=== PATIENT | female | born 1975 | race Caucasian/White ===

== ENCOUNTER 2020-08-24 10:10 | Day surgery (SDC) | payer OTHER, SELFPAY ==
[2020-08-17 19:44] VITALS: BMI 56.7
--- NOTE | 2020-08-23 10:45 | P.CONAN_ITS ---
HPI - Anesthesia Eval Consult details Narrative: 44yo F for Colonoscopy s/p gastric bypass 1999 [facility] Past Medical History Medical History Bipolar depression Contusion of right knee Encounter for insertion of mirena IUD Gastritis Heart murmur Hiatal hernia with GERD Moderate asthma DARRIUS on CPAP Rectovaginal fistula Urinary bladder disorder Vomiting Surgical History Surgical History Gastric bypass status for obesity (~1999) H/O dilation and curettage History of colonoscopy History of open reduction and internal fixation (ORIF) procedure Hx laparoscopic cholecystectomy (2009) Social History Social History Smoking Status: Never smoker Second Hand Smoke Exposure: No Meds Allergies Allergy/AdvReac Type Severity Reaction Status Date / Time nitrofurantoin Allergy Unknown unknown Verified 08/24/20 10:25 [From MACROBID] Adhesive Tape Allergy Unknown Hives Uncoded 08/24/20 10:25 macrobid Allergy Unknown Rash Uncoded 08/24/20 10:25 SEASONAL ALLERGIES Allergy Unknown respiratory Uncoded 08/24/20 10:25 symptoms Home Medications Medication Instructions Recorded Confirmed Type aripiprazole 10 mg PO DAILY 08/17/20 08/17/20 History clonazepam 1 tab PO BID 08/17/20 08/17/20 History fluticasone propion-salmeterol 2 inh INHALATION BID 08/17/20 08/17/20 History [Wixela Inhub] furosemide 20 mg PO DAILY PRN 08/17/20 08/17/20 History oxycodone-acetaminophen 1 tab PO QID 08/17/20 08/17/20 History Exam Exam Date and Time: August 23, 2020 1045 Height,Weight and Vital Signs: Height 5 ft 3 in Weight 145.15 kg Narrative Narrative: ECHO 09/2019: Essential nml study, cannot r/o PFO Assessment and Plan Assessment Anesthesia Assessment: Chart Reviewed
--- NOTE | 2020-08-24 10:21 | PC.NURSE ---
patient staters she has a mirena iud.
[2020-08-24 10:22] VITALS: BP 155/90; PULSE 77; RESP 106; TEMP 36.3; O2SAT 99
[2020-08-24] MEDS: Lactated Ringers 1,000 ML 100 ML IVCONT (10:34)
--- NOTE | 2020-08-24 11:06 | HO.ANESPROP2 ---
FORMERLY [facility], 1928–1983 Past Medical History Medical History Bipolar depression Contusion of right knee Encounter for insertion of mirena IUD Gastritis Heart murmur Hiatal hernia with GERD Moderate asthma DARRIUS on CPAP Rectovaginal fistula Urinary bladder disorder Vomiting Surgical History Surgical History Gastric bypass status for obesity (~1999) H/O dilation and curettage History of colonoscopy History of open reduction and internal fixation (ORIF) procedure Hx laparoscopic cholecystectomy (2009) Social History Social History Smoking Status: Never smoker Second Hand Smoke Exposure: No Use of substances other than those prescribed or required for medical reasons: No Advance Directives: No Advance Directives Information Provided: No Advance Directives on File: No Recently lost weight without trying: No Meds Allergies Allergy/AdvReac Type Severity Reaction Status Date / Time nitrofurantoin Allergy Unknown unknown Verified 08/24/20 10:25 [From MACROBID] Adhesive Tape Allergy Unknown Hives Uncoded 08/24/20 10:25 macrobid Allergy Unknown Rash Uncoded 08/24/20 10:25 SEASONAL ALLERGIES Allergy Unknown respiratory Uncoded 08/24/20 10:25 symptoms Home Medications Medication Instructions Recorded Confirmed Type aripiprazole 10 mg PO DAILY 08/17/20 08/17/20 History clonazepam 1 tab PO BID 08/17/20 08/17/20 History fluticasone propion-salmeterol 2 inh INHALATION BID 08/17/20 08/17/20 History [Wixela Inhub] furosemide 20 mg PO DAILY PRN 08/17/20 08/17/20 History oxycodone-acetaminophen 1 tab PO QID 08/17/20 08/17/20 History Exam Exam Date and Time: August 24, 2020 1106 Height,Weight and Vital Signs: Height 5 ft 3 in Weight 145.15 kg Last Vital Signs Temp 97.3 F 08/24/20 10:22 Pulse 77 08/24/20 10:22 Resp 106 H 08/24/20 10:22 BP 155/90 H 08/24/20 10:22 Pulse Ox 99 08/24/20 10:22 Airway Mallampati Class: II TM Dist: >3cm Neck ROM: Full Loose/Missing/Broken Teeth: No Heart: RRR Lungs: CTA Assessment and Plan Assessment Anesthesia Assessment: Anesthesia Plan Discussed and Chart Reviewed Final Anesthetic Review NPO: Yes ASA Class: III Final Preanesthetic Review: Meds/Allgs Chart Reviewed, Consent Obtained/Reviewed and Anes Risks/Benef Reviewed Patient Risk: Intermediate Procedure Risk: Intermediate Anesthetic Plan Anesthetic Plan: MAC: Disposition: Standard PACU
--- NOTE | 2020-08-24 11:20 | MHC.SHP ---
Pre-Procedural Eval Section B Chief Complaint: change in bowel habit Details of Present Illness: hx of rectovaginal fistula, uncertain etiology, assess for crohns Relevant Family History (Specify if Yes): No Relevant Social History: None Present Medications: see Short Stay Collaborative assessment Medical History: Significant History (Bipolar depression Contusion of right knee Gastritis Heart murmur Hiatal hernia with GERD Moderate asthma DARRIUS on CPAP Rectovaginal fistula Urinary bladder disorder Vomiting) History of Previous Operations: Relevant previous surgery/procedure and date(s) (Gastric bypass status for obesity (~1999) H/O dilation and curettage History of colonoscopy History of open reduction and internal fixation (ORIF) procedure Hx laparoscopic cholecystectomy (2009)) Allergies: Allergies Allergy/AdvReac Type Severity Reaction Status Date / Time nitrofurantoin Allergy Unknown unknown Verified 08/24/20 10:25 [From MACROBID] Adhesive Tape Allergy Unknown Hives Uncoded 08/24/20 10:25 macrobid Allergy Unknown Rash Uncoded 08/24/20 10:25 SEASONAL ALLERGIES Allergy Unknown respiratory Uncoded 08/24/20 10:25 symptoms Review of Systems Sugical H&P ROS: Negative: Constitution, Cardiovascular, Respiratory, Neurological, Psychiatric, Hem-Onc, Allergic/Immunologic, Gastrointestinal, Genitourinary, Musculoskeletal, Integumentary, Endocrine and Eyes/Ears/Nose/Throat Exam Surgical H&P Exam: Normal: HEENT, Normal: Heart, Normal: Lungs, Normal: Extremities, Normal: Abdomen, Normal: Skin and Normal: Neurological Plan Diagnosis/Plan: Unchanged I have reviewed the history and physical and performed a pertinent physical examination on my patient. No changes have occurred unless specified.
[2020-08-24 12:25] VITALS: BP 113/72; PULSE 100; RESP 14; TEMP 36.5; O2SAT 99
[2020-08-24 12:40] VITALS: BP 115/83; PULSE 79; RESP 18; TEMP 36.5; O2SAT 97
--- NOTE | 2020-08-24 14:02 | HO.POSTANES ---
Post Anesthesia Evaluation Post Anesthesia Evaluation Vital Signs: Vital Signs Temp Pulse Resp BP Pulse Ox 08/24/20 12:40 97.7 F 79 18 115/83 97 08/24/20 12:25 97.7 F 100 14 113/72 99 08/24/20 10:22 97.3 F 77 106 H 155/90 H 99 Anesthesia: Monitored Mental Status: Awake Pain Control: Satisfactory Nausea/Vomiting: None Hydration: Adequate Anesthesia-Related Issues: No Anes. Related Issues
--- NOTE | 2020-09-14 21:21 | P.OP_ITS ---
Operative Note Operative Note Date of Service: 08/24/20 Narrative: Date of Service: 08/24/20 Pre-op diagnosis: nausea, diarrhea, hx of rectovaginal fistula Post-op diagnosis: same Procedure: Operative Information Procedure Description: EGD, Colonoscopy FLEXIBLE TRANSORAL UPPER GASTROINTESTINAL ENDOSCOPY AND COLONOSCOPY PROCEDURE NOTE UPPER ENDOSCOPY Consent: Indications for the procedure and potential complications of bleeding, perforation, reaction to medications and missed diagnosis were discussed with the patient and informed consent was obtained. Instrument: Olympus GIF H 190 J mid size upper endoscope Monitoring: Vital signs and clinical assessment, continuous EKG monitoring, Pulse oximetry, Carbon Dioxide monitoring and blood pressure monitoring were done throughout the procedure. Procedure: The patient was placed in the left lateral decubitis position and pre-procedure medications were administered and a bite block was placed. The endoscope was inserted into the mouth and advanced under direct vision to the jejunum. A careful inspection was made as the upper endoscope was withdrawn including a retroflexed examination of the proximal stomach; Findings and interventions are described below. Hx of vianney en Y gastric bypass Findings: Larynx:normal Esophagus: GE junction at 37 cm, diaphragm hiatus at 37 cm, normal mucosa Stomach pouch: Normal mucosa. Biopsies were obtained. Grade 2 flap valve on retroflexed examination of the cardia. jejunum: some erythema and induration at the gastric anastomosis, bx taken Intervention: Biopsies as noted above COLONOSCOPY Instrument: Olympus variable stiffness pediatric scope 190L Colonoscopy Monitoring: Vital signs and clinical assessment, continuous EKG monitoring, Pulse oximetry, Carbon Dioxide monitoring and blood pressure monitoring were done throughout the procedure. Colon withdrawal time was 28 minutes. Procedure: The patient was placed in the left lateral decubitis position and pre-procedure medications were administered. After a digital rectal examination of the ano-rectum, the video colonoscope was inserted into the rectum and advanced through the colon to the cecum/TI. The colonoscope was slowly withdrawn in a retrograde panoramic fashion and the colon mucosa was carefully examined including a retroflexed view of the rectum. Findings and interventions are described below. Procedure Difficulty:moderate, LLQ pressure applied Seton noted on entry to the rectum Findings: Terminal Ileum-normal, bx taken random colon bx taken Cecum:normal Ascending Colon: normal Transverse Colon -normal Descending Colon:normal Sigmoid Colon: scattered small diverticula noted Rectum: Retroflexion with small internal hemorrhoids, grade I Anorectum - normal, seton noted Colon preparation: Colcord Bowel Preparation Scale Right colon; 2 Transverse colon: 3 Left colon; 3 (0 = Unprepared colon segment with mucosa not seen due to solid stool that cannot be cleared. 1 = Portion of mucosa of the colon segment seen, but other areas of the colon segment not well seen due to staining, residual stool and/or opaque liquid. 2 = Minor amount of residual staining, small fragments of stool and/or opaque liquid, but mucosa of colon segment seen well. 3 = Entire mucosa of colon segment seen well with no residual staining, small fragments of stool or opaque liquid) Impression and Post Procedure Diagnosis: Endoscopy Findings: mild anastomotic erythema Colonoscopy Findings: diverticulosis internal hemorrhoids Plan: Await Pathology results Repeat Colonoscopy in 10 years or earlier if clinically indicated High fiber diet leaflet avoid straining at stool, epsom salts and sitz bath, anusol supps or cream review if she has ever had Pelvic MRI given the fistula hx might consider trial of carafate given erythema in anastomosis site Above findings were reviewed with the patient and relevant handouts were provided if indicated. Surgeon: Yvon Gomez MD Anesthesia: MAC Estimated blood loss (mL): 0 Condition: stable Disposition: PACU
== END 2020-08-24 13:21 | disposition home or self-care (01) ==
PROVIDERS: PCP Internal Medicine; Visit Provider Internal Medicine Gastroenterology
PROC: (CPT 45380; principal; 2020-08-24 12:00)
DX: R19.4 Change in bowel habit (principal); K57.30 Diverticulosis of large intestine without perforation or abscess without bleeding; K64.0 First degree hemorrhoids; K29.80 Duodenitis without bleeding; K21.9 Gastro-esophageal reflux disease without esophagitis; K44.9 Diaphragmatic hernia without obstruction or gangrene; Z98.0 Intestinal bypass and anastomosis status; Z98.84 Bariatric surgery status; J45.909 Unspecified asthma, uncomplicated; G47.33 Obstructive sleep apnea (adult) (pediatric); Z79.899 Other long term (current) drug therapy; Z99.89 Dependence on other enabling machines and devices; Z90.49 Acquired absence of other specified parts of digestive tract
CPT/HCPCS: 45380; 43239; 88305; 88342; J2250; J2765

== ENCOUNTER → 2020-09-20 15:08 | Outpatient (BNVA) | payer OTHER, SELFPAY | PROVIDERS: PCP Internal Medicine; Visit Provider Internal Medicine Gastroenterology ==

== ENCOUNTER → 2020-12-13 15:41 | Outpatient (BNVA) | payer OTHER, SELFPAY | PROVIDERS: PCP Internal Medicine; Visit Provider Internal Medicine Gastroenterology ==

== ENCOUNTER → 2021-01-04 09:22 | Outpatient (REF) | payer OTHER, SELFPAY ==
--- NOTE | ~2021-01-04 | NM_ITS ---
EXAMINATION: NM HIDA SCAN CLINICAL INFORMATION: Left upper quadrant pain . COMPARISON: None TECHNIQUE: 5 mCi technetium mebrofenin. Imaging over the upper abdomen. FINDINGS: Uptake by the liver is within normal limits. There is ductal activity by 6 minutes. Bowel activity by 9 minutes. No evidence of gallbladder activity. Reportedly status post-cholecystectomy. NM/NM hepatobiliary wo pharm IMPRESSION: No suspicious finding in this patient which is reportedly status post-cholecystectomy.
== END ==
LOC: HO.NUCMED 09:22
PROVIDERS: PCP Internal Medicine; Visit Provider Internal Medicine Gastroenterology
DX: R10.12 Left upper quadrant pain (principal); R10.11 Right upper quadrant pain
CPT/HCPCS: 78226; A9537

== ENCOUNTER → 2021-03-13 08:04 | Outpatient (BNVA) | payer OTHER, SELFPAY | PROVIDERS: PCP Internal Medicine; Visit Provider Internal Medicine Gastroenterology ==

== ENCOUNTER → 2022-01-01 12:28 | Outpatient (BNVA) | payer OTHER, SELFPAY | PROVIDERS: PCP Internal Medicine; Visit Provider Internal Medicine Gastroenterology | DX: Z13.89 Encounter for screening for other disorder (principal) ==

== ENCOUNTER 2022-04-26 06:25 | Day surgery (SDC) | payer OTHER, SELFPAY ==
[2022-04-19 13:40] VITALS: BMI 45.7
--- NOTE | 2022-04-26 06:45 | P.HPSUR_ITS ---
Pre-Procedural Eval Section A Date of Service: 04/26/22 Section B Chief Complaint: Vomiting, Relevant Family History (Specify if Yes): No Relevant Social History: None Present Medications: see Short Stay Collaborative assessment Medical History: Significant History (Asthma Bipolar depression Contusion of right knee Encounter for insertion of mirena IUD Gastritis Heart murmur Hiatal hernia with GERD Moderate asthma DARRIUS on CPAP Rectovaginal fistula Urinary bladder disorder Vomiting) History of Previous Operations: Relevant previous surgery/procedure and date(s) (Gastric bypass status for obesity (~1999) H/O dilation and curettage History of colonoscopy History of esophagogastroduodenoscopy (EGD) History of open reduction and internal fixation (ORIF) procedure Hx laparoscopic cholecystectomy (2009)) Allergies: Allergies Allergy/AdvReac Type Severity Reaction Status Date / Time nitrofurantoin Allergy Unknown unknown Verified 03/13/21 08:05 [From MACROBID] NSAIDS (Non-Steroidal AdvReac Mild Stomach Verified 03/13/21 08:05 Anti-Inflamma issues Adhesive Tape Allergy Intermediate Hives Uncoded 04/19/22 13:24 SEASONAL ALLERGIES Allergy Intermediate respiratory Uncoded 04/19/22 13:24 symptoms Review of Systems Sugical H&P ROS: Negative: Constitution, Cardiovascular, Respiratory, Neurological, Psychiatric, Hem-Onc, Allergic/Immunologic, Gastrointestinal, Genitourinary, Musculoskeletal, Integumentary, Endocrine and Eyes/Ears/N ose/Throat Exam Surgical H&P Exam: Normal: HEENT, Normal: Heart, Normal: Lungs, Normal: Extremities, Normal: Abdomen, Normal: Skin and Normal: Neurological Plan Diagnosis/Plan: Unchanged I have reviewed the history and physical and performed a pertinent physical examination on my patient. No changes have occurred unless specified.
[2022-04-26 06:53] LABS: UPreg QC Valid YES; Urine Pregnancy NEGATIVE (NEGATIVE)
[2022-04-26] MEDS: Lactated Ringers 1,000 ML 50 ML IVCONT (06:55)
[2022-04-26 06:56] VITALS: BP 103/70; PULSE 80; RESP 16; TEMP 36.4; O2SAT 98
--- NOTE | 2022-04-26 07:33 | HO.ANESPROP2 ---
HPI - Anesthesia Eval Consult details Narrative: 46 yo female patient for EGD PMFSH Active Problems Active Problems: All Active Problems (Updated 04/19/22 @ 13:40 by Alicia Damon RN) LUQ pain (Acute) Diarrhea (Acute) RUQ pain (Acute) Colovaginal fistula (Acute) Colovesical fistula (Acute) DARRIUS. On CPAP Morbid obesity Past Medical History Medical History Asthma Bipolar depression Contusion of right knee Encounter for insertion of mirena IUD Gastritis Heart murmur Hiatal hernia with GERD Moderate asthma DARRIUS on CPAP Rectovaginal fistula Urinary bladder disorder Vomiting Family History Family History Father Hx of type 1 diabetes mellitus Mother Hx of colon cancer, stage IV Family history of problems with anesthesia: No Surgical History Surgical History Gastric bypass status for obesity (~1999) H/O dilation and curettage History of colonoscopy History of esophagogastroduodenoscopy (EGD) History of open reduction and internal fixation (ORIF) procedure Hx laparoscopic cholecystectomy (2009) History of Problems with Anesthesia: No Social History Social History Household Members: Spouse Alcohol intake: current Alcohol intake frequency: does not drink Patient Tobacco Use Status: Never used Tobacco Second Hand Smoke Exposure: No Use of substances other than those prescribed or required for medical reasons: No Are you DNR?: No Advance Directives: No (states is HCP) Advance Directives Information Provided: Yes (as above noted) Advance Directives on File: No Recently lost weight without trying: No Eating poorly because of decreased appetite: No Nutrition Risks: No Nutritional Risk Meds Allergies Allergy/AdvReac Type Severity Reaction Status Date / Time nitrofurantoin Allergy Unknown unknown Verified 03/13/21 08:05 [From MACROBID] NSAIDS (Non-Steroidal AdvReac Mild Stomach Verified 03/13/21 08:05 Anti-Inflamma issues Adhesive Tape Allergy Intermediate Hives Uncoded 04/19/22 13:24 SEASONAL ALLERGIES Allergy Intermediate respiratory Uncoded 04/19/22 13:24 symptoms Active Medications: Current Medications Albuterol Sulfate (Albuterol Sulfate (0.083%) 2.5 Mg/3 Ml Vial.Neb) 2.5 mg INHALE ONCE PRN PRN Reason: Shortness of Breath/Wheezing Lactated Ringer's (Lr) 1,000 mls @ 50 mls/hr IVCONT .Q20H SCOTTY Last Admin: 04/26/22 06:55 Dose: 50 mls/hr Home Medications Medication Instructions Recorded Confirmed Last Taken Type aripiprazole 10 mg tablet 5 mg PO DAILY 08/17/20 04/19/22 Unknown History clonazepam 1 mg tablet 1 tab PO BID 08/17/20 04/19/22 Unknown History fluticasone 250 mcg-salmeterol 50 2 inh inhalation BID 08/17/20 08/17/20 Unknown History mcg/dose blistr powdr for inhalation (Marivel Inhub) oxycodone-acetaminophen 5 mg-325 1 tab PO QID 08/17/20 04/19/22 Unknown History mg tablet nystatin 100,000 unit/gram topical topical 12/13/20 Unknown History powder albuterol sulfate 90 mcg/actuation 2 puff inhalation Q4-6H PRN 04/19/22 04/26/22 04/26/22 05:00 History aerosol inhaler (ProAir HFA) Wheezing gabapentin 300 mg capsule 1 cap PO TID 04/19/22 04/19/22 Unknown History ipratropium 0.5 mg-albuterol 3 mg 3 ml inhalation Q4-6H PRN Wheezing 04/19/22 04/19/22 Unknown History (2.5 mg base)/3 mL nebulization soln loperamide 2 mg capsule 1 cap PO DAILY PRN Loose Stool 04/19/22 04/19/22 Unknown History Exam Exam Date and Time: April 26, 2022 0733 Height,Weight and Vital Signs: Height 5 ft 2 in Weight 113.398 kg Last Vital Signs Temp 97.5 F 04/26/22 06:56 Pulse 80 04/26/22 06:56 Resp 16 04/26/22 06:56 BP 103/70 04/26/22 06:56 Pulse Ox 98 04/26/22 06:56 O2 Del Method 04/26/22 06:56 Pertinent Lab Results Pertinent Lab Results: Laboratory Tests 04/26/22 06:37 Urine Test NEGATIVE Airway Mallampati Class: II TM Dist: >3cm Neck ROM: Full Loose/Missing/Broken Teeth: No (Crowns intact. No broken, missing or loose teeth per patient) Heart: RRR Lungs: Diminished. Clear bilaterally Assessment and Plan Assessment Anesthesia Assessment: Anesthesia Plan Discussed and Chart Reviewed Final Anesthetic Review Family History of Problems with Anesthesia: No History of Problems with Anesthesia: No NPO: Yes ASA Class: III Final Preanesthetic Review: No Changes in Pt Med Stat, Meds/Allgs Chart Reviewed, Consent Obtained/Reviewed and Anes Risks/Benef Reviewed Patient Risk: Intermediate Procedure Risk: Low Assessment/Block/Sedation in SS: Assess/Block/Sedation-SS Anesthetic Plan Anesthetic Plan: MAC: Disposition: Standard PACU
--- NOTE | 2022-04-26 08:44 | W.PM.OPN ---
Operative Note Operative Note Date of Service: 04/26/22 Narrative: Procedure Description: EGD Indication: vomiting Anesthesia: MAC FLEXIBLE TRANSORAL UPPER GASTROINTESTINAL ENDOSCOPY UPPER ENDOSCOPY Consent: Indications for the procedure and potential complications of bleeding, perforation, reaction to medications and missed diagnosis were discussed with the patient and informed consent was obtained. Instrument: Olympus GIF H 190 J mid size upper endoscope Monitoring: Vital signs and clinical assessment, continuous EKG monitoring, Pulse oximetry, Carbon Dioxide monitoring and blood pressure monitoring were done throughout the procedure. Procedure: The patient was placed in the left lateral decubitis position and pre-procedure medications were administered and a bite block was placed. The endoscope was inserted into the mouth and advanced under direct vision to the jejunum. A careful inspection was made as the upper endoscope was withdrawn including a retroflexed examination of the proximal stomach; Findings and interventions are described below. Findings: Larynx:normal Esophagus: GE junction at 30 cm, diaphragm hiatus at 34 cm, consistent with 4 cm sliding hiatal hernia. Stomach pouch: normal mucosa. Grade 2 flap valve on retroflexed examination of the cardia. At gastric outlet edema and erythema noted with distortion. jejunum: on jejunal side ulcer noted, austin grade III about 10-14 mm in diamter, bx taken Intervention: Biopsies as noted above Impression/Findings: anastomotic ulcer hiatal hernia PLAN: check h pylori breath test if not taking PPI, see if can do today, otherwise bring her back high dose PPI for 3 months with sucralfate avoid nsaids, avoid smoking
[2022-04-26 08:50] VITALS: BP 103/71; PULSE 76; RESP 16; TEMP 36.4; O2SAT 96
[2022-04-26 09:05] VITALS: BP 109/71; PULSE 61; RESP 15; O2SAT 96
[2022-04-26 09:20] VITALS: BP 116/75; PULSE 69; RESP 16; TEMP 37; O2SAT 96
== END 2022-04-26 09:53 | disposition home or self-care (01) ==
PROVIDERS: Anesthesiology; PCP Internal Medicine; Visit Provider Internal Medicine Gastroenterology
PROC: 0DJ08ZZ Inspection of Upper Intestinal Tract, Via Natural or Artificial Opening Endoscopic (ICD-10-PCS; CPT 43235; principal; 2022-04-26 08:00)
DX: R11.10 Vomiting, unspecified (principal); K28.9 Gastrojejunal ulcer, unspecified as acute or chronic, without hemorrhage or perforation; K44.9 Diaphragmatic hernia without obstruction or gangrene; K21.9 Gastro-esophageal reflux disease without esophagitis; K29.70 Gastritis, unspecified, without bleeding; Z98.84 Bariatric surgery status; E03.9 Hypothyroidism, unspecified; J45.909 Unspecified asthma, uncomplicated; G47.33 Obstructive sleep apnea (adult) (pediatric); F31.9 Bipolar disorder, unspecified; Z79.51 Long term (current) use of inhaled steroids; Z79.899 Other long term (current) drug therapy; Z99.89 Dependence on other enabling machines and devices; Z88.1 Allergy status to other antibiotic agents; Z88.8 Allergy status to other drugs, medicaments and biological substances; Z90.49 Acquired absence of other specified parts of digestive tract
CPT/HCPCS: 43239; 81025; 88305; 88342; J2250

== ENCOUNTER 2022-10-02 11:22 | Day surgery (SDC) | payer OTHER, SELFPAY ==
[2022-10-02 11:29] LABS: UPreg QC Valid YES; Urine Pregnancy NEGATIVE (NEGATIVE)
[2022-10-02 11:32] VITALS: BP 114/69; PULSE 87; RESP 18; TEMP 36.3; O2SAT 98; BMI 59.1
--- NOTE | 2022-10-02 11:36 | HO.ANESPROP2 ---
HPI - Anesthesia Eval Consult details Narrative: 46 yo female patient for EGD PMFSH Active Problems Active Problems: All Active Problems (Updated 04/19/22 @ 13:40 by Alicia Damon RN) LUQ pain (Acute) Diarrhea (Acute) RUQ pain (Acute) Colovaginal fistula (Acute) Colovesical fistula (Acute) Past Medical History Medical History Asthma Bipolar depression Contusion of right knee Encounter for insertion of mirena IUD Gastritis Heart murmur Hiatal hernia with GERD Moderate asthma DARRIUS on CPAP Rectovaginal fistula Urinary bladder disorder Vomiting Family History Family History Father Hx of type 1 diabetes mellitus Mother Hx of colon cancer, stage IV Family history of problems with anesthesia: No Surgical History Surgical History Gastric bypass status for obesity (~1999) H/O dilation and curettage History of colonoscopy History of esophagogastroduodenoscopy (EGD) History of open reduction and internal fixation (ORIF) procedure Hx laparoscopic cholecystectomy History of Problems with Anesthesia: No Social History Social History Household Members: Spouse Alcohol intake: current Alcohol intake frequency: does not drink Patient Tobacco Use Status: Never used Tobacco Second Hand Smoke Exposure: No Advance Directives: No Advance Directives Information Provided: Yes Meds Allergies Allergy/AdvReac Type Severity Reaction Status Date / Time nitrofurantoin Allergy Unknown unknown Verified 07/02/22 13:46 [From MACROBID] NSAIDS (Non-Steroidal AdvReac Mild Stomach Verified 07/02/22 13:46 Anti-Inflamma issues Adhesive Tape Allergy Intermediate Hives Uncoded 07/02/22 13:46 SEASONAL ALLERGIES Allergy Intermediate respiratory Uncoded 07/02/22 13:46 symptoms Active Medications: Current Medications Lactated Ringer's (Lr) 1,000 mls @ 50 mls/hr IVCONT .Q20H [facility] Home Medications Medication Instructions Recorded Confirmed Last Taken Type aripiprazole 10 mg tablet 5 mg PO DAILY 08/17/20 09/25/22 Unknown History clonazepam 1 mg tablet 1 tab PO BID 08/17/20 09/25/22 Unknown History fluticasone 250 mcg-salmeterol 50 2 inh inhalation BID 08/17/20 09/25/22 Unknown History mcg/dose blistr powdr for inhalation (Guanakitogurpreetelizabeth Inhub) nystatin 100,000 unit/gram topical topical 12/13/20 Unknown History powder albuterol sulfate 90 mcg/actuation 2 puff inhalation Q4-6H PRN 04/19/22 09/25/22 04/26/22 05:00 History aerosol inhaler (ProAir HFA) Wheezing gabapentin 300 mg capsule 1 cap PO TID 04/19/22 04/19/22 Unknown History ipratropium 0.5 mg-albuterol 3 mg 3 ml inhalation Q4-6H PRN Wheezing 04/19/22 09/25/22 Unknown History (2.5 mg base)/3 mL nebulization soln loperamide 2 mg capsule 1 cap PO DAILY PRN Loose Stool 04/19/22 09/25/22 Unknown History [id number] 2 cap PO BID 05/28/22 09/25/22 Unknown History 50 mg-300 mg-40 mg capsule lamotrigine 25 mg tablet 25 mg PO 05/28/22 Unknown History Exam Exam Date and Time: October 02, 2022 1136 Height,Weight and Vital Signs: Height 5 ft 2 in Weight 146.51 kg Vital Signs Temp Pulse Resp BP Pulse Ox O2 Del Method 10/02/22 11:32 97.4 F 87 18 114/69 98 Room Air Pertinent Lab Results Pertinent Lab Results: Laboratory Tests 10/02/22 Unknown Urine Test NEGATIVE Airway Mallampati Class: III TM Dist: >3cm Neck ROM: Full Loose/Missing/Broken Teeth: No (Denies broken, loose, missing teeth) Heart: RRR Lungs: CTAB Assessment and Plan Assessment Anesthesia Assessment: Anesthesia Plan Discussed and Chart Reviewed Final Anesthetic Review Family History of Problems with Anesthesia: No History of Problems with Anesthesia: No NPO: Yes ASA Class: III Final Preanesthetic Review: No Changes in Pt Med Stat, Meds/Allgs Chart Reviewed, Consent Obtained/Reviewed and Anes Risks/Benef Reviewed Patient Risk: Intermediate Procedure Risk: Low Assessment/Block/Sedation in SS: Assess/Block/Sedation-SS Anesthetic Plan Anesthetic Plan: MAC: Disposition: Standard PACU
--- NOTE | 2022-10-02 11:59 | MHC.SHP ---
Pre-Procedural Eval Section A Date of Service: 10/02/22 Section B Chief Complaint: Gastric ulcer, unspecified as acute or chronic, Relevant Family History (Specify if Yes): No Relevant Social History: None Present Medications: see Short Stay Collaborative assessment Medical History: Significant History (Asthma Bipolar depression Contusion of right knee Encounter for insertion of mirena IUD Gastritis Heart murmur Hiatal hernia with GERD Moderate asthma DARRIUS on CPAP Rectovaginal fistula Urinary bladder disorder Vomiting) History of Previous Operations: Relevant previous surgery/procedure and date(s) (Gastric bypass status for obesity (~1999) H/O dilation and curettage History of colonoscopy History of esophagogastroduodenoscopy (EGD) History of open reduction and internal fixation (ORIF) procedure Hx laparoscopic cholecystectomy) Allergies: Allergies Allergy/AdvReac Type Severity Reaction Status Date / Time nitrofurantoin Allergy Unknown unknown Verified 07/02/22 13:46 [From MACROBID] NSAIDS (Non-Steroidal AdvReac Mild Stomach Verified 07/02/22 13:46 Anti-Inflamma issues Adhesive Tape Allergy Intermediate Hives Uncoded 07/02/22 13:46 SEASONAL ALLERGIES Allergy Intermediate respiratory Uncoded 07/02/22 13:46 symptoms Review of Systems Sugical H&P ROS: Negative: Constitution, Cardiovascular, Respiratory, Neurological, Psychiatric, Hem-Onc, Allergic/Immunologic, Gastrointestinal, Genitourinary, Musculoskeletal, Integumentary, Endocrine and Eyes/Ears/Nose/Throat Exam Surgical H&P Exam: Normal: HEENT, Normal: Heart, Normal: Lungs, Normal: Extremities, Normal: Abdomen, Normal: Skin and Normal: Neurological Plan Diagnosis/Plan: Unchanged I have reviewed the history and physical and performed a pertinent physical examination on my patient. No changes have occurred unless specified. Possible push enteroscopy if standard eGD is normal Time Spent With Patient Time: Total time managing care of this patient today ____ minutes.
--- NOTE | 2022-10-02 12:00 | W.PM.OPN ---
Operative Note Operative Note Date of Service: 10/02/22 Narrative: Procedure Description: EGD Indication: hx of anastomotic ulcer Anesthesia: MAC FLEXIBLE TRANSORAL UPPER GASTROINTESTINAL ENDOSCOPY UPPER ENDOSCOPY Consent: Indications for the procedure and potential complications of bleeding, perforation, reaction to medications and missed diagnosis were discussed with the patient and informed consent was obtained. Instrument: Olympus GIF H 190 J mid size upper endoscope Monitoring: Vital signs and clinical assessment, continuous EKG monitoring, Pulse oximetry, Carbon Dioxide monitoring and blood pressure monitoring were done throughout the procedure. Procedure: The patient was placed in the left lateral decubitis position and pre-procedure medications were administered and a bite block was placed. The endoscope was inserted into the mouth and advanced under direct vision to the third part of duodenum. A careful inspection was made as the upper endoscope was withdrawn including a retroflexed examination of the proximal stomach; Findings and interventions are described below. Findings: Larynx:normal Esophagus: GE junction at 30? cm, diaphragm hiatus at 34 cm, consistent with 4 cm sliding hiatal hernia. Stomach pouch: normal mucosa.? Grade 2 flap valve on retroflexed examination of the cardia. jejunum: on jejunal side ulcer noted, austin grade III about 10 mm in diamter, with a small adjacent erosion and some erythema and edema Intervention: none Impression/Findings: anastomotic ulcer and erosion hiatal hernia PLAN: ensure taking PPI and carafate, might increase carafate to 1 g QID, check if taking H2 juarez as well overall appearances are slightly improved from before
[2022-10-02 12:30] VITALS: BP 109/70; PULSE 73; RESP 19; TEMP 36.3; O2SAT 99
[2022-10-02 12:45] VITALS: BP 132/79; PULSE 71; RESP 20; TEMP 36.3; O2SAT 97
== END 2022-10-02 13:28 | disposition home or self-care (01) ==
PROVIDERS: Anesthesiology; PCP Internal Medicine; Visit Provider Internal Medicine Gastroenterology
PROC: 0DJ08ZZ Inspection of Upper Intestinal Tract, Via Natural or Artificial Opening Endoscopic (ICD-10-PCS; CPT 43235; principal; 2022-10-02 13:00)
DX: K28.9 Gastrojejunal ulcer, unspecified as acute or chronic, without hemorrhage or perforation (principal); K21.9 Gastro-esophageal reflux disease without esophagitis; K44.9 Diaphragmatic hernia without obstruction or gangrene; G47.33 Obstructive sleep apnea (adult) (pediatric); J45.909 Unspecified asthma, uncomplicated; Z79.51 Long term (current) use of inhaled steroids; Z79.899 Other long term (current) drug therapy; Z99.89 Dependence on other enabling machines and devices; Z88.8 Allergy status to other drugs, medicaments and biological substances; Z91.040 Latex allergy status; Z98.84 Bariatric surgery status
CPT/HCPCS: 43235; 81025

== ENCOUNTER → 2022-10-15 08:44 | Outpatient (BNVA) | payer OTHER, SELFPAY | PROVIDERS: PCP Internal Medicine; Visit Provider Internal Medicine Gastroenterology | DX: Z13.89 Encounter for screening for other disorder (principal) ==

== ENCOUNTER 2023-02-20 12:30 | Day surgery (SDC) | payer OTHER, SELFPAY ==
--- NOTE | 2023-02-19 11:52 | HO.ANESPROP2 ---
Documented by User: Candi Fontana NP 02/19/23 11:52 HPI - Anesthesia Eval Consult details Narrative: 47yo F for Upper Endoscopy PMFSH Active Problems Active Problems: All Active Problems (Updated 12/06/22 @ 15:15 by Yvon Gomez MD) LUQ pain (Acute) Diarrhea (Acute) RUQ pain (Acute) Colovaginal fistula (Acute) Colovesical fistula (Acute) (Acute) Past Medical History Medical History (Updated 12/06/22 @ 15:15 by Yvon Gomez MD) Asthma Bipolar depression Contusion of right knee Encounter for insertion of mirena IUD Gastritis Heart murmur Hiatal hernia with GERD Moderate asthma DARRIUS on CPAP Rectovaginal fistula Urinary bladder disorder Vomiting Family History Family History Father Hx of type 1 diabetes mellitus Mother Hx of colon cancer, stage IV Family history of problems with anesthesia: No Surgical History Surgical History (Updated 02/20/23 @ 12:52 by Susie Campbell) Gastric bypass status for obesity (~1999) H/O dilation and curettage H/O hernia repair History of colonoscopy History of esophagogastroduodenoscopy (EGD) History of open reduction and internal fixation (ORIF) procedure Hx laparoscopic cholecystectomy History of Problems with Anesthesia: No Social History Social History Household Members: Spouse Alcohol intake: current Alcohol intake frequency: does not drink Patient Tobacco Use Status: Former Tobacco user Tobacco use type: Cigarette Second Hand Smoke Exposure: No Meds Allergies Allergy/AdvReac Type Severity Reaction Status Date / Time nitrofurantoin Allergy Unknown respiratory Verified 02/20/23 12:51 [From MACROBID] symptoms NSAIDS (Non-Steroidal AdvReac Mild Stomach Verified 02/20/23 12:51 Anti-Inflamma issues Adhesive Tape Allergy Intermediate Hives Uncoded 02/20/23 12:51 SEASONAL ALLERGIES Allergy Intermediate respiratory Uncoded 02/20/23 12:51 symptoms Home Medications Medication Instructions Recorded Confirmed Last Taken Type aripiprazole 10 mg tablet 5 mg PO DAILY 08/17/20 02/15/23 Unknown History clonazepam 1 mg tablet 1 tab PO BID 08/17/20 02/15/23 Unknown History fluticasone 250 mcg-salmeterol 50 2 inh inhalation BID 08/17/20 02/15/23 Unknown History mcg/dose blistr powdr for inhalation (Marivel Inhub) nystatin 100,000 unit/gram topical topical 12/13/20 Unknown History powder albuterol sulfate 90 mcg/actuation 2 puff inhalation Q4-6H PRN 04/19/22 02/15/23 04/26/22 05:00 History aerosol inhaler (ProAir HFA) Wheezing gabapentin 300 mg capsule 1 cap PO TID 04/19/22 02/15/23 Unknown History ipratropium 0.5 mg-albuterol 3 mg 3 ml inhalation Q4-6H PRN Wheezing 04/19/22 02/15/23 Unknown History (2.5 mg base)/3 mL nebulization soln loperamide 2 mg capsule 1 cap PO DAILY PRN Loose Stool 04/19/22 02/15/23 Unknown History wcuuqiouru-qxorwvuestbiw-ujpgkmax 2 cap PO BID 05/28/22 02/15/23 Unknown History 50 mg-300 mg-40 mg capsule lamotrigine 25 mg tablet 25 mg PO 05/28/22 Unknown History ondansetron 8 mg disintegrating 8 mg PO Q8H PRN Nausea And Vomiting 02/15/23 02/15/23 Unknown History tablet Exam Exam Date and Time: February 19, 2023 115 Assessment and Plan Assessment Anesthesia Assessment: Chart Reviewed Final Anesthetic Review Family History of Problems with Anesthesia: No History of Problems with Anesthesia: No Documented by User: Andie Conley MD 02/22/23 12:55 [facility] Past Medical History Medical History (Updated 12/06/22 @ 15:15 by Yvon Gomez MD) Asthma Bipolar depression Contusion of right knee Encounter for insertion of mirena IUD Gastritis Heart murmur Hiatal hernia with GERD Moderate asthma DARRIUS on CPAP Rectovaginal fistula Urinary bladder disorder Vomiting Family History Family History Father Hx of type 1 diabetes mellitus Mother Hx of colon cancer, stage IV Surgical History Surgical History (Updated 02/20/23 @ 12:52 by Susie Campbell) Gastric bypass status for obesity (~1999) H/O dilation and curettage H/O hernia repair History of colonoscopy History of esophagogastroduodenoscopy (EGD) History of open reduction and internal fixation (ORIF) procedure Hx laparoscopic cholecystectomy Social History Social History Household Members: Spouse Alcohol intake: current Alcohol intake frequency: does not drink Patient Tobacco Use Status: Former Tobacco user Tobacco use type: Cigarette Second Hand Smoke Exposure: No Meds Allergies Allergy/AdvReac Type Severity Reaction Status Date / Time nitrofurantoin Allergy Unknown respiratory Verified 02/20/23 12:51 [From MACROBID] symptoms NSAIDS (Non-Steroidal AdvReac Mild Stomach Verified 02/20/23 12:51 Anti-Inflamma issues Adhesive Tape Allergy Intermediate Hives Uncoded 02/20/23 12:51 SEASONAL ALLERGIES Allergy Intermediate respiratory Uncoded 02/20/23 12:51 symptoms Home Medications Medication Instructions Recorded Confirmed Last Taken Type aripiprazole 10 mg tablet 5 mg PO DAILY 08/17/20 02/15/23 Unknown History clonazepam 1 mg tablet 1 tab PO BID 08/17/20 02/15/23 Unknown History fluticasone 250 mcg-salmeterol 50 2 inh inhalation BID 08/17/20 02/15/23 Unknown History mcg/dose blistr powdr for inhalation (Wixela Inhub) nystatin 100,000 unit/gram topical topical 12/13/20 Unknown History powder albuterol sulfate 90 mcg/actuation 2 puff inhalation Q4-6H PRN 04/19/22 02/15/23 04/26/22 05:00 History aerosol inhaler (ProAir HFA) Wheezing gabapentin 300 mg capsule 1 cap PO TID 04/19/22 02/15/23 Unknown History ipratropium 0.5 mg-albuterol 3 mg 3 ml inhalation Q4-6H PRN Wheezing 04/19/22 02/15/23 Unknown History (2.5 mg base)/3 mL nebulization soln loperamide 2 mg capsule 1 cap PO DAILY PRN Loose Stool 04/19/22 02/15/23 Unknown History nvqyuzaxgx-yduwvvevabdph-vmkocqmf 2 cap PO BID 05/28/22 02/15/23 Unknown History 50 mg-300 mg-40 mg capsule lamotrigine 25 mg tablet 25 mg PO 05/28/22 Unknown History ondansetron 8 mg disintegrating 8 mg PO Q8H PRN Nausea And Vomiting 02/15/23 02/15/23 Unknown History tablet Exam Airway Mallampati Class: III TM Dist: >3cm Neck ROM: Full Heart: rrr Lungs: cta Assessment and Plan Assessment Anesthesia Assessment: Anesthesia Plan Discussed Final Anesthetic Review NPO: Yes ASA Class: III Final Preanesthetic Review: No Changes in Pt Med Stat, Meds/Allgs Chart Reviewed and Consent Obtained/Reviewed Patient Risk: Intermediate Procedure Risk: Intermediate Anesthetic Plan Anesthetic Plan: MAC: Disposition: Standard PACU
[2023-02-20 12:55] VITALS: BMI 56.3
[2023-02-20 13:05] VITALS: BP 127/63; PULSE 56; RESP 16; TEMP 36.9; O2SAT 98
[2023-02-20] MEDS: Lactated Ringers 1,000 ML 100 ML IVCONT (13:27)
--- NOTE | 2023-02-20 13:35 | MHC.SHP ---
Pre-Procedural Eval Section A Date of Service: 02/20/23 Section B Chief Complaint: Nausea Relevant Family History (Specify if Yes): No Relevant Social History: None Present Medications: see Short Stay Collaborative assessment Medical History: Significant History (Asthma Bipolar depression Contusion of right knee Encounter for insertion of mirena IUD Gastritis Heart murmur Hiatal hernia with GERD Moderate asthma DARRIUS on CPAP Rectovaginal fistula Urinary bladder disorder Vomiting) History of Previous Operations: Relevant previous surgery/procedure and date(s) (Gastric bypass status for obesity (~1999) H/O dilation and curettage H/O hernia repair History of colonoscopy History of esophagogastroduodenoscopy (EGD) History of open reduction and internal fixation (ORIF) procedure Hx laparoscopic cholecystectomy) Allergies: Allergies Allergy/AdvReac Type Severity Reaction Status Date / Time nitrofurantoin Allergy Unknown respiratory Verified 02/20/23 12:51 [From MACROBID] symptoms NSAIDS (Non-Steroidal AdvReac Mild Stomach Verified 02/20/23 12:51 Anti-Inflamma issues Adhesive Tape Allergy Intermediate Hives Uncoded 02/20/23 12:51 SEASONAL ALLERGIES Allergy Intermediate respiratory Uncoded 02/20/23 12:51 symptoms Review of Systems Sugical H&P ROS: Negative: Constitution, Cardiovascular, Respiratory, Neurological, Psychiatric, Hem-Onc, Allergic/Immunologic, Gastrointestinal, Genitourinary, Musculoskeletal, Integumentary, Endocrine and Eyes/Ears/Nose/Throat Exam Surgical H&P Exam: Normal: HEENT, Normal: Heart, Normal: Lungs, Normal: Extremities, Normal: Abdomen, Normal: Skin and Normal: Neurological Plan Diagnosis/Plan: Unchanged I have reviewed the history and physical and performed a pertinent physical examination on my patient. No changes have occurred unless specified. Time Spent With Patient Time: Total time managing care of this patient today ____ minutes.
[2023-02-20 14:01] LABS: HCG Quantitative < 2 mIU/mL
--- NOTE | 2023-02-20 14:06 | W.PM.OPN ---
Operative Note Operative Note Date of Service: 02/20/23 Narrative: Procedure Description: EGD Indication: hx of marginal ulceration Anesthesia: MAC FLEXIBLE TRANSORAL UPPER GASTROINTESTINAL ENDOSCOPY UPPER ENDOSCOPY Consent: Indications for the procedure and potential complications of bleeding, perforation, reaction to medications and missed diagnosis were discussed with the patient and informed consent was obtained. Instrument: Olympus GIF H 190 J mid size upper endoscope Monitoring: Vital signs and clinical assessment, continuous EKG monitoring, Pulse oximetry, Carbon Dioxide monitoring and blood pressure monitoring were done throughout the procedure. Procedure: The patient was placed in the left lateral decubitis position and pre-procedure medications were administered and a bite block was placed. The endoscope was inserted into the mouth and advanced under direct vision to the third part of duodenum. A careful inspection was made as the upper endoscope was withdrawn including a retroflexed examination of the proximal stomach; Findings and interventions are described below. Findings: Larynx:normal Esophagus: GE junction at 30? cm, diaphragm hiatus at 34 cm, consistent with 4 cm sliding hiatal hernia. Stomach pouch: normal mucosa.? Grade 2 flap valve on retroflexed examination of the cardia. jejunum: on jejunal side of anstomosis there is mild erythema with slight erosions, but improved as compared to before Intervention: none Impression/Findings: anastomotic erythema and erosion--improved from before hiatal hernia PLAN: cont taking PPI and carafate, f/u with bariatrics at [facility]
[2023-02-20 14:24] VITALS: BP 114/61; BP 115/63; PULSE 56; PULSE 59; RESP 16; TEMP 36.4; TEMP 36.8; O2SAT 96
== END 2023-02-20 15:06 | disposition home or self-care (01) ==
PROVIDERS: Nurse Practitioner; PCP Internal Medicine; Visit Provider Internal Medicine Gastroenterology
PROC: 0DJ08ZZ Inspection of Upper Intestinal Tract, Via Natural or Artificial Opening Endoscopic (ICD-10-PCS; CPT 43235; principal; 2023-02-20 14:10)
DX: R11.0 Nausea (principal); Z98.84 Bariatric surgery status; K28.9 Gastrojejunal ulcer, unspecified as acute or chronic, without hemorrhage or perforation; K21.9 Gastro-esophageal reflux disease without esophagitis; K44.9 Diaphragmatic hernia without obstruction or gangrene; K29.70 Gastritis, unspecified, without bleeding; G47.33 Obstructive sleep apnea (adult) (pediatric); J45.909 Unspecified asthma, uncomplicated; F31.9 Bipolar disorder, unspecified; R01.1 Cardiac murmur, unspecified; E03.9 Hypothyroidism, unspecified; Z99.89 Dependence on other enabling machines and devices; Z79.51 Long term (current) use of inhaled steroids; Z79.899 Other long term (current) drug therapy; Z88.1 Allergy status to other antibiotic agents; Z88.8 Allergy status to other drugs, medicaments and biological substances; L23.1 Allergic contact dermatitis due to adhesives; Z90.49 Acquired absence of other specified parts of digestive tract; Z87.891 Personal history of nicotine dependence
CPT/HCPCS: 43235; 36415; 84702

== ENCOUNTER → 2023-10-23 09:21 | Outpatient (BNVA) | payer OTHER, SELFPAY | PROVIDERS: PCP Internal Medicine; Visit Provider Internal Medicine | DX: Z13.89 Encounter for screening for other disorder (principal) | CPT/HCPCS: 99202 ==

== ENCOUNTER → 2023-10-28 11:26 | Outpatient (BNVA) | payer OTHER, SELFPAY | PROVIDERS: PCP Internal Medicine; Visit Provider Internal Medicine | DX: Z13.89 Encounter for screening for other disorder (principal) | CPT/HCPCS: 99213 ==

== ENCOUNTER → 2023-10-30 10:34 | Outpatient (BNVA) | payer OTHER, SELFPAY | PROVIDERS: PCP Internal Medicine; Visit Provider Internal Medicine | DX: Z13.89 Encounter for screening for other disorder (principal) | CPT/HCPCS: 99213 ==

== ENCOUNTER → 2023-11-04 09:46 | Outpatient (BNVA) | payer OTHER, SELFPAY | PROVIDERS: PCP Internal Medicine; Visit Provider Internal Medicine | DX: Z13.89 Encounter for screening for other disorder (principal) | CPT/HCPCS: 99213 ==

== ENCOUNTER 2023-11-13 10:42 | Day surgery (SDC) | payer OTHER, SELFPAY ==
[2023-11-13 11:51] VITALS: BMI 56.3
[2023-11-13 12:01] LABS: UPreg QC Valid YES; Urine Pregnancy NEGATIVE (NEGATIVE)
[2023-11-13 12:02] VITALS: BP 135/90; PULSE 75; RESP 16; TEMP 36.7; O2SAT 98
--- NOTE | 2023-11-13 12:15 | HO.ANESPROP2 ---
HPI - Anesthesia Eval Consult details Narrative: for EGD PMFSH Active Problems Active Problems: All Active Problems (Updated 12/06/22 @ 15:15 by Yvon Gomez MD) (Acute) Colovesical fistula (Acute) Colovaginal fistula (Acute) RUQ pain (Acute) Diarrhea (Acute) LUQ pain (Acute) Past Medical History Medical History (Updated 12/06/22 @ 15:15 by Yvon Gomez MD) Asthma Encounter for insertion of mirena IUD DARRIUS on CPAP Urinary bladder disorder Hiatal hernia with GERD Rectovaginal fistula Contusion of right knee Gastritis Vomiting Heart murmur Bipolar depression Moderate asthma Patient : No Family History Family History Father Hx of type 1 diabetes mellitus Mother Hx of colon cancer, stage IV Family history of problems with anesthesia: No Surgical History Surgical History (Updated 02/20/23 @ 12:52 by Susie Campbell) H/O hernia repair History of esophagogastroduodenoscopy (EGD) History of open reduction and internal fixation (ORIF) procedure History of colonoscopy H/O dilation and curettage Hx laparoscopic cholecystectomy Gastric bypass status for obesity (~1999) History of Problems with Anesthesia: No Social History Social History Household Members: Spouse Alcohol intake: current Alcohol intake frequency: does not drink Comment: RIGHT KNEE CONTUSION Patient Tobacco Use Status: Former Tobacco user Tobacco use type: Cigarette Second Hand Smoke Exposure: No Use of substances other than those prescribed or required for medical reasons: No Are you DNR?: No Advance Directives: No Advance Directives Information Provided: Yes Meds Allergies Allergy/AdvReac Type Severity Reaction Status Date / Time nitrofurantoin Allergy Unknown respiratory Verified 02/20/23 12:51 [From MACROBID] symptoms NSAIDS (Non-Steroidal AdvReac Mild Stomach Verified 02/20/23 12:51 Anti-Inflamma issues Adhesive Tape Allergy Intermediate Hives Uncoded 02/20/23 12:51 SEASONAL ALLERGIES Allergy Intermediate respiratory Uncoded 02/20/23 12:51 symptoms Home Medications Medication Instructions Recorded Confirmed Last Taken Type aripiprazole 10 mg tablet 5 mg PO DAILY 08/17/20 02/15/23 Unknown History clonazepam 1 mg tablet 1 tab PO BID 08/17/20 02/15/23 Unknown History fluticasone 250 mcg-salmeterol 50 2 inh inhalation BID 08/17/20 02/15/23 Unknown History mcg/dose blistr powdr for inhalation (Marivel Dorantes) nystatin 100,000 unit/gram topical topical 12/13/20 Unknown History powder albuterol sulfate 90 mcg/actuation 2 puff inhalation Q4-6H PRN 04/19/22 02/15/23 04/26/22 05:00 History aerosol inhaler (ProAir HFA) Wheezing gabapentin 300 mg capsule 1 cap PO TID 04/19/22 02/15/23 Unknown History ipratropium 0.5 mg-albuterol 3 mg 3 ml inhalation Q4-6H PRN Wheezing 04/19/22 02/15/23 Unknown History (2.5 mg base)/3 mL nebulization soln loperamide 2 mg capsule 1 cap PO DAILY PRN Loose Stool 04/19/22 02/15/23 Unknown History nkkdoqtoix-doqrkadcxoijf-qqxddlqi 2 cap PO BID 05/28/22 02/15/23 Unknown History 50 mg-300 mg-40 mg capsule lamotrigine 25 mg tablet 25 mg PO 05/28/22 Unknown History ondansetron 8 mg disintegrating 8 mg PO Q8H PRN Nausea And Vomiting 02/15/23 02/15/23 Unknown History tablet Exam Height,Weight and Vital Signs: Height 5 ft 2 in Weight 139.706 kg Last Vital Signs Temp 98.1 F 11/13/23 12:02 Pulse 75 11/13/23 12:02 Resp 16 11/13/23 12:02 BP 135/90 H 11/13/23 12:02 Pulse Ox 98 11/13/23 12:02 O2 Del Method Room Air 11/13/23 12:02 Pertinent Lab Results Pertinent Lab Results: Laboratory Tests 11/13/23 11:45 Urine Test NEGATIVE Airway Mallampati Class: II TM Dist: <=3cm Neck ROM: Full Loose/Missing/Broken Teeth: No Heart: ok Lungs: ok Assessment and Plan Assessment Anesthesia Assessment: Anesthesia Plan Discussed and Chart Reviewed Final Anesthetic Review Family History of Problems with Anesthesia: No History of Problems with Anesthesia: No NPO: Yes ASA Class: III Final Preanesthetic Review: No Changes in Pt Med Stat, Meds/Allgs Chart Reviewed, Consent Obtained/Reviewed and Anes Risks/Benef Reviewed Patient Risk: Intermediate Procedure Risk: Intermediate Anesthetic Plan Anesthetic Plan: Agree w/ Assess. and Plan and TIVA Disposition: Standard PACU
[2023-11-13] MEDS: Lactated Ringers 1,000 ML 80 ML IVCONT (12:16)
--- NOTE | 2023-11-13 12:31 | MHC.SHP ---
Pre-Procedural Eval Section A - 24 Hr Update-Section A only Date of Service: 11/13/23 Section B - Complete if H&P > 30 days Chief Complaint: Nausea with vomiting, unspecified Relevant Family History (Specify if Yes): No Relevant Social History: None Present Medications: see Short Stay Collaborative assessment Medical History: Significant History (Asthma Encounter for insertion of mirena IUD DARRIUS on CPAP Urinary bladder disorder Hiatal hernia with GERD Rectovaginal fistula Contusion of right knee Gastritis Vomiting Heart murmur Bipolar depression Moderate asthma) History of Previous Operations: Relevant previous surgery/procedure and date(s) (H/O hernia repair History of esophagogastroduodenoscopy (EGD) History of open reduction and internal fixation (ORIF) procedure History of colonoscopy H/O dilation and curettage Hx laparoscopic cholecystectomy Gastric bypass status for obesity (~1999)) Allergies: Allergies Allergy/AdvReac Type Severity Reaction Status Date / Time nitrofurantoin Allergy Unknown respiratory Verified 02/20/23 12:51 [From MACROBID] symptoms NSAIDS (Non-Steroidal AdvReac Mild Stomach Verified 02/20/23 12:51 Anti-Inflamma issues Adhesive Tape Allergy Intermediate Hives Uncoded 02/20/23 12:51 SEASONAL ALLERGIES Allergy Intermediate respiratory Uncoded 02/20/23 12:51 symptoms Review of Systems Sugical H&P ROS: Negative: Constitution, Cardiovascular, Respiratory, Neurological, Psychiatric, Hem-Onc, Allergic/Immunologic, Gastrointestinal, Genitourinary, Musculoskeletal, Integumentary, Endocrine and Eyes/Ears/Nose/Throat Exam Surgical H&P Exam: Normal: HEENT, Normal: Heart, Normal: Lungs, Normal: Extremities, Normal: Abdomen, Normal: Skin and Normal: Neurological Plan Diagnosis/Plan: Unchanged I have reviewed the history and physical and performed a pertinent physical examination on my patient. No changes have occurred unless specified. EGD for evaluation of nausea, hx of bariatric surgeries. Time Spent With Patient Time: Total time managing care of this patient today ____ minutes.
--- NOTE | 2023-11-13 12:37 | W.PM.OPN ---
Operative Note Operative Note Date of Service: 11/13/23 Narrative: Procedure Description: EGD Indication: nausea, hx of bariatric surgeries and gastric bypass. Anesthesia: MAC FLEXIBLE TRANSORAL UPPER GASTROINTESTINAL ENDOSCOPY UPPER ENDOSCOPY Consent: Indications for the procedure and potential complications of bleeding, perforation, reaction to medications and missed diagnosis were discussed with the patient and informed consent was obtained. Instrument: Olympus GIF H 190 J mid size upper endoscope Monitoring: Vital signs and clinical assessment, continuous EKG monitoring, Pulse oximetry, Carbon Dioxide monitoring and blood pressure monitoring were done throughout the procedure. Procedure: The patient was placed in the left lateral decubitis position and pre-procedure medications were administered and a bite block was placed. The endoscope was inserted into the mouth and advanced under direct vision to the jejunum. A careful inspection was made as the upper endoscope was withdrawn including a retroflexed examination of the proximal stomach; Findings and interventions are described below. Findings: Larynx:normal Esophagus: GE junction at 36 cm, diaphragm hiatus at 36 cm, erosive esophagitis LA grade A noted with patulous GEJ, bx taken from GEJ, and distal, proximal esophagus Stomach pouch: granular appearance, pouch seemed pretty long . Biopsies were obtained. Grade 3 flap valve on retroflexed examination of the cardia. Lumpy Granulation tissue around the gastro jejunal junction, bx taken -mild erythema noted --also there was an angulation at the anastomosis from the pouch to the jejunum. Jejunum: Normal -bx taken Intervention: Biopsies as noted above, Impression/Findings: erosive esophagitis patulous GEJ PLAN: check compliance with PPI GERD precautions
[2023-11-13 12:54] VITALS: BP 119/62; PULSE 87; RESP 18; TEMP 36.2; O2SAT 100
[2023-11-13 13:09] VITALS: BP 127/81; PULSE 70; RESP 15; TEMP 36.1; O2SAT 98
== END 2023-11-13 13:50 | disposition home or self-care (01) ==
PROVIDERS: Anesthesiology; PCP Internal Medicine; Visit Provider Internal Medicine Gastroenterology
PROC: 0DJ08ZZ Inspection of Upper Intestinal Tract, Via Natural or Artificial Opening Endoscopic (ICD-10-PCS; CPT 43235; principal; 2023-11-13 15:10)
DX: R11.2 Nausea with vomiting, unspecified (principal); K20.80 Other esophagitis without bleeding; K28.9 Gastrojejunal ulcer, unspecified as acute or chronic, without hemorrhage or perforation; K22.89 Other specified disease of esophagus; K44.9 Diaphragmatic hernia without obstruction or gangrene; G47.33 Obstructive sleep apnea (adult) (pediatric); J45.909 Unspecified asthma, uncomplicated; E03.9 Hypothyroidism, unspecified; F31.9 Bipolar disorder, unspecified; Z79.899 Other long term (current) drug therapy; Z98.84 Bariatric surgery status; Z99.89 Dependence on other enabling machines and devices; L23.1 Allergic contact dermatitis due to adhesives; Z88.8 Allergy status to other drugs, medicaments and biological substances; Z98.890 Other specified postprocedural states
CPT/HCPCS: 43239; 81025; 88305; 88313; 88342; J2704

== ENCOUNTER → 2023-11-13 10:42 | Outpatient (BNV) | payer OTHER, SELFPAY | PROVIDERS: PCP Internal Medicine; Visit Provider Internal Medicine Gastroenterology | DX: R11.0 Nausea (principal); Z98.84 Bariatric surgery status; K20.90 Esophagitis, unspecified without bleeding; K22.89 Other specified disease of esophagus | CPT/HCPCS: 43239 ==

== ENCOUNTER → 2023-11-18 08:40 | Outpatient (BNVA) | payer OTHER, SELFPAY | PROVIDERS: PCP Internal Medicine; Visit Provider Internal Medicine | DX: Z13.89 Encounter for screening for other disorder (principal) | CPT/HCPCS: 99213 ==

== ENCOUNTER → 2023-12-02 10:30 | Outpatient (BNVA) | payer OTHER, SELFPAY | PROVIDERS: PCP Internal Medicine; Visit Provider Internal Medicine | DX: Z13.89 Encounter for screening for other disorder (principal) | CPT/HCPCS: 99213 ==

== ENCOUNTER → 2023-12-23 10:30 | Outpatient (BNV) | payer OTHER, SELFPAY | PROVIDERS: Visit Provider Psychiatry & Neurology Psychiatry | DX: F31.30 Bipolar disorder, current episode depressed, mild or moderate severity, unspecified (principal); F41.3 Other mixed anxiety disorders | CPT/HCPCS: 90792; 99211; 99213; 99499 ==

== ENCOUNTER 2024-01-02 10:00 | Outpatient (RCR) | payer OTHER, SELFPAY ==
[2023-12-13 13:05] VITALS: BP 140/94; PULSE 78; TEMP 36.6
[2023-12-13 13:07] VITALS: BMI 60.9
--- NOTE | 2023-12-13 15:27 | PC.ADMIT ---
Patient is a 48 year old female who was advised by her therapist to attend PHP d/t increase in anxiety and depression sxs secondary to medical issues. Patient struggling with nausea and vomiting from unknown cause that comes on all of a sudden. This causes much distress and increase in anxiety which in turn causes depression. She has an appointment with [facility] on December 25, 2023 for medical testing. 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 She reports struggling with anxiety symptoms including chest discomfort, shaking, involuntary body movements. Depressive symptoms include crying and rumination over medical issues and worrying if she is going to get better. She is currently on medical leave from work. Patient reports having a dx of Bipolar d/o. She denied any use of substances. Medications reconciled with patient and patient's pharmacies. She reports she recently changed pharmacies. She reports taking medications as prescribed. Lisa is alert and oriented x4. She is calm and cooperative. She presented with depressed mood and anxious affect. Denied SI. Reports chronic pain in bilateral feet of unknown ideology and takes Percocet intermittently PRN for pain.
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
--- NOTE | 2023-12-19 15:26 | HO.PHP ---
Client's case has been opened and reviewed in treatment team.
--- NOTE | 2023-12-20 13:50 | HO.PHP ---
PHP staff member met with Lisa after group three due to her becoming emotional and not answering the risk assessment questions. Lisa disclosed that today is a challenging day and that she would like to go home. [facility] sa[facility] member encouraged her to stay and noted that she is in the right place to work through these challenging moment. PHP staff member provided space to allow Lisa to further process her thoughts and feelings. Lisa talked about her mothers estate and the feelings it is creating for her due to having to confront her siblings. PHP staff member suggested that she sets clear boundaries with her siblings and to utilize her coping skills if she is struggling with the interaction. Lisa was in agreement. Lisa was able to regulate. PHP staff member explored safety, in which Lisa disclosed no safety concerns or SI, plan or intent. Lisa expressed that she is going to try to stay for the remainder of the last group. PHP staff member was receptive.
--- NOTE | 2023-12-20 23:32 | P.PNPSP_ITS ---
Subjective Subjective Date of Service: 12/20/23 Reason For Visit: anxiety,bipolar Interim History: I've been up and down, up and down . Been a rough week , high anxiety persisted although did notice started feeling better today. Anxiety often depends on the mood. Denies any hopelessness or SI, moreso feelings of helplessness and just feeling poor stress tolerance. Easily labile, tearful. Is open to increasing Lamcital from 225 mg/d to 300 mg/d (as split dose 150 mg BID). Has continued at only 25 mg of pregabalin, is eager to titrate and denies any adverse effects. Takes clonazepam on daily basis. Is willing to hold off an hour or 2, as we try increasing dose of pregabalin, and only taking clonazepam if still needed after starting AM and afternoon dosing of pregabalin at 25-50 mg as tolerated. Medication Compliance: Yes Side effects from medications: No Attending Groups: Yes Review of Systems Acute medical concerns: No Mental Status Exam Mental Status Exam Narrative: Alert, oriented, in no acute distress. Calm, cooperative, engaged. No psychomotor agitation or neurovegetative retardation. Eye contact maintained. Mood anxious, affect variable, mood congruent. Speech normal. Thought process linear, coherent. Thought content related to stressors, denies any helplessness, hopelessness or SI.? No aggressive ideation or HI. No paranoia or delusional content elicited. No evidence of psychosis. Insight and judgment fair but adequate. Diagnostics Vital Signs (24Hr): BMI result Body Mass Index 60.9 Assessment & Plan Assessment & Plan (1) Bipolar affective, depress, unspec: Status: Acute Code(s): F31.30 - Bipolar disorder, current episode depressed, mild or moderate severity, unspecified (2) Other mixed anxiety disorders: Status: Acute Code(s): F41.3 - Other mixed anxiety disorders Plan continue to titrate Lyrica toward 25-50 mg BID-TID increase Lamictal to 300 mg/d (split 150 BID) continue regular medications Patient educated on: diagnosis and medication risk/benefits Informed Consent: understands Reason for contiued partial hosp. stay Substantial Risk for: inability to function and med/psych decompensation Certification I certify that partial hospital treatment is medically necessary due to the symptoms and problems resulting from the patient's mental illness and the failure to treat the patient at the partial hospital level of care would likely result in the patient requiring inpatient psychiatric care which could not be prevented at a less intensive level of care. Total time managing care of this patient today __30__ minutes. Discharge Plan Discharge Attending provider: Ioana Contreras Medications: New pregabalin 25 mg capsule 25 mg PO BID Qty: 30 0RF pregabalin 50 mg capsule 50 mg PO TID Qty: 30 0RF lamotrigine 100 mg tablet 150 mg PO BID Qty: 45 0RF No Action trimethobenzamide 300 mg capsule 300 mg PO Q6H PRN (Reason: nausea and vomiting) Qty: 30 1RF scopolamine base 1 mg over 3 days patch 3 day 1 patch transdermal Q3D PRN (Reason: nausea and vomiting) Qty: 24 0RF ondansetron 8 mg tablet,disintegrating 8 mg PO Q8H PRN (Reason: nausea and vomiting) Qty: 60 0RF clonazepam 1 mg tablet 1 tab PO BID PRN (Reason: Anxiety) sucralfate [Carafate] 1 gram tablet 1 g PO QID 30 Days Qty: 120 3RF esomeprazole magnesium 40 mg capsule,delayed release(DR/EC) 40 mg PO DAILY Qty: 90 1RF Rx Instructions: open capsule and mix contents with apple sauce trazodone 50 mg tablet 50 mg PO BEDTIME Patient Comments: Patient reports she takes PRN. oxycodone-acetaminophen 5-325 mg tablet 1 - 2 tab PO BID PRN (Reason: pain) sertraline 50 mg Tablet 50 mg PO DAILY lamotrigine 100 mg tablet 100 mg PO BID aripiprazole 20 mg tablet 20 mg PO DAILY lamotrigine 25 mg tablet 125 mg PO BEDTIME Rx Instructions: Take with 100 mg tab of Lamotrigine at bedtime. Stand Alone Forms: Patient Portal Discharge page Print Language: Kinyarw[place] [facility] Telehealth Telehealth method: voice only
--- NOTE | 2023-12-24 09:58 | HO.PHP ---
Lisa is not scheduled today due to have a doctor's appointment. Lisa informed staff of this when she received the appointment and again yesterday to remind the team. Lisa followed PHP protocols and will be in program tomorrow.
--- NOTE | 2023-12-24 21:54 | PM.EVENT ---
Event Note Date of Service: 12/24/23 Event Note: Patient was scheduled to meet with provider today but did not end up attending program today. Time Spent With Patient Time: Total time managing care of this patient today ____ minutes.
--- NOTE | 2023-12-27 21:57 | P.PNPSP_ITS ---
Subjective Subjective Date of Service: 12/27/23 Reason For Visit: anxiety,bipolar Interim History: Good I think Patient seen for follow-up today. Patient has been actively follow-uping on GI issues, nausea, related to working diagnosis of gastroparesis. Yesterday she was scheduled for scintigraphy test, but was unable to keep down food/radioactive compoound needed to conduct the test. She will need to return at a later date and try again. Reports her mood as still a little manic saying she notices some fast ta'louann and moments of heightened energy.. which isn't a bad thing adding that it is better than having too little energy and adds that overall her mood is no longer bouncing around. Sleep has been variable but okay. Endorses some passive SI as in if God didnt want me to wake up I guess there's nothing I can do about that, but there's nothing I personally would do to cause harm to myself . Denies any active SI or thoughts of giving up saying on life. She states I want to feel better and says she is following up on all the testing and recommendations so she can get her medical problems fixed. She has tolerated the increase of Lamictal to 300 mg, denies any adverse effects. Doing well with increase in pregabalin. She thinks it has been helping with anxiety, and is hoping it will be helpful with pain management. Has not found it to be sedating and is open to continuing titration. Medication Compliance: Yes Side effects from medications: No Attending Groups: Yes Review of Systems Acute medical concerns: No Mental Status Exam Mental Status Exam Narrative: Alert, oriented, in no acute distress. Calm, cooperative, engaged. No psycho motor agitation or neurovegetative retardation. Eye contact maintained. Mood anxious, improving, affect variable, brighter, less anxious. Speech normal. Thought process linear, coherent. Thought content related to stressors, denies any helplessness, hopelessness or SI.? No aggressive ideation or HI. No paranoia or delusional content elicited. No evidence of psychosis. Insight and judgment fair but adequate. Diagnostics Vital Signs (24Hr): BMI result Body Mass Index 60.9 Assessment & Plan Assessment & Plan (1) Bipolar affective, depress, unspec: Status: Acute Code(s): F31.30 - Bipolar disorder, current episode depressed, mild or moderate severity, unspecified (2) Other mixed anxiety disorders: Status: Acute Code(s): F41.3 - Other mixed anxiety disorders Plan increase Lyrica from 50 mg TID, to 50/75/75 (and by Saturday to either 50/75/100 or preferably 75 TID if tolerated continue Lamictal 300 mg/d (150 mg BID) for another week, then increase to 400 mg/d (200 mg BID) next Th continue regular medications Patient educated on: diagnosis and medication risk/benefits Reason for contiued partial hosp. stay Substantial Risk for: inability to function and med/psych decompensation Certification I certify that partial hospital treatment is medically necessary due to the symptoms and problems resulting from the patient's mental illness and the failure to treat the patient at the partial hospital level of care would likely result in the patient requiring inpatient psychiatric care which could not be prevented at a less intensive level of care. Total time managing care of this patient today __30__ minutes. Discharge Plan Discharge Attending provider: Ioana Contreras Medications: New pregabalin 25 mg capsule 25 mg PO BID Qty: 30 0RF pregabalin 50 mg capsule 50 mg PO TID Qty: 30 0RF lamotrigine 100 mg tablet 150 mg PO BID Qty: 45 0RF Continued trimethobenzamide 300 mg capsule 300 mg PO Q6H PRN (Reason: nausea and vomiting) Qty: 30 1RF scopolamine base 1 mg over 3 days patch 3 day 1 patch transdermal Q3D PRN (Reason: nausea and vomiting) Qty: 24 0RF ondansetron 8 mg tablet,disintegrating 8 mg PO Q8H PRN (Reason: nausea and vomiting) Qty: 60 0RF clonazepam 1 mg tablet 1 tab PO BID PRN (Reason: Anxiety) sucralfate [Carafate] 1 gram tablet 1 g PO QID 30 Days Qty: 120 3RF esomeprazole magnesium 40 mg capsule,delayed release(DR/EC) 40 mg PO DAILY Qty: 90 1RF Rx Instructions: open capsule and mix contents with apple sauce trazodone 50 mg tablet 50 mg PO BEDTIME Patient Comments: Patient reports she takes PRN. sertraline 50 mg Tablet 50 mg PO DAILY aripiprazole 20 mg tablet 20 mg PO DAILY Discontinued lamotrigine 100 mg tablet 100 mg PO BID lamotrigine 25 mg tablet 125 mg PO BEDTIME Rx Instructions: Take with 100 mg tab of Lamotrigine at bedtime. No Action oxycodone-acetaminophen 5-325 mg tablet 1 - 2 tab PO BID PRN (Reason: pain) Stand Alone Forms: Patient Portal Discharge page Print Language: Frisian
--- NOTE | 2023-12-30 13:59 | PC.NURSE ---
Lisa participated in group discussion about social supports and connecting with the community. Discussion and information provided on local resources for mental health in the area such as [employer]. She participated in reading literature provided to group but did not share any thoughts on the subject.
--- NOTE | 2024-01-02 21:56 | P.PNPSP_ITS ---
Subjective Subjective Date of Service: 01/02/24 Reason For Visit: anxiety,bipolar Interim History: Patient seen for follow-up, anticipating discharge at the end of program today.? It was awesome... been learning some coping skills Patient reports feeling ready for discharge. They report Lyrica has been working and is surprised that it has been so quickly helpful with anxiety. She is currently at 75 mg TID. She does not find it sedating in the least and is agreeable to titrating the dose to 100 mg TID and says there is some signs it may be also helping with mitigating pain, I'm noticing my pain is better . Currently anxiety severity is at a 4-5 out of 10, which is much better than on admission, when cognitive anxiety was at a 10+ and body anxiety and panic symptoms were at a 20 out of 10. Reports no acute issues or concerns. Medication compliant, medications well-to lerated. Denies any adverse effects.? Mood is stable. She reports mood has improved from a 1/10 to a 7/10.? She denies any hopelessness or SI. Denies thoughts of harming self or others at this time. Denies any aggressive ideation or HI. Denies any paranoia or AH or VH. Sleep, appetite, energy stable. Her next provider appointment is on 01/07. Mental Status Exam Mental Status Exam Narrative: Alert, oriented, in no acute distress. Calm, cooperative. Mood stable, affect appropriate. Speech normal. Thought process linear, coherent, more goal- directed. Thought content related to stressors, future-oriented, denies any helplessness, hopelessness or SI.? No aggressive ideation or HI. No paranoia or delusional content elicited. No evidence of psychosis. Insight and judgment fair-good. Patient Appearance: Disheveled Diagnostics Vital Signs (24Hr): BMI result Body Mass Index 60.9 Assessment & Plan Assessment & Plan (1) Bipolar affective, depress, unspec: Status: Acute Code(s): F31.30 - Bipolar disorder, current episode depressed, mild or moderate severity, unspecified (2) Other mixed anxiety disorders: Status: Acute Code(s): F41.3 - Other mixed anxiety disorders Plan Discharge from [facility] Return to work letter was left with Adeline to send to fax to number provided by patient, and scan to chart continue Lamictal 200 mg BID continue to titrate Lyrica to 100 mg TID as tolerated continue other regular medications will defer further medication management to outpatient provider Refills sent to pharmacy Patient educated on: diagnosis and medication risk/benefits Informed Consent: understands Reason for contiued partial hosp. stay Substantial Risk for: stable for discharge Certification I certify that partial hospital treatment is medically necessary due to the symptoms and problems resulting from the patient's mental illness and the failure to treat the patient at the partial hospital level of care would likely result in the patient requiring inpatient psychiatric care which could not be prevented at a less intensive level of care. Total time managing care of this patient today _30___ minutes. Discharge Plan Discharge Attending provider: Ioana Contreras Medications: New lamotrigine 200 mg tablet 200 mg PO BID 30 Days Qty: 60 0RF pregabalin 100 mg capsule 100 mg PO TID 15 Days Qty: 45 0RF Continued trimethobenzamide 300 mg capsule 300 mg PO Q6H PRN (Reason: nausea and vomiting) Qty: 30 1RF scopolamine base 1 mg over 3 days patch 3 day 1 patch transdermal Q3D PRN (Reason: nausea and vomiting) Qty: 24 0RF ondansetron 8 mg tablet,disintegrating 8 mg PO Q8H PRN (Reason: nausea and vomiting) Qty: 60 0RF clonazepam 1 mg tablet 1 tab PO BID PRN (Reason: Anxiety) sucralfate [Carafate] 1 gram tablet 1 g PO QID 30 Days Qty: 120 3RF esomeprazole magnesium 40 mg capsule,delayed release(DR/EC) 40 mg PO DAILY Qty: 90 1RF Rx Instructions: open capsule and mix contents with apple sauce trazodone 50 mg tablet 50 mg PO BEDTIME Patient Comments: Patient reports she takes PRN. sertraline 50 mg Tablet 50 mg PO DAILY aripiprazole 20 mg tablet 20 mg PO DAILY Discontinued lamotrigine 100 mg tablet 100 mg PO BID lamotrigine 25 mg tablet 125 mg PO BEDTIME Rx Instructions: Take with 100 mg tab of Lamotrigine at bedtime. No Action oxycodone-acetaminophen 5-325 mg tablet 1 - 2 tab PO BID PRN (Reason: pain) Stand Alone Forms: Patient Portal Discharge page Patient Education: Pregabalin (By mouth), Bipolar Disorder (DC) Print Language: Icelandic
== END 2024-01-02 23:59 | disposition home or self-care (01) ==
LOC: HO.PHPA 10:00
PROVIDERS: Visit Provider Psychiatry & Neurology Psychiatry
DX: F31.30 Bipolar disorder, current episode depressed, mild or moderate severity, unspecified (principal); F41.3 Other mixed anxiety disorders; Z79.899 Other long term (current) drug therapy
CPT/HCPCS: 90791; 90853

== ENCOUNTER → 2024-03-02 09:26 | Outpatient (BNVA) | payer OTHER, SELFPAY | PROVIDERS: Visit Provider Internal Medicine ==

== ENCOUNTER 2024-04-14 10:36 | Day surgery (SDC) | payer OTHER, SELFPAY ==
--- NOTE | 2024-04-13 13:14 | HO.ANESPROP2 ---
Documented by User: Candi Fontana NP 04/13/24 13:14 HPI - Anesthesia Eval Consult details Narrative: 48yo F for Colonoscopy s/p EGD 11/2023 with [facility] PMFSH Active Problems Active Problems: All Active Problems Other mixed anxiety disorders (Acute) Bipolar affective, depress, unspec (Acute) Nausea (Acute) (Acute) Colovesical fistula (Acute) Colovaginal fistula (Acute) RUQ pain (Acute) Diarrhea (Acute) LUQ pain (Acute) Past Medical History Medical History Urinary retention Obesity Recurrent UTI DARRIUS (obstructive sleep apnea) Neuropathy Hyperplastic adenomatous polyp of stomach Erosive esophagitis Chronic foot pain Chondromalacia patellae Cervical radiculopathy GERD (gastroesophageal reflux disease) Nausea & vomiting Skin ulcer of abdomen Asthma Encounter for insertion of mirena IUD DARRIUS on CPAP Urinary bladder disorder Hiatal hernia with GERD Rectovaginal fistula Contusion of right knee Gastritis Vomiting Heart murmur Bipolar depression Moderate asthma Family History Family History Father Hx of type 1 diabetes mellitus Mother Hx of colon cancer, stage IV Family history of problems with anesthesia: No Surgical History Surgical History H/O eye surgery S/P implantation of urinary electronic stimulator device H/O hernia repair History of esophagogastroduodenoscopy (EGD) History of open reduction and internal fixation (ORIF) procedure History of colonoscopy H/O dilation and curettage Hx laparoscopic cholecystectomy Gastric bypass status for obesity (~1999) History of Problems with Anesthesia: No Social History Social History Household Members: Spouse Alcohol intake: current Alcohol intake frequency: does not drink Comment: RIGHT KNEE CONTUSION Patient Tobacco Use Status: Former Tobacco user Tobacco use type: Cigarette Second Hand Smoke Exposure: No Use of substances other than those prescribed or required for medical reasons: No Are you DNR?: No Advance Directives: No Advance Directives Information Provided: Yes Meds Allergies Allergy/AdvReac Type Severity Reaction Status Date / Time nitrofurantoin Allergy Unknown respiratory Verified 04/14/24 11:24 [From MACROBID] symptoms NSAIDS (Non-Steroidal AdvReac Mild Stomach Verified 04/14/24 11:24 Anti-Inflamma issues Adhesive Tape Allergy Intermediate Hives Uncoded 02/20/23 12:51 SEASONAL ALLERGIES Allergy Intermediate respiratory Uncoded 02/20/23 12:51 symptoms Home Medications ?Medication ?Instructions ?Recorded ?Confirmed ?Last Taken ?Type clonazepam 1 mg tablet 1 tab PO BID PRN Anxiety 08/17/20 04/14/24 12/13/23 06:30 History aripiprazole 20 mg tablet 20 mg PO DAILY 12/13/23 04/14/24 12/13/23 06:30 History oxycodone-acetaminophen 5 mg-325 1 - 2 tab PO BID PRN pain 12/13/23 04/14/24 12/12/23 23:00 History mg tablet sertraline 50 mg tablet 50 mg PO DAILY 12/13/23 04/14/24 12/13/23 06:30 History trazodone 50 mg tablet 50 mg PO BEDTIME insomnia 12/13/23 04/14/24 Unknown History Assessment and Plan Assessment Anesthesia Assessment: Chart Reviewed Final Anesthetic Review Family History of Problems with Anesthesia: No History of Problems with Anesthesia: No Documented by User: Jazmyn Carlton MD 04/14/24 13:36 PMFSH Past Medical History Medical History Urinary retention Obesity Recurrent UTI DARRIUS (obstructive sleep apnea) Neuropathy Hyperplastic adenomatous polyp of stomach Erosive esophagitis Chronic foot pain Chondromalacia patellae Cervical radiculopathy GERD (gastroesophageal reflux disease) Nausea & vomiting Skin ulcer of abdomen Asthma Encounter for insertion of mirena IUD DARRIUS on CPAP Urinary bladder disorder Hiatal hernia with GERD Rectovaginal fistula Contusion of right knee Gastritis Vomiting Heart murmur Bipolar depression Moderate asthma Family History Family History Father Hx of type 1 diabetes mellitus Mother Hx of colon cancer, stage IV Surgical History Surgical History H/O eye surgery S/P implantation of urinary electronic stimulator device H/O hernia repair History of esophagogastroduodenoscopy (EGD) History of open reduction and internal fixation (ORIF) procedure History of colonoscopy H/O dilation and curettage Hx laparoscopic cholecystectomy Gastric bypass status for obesity (~1999) Social History Social History Household Members: Spouse Alcohol intake: current Alcohol intake frequency: does not drink Comment: RIGHT KNEE CONTUSION Patient Tobacco Use Status: Former Tobacco user Tobacco use type: Cigarette Second Hand Smoke Exposure: No Use of substances other than those prescribed or required for medical reasons: No Are you DNR?: No Advance Directives: No Advance Directives Information Provided: Yes Meds Allergies Allergy/AdvReac Type Severity Reaction Status Date / Time nitrofurantoin Allergy Unknown respiratory Verified 04/14/24 11:24 [From MACROBID] symptoms NSAIDS (Non-Steroidal AdvReac Mild Stomach Verified 04/14/24 11:24 Anti-Inflamma issues Adhesive Tape Allergy Intermediate Hives Uncoded 02/20/23 12:51 SEASONAL ALLERGIES Allergy Intermediate respiratory Uncoded 02/20/23 12:51 symptoms Home Medications ?Medication ?Instructions ?Recorded ?Confirmed ?Last Taken ?Type clonazepam 1 mg tablet 1 tab PO BID PRN Anxiety 08/17/20 04/14/24 12/13/23 06:30 History aripiprazole 20 mg tablet 20 mg PO DAILY 12/13/23 04/14/24 12/13/23 06:30 History oxycodone-acetaminophen 5 mg-325 1 - 2 tab PO BID PRN pain 12/13/23 04/14/24 12/12/23 23:00 History mg tablet sertraline 50 mg tablet 50 mg PO DAILY 12/13/23 04/14/24 12/13/23 06:30 History trazodone 50 mg tablet 50 mg PO BEDTIME insomnia 12/13/23 04/14/24 Unknown History Exam Airway Mallampati Class: III TM Dist: >3cm Neck ROM: Full Heart: rrr Lungs: cta Assessment and Plan Assessment Anesthesia Assessment: Anesthesia Plan Discussed Final Anesthetic Review NPO: Yes ASA Class: III (super morbid obesity) Final Preanesthetic Review: No Changes in Pt Med Stat, Meds/Allgs Chart Reviewed, Consent Obtained/Reviewed and Anes Risks/Benef Reviewed Patient Risk: Intermediate Procedure Risk: Low Anesthetic Plan Anesthetic Plan: MAC: Disposition: Standard PACU
[2024-04-14 11:26] VITALS: BMI 64.9
[2024-04-14 11:50] VITALS: BP 113/69; PULSE 72; RESP 16; TEMP 36.5; O2SAT 95
[2024-04-14 11:52] LABS: HCG Quantitative < 2 mIU/mL
[2024-04-14] MEDS: Lactated Ringers 1,000 ML 100 ML IVCONT (12:05)
--- NOTE | 2024-04-14 12:19 | MHC.SHP ---
Pre-Procedural Eval Section A - 24 Hr Update-Section A only Date of Service: 04/14/24 Section B - Complete if H&P > 30 days Chief Complaint: Change in bowel habit Details of Present Illness: FH of CRC Relevant Family History (Specify if Yes): Yes Relevant Social History: None Present Medications: see Short Stay Collaborative assessment Medical History: Significant History (Urinary retention Obesity Recurrent UTI DARRIUS (obstructive sleep apnea) Neuropathy Hyperplastic adenomatous polyp of stomach Erosive esophagitis Chronic foot pain Chondromalacia patellae Cervical radiculopathy GERD (gastroesophageal reflux disease) Nausea & vomiting Skin ulcer of abdomen Asthma Encoun) History of Previous Operations: Relevant previous surgery/procedure and date(s) (H/O eye surgery S/P implantation of urinary electronic stimulator device H/O hernia repair History of esophagogastroduodenoscopy (EGD) History of open reduction and internal fixation (ORIF) procedure History of colonoscopy H/O dilation and curettage Hx laparoscopic cholecystectomy Gastric bypass sta) Allergies: Allergies Allergy/AdvReac Type Severity Reaction Status Date / Time nitrofurantoin Allergy Unknown respiratory Verified 04/14/24 11:24 [From MACROBID] symptoms NSAIDS (Non-Steroidal AdvReac Mild Stomach Verified 04/14/24 11:24 Anti-Inflamma issues Adhesive Tape Allergy Intermediate Hives Uncoded 02/20/23 12:51 SEASONAL ALLERGIES Allergy Intermediate respiratory Uncoded 02/20/23 12:51 symptoms Review of Systems Sugical H&P ROS: Negative: Constitution, Cardiovascular, Respiratory, Neurological, Psychiatric, Hem-Onc, Allergic/Immunologic, Gastrointestinal, Genitourinary, Musculoskeletal, Integumentary, Endocrine and Eyes/Ears/Nose/Throat Exam Surgical H&P Exam: Normal: HEENT, Normal: Heart, Normal: Lungs, Normal: Extremities, Normal: Abdomen, Normal: Skin and Normal: Neurological Plan Diagnosis/Plan: Unchanged I have reviewed the history and physical and performed a pertinent physical examination on my patient. No changes have occurred unless specified. Time Spent With Patient Time: Total time managing care of this patient today ____ minutes.
--- NOTE | 2024-04-14 12:22 | HO.OPN-COLON ---
Colonoscopy Operative Note Operative Note Date of Service: 04/14/24 Narrative: Operative Information Procedure Description: Colonoscopy Indication: altered bowel habit and FH of CRC Anesthesia: MAC COLONOSCOPY Instrument: Olympus variable stiffness ADULT scope 190L Colonoscopy Monitoring: Vital signs and clinical assessment, continuous EKG monitoring, Pulse oximetry, Carbon Dioxide monitoring and blood pressure monitoring were done throughout the procedure. Colon withdrawal time was 10 minutes. Procedure: The patient was placed in the left lateral decubitis position and pre-procedure medications were administered. After a digital rectal examination of the ano-rectum, the video colonoscope was inserted into the rectum and advanced through the colon to the cecum/TI. The colonoscope was slowly withdrawn in a retrograde panoramic fashion and the colon mucosa was carefully examined including a retroflexed view of the rectum. Findings and interventions are described below. Procedure Difficulty: easy Findings: Terminal Ileum-normal, Cecum:normal Ascending Colon: normal Transverse Colon -normal Descending Colon:normal Sigmoid Colon: scattered small diverticula noted Rectum: Retroflexion with small internal hemorrhoids, grade I- 4-5 mm sessile polyp removed with cold forcepsw Anorectum - normal, seton noted Intervention: cold forceps Colon preparation: Callaway Bowel Preparation Scale Right colon; 2 Transverse colon: 2 Left colon; 2 (0 = Unprepared colon segment with mucosa not seen due to solid stool that cannot be cleared. 1 = Portion of mucosa of the colon segment seen, but other areas of the colon segment not well seen due to staining, residual stool and/or opaque liquid. 2 = Minor amount of residual staining, small fragments of stool and/or opaque liquid, but mucosa of colon segment seen well. 3 = Entire mucosa of colon segment seen well with no residual staining, small fragments of stool or opaque liquid) Impression and Post Procedure Diagnosis: diverticulosis colon polyps internal hemorrhoids Plan: High fiber diet leaflet Avoid straining at stool, epsom salts and sitz bath, anusol supps or cream Repeat Colonoscopy in 5 years due to FH of CRC or earlier if clinically indicated Above findings were reviewed with the patient and relevant handouts were provided if indicated.
[2024-04-14 12:53] VITALS: BP 107/67; PULSE 69; RESP 16; TEMP 36.3; O2SAT 98
[2024-04-14 13:08] VITALS: BP 114/70; PULSE 69; RESP 16; TEMP 36.3; O2SAT 97
== END 2024-04-14 14:02 | disposition home or self-care (01) ==
PROVIDERS: Anesthesiology; PCP Internal Medicine; Visit Provider Internal Medicine Gastroenterology
PROC: 0DJD8ZZ Inspection of Lower Intestinal Tract, Via Natural or Artificial Opening Endoscopic (ICD-10-PCS; CPT 45378; principal; 2024-04-14 15:00)
DX: R19.4 Change in bowel habit (principal); Z80.0 Family history of malignant neoplasm of digestive organs; K62.1 Rectal polyp; K57.30 Diverticulosis of large intestine without perforation or abscess without bleeding; K64.8 Other hemorrhoids; K64.0 First degree hemorrhoids; K28.9 Gastrojejunal ulcer, unspecified as acute or chronic, without hemorrhage or perforation; K21.9 Gastro-esophageal reflux disease without esophagitis; K20.80 Other esophagitis without bleeding; K31.7 Polyp of stomach and duodenum; G47.33 Obstructive sleep apnea (adult) (pediatric); J45.909 Unspecified asthma, uncomplicated; E03.9 Hypothyroidism, unspecified; N39.0 Urinary tract infection, site not specified; N32.1 Vesicointestinal fistula; G89.4 Chronic pain syndrome; M54.12 Radiculopathy, cervical region; Z97.8 Presence of other specified devices; G62.9 Polyneuropathy, unspecified; Z96.82 Presence of neurostimulator; E66.9 Obesity, unspecified; Z79.811 Long term (current) use of aromatase inhibitors; Z79.899 Other long term (current) drug therapy; Z99.89 Dependence on other enabling machines and devices; Z88.6 Allergy status to analgesic agent; L23.1 Allergic contact dermatitis due to adhesives; Z98.84 Bariatric surgery status; Z98.890 Other specified postprocedural states; Z87.891 Personal history of nicotine dependence
CPT/HCPCS: 45380; 36415; 84702; 88305; J2250; J2704

== ENCOUNTER → 2024-04-14 10:36 | Outpatient (BNV) | payer OTHER, SELFPAY | PROVIDERS: PCP Internal Medicine; Visit Provider Internal Medicine Gastroenterology | DX: R19.4 Change in bowel habit (principal); Z80.0 Family history of malignant neoplasm of digestive organs; K63.5 Polyp of colon; K57.30 Diverticulosis of large intestine without perforation or abscess without bleeding | CPT/HCPCS: 45380 ==

== ENCOUNTER 2024-07-28 07:59 | Outpatient (REF) | payer OTHER, SELFPAY ==
--- NOTE | ~2024-07-28 | XR_ITS ---
EXAMINATION: XR KNEE, LEFT CLINICAL INFORMATION: M25.562 - Pain in left knee COMPARISON: None available. TECHNIQUE: 3 views of left knee FINDINGS: Medial compartment severe joint space narrowing marginal osteophytes indicative of severe osteoarthritis. Lateral compartment: Marginal osteophytes indicative of at least mild osteoarthritis. Patellofemoral compartment prominent marginal osteophytes indicative of at least mild to moderate osteoarthritis. No effusion. XR/XR knee LT 3V IMPRESSION: Tricompartmental osteoarthritis with degenerative changes most prominent and severe involving the medial compartment Electronically signed by: Ascencion Lui MD 08/02/2024 01:10 PM JOSEFA
--- NOTE | ~2024-07-28 | XR_ITS ---
EXAMINATION: XR KNEE, RIGHT CLINICAL INFORMATION: M25.561 - Pain in right knee COMPARISON: CT scan of the right knee 09/21/2020 TECHNIQUE: 3 views of the right knee FINDINGS: Medial compartment there is joint space narrowing marginal osteophytes indicative of to moderate osteoarthritis. Lateral compartment prominent marginal osteophytes without joint space narrowing indicative of at least mild to moderate osteoarthritis. Patellofemoral compartment marginal osteophytes without joint space narrowing indicative of at least mild to moderate osteoarthritis. Small joint effusion Surrounding bone and soft tissues unremarkable. XR/XR knee RT 3V IMPRESSION: Mild to moderate osteoarthritis of the right knee. No definite change compared with CT 2020 along for differences in imaging modalities Electronically signed by: Ascencion Lui MD 08/02/2024 01:09 PM JOSE[facility] BUS[facility]
== END 2024-07-28 08:00 | disposition home or self-care (01) ==
LOC: HO.HOSX 07:59
PROVIDERS: Visit Provider Orthopaedic Surgery
DX: M25.561 Pain in right knee (principal); M25.562 Pain in left knee
CPT/HCPCS: 73562

== ENCOUNTER 2024-07-28 12:35 | Outpatient (AMB) | payer OTHER, SELFPAY ==
--- NOTE | 2024-07-28 12:53 | MHC.OFFVIS ---
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 Patient reports that she has had ongoing pain in both of her knees for years now, she explains that the knee pain alternates between the left and right. Currently the right knee is worse than the left. Hx of cortisone injections with mild relief, but only for about 1 week. She has tried and failed bracing as well physical therapy. She takes Tylenol PRN pain, which offers mild temporary relief. She is unable to take Ibuprofen/NSAIDs due to hx of stomach ulcers. The patient has failed the last 3 months of conservative treatment which has consisted of topical creams, a home physical therapy program, and Tylenol. At this point her bilateral knee pains are interfering with her activities of daily living and her ability to sleep well through the night. Allergies nitrofurantoin [From MACROBID] Allergy (Unknown, Verified 04/14/24 11:24) respiratory symptoms NSAIDS (Non-Steroidal Anti-Inflamma Adverse Reaction (Mild, Verified 04/14/24 11:24) Stomach issues Adhesive Tape Allergy (Intermediate, Uncoded 02/20/23 12:51) Hives SEASONAL ALLERGIES Allergy (Intermediate, Uncoded 02/20/23 12:51) respiratory symptoms Medication List - Last Reconciled 07/28/24 by Bill Saunders MD aripiprazole 20 mg PO DAILY clonazepam 1 tab PO BID PRN diphenoxylate-atropine 2.5-0.025 mg (Lomotil) 1 tab PO BID PRN esomeprazole magnesium 40 mg PO DAILY lamotrigine 200 mg PO BID 30 days ondansetron 8 mg PO Q8H PRN oxycodone-acetaminophen 5-325 mg 1 - 2 tabs PO BID PRN pregabalin 100 mg PO TID 15 days scopolamine base 1 patch transdermal Q3D PRN sertraline 50 mg PO DAILY sucralfate (Carafate) 1 g PO QID 30 days trazodone 50 mg PO BEDTIME trimethobenzamide 300 mg PO Q6H PRN PFSH Medical History Urinary retention Obesity Recurrent UTI DARRIUS (obstructive sleep apnea) Neuropathy Hyperplastic adenomatous polyp of stomach Erosive esophagitis Chronic foot pain Chondromalacia patellae Cervical radiculopathy GERD (gastroesophageal reflux disease) Nausea & vomiting Skin ulcer of abdomen Asthma Encounter for insertion of mirena IUD DARRIUS on CPAP Urinary bladder disorder Hiatal hernia with GERD Rectovaginal fistula Contusion of right knee Gastritis Vomiting Heart murmur Bipolar depression Moderate asthma Surgical History H/O eye surgery S/P implantation of urinary electronic stimulator device H/O hernia repair History of esophagogastroduodenoscopy (EGD) History of open reduction and internal fixation (ORIF) procedure History of colonoscopy H/O dilation and curettage Hx laparoscopic cholecystectomy Gastric bypass status for obesity (~1999) Family History Father Hx of type 1 diabetes mellitus Mother Hx of colon cancer, stage IV Social History Household Members: Spouse Alcohol intake: current Alcohol intake frequency: does not drink Comment: RIGHT KNEE CONTUSION Patient Tobacco Use Status: Former Tobacco user Tobacco use type: Cigarette Second Hand Smoke Exposure: No Physical Exam Const Other: Well-nourished well-developed very friendly female awake alert and oriented x3 in no acute distress Extrem Other: Bilateral lower extremity examination shows good capillary refill, no skin lesions noted, normal sensation light touch Bilateral knee examination shows minimal effusions, palpable crepitus with range of motion, pain with range of motion, range of motion from -3 degrees to 115 degrees, no instability Results Reviewed Results Reviewed: X-rays of the patient's bilateral knee show moderate to severe joint space narrowing, subchondral sclerosis, no acute bony abnormalities Assessment & Plan Assessment & Plan (1) Osteoarthritis of left knee: Code(s): M17.12 - Unilateral primary osteoarthritis, left knee Category: Medical (2) Osteoarthritis of right knee: Code(s): M17.11 - Unilateral primary osteoarthritis, right knee Category: Medical Plan Ms. Foss presents with bilateral knee pains due to osteoarthritis. I had a lengthy discussion with the patient regarding the treatment options. The patient has failed the last 3 months of conservative treatments. She has had cortisone injections in the past which gave her minimal relief. Thus, I will see whether or not the patient's insurance company will cover a viscosupplementation injection for both of her knees. I will see her back once the injections are available. Feel free to call me at any time should questions regarding her orthopedic management arise. Thank you very much for asking me to see this very friendly patient. I spent 21 minutes in reviewing the patient's records and imaging studies, seeing the patient and documenting in the medical record. Orders: Orders XR knee RT 3V Today M25.561 - Pain in right knee XR knee LT 3V Today M25.562 - Pain in left knee Coding Level of Care Code New Pt Level 3 (43075) Complex EM visit Add On G2211 Diagnoses Osteoarthritis of left knee M17.12 Osteoarthritis of right knee M17.11
== END 2024-07-28 13:12 | disposition home or self-care (01) ==
PROVIDERS: PCP Internal Medicine; Visit Provider Orthopaedic Surgery
DX: M17.0 Bilateral primary osteoarthritis of knee (principal)
CPT/HCPCS: 99203

== ENCOUNTER 2025-01-07 07:11 | Emergency (ER) | payer OTHER, SELFPAY ==
--- NOTE | ~2025-01-07 | XR_ITS ---
EXAMINATION: XR LUMBOSACRAL SPINE CLINICAL INFORMATION: fall COMPARISON: None available. TECHNIQUE: AP and bilateral oblique views of the lumbar spine. The patient refused lateral projection or further imaging. FINDINGS: No scoliosis. Grossly normal lordosis on the oblique projections although without a lateral projection, comment cannot be made on sagittal alignment. No pars defects seen. Facets appear normally aligned. The disc spaces appear grossly maintained. No definite compression deformity or acute fractures seen given limitations. A right-sided spinal stimulator device is noted with lead extending into the left sacral region. There is an IUD present within the left para midline pelvis. The sacrum appears intact without definite sacral fracture. The SI joints appear grossly normal. Abundant soft tissues appear normal. XR/XR lumbar spine 4V min IMPRESSION: 1. Incomplete examination. Patient refused lateral projection and any further imaging. No acute bony abnormality identified. 2. Sacral stimulator device in place. Electronically signed by: David Cardenas MD 01/07/2025 09:04 AM EDT
--- NOTE | ~2025-01-07 | XR_ITS ---
EXAMINATION: XR SHOULDER, RIGHT CLINICAL INFORMATION: fall COMPARISON: None available. TECHNIQUE: AP external rotation, Grashey, scapular Y, and axillary views of the right shoulder. FINDINGS: Study mildly limited by habitus and positioning. Normal bone mineralization. No fracture, dislocation, or suspicious bone lesion. Normal alignment. The glenohumeral joint demonstrate mild degenerative arthritis. Normal alignment. The AC joint demonstrates moderate degenerative arthritis with both moderate superior surface and mild undersurface spurring. There is a neutral lateral acromion. No undersurface spurring. The subacromial space is preserved. Remainder of the soft tissue and bony structures appear normal. XR/XR shoulder RT min 2V IMPRESSION: No acute bony abnormalities of the right shoulder. Electronically signed by: David Cardenas MD 01/07/2025 09:00 AM EDT
--- NOTE | ~2025-01-07 | XR_ITS ---
EXAMINATION: XR KNEE 4 OR MORE VIEWS RIGHT HISTORY: fall COMPARISON: Comparison is made with the prior examination dated 07/28/2024. FINDINGS: Four views of the right knee are submitted. Osseous mineralization is normal. There is no fracture or dislocation. There is moderate tricompartmental osteoarthritis with joint space narrowing and osteophyte formation. The soft tissues are unremarkable. There is no joint effusion. XR/XR knee RT 4V IMPRESSION: Moderate tricompartmental osteoarthritis. Electronically signed by: Graham Welsh MD 01/07/2025 08:58 AM EDT
[2025-01-07 07:13] VITALS: BP 138/81; PULSE 72; RESP 20; TEMP 36.7; O2SAT 99; BMI 60.4
--- OUTSIDE RECORDS SUMMARY | 2025-01-07 07:40 | XMS_ITS | Continuity of Care Document ---
Author Organization [facility] Address [address] [place] [address]- Care Team Providers Care Edge Blacker Name Role Phone Caridad Louis MD Primary Care Physician Encounter [facility] [place] Date(s): 12/07/24 - 01/06/25 [facility] [address] [place], [place] [address] Encounter Type: Triage Allergies, Adverse Reactions, Alerts Substance Criticality Severity Reaction Reaction Severity Status Macrobid breathing difficulty,itching Active Adhesive Bandage rash Act nafisa Pollen Active NSAIDs SEVERE GASTRITIS Act nafisa Immunizations Given and Recorded Vaccine Date Status Refusal Reason influenza virus vaccine, inactivated 1 06/21/23 Gi teodora influenza virus vaccine, inactivated 2 06/04/20 Re corded influenza virus vaccine, inactivated 3 06/23/19 Gi teodora influenza virus vaccine, inactivated 4 05/21/18 Gi teodora influenza virus vaccine, inactivated 5 06/08/16 Re corded influenza virus vaccine, inactivated 06/05/16 Tanvir rded influenza virus vaccine, inactivated 05/28/14 Give n influenza virus vaccine, inactivated 6 05/17/12 Gi teodora influenza virus vaccine, inactivated 07/09/06 Give n pneumococcal 20-valent conjugate vaccine 12/20/22 Given tetanus/diphtheria/pertussis, acel(Tdap) 12/20/22 Given tetanus/diphtheria/pertussis, acel(Tdap) 11/26/11 Given SARS-CoV-2 (COVID-19) mRNA BNT-162b2 vac 06/24/21 Recorded SARS-CoV-2 (COVID-19) mRNA BNT-162b2 vac 09/20/20 Recorded SARS-CoV-2 (COVID-19) mRNA BNT-162b2 vac 08/30/20 Recorded Influenza Virus Vaccine (oldterm) 06/12/21 Recorde d Influenza Virus Vaccine (oldterm) 7 07/06/08 Given Influenza Virus Vaccine (oldterm) 8 06/20/07 Given pneumococcal 23-valent vaccine 9 07/16/17 Given Measles/Mumps/Rubella Virus Vaccine 06/30/14 Given Measles/Mumps/Rubella Virus Vaccine 04/26/14 Given hepatitis B adult vaccine 10 11/04/12 Given hepatitis B adult vaccine 11 05/08/12 Given hepatitis B adult vaccine 12 04/10/12 Given diphtheria-tetanus toxoids (DT) 05/16/00 Given 1Result Comment: [facility] [id number] 2Result Comment: GIVEN @ [facility] 3Result Comment: [facility]# [id number] pt. tolerated inj. without complications....[place] 4Result Comment: [05/21/2018] [facility]# [id number] pt. tolerated inj. 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# [id number] 10Admin Note: 3rd Injection 11Admin Note: 2 INJECTION 12Admin Note: Injection: 1 Medications acetaminophen-oxyCODONE 325 mg-5 mg oral tablet See Instructions, PRN, 1-2 tablet By Mouth TWICE DAILY NEEDED ok to pay out of pocket until PA is approved fill when due, # 28 tablet, Refills 0, Tot. Refills 0, Maintenance, as needed for pain, 01/06/25 9:27:00 AM EDT, Instructions Replace Required Details, Route to Pharmacy Electronically, [facility] #[id number] Tablet, Partial fill upon patient request if the prescription is for a schedule II opioid drug. fill when due; ok to pay out of pocket until PA is approved, fill when due, 157, cm, 12/04/24 15:00:00 EDT, Height, 162.5, kg, 12/04/24 15:00:00 EDT, Dry Weight Start Date: 01/06/25 Status: Ordered Quantity: 28.0 Unit: tablet Repeat number: 1 Albuterol (Eqv-ProAir HFA) 90 mcg/inh inhalation aerosol See Instructions, PLEASE SEE ATTACHED FOR DETAILED DIRECTIONS, # 8.5 each, 5 Refills, Maintenance, 09/04/22 6:53:00 AM EST, [id number], 25, PLEASE SEE ATTACHED FOR DETAILED DIRECTIONS, 157, cm, 08/16/22 13:37:00 EST, Height, 138.8, kg, 06/27/22 14:01:00 EDT, Dry Weight Start Date: 09/04/22 Status: Ordered Quantity: 8.5 Unit: each Repeat number: 1 albuterol-ipratropium 3 mg-0.5 mg/3 ml inhalation solution 3 mL, Inhalation, 4 times a day, PRN Wheezing/Shortness of Breath, # 180 mL, 11 Refills, Maintenance, 04/29/23 9:48:00 AM EDT, Solution, [id number], Asthma J 45.90, 3 mL Inhalation 4 times a day,x30 days,PRN:Wheezing/Shortness of Breath, 157, cm, 04/29/23 9:27:00 EDT, Height, 138.8, kg, 06/27/22 14:01:00 EDT, Dry Weight Start Date: 04/29/23 Stop Date: 04/23/24 Status: Ordered Quantity: 180.0 Unit: mL Repeat number: 12 ARIPiprazole 20 mg oral tablet TAKE 1 TABLET BY MOUTH EVERY DAY Start Date: 04/09/22 Status: Ordered Repeat number: 1 autoCPAP ([employer]) autoCPAP ([employer]), See Instructions, # 1 each, Refills 0, Tot. Refills 0, Maintenance, autoCPAP autoCPAP 11-15cm H2O with heated humidification, mask, tubing, filters, headgear, chin strap, and water chamber. Gregorio provider access to wireless compliance dataLength of need: Lifetime 99 months Dx G47.33, 08/01/22 2:15:00 PM EST, Supply Start Date: 08/01/22 Status: Ordered Quantity: 1.0 Unit: each Repeat number: 1 Indication: Obstructive sleep apnea (adult) (pediatric) clonazePAM 1 mg oral tablet 1 tablet = 1 mg, By Mouth, 2 times a day, PRN Anxiety, fill when due, # 28 tablet, 1 Refills, Maintenance, 12/01/24 4:30:00 PM EDT, Tablet, [facility] #[id number], 157, cm, 10/23/24 18:34:00 EST, Height, 161.2, kg, 10/23/24 11:54:00 EST, Dry Weight Start Date: 12/01/24 Stop Date: 12/29/24 Status: Ordered Quantity: 28.0 Unit: tablet Repeat number: 2 CPAP Equipment Maintenance, 10/14/19 3:16:00 PM EST, Compound Start Date: 10/14/19 Status: Ordered Repeat number: 1 [facility] ANTACID-ANTIGAS LIQUID GIVE 10 ML 4 TIMES A DAY NEEDED FOR INDIGESTION ADMINISTER BETWEEN MEALS AND AT BEDTIME Start Date: 12/20/22 Status: Ordered Repeat number: 1 esomeprazole 40 mg oral enteric coated capsule TAKE 1 CAPSULE BY MOUTH 2 TIMES A DAY OPEN CAPSULE AND MIX WITH APPLE SAUCE Start Date: 12/20/22 Status: Ordered Repeat number: 1 Juxta Fit Compression Wraps 20-30 mm/Hg Juxta Fit Compression Wraps 20-30 mm/Hg, See Instructions, # 2 each, Refills 0, Tot. Refills 0, Maintenance, Dx: Lymphedema, Venous insufficiency, 10/25/20 11:15:00 AM EST, Supply Start Date: 10/25/20 Status: Ordered Quantity: 2.0 Unit: each Repeat number: 1 LaMICtal 150 mg oral tablet 1 tablet = 150 mg, By Mouth, 2 times a day, # 60 tablet, 0 Refills, Maintenance, 12/24/23 1:05:00 PMEDT, Tablet, Partial fill upon patient request if the prescription is for a schedule II opioid drug. Start Date: 12/24/23 Status: Ordered Quantity: 60.0 Unit: tablet Repeat number: 1 loperamide 2 mg oral capsule 4 mg, 2, capsule, By Mouth, 2 times a day, for 30 days, take 1/2 hour before breakfast and at bed time, # 120 capsule, Refills 5, Tot. Refills 5, Acute 03/07/25 4:59:00 PM EDT, 09/08/24 4:59:00 PM EST, Route to Pharmacy Electronically, [facility] #[id number], Partial fill upon patient request if the prescription is for a schedule II opioid drug., 157, cm, 07/02/24 10:01:00 EDT, Height, 144, kg, 07/02/24 10:01:00 EDT, Dry Weight Start Date: 09/08/24 Stop Date: 03/07/25 Status: Ordered Quantity: 120.0 Unit: capsule Repeat number: 6 Mirena 52 mg intrauteral device 1 each = 52 mg, Once, 0 Refills, Maintenance, 02/21/17 3:23:25 PM EDT Start Date: 02/21/17 Status: Ordered Repeat number: 1 mirtazapine 15 mg oral tablet 0.5 tablet = 7.5 mg, By Mouth, Daily, # 15 tablet, 0 Refills, Maintenance, 10/23/24 11:56:00 AM EST,Tablet, Partial fill upon patient request if the prescription is for a schedule II opioid drug. Start Date: 10/23/24 Status: Ordered Quantity: 15.0 Unit: tablet Repeat number: 1 Naftin 2% topical gel 1 application, Topically, 2 times a day, # 45 Gm, 5 Refills, Maintenance, 09/23/24 2:53:00 PM EST, Gel, [facility] #[id number], Partial fill upon patient request if the prescription is for a schedule II opioid drug., 1 application Topically 2 times a day, 157, cm, 07/02/24 10:01:00 EDT, Height,144, kg, 07/02/24 10:01:00 EDT, Dry Weight Start Date: 09/23/24 Status: Ordered Quantity: 45.0 Unit: g Repeat number: 6 Nasonex 50 mcg/inh nasal spray 1 sprays, Nares, Both, Daily, # 17 Gm, 0 Refills, Maintenance, 10/02/21 12:53:00 PM EST, [place], [facility] #[id number], Partial fill upon patient request if the prescription is for a schedule II opioid drug., 1 sprays Nares, Both Daily, 157, cm, 06/27/21 13:05:00 EDT, Height, 146.6, kg, 05/29/21 10:56:00 EDT, Dry Weight Start Date: 10/02/21 Status: Ordered Quantity: 17.0 Unit: g Repeat number: 1 Nebulizer/Compressor See Instructions, # 1 each, Refills 11, Tot. Refills 11, Maintenance, E0570 Nebulizer A7003 Neb Disp Set A7014 Neb non-Disp Filter A7005 Neb Non-Disp set A7015 Aerosol Mask A7013 Neb Disp Filter length of need lifetime 99 months for home use, 10/10/22 5:08:00 PM EST, Supply Start Date: 10/10/22 Status: Ordered Quantity: 1.0 Unit: each Repeat number: 12 nystatin topical 749878 u/gm powder 1 application, Topically, 2 times a day, # 60 Gm, 5 Refills, Maintenance, 01/18/23 3:57:00 PM EDT, Powder, [facility] #[id number], Partial fill upon patient request if the prescription is for a schedule II opioid drug., 1 application Topically 2 times a day, 157, cm, 12/20/22 8:47:00 EDT, Height, 138.8, kg, 06/27/22 14:01:00 EDT, Dry Weight Start Date: 01/18/23 Status: Ordered Quantity: 60.0 Unit: g Repeat number: 6 ondansetron 8 mg oral tablet, disintegrating DISSOLVE 1 TABLET IN MOUTH EVERY 8 HOURS NEEDED FOR NAUSEA AND VOMITING Start Date: 12/24/23 Status: Ordered Repeat number: 1 pregabalin 100 mg oral capsule 1 capsule = 100 mg, By Mouth, 2 times a day, temporary rx until psychiatrist is back, # 180 capsule, 0 Refills, Maintenance, 10/23/24 11:55:00 AM EST, Capsule, Partial fill upon patient request if theprescription is for a schedule II opioid drug. Start Date: 10/23/24 Status: Ordered Quantity: 180.0 Unit: capsule Repeat number: 1 propranolol 10 mg oral tablet See Instructions, take 1 tablet By Mouth daily at supper, # 90 tablet, Refills 1, Tot. Refills 1, Maintenance, 10/23/24 12:01:00 PM EST, Instructions Replace Required Details, Route to Pharmacy Electronically, [facility] #[id number], Partial fill upon patient request if the prescription is for a schedule II opioid drug., 157, cm, 10/23/24 11:54:00 EST, Height, 161.2, kg, 10/23/24 11:54:00 EST, Dry Weight Start Date: 10/23/24 Status: Ordered Quantity: 90.0 Unit: tablet Repeat number: 2 scopolamine 1 mg/72 hr transdermal film, extended release 1 film, Topically, Every 72 hours, 0 Refills, Maintenance, 06/01/22 2:28:00 PM EDT, Partial fill upon patient request if the prescription is for a schedule II opioid drug. Start Date: 06/01/22 Status: Ordered Repeat number: 1 Senna 8.6 mg oral tablet 17.2 mg, 2, tablet, By Mouth, Daily at bedtime, PRN, # 100 tablet, Refills 0, Tot. Refills 0, Acute, for constipation, 01/30/25 12:32:00 PM EDT, 12/09/24 12:32:00 PM EDT, Route to Pharmacy Electronically, [facility] #[id number] Tablet, Partial fill upon patient request if the prescription is for a schedule II opioid drug., 157, cm, 12/04/24 15:00:00 EDT, Height, 162.5, kg, 12/04/24 15:00:00 EDT, Dry Weight Start Date: 12/09/24 Stop Date: 01/30/25 Status: Ordered Quantity: 100.0 Unit: tablet Repeat number: 1 sertraline 50 mg oral tablet TAKE 1 TABLET BY MOUTH EVERY DAY Start Date: 12/20/22 Status: Ordered Repeat number: 1 Spiriva Respimat 1.25 mcg/inh inhalation aerosol 2 puffs, Inhalation, Daily, # 1 each, 11 Refills, Maintenance, 02/04/23 10:33:00 AM EDT, Aerosol, [facility]acy #1130, asthma j45.9, 157, cm, 02/04/23 10:16:00 EDT, Height, 138.8, kg, 06/27/22 14:01:00 EDT, Dry Weight Start Date: 02/04/23 Stop Date: 01/30/24 Status: Ordered Quantity: 1.0 Unit: each Repeat number: 12 Symbicort 160mcg/4.5mcg Inhaler 2, puffs, Inhalation, 2 times a day, in the morning and the evening use with spacer chamber rinse mouth and throat after use, # 1 each, Refills 11, Tot. Refills 11, Maintenance, 02/04/23 10:33:00 AM EDT, Aerosol, Route to Pharmacy Electronically, [id number], [facility]/pharmacy #1130, 157, cm, 02/04/23 10:16:00 EDT, Height, 138.8, kg, 06/27/22 14:01:00 EDT, Dry Weight Start Date: 02/04/23 Stop Date: 01/30/24 Status: Ordered Quantity: 1.0 Unit: each Repeat number: 12 thiamine 100 mg oral tablet 100 mg, 1, tablet, By Mouth, Daily in AM, Refills 0, Maintenance, 10/10/19 4:21:00 AM EST Start Date: 10/10/19 Status: Ordered Repeat number: 1 Voltaren 1% topical gel 1 application, Topically, 4 times a day, # 100 Gm, 0 Refills, Maintenance, 12/20/22 8:43:00 AM EDT, Gel, Partial fill upon patient request if the prescription is for a schedule II opioid drug. Start Date: 12/20/22 Status: Ordered Quantity: 100.0 Unit: g Repeat number: 1 Zepbound 2.5 mg/0.5 mL subcutaneous solution = 2.5 mg, Subcutaneous Injection, Every week, rotate injection sites, # 2 mL, 1 Refills, Maintenance, 07/27/24 12:41:00 PM EST, Solution, [facility] #[id number], Partial fill upon patient request if the prescription is for a schedule II opioid drug. LET ME KNOW IF PA IS NEEDED, 157, cm, 07/02/24 10:01:00 EDT, Height, 144, kg, 07/02/24 10:01:00 EDT, Dry Weight Start Date: 07/27/24 Status: Ordered Quantity: 2.0 Unit: mL Repeat number: 2 zinc oxide 40% topical ointment 1 application, Topically, 4 times a day, PRN Rash, Apply to affected skin, # 454 Gm, 0 Refills, Maintenance, 08/06/24 1:30:00 PM EST, Ointment, [facility] #[id number], Partial fill upon patient request if the prescription is for a schedule II opioid drug., 1 application Topically 4 times a day,P RN:Rash,Instr:Apply to affected skin, 157, cm, 07/02/24 10:01:00 EDT, Height, 144, kg, 07/02/24 10:01:00 EDT, Dry Weight Start Date: 08/06/24 Status: Ordered Quantity: 454.0 Unit: g Repeat number: 1 Problem List Condition Confirmation Course Effective Dates Status H ealth Status Informant Acid reflux Confirmed Active Anxiety Confirmed Active Cervical radiculopathy Confirmed Active Chondromalacia patellae Confirmed Active COVID-19 Confirmed Active Shortness of breath Confirmed Active Erosive esophagitis Confirmed Active Rash Confirmed Active Family history of cancer of colon, MOTHER AT AGE 53 Confirmed Active Fatigue Confirmed Active Chronic foot pain Confirmed Active History of gastric bypass Confirmed Active Headache Confirmed Active Heart murmur Confirmed Active S/P implantation of urinary electronic stimulator device Confirmed Active Hyperplastic adenomatous polyp of stomach Confirmed 12/01/16 Active Moderate asthma Confirmed Active Asthma, moderate persistent, poorly-controlled Confirmed Active Mood disorder Confirmed Active Neuropathy Confirmed Active Obstructive sleep apnea Confirmed 11/25/12 Active Routine medical exam Confirmed Active Pharyngitis Confirmed Active Rectovaginal fistula Confirmed Active Recurrent UTI Confirmed Active Urinary retention Confirmed Active Seasonal allergic rhinitis Confirmed Active Severe obesity Confirmed Active Depression Confirmed Active Leg swelling Confirmed Active Vaginal discharge Confirmed Active Weight gain following gastric bypass surgery Confirmed Active Social History Social History Type Response Smoking Status Former smoker entered on: 05/30/15 Sex Female Sex Representation Female (finding) Patient Care team information Care Team Personnel Name: Caitie Sinha RN Position: [facility] AMB Nurse Member Role: Primary Care Nurse Name: Shannan Winston RN Position: [facility] RN Member Role: Primary Care Nurse Name: Caridad Louis MD Position: [facility] Physician - Primary Care Member Role: PCP Address: [address] [place] [address] Telecom: Name: Heather Zavala RN Position: [facility] SN RN Member Role: Primary Care Nurse Name: Jennifer Martinez RN Position: [facility] OB RN Member Role: Primary Care Nurse Name: Kristin Shaw RN Position: [facility] SN RN Member Role: Primary Care Nurse Name: Jo-Ann Glass RN Position: [facility] AMB Nurse Member Role: Primary Care Nurse Name: Desi Garcia RN Position: [facility] RN Member Role: Primary Care Nurse Name: Lolly Chapman RN Position: [facility] RN Member Role: Primary Care Nurse Name: Zhanna De Souza RN Position: [facility] SN RN Member Role: Primary Care Nurse Name: Allison Lundy RN Position: [facility] RN Member Role: Primary Care Nurse Care Team Related Persons Name: DUSTY QUAN Name: KIZZY QUAN Insurance Providers Guarantor name: [facility] Plan Information #: 1 Payer: [employer] PPO Member Number: NA Policy Number: NA Group Number: NA
--- OUTSIDE RECORDS SUMMARY | 2025-01-07 07:40 | XMS_ITS | Continuity of Care Document ---
Author Organization [facility] Address [address], [place] [address]- Care Team Providers Care Watch Supervisor Name Role Phone Caridad Louis MD Primary Care Physician Encounter [facility] [place] Date(s): 12/03/24 - 01/03/25 [facility] [address] [place], [place] [address] Attending Physician: Paola Chau MD, V Encounter Type: Pre Office Visit Allergies, Adverse Reactions, Alerts Substance Criticality Severity [...] diphtheria-tetanus toxoids (DT) 05/16/00 Given 1Result Comment: [facility] [id number] 2Result Comment: GIVEN @ [facility] 3Result Comment: [facility]# [id number] pt. tolerated inj. without complications....[place] 4Result Comment: [05/21/2018] [facility]# [id number] pt. tolerated inj. without complications....[place] 5Result Comment: [07/09/2016] [facility] employee 6Admin Note: done at e commerce specialist doctor 7Admin Note: SANOFI PASTEUR 8Admin Note: SANOFI PASTEUR 9Result Comment: [07/16/2017] given without incident......vb [facility]# [id number] 10Admin Note: 3rd Injection 11Admin Note: 2 INJECTION 12Admin Note: Injection: 1 Medications acetaminophen-oxyCODONE 325 mg-5 mg oral tablet See Instructions, PRN, 1-2 tablet By Mouth TWICE DAILY NEEDED ok to pay out of pocket until PA is approved fill when due, # 28 tablet, Refills 0, Tot. Refills 0, Maintenance, as needed for pain, 11/19/24 12:50:00 PM EDT, Instructions Replace Required Details, Route to Pharmacy Electronically, [facility] #[id number] Tablet, Partial fill upon patient request if the prescription is for a schedule II opioid drug. fill when due; ok to pay out of pocket until PA is approved, fill when due, 157, cm, 10/23/24 18:34:00 EST, Height, 161.2, kg, 10/23/24 11:54:00 EST, Dry Weight Start Date: 11/19/24 Status: Ordered Quantity: 28.0 Unit: tablet Repeat number: 1 Albuterol (Eqv-ProAir HFA) 90 mcg/inh inhalation aerosol See Instructions, PLEASE SEE ATTACHED FOR DETAILED DIRECTIONS, # 8.5 each, 5 Refills, Maintenance, 09/04/22 6:53:00 AM EST, [id number], 25, PLEASE SEE ATTACHED FOR DETAILED DIRECTIONS, [...] Refills, Maintenance, 12/01/24 4:30:00 PM EDT, Tablet, [facility] #[id number], 157, cm, 10/23/24 18:34:00 EST, Height, 161.2, [...] 4:59:00 PM EST, Route to Pharmacy Electronically, [facility] #[id number], Partial fill upon patient request if the [...] Refills, Maintenance, 09/23/24 2:53:00 PM EST, Gel, [facility] #[id number], Partial fill upon patient request if the [...] 0 Refills, Maintenance, 10/02/21 12:53:00 PM EST, [place], [facility] #[id number], Partial fill upon patient request if the [...] Unit: each Repeat number: 12 nystatin topical 872463 u/gm powder 1 application, Topically, 2 times a day, # 60 Gm, 5 Refills, Maintenance, 01/18/23 3:57:00 PM EDT, Powder, [facility] #[id number], Partial fill upon patient request if the [...] Replace Required Details, Route to Pharmacy Electronically, [facility] #[id number], Partial fill upon patient request if the [...] 12:32:00 PM EDT, Route to Pharmacy Electronically, [facility] #[id number] Tablet, Partial fill upon patient request if [...] Refills, Maintenance, 02/04/23 10:33:00 AM EDT, Aerosol, [facility]/pharmacy #1130, asthma j45.9, 157, cm, 02/04/23 10:16:00 [...] AM EDT, Aerosol, Route to Pharmacy Electronically, [id number], [facility]/pharmacy #[id number], 157, cm, 02/04/23 10:16:00 EDT, Height, [...] Refills, Maintenance, 07/27/24 12:41:00 PM EST, Solution, [facility] #[id number], Partial fill upon patient request if the [...] Refills, Maintenance, 08/06/24 1:30:00 PM EST, Ointment, [facility] #[id number], Partial fill upon patient request if the [...] Team Personnel Name: Caitie Sinha RN Position: [facility] AMB Nurse Member Role: Primary Care Nurse Name: Shannan Winston RN Position: [facility] RN Member Role: Primary Care Nurse Name: Caridad Louis MD Position: [facility] Physician - Primary Care Member Role: PCP Address: [address] [place] [address] Telecom: Name: Heather Zavala RN Position: [facility] RN Member Role: Primary Care Nurse Name: Jennifer Martinez RN Position: [facility] OB RN Member Role: Primary Care Nurse Name: Kristin Shaw RN Position: [facility] SN RN Member Role: Primary Care Nurse Name: Jo-Ann Glass RN Position: [facility] AMB Nurse Member Role: Primary Care Nurse Name: Desi Garcia RN Position: [facility] RN Member Role: Primary Care Nurse Name: Lolly Chapman RN Position: [facility] RN Member Role: Primary Care Nurse Name: Zhanna De Souza RN Position: [facility] SN RN Member Role: Primary Care Nurse Name: Allison Lundy RN Position: [facility] RN Member Role: Primary Care Nurse Care Team Related Persons Name: MERRICKCARTERSIGIFREDODUSTY Name: KIZZY QUAN Insurance Providers Guarantor name[facility] Information #: 1 Payer: [employer] P[employer] Member Number: [id number] Policy Number: NA Group Number: [id number] Health Plan Information #: 2 Payer: [employer] PPO Member Number: [id number] Policy Number: NA Group Number: [id number]
--- OUTSIDE RECORDS SUMMARY | 2025-01-07 07:40 | XMS_ITS | Clinical Summary ---
Author Organization [facility] Address [address] [place] [address] Care Team Providers Care Athletic Agent Name Role Phone Caridad Louis MD Primary Care Provider [phone] Allergies Active Allergy Reactions Criticality Noted Date Comments Nitrofurantoin Anaphylaxis,Itching, Othe r (See Comments) High 01/06/2019 Difficulty breathing Nsaids 11/12/2021 Severe gastritis Tape Other (See Comments) 11/12/2021 Adhesive Bandage Medications Medication Sig Dispensed Refills Start Date End Date Status ARIPiprazole (ABILIFY) 15 MG tablet Take 15 mg by mouth daily. 0 12/08/2021 Active gabapentin (NEURONTIN) 300 MG capsule Take 300 mg by mouth 3 (three) times a day. 0 2021 Active lamoTRIgine (LaMICtal) 100 MG tablet Take 100 mg by mouth. 0 Active oxyCODONE-acetaminoph en (PERCOCET) 5-325 MG per tablet TAKE 1 TO 2 TABLETS BY MOUTH TWICE A DAY NEEDED FOR PAIN 0 01/08/2022 Active tiZANidine (ZANAFLEX) 2 MG tablet TAKE 1-2 TABLETS BY MOUTH 3 TIMES A DAY NEEDED FOR MODERATE PAIN 0 01/08/2022 Active sertraline (ZOLOFT) 25 MG tablet Take 25 mg by mouth daily. 0 Active clonazePAM (KlonoPIN) 1 MG tablet TAKE 1 TABLET BY MOUTH 2 TIMES A DAY X 14 DAYS NEEDED FOR ANXIETY 0 01/26/2022 Active cyanocobalamin 1000 MCG tablet Take 1,000 mcg by mouth. 0 10/10/2019 Active fluconazole (DIFLUCAN) 150 MG tablet TAKE 1 TABLET BY MOUTH EVERY 48 HOURS 0 04/09/2022 Active furosemide (Lasix) 40 MG tablet Take 40 mg by mouth. 0 10/26/2020 Active loperamide (IMODIUM A-D) 2 MG tablet Take 1 tablet by mouth 4 (four) times a day. 0 06/28/2021 Active metFORMIN (GLUCOPHAGE) tablet 500 mg Take 1 tablet by mouth daily. 0 Active Family History Medical History Relation Name Comments Diabetes Father Cancer Mother Hypertension Mother Relation Name Status Comments Father Mother Social History Tobacco Use Types Packs/Day Years Used Date Smoking Tobacco: Never Assessed Sex and Gender Information Value Date Recorded Sex Assigned at Not on file Gender Identity Not on file Sexual Orientation Not on file Job Start Date Occupation Industry Not on file Not on file Not on file Last Filed Vital Signs Vital Sign Reading Time Taken Comments Blood Pressure - - Pulse - - Temperature - - Respiratory Rate - - Oxygen Saturation - - Inhaled Oxygen Concentration - - Weight 133.8 kg (295 lb) 01/12/2022 10:34 AM EDT Height 157.5 cm (5' 2 ) 01/12/2022 10:34 AM EDT Body Mass Index 53.96 01/12/2022 10:34 AM EDT Plan of Treatment Health Maintenance Due Date Last Done Comments Hepatitis B Vaccines (1 of 3 - 3-dose series) 1974 Hepatitis C Screening 1974 Depression Screening 1986 BMI Counseling 1992 Preventative Health Evaluation 1992 Cervical Cancer Screening (Pap Smear) 12/02/1995 DTap / Tdap / Td (2 - Tdap) 05/16/2010 05/16/2000 Colon Cancer Screening (Colonoscopy) 12/02/2019 COVID-19 Vaccine ( season) 2024 06/24/2021, 09/20/2020, 08/30/2020 Influenza Vaccine (#1) 2024 , 06/23/2019, 05/21/2018, Additional history exists Breast Cancer Screening (Mammogram) 2024 Shingrix-Zoster Vaccine (1 of 2) 2024 Pneumococcal Vaccine Aged Out 07/16/2017 No long er eligible based on patient's age to complete this topic RSV Ped < 20 months Aged Out No longe r eligible based on patient's age to complete this topic Care Teams Athletic Agent Relationship Specialty Start Date End Date Caridad Louis MD [address] [place] [address] [phone] PCP - General Internal Medicine 12/21/21
--- OUTSIDE RECORDS SUMMARY | 2025-01-07 07:40 | XMS_ITS | Clinical Summary ---
Author Organization [facility] Address [address] [place] [address] Care Team Providers Care Relationship Associate Name Role Phone Caridad Louis MD Primary Care Provider Allergies Active Allergy Reactions Criticality Noted Date Comments Adhesive Rash 06/18/2024 Nitrofurantoin Monohyd/M-Cryst Anaphylaxis High 01/06/2019 Nsaids (Non-Steroidal Anti-Inflammatory Drug) Peptic Ulcer Disease,Gastritis 06/18/2024 Pollen Extracts Unknown 06/18/2024 Medications fluticasone propion-salmeteroL (ADVAIR DISKUS) 500-50 mcg inhaler Inhale 1 puff by mouth 2 times daily. Active esomeprazole (NexIUM) 40 mg capsule Take 40 mg by mouth once a day. Active lamoTRIgine (LaMICtal) 200 mg tablet Take 200 mg by mouth 2 times a day. 12/24/19 24 Active levonorgestreL (Mirena) 21 mcg/24hr (up to 8 yrs) 52 mg 5 year intrauterine device as directed Intrauterine Active loperamide (IMODIUM) 2 mg capsule Take 4 mg by mouth 2 times a day. 02/21/20 24 Active ondansetron ODT (ZOFRAN ODT) 8 mg disintegrating tablet Dissolve 8 mg in the mouth every 8 hours as needed for nausea or vomiting. 12/24/19 24 Active oxyCODONE-acetamin ophen (PERCOCET) 5-325 mg tablet Take 1-2 tablets by mouth 2 times a day as needed for pain. 06/08/20 Active pregabalin (LYRICA) 100 mg capsule Take 100 mg by mouth 3 times a day. 06/11/20 Active sertraline (ZOLOFT) 50 mg tablet Take 50 mg by mouth once a day. 06/06/20 Active ARIPiprazole (ABILIFY) 20 mg tablet Take 20 mg by mouth once a day. Active albuterol (PROAIR HFA,VENTOLIN HFA) 90 mcg inhaler Inhale 2 puffs by mouth every 6 hours as needed for wheezing or shortness of breath. Use with spacer. Active naftifine (Naftin) 2 % gel by Topical (top) route 2 times a day. Active mirtazapine (REMERON) 15 mg tablet Take 7.5 mg by mouth nightly. Active multivitamin (THERAGRAN) tablet Take 1 tablet by mouth once a day. Active butalbital-acetami nophen-caffeine (FIORICET) 50-325-40 mg tablet Take 2 tablets by mouth 2 times a day as needed for headache. Active clonazePAM (KlonoPIN) 2 mg tablet Take 1 mg by mouth 2 times a day. Active ipratropium-albute roL (DUO-NEB) 0.5-2.5 mg/3 mL nebulizer solution Inhale 3 mL via nebulizer 4 times a day as needed for wheezing. Active nystatin (MYCOSTATIN) 100,000 unit/gram powder Apply topically to the affected area 2 times a day. Active tirzepatide, weight loss, (Zepbound) 2.5 mg/0.5 mL pen injector pen injector Inject 2.5 mg under the skin every 7 days. Active acetaminophen (TYLENOL) 500 mg tablet Take 1 tablet (500 mg total) by mouth every 6 hours as needed for pain. 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 Cervical radiculopathy 07/29/2024 Asthma 07/29/2024 Overview (07/29/2024): Started in childhood Acid reflux 07/29/2024 Weight gain following gastric bypass surgery Vaginal discharge 07/29/2024 Urinary retention 07/29/2024 Shortness of breath 07/29/2024 Seasonal allergic rhinitis 07/29/2024 S/P implantation of urinary electronic stimulato r device 07/29/2024 Recurrent UTI 07/29/2024 Rash 07/29/2024 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 07/29/2024 Severe obesity 07/29/2024 Obesities, morbid 07/29/2024 Overview (07/29/2024): All my life Morbid (severe) obesity due to excess calories 1 09/28/2023 Neuropathy 07/29/2024 Mood disorder 07/29/2024 Manic affective disorder, re current episode, moderate degree 07/29/2024 Overview (07/29/2024): Start date unknown Leg swelling 07/29/2024 Chronic foot pain 07/02/2024 Asthma, moderate persistent, poorly-controlled 1 Anxiety 07/02/2024 Severe episode of recurrent major depressive disorder, without psychotic features 07/02/2024 Pharyngitis 07/02/2024 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 Obstructive sleep apnea 11/25/2012 Encounters Date Type Department Care Team Description 12/02/2024 [employer] Message [facility] [address] [place] [phone] Tub Chucker: Jerman Gaitan MD Urine 11/25/2024 Telephone [facility] [address] [place] [phone] Tub Chucker: Jerman Gaitan MD 11/25/2024 [employer] Message [facility] [address] [phone] Tub Chucker: Jerman Gaitan MD December 02 11/17/2024 myChart Message [facility] [address] [place] [phone] Tub Chucker: Jerman Gaitan MD Return to work 11/05/2024 Telephone [facility] [address] [place] [address] Tub Chucker: Susie Finley RN 11/05/2024 myChart Message [facility] [address] [place] [address] Tub Chucker: Jerman Gaitan MD Post surgical pain 10/30/2024 myChart Message [facility] [address] [place] [phone] Tub Chucker: Jerman Gaitan MD Bowel movements 10/29/2024 Telephone [facility] [address] [place] [address] Tub Chucker: Susie Finley, RN 10/29/2024 myChart Message [facility] [address] [place] [phone] Tub Chucker: Jerman Gaitan MD Voiding trial 10/28/2024 myChart Message [facility] [address] [place] [phone] Tub Chucker: Eli Roach, Generic Provider FMLA 10/28/2024 Telephone [facility] [address] [place] [address] Tub Chucker: Janette Reyes LPN 10/27/2024 12:49 PM EST Anesthesia Event [facility] Operating Room [address] [place] [phone] David Irvin MD [place], Dannah Rae M., MD 10/27/2024 11:35 AM EST - 10/27/2024 1:45 PM EST Surgery [facility] Operating Room [address] [place] [id number] Jerman Shepherd MD CLOSURE OF RECTOVESICAL FISTULA [[id number] (CPT??)] 10/27/2024 9:22 AM EST - 10/27/2024 6:27 PM EST Hospital Encounter [facility] Operating Room [address] [place] [phone] Jerman Shepherd MD Rectovaginal fistula Discharge Disposition: Home or Self Care (01) 10/12/2024 11:00 AM EST Office Visit [facility] [address] [place] [phone] Tub Chucker: Jerman Gaitan MD Rectovaginal fistula (Primary Dx) from Last 3 Months Immunizations Immunization Administration Dates Next Due Diphtheria and Tetanus Toxoi ds, Adsorbed for Pediatric Use 05/16/2000 Hepatitis B adult (ENGERIX-B ADULT) vaccine 1 mL IM 11/04/2012,05/08/2012,04/10/2012 INFLUENZA, SPLIT VIRUS, TRIVALENT, PF 06/23/2019 Influenza Whole 06/12/2021,07/06/2008,06/20/2007 Influenza, Injectable, Quadr ivalent, Preservative Free 06/04/2020,06/05/2016 Influenza, Trivalent, MDV, Injectable ,05/21/2018,06/08/2016,05/28,05/17/2012,07/09/2006 Measles, Mumps, and Rubella Vaccine 06/30/2014,0 04/26/2014 Pneumococcal Polysaccharide Vaccine, 23 Valent 07/16/2017 Pneumococcal conjugate PCV20,polysaccharide [id number] conjugate, adjuvant, PF (Prevnar 20) 12/20/2022 Tetanus Toxoid, Reduced Diph theria Toxoid, and Acellular Pertussis Vaccine, Adsorbed 12/20/2022,11/26/2011 Family History Medical History Relation Name Comments Diabetes Father Cancer Mother Relation Name Status Comments Father Mother Social History Tobacco Use Types Packs/Day Years Used Date Smoking Tobacco: Former Cigarettes 1 5 Q uit: 2004 Passive Smoke Exposure: Past Smokeless Tobacco: Never Tobacco Cessation:Counseling Given: Not Answered Alcohol Use Standard Drinks/Week Comments Not Currently 0 (1 standard drink = 0.6 oz pur e alcohol) Comments No Sex and Gender Information Value Date Recorded Sex Assigned at Female 05/05/2024 8:17 AM EDT Legal Sex Female 8:14 AM EDT Gender Identity Female 05/05/2024 8:17 AM EDT Sexual Orientation Straight 06/11/2024 10 :00 AM EDT Last Filed Vital Signs Vital Sign Reading Time Taken Comments Blood Pressure 119/77 10/27/2024 4:07 PM EST Pulse 64 10/27/2024 4:07 PM EST Temperature 36.6 ??C (97.9 ??F) 10/27/2024 4:07 PM ES T Respiratory Rate 16 10/27/2024 4:07 PM EST Oxygen Saturation 95% 10/27/2024 4:07 PM EST Inhaled Oxygen Concentration - - Weight 163.3 kg (360 lb) 10/27/2024 10:04 AM EST Height 157.5 cm (5' 2 ) 10/27/2024 10:04 AM EST Body Mass Index 65.84 10/27/2024 10:04 AM EST Plan of Treatment Health Maintenance Due Date Last Done Comments Cervical Cancer Screening 1974 Cologuard 1974 Colon Cancer Screening 1974 Colonoscopy 1974 FOBT / Fit Test 1974 HIV Screening 1974 HPV and Pap Smear 1974 Hepatitis C Screening 1974 Pap Smear 1974 Sigmoidoscopy 1974 Mammogram 2014 COVID-19 Vaccine (4 - 2023-2 5 season) 2024 06/24/2021, 09/20/2020, 08/30/2020 Alcohol/Substance Use Screening 09/02/2024 Depression Screening and Follow-Up 09/02/2024 Social Drivers of Health Jaycee ual Screening 09/02/2024 Zoster Vaccines (1 of 2) 2024 Influenza Vaccine (Season Ended) 2025 06/21/2023, 06/12/2021, 06/04/2020, Additional history exists DTaP,Tdap,and Td Vaccines (4 - Td or Tdap) 12/20/2032 12/20/2022, 11/26/2011, 05/16/2000 RSV Vaccine (60+ years old a nd patients) (1 - 1-dose 75+ series) 2049 Hepatitis B Vaccines Completed 11/04/2012, 05/08/2012, 04/10/2012 Pneumococcal Vaccine: 50+ Years Completed , 07/16/2017 Procedures * Due to [place] [employer] [place] law, this organization might not be sharing negative HIV tests. Procedure Name Priority Date/Time Associated Diagnosis Comments TISSUE EXAM Routine 10/27/2024 1:51 PM EST Rectovaginal fistula FL CLOSE RECTUM-BLADDER FISTULA 10/27/2024 12:38 PM EST Rectovaginal fistula Special Needs DARRIUS on CPAP TYPE AND SCREEN Routine 10/27/2024 12:09 PM EST POCT HCG, URINE Routine 10/27/2024 10:03 AM EST POCT GLUCOSE Routine 10/27/2024 10:01 AM EST BASIC METABOLIC PANEL Routine 10/12/2024 11:59 AM EST Rectovaginal fistula Pre-op testing CBC AUTO DIFFERENTIAL Routine 10/12/2024 11:59 AM EST Rectovaginal fistula Pre-op testing from Last 3 Months Results * Due to [place] [employer] [place] law, this organization might not be sharing negative HIV tests. * Tissue Exam (10/27/2024 1:51 PM EST) Final Diagnosis Recto-Vaginal Fistula: - Irregular squamous mucosa with underlying fibrosis. [facility] MANUAL 10/28/2024 2:11 PM EST [facility] at 1411 EST Clinical History Pre-op diagnosis: Rectovaginal fistula [N82.3] [facility] MANUAL 10/28/2024 2:11 PM EST [facility] Gross Description 1. Vagina Received in formalin, labeled the patient's name, MRN, date of , and vaginal fistula , is an unoriented, irregular, curiel-pink to pink-red soft tissue (1.0 x 0.6 x 0.5 cm). The specimen is trisected, revealing a ucriel-pink to pink-red, focally disrupted cut surface. The specimen is entirely submitted in cassette 1A. [facility] MANUAL 10/28/2024 2:11 PM EST [facility] Gross Description User Grossing complete by Heide Mcconnell on 10/27/2024 4:10 PM [facility] MANUAL 10/28/2024 2:11 PM EST [facility] Embedded Images [facility] MANUAL 10/28/2024 2:11 PM EST [facility]ITAL[facility]ay[facility] SystemsCL[facility] Runteq [facility] Resulting Agency Case was signed out at [facility], Department of Pathology, Biotech 3 KEMALIA [id number] [facility] MANUAL 10/28/2024 2:11 PM EST [facility]ITALCay[facility]AS[facility] Desktop [employer]etics [facility] Report Header Surgical Pathology Report ? Case: [id number] ? Authorizing Provider: ??Jerman Shepherd MD ? Collected: ? 10/27/2024 1351 ? Ordering Location: ? [facility] ? Received: ?10/27/2024 1543 ? [facility] ? Operating Room ? Pathologist: ? Freida Zavala MD ? Specimen: ?Vagina, RECTO-VAGINAL FISTULA ? 10/28/2024 2:11 PM EST [facility] Tissue Vaginal structure / Unknown 10/27/2024 1:51 PM EST 10/27/2024 3:43 PM EST Comment:Pre-op diagnosis: Rectovaginal fistula [N82.3] us Jerman Shepherd MD LAB PATHOLOGY/CYTOLOGY ORDER DARRYL Final Result [facility] [address] [place] [address], [place] [facility] [address] [place] [address], [place] * Type and Screen (10/27/2024 12:09 PM EST) ABO Blood Type O 10/27/2024 1:28 PM EST [facility] RH Type Positive 10/27/2024 1:28 PM EST [facility] Expiration Date/Time 2024-10-30 23:59 10/27/2024 1:28 PM EST [facility] Antibody Screen Negative 10/27/2024 1:28 PM EST [facility] Blood Structure of peripheral vein / Unknown Venipuncture / Unknown 10/27/2024 12:09 PM EST 10/27/2024 12:42 PM EST Gisell Aguilar BULLET SWAGING MACHINE ADJUSTER LAB BLOOD BANK TEST ORDERABLES E dited Result - Final [facility] [address] [place] [address], [place] [phone] * POCT HCG, Urine, non-interfaced (10/27/2024 10:03 AM EST) Control band present? Yes Background Clear? Yes Preg Test, Ur Negative Negative Urine 10/27/2024 10:0 3 AM EST Jerman Shepherd MD POINT OF CARE TEST ORDERABLE S Final Result * (ABNORMAL) POCT Glucose, interfaced (10/27/2024 10:01 AM EST) Glucose, POCT 105(H) 70 - 99 mg/dL 10/27/2024 10:02 AM EST [facility] Comment: The dry finisher has not determined the efficacy of this test in Critically ill patients. ??[facility] defines Critically ill patients for the purpose of blood glucose monitoring (BGM) by glucometer, as patients meeting one or more of the following criteria: Hypotension- non-ICU patients (systolic blood pressure Less than 90 mmHg) due to shock Hypotension -ICU patients ??(Mean Arterial Pressure (MAP) <60 mmHg or systolic blood pressure < 90 mmHg due to shock Patients receiving Vasopressors (phenylephrine, vasopressin or norepinephrine) Anasarca In all locations, BGM test results should not be relied upon in the above situations, unless these results confirmed with lab-based glucose values. Blood 10/27/2024 10:0 1 AM EST 10/27/2024 10:02 AM EST us Jerman Shepherd MD LAB POCT ORDERABLES - DEVICE Final Result [facility] [address] [place] [address], * (ABNORMAL) CBC Auto Differential (10/12/2024 11:59 AM EST) WBC 9.7 3.8 - 10.8 10*3/uL 10/12/2024 12:58 PM EST [facility] RBC 4.98 3.80 - 5.10 10*6/uL 10/12/2024 12:58 PM EST [facility] Hemoglobin 13.7 11.7 - 15.5 g/dL 10/12/2024 12:58 PM EST [facility] Hematocrit 43.1 35.0 - 45.0 % 10/12/2024 12:58 PM EST [facility] MCV 86.5 80.0 - 100.0 fL 10/12/2024 12:58 PM EST [facility] MCH 27.5 27.0 - 33.0 pg 10/12/2024 12:58 PM EST [facility] MCHC 31.8(L) 32.0 - 36.0 g/dL 10/12/2024 12:58 PM EST [facility] RDW 14.0 11.0 - 15.0 % 10/12/2024 12:58 PM [facility] Platelets 217 140 - 400 10*3/uL 10/12/2024 12:58 PM [facility] MPV 10.3 7.5 - 12.5 fL 10/12/2024 12:58 PM [facility] Neutrophil % 76.3 % 10/12/2024 12:58 PM [facility] Immature Grans % 0.4 0.0 - 0.9 % 10/12/2024 12:58 PM [facility] Lymphocyte % 17.7 % 10/12/2024 12:58 PM [facility] Monocyte % 4.7 % 10/12/2024 12:58 PM [facility] Eosinophil % 0.4 % 10/12/2024 12:58 PM [facility] Basophil % 0.5 % 10/12/2024 12:58 PM [facility] Neutrophil # 7.37 1.50 - 7.80 10*3/uL 10/12/2024 12:58 PM [facility] Immature Grans # 0.04(H) <=0.03 10*3/uL 10/12/2024 12:58 PM [facility] Lymphocyte # 1.70 0.85 - 3.90 10*3/uL 10/12/2024 12:58 PM [facility] Monocyte # 0.50 0.20 - 0.95 10*3/uL 10/12/2024 12:58 PM [facility] Eosinophil # <0.03 0.02 - 0.50 10*3/uL 10/12/2024 12:58 PM [facility] Basophil # 0.10 0.00 - 0.20 10*3/uL 10/12/2024 12:58 PM [facility] nRBC % 0.0 /100 WBCs 10/12/2024 12:58 PM EST [facility] nRBC # <0.01 <0.01 10*3/uL 10/12/2024 12:58 PM EST [facility] Blood Structure of peripheral vein / Unknown Venipuncture / Unknown 10/12/2024 11:59 AM EST 10/12/2024 12:38 PM EST us Gisell Aguilar BULLET SWAGING MACHINE ADJUSTER LAB BLOOD ORDERABLES Final Resul t [facility] [address] [place] [address], * (ABNORMAL) Basic Metabolic Panel (10/12/2024 11:59 AM EST) NA 143 135 - 145 mmol/L 10/12/2024 1:26 PM EST [facility] K 4.9 3.5 - 5.3 mmol/L 10/12/2024 1:26 PM EST [facility] Cl 106 98 - 107 mmol/L 10/12/2024 1:26 PM EST [facility] CO2 24 22 - 32 mmol/L 10/12/2024 1:26 PM EST [facility] BUN 14 7 - 23 mg/dL 10/12/2024 1:26 PM EST [facility] Creatinine 0.88 0.50 - 1.20 mg/dL 10/12/2024 1:26 PM EST [facility] Glucose 122(H) 65 - 99 mg/dL 10/12/2024 1:26 PM EST [facility] Calcium 9.4 8.6 - 10.5 mg/dL 10/12/2024 1:26 PM EST [facility] Anion Gap 13 5 - 15 10/12/2024 1:26 PM EST [facility] eGFR 81 >=60 mL/min/1. 73m2 10/12/2024 1:26 PM EST [facility] Comment:The estimated glomer ular filtration rate (eGFR) is calculated using a new formula developed by the NKF-ASN task force to eliminate race-based correction factors. The new formula uses serum/plasma creatinine, age, and gender to determine eGFR. A value below 60mls/min might indicate kidney disease and will be flagged. For additional information, see Gracie et al, Am J Kidney Dis. 2021;79(2):268- 288, A Unifying Approach for GFR estimation: Recommendations of the NKF-ASN Task Force on Reassessing the Inclusion of Race in Diagnosing Kidney Disease . Blood Structure of peripheral vein / Unknown Venipuncture / Unknown 10/12/2024 11:59 AM EST 10/12/2024 12:38 PM EST us Gisell Aguilar BULLET SWAGING MACHINE ADJUSTER LAB BLOOD ORDERABLES Final Resul t [facility] [address] [place], [place] [id number], from Last 3 Months Insurance [employer] Advance Directives * Presumed Full Code (Latest Code Status on File) Date Activated Date Inactivated Comments 10/27/2024 10:29 AM 10/27/2024 9:21 PM * Presumed Full Code Date Activated Date Inactivated Comments 08/04/2024 8:56 AM 08/04/2024 3:36 PM Care Teams Relationship Associate Relationship Specialty Start Date End Date Caridad Louis MD [address] [place] [address] PCP - General Internal Medicine 05/05/24
--- OUTSIDE RECORDS SUMMARY | 2025-01-07 07:40 | XMS_ITS | Referral Summary ---
Author Organization [facility] Address [address] [place] [address] Care Team Providers Care Solar Sales Name Role Phone Caridad Louis MD Primary Care Provider [phone] Encounters Date Type Department Care Team Description 12/02/2024 BizBrag Message [facility] [address] [place] [address] Analog Ic Design Engineer: Jerman Gaitan MD [facility] 11/25/2024 Telephone [facility] [address] [place] [address] Analog Ic Design Engineer: Jerman Gaitan MD 11/25/2024 [employer]izBrag Message [facility] [address] [place] [address] Analog Ic Design Engineer: Jerman Gaitan MD December 02 11/17/2024 [employer]izBrag Message [facility] [address] [place] [address] Analog Ic Design Engineer: Jerman Gaitan MD Return to work 11/05/2024 Telephone [facility] [address] [place] [address], [place] [address] Analog Ic Design Engineer: Susie Finley, RN 11/05/2024 myChart Message [facility] [address] [place] [address] Analog Ic Design Engineer: Jerman Gaitan MD Post surgical pain 10/30/2024 myChart Message [facility] [address] [place] [address] Analog Ic Design Engineer: Jerman Gaitan MD Bowel movements 10/29/2024 Telephone [facility] [address] [address] Analog Ic Design Engineer: Susie Finley, GILLIAN 10/29/2024 myChart Message [facility] [address] [place] [address] Analog Ic Design Engineer: Jerman Gaitan MD Voiding trial 10/28/2024 myChart Message [facility] [address] [address] Analog Ic Design Engineer: Eli Roach, Generic Provider FMLA 10/28/2024 Telephone [facility] [address] [place] [address] Analog Ic Design Engineer: Janette Reyes LPN 10/27/2024 11:35 AM EST - 10/27/2024 1:45 PM EST Surgery [facility] Operating Room [address] [place] [address] Jerman Shepherd MD CLOSURE OF RECTOVESICAL FISTULA [86200 (CPT??)] 10/27/2024 12:49 PM EST Anesthesia Event [facility] Operating Room [address] [place] [address] David Irvin MD [place], Dannah Rae M., MD 10/27/2024 9:22 AM EST - 10/27/2024 6:27 PM EST Hospital Encounter [facility] Operating Room [address] [place] [address] Jerman Shepherd MD Rectovaginal fistula Discharge Disposition: Home or Self Care () 10/12/2024 11:00 AM EST Office Visit [facility] [address] [place] [address] Analog Ic Design Engineer: Jerman Gaitan MD Rectovaginal fistula (Primary Dx) from Last 3 Months Allergies Active Allergy Reactions Criticality Noted Date [...] a day as needed for pain. 06/08/20 24 Active pregabalin (LYRICA) 100 mg capsule Take 100 mg by mouth 3 times a day. 06/11/20 24 Active sertraline (ZOLOFT) 50 mg tablet Take 50 mg by mouth once a day. 06/06/20 22 Active ARIPiprazole (ABILIFY) 20 mg tablet Take [...] of stomach 2016 Obstructive sleep apnea 11/25/2012 Immunizations Immunization Administration Dates Next Due Diphtheria and Tetanus Toxoi ds, Adsorbed for Pediatric Use 05/16/2000 Hepatitis B adult (ENGERIX-B ADULT) vaccine 1 mL IM 11/04/2012,05/08/2012,04/10/2012 INFLUENZA, SPLIT VIRUS, TRIVALENT, PF 06/23/2019 Influenza Whole 06/12/2021,07/06/2008,06/20/2007 Influenza, Injectable, Quadr ivalent, Preservative Free 06/04/2020,06/05/2016 Influenza, Trivalent, MDV, Injectable ,05/21/2018,06/08/2016,05/28,05/17/2012,07/09/2006 Measles, Mumps, and Rubella Vaccine 06/30/2014,0 04/26/2014 Pneumococcal Polysaccharide Vaccine, 23 Valent 07/16/2017 Pneumococcal conjugate PCV20,polysaccharide FIY150 conjugate, adjuvant, PF (Prevnar 20) 12/20/2022 Tetanus Toxoid, Reduced Diph theria Toxoid, and Acellular Pertussis Vaccine, Adsorbed 12/20/2022,11/26/2011 Social History Tobacco Use Types Packs/Day Years [...] 10/27/2024 10:04 AM EST Plan of Treatment Not on file Procedures * Due to [place] state law, this organization might not be sharing negative HIV tests. Procedure Name Priority Date/Time Associated Diagnosis Comments TISSUE EXAM Routine 10/27/2024 1:51 PM EST Rectovaginal fistula HI CLOSE RECTUM-BLADDER FISTULA 10/27/2024 12:38 PM EST [...] Last 3 Months Results * Due to [place] state law, this organization might not be sharing negative HIV tests. * Tissue Exam (10/27/2024 1:51 PM EST) Final Diagnosis Recto-Vaginal Fistula: - Irregular squamous mucosa with underlying fibrosis. [facility] MANUAL 10/28/2024 2:11 PM EST [facility] at 1411 EST Clinical History Pre-op diagnosis: Rectovaginal fistula [N82.3] [facility] 10/28/2024 2:11 PM EST [facility] PATHOLOGY LABORATORY Gross Description 1. Vagina Received in formalin, labeled the patient's name, MRN, date of , and vaginal fistula , is an unoriented, irregular, curiel-pink to pink-red soft tissue (1.0 x 0.6 x 0.5 cm). The specimen is trisected, revealing a curiel-pink to pink-red, focally disrupted cut surface. The specimen is entirely submitted in cassette 1A. [facility] 10/28/2024 2:11 PM EST [facility] AN[facility] PATHOLOG[facility] LABOR[facility] Gross Description User Grossing complete by Heide Mcconnell on 10/27/2024 4:10 PM [facility]UAL 10/28/2024 2:11 PM EST [facility] ANATOMIC PATHOLOGY LAB[facility]ORY Embedded Images [facility] 10/28/2024 2:11 PM EST [facility] Resulting Agency Case was signed out at [facility], Department of Pathology, [employer] 3 CLIA [id number] [facility] 10/28/2024 2:11 PM EST [facility] Report Header Surgical Pathology Report ? Case: [id number] ? Authorizing Provider: ??Jerman Shepherd MD ? Collected: ? 10/27/2024 1351 ? Ordering Location: ? [facility] ? Received: ?10/27/2024 1543 ? [facility] ? Operating Room ? Pathologist: ? Freida Zavala MD ? Specimen: ?Vagina, RECTO-VAGINAL FISTULA ? 10/28/2024 2:[address] 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.3] Jerman Shepherd MD LAB PATHOLOGY/CYTOLOGY ORDER DARRYL Final Result Performing Organization Address [facility] Co de Phone Number [facility] [employer] [facility] ANAT[facility] LABORAT[facility] [address] [place] [id number], [facility] ANATOM[facility] PATHOLOGY LAB[facility] [address] [place] [address], * Type and Screen (10/27/2024 12:09 PM EST) ABO Blood Type O 10/27/2024 1:28 PM EST [facility] RH Type Positive 10/27/2024 1:28 PM EST [facility] Expiration Date/Time 2024-10-30 23:59 10/27/2024 1:28 PM EST [facility] Antibody Screen Negative 10/27/2024 1:28 PM EST [facility] Blood Structure of peripheral vein / Unknown Venipuncture / Unknown 10/27/2024 12:09 PM EST 10/27/2024 12:42 PM EST Gisell Aguilar NP LAB BLOOD BANK TEST ORDERABLES E dited Result - Final Performing Organization Address [facility] Co de Phone Number [facility] [address] [place] [address], * POCT HCG, Urine, non-interfaced (10/27/2024 10:03 AM EST) Control band present? Yes Background Clear? Yes Preg Test, Ur Negative Negative Urine 10/27/2024 10:0 3 AM EST Jerman Shepherd MD POINT OF CARE TEST ORDERABLE S Final Result * (ABNORMAL) POCT Glucose, interfaced (10/27/2024 10:01 AM EST) [facility] Glucose, POCT 105(H) 70 - 99 mg/dL 10/27/2024 10:02 AM EST [facility], POC Comment: The insurance verification specialist has not determined the efficacy of this test in Critically ill patients. ??[facility] defines Critically ill patients for the purpose [...] LAB POCT ORDERABLES - DEVICE Final Result Performing Organization Address City/State/[facility] Co de Phone Number [facility] [address] [place] [address], [place] * (ABNORMAL) CBC Auto Differential (10/12/2024 11:59 AM EST) [facility] WBC 9.7 3.8 - 10.8 10*3/uL 10/12/2024 12:58 PM EST [facility] CLINICAL PATHOLOGY LABORAT[facility] RBC 4.98 3.80 - 5.10 10*6/uL 10/12/2024 12:58 PM EST [facility] Hemoglobin 13.7 11.7 - 15.5 g/dL 10/12/2024 12:58 PM EST [facility] Hematocrit 43.1 35.0 - 45.0 % 10/12/2024 12:58 PM EST [facility] MCV 86.5 80.0 - 100.0 fL 10/12/2024 12:58 PM [facility] PATHOLOG[facility] MCH 27.5 27.0 - 33.0 pg 10/12/2024 12:58 PM [facility] PATH[facility] MCHC 31.8(L) 32.0 - 36.0 g/dL 10/12/2024 12:58 PM [facility] RDW 14.0 11.0 - 15.0 % 10/12/2024 12:58 PM [facility] Platelets 217 140 - 400 10*3/uL 10/12/2024 12:58 PM [facility] MPV 10.3 7.5 - 12.5 fL 10/12/2024 12:58 PM [facility] Neutrophil % 76.3 % 10/12/2024 12:58 PM [facility] Immature Grans % 0.4 0.0 - 0.9 % 10/12/2024 12:58 PM [facility] Lymphocyte % 17.7 % 10/12/2024 12:58 PM [facility] Monocyte % 4.7 % 10/12/2024 12:58 PM [facility] Eosinophil % 0.4 % 10/12/2024 12:58 PM [facility] Basophil % 0.5 % 10/12/2024 12:58 PM [facility] Neutrophil # 7.37 1.50 - 7.80 10*3/uL 10/12/2024 12:58 PM [facility] Immature Grans # 0.04(H) <=0.03 10*3/uL 10/12/2024 12:58 PM [facility] Lymphocyte # 1.70 0.85 - 3.90 10*3/uL 10/12/2024 12:58 PM EST [facility] CLINICAL PATHOLOGY LAB[facility] Monocyte # 0.50 0.20 - 0.95 10*3/uL 10/12/2024 12:58 PM EST [facility] Eosinophil # <0.03 0.02 - 0.50 10*3/uL 10/12/2024 12:58 PM EST [facility] PATH[facility] Basophil # 0.10 0.00 - 0.20 10*3/uL 10/12/2024 12:58 PM EST [facility] nRBC % 0.0 /100 WBCs 10/12/2024 12:58 PM EST [facility] nRBC # <0.01 <0.01 10*3/uL 10/12/2024 12:58 PM EST [facility] Blood Structure of peripheral vein / Unknown Venipuncture / Unknown 10/12/2024 11:59 AM EST 10/12/2024 12:38 PM EST us Gisell Aguilar INFORMATION SECURITY OFFICER LAB BLOOD ORDERABLES Final Resul t [facility] [address] [place] [address], * (ABNORMAL) Basic Metabolic Panel (10/12/2024 11:59 AM EST) NA 143 135 - 145 mmol/L 10/12/2024 1:26 PM EST [facility] K 4.9 3.5 - 5.3 mmol/L 10/12/2024 1:26 PM EST [facility] Cl 106 98 - 107 mmol/L 10/12/2024 1:26 PM EST [facility] CO2 24 22 - 32 mmol/L 10/12/2024 1:26 PM EST [facility] BUN 14 7 - 23 mg/dL 10/12/2024 1:26 PM EST [facility] Creatinine 0.88 0.50 - 1.20 mg/dL 10/12/2024 1:26 PM EST [facility] Glucose 122(H) 65 - 99 mg/dL 10/12/2024 1:26 PM EST [facility] Calcium 9.4 8.6 - 10.5 mg/dL 10/12/2024 1:26 PM EST [facility] Anion Gap 13 5 - 15 10/12/2024 1:26 PM EST [facility] eGFR 81 >=60 mL/min/1. 73m2 10/12/2024 1:26 PM EST [facility] Comment:The estimated glomer [...] 10/12/2024 12:38 PM EST us Gisell Aguilar INFORMATION SECURITY OFFICER LAB BLOOD ORDERABLES Final Resul t [facility] PATHOLOG[facility] [address] [place] [address], [place] from Last 3 Months Insurance [employer] Advance Directives * Presumed Full Code (Latest Code Status on File) Date Activated Date Inactivated Comments 10/27/2024 10:29 AM 10/27/2024 9:21 PM * Presumed Full Code Date Activated Date Inactivated Comments 08/04/2024 8:56 AM 08/04/2024 3:36 PM Care Teams Solar Sales Relationship Specialty Start Date End Date Caridad Louis MD [address] [place] [phone] PCP - General Internal Medicine 05/05/24
--- OUTSIDE RECORDS SUMMARY | 2025-01-07 07:40 | XMS_ITS | Encounter Summary ---
Author Organization [facility] Address [address] [place] [address] Care Team Providers Care Inside Barrel Lathe Operator Name Role Phone Caridad Louis MD Primary Care Provider [phone] Encounter Details Date Type Department Care Team (Late st Contact Info) Description 09/03/2024 [employer]soft Message [facility] Financial Counseling Department [address] [place] [phone] Mychart, Generic Provider [address] [place], [place] [id number] Financial Assistance Social History Tobacco Use Types Packs/Day Years Used Date Smoking Tobacco: Former Cigarettes 1 5 Q uit: 2005 Passive Smoke Exposure: Past Smokeless Tobacco: Never Alcohol Use Standard Drinks/Week Comments Not Currently 0 (1 standard drink = 0.6 oz pur e alcohol) Comments No Sex and Gender Information Value Date Recorded Sex Assigned at Female 05/05/2024 8:17 AM EDT Legal Sex Female 8:14 AM EDT Gender Identity Female 05/05/2024 8:17 AM EDT Sexual Orientation Straight 06/11/2024 10 :00 AM EDT documented as of this encounter Plan of Treatment Not on file documented as of this encounter Visit Diagnoses Not on filedocumented in this encounter Care Teams Inside Barrel Lathe Operator Relationship Specialty Start Date End Date Caridad Louis MD [address] [place] [address] PCP - General Internal Medicine 05/05/24 documented as of this encounter
--- OUTSIDE RECORDS SUMMARY | 2025-01-07 07:40 | XMS_ITS | Continuity of Care Document ---
Author Organization [facility] Address [address] [place] [address]- Care Team Providers Care Diamond Merchant Name Role Phone Caridad Louis MD Primary Care Physician [phone] Encounter [facility] [place] Date(s): 12/04/24 - 01/03/25 [facility] [address] [place], [place] [address] Encounter Diagnosis COVID-19 virus infection(Discharge Diagnosis) - 01/22/20 Leg cramp(Discharge Diagnosis) - 01/22/20 Asthma(Discharge Diagnosis) - 01/22/20 Attending Physician: Douglas Olvera Admitting Physician: Douglas Olvera Referring Physician: Admtr [id number] Encounter Type: Triage Allergies, Adverse Reactions, Alerts [...] diphtheria-tetanus toxoids (DT) 05/16/00 Given 1Result Comment: [facility] [id number] 2Result Comment: GIVEN @ [facility] 3Result Comment: [facility]# [id number] pt. tolerated inj. without complications....[place] 4Result Comment: [05/21/2018] [facility]# [id number] pt. tolerated inj. 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 Refills 0, Maintenance, as needed for pain, 3/20/25 12:50:00 PM EDT, Instructions Replace Required Details, Route to Pharmacy Electronically, [facility] #[id number] Tablet, Partial fill upon patient request if [...] Maintenance, 09/04/22 6:53:00 AM EST, [id number], 25, PLEASE SEE ATTACHED FOR DETAILED DIRECTIONS, [...] Refills, Maintenance, 12/01/24 4:30:00 PM EDT, Tablet, [facility] #[id number], 157, cm, 10/23/24 18:34:00 EST, Height, 161.2, [...] 4:59:00 PM EST, Route to Pharmacy Electronically, [facility] #[id number], Partial fill upon patient request if the [...] Refills, Maintenance, 09/23/24 2:53:00 PM EST, Gel, [facility] #[id number], Partial fill upon patient request if the [...] 0 Refills, Maintenance, 10/02/21 12:53:00 PM EST, [facility] #[id number], Partial fill upon patient request if the [...] Unit: each Repeat number: 12 nystatin topical 877508 u/gm powder 1 application, Topically, 2 times a day, # 60 Gm, 5 Refills, Maintenance, 01/18/23 3:57:00 PM EDT, Powder, [facility] #[id number], Partial fill upon patient request if the [...] Replace Required Details, Route to Pharmacy Electronically, [facility] #[id number], Partial fill upon patient request if the [...] 12:32:00 PM EDT, Route to Pharmacy Electronically, [facility] #[id number] Tablet, Partial fill upon patient request if [...] Refills, Maintenance, 02/04/23 10:33:00 AM EDT, Aerosol, [facility]/pharmacy #[id number], asthma j45.9, 157, cm, 02/04/23 10:16:00 [...] AM EDT, Aerosol, Route to Pharmacy Electronically, [id number], [facility]/pharmacy #[id number], 157, cm, 02/04/23 10:16:00 EDT, Height, [...] Refills, Maintenance, 07/27/24 12:41:00 PM EST, Solution, [facility] #[id number], Partial fill upon patient request if the [...] Refills, Maintenance, 08/06/24 1:30:00 PM EST, Ointment, [facility] #[id number], Partial fill upon patient request if the [...] gain following gastric bypass surgery Confirmed Active Diagnosis Diagnosis Type Effective Dates Health Status Cl inical Service Informant COVID-19 virus infection Discharge Diagnosis 01/22/20 Asthma Discharge Diagnosis 01/22/20 Leg cramp Discharge Diagnosis 01/22/20 Social History Social History Type Response Smoking Status Former smoker entered on: 05/30/15 Sex Female Sex Representation Female (finding) Note * Event Display: History and Physical, Non- Authored Date: * Event Display: History and Physical, Non-BH Authored Date: * Event Display: History and Physical, Non-BH Authored Date: * Event Display: History and Physical, Non-BH Authored Date: * Event Display: History and Physical, Non-BH Authored Date: Cardiology * Event Display: Cardiology Office Note, Non-BH Authored Date: * Event Display: [employer] Report Authored Date: * Event Display: Cardiovascular Result Scanned Authored Date: EKG study * Event Display: EKG Authored Date: Laboratory * Event Display: Non-BH Pathology Lab Results Authored Date: * Event Display: Non BH Lab Results Authored Date: * Event Display: Laboratory Result Scanned Authored Date: * Event Display: Laboratory Result Scanned Authored Date: Hospital Progress note * Cristian Ponce Graham DAVID: PERFORM, SIGN, VERIFY Event Display: Progress Note Hospital Authored Date: Patient: DIGNA QUAN Age: 39 years Sex: Female : 1975 Associated Diagnoses: None Author: [facility] DAVID [facility] Pt. seen. Dictation to follow. Pt. will contact [employer] employee assistance program for immediate help with adjusting to multiple losses and help finding and OP therapist. rec: 1. D/C Zoloft. 2., Start Celexa. 3. Can D/C home. Radiology * Event Display: X-Ray Abdomen, Non- BH Authored Date: * Event Display: X-Ray Chest, Non- BH Authored Date: * Event Display: Ultrasound Lower Extremity, Non-BH Authored Date: * Event Display: X-Ray Abdomen, Non- BH Authored Date: [id number] * Event Display: Non BH Radiology Results Authored Date: * Volodymyr Duron: PERFORM Event Display: Radiology Results Scanned Authored Date: [id number] * Sirena Albrecht: PERFORM Event Display: Radiology Results Scanned Authored Date: [id number] [place] Pelvis * Event Display: Ultrasound Pelvis Authored Date: Patient Care team information Care Team Personnel Name: Caitie Sinha RN Position: [facility] AMB Nurse Member Role: Primary Care Nurse Name: Shannan Winston RN Position: S RN Member Role: Primary Care Nurse Name: Caridad Louis MD Position: [facility] Physician - Primary Care Member Role: PCP Address: [address] [place] [address] Telecom: Name: Heather Zavala RN Position: [facility] SN RN Member Role: Primary Care Nurse Name: Jennifer Martinez RN Position: [facility] OB RN Member Role: Primary Care Nurse Name: Kristin Shaw RN Position: [facility] SN RN Member Role: Primary Care Nurse Name: Jo-Ann Glass RN Position: [facility] AMB Nurse Member Role: Primary Care Nurse Name: Desi Garcia RN Position: [facility] RN Member Role: Primary Care Nurse Name: Lolly Chapman RN Position: [facility] RN Member Role: Primary Care Nurse Name: Zhanna De Souza RN Position: [facility] SN RN Member Role: Primary Care Nurse Name: Allison Lundy RN Position: [facility] RN Member Role: Primary Care Nurse Care Team Related Persons Name: MERRICKCARTERDMTIRY MEIO Name: KIZZY QUAN Insurance Providers Guarantor name: [facility] Information #: 1 Payer: [employer] PPO Member Number: NA Policy Number: NA Group Number: NA
--- OUTSIDE RECORDS SUMMARY | 2025-01-07 07:41 | XMS_ITS | Data Portability ---
Author Organization [place] [facility] Address [address] [place] [id number] Care Team Providers Care Food Inspector Name Role Phone JOÃO PLUNKETT Primary Care Provider Assessment Encounter Date Assessment Date Assessment LastModified by Organization Details LastModified Time 06/11/2019 06/11/2019 Time On Scene with Patient: 00:30:47 43 year-old female with history of obesity, hypotension, asthma, who calls to her home for evaluation of possible low blood pressure. She has been having intermittent dizziness, weakness, fatigue, and not feeling herself. She usually feels like this and has to get IV fluids. She denies any fevers, chills. She has had intermittent nausea. She has gone to the daystay for IV fluids before. SHe is tolerating PO fluids and food. No shortness of breath, chest pain, palpitations, abdominal pain. She has the merena and has only occasional irregular spotting with it. No real menses for the past 4 years. hypotension, dehydration, anemia, electrolyte derangement Pt is alert and VSS are stable. No clinical evidence of dehydration or hypotension at this time. Labs done and unremarkable. Pt is reassured by this and will Follow up with her pCP as needed Not available 06/11/2019 16:13:44 Plan of Treatment Reminders Order Date Submit Date Provider Last Modified By Organization Details Last Modified Time Details Appointments None recorded. Lab BMP + ionized calcium, serum or plasma 019 [email or web address] [facility] - [facility], [address] [place] [address], [id number], 9 14:46:59 Referral None recorded. Procedures None recorded. Surgeries None recorded. Imaging None recorded. Medication Orders None recorded. Patient TargetsNo targets recorded. Patient Instructions Encounter Date Encounter Id Patient Instructions Last Modified By Organization Details Last Modified Time 06/11/2019 [id number] [facility] came to your home for evaluation of intermittent dizziness and feeling fatigued. You were concerned that your blood pressure was low. Your blood pressure is 132/82. Your heart rate is 68. We checked your blood here and it was unremarkable. You have been taking in fluids and eating. We did not give you IV fluids. You had intermittent nausea. We gave you zofran for your nausea. You should follow up with your PCP. You are seeing the mems integration engineer tomorrow for further evaluation of your blood pressure concerns. We did not give you any prescriptions. Thank you for your visit with [facility] today. We cannot always find the exact cause of your symptoms during your initial visit. Please follow up with your primary care provider or specialist within 12-24 hours within 24-48 hours to be rechecked or seek medical attention if your symptoms do not go away or get worse. If you develop any new or worsening symptoms and need after hours care, please go to nearest ER and/or call 911. If you have additional concerns or develop a change in your condition between 8am-10pm, please call [facility] at [phone] to help navigate your care. Not available 06/11/2019 14:46:59 Reason for Referral None Reported. Results Created Date Observation Date Name Description Value Unit Range Abnormal Flag Note LastModifiedBy Organization Detail LastModifiedTime 06/11/20 19 06/11/2019 BMP + ioniz ed calci um, serum or plasm a Na 142 mmol/ L 138-14 6 Not Available [facility] - [address] [place], [address], 06/11/2019 14:41:52 06/11/2006/11/2019 BMP + ioniz ed calci um, serum or plasm a K 3.9 mmol/ L 3.5-4. 9 Not Available [facility] - [address] [place], [address], 06/11/2019 14:41:52 06/11/2006/11/2019 BMP + ioniz ed calci um, serum or plasm a cL 108 mmol/ L 98-109 Not Available [facility] - Home [address] [place], [address], 06/11/2019 14:41:52 06/11/2006/11/2019 BMP + ioniz ed calci um, serum or plasm a ica 1.18 mmol/ L 1.12-1 .32 Not Available [facility] - Home [address] [place], [address], 06/11/2019 14:41:52 06/11/2006/11/2019 BMP + ioniz ed calci um, serum or plasm a TCO2 22 mmol/ L 24-29 Not Available [facility] - Home [address] [place], [address], 06/11/2019 14:41:52 06/11/2006/11/2019 BMP + ioniz ed calci um, serum or plasm a glu 160 mg/dL 70-105 Not Available [facility] - Home [address] [place], [address], 06/11/2019 14:41:52 06/11/2006/11/2019 BMP + ioniz ed calci um, serum or plasm a BUN 20 mg/dL 8-26 Not Available [facility] - Home [address] [place], [address], 06/11/2019 14:41:52 06/11/2006/11/2019 BMP + ioniz ed calci um, serum or plasm a crea 0.5 mg/dL .6-1.3 Not Available [facility] - Home [address] [place], [address], 06/11/2019 14:41:52 06/11/2006/11/2019 BMP + ioniz ed calci um, serum or plasm a HCT 37 %_pcv 38-51 Not Available Spr - Home [address] [place], [address], 06/11/2019 14:41:52 06/11/2006/11/2019 BMP + ioniz ed calci um, serum or plasm a Hb 12.6 g/dL 12-17 Not Available [facility] - Home [address], [place], [address], 06/11/2019 14:41:52 06/11/20 19 06/11/2019 BMP + ioniz ed calci um, serum or plasm a angap 17 mmol/ L 10- Not Available Spr - Home [address], [place], [address], 06/11/2019 14:41:52 Result Notes None recorded. Procedures Surgical History Date Name Laterality Status Provider Name and Address Organization Details Recorded Time 06/11/20 Venipuncture - completed MOISES HINTON NP [address] [place], [address], [place] [facility] 06/11/2019 14:41:40 Imaging Results None recorded. Procedure Notes None recorded. Medical Equipment None Reported. Allergies Allergen ID Allergen Name Allergen Category Reaction Reaction Severity Criticality Documentation Date Start Date Code Code System Note Provider Name and Address Organization Details Recorded Time 02596 Macrobid medicatio n other Not available Not available 06/11/2019 55643 1 RxNorm MOISES HINTON NP [address] [place], [address], [place] [facility] 9 14:28:29 Medications Name Sig Start Date Stop Date Status Note LastModified by Organization Details LastModified Time DuoNeb 0.5 mg-3 mg(2.5 mg base)/3 mL solution for nebulization Inhale 3 mL 4 times a day by nebulizatio n route. active Not Available Not Available No t Available fludrocortis one active Not Available Not Available Not Available Lamictal active Not Available Not Avai lable Not Available Abilify active Not Available Not Avail able Not Available ProAir HFA active Not Available Not Av ailable Not Available Vitals Date Recorded Oxygen saturation Oxygen saturation in Arterial blood by Pulse oximetry Heart rate Body temperature Respiratory rate Systolic blood pressure Diastolic blood pressure Provider Name and Address Organization Details Last Updated DateTime 9 98 % 98 % 68 /min 97.8 [degF] 16 /min 132 mm[Hg] 82 mm[Hg] Not Available [facility] 9 14:33:29 Social History Question Answer Notes LastModified by Organizat ion Details LastModified Time Tobacco Smoking Status Never Smoker MOISES HINTON NP [address] [place], [address], [place] [facility] 06/11/2019 14:31:22 What Was The Date Of Your Most Recent Tobacco Screening? 06/11/2019 Information not available 06/12/2019 Sex: Unknown Functional Status None recorded. Mental Status None recorded. Family History Nothing Reported. Medical History Condition Response Hypertension N Asthma Y High Cholesterol N Gynecological HistoryNo gynecological history recorded. Obstetrics History GPAL:G 0 P 0 0 0 0 Past Encounters Encounter ID Performer Location Encounter Start Date Encounter Closed Date Diagnosis/Indication Diagnosis SNOMED-CT Code Diagnosis ICD10 Code Diagnosis Note [id number] MOISES HINTON NP [facility] - HOME [address] [place] [address] 06/11/2019 14:25:37 06/11/2019 18:00:59 Dizziness 567717202 R42 Health Concerns Section Related Observation LastModified by Organization Detai ls LastModified Time None Recorded Concern Status LastModified by Organization Details LastModified Time None Recorded Advance Directives Directive None Recorded Payers Insurance Date Sequence Insurance Name Policy Number Policy Canales Covered Member ID Canales Member ID Guarantor Name 06/11/2019 1 [facility] Lisa Stellato [id number] Lisa Stellato 06/11/2019 1 *SELF PAY* Lisa Stellato [id number] Lisa Stellato 06/11/2019 1 [facility] Lisa Stellato [id number] Lisa Stellato Notes Date Note Type Note Provider Name and Address Organization Details Recorded Time 06/11/2019 text/html 43 year-old fema nicole with history of obesity, hypotension, asthma, who calls to her home for evaluation of possible low blood pressure. She has been having intermittent dizziness, weakness, fatigue, and not feeling herself. She usually feels like this and has to get IV fluids. She denies any fevers, chills. She has had intermittent nausea. She has gone to the daystay for IV fluids before. SHe is tolerating PO fluids and food. No shortness of breath, chest pain, palpitations, abdominal pain.She has the merena and has only occasional irregular spotting with it.No real menses for the past 4 years. MOISES HINTON NP [address], [place], [address], [place] [facility] 06/11/2019 16:13:47 OBGyn Episode No OBEpisode recorded.
--- OUTSIDE RECORDS SUMMARY | 2025-01-07 07:41 | XMS_ITS | Patient Health Record ---
Author Organization [facility] Address [address] [address] Care Team Providers Care Market Analyst Name Role Phone Caridad Louis Primary Care Provider Unavaila ble Allergies Allergen (clinical drug ingredient) Drug/Non Drug Allergy documented on EMR Reaction Allergy Type Onset Date Status adhesive bandage (uncoded) rash Allergy Active nitrofurantoin, macrocrystals / nitrofurantoin, monohydrate Macrobid breathing difficulty, itching Drug Allergy Active Pollen Pollen Unknown Allergy Active Non-steroidal anti-inflammatory agent (FN) NSAIDs severe gastritis Drug Allergy Active Reason For Referral No Information Medications Medication SIG (Take, Route, Frequency, Duration) Notes Start Date End Date Status clonazePAM 1 MG 1 tablet Orally Once a day Active Carafate 1 GM 1 tablet on an empty stomach Orally Twice a day Active Diflucan 150 MG 1 tablet Orally Active Clotrimazole 1 % 1 application Externally Twice a day Not-Taking lamoTRIgine 25 MG 1 tablet Orally Active Gabapentin 800 MG 1 capsule Orally Once a day 900MG Active Loperamide HCl 2 MG 1 tablet as needed Orally Four times a day Active Lasix 40 MG 1 tablet Orally Once a day Not-Taking Nasonex 50mcg Not-Taking Albuterol-Ipratropium Active Mirena (52 MG) 20 MCG/DAY as directed Intrauterine Active oxyCODONE-Acetaminoph en 5-325 MG 1 tablet as needed Orally every 6 hrs Active ProAir HFA 108 (90 Base) MCG/ACT 1 puff as needed Inhalation every 4 hrs Active NexIUM 40 MG 1 capsule Orally Once a day Active ARIPiprazole 20 MG 1 tablet Orally Once a day Active Vitamin B12 1000 MCG 1 tablet Orally Onc e a day Active Thiamine 100mg daily in AM Active Vitamin D3 125 MCG (5000 UT) as directed Orally Active Problems Problem Type SNOMED Code ICD Code Onset Dates Problem Status W/U Status Risk Notes Problem 126588807 Morbid (severe) obesity due to excess calories (E66.01) Active confirmed Problem 89453910790193538 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) Active confirmed Problem 86537243442003466 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) Active confirmed Problem 707341170 Body mass index [BMI] 50.0-59.9, adult (Z68.43) Active confirmed Plan Of Treatment No Information Insurance Providers Payer Name Payer Address Payer Phone Subscriber Number Group Number Insured Name Patient Relationship to Insured Coverage Start Date Coverage End Date [employer] [address] [address] [place] [address] [phone] [id number] Lisa Foss Self - patient is the insured Medical (General) History Medical History History ICD Code acid reflux acute back pain anxiety asthma bloating bradycardia cervical radiculopathy chest pain chondromalacia patellae + COVID-19 ( 3 times) depression fatigue flank pain foot pain heart murmur hematuria hiatal hernia gastric bypass hyperglycemia hyperplastic adenomatous polyp of stomac h hypothyroidism impaired fasting glucose iron deficiency anemia knee pain leg pain leg swelling LUQ pain mood disorder nausea neuropathy obstructive sleep apnea otitis media of left ear pneumonia rectovaginal fistula recurrent UTI seasonal allergic rhinitis severe obesity thrombocytopenia vaginal discharge weight gain following gastric bypass COVID vaccinated X 2 (Cuedd) and [address] (Cuedd) Surgical History Surgery Date(Month/Year) colonoscopy 08/24/2020, 11/27/2016, 04/03 013, 2007 esophagogastroduodenoscopy 10/24/2018, 0 02/20/2016 laparoscopic hiatal hernia repair 2017 upper GI endoscopy 05/23/2017 implantation of electric stimulator into bladder 2016 dilation and curettage and Mirena IUD pl acement 12/16/2015 exostectomy of the dorsal as pect of the left talus by Dr. Jorge Alberto Hilliard 03/01/2014 upper gastrointestinal endoscopy 012 laparoscopic cholecystectomy 06/02/2010 Susy-en-y gastric bypass 2000 right eye strabismus surgery for ? ambly opia 1980 bladder stimulator 10/2021 Hospitalization History Reason Date(Month/Year) asthma left foot surgery anal fistula hiatal hernia repair cholecystectomy gastric bypass
--- OUTSIDE RECORDS SUMMARY | 2025-01-07 07:41 | XMS_ITS | Encounter Summary ---
Author Organization [facility] Address [address] [place] [address] Care Team Providers Care Vending Machine Filler Name Role Phone Caridad Louis MD Primary Care Provider [phone] Encounter Details Date Type Department Care Team (Late st Contact Info) Description 12/02/2024 Semantifyhart Message [facility] [address] [place] [address] Concrete Building Assembler: Jerman Gaitan MD [address] [place] [address] Urine Social History Tobacco Use Types Packs/Day Years [...] on filedocumented in this encounter Care Teams Vending Machine Filler Relationship Specialty Start Date End Date Caridad Louis MD [address] [place] [address] PCP - General Internal Medicine 05/05/24 documented as of this encounter
--- OUTSIDE RECORDS SUMMARY | 2025-01-07 07:41 | XMS_ITS | Clinical Summary ---
Author Organization [facility] Address [address] [place] [address] Care Team Providers Care Product Design Specialist Name Role Phone Caridad Louis MD Primary Care Provider [phone] Surgical History Surgery Date Site/Laterality Comments COLONOSCOPY PROCEDURE: HISTORICAL COLONOSCOPY; COMMENT: 08/24/20, 11/27/16, 04/2013, 2007 ESOPHAGOGASTRODUODENOSCOPY 10/24/2018 PROCEDURE: NE ESOPHAGOGASTRODUODENOSCOPY TRANSORAL DIAGNOSTIC OTHER SURGICAL HISTORY 03/10/2018 PROCEDURE: NE RPR PARAESOPH HIATAL HERNIA W/LAPT W/O MESH OTHER SURGICAL HISTORY 05/23/2017 PROCEDURE: NE ENDOSCOPY UPPER SMALL INTESTINE BLADDER SURGERY 2016 PROCEDURE: HISTORICAL BLADDER SURGERY; COMMENT: Implantation of electronic stimulator ESOPHAGOGASTRODUODENOSCOPY 02/20/2016 PROCEDURE: NE ESOPHAGOGASTRODUODENOSCOPY TRANSORAL DIAGNOSTIC OTHER SURGICAL HISTORY 11/27/2016 PROCEDURE: NE ENDOSCOPY UPPER SMALL INTESTINE OTHER SURGICAL HISTORY 05/01/2012 PROCEDURE: NE EGD FLEXIBLE TRANSNASAL W/BIOPSY SINGLE/MULTIPLE CHOLECYSTECTOMY 06/02/2010 PROCEDURE: NE LAPAROSCOPY SURG CHOLECYSTECTOMY OTHER SURGICAL HISTORY 2000 PROCEDURE: NE LAPS GSTR RSTCV PX W/BYP ANDREW-EN-Y LIMB <150 CM EYE SURGERY 1979 Right PROCEDURE: HISTORICAL EYE SURGERY; COMMENT: Right eye strabismus surgery for amblyopia GASTRIC BYPASS PROCEDURE: NE GASTRIC RSTCV W/BYP W/SM INT RCNSTJ LIMIT ABSRPJ Medical History Medical History Date Comments Acid reflux DX:Acid reflux Acute back pain DX:Acute back pa in Anxiety DX:Anxiety Asthma exacerbation DX:Asthma ex acerbation Asthma, moderate persistent, poorly-controlled DX:Asthma, moderate persiste nt, poorly-controlled Bloating DX:Bloating Cervical radiculopathy DX:Cervic al radiculopathy Chondromalacia patellae DX:Chond romalacia patellae Covid-19 DX:COVID-19 Depression DX:Depression Fatigue DX:Fatigue Flank pain DX:Flank pain Foot pain DX:Foot pain Hematuria DX:Hematuria Hiatal hernia DX:Hiatal hernia History of gastric bypass DX:His tory of gastric bypass Hyperglycemia DX:Hyperglycemia Hyperplastic adenomatous polyp of stomach DX:Hyperplastic adenomatous polyp of stomach Hypothyroidism DX:Hypothyroidis m IFG (impaired fasting glucose) D X:IFG (impaired fasting glucose) Iron deficiency anemia DX:Iron d eficiency anemia Knee pain DX:Knee pain Leg pain DX:Leg pain Leg swelling DX:Leg swelling LUQ pain DX:LUQ pain Mood disorder ([facility] V24) DX:M ood disorder ([facility]) Nausea DX:Nausea Neuropathy DX:Neuropathy Obstructive sleep apnea DX:Obstr uctive sleep apnea Otitis media of left ear DX:Otit is media of left ear Pneumonia DX:Pneumonia Recurrent UTI DX:Recurrent UTI Seasonal allergic rhinitis DX:Se asonal allergic rhinitis Severe obesity ([facility] V24, [facility] V28) DX:Severe obesity ([facility]) Thrombocytopenia ([facility] V24) D X:Thrombocytopenia ([facility]) Vaginal discharge DX:Vaginal dis charge Weight gain following gastri c bypass surgery DX:Weight gain following gas tric bypass surgery Chest pain DX:Chest pain Non-cardiac chest pain DX:Non-ca rdiac chest pain Rectovaginal fistula DX:Rectovag inal fistula Low back pain DX:Low back pain Morbid obesity with BMI of 5 0.0-59.9, adult ([facility] V24, [facility] V28) DX:Morbid obesity wit h BMI of 50.0-59.9, adult ([facility]) Family History Medical History Relation Name Comments Seizures Brother Diabetes Father type 2 Coronary artery disease Maternal Grandfather Colon cancer Maternal Grandmother Hyperthyroidism Maternal Grandmother Lung cancer Maternal Grandmother COPD Mother Colon cancer Mother Hypertension Mother Lung cancer Mother Other: Kidney Disease Mother Bipolar disorder Sister Other: Congenital Heart Disease Sister Other: Hepatitis Sister Relation Name Status Comments Brother Father Maternal Grandfather Maternal Grandmother Mother Sister Social History Tobacco Use Types Packs/Day Years Used Date Smoking Tobacco: Former Cigarettes Alcohol Use Standard Drinks/Week Comments Yes 0 (1 standard drink = 0.6 oz pur e alcohol) Comments Unknown Sex and Gender Information Value Date Recorded Sex Assigned at Not on file Legal Sex Female 6:44 PM EST Gender Identity Not on file Sexual Orientation Not on file Obstetrics History Last Filed Vital Signs Vital Sign Reading Time Taken Comments Blood Pressure 140/90 09/25/2023 3:16 PM EST Pulse 61 09/25/2023 3:16 PM EST Temperature - - Respiratory Rate - - Oxygen Saturation - - Inhaled Oxygen Concentration - - Weight 145 kg (320 lb) 09/25/2023 3:16 PM EST Height 160 cm (5' 3 ) 09/25/2023 3:16 PM EST Body Mass Index 56.69 09/25/2023 3:16 PM EST Plan of Treatment Health Maintenance Due Date Last Done Comments Breast Cancer Screening 1974 Cervical Cancer Screening: Pap Smear 12/02/1995 Cholesterol Screening (Lipid Panel) 10/02/2019 Colorectal Cancer Screening: Colonoscopy 10/02/2019 Depression Screening 10/02/2019 HIV Screening 10/02/2019 Hepatitis C Screening 10/02/2019 Social Influencers of Health Screening 10/02/2019 COVID-19 Vaccine (4 - season) 2024 06/24/2021, 09/20/2020, 08/30/2020 Zoster Vaccines (1 of 2) 2024 Influenza Vaccine (Season Ended) 2025 06/21/2023, 06/12/2021, 06/04/2020, Additional history exists DTaP,Tdap,and Td Vaccines (4 - Td or Tdap) 12/20/2032 12/20/2022, 11/26/2011, 05/16/2000 Hepatitis B Vaccines Completed 11/04/2012, 05/08/2012, 04/10/2012 MMR Vaccines Aged Out 06/30/2014, 04/26/2014 No lo nger eligible based on patient's age to complete this topic Pneumococcal Vaccine: 50+ Years Completed 12/20/2022, 07/16/2017 Pneumococcal Vaccine: Pediatrics (0 to 5 Years) and At-Risk Patients (6 to 64 Years) Completed 12/20/2022, 07/16/2017 HIB Vaccines Aged Out No longer eligi ble based on patient's age to complete this topic HPV Vaccines Aged Out No longer eligi ble based on patient's age to complete this topic Hepatitis A Vaccines Aged Out No long er eligible based on patient's age to complete this topic IPV Vaccines Aged Out No longer eligi ble based on patient's age to complete this topic Meningococcal ACWY Vaccine Aged Out N o longer eligible based on patient's age to complete this topic Meningococcal B Vaccine Aged Out No l onger eligible based on patient's age to complete this topic RSV Immunization Patients Under 20 months Aged Out No longer eligible based on patient's age to complete this topic Varicella Vaccines Aged Out No longer eligible based on patient's age to complete this topic Care Teams Product Design Specialist Relationship Specialty Start Date End Date Caridad Louis MD [address] [place] [address] PCP - General Internal Medicine 08/28/21
--- OUTSIDE RECORDS SUMMARY | 2025-01-07 07:41 | XMS_ITS ---
Author Name [facility] Organization Unknown Encounters Encounter Type Encounter Reason Primary Diagnosis Location Date Ambulatory [facility] [place] 05/31/2023 Ambulatory [facility] [place] 03/28/2023 Ambulatory [facility] [place] 02/21/2023 Ambulatory [facility] [place] 01/17/2023 Ambulatory [facility] [place] 01/02/2023 Ambulatory [facility] [place] 12/19/2022 Ambulatory [facility] [place] 11/07/2022
--- OUTSIDE RECORDS SUMMARY | 2025-01-07 07:41 | XMS_ITS | Continuity of Care Document ---
Author Organization [facility] Address [address] [place] [address]- Care Team Providers Care Supervisor Pipelines Name Role Phone Caridad Louis MD Primary Care Physician Encounter [facility] Date(s): 12/02/24 - 01/01/25 [facility] [address] [place], [place] [address] Encounter Type: Triage Allergies, Adverse Reactions, Alerts [...] diphtheria-tetanus toxoids (DT) 05/16/00 Given 1Result Comment: [facility] [id number] 2Result Comment: GIVEN @ [facility] 3Result Comment: [facility]# [id number] pt. tolerated inj. without complications....[place] 4Result Comment: [05/21/2018] [facility]# [id number] pt. tolerated inj. 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 7Admin Note: SANOFI PASTEUR 8Admin Note: SANOFI PASTEUR 9Result Comment: [07/16/2017] given without incident......[facility]# [id number] 10Admin Note: 3rd Injection 11Admin Note: 2 [...] Replace Required Details, Route to Pharmacy Electronically, [facility] #[id number] Tablet, Partial fill upon patient request if [...] Maintenance, 09/04/22 6:53:00 AM EST, [id number], 25, PLEASE SEE ATTACHED FOR DETAILED DIRECTIONS, 157, cm, 08/16/22 13:37:00 EST, Height, 138.8, kg, 06/27/22 14:01:00 EDT, Dry Weight Start Date: 09/04/22 Status: Ordered Quantity: 8.5 Unit: each Repeat number: 1 albuterol-ipratropium 3 mg-0.5 mg/3 ml inhalation solution 3 mL, Inhalation, 4 times a day, PRN Wheezing/Shortness of Breath, # 180 mL, 11 Refills, Maintenance, 04/29/23 9:48:00 AM EDT, Solution, [facility]/pharmacy #[id number], Asthma J 45.90, 3 mL Inhalation [...] Refills, Maintenance, 12/01/24 4:30:00 PM EDT, Tablet, [facility] #[id number], 157, cm, 10/23/24 18:34:00 EST, Height, 161.2, [...] 4:59:00 PM EST, Route to Pharmacy Electronically, [facility] #[id number], Partial fill upon patient request if the [...] Refills, Maintenance, 09/23/24 2:53:00 PM EST, Gel, [facility] #[id number], Partial fill upon patient request if the [...] 0 Refills, Maintenance, 10/02/21 12:53:00 PM EST, [place], [facility] #[id number], Partial fill upon patient request if the [...] Unit: each Repeat number: 12 nystatin topical [id number] u/gm powder 1 application, Topically, 2 times a day, # 60 Gm, 5 Refills, Maintenance, 01/18/23 3:57:00 PM EDT, Powder, [facility] #[id number], Partial fill upon patient request if the [...] Replace Required Details, Route to Pharmacy Electronically, [facility] #[id number], Partial fill upon patient request if the [...] 12:32:00 PM EDT, Route to Pharmacy Electronically, [facility] #[id number] Tablet, Partial fill upon patient request if [...] Refills, Maintenance, 02/04/23 10:33:00 AM EDT, Aerosol, [facility]/pharmacy #[id number], asthma j45.9, 157, cm, 02/04/23 [...] AM EDT, Aerosol, Route to Pharmacy Electronically, [id number], [facility]/pharmacy #[id number], 157, cm, 02/04/23 10:16:00 EDT, [...] Refills, Maintenance, 07/27/24 12:41:00 PM EST, Solution, [facility] #[id number], Partial fill upon patient request if the [...] Refills, Maintenance, 08/06/24 1:30:00 PM EST, Ointment, [facility] #[id number], Partial fill upon patient request if the [...] Care Nurse Name: Shannan Winston RN Position: [facility] RN Member Role: Primary Care Nurse Name: Caridad Louis MD Position: [facility] Physician - Primary Care Member Role: PCP Address: [address] [place] [id number] Telecom: Name: Heather Zavala RN Position: [facility] [...] Care Nurse Care Team Related Persons Name: MERRICKDUSTY GALLO Name: KIZZY QUAN Insurance Providers Guarantor name: [facility] Plan Information #: 1 Payer: BLUE BENEFIT [employer] PPO Member Number: NA Policy Number: NA Group Number: NA
--- NOTE | 2025-01-07 07:57 | ECG_ITS ---
Test Reason : SYNCOPE Blood Pressure : */* mmHG Vent. Rate : 62 BPM Atrial Rate : 62 BPM P-R Int : 200 ms QRS Dur : 94 ms QT Int : 388 ms P-R-T Axes : 55 -18 -9 degrees QTcB Int : 393 ms Normal sinus rhythm Minimal voltage criteria for LVH, may be normal variant ( R in aVL ) Borderline ECG No previous ECGs available Referred By: Generic ED Physician Electronically Signed By: JAYLAN SIFUENTES
--- NOTE | 2025-01-07 08:07 | ED_ITS ---
HPI - General Adult General Chief complaint: Fall Stated complaint: [facility] Employee, fall Time Seen by Provider: 01/07/25 08:01 Source: patient Mode of arrival: wheelchair Limitations: no limitations History of Present Illness ED Provider: Esme Olivia PA-C HPI narrative: Patient is a 49 year old assigned female at with a history of bipolar disorder, asthma, GERD, and chronic back pain for which she has a spinal stimulator presenting to the emergency department today with right knee pain, right shoulder pain, and acute on chronic low back pain after a fall. Patient states that she was walking out of the elevator at work when she tripped and fell, landing on her right side. Patient denies any head strike or loss of consciousness. Patient denies any dizziness, lightheadedness, abdominal pain, nausea, vomiting, fever, chills, blurry vision, double vision, loss of vision, chest pain, difficulty breathing, shortness of breath, night sweats, pain with urination, increased urinary frequency, increased urinary urgency, blood in her urine or stool, syncope or a near syncopal episode, bowel incontinence, bladder incontinence, or any other complaints at this time. Associated symptoms: denies other symptoms Treatments prior to arrival: none Related Data Home Medications ?Medication ?Instructions ?Recorded ?Confirmed clonazepam 1 mg tablet 1 tab PO BID PRN Anxiety 08/17/20 07/28/24 aripiprazole 20 mg tablet 20 mg PO DAILY 12/13/23 07/28/24 oxycodone-acetaminophen 5 mg-325 1 - 2 tab PO BID PRN pain 12/13/23 07/28/24 mg tablet sertraline 50 mg tablet 50 mg PO DAILY 12/13/23 07/28/24 trazodone 50 mg tablet 50 mg PO BEDTIME insomnia 12/13/23 07/28/24 Previous Rx's ?Medication ?Instructions ?Recorded sucralfate 1 gram tablet (Carafate) 1 g PO QID 30 days #120 tabs 10/02/22 esomeprazole magnesium 40 mg 40 mg PO DAILY #90 caps 11/13/23 capsule,delayed release trimethobenzamide 300 mg capsule 300 mg PO Q6H PRN nausea and 11/19/23 vomiting #30 caps scopolamine base 1 mg over 3 days 1 patch transdermal Q3D PRN nausea 11/21/23 transdermal patch and vomiting #24 ea ondansetron 8 mg disintegrating 8 mg PO Q8H PRN nausea and 12/04/23 tablet vomiting #60 tabs lamotrigine 200 mg tablet 200 mg PO BID 30 days #60 tabs 01/02/24 pregabalin 100 mg capsule 100 mg PO TID 15 days #45 caps 01/02/24 diphenoxylate-atropine 2.5 1 tab PO BID PRN diarrhea #14 tabs 02/04/24 mg-0.025 mg tablet (Lomotil) Allergies Allergy/AdvReac Type Severity Reaction Status Date / Time nitrofurantoin Allergy Unknown respiratory Verified 01/07/25 07:16 [From MACROBID] symptoms NSAIDS (Non-Steroidal AdvReac Mild Stomach Verified 01/07/25 07:16 Anti-Inflamma issues Adhesive Tape Allergy Intermediate Hives Uncoded 02/20/23 12:51 SEASONAL ALLERGIES Allergy Intermediate respiratory Uncoded 02/20/23 12:51 symptoms Review of Systems Constitutional: Constitutional: Reports no additional constitutional complaints, Denies chills, Denies fever(s) and Denies night sweats Eyes: Eyes: Reports no additional eye complaints, Denies blurry vision, Denies change in vision, Denies diplopia, Denies eye discharge, Denies loss of vision and Denies eye pain ENT: Denies dizziness Cardiovascular: Cardiovascular: Reports no additional cardiovascular complaints, Denies chest pain, Denies lightheadedness, Denies Loss of Consciousness and Denies dyspnea Respiratory: Respiratory: Reports no additional respiratory complaints and Denies dyspnea Gastrointestinal: Gastrointestinal: Reports no additional gastrointestinal complaints, Denies abdominal pain, Denies melena, Denies hematochezia, Denies change in bowel habits and Denies change in stool character Genitourinary: Genitourinary: Denies hematuria, Denies urinary frequency, Denies dysuria, Denies urinary incontinence, Denies urinary hesitancy and Denies urinary urgency Musculoskeletal: Musculoskeletal: Reports no additional musculoskeletal complaints, Denies numbness and Denies tingling Comments: right knee pain right shoulder pain acute on chronic low back pain Neurologic: Denies dizziness, Denies loss of vision, Denies numbness and Denies tingling Psychiatric: Psychiatric: Reports no additional psychiatric complaints Endocrine: Endocrine: Reports no additional endocrine complaints Hematologic/Lymphatic: Hematologic/Lymphatic: Reports no additional hematologic/lymphatic complaints Allergic/Immunologic: Allergic/Immunologic: Reports no additional aller gic/immunologic complaints PMFSH Past Medical History Attestation statement: The following information was validated with the patient. Source: old records reviewed and nursing notes reviewed Medical History Urinary retention Obesity Recurrent UTI DARRIUS (obstructive sleep apnea) Neuropathy Hyperplastic adenomatous polyp of stomach Erosive esophagitis Chronic foot pain Chondromalacia patellae Cervical radiculopathy GERD (gastroesophageal reflux disease) Nausea & vomiting Skin ulcer of abdomen Asthma Encounter for insertion of mirena IUD DARRIUS on CPAP Urinary bladder disorder Hiatal hernia with GERD Rectovaginal fistula Contusion of right knee Gastritis Vomiting Heart murmur Bipolar depression Moderate asthma Surgical History H/O eye surgery S/P implantation of urinary electronic stimulator device H/O hernia repair History of esophagogastroduodenoscopy (EGD) History of open reduction and internal fixation (ORIF) procedure History of colonoscopy H/O dilation and curettage Hx laparoscopic cholecystectomy Gastric bypass status for obesity (~1999) Family History Family History Father Hx of type 1 diabetes mellitus Mother Hx of colon cancer, stage IV Social History Social History Household Members: Spouse Alcohol intake: current Alcohol intake frequency: does not drink Comment: RIGHT KNEE CONTUSION Patient Tobacco Use Status: Former Tobacco user Tobacco use type: Cigarette Smoked in Last 30 Days: No Second Hand Smoke Exposure: No Use of substances other than those prescribed or required for medical reasons: No Advance Directives: No Advance Directives Information Provided: Yes Do you have a plan to hurt others: No Plan Physical Exam ED Vital Signs: Vital Signs - 24 hr 01/07/25 07:13 01/07/25 09:12 Temperature 98.0 F 98.2 F Pulse Rate 72 84 Respiratory Rate 20 20 Blood Pressure 138/81 148/96 H Pulse Oximetry 99 96 Oxygen Delivery Method Room Air Room Air BMI result Body Mass Index 60.4 Const General: cooperative, no acute distress, alert and awake Nutritional Appearance: well nourished Orientation/consciousness: patient oriented x3 HENMT Head: Yes normal to inspection and Yes atraumatic Ears: hearing grossly normal bilaterally and external ears normal General nose exam: Normal external nose present, no nasal discharge noted and no epistaxis Face and sinus: Yes normal facial exam, No abrasion and No laceration Mouth: Normal oral and palatal mucosa present, no drooling and no muffled voice Eyes General: appearance normal, both eyes and all related structures Periorbital: periorbital findings normal Eyelids: Yes eyelids normal Conjunctivae: conjunctivae normal Pupils: Equal, round and reactive pupils present EOM: EOMs intact bilaterally Neck Neck: Yes normal visual inspection, Yes full ROM and Yes no lymphadenopathy Resp Effort & Inspection: normal respiratory effort and able to speak in complete sen tences Neuro General: patient oriented x3, moves all extremities and CN's II-XI intact bilaterally Cranial nerves: Yes Equal, round and reactive pupils present Cognition (Neuro): normal cognition Extrem General: Yes normal to inspection, Yes full ROM and Yes capillary refill normal Psych Appearance: grossly normal Mental Status: mental status grossly normal Affect: normal affect Attitude: cooperative Thought process: Normal thought process present Thought content: Normal thought content present Insight: Good insight present (Psych) Medical Decision Making Medical Decision Making MDM Narrative: Patient is a 49 year old assigned female at with a history of bipolar disorder, asthma, GERD, and chronic back pain for which she has a spinal stimulator presenting to the emergency department today with right knee pain, right shoulder pain, and acute on chronic low back pain after a fall. Patient's physical exam was unremarkable. Patient's EKG, ordered by RN, was unremarkable. Patient's right knee, right shoulder, and lumbar x-rays showed no acute process. I explained my physical exam findings as well as all test results to the patient. I answered all questions asked by the patient. I stressed the importance of the patient taking her medication as directed (either prescribed or as the over the counter packaging recommends). I stressed the importance of the patient following up with her primary care provider and [facility]. I stressed the importance of the patient returning to the emergency department immediately if her symptoms were to worsen or if she were to develop any dizziness, shortness of breath, difficulty breathing, chest pain, blurry vision, loss of vision, nausea, vomiting, abdominal pain, fever, chills, back pain, or any other complaints. Patient verbalized agreement and understanding with this treatment plan and discharge. Differential Diagnosis Differential Diagnoses: The differential diagnosis associated with the presentation includes Right shoulder pain Right knee pain Lumbar back pain Fall Admission/Observation Consideration of admission/observation: Escalation of care including admission/observation considered Patient would have been admitted to the hospital had her work up had any findings where hospital admission was appropriate and her clinical presentation warranted hospital admission. Independent Interpretation I performed an independent interpretation of an: EKG and Plain X-Ray Interpretation: My interpretation is in agreement with the radiologist's impression of these imaging studies. EXAMINATION: XR SHOULDER, RIGHT CLINICAL INFORMATION: fall COMPARISON: None available. TECHNIQUE: AP external rotation, Grashey, scapular Y, and axillary views of the right shoulder. FINDINGS: Study mildly limited by habitus and positioning. Normal bone mineralization. No fracture, dislocation, or suspicious bone lesion. Normal alignment. The glenohumeral joint demonstrate mild degenerative arthritis. Normal alignment. The AC joint demonstrates moderate degenerative arthritis with both moderate superior surface and mild undersurface spurring. There is a neutral lateral acromion. No undersurface spurring. The subacromial space is preserved. Remainder of the soft tissue and bony structures appear normal. XR/XR shoulder RT min 2V IMPRESSION: No acute bony abnormalities of the right shoulder. Electronically signed by: David Cardenas MD 01/07/2025 09:00 AM EDT Dictated By: David Cardenas MD Signed By: Electronically signed by David Cardenas MD 01/07/25 0900 EXAMINATION: XR LUMBOSACRAL SPINE CLINICAL INFORMATION: fall COMPARISON: None available. TECHNIQUE: AP and bilateral oblique views of the lumbar spine. The patient refused lateral projection or further imaging. FINDINGS: No scoliosis. Grossly normal lordosis on the oblique projections although without a lateral projection, comment cannot be made on sagittal alignment. No pars defects seen. Facets appear normally aligned. The disc spaces appear grossly maintained. No definite compression deformity or acute fractures seen given limitations. A right-sided spinal stimulator device is noted with lead extending into the left sacral region. There is an IUD present within the left para midline pelvis. The sacrum appears intact without definite sacral fracture. The SI joints appear grossly normal. Abundant soft tissues appear normal. XR/XR lumbar spine 4V min IMPRESSION: 1. Incomplete examination. Patient refused lateral projection and any further imaging. No acute bony abnormality identified. 2. Sacral stimulator device in place. Electronically signed by: David Cardenas MD 01/07/2025 09:04 AM [employer] Dictated By: David Cardenas MD Signed By: Electronically signed by David Cardenas MD 01/07/25 0904 EXAMINATION: XR KNEE 4 OR MORE VIEWS RIGHT HISTORY: fall COMPARISON: Comparison is made with the prior examination dated 07/28/2024. FINDINGS: Four views of the right knee are submitted. Osseous mineralization is normal. There is no fracture or dislocation. There is moderate tricompartmental osteoarthritis with joint space narrowing and osteophyte formation. The soft tissues are unremarkable. There is no joint effusion. XR/XR knee RT 4V IMPRESSION: Moderate tricompartmental osteoarthritis. Electronically signed by: Graham Welsh MD 01/07/2025 08:58 AM EDT Dictated By: Graham Welsh MD Signed By: Electronically signed by Graham Welsh MD 01/07/25 0858 I independently interpreted this EKG and am in agreement with the below findings: Vent. Rate: 62 BPM Atrial Rate: 62 BPM P-R Int: 200 ms QRS Dur: 94 ms QT Int: 388 ms P-R-T Axes: 55 -18 -9 degrees QTcB Int: 393 ms Normal sinus rhythm Minimal voltage criteria for LVH, may be normal variant ( R in aVL ) No previous ECGs available DD/ 0736 Radiology Impression Discussion of test interpretation with radiology: I have reviewed the radiologist's reading. Discharge Plan Discharge Clinical Impression: Acute knee pain, Lumbar back pain, Acute shoulder pain Patient Disposition: Home, Self-Care Instructions: Acute Low Back Pain (ED), Knee Pain (ED), Shoulder Pain (ED) Additional Instructions: Follow up with your primary care provider. Given this was a work place injury - you should also follow up with work connection. Return to the emergency department immediately if your symptoms worsen or if you develop any numbness, tingling, dizziness, shortness of breath, difficulty breathing, chest pain, blurry vision, loss of vision, nausea, vomiting, abdominal pain, fever, chills, back pain, or any other complaints. Please see the information below about our Patient Portal. If you are not yet enrolled in the [facility] Patient Portal, you will receive an enrollment email invitation following your visit to any [facility] setting. You may also self-enroll in the Patient Portal by visiting our website: [email or web address] The following information is required to access the Patient Portal: - Your [facility] Medical Record Number - Your personal home email address (must match what is in your electronic medical record, Registration staff can assist with this) - Name - Date of Capabilities of the Patient Portal: - Message some providers - View upcoming appointments - Access your health summary, medical history, and visit history - View current conditions and allergies - View procedure and lab results - View your medications, including guidelines, side effects, and precautions - Complete pre-appointment questionnaires requested by your provider - Ready summary reports of your office visits and procedures To access the Patient Portal Mobile Susan, follow these directions: - Search [employer] in the Susan Store or Google Dick or Bro Store - Download the Susan - Search for [facility] - Enter your login/password Prescriptions: No Action trimethobenzamide 300 mg capsule 300 mg PO Q6H PRN (Reason: nausea and vomiting) Qty: 30 1RF scopolamine base 1 mg over 3 days patch 3 day 1 patch transdermal Q3D PRN (Reason: nausea and vomiting) Qty: 24 0RF ondansetron 8 mg tablet,disintegrating 8 mg PO Q8H PRN (Reason: nausea and vomiting) Qty: 60 0RF diphenoxylate-atropine [Lomotil] 2.5-0.025 mg tablet 1 tab PO BID PRN (Reason: diarrhea) Qty: 14 0RF clonazepam 1 mg tablet 1 tab PO BID PRN (Reason: Anxiety) sucralfate [Carafate] 1 gram tablet 1 g PO QID 30 Days Qty: 120 3RF esomeprazole magnesium 40 mg capsule,delayed release(DR/EC) 40 mg PO DAILY Qty: 90 1RF Rx Instructions: open capsule and mix contents with apple sauce trazodone 50 mg tablet 50 mg PO BEDTIME Patient Comments: Patient reports she takes PRN. oxycodone-acetaminophen 5-325 mg tablet 1 - 2 tab PO BID PRN (Reason: pain) sertraline 50 mg Tablet 50 mg PO DAILY aripiprazole 20 mg tablet 20 mg PO DAILY lamotrigine 200 mg tablet 200 mg PO BID 30 Days Qty: 60 0RF pregabalin 100 mg capsule 100 mg PO TID 15 Days Qty: 45 0RF Referrals: [facility] [Provider Group] (Call to establish and follow up with [facility] given this was a workplace injury. ) Caridad Louis MD [Primary Care Provider] - Stand Alone Forms: Work/School Release Print Language: Samoan
[2025-01-07 09:12] VITALS: BP 148/96; PULSE 84; RESP 20; TEMP 36.8; O2SAT 96
[2025-01-07 09:18] VITALS: BP 148/96; PULSE 84; RESP 20; TEMP 36.8; O2SAT 96
== END 2025-01-07 09:18 | disposition home or self-care (01) ==
PROVIDERS: Emergency Provider Emergency Medicine Emergency Medical Services; PCP Internal Medicine
DX: Z04.2 Encounter for examination and observation following work accident (principal); M25.561 Pain in right knee; M25.511 Pain in right shoulder; M54.50 Low back pain, unspecified; R55 Syncope and collapse
CPT/HCPCS: 72110; 73030; 73564; 93005; 99283; 99284

== ENCOUNTER → 2025-01-07 07:57 | Outpatient (BNV) | payer OTHER, SELFPAY | PROVIDERS: Emergency Provider Emergency Medicine Emergency Medical Services; PCP Internal Medicine; Visit Provider Internal Medicine | DX: R55 Syncope and collapse (principal) | CPT/HCPCS: 93010 ==

== ENCOUNTER → 2025-01-07 07:58 | Outpatient (BNV) | payer OTHER, SELFPAY | PROVIDERS: Emergency Provider Emergency Medicine Emergency Medical Services; PCP Internal Medicine; Visit Provider Radiology Diagnostic Radiology | DX: Z96.82 Presence of neurostimulator (principal); M17.11 Unilateral primary osteoarthritis, right knee; M25.511 Pain in right shoulder; W19.XXXA Unspecified fall, initial encounter | CPT/HCPCS: 72110; 73030; 73564 ==

== ENCOUNTER → 2025-01-12 09:27 | Outpatient (BNVA) | payer OTHER, SELFPAY | PROVIDERS: PCP Internal Medicine; Visit Provider Registered Nurse | DX: Z13.89 Encounter for screening for other disorder (principal) | CPT/HCPCS: 99202 ==

== ENCOUNTER → 2025-01-15 11:09 | Outpatient (BNVA) | payer OTHER, SELFPAY | PROVIDERS: PCP Internal Medicine; Visit Provider Physician Assistant | DX: Z13.89 Encounter for screening for other disorder (principal) | CPT/HCPCS: 99213 ==

== ENCOUNTER → 2025-01-18 13:01 | Outpatient (BNVA) | payer OTHER, SELFPAY | PROVIDERS: PCP Internal Medicine; Visit Provider Physician Assistant Medical | DX: Z13.89 Encounter for screening for other disorder (principal) | CPT/HCPCS: 99213 ==

== ENCOUNTER 2025-02-03 06:23 | Outpatient (REF) | payer OTHER, SELFPAY ==
--- OUTSIDE RECORDS SUMMARY | 2025-02-03 06:26 | XMS_ITS | Encounter Summary ---
Author Organization [facility] Address [address] [place] [address] Care Team Providers Care Filter Tender Jelly Name Role Phone Caridad Louis MD Primary Care Provider [phone] Encounter Details Date Type Department Care Team (Late st Contact Info) Description 09/03/2024 Petta Message [facility] Financial Counseling Department [address] [place] [phone] Mychart, Generic Provider [address] [place], [place] [id number] Financial Assistance Social History Tobacco Use Types [...] on filedocumented in this encounter Care Teams Filter Tender Jelly Relationship Specialty Start Date End Date Caridad Louis MD [address] [place] [address] PCP - General Internal Medicine 05/05/24 documented as of this encounter
[2025-02-03 06:39] LABS: MANUAL DIFF FLAG NO
[2025-02-03 07:16] LABS: Basophils Percent Auto 0.3 % (0-2); Eosinophils Absolute Auto 0.1 X10*3/uL (0.0-0.4); Eosinophils Percent Auto 1.9 % (0-4); Hematocrit 40.6 % (37.0-47.0); Hemoglobin 12.9 g/dl (12.0-16.0); Imm Gran Abs Auto 0.03 X10*3/uL (0.00-0.03); Imm Gran Pct Auto 0.5 % (0.0-0.4); Lymphocytes Absolute Auto 1.9 X10*3/uL (1.2-4.9); Lymphocytes Percent Auto 30.6 % (20-40); Mean Corpuscular HGB Conc 31.8 g/dl (31.0-35.0); Mean Corpuscular Hemoglobin 27.2 pg (27.0-33.0); Mean Corpuscular Volume 85.7 fL (80.0-98.0); Mean Platelet Volume 10.5 fL (9.4-12.3); Monocytes Absolute Auto 0.4 X10*3/uL (0.1-1.2); Monocytes Percent Auto 6.8 % (2-11); Neutrophils Absolute Auto 3.7 x10*3/uL (2.0-8.3); Neutrophils Percent Auto 59.9 % (45-73); Platelet Count 178 X10*3/uL (160-400); Red Blood Count 4.74 X10*6/uL (4.20-5.50); Red Cell Distribution Width 13.7 % (11.0-16.0); White Blood Count 6.2 X10*3/uL (4.8-10.8)
[2025-02-03 07:56] LABS: Alanine Aminotransferase 28 U/L (0-31); Albumin Level 4.3 g/dL (3.5-5.0); Anion Gap 15 (12-20); Aspartate Amino Transferase 27 U/L (5-31); Bilirubin Total 0.5 mg/dL (0.0-1.0); Blood Urea Nitrogen 13 mg/dL (9-16); C Reactive Protein 0.94 mg/dL (< or = 0.50); Calcium 8.9 mg/dL (8.4-10.2); Carbon Dioxide 25 mmol/L (22-29); Chloride 110 mmol/L (96-108); Estimated Glomerular Filt Rate > 60; Glucose Random 109 mg/dL (60-115); Potassium 3.9 mmol/L (3.3-5.1); Sodium 146 mmol/L (135-145); Total Protein 7.3 g/dL (6.5-8.0)
[2025-02-03 13:06] LABS: Alkaline Phosphatase 99 U/L (39-117)
== END 2025-02-03 06:24 | disposition home or self-care (01) ==
LOC: HO.LAB 06:23
PROVIDERS: PCP Internal Medicine; Visit Provider Internal Medicine Gastroenterology
DX: R11.0 Nausea (principal); R10.11 Right upper quadrant pain; K75.81 Nonalcoholic steatohepatitis (NASH)
CPT/HCPCS: 36415; 80053; 85025; 86140

== ENCOUNTER → 2025-02-03 13:09 | Outpatient (BNVA) | payer OTHER, SELFPAY | PROVIDERS: PCP Internal Medicine; Visit Provider Physician Assistant | DX: Z13.89 Encounter for screening for other disorder (principal) | CPT/HCPCS: 99213 ==

== ENCOUNTER 2025-02-11 11:08 | Day surgery (SDC) | payer OTHER, SELFPAY ==
--- OUTSIDE RECORDS SUMMARY | 2025-02-09 14:08 | XMS_ITS | Encounter Summary ---
Author Organization [facility] Address [address] [place] [address] Care Team Providers Care Area Captain Name Role Phone Caridad Louis MD Primary Care Provider [phone] Encounter Details Date Type Department Care Team (Late st Contact Info) Description 09/03/2024 Knee Creations Message [facility] Financial Counseling Department [address] [place] [phone] Mychart, Generic Provider [address] [place], [place] [id number] Financial Assistance Social History Tobacco Use Types [...] on filedocumented in this encounter Care Teams Area Captain Relationship Specialty Start Date End Date Caridad Louis MD [address] [place] [address] PCP - General Internal Medicine 05/05/24 documented as of this encounter
--- NOTE | 2025-02-10 09:01 | HO.ANESPROP2 ---
Documented by User: Candi Fontana NP 02/10/25 09:05 HPI - Anesthesia Eval Consult details Narrative: 49yo F for Upper Endoscopy No recent BMI documented - last 60.4 Bladder stim in situ PMFSH Active Problems Active Problems: All Active Problems Osteoarthritis of right knee (Acute) Osteoarthritis of left knee (Acute) Right knee pain (Acute) Left knee pain (Acute) Other mixed anxiety disorders (Acute) Bipolar affective, depress, unspec (Acute) Nausea (Acute) (Acute) Colovesical fistula (Acute) Colovaginal fistula (Acute) RUQ pain (Acute) Diarrhea (Acute) LUQ pain (Acute) Past Medical History Medical History Urinary retention Obesity Recurrent UTI DARRIUS (obstructive sleep apnea) Neuropathy Hyperplastic adenomatous polyp of stomach Erosive esophagitis Chronic foot pain Chondromalacia patellae Cervical radiculopathy GERD (gastroesophageal reflux disease) Nausea & vomiting Skin ulcer of abdomen Asthma Encounter for insertion of mirena IUD DARRIUS on CPAP Urinary bladder disorder Hiatal hernia with GERD Rectovaginal fistula Contusion of right knee Gastritis Vomiting Heart murmur Bipolar depression Moderate asthma Family History Family History Father Hx of type 1 diabetes mellitus Mother Hx of colon cancer, stage IV Family history of problems with anesthesia: No Surgical History Surgical History H/O eye surgery S/P implantation of urinary electronic stimulator device H/O hernia repair History of esophagogastroduodenoscopy (EGD) History of open reduction and internal fixation (ORIF) procedure History of colonoscopy H/O dilation and curettage Hx laparoscopic cholecystectomy Gastric bypass status for obesity (~1999) History of Problems with Anesthesia: No Social History Social History Household Members: Spouse Are you a primary respiratory care specialist to a significant other at home: No Do you presently have visiting nurse or other home services: No Alcohol intake: current Alcohol intake frequency: does not drink Comment: RIGHT KNEE CONTUSION Patient Tobacco Use Status: Former Tobacco user Tobacco use type: Cigarette Second Hand Smoke Exposure: No Have you been hit, kicked, punched, or otherwise hurt by someone within the past year? If so, by whom?: No Are you DNR?: No Advance Directives: No Advance Directives Information Provided: Yes Poor oral hygiene: No Meds Allergies Allergy/AdvReac Type Severity Reaction Status Date / Time nitrofurantoin Allergy Unknown respiratory Verified 02/11/25 11:58 [From MACROBID] symptoms NSAIDS (Non-Steroidal AdvReac Mild Stomach Verified 02/11/25 11:58 Anti-Inflamma issues Adhesive Tape Allergy Intermediate Hives Uncoded 02/11/25 11:58 SEASONAL ALLERGIES Allergy Intermediate respiratory Uncoded 02/11/25 11:58 symptoms Home Medications ?Medication ?Instructions ?Recorded ?Confirmed ?Last Taken ?Type clonazepam 1 mg tablet 1 tab PO BID PRN Anxiety 08/17/20 02/11/25 12/13/23 06:30 History aripiprazole 20 mg tablet 20 mg PO DAILY 12/13/23 02/11/25 12/13/23 06:30 History sertraline 50 mg tablet 50 mg PO DAILY 12/13/23 02/11/25 12/13/23 06:30 History trazodone 50 mg tablet 50 mg PO BEDTIME insomnia 12/13/23 02/11/25 Unknown History albuterol sulfate 90 mcg/actuation inhalation 02/11/25 02/11/25 02/11/25 History aerosol inhaler Exam Pertinent Lab Results Pertinent Lab Results: Laboratory Tests 02/03/25 06:36 WBC 6.2 Hgb 12.9 Hct 40.6 Plt Count 178 Sodium 146 H Potassium 3.9 Chloride 110 H Carbon Dioxide 25 BUN 13 Creatinine 0.74 Narrative Narrative: EKG 12/2024 Vent. Rate : 62 BPM Atrial Rate : 62 BPM P-R Int : 200 ms QRS Dur : 94 ms QT Int : 388 ms P-R-T Axes : 55 -18 -9 degrees QTcB Int : 393 ms Normal sinus rhythm Minimal voltage criteria for LVH, may be normal variant ( R in aVL ) Borderline ECG No previous ECGs available Assessment and Plan Assessment Anesthesia Assessment: Chart Reviewed Final Anesthetic Review Family History of Problems with Anesthesia: No History of Problems with Anesthesia: No Documented by User: Clifford Toussaint MD 02/11/25 12:14 [facility] Past Medical History Medical History Urinary retention Obesity Recurrent UTI DARRIUS (obstructive sleep apnea) Neuropathy Hyperplastic adenomatous polyp of stomach Erosive esophagitis Chronic foot pain Chondromalacia patellae Cervical radiculopathy GERD (gastroesophageal reflux disease) Nausea & vomiting Skin ulcer of abdomen Asthma Encounter for insertion of mirena IUD DARRIUS on CPAP Urinary bladder disorder Hiatal hernia with GERD Rectovaginal fistula Contusion of right knee Gastritis Vomiting Heart murmur Bipolar depression Moderate asthma Functional capacity: independent ambulation Patient : No Family History Family History Father Hx of type 1 diabetes mellitus Mother Hx of colon cancer, stage IV Surgical History Surgical History H/O eye surgery S/P implantation of urinary electronic stimulator device H/O hernia repair History of esophagogastroduodenoscopy (EGD) History of open reduction and internal fixation (ORIF) procedure History of colonoscopy H/O dilation and curettage Hx laparoscopic cholecystectomy Gastric bypass status for obesity (~1999) Social History Social History Household Members: Spouse Are you a primary respiratory care specialist to a significant other at home: No Do you presently have visiting nurse or other home services: No Alcohol intake: current Alcohol intake frequency: does not drink Comment: RIGHT KNEE CONTUSION Patient Tobacco Use Status: Former Tobacco user Tobacco use type: Cigarette Second Hand Smoke Exposure: No Have you been hit, kicked, punched, or otherwise hurt by someone within the past year? If so, by whom?: No Are you DNR?: No Advance Directives: No Advance Directives Information Provided: Yes Poor oral hygiene: No Meds Allergies Allergy/AdvReac Type Severity Reaction Status Date / Time nitrofurantoin Allergy Unknown respiratory Verified 02/11/25 11:58 [From MACROBID] symptoms NSAIDS (Non-Steroidal AdvReac Mild Stomach Verified 02/11/25 11:58 Anti-Inflamma issues Adhesive Tape Allergy Intermediate Hives Uncoded 02/11/25 11:58 SEASONAL ALLERGIES Allergy Intermediate respiratory Uncoded 02/11/25 11:58 symptoms Home Medications ?Medication ?Instructions ?Recorded ?Confirmed ?Last Taken ?Type clonazepam 1 mg tablet 1 tab PO BID PRN Anxiety 08/17/20 02/11/25 12/13/23 06:30 History aripiprazole 20 mg tablet 20 mg PO DAILY 12/13/23 02/11/25 12/13/23 06:30 History sertraline 50 mg tablet 50 mg PO DAILY 12/13/23 02/11/25 12/13/23 06:30 History trazodone 50 mg tablet 50 mg PO BEDTIME insomnia 12/13/23 02/11/25 Unknown History albuterol sulfate 90 mcg/actuation inhalation 02/11/25 02/11/25 02/11/25 History aerosol inhaler Exam Airway TM Dist: >3cm Neck ROM: Full Loose/Missing/Broken Teeth: No Heart: RRR Lungs: CTA Assessment and Plan Final Anesthetic Review ASA Class: III Procedure Risk: Low Anesthetic Plan Anesthetic Plan: GA Disposition: Standard PACU
[2025-02-11 11:27] VITALS: BMI 59.1
[2025-02-11] MEDS: Lactated Ringers 1,000 ML 100 ML IVCONT (11:30)
--- NOTE | 2025-02-11 11:37 | MHC.SHP ---
Pre-Procedural Eval Section A - 24 Hr Update-Section A only Date of Service: 02/11/25 Section B - Complete if H&P > 30 days Chief Complaint: Generalized abdominal pain,nausea Relevant Family History (Specify if Yes): No Relevant Social History: None Present Medications: see Short Stay Collaborative assessment Medical History: Significant History (Asthma Bipolar depression Contusion of right knee Encounter for insertion of mirena IUD Gastritis Heart murmur Hiatal hernia with GERD Moderate asthma DARRIUS on CPAP Rectovaginal fistula Urinary bladder disorder Vomiting) History of Previous Operations: Relevant previous surgery/procedure and date(s) (Gastric bypass status for obesity (~1999) H/O dilation and curettage History of colonoscopy History of esophagogastroduodenoscopy (EGD) History of open reduction and internal fixation (ORIF) procedure Hx laparoscopic cholecystectomy) Allergies: Allergies Allergy/AdvReac Type Severity Reaction Status Date / Time nitrofurantoin Allergy Unknown respiratory Verified 01/07/25 07:16 [From MACROBID] symptoms NSAIDS (Non-Steroidal AdvReac Mild Stomach Verified 01/07/25 07:16 Anti-Inflamma issues Adhesive Tape Allergy Intermediate Hives Uncoded 02/20/23 12:51 SEASONAL ALLERGIES Allergy Intermediate respiratory Uncoded 02/20/23 12:51 symptoms Review of Systems Sugical H&P ROS: Negative: Constitution, Cardiovascular, Respiratory, Neurological, Psychiatric, Hem-Onc, Allergic/Immunologic, Gastrointestinal, Genitourinary, Musculoskeletal, Integumentary, Endocrine and Eyes/Ears/Nose/Throat Exam Surgical H&P Exam: Normal: HEENT, Normal: Heart, Normal: Lungs, Normal: Extremities, Normal: Abdomen, Normal: Skin and Normal: Neurological Plan Diagnosis/Plan: Unchanged I have reviewed the history and physical and performed a pertinent physical examination on my patient. No changes have occurred unless specified. EGD fro abdo pain and nausea Time Spent With Patient Time: Total time managing care of this patient today ____ minutes.
[2025-02-11 11:54] VITALS: BP 144/90; PULSE 90; RESP 18; TEMP 36.7; O2SAT 96
[2025-02-11 12:19] LABS: HCG Quantitative < 2 mIU/mL
--- NOTE | 2025-02-11 13:07 | W.PM.OPN ---
Operative Note Operative Note Date of Service: 02/11/25 Narrative: Procedure Description: EGD Indication: nausea and abdominal pain Anesthesia: MAC FLEXIBLE TRANSORAL UPPER GASTROINTESTINAL ENDOSCOPY UPPER ENDOSCOPY Consent: Indications for the procedure and potential complications of bleeding, perforation, reaction to medications and missed diagnosis were discussed with the patient and informed consent was obtained. Instrument: Olympus GIF H 190 J mid size upper endoscope Monitoring: Vital signs and clinical assessment, continuous EKG monitoring, Pulse oximetry, Carbon Dioxide monitoring and blood pressure monitoring were done throughout the procedure. Procedure: The patient was placed in the left lateral decubitis position and pre-procedure medications were administered and a bite block was placed. The endoscope was inserted into the mouth and advanced under direct vision to the Jejunum. A careful inspection was made as the upper endoscope was withdrawn including a retroflexed examination of the proximal stomach; Findings and interventions are described below. Findings: Larynx:normal Esophagus: GE junction at 36 cm, diaphragm hiatus at 36 cm, mild esophagitis at GEJ, bx taken from GEJ, and distal, proximal esophagus Stomach pouch: granular appearance, pouch seemed pretty long . Biopsies were obtained. Grade 3 flap valve on retroflexed examination of the cardia. Lumpy Granulation tissue around the gastro jejunal junction, bx taken -mild erythema noted --also there was an angulation at the anastomosis from the pouch to the jejunum as noted before. there was reduced motility of the pouch as well. Jejunum: Normal -bx taken --there appeared to be reduced motility Intervention: Biopsies as noted above, Impression/Findings: esophagitis patulous GEJ mild gastritis possible dysmotility PLAN: cont with PPI, carafate, 5 d of azithromycin for pro motility effect CT scan with PO contrast if neg bx GERD precautions
[2025-02-11 13:20] VITALS: BP 145/92; PULSE 92; RESP 20; TEMP 36.5; O2SAT 94
[2025-02-11 13:25] VITALS: BP 131/74; PULSE 89; RESP 20; O2SAT 94
[2025-02-11 13:30] VITALS: BP 122/79; PULSE 91; RESP 20; O2SAT 94
[2025-02-11 13:35] VITALS: BP 132/78; PULSE 87; RESP 20; O2SAT 94
[2025-02-11 13:50] VITALS: BP 123/87; PULSE 86; RESP 18; O2SAT 94
== END 2025-02-11 14:32 | disposition home or self-care (01) ==
PROVIDERS: PCP Internal Medicine; Visit Provider Internal Medicine Gastroenterology
PROC: 0DJ08ZZ Inspection of Upper Intestinal Tract, Via Natural or Artificial Opening Endoscopic (ICD-10-PCS; CPT 43235; principal; 2025-02-11 15:10)
DX: R10.84 Generalized abdominal pain (principal); R11.0 Nausea; K29.30 Chronic superficial gastritis without bleeding; K20.80 Other esophagitis without bleeding; K22.89 Other specified disease of esophagus; K44.9 Diaphragmatic hernia without obstruction or gangrene; K21.9 Gastro-esophageal reflux disease without esophagitis; K31.7 Polyp of stomach and duodenum; Z87.19 Personal history of other diseases of the digestive system; Z98.0 Intestinal bypass and anastomosis status; J45.909 Unspecified asthma, uncomplicated; R01.1 Cardiac murmur, unspecified; G47.33 Obstructive sleep apnea (adult) (pediatric); E03.9 Hypothyroidism, unspecified; F31.9 Bipolar disorder, unspecified; R33.9 Retention of urine, unspecified; Z96.82 Presence of neurostimulator; Z79.899 Other long term (current) drug therapy; Z99.89 Dependence on other enabling machines and devices; L23.1 Allergic contact dermatitis due to adhesives; Z88.6 Allergy status to analgesic agent; Z88.8 Allergy status to other drugs, medicaments and biological substances; Z90.49 Acquired absence of other specified parts of digestive tract; Z98.84 Bariatric surgery status; Z98.890 Other specified postprocedural states; Z87.891 Personal history of nicotine dependence
CPT/HCPCS: 43239; 36415; 84702; 88305; 88313; 88342; J0330; J2003; J2704; J3010

== ENCOUNTER → 2025-02-11 11:08 | Outpatient (BNV) | payer OTHER, SELFPAY | PROVIDERS: PCP Internal Medicine; Visit Provider Internal Medicine Gastroenterology | DX: R10.84 Generalized abdominal pain (principal); K20.90 Esophagitis, unspecified without bleeding; K22.89 Other specified disease of esophagus; K29.70 Gastritis, unspecified, without bleeding | CPT/HCPCS: 43239 ==

== ENCOUNTER 2025-02-16 10:46 | Outpatient (RCR) | payer OTHER, SELFPAY ==
--- NOTE | 2025-02-16 11:50 | MHC.PT.EP ---
[facility] [place] Office [place] Office [place] Office [address] Bubba Celaya [address] [phone] F: [phone] F: [phone] F: [phone] F: [phone] Physical Therapy Plan of Care Date of Evaluation: 02/16/25 Date of Surgery: Diagnosis: R shoulder strain (?frozen) Assessment: 49 y/o female referred to PT with R shoulder strain on 01/07/25 from work connection with ?frozen shoulder. 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 Currently reporting difficulty with reaching, driving, turning head, lifting, carrying and reaching behind back. Examination shows decreased cervical and R shoulder ROM, decreased R shoulder strength, pain, and impaired postural awareness. Recommend PT 2x/week for 4 weeks to address impairments, implement HEP, and optimize functional mobility. Frequency and Duration: The patient will be seen 2x/week for 4 weeks Short Term Goals: 2 weeks I with HEP Improve R shoulder flexion to 120 Retirement Goals: 4 weeks I with HEP and self management of sx pt will be able to reach overhead into cabinet with pain < 3/10 Pt will be able to carry 10# in R hand with pain <3/10 Treatment Plan: Modalities to reduce pain, spasms and effusion. Manual therapy to restore motion and function. Therapeutic exercise to improve strength and flexibility. Neuromuscular re-education for posture and balance. Therapeutic activities to return to functional activities of daily living. Electronically signed by: Veena King PT Please sign and return to therapist. Thank you for your referral.
--- NOTE | 2025-03-22 09:34 | MHC.PT.DC ---
[facility] [place] [facility] [place] [facility] [place] [facility] [address] Bubba Celaya [address] [phone] F: [phone] F: [phone] F: [phone] F: [phone] Physical Therapy Discharge Report Diagnosis: R shoulder strain (?frozen) Date of Surgery: Date of Evaluation: 02/16/25 Date of Discharge: 03/22/25 Treatments to Date: 1 Cancellations to Date: 6 No Shows to Date: 0 Discharge Status: Visit Non-compliance Discharge Summary: Pt cancelled 6 appointments consecutively. Attendance policy was reviewed following 4 cancellations on phone however pt cancelled last visit and therefore d/c at this time as it has been greater than 30 days since initial evaluation. Electronically signed by: Veena King PT Please sign and return to therapist. Thank you for your referral.
== END 2025-03-22 09:35 | disposition home or self-care (01) ==
LOC: HO.PT 10:46
PROVIDERS: PCP Internal Medicine; Visit Provider Physician Assistant
DX: S46.911D Strain of unspecified muscle, fascia and tendon at shoulder and upper arm level, right arm, subsequent encounter (principal)
CPT/HCPCS: 97110; 97161

== ENCOUNTER → 2025-02-24 11:57 | Outpatient (BNVA) | payer OTHER, SELFPAY | PROVIDERS: PCP Internal Medicine; Visit Provider Physician Assistant | DX: Z13.89 Encounter for screening for other disorder (principal) | CPT/HCPCS: 99213 ==

== ENCOUNTER 2025-03-08 15:15 | Emergency (ER) | payer OTHER, SELFPAY ==
--- OUTSIDE RECORDS SUMMARY | 2025-03-04 23:59 | XMS_ITS | Continuity of Care Document ---
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 [id number] 2Result Comment: GIVEN @ [facility] 3Result Comment: [facility]# [id number] pt. tolerated inj. without complications....[place] 4Result Comment: [05/21/2018] [facility]# [id number] pt. tolerated inj. without complications....[place] 5Result Comment: [07/09/2016] [employer] [facility] employee 6Admin Note: done at [employer] doctor 7Admin Note: SANOFI PASTEUR 8Admin Note: SANOFI PASTEUR 9Result Comment: [07/16/2017] given without incident......vb [facility]# [id number] 10Admin Note: 3rd Injection 11Admin Note: 2 INJECTION 12Admin Note: Injection: 1 Medications acetaminophen-oxyCODONE 325 mg-5 mg oral tablet See Instructions, PRN, 1-2 tablet By Mouth TWICE DAILY NEEDED ok to pay out of pocket until PA is approved fill when due, # 28 tablet, Refills 0, Tot. Refills 0, Maintenance, as needed for pain, 03/02/25 12:03:00 PM EDT, Instructions Replace Required Details, Route to Pharmacy Electronically, [facility] #[id number] Tablet, Partial fill upon patient request if the prescription is for a schedule II opioid drug. fill when due; ok to pay out of pocket until PA is approved, fill when due, 158.5, cm, 01/20/25 11:18:00 EDT, Height, 160.1, kg, 01/13/25 10:58:00 EDT, Dry Weight Start Date: 03/02/25 Status: Ordered Quantity: 28.0 Unit: tablet Repeat number: 1 Albuterol (Eqv-ProAir HFA) 90 mcg/inh inhalation aerosol 2 inhalation = 180 mcg, Inhalation, Every 6 hours, # 18 Gm, 11 Refills, Maintenance, 01/07/25 2:01:00PM EDT, [facility] #[id number], 2 inhalation Inhalation Every 6 hours, 157, cm, 12/04/24 15:00:00 EDT, Height, 162.5, kg, 12/04/24 15:00:00 EDT, Dry Weight Start Date: 01/07/25 Status: Ordered Quantity: 18.0 Unit: g Repeat number: 12 albuterol-ipratropium 3 mg-0.5 mg/3 ml inhalation solution [...] Quantity: 1.0 Unit: each Repeat number: 1 Indications: Obstructive sleep apnea (adult) (pediatric); clonazePAM 1 mg oral tablet 1 tablet = 1 mg, By Mouth, 2 times a day, PRN Anxiety, fill when due, # 28 tablet, 1 Refills, Maintenance, 12/01/24 4:30:00 PM EDT, Tablet, [email or web address] #[id number], 157, cm, 10/23/24 18:34:00 EST, Height, 161.2, kg, 10/23/24 11:54:00 EST, Dry Weight Start Date: 12/01/24 Stop Date: 12/29/24 Status: Ordered Quantity: 28.0 Unit: tablet Repeat number: 2 cloNIDine 0.1 mg oral tablet 0.1 mg, 1, tablet, By Mouth, Daily at supper, # 30 tablet, Refills 2, Tot. Refills 2, Maintenance, 01/20/25 3:38:00 PM EDT, Route to Pharmacy Electronically, [facility] #[id number], Partial fill upon patient request if the prescription is for a schedule II opioid drug., 158.5, cm, 01/20/25 11:18 :00 EDT, Height, 160.1, kg, 01/13/25 10:58:00 EDT, Dry Weight Start Date: 01/20/25 Status: Ordered Quantity: 30.0 Unit: tablet Repeat number: 3 CPAP Equipment Maintenance, 10/14/19 3:16:00 PM EST, [...] Date: 12/20/22 Status: Ordered Repeat number: 1 furosemide 20 mg oral tablet 20 mg, 1, tablet, By Mouth, Daily, PRN, # 30 tablet, Refills 0, Tot. Refills 0, Maintenance, leg swelling, 01/13/25 11:43:00 AM EDT, Route to Pharmacy Electronically, [facility] #[id number], Partial fill upon patient request if the prescription is for a schedule II opioid drug., 158.5, cm, 01/13/25 11:42:00 EDT, Height, 160.1, kg, 01/13/25 10:58:00 EDT, Dry Weight Start Date: 01/13/25 Status: Ordered Quantity: 30.0 Unit: tablet Repeat number: 1 Juxta Fit Compression Wraps [...] 4:59:00 PM EST, [id number], Partial fill upon patient request if the [...] Refills, Maintenance, 09/23/24 2:53:00 PM EST, Gel, [facility] #[id number], Partial fill upon patient request if the [...] 0 Refills, Maintenance, 10/02/21 12:53:00 PM EST, [place], [facility] #[id number], Partial fill upon patient request if the [...] Unit: each Repeat number: 12 nystatin topical [id number] u/gm powder 1 application, Topically, 2 times a day, # 60 Gm, 5 Refills, Maintenance, 01/18/23 3:57:00 PM EDT, Powder, [facility] #[id number], Partial fill upon patient request if the prescription is for a schedule II opioid drug., 1 application Topically 2 times a day, 157, cm, 12/20/22 8:47:00 EDT, Height, 138.8, kg, 06/27/22 14:01:00 EDT, Dry Weight Start Date: 01/18/23 Status: Ordered Quantity: 60.0 Unit: g Repeat number: 6 pregabalin 100 mg oral capsule 1 capsule = 100 mg, By Mouth, 2 times a day, temporary rx until psychiatrist is back, # 180 capsule, 0 Refills, Maintenance, 10/23/24 11:55:00 AM EST, Capsule, Partial fill upon patient request if theprescription is for a schedule II opioid drug. Start Date: 10/23/24 Status: Ordered Quantity: 180.0 Unit: capsule Repeat number: 1 scopolamine 1 mg/72 hr transdermal film, extended release 1 film, Topically, Every 72 hours, 0 Refills, Maintenance, 06/01/22 2:28:00 PM EDT, Partial fill upon patient request if the prescription is for a schedule II opioid drug. Start Date: 06/01/22 Status: Ordered Repeat number: 1 sertraline 50 mg oral tablet TAKE 1 TABLET BY MOUTH EVERY DAY Start Date: 12/20/22 Status: Ordered Repeat number: 1 Spiriva Respimat 1.25 mcg/inh inhalation aerosol 2 puffs, Inhalation, Daily, # 1 each, 11 Refills, Maintenance, 02/04/23 10:33:00 AM EDT, Aerosol, [facility] #[id number], asthma j45.9, 157, cm, 02/04/23 10:16:00 [...] AM EDT, Aerosol, Route to Pharmacy Electronically, [id number], [facility]/pharmacy #[id number], 157, cm, 02/04/23 10:16:00 EDT, Height, 138.8, kg, 06/27/22 14:01:00 EDT, Dry Weight Start Date: 02/04/23 Stop Date: 01/30/24 Status: Ordered Quantity: 1.0 Unit: each Repeat number: 12 thiamine 100 mg oral tablet 100 mg, 1, tablet, By Mouth, Daily in AM, Refills 0, Maintenance, 10/10/19 4:21:00 AM EST Start Date: 10/10/19 Status: Ordered Repeat number: 1 turmeric 500 mg oral capsule 1 capsule = 500 mg, By Mouth, Daily, # 60 capsule, 0 Refills, Maintenance, 01/13/25 11:24:00 AM EDT,Capsule, Partial fill upon patient request if the prescription is for a schedule II opioid drug. Start Date: 01/13/25 Status: Ordered Quantity: 60.0 Unit: capsule Repeat number: 1 Voltaren 1% topical gel [...] Refills, Maintenance, 07/27/24 12:41:00 PM EST, Solution, [facility] #[id number], Partial fill upon patient request if the [...] Refills, Maintenance, 08/06/24 1:30:00 PM EST, [facility]intment, [id number], Partial fill upon patient request if the [...] Team Personnel Name: Caitie Sinha RN Position: [facility] AMB Nurse Member Role: Primary Care Nurse Name: Shannan Winston RN Position: [facility] RN Member Role: Primary Care Nurse Name: Alicia Mcclellan RN Position: [facility] Outreach Member Role: Primary Care Nurse Name: Caridad Louis MD Position: [facility] Physician - Primary Care Member Role: PCP Address: [address] [place] [address] Telecom: Name: Heather Zavala RN Position: [facility] SN RN Member Role: Primary Care Nurse Name: Jennifer Martinez RN Position: [facility] OB RN Member Role: Primary Care Nurse Name: Kristin Shaw RN Position: [facility] SN RN Member Role: Primary Care Nurse Name: Jo-Ann Glass RN Position: [facility] AMB Nurse Member Role: Primary Care Nurse Name: Desi Garcia RN Position: [facility] RN Member Role: Primary Care Nurse Name: Lolly Chapman RN Position: [facility] RN Member Role: Primary Care Nurse Name: Zhanna De Souza RN Position: [facility] SN RN Member Role: Primary Care Nurse Name: Allison Lundy RN Position: [facility] RN Member Role: Primary Care Nurse Care Team Related Persons Name: DUSTY QUAN Name: KIZZY QUAN Insurance Providers Guarantor name: DIGNA [facility] Plan Information #: 1 Payer: BLUE [employer]IT [employer] PPO Payer Identifier: NA Member Number: [id number] Group Number: [id number] Subscriber Identifier: [id number] Relationship to Subscriber: self Coverage Type: BLUE CROSS/BLUE SHIELD Coverage Verification Date: NA Telecom: NA Address:
--- OUTSIDE RECORDS SUMMARY | 2025-03-05 23:59 | XMS_ITS | Continuity of Care Document ---
Author Organization [facility] Address [address] [facility] [place] [address]- Care Team Providers Care Pattern Generator Operator Name Role Phone Caridad Louis MD Primary Care Physician Encounter 02/26/25 - 03/05/25 [facility] [address], [address] [place], [place] [address] Attending Physician: Caridad Navarrete DO Admitting Physician: Caridad Navarrete DO Referring Physician: Caridad Navarrete DO Encounter Type: OutPatient One Time Allergies, Adverse Reactions, Alerts Substance Criticality Severity [...] diphtheria-tetanus toxoids (DT) 05/16/00 Given 1Result Comment: [facility] [id number] 2Result Comment: GIVEN @ [facility] 3Result Comment: [facility]# [id number] pt. tolerated inj. without complications....[place] 4Result Comment: [05/21/2018] [facility]# [id number] pt. tolerated inj. without complications....[place] 5Result Comment: [07/09/2016] [facility] employee 6Admin Note: done at cyber security manager doctor 7Admin Note: SANOFI PASTEUR 8Admin Note: SANOFI PASTEUR 9Result Comment: [07/16/2017] given without incident......vb [facility]# [id number] 10Admin Note: 3rd Injection 11Admin Note: 2 [...] Replace Required Details, Route to Pharmacy Electronically, [facility] #[id number] Tablet, Partial fill upon patient request if [...] Gm, 11 Refills, Maintenance, 01/07/25 2:01:00PM EDT, [facility] #[id number], 2 inhalation Inhalation Every 6 hours, 157, cm, 12/04/24 15:00:00 EDT, Height, 162.5, kg, 12/04/24 15:00:00 EDT, Dry Weight Start Date: 01/07/25 Status: Ordered Quantity: 18.0 Unit: g Repeat number: 12 albuterol-ipratropium 3 mg-0.5 mg/3 ml inhalation solution 3 mL, Inhalation, 4 times a day, PRN Wheezing/Shortness of Breath, # 180 mL, 11 Refills, Maintenance, 04/29/23 9:48:00 AM EDT, Solution, [facility]/pharmacy #[id number], Asthma J 45.90, 3 mL Inhalation [...] Refills, Maintenance, 12/01/24 4:30:00 PM EDT, Tablet, [facility] #[id number], 157, cm, 10/23/24 18:34:00 EST, Height, 161.2, kg, 10/23/24 11:54:00 EST, Dry Weight Start Date: 12/01/24 Stop Date: 12/29/24 Status: Ordered Quantity: 28.0 Unit: tablet Repeat number: 2 cloNIDine 0.1 mg oral tablet 0.1 mg, 1, tablet, By Mouth, Daily at supper, # 30 tablet, Refills 2, Tot. Refills 2, Maintenance, 01/20/25 3:38:00 PM EDT, Route to Pharmacy Electronically, [facility] #[id number], Partial fill upon patient request if the [...] 11:43:00 AM EDT, Route to Pharmacy Electronically, [facility] #[id number], Partial fill upon patient request if the [...] 4:59:00 PM EST, Route to Pharmacy Electronically, [facility] #[id number], Partial fill upon patient request if the [...] Refills, Maintenance, 09/23/24 2:53:00 PM EST, Gel, [facility] #[id number], Partial fill upon patient request if the [...] 0 Refills, Maintenance, 10/02/21 12:53:00 PM EST, Cook, [facility] #[id number], Partial fill upon patient request if the [...] Unit: each Repeat number: 12 nystatin topical [id number] u/gm powder 1 application, Topically, 2 times a day, # 60 Gm, 5 Refills, Maintenance, 01/18/23 3:57:00 PM EDT, Powder, [facility] #[id number], Partial fill upon patient request if the [...] Refills, Maintenance, 02/04/23 10:33:00 AM EDT, Aerosol, [facility]/pharmacy #[id number], asthma j45.9, 157, cm, 02/04/23 10:16:00 [...] AM EDT, Aerosol, Route to Pharmacy Electronically, [id number], [facility]/pharmacy #[id number], 157, cm, 02/04/23 10:16:00 EDT, Height, [...] Refills, Maintenance, 07/27/24 12:41:00 PM EST, Solution, [facility] #[id number], Partial fill upon patient request if the [...] Refills, Maintenance, 08/06/24 1:30:00 PM EST, Ointment, [facility] #[id number], Partial fill upon patient request if the [...] gain following gastric bypass surgery Confirmed Active Results Radiology Reports * Exam Date Time Procedure Performing Provider Status 02/26/25 2:02 PM MM Digital Mammo Screening Auth (Verified) Notes: (MM Digital Mammo Screening) Reason For Exam: Screening RESULT: MM Digital Mammo Screening PROCEDURE: MM Digital Mammo Screening INDICATION: Screening for breast cancer. COMPARISON: Multiple priors, most recent 06/01/2022 TECHNIQUE: Full-field digital CC and MLO 3D tomosynthesis images of both breasts were acquired. Computer-aided detection (CAD) was utilized in the interpretation of this study. DENSITY: There are scattered areas of fibroglandular density. FINDINGS: No suspicious masses, suspicious microcalcifications, or areas of architectural distortion are seen in either breast to suggest malignancy. IMPRESSION: No mammographic evidence of malignancy. RECOMMENDATION: Annual mammographic screening BI-RADS: 1 (Negative) Lay letter mailed to patient WSN: [id number] Ordering Physician: Caridad Navarrete Dictated By: Jerman Fragoso MD Dictated Date/Time: 03/01/25 3:08 pm Reviewed By: Jerman Fragoso MD Signed By: Jerman Fragoso MD Signed Date/Time: 03/01/25 3:08 pm Transcribed By: SHARON Math Instructor Date/Time: 03/01/25 3:04 pm Birads: Social History Social History Type Response Smoking Status Former smoker entered on: 05/30/15 Sex Female Sex Representation Female (finding) Patient Care team information Care Team Personnel Name: Caitie Sinha RN Position: [facility] AMB Nurse Member Role: Primary Care Nurse Name: Shannan Winston RN Position: [facility] RN Member Role: Primary Care Nurse Name: Alicia Mcclellan RN Position: [facility] Outreach Member Role: Primary Care Nurse Name: Caridad Louis MD Position: [facility] Physician - Primary Care Member Role: PCP Address: [address] [place] [address] Telecom: Name: Heather Zavala RN Position: [facility] SN RN Member Role: Primary Care Nurse Name: Jennifer Martinez RN Position: [facility] OB RN Member Role: Primary Care Nurse Name: Kristin Shaw RN Position: [facility] SN RN Member Role: Primary Care Nurse Name: Jo-Ann Glass RN Position: [facility] AMB Nurse Member Role: Primary Care Nurse Name: Desi Garcia RN Position: [facility] RN Member Role: Primary Care Nurse Name: Lolly Chapman RN Position: [facility] RN Member Role: Primary Care Nurse Name: Zhanna De Souza RN Position: [facility] SN RN Member Role: Primary Care Nurse Name: Allison Lundy RN Position: [facility] RN Member Role: Primary Care Nurse Care Team Related Persons Name: DUSTY QUAN Name: KIZZY QUAN Insurance Providers Guarantor name: [facility] Plan Information #: 1 Payer: BLUE BENEFIT [employer]BA PPO Payer Identifier: NA Member Number: [id number] Group Number: [id number] Subscriber Identifier: [id number] Relationship to Subscriber: self Coverage Type: BLUE CROSS/BLUE SHIELD Coverage Verification Date: Telecom: ALANNA Address:
[2025-03-08 15:28] VITALS: BP 153/99; PULSE 108; RESP 16; TEMP 36.2; O2SAT 96; BMI 63.8
--- NOTE | 2025-03-08 15:30 | ED.GENADULT ---
HPI - General Adult General Chief complaint: Nausea/Vomiting/Diarrhea Stated complaint: Vomiting/Nausea Related Data Home Medications ?Medication ?Instructions ?Recorded ?Confirmed clonazepam 1 mg tablet 1 tab PO BID PRN Anxiety 08/17/20 02/11/25 aripiprazole 20 mg tablet 20 mg PO DAILY 12/13/23 02/11/25 sertraline 50 mg tablet 50 mg PO DAILY 12/13/23 02/11/25 trazodone 50 mg tablet 50 mg PO BEDTIME insomnia 12/13/23 02/11/25 albuterol sulfate 90 mcg/actuation inhalation 02/11/25 02/11/25 aerosol inhaler Previous Rx's ?Medication ?Instructions ?Recorded sucralfate 1 gram tablet (Carafate) 1 g PO QID 30 days #120 tabs 10/02/22 trimethobenzamide 300 mg capsule 300 mg PO Q6H PRN nausea and 11/19/23 vomiting #30 caps scopolamine base 1 mg over 3 days 1 patch transdermal Q3D PRN nausea 11/21/23 transdermal patch and vomiting #24 ea lamotrigine 200 mg tablet 200 mg PO BID 30 days #60 tabs 01/02/24 pregabalin 100 mg capsule 100 mg PO TID 15 days #45 caps 01/02/24 diphenoxylate-atropine 2.5 1 tab PO BID PRN diarrhea #14 tabs 02/04/24 mg-0.025 mg tablet (Lomotil) cyclobenzaprine 5 mg tablet See Rx Instructions PO BEDTIME PRN 01/12/25 muscle spasm #10 tabs tizanidine 2 mg tablet 2 mg PO BID PRN muscle spasticity 01/15/25 #20 tabs diclofenac sodium 3 % topical gel 1 appl topical BID #100 grams 01/18/25 esomeprazole magnesium 40 mg 40 mg PO DAILY #90 caps 02/01/25 capsule,delayed release famotidine 40 mg tablet 40 mg PO BEDTIME #30 tabs 02/02/25 azithromycin 500 mg tablet 500 mg PO DAILY 5 days #5 tabs 02/11/25 prucalopride 2 mg tablet 2 mg PO DAILY #30 tabs 02/16/25 (Motegrity) ondansetron 8 mg disintegrating 8 mg PO Q8H PRN nausea and 02/23/25 tablet vomiting #60 tabs Allergies Allergy/AdvReac Type Severity Reaction Status Date / Time nitrofurantoin (From Allergy Unknown respiratory Verified 03/08/25 15:32 MACROBID) symptoms NSAIDS (Non-Steroidal AdvReac Mild Stomach Verified 03/08/25 15:32 Anti-Inflamma issues Adhesive Tape Allergy Intermediate Hives Uncoded 02/11/25 11:58 SEASONAL ALLERGIES Allergy Intermediate respiratory Uncoded 02/11/25 11:58 symptoms PMFSH Past Medical History Medical History Urinary retention Obesity Recurrent UTI DARRIUS (obstructive sleep apnea) Neuropathy Hyperplastic adenomatous polyp of stomach Erosive esophagitis Chronic foot pain Chondromalacia patellae Cervical radiculopathy GERD (gastroesophageal reflux disease) Nausea & vomiting Skin ulcer of abdomen Asthma Encounter for insertion of mirena IUD DARRIUS on CPAP Urinary bladder disorder Hiatal hernia with GERD Rectovaginal fistula Contusion of right knee Gastritis Vomiting Heart murmur Bipolar depression Moderate asthma Surgical History H/O eye surgery S/P implantation of urinary electronic stimulator device H/O hernia repair History of esophagogastroduodenoscopy (EGD) History of open reduction and internal fixation (ORIF) procedure History of colonoscopy H/O dilation and curettage Hx laparoscopic cholecystectomy Gastric bypass status for obesity (~1999) Family History Family History Father Hx of type 1 diabetes mellitus Mother Hx of colon cancer, stage IV Social History Social History Household Members: Spouse Are you a primary critical care unit nurse to a significant other at home: No Do you presently have visiting nurse or other home services: No Alcohol intake: current Alcohol intake frequency: does not drink Comment: RIGHT KNEE CONTUSION Patient Tobacco Use Status: Former Tobacco user Tobacco use type: Cigarette Second Hand Smoke Exposure: No Advance Directives: No Advance Directives Information Provided: No Do you have a plan to hurt others: No Plan Physical Exam ED Vital Signs: Vital Signs - 24 hr 03/08/25 15:28 Temperature 97.2 F Pulse Rate 108 H Respiratory Rate 16 Blood Pressure 153/99 H Pulse Oximetry 96 Oxygen Delivery Method Room Air BMI result Body Mass Index 63.8 Course Course Course Narrative: This is an RME performed by Lynette Nicole CNP: Additional HPI, ROS, PE not included below will be deferred to primary provider. Patient is a 49 year old female presents emergency department for evaluation she has been experiencing nausea, vomiting inability oral intake over the past month. Has been in contact from Gastroenterology, despite taking Zofran her symptoms persists. Exam: Mild diffuse tenderness throughout the abdomen. No CVAT. Plan: Serum labs, urinalysis Reevaluation(s) Reevaluation #1: LWCT Time: 20:57 Medical Decision Making Lab Data 03/08/25 15:50 03/08/25 15:50 Labs: Lab Results 03/08/25 Range/Units 15:50 WBC 8.5 (4.8-10.8) X10*3/uL RBC 4.68 (4.20-5.50) X10*6/uL Hgb 12.6 (12.0-16.0) g/dl Hct 39.5 (37.0-47.0) % MCV 84.4 (80.0-98.0) fL MCH 26.9 L (27.0-33.0) pg MCHC 31.9 (31.0-35.0) g/dl RDW 14.3 (11.0-16.0) % Plt Count 185 (160-400) X10*3/uL MPV 10.5 (9.4-12.3) fL Immature Gran % (Auto) 0.4 (0.0-0.4) % Neut % (Auto) 59.7 (45-73) % Lymph % (Auto) 30.9 (20-40) % Gulf % (Auto) 7.1 (2-11) % Eos % (Auto) 1.5 (0-4) % Baso % (Auto) 0.4 (0-2) % Lymph # (Auto) 2.6 (1.2-4.9) X10*3/uL Gulf # (Auto) 0.6 (0.1-1.2) X10*3/uL Eos # (Auto) 0.1 (0.0-0.4) X10*3/uL Baso # (Auto) 0.0 (0.0-0.2) X10*3/uL Abs Immat Gran (auto) 0.03 (0.00-0.03) X10*3/uL Absolute Neuts (auto) 5.1 (2.0-8.3) x10*3/uL Absolute Nucleated RBC 0.000 (0.0-0.012) X10*3/uL Nucleated RBC % (auto) 0.0 (0.0-0.2) /100WBC Sodium 140 (135-145) mmol/L Potassium 3.9 (3.3-5.1) mmol/L Chloride 109 H (96-108) mmol/L Carbon Dioxide 21 L (22-29) mmol/L Anion Gap 14 (12-20) BUN 19 H (9-16) mg/dL Creatinine 0.65 (0.5-1.4) mg/dL Estim Creat Clear Calc 152.6 Estimated GFR > 60 Random Glucose 120 H (60-115) mg/dL Calcium 8.8 (8.4-10.2) mg/dL Total Bilirubin 0.3 (0.0-1.0) mg/dL AST 32 H (5-31) U/L ALT 36 H (0-31) U/L Alkaline Phosphatase 100 (39-117) U/L Total Protein 7.2 (6.5-8.0) g/dL Albumin 4.3 (3.5-5.0) g/dL Lipase 9 (8-78) U/L Discharge Plan Discharge Clinical Impression: Nausea Patient Disposition: Left W/O Completing Treatment Prescriptions: No Action trimethobenzamide 300 mg capsule 300 mg PO Q6H PRN (Reason: nausea and vomiting) Qty: 30 1RF scopolamine base 1 mg over 3 days patch 3 day 1 patch transdermal Q3D PRN (Reason: nausea and vomiting) Qty: 24 0RF diphenoxylate-atropine [Lomotil] 2.5-0.025 mg tablet 1 tab PO BID PRN (Reason: diarrhea) Qty: 14 0RF esomeprazole magnesium 40 mg capsule,delayed release(DR/EC) 40 mg PO DAILY Qty: 90 1RF Rx Instructions: open capsule and mix contents with apple sauce famotidine 40 mg tablet 40 mg PO BEDTIME Qty: 30 0RF prucalopride [Motegrity] 2 mg tablet 2 mg PO DAILY Qty: 30 2RF ondansetron 8 mg tablet,disintegrating 8 mg PO Q8H PRN (Reason: nausea and vomiting) Qty: 60 0RF clonazepam 1 mg tablet 1 tab PO BID PRN (Reason: Anxiety) sucralfate [Carafate] 1 gram tablet 1 g PO QID 30 Days Qty: 120 3RF albuterol sulfate 90 mcg/actuation HFA aerosol inhaler inhalation azithromycin 500 mg tablet 500 mg PO DAILY 5 Days Qty: 5 0RF trazodone 50 mg tablet 50 mg PO BEDTIME Patient Comments: Patient reports she takes PRN. sertraline 50 mg Tablet 50 mg PO DAILY aripiprazole 20 mg tablet 20 mg PO DAILY lamotrigine 200 mg tablet 200 mg PO BID 30 Days Qty: 60 0RF pregabalin 100 mg capsule 100 mg PO TID 15 Days Qty: 45 0RF cyclobenzaprine 5 mg tablet See Rx Instructions PO BEDTIME PRN (Reason: muscle spasm) Qty: 10 0RF Rx Instructions: 1 to 2 orally bedtime PRN; tizanidine 2 mg tablet 2 mg PO BID PRN (Reason: muscle spasticity) Qty: 20 0RF diclofenac sodium 3 % gel 1 appl topical BID Qty: 100 0RF Discharge Date/Time: 03/08/25 20:28
[2025-03-08 16:11] LABS: MANUAL DIFF FLAG NO
[2025-03-08 16:14] LABS: Hematocrit 39.5 % (37.0-47.0); Hemoglobin 12.6 g/dl (12.0-16.0); Imm Gran Abs Auto 0.03 X10*3/uL (0.00-0.03); Imm Gran Pct Auto 0.4 % (0.0-0.4); Lymphocytes Absolute Auto 2.6 X10*3/uL (1.2-4.9); Mean Corpuscular HGB Conc 31.9 g/dl (31.0-35.0); Mean Corpuscular Hemoglobin 26.9 pg (27.0-33.0); Mean Corpuscular Volume 84.4 fL (80.0-98.0); NRBC Abs Auto 0.000 X10*3/uL (0.0-0.012); NRBC Pct Auto 0.0 /100WBC (0.0-0.2); Platelet Count 185 X10*3/uL (160-400); Red Blood Count 4.68 X10*6/uL (4.20-5.50); White Blood Count 8.5 X10*3/uL (4.8-10.8)
[2025-03-08 16:31] LABS: Alanine Aminotransferase 36 U/L (0-31); Albumin Level 4.3 g/dL (3.5-5.0); Alkaline Phosphatase 100 U/L (39-117); Anion Gap 14 (12-20); Aspartate Amino Transferase 32 U/L (5-31); Blood Urea Nitrogen 19 mg/dL (9-16); Calcium 8.8 mg/dL (8.4-10.2); Carbon Dioxide 21 mmol/L (22-29); Chloride 109 mmol/L (96-108); Creatinine Clr Calc Pharmacy 152.6; Estimated Glomerular Filt Rate > 60; Lipase 9 U/L (8-78); Potassium 3.9 mmol/L (3.3-5.1); Sodium 140 mmol/L (135-145); Total Protein 7.2 g/dL (6.5-8.0)
--- OUTSIDE RECORDS SUMMARY | 2025-03-08 18:12 | XMS_ITS | Encounter Summary ---
Author Organization [facility] Address [address] [place] [address] Care Team Providers Care Straight Cutter Name Role Phone Caridad Luois MD Primary Care Provider [phone]- [phone] Encounter Details Date Type Department Care Team (Late st Contact Info) Description 09/03/2024 [employer] Message [facility] Financial Counseling Department [address] [place] [phone] Mychart, Generic Provider [address] [place], [place] [id number] Financial Assistance Social History Tobacco Use Types [...] on filedocumented in this encounter Care Teams Straight Cutter Relationship Specialty Start Date End Date Caridad Louis MD [address] [place] [address] PCP - General Internal Medicine 05/05/24 documented as of this encounter
--- OUTSIDE RECORDS SUMMARY | 2025-03-08 18:12 | XMS_ITS ---
Author Name [facility] Organization Unknown Encounters Encounter Type Encounter Reason Primary Diagnosis Location Date Ambulatory [facility] [place] 05/31/2023 Ambulatory [facility] [place] 03/28/2023 Ambulatory [facility] [place] 02/21/2023 Ambulatory [facility] [place] 01/17/2023 Ambulatory [facility] [place] 01/02/2023 Ambulatory [facility] [place] 12/19/2022 Ambulatory [facility] [place] 11/07/2022
--- OUTSIDE RECORDS SUMMARY | 2025-03-08 18:12 | XMS_ITS | Clinical Summary ---
Author Organization [facility] Address [address] [place] [address] Care Team Providers Care Help Desk Intern Name Role Phone Caridad Louis MD Primary Care Provider +1- [phone] Allergies Active Allergy Reactions Criticality Noted Date [...] Vaccine ( season) 2024 06/24/2021, 09/20/2020, 08/30/2020 Breast Cancer Screening (Mammogram) 2024 Shingrix-Zoster Vaccine (1 of 2) 2024 Influenza Vaccine (#1) 2025 0, 06/23/2019, 05/21/2018, Additional history exists Pneumococcal Vaccine Aged Out 07/16/2017 No long er eligible based on patient's age to complete this topic RSV Ped < 20 months Aged Out No longe r eligible based on patient's age to complete this topic Care Teams Help Desk Intern Relationship Specialty Start Date End Date Caridad Louis MD [address] [place] [id number] PCP - General Internal Medicine 12/21/21
--- OUTSIDE RECORDS SUMMARY | 2025-03-08 18:13 | XMS_ITS | Clinical Summary ---
Author Organization [facility] Address [address] [place] [address] Care Team Providers Care Superintendent Overhead Distribution Name Role Phone Caridad Louis MD Primary Care Provider +1- [phone] Surgical History Surgery Date Site/Laterality Comments COLONOSCOPY PROCEDURE: HISTORICAL COLONOSCOPY; COMMENT: 08/24/20, 11/27/16, 04/2013, 2007 ESOPHAGOGASTRODUODENOSCOPY 10/24/2018 PROCEDURE: AL ESOPHAGOGASTRODUODENOSCOPY TRANSORAL DIAGNOSTIC OTHER SURGICAL HISTORY 03/10/2018 PROCEDURE: AL RPR PARAESOPH HIATAL HERNIA W/LAPT W/O MESH OTHER SURGICAL HISTORY 05/23/2017 PROCEDURE: AL ENDOSCOPY UPPER SMALL INTESTINE BLADDER SURGERY 2016 PROCEDURE: HISTORICAL BLADDER SURGERY; COMMENT: Implantation of electronic stimulator ESOPHAGOGASTRODUODENOSCOPY 02/20/2016 PROCEDURE: AL ESOPHAGOGASTRODUODENOSCOPY TRANSORAL DIAGNOSTIC OTHER SURGICAL HISTORY 11/27/2016 PROCEDURE: AL ENDOSCOPY UPPER SMALL INTESTINE OTHER SURGICAL HISTORY 05/01/2012 PROCEDURE: AL EGD FLEXIBLE TRANSNASAL W/BIOPSY SINGLE/MULTIPLE CHOLECYSTECTOMY 06/02/2010 PROCEDURE: AL LAPAROSCOPY SURG CHOLECYSTECTOMY OTHER SURGICAL HISTORY 2000 PROCEDURE: AL LAPS GSTR RSTCV PX W/BYP ANDREW-EN-Y LIMB <150 CM EYE SURGERY 1979 Right PROCEDURE: HISTORICAL EYE SURGERY; COMMENT: Right eye strabismus surgery for amblyopia GASTRIC BYPASS PROCEDURE: AL GASTRIC RSTCV W/BYP W/SM INT RCNSTJ LIMIT [...] swelling LUQ pain DX:LUQ pain Mood disorder ([facility] V24) DX:M ood disorder ([facility]) Nausea DX:Nausea Neuropathy DX:Neuropathy Obstructive sleep apnea DX:Obstr uctive sleep apnea Otitis media of left ear DX:Otit is media of left ear Pneumonia DX:Pneumonia Recurrent UTI DX:Recurrent UTI Seasonal allergic rhinitis DX:Se asonal allergic rhinitis Severe obesity ([facility] V24, [facility] V28) DX:Severe obesity ([facility]) Thrombocytopenia ([facility] V24) D X:Thrombocytopenia ([facility]) Vaginal discharge DX:Vaginal dis charge Weight gain following gastri c bypass surgery DX:Weight gain following gas tric bypass surgery Chest pain DX:Chest pain Non-cardiac chest pain DX:Non-ca rdiac chest pain Rectovaginal fistula DX:Rectovag inal fistula Low back pain DX:Low back pain Morbid obesity with BMI of 5 0.0-59.9, adult ([facility]/HCC V24, [facility]/HCC V28) DX:Morbid obesity wit h BMI of 50.0-59.9, adult ([facility]) Family History Medical History Relation Name [...] Vaccines (1 of 2) 2024 Influenza Vaccine (#1) 2025 3, 06/12/2021, 06/04/2020, Additional history exists DTaP,Tdap,and Td Vaccines (4 - Td or Tdap) 12/20/2032 12/20/2022, 11/26/2011, 05/16/2000 Hepatitis B Vaccines Completed 11/04/2012, 05/08/2012, 04/10/2012 MMR Vaccines Aged Out 06/30/2014, 04/26/2014 No lo nger eligible based on patient's age to complete this topic Pneumococcal Vaccine: 50+ Years Completed 12/20/2022, 07/16/2017 Pneumococcal Vaccine: Pediatrics (0 to 5 Years) and At-Risk Patients (6 to 49 Years) Completed 12/20/2022, 07/16/2017 HIB Vaccines Aged [...] age to complete this topic Care Teams Superintendent Overhead Distribution Relationship Specialty Start Date End Date Caridad Louis MD [address] [place] [address] PCP - General Internal Medicine 08/28/21
--- OUTSIDE RECORDS SUMMARY | 2025-03-08 18:13 | XMS_ITS | Patient Health Record ---
Author Organization [facility] Address [address] [facility] [address] [place] [address] Care Team Providers Care Campaign Advisor Name Role Phone Caridad Louis Primary Care Provider Unavaila ble Allergies Allergen (clinical drug ingredient) Drug/Non Drug Allergy documented on EMR Reaction Allergy Type Onset Date Status adhesive bandage (uncoded) rash Allergy Active Macrobid breathing difficulty, itching Drug Allergy Active [...] Problem Status W/U Status Risk Notes Problem 245410829 Morbid (severe) obesity due to excess calories (E66.01) Active confirmed Problem 89990508270029834 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) Active confirmed Problem [id number] 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) Active confirmed Problem 869010801 Body mass index [BMI] 50.0-59.9, adult (Z68.43) Active confirmed Plan Of Treatment No Information Insurance Providers Payer Name Payer Address Payer Phone Subscriber Number Group Number Insured Name Patient Relationship to Insured Coverage Start Date Coverage End Date [employer] [address] [address] [place] [address] [phone] [id number] Lisa Foss Self - patient is the [...] following gastric bypass COVID vaccinated X 2 ([employer]) and [address] ([employer]) Surgical History Surgery Date(Month/Year) colonoscopy 08/24/2020, 11/27/2016, 04/03 013, 2008 esophagogastroduodenoscopy 10/24/2018, 0 02/20/2016 laparoscopic hiatal hernia repair 2017 upper GI endoscopy 05/23/2017 implantation of electric stimulator into bladder 2017 dilation and curettage and Mirena IUD pl [...]
== END 2025-03-08 20:28 | disposition left against medical advice (07) ==
PROVIDERS: Nurse Practitioner Family; Emergency Provider Emergency Medicine; PCP Internal Medicine
DX: R11.2 Nausea with vomiting, unspecified (principal); Z79.899 Other long term (current) drug therapy; Z87.891 Personal history of nicotine dependence
CPT/HCPCS: 36415; 80053; 83690; 85025; 99281; 99283

== ENCOUNTER 2025-03-10 12:06 | Outpatient (REF) | payer OTHER, SELFPAY ==
--- NOTE | ~2025-03-10 | CT_ITS ---
EXAMINATION: CT ABDOMEN PELVIS WITH IV CONTRAST HISTORY: R11.0 - Nausea COMPARISON: There are no prior studies for available comparison. TECHNIQUE: CT scan of the abdomen and pelvis was performed following administration of 85 mL Omnipaque 350 using standard departmental protocol. Coronal and sagittal reformatted images were generated and reviewed. The patient received oral contrast material. This CT exam was performed with one or more of the following dose reduction techniques: automated exposure control, adjustment of the mA and/or kV according to patient size, use of iterative reconstruction technique. DLP: 1129 mGy-cm FINDINGS: LOWER CHEST: The visualized lung bases are clear. There is no pleural effusion. CARDIOVASCULATURE: The heart is normal in size. There is no pericardial effusion. LIVER: The liver is normal in size and contour. The liver demonstrates diffuse decreased attenuation, consistent with steatosis. There is a 1.5 cm hypodensity in the right lobe which is difficult to characterize. The hepatic and portal veins are patent. GALLBLADDER / BILE DUCTS: The gallbladder is surgically absent. There is no intra or extrahepatic biliary ductal dilatation. SPLEEN: The spleen is normal in size. No focal splenic lesion is identified. PANCREAS: The pancreas is unremarkable in appearance. ADRENAL GLANDS: Within normal limits. KIDNEYS/RETROPERITONEUM: No renal calculi are identified. There is no hydronephrosis. No renal masses are identified. LYMPH NODES: No abdominal or pelvic lymphadenopathy. VASCULATURE: The abdominal aorta is normal in caliber. MESENTERY/PERITONEUM: No free fluid. No masses. There is no free intraperitoneal gas. STOMACH: The patient is status post gastric surgery. SMALL BOWEL: The small bowel is normal in caliber. COLON: There is a large amount of stool throughout the colon. APPENDIX: Normal. URINARY BLADDER/PELVIC ORGANS: The urinary bladder is collapsed, limiting evaluation. An IUD is noted in the endometrial cavity of the uterus. BONES / SOFT TISSUES: A sacral stimulator is seen in place. CT/CT abdomen pelvis w IV con IMPRESSION: 1. Postsurgical changes involving the stomach. No evidence of bowel obstruction. 2. Large amount of stool throughout the colon. 3. Hepatic steatosis. 1.5 cm hypodensity in the right lobe which may represent a cyst or hemangioma. Ultrasound evaluation may be helpful. Electronically signed by: Graham Welsh MD 03/11/2025 07:29 AM EDT RP
--- OUTSIDE RECORDS SUMMARY | 2025-03-10 13:13 | XMS_ITS | Encounter Summary ---
Author Organization [facility] Address [address] [place] [address] Care Team Providers Care Flavor Maker Name Role Phone Caridad Louis MD Primary Care Provider [phone]- [phone] Encounter Details Date Type Department Care Team (Late st Contact Info) Description 09/03/2024 [employer] Message [facility] Financial Counseling Department [address] [place] [id number] Mychart, Generic Provider [address] [place], [place] [id number] Financial Assistance Social History Tobacco Use Types [...] on filedocumented in this encounter Care Teams Flavor Maker Relationship Specialty Start Date End Date Caridad Louis MD [address] [place] [address] PCP - General Internal Medicine 05/05/24 documented as of this encounter
--- OUTSIDE RECORDS SUMMARY | 2025-03-10 13:13 | XMS_ITS | Patient Health Record ---
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
--- OUTSIDE RECORDS SUMMARY | 2025-03-10 13:13 | XMS_ITS | Clinical Summary ---
Author Organization [facility] Address [address] [place] [address] Care Team Providers Care Oven Tender Name Role Phone Caridad Louis MD Primary Care Provider +1- [phone] Allergies Active Allergy Reactions Criticality Noted Date [...] age to complete this topic Care Teams Oven Tender Relationship Specialty Start Date End Date Caridad Louis MD [address] [place] [phone] PCP - General Internal Medicine 12/21/21
--- OUTSIDE RECORDS SUMMARY | 2025-03-10 13:13 | XMS_ITS | Clinical Summary ---
Author Organization [facility] it[facility] Address [address] [place] [address] Care Team Providers Care Sports Marketing Specialist Name Role Phone Caridad Louis MD Primary Care Provider +1- [phone] Surgical History Surgery Date Site/Laterality Comments COLONOSCOPY PROCEDURE: HISTORICAL COLONOSCOPY; COMMENT: 08/24/20, 11/27/16, 04/2013, 2007 ESOPHAGOGASTRODUODENOSCOPY 10/24/2018 PROCEDURE: WI ESOPHAGOGASTRODUODENOSCOPY TRANSORAL DIAGNOSTIC OTHER SURGICAL HISTORY 03/10/2018 PROCEDURE: WI RPR PARAESOPH HIATAL HERNIA W/LAPT W/O MESH OTHER SURGICAL HISTORY 05/23/2017 PROCEDURE: WI ENDOSCOPY UPPER SMALL INTESTINE BLADDER SURGERY 2016 PROCEDURE: HISTORICAL BLADDER SURGERY; COMMENT: Implantation of electronic stimulator ESOPHAGOGASTRODUODENOSCOPY 02/20/2016 PROCEDURE: WI ESOPHAGOGASTRODUODENOSCOPY TRANSORAL DIAGNOSTIC OTHER SURGICAL HISTORY 11/27/2016 PROCEDURE: WI ENDOSCOPY UPPER SMALL INTESTINE OTHER SURGICAL HISTORY 05/01/2012 PROCEDURE: WI EGD FLEXIBLE TRANSNASAL W/BIOPSY SINGLE/MULTIPLE CHOLECYSTECTOMY 06/02/2010 PROCEDURE: WI LAPAROSCOPY SURG CHOLECYSTECTOMY OTHER SURGICAL HISTORY 2000 PROCEDURE: WI LAPS GSTR RSTCV PX W/BYP ANDREW-EN-Y LIMB <150 CM EYE SURGERY 1979 Right PROCEDURE: HISTORICAL EYE SURGERY; COMMENT: Right eye strabismus surgery for amblyopia GASTRIC BYPASS PROCEDURE: WI GASTRIC RSTCV W/BYP W/SM INT RCNSTJ LIMIT [...] swelling LUQ pain DX:LUQ pain Mood disorder ([facility] V24) DX:M ood disorder ([facility]) Nausea DX:Nausea Neuropathy DX:Neuropathy Obstructive sleep apnea DX:Obstr uctive sleep apnea Otitis media of left ear DX:Otit is media of left ear Pneumonia DX:Pneumonia Recurrent UTI DX:Recurrent UTI Seasonal allergic rhinitis DX:Se asonal allergic rhinitis Severe obesity ([facility] V24, [facility] V28) DX:Severe obesity ([facility]) Thrombocytopenia ([facility] V24) D X:Thrombocytopenia ([facility]) Vaginal discharge DX:Vaginal dis charge Weight gain following gastri c bypass surgery DX:Weight gain following gas tric bypass surgery Chest pain DX:Chest pain Non-cardiac chest pain DX:Non-ca rdiac chest pain Rectovaginal fistula DX:Rectovag inal fistula Low back pain DX:Low back pain Morbid obesity with BMI of 5 0.0-59.9, adult ([facility] V24, [facility] V28) DX:Morbid obesity wit h BMI of 50.0-59.9, adult ([facility]) Family History Medical History Relation Name Comments [...] age to complete this topic Care Teams Sports Marketing Specialist Relationship Specialty Start Date End Date Caridad Louis MD [address] [place] [address] PCP - General Internal Medicine 08/28/21
[2025-03-10] MEDS: Barium Sulfate Oral (Vanilla) 450 ML ORAL.SUSP 900 ML PO (16:11)
[2025-03-10] MEDS: iohexoL 350 MG/ML 100 ML INFUS..BTL 85 ML IV (16:30)
== END 2025-03-10 12:07 | disposition home or self-care (01) ==
LOC: HO.CT 12:06
PROVIDERS: PCP Internal Medicine; Visit Provider Internal Medicine Gastroenterology
DX: R10.11 Right upper quadrant pain (principal); R11.0 Nausea
CPT/HCPCS: 74177; Q9967

== ENCOUNTER → 2025-03-10 12:10 | Outpatient (BNV) | payer OTHER, SELFPAY | PROVIDERS: PCP Internal Medicine; Visit Provider Radiology Diagnostic Radiology | DX: K76.0 Fatty (change of) liver, not elsewhere classified (principal); K56.41 Fecal impaction; K76.89 Other specified diseases of liver | CPT/HCPCS: 74177 ==

== ENCOUNTER → 2025-03-17 15:02 | Outpatient (BNVA) | payer OTHER, SELFPAY | PROVIDERS: PCP Internal Medicine; Visit Provider Physician Assistant Medical | DX: Z13.89 Encounter for screening for other disorder (principal) | CPT/HCPCS: 99213 ==

== ENCOUNTER 2025-04-14 09:12 | Outpatient (REF) | payer OTHER, SELFPAY ==
--- NOTE | ~2025-04-14 | CT_ITS ---
EXAMINATION: CT HEAD WITH/WITHOUT CONTRAST CLINICAL INFORMATION: Nausea. Headache. COMPARISON: None available. TECHNIQUE: Contiguous axial imaging was performed from the skull base to vertex before and after the administration of 85 mL of Omnipaque [address] examination was performed using dose optimization techniques as appropriate, variously including the following: *Automated exposure control *Adjustment of mA and/or kV according to patient size (this includes techniques or standardized protocols for targeted exams where dose is matched to indication/reason for exam; i.e. extremities or head) *Use of iterative reconstruction technique. DLP: 2597 mGy centimeter. FINDINGS: No acute intracranial hemorrhage, mass effect, midline shift, hydrocephalus or herniation. Goldberg-white matter differentiation is normal. No abnormal enhancement within the intra-axial or the extra-axial compartments of the cranium. Calcified plaques in the V4 segments of the vertebral arteries and the cavernous supraclinoid segments both ICAs. Sellar/suprasellar region demonstrated no gross masses. Craniocervical junction demonstrates normal position of the cerebellar tonsils. The main cerebral venous sinuses and cerebral veins are patent without intraluminal filling defects. No air-fluid levels in the paranasal sinuses. Tympanic cavities and mastoid air cells are aerated. No gross masses in the intraconal or extraconal compartments of the orbits. CT/CT head/brain wo/w IV con IMPRESSION: No acute or structural brain abnormality. No abnormal enhancement. Electronically signed by: Price Mcmullen MD 04/14/2025 10:30 AM EDT
--- OUTSIDE RECORDS SUMMARY | 2025-04-14 09:36 | XMS_ITS | Clinical Summary ---
Author Organization [facility] Address [address] [facility] [address] [place] [address] Phone Care Team Providers Care Manager Of Organizational Development Name Role Phone Caridad Louis MD Primary Care Provider + Allergies Active Allergy Reactions Criticality Noted Date Comments Nitrofurantoin Monohyd/M-Cryst Anaphylaxis High 05/0 03/2019 Medications fluticasone propion-salmete rol (ADVAIR DISKUS) 500-50 mcg/dose DISKUS Inhale 1 puff into the lungs 2 (two) times a day. Active esomeprazole (NEXIUM) 40 MG capsule Take 40 mg by mouth daily before breakfast. Active albuterol 90 mcg/actuation inhaler Inhale 2 puffs into the lungs every 6 (six) hours as needed for wheezing. Active ipratropium-alb uterol (DUONEB) 0.5-2.5 mg/3 mL nebulizer solution as needed for wheezing. Active ondansetron (ZOFRAN) 4 MG tablet Take 4 mg by mouth every 8 (eight) hours as needed for nausea. Active lamoTRIgine (LAMICTAL) 100 MG tablet Take 100 mg by mouth daily. Active OLANZapine (ZYPREXA) 10 MG tablet Take 10 mg by mouth nightly at bedtime. Active Social History Tobacco Use Types Packs/Day Years Used Date Smoking Tobacco: Never Smokeless Tobacco: Never Education Answer Date Recorded Are you interested in more education? Not on maria de jesus e 12/28/2022 Are you concerned about learning? Not on file 12/28/2022 No 12/28/2022 No 12/28/2022 Digital Access Answer Date Recorded No 01/26/2023 No 01/26/2023 No 01/26/2023 Reliable internet access at home? Not on file 01/26/2023 Device with a working camera? Not on file Comments Unknown Sex and Gender Information Value Date Recorded Sex Assigned at Not on file Legal Sex Female 2:34 PM EDT Gender Identity Not on file Sexual Orientation Not on file Last Filed Vital Signs Vital Sign Reading Time Taken Comments Blood Pressure 129/88 01/06/2019 12:05 PM EDT Pulse 76 01/06/2019 12:05 PM EDT Temperature - - Respiratory Rate - - Oxygen Saturation 96% 01/06/2019 12:05 PM EDT Inhaled Oxygen Concentration - - Weight 152.4 kg (336 lb) 01/06/2019 12:05 PM EDT Height 157.5 cm (5' 2 ) 01/06/2019 12:05 PM EDT Body Mass Index 61.46 01/06/2019 12:05 PM EDT Plan of Treatment Health Maintenance Due Date Last Done Comments Adult Td,Tdap Booster 1974 LIPID PANEL 1974 DEPRESSION SCREENING 1986 HEPATITIS C SCREENING 1992 HIV ONE-TIME SCREENING (18-6 5 YEARS) 1992 PAP SMEAR 12/02/1995 MAMMOGRAM 2014 COLOGUARD 12/02/2019 COLONOSCOPY 12/02/2019 COLORECTAL CANCER SCREENING 12/02/2019 FIT TEST 12/02/2019 FOBT 12/02/2019 SIGMOIDOSCOPY 12/02/2019 VIRTUAL COLONOSCOPY 12/02/2019 COVID-19 VACCINE (3 - 2023-2 5 season) 2024 09/20/2020, 08/30/2020 PNEUMOCOCCAL VACCINES (50+ years) (1 of 1 - PCV) 2024 ZOSTER VACCINES (1 of 2) 2024 SMOKING STATUS SCREENING (On ce After 26 Yrs) Completed 01/06/2019 HEPATITIS A VACCINES Aged Out No long er eligible based on patient's age to complete this topic HIB VACCINES Aged Out No longer eligi ble based on patient's age to complete this topic MENINGOCOCCAL VACCINES (ACWY) Aged Out No longer eligible based on patient's age to complete this topic MENINGOCOCCAL VACCINES (B) Aged Out N o longer eligible based on patient's age to complete this topic Medical Devices Not [place] [address] [place] [id number] [place] [id number] [place] [address] [place] [address] [employer] GENERIC COMMERCIAL GENERIC COMMERCIAL GENERIC COMMERCIAL Care Teams Manager Of Organizational Development Relationship Specialty Start Date End Date Caridad Louis MD [facility] [place] [address] PCP - General Internal Medicine 05/01/18 Additional Source Comments The information contained in this document represents components of the legal health record. It is not the complete legal health record.[facility]
--- OUTSIDE RECORDS SUMMARY | 2025-04-14 09:36 | XMS_ITS | Clinical Summary ---
Author Organization [facility] Address [address] [place] [address] Care Team Providers Care Hide Spreader Name Role Phone Caridad Louis MD Primary Care Provider +1- [phone] Allergies Active Allergy Reactions Criticality Noted Date [...] age to complete this topic Care Teams Hide Spreader Relationship Specialty Start Date End Date Caridad Louis MD [address] [place] [phone] PCP - General Internal Medicine 12/21/21
--- OUTSIDE RECORDS SUMMARY | 2025-04-14 09:36 | XMS_ITS | Encounter Summary ---
Author Organization [facility] Address [address] [place] [address] Care Team Providers Care Phlebotomy Lab Assistant Name Role Phone Caridad Louis MD Primary Care Provider +1- [phone] Encounter Details Date Type Department Care Team (Late st Contact Info) Description 09/03/2024 [facility] Message [facility] [address] [place] [id number] Mychart, Generic Provider [address] [place], [place] [id number] Financial Assistance Social History Tobacco Use Types [...] on filedocumented in this encounter Care Teams Phlebotomy Lab Assistant Relationship Specialty Start Date End Date Caridad Louis MD [address] [place] [address] PCP - General Internal Medicine 05/05/24 documented as of this encounter
--- OUTSIDE RECORDS SUMMARY | 2025-04-14 09:36 | XMS_ITS | Patient Health Record ---
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) Active confirmed Problem Osteoarthritis of left subtalar joint (6918788826979126 6) 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) Active confirmed Problem Body mass index 40+ - morbidly obese (257150861) Body mass index [BMI] 50.0-59.9, adult (Z68.43) Active confirmed Plan Of Treatment No Information Insurance Providers Payer Name Payer Address Payer Phone Subscriber Number Group Number Insured Name Patient Relationship to Insured Coverage Start Date Coverage End Date [employer] [address] [address] [place] [address] [id number] Lisa Foss Self - patient is the [...] following gastric bypass COVID vaccinated X 2 ([employer]) and [address] ([employer]) Surgical History Surgery Date(Month/Year) colonoscopy 08/24/2020, 11/27/2016, [...] eye strabismus surgery for ? ambly opia 1979 bladder stimulator 10/2021 Hospitalization History Reason Date(Month/Year) asthma left foot surgery anal fistula hiatal hernia repair cholecystectomy gastric bypass
--- OUTSIDE RECORDS SUMMARY | 2025-04-14 09:36 | XMS_ITS | Clinical Summary ---
Author Organization [facility] it Address [address] [place] [address] Care Team Providers Care Quantitative Research Analyst Name Role Phone Caridad Louis MD Primary Care Provider +1- [phone] Encounters Date Type Department Care Team Description 03/18/2025 Telephone Bariatric Surgery - [place] [address] [facility] [address] [place] [address] Cielo Gabriel RN from Last 3 Months Surgical History Surgery Date Site/Laterality Comments COLONOSCOPY PROCEDURE: HISTORICAL COLONOSCOPY; COMMENT: 08/24/20, 11/27/16, 04/2013, 2007 ESOPHAGOGASTRODUODENOSCOPY 10/24/2018 PROCEDURE: SD ESOPHAGOGASTRODUODENOSCOPY TRANSORAL DIAGNOSTIC OTHER SURGICAL HISTORY 03/10/2018 PROCEDURE: SD RPR PARAESOPH HIATAL HERNIA W/LAPT W/O MESH OTHER SURGICAL HISTORY 05/23/2017 PROCEDURE: SD ENDOSCOPY UPPER SMALL INTESTINE BLADDER SURGERY 2016 PROCEDURE: HISTORICAL BLADDER SURGERY; COMMENT: Implantation of electronic stimulator ESOPHAGOGASTRODUODENOSCOPY 02/20/2016 PROCEDURE: SD ESOPHAGOGASTRODUODENOSCOPY TRANSORAL DIAGNOSTIC OTHER SURGICAL HISTORY 11/27/2016 PROCEDURE: SD ENDOSCOPY UPPER SMALL INTESTINE OTHER SURGICAL HISTORY 05/01/2012 PROCEDURE: SD EGD FLEXIBLE TRANSNASAL W/BIOPSY SINGLE/MULTIPLE CHOLECYSTECTOMY 06/02/2010 PROCEDURE: SD LAPAROSCOPY SURG CHOLECYSTECTOMY OTHER SURGICAL HISTORY 2000 PROCEDURE: SD LAPS GSTR RSTCV PX W/BYP ANDREW-EN-Y LIMB <150 CM EYE SURGERY 1979 Right PROCEDURE: HISTORICAL EYE SURGERY; COMMENT: Right eye strabismus surgery for amblyopia GASTRIC BYPASS PROCEDURE: SD GASTRIC RSTCV W/BYP W/SM INT RCNSTJ LIMIT [...] swelling LUQ pain DX:LUQ pain Mood disorder ([facility] V24) DX:M ood disorder ([facility]) Nausea DX:Nausea Neuropathy DX:Neuropathy Obstructive sleep apnea DX:Obstr uctive sleep apnea Otitis media of left ear DX:Otit is media of left ear Pneumonia DX:Pneumonia Recurrent UTI DX:Recurrent UTI Seasonal allergic rhinitis DX:Se asonal allergic rhinitis Severe obesity (CMS/HCC V24, CMS/HCC V28) DX:Severe obesity ([facility]) Thrombocytopenia (CMS/HCC V24) D X:Thrombocytopenia ([facility]) Vaginal discharge DX:Vaginal dis charge Weight gain following gastri c bypass surgery DX:Weight gain following gas tric bypass surgery Chest pain DX:Chest pain Non-cardiac chest pain DX:Non-ca rdiac chest pain Rectovaginal fistula DX:Rectovag inal fistula Low back pain DX:Low back pain Morbid obesity with BMI of 5 0.0-59.9, adult (CMS/HCC V24, CMS/HCC V28) DX:Morbid obesity wit h BMI of 50.0-59.9, adult ([facility]) Family History Medical History Relation [...] Panel) 10/02/2019 Colorectal Cancer Screening: Colonoscopy 10/02/2019 HIV Screening 10/02/2019 Hepatitis C Screening 10/02/2019 Social Influencers of Health Screening 10/02/2019 COVID-19 Vaccine ( - season) 2024 06/24/2021, 09/20/2020, 08/30/2020 Depression Screening 09/02/2024 Zoster Vaccines (1 of 2) 2024 Influenza Vaccine (#1) 2025 3, 06/12/2021, 06/04/2020, Additional history exists DTaP,Tdap,and Td Vaccines (4 - Td or Tdap) 12/20/2032 12/20/2022, 11/26/2011, 05/16/2000 Hepatitis B Vaccines Completed 11/04/2012, 05/08/2012, 04/10/2012 MMR Vaccines Aged Out 06/30/2014, 04/26/2014 No lo nger eligible based on patient's age to complete this topic Pneumococcal Vaccine: 50+ Years Completed 12/20/2022, 07/16/2017 HIB Vaccines Aged Out [...] age to complete this topic Care Teams Quantitative Research Analyst Relationship Specialty Start Date End Date Caridad Louis MD [address] [place] [id number] PCP - General Internal Medicine 08/28/21
[2025-04-14] MEDS: iohexoL 350 MG/ML 100 ML INFUS..BTL IV (10:06)
[2025-04-14 12:36] LABS: Creatinine POC 0.8 mg/dL (0.5-1.4); GFR POC > 60
== END 2025-04-14 09:13 | disposition home or self-care (01) ==
LOC: HO.CT 09:12
PROVIDERS: PCP Internal Medicine; Visit Provider Internal Medicine Gastroenterology
DX: R11.0 Nausea (principal)
CPT/HCPCS: 70470; 82565; Q9967

== ENCOUNTER → 2025-04-14 09:17 | Outpatient (BNV) | payer OTHER, SELFPAY | PROVIDERS: PCP Internal Medicine; Visit Provider Radiology Diagnostic Radiology | DX: R51.9 Headache, unspecified (principal) | CPT/HCPCS: 70470 ==

== ENCOUNTER → 2025-04-28 14:31 | Outpatient (BNVA) | payer OTHER, SELFPAY | PROVIDERS: PCP Internal Medicine; Visit Provider Physician Assistant Medical | DX: Z13.89 Encounter for screening for other disorder (principal) | CPT/HCPCS: 99213 ==

== ENCOUNTER 2025-05-12 12:24 | Outpatient (AMB) | payer OTHER, SELFPAY ==
[2025-05-12 12:38] VITALS: BMI 63.6
--- NOTE | 2025-05-12 12:38 | MHC.OFFVIS ---
Vital Signs 05/12/25 12:38 Height 5 ft 2 in Weight 348 lb BMI 63.6 Intake Visit Reasons: New prob-Rt shoulder WC DOI: 01/07/25 Intake Note: Lisa is a 49 year old left hand dominant female who presents with complaints of right shoulder pain and weakness as well as numbness and tingling which radiates down to her right hand after falling at work on 01/07/2025. She has been to formal physical therapy which seemed to aggravate her pain. She reports weakness when lifting her right hand above shoulder height. She has tried Tylenol and muscle relaxants which gave her minimal relief. 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 Allergies nitrofurantoin (From [employer]) Allergy (Unknown, Verified 05/12/25 12:39) respiratory symptoms NSAIDS (Non-Steroidal Anti-Inflamma Adverse Reaction (Mild, Verified 05/12/25 12:39) Stomach issues Adhesive Tape Allergy (Intermediate, Uncoded 05/12/25 12:39) Hives SEASONAL ALLERGIES Allergy (Intermediate, Uncoded 05/12/25 12:39) respiratory symptoms Medication List - Last Reconciled 05/12/25 by Bill Saunders MD albuterol sulfate 90 mcg/actuation inhalation aripiprazole 20 mg PO DAILY cephalexin 500 mg PO Q8H clonazepam 1 tab PO BID PRN cyclobenzaprine 1 to 2 orally bedtime PRN; diclofenac sodium 3% 1 appl topical BID diphenoxylate-atropine 2.5-0.025 mg (Lomotil) 1 tab PO BID PRN esomeprazole magnesium 40 mg PO DAILY famotidine 40 mg PO BEDTIME lamotrigine 200 mg PO BID 30 days ondansetron 8 mg PO Q8H PRN pregabalin 100 mg PO TID 15 days promethazine 50 mg PO BID PRN 2 days prucalopride (Motegrity) 2 mg PO DAILY rifaximin 550 mg PO TID 2 weeks scopolamine base 1 patch transdermal Q3D PRN sertraline 50 mg PO DAILY sucralfate (Carafate) 1 g PO QID 30 days tizanidine 2 mg PO BID PRN trazodone 50 mg PO BEDTIME trimethobenzamide 300 mg PO Q6H PRN PFSH Medical History Urinary retention Obesity Recurrent UTI DARRIUS (obstructive sleep apnea) Neuropathy Hyperplastic adenomatous polyp of stomach Erosive esophagitis Chronic foot pain Chondromalacia patellae Cervical radiculopathy GERD (gastroesophageal reflux disease) Nausea & vomiting Skin ulcer of abdomen Asthma Encounter for insertion of mirena IUD DARRIUS on CPAP Urinary bladder disorder Hiatal hernia with GERD Rectovaginal fistula Contusion of right knee Gastritis Vomiting Heart murmur Bipolar depression Moderate asthma Surgical History H/O eye surgery S/P implantation of urinary electronic stimulator device H/O hernia repair History of esophagogastroduodenoscopy (EGD) History of open reduction and internal fixation (ORIF) procedure History of colonoscopy H/O dilation and curettage Hx laparoscopic cholecystectomy Gastric bypass status for obesity (~1999) Family History Father Hx of type 1 diabetes mellitus Mother Hx of colon cancer, stage IV Social History Household Members: Spouse Are you a primary district manager primary care sales to a significant other at home: No Do you presently have visiting nurse or other home services: No Alcohol intake: current Alcohol intake frequency: does not drink Comment: RIGHT KNEE CONTUSION Patient Tobacco Use Status: Former Tobacco user Tobacco use type: Cigarette Second Hand Smoke Exposure: No Physical Exam Vital Signs: BMI result Body Mass Index 63.6 Extrem Other: Right shoulder examination shows slightly decreased range of motion when compared to her left shoulder, 4+ out of 5 strength with supraspinatus testing, positive impingement signs, no instability Results Reviewed Results Reviewed: X-rays of the patient's right shoulder show moderate acromioclavicular joint narrowing, a type 2 acromion, no acute bony abnormalities Assessment & Plan Assessment & Plan (1) Rotator cuff insufficiency of right shoulder: Code(s): M25.311 - Other instability, right shoulder Category: Medical Plan Mrs. Foss presents with right shoulder pain and weakness possibly due to a rotator cuff tear. Thus, I will send the patient for an MRI of her right shoulder for further evaluation. I will keep her on light duty work until further notice. I will see her back once the MRI is completed to discuss the findings and treatment options. Feel free to call me at any time should questions regarding her orthopedic management arise. I spent 21 minutes in reviewing the patient's records and imaging studies, seeing the patient and documenting in the medical record. Orders: Orders MR shoulder RT wo con 05/13/25 M25.311 - Other instability, right shoulder Coding Level of Care Code Est Pt Level 3 (34164) Complex EM visit Add On G2211 Diagnoses Rotator cuff insufficiency of right shoulder M25.311
--- OUTSIDE RECORDS SUMMARY | 2025-05-12 15:26 | XMS_ITS | Clinical Summary ---
Author Organization [facility] Address [address] [facility] [address] [place] [address] Phone Care Team Providers Care Boring Mill Set Up Operator Name Role Phone Caridad Louis MD [...] FOBT 12/02/2019 SIGMOIDOSCOPY 12/02/2019 VIRTUAL COLONOSCOPY 12/02/2019 PNEUMOCOCCAL VACCINES (50+ years) (1 of 1 - PCV) 2024 ZOSTER VACCINES (1 of 2) 2024 INFLUENZA VACCINE (#1) 2025 0, 06/05/2016 COVID-19 VACCINE (2024-2 6 season) 2025 09/20/2020, 08/30/2020 SMOKING STATUS SCREENING (On ce After 26 [...] Devices Not on file Insurance GENER[employer]CIAL [place] [id number] [place] [address] GENERIC COMMERCIAL GENERIC COMMERCIAL GENERIC COMMERCIAL GENERIC COMMERCIAL Care Teams Boring Mill Set Up Operator Relationship Specialty Start Date End Date Caridad Louis MD [address] [place] [address] PCP - General Internal Medicine 05/01/18 Additional Source Comments The information contained in this document represents components of the legal health record. It is not the complete legal health record.[facility]
--- OUTSIDE RECORDS SUMMARY | 2025-05-12 15:26 | XMS_ITS | Encounter Summary ---
Author Organization [facility] Address [address] [place] [address] Phone Care Team Providers Care Wood Block Artist Name Role Phone Caridad Louis MD Primary Care Provider + Encounter Details Date Type Department Care Team (Late st Contact Info) Description 03/10/2019 Procedure Pass [facility] [place] [facility] ENDO DEPT [address] [facility], 4th [place] [address] Social History Tobacco Use Types Packs/Day Years Used Date Smoking Tobacco: Never Smokeless Tobacco: Never Comments Unknown Sex and Gender Information Value Date Recorded Sex Assigned at Not on file Legal Sex Female 2:34 PM EDT Gender Identity Not on file Sexual Orientation Not on file documented as of this encounter Plan of Treatment Not on file documented as of this encounter Visit Diagnoses Not on filedocumented in this encounter Care Teams Wood Block Artist Relationship Specialty Start Date End Date Caridad Louis MD [address] [place] [address] PCP - General Internal Medicine 05/01/18 documented as of this encounter Additional Source Comments The information contained in this document represents components of the legal health record. It is not the complete legal health record.[facility]
--- OUTSIDE RECORDS SUMMARY | 2025-05-12 15:26 | XMS_ITS | Patient Health Record ---
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) Active confirmed Problem Body mass index 40+ - morbidly obese (630169363) Body mass index [BMI] 50.0-59.9, adult (Z68.43) Active confirmed Plan Of Treatment No Information Insurance Providers Payer Name Payer Address Payer Phone Subscriber Number Group Number Insured Name Patient Relationship to Insured Coverage Start Date Coverage End Date [employer] [address] [address] [place] [address] [id number] Lisa Foss Self - patient is the [...] following gastric bypass COVID vaccinated X 2 (CORP80) and [address] (CORP80) Surgical History Surgery Date(Month/Year) colonoscopy 08/24/2020, 11/27/2016, [...]
--- OUTSIDE RECORDS SUMMARY | 2025-05-12 15:26 | XMS_ITS | Clinical Summary ---
Author Organization [facility] Address [address] [place] [address] Care Team Providers Care Mains And Service Supervisor Name Role Phone Caridad Louis MD Primary Care Provider +1- [phone] Allergies Active Allergy Reactions Criticality Noted Date [...] 05/16/2010 05/16/2000 Colon Cancer Screening (Colonoscopy) 12/02/2019 Breast Cancer Screening (Mammogram) 2024 Shingrix-Zoster Vaccine (1 of 2) 2024 COVID-19 Vaccine ( season) 2025 06/24/2021, 09/20/2020, 08/30/2020 Influenza Vaccine (#1) 2025 0, 06/23/2019, 05/21/2018, Additional history exists Pneumococcal Vaccine Aged Out 07/16/2017 No long er eligible based on patient's age to complete this topic RSV Ped < 20 months Aged Out No longe r eligible based on patient's age to complete this topic Care Teams Mains And Service Supervisor Relationship Specialty Start Date End Date Caridad Louis MD [address] [place] [phone] PCP - General Internal Medicine 12/21/21
--- OUTSIDE RECORDS SUMMARY | 2025-05-12 15:26 | XMS_ITS | Encounter Summary ---
Author Organization [facility] Address [address] [address] Phone Care Team Providers Care Materials Clerk Name Role Phone Caridad Louis MD Primary Care Provider + Reason for Referral * Consultation (Within 1 month) - Closed Specialty Diagnoses / Procedures Referred By Megha franco Referred To Contact Gastroenterology Diagnoses Abdominal pain, unspecified abdominal location Persistent vomiting Caridad Louis MD [address] [place] [address] Phone: tel: fax: Soto Noble MD, PhD Phone: tel: fax: [email or web address] Referral ID Status Reason Start Date Expiration Date Visits Re quested Visits Authorized [id number] Closed 12/15/2018 12/16/2019 1 1 Encounter Details Date Type Department Care Team (Latest Contact Info) Description 12/15/2018 Transcribe Orders [facility] [address] [place] [address], 5[address] [place] [address] Caridad Louis MD [address] [place] [address] Abdominal pain, unspecified abdominal location (Primary Dx); Persistent vomiting Social History Tobacco Use Types Packs/Day Years Used Date Smoking Tobacco: Never Assessed Comments Unknown Sex and Gender Information Value Date Recorded Sex Assigned at Not on file Legal Sex Female 2:34 PM EDT Gender Identity Not on file Sexual Orientation Not on file documented as of this encounter Plan of Treatment Scheduled Referrals Name Type Priority Associated Diagnoses Order Schedule [place]ulatory referral to [facility] (Consult Requests Only) Outpatient Referral Routine Abdominal pain, unspecified abdominal location Persistent vomiting Ordered: 12/15/2018 documented as of this encounter Visit Diagnoses Diagnosis Abdominal pain, unspecified abdominal location- Primary Persistent vomiting documented in this encounter Care Teams Materials Clerk Relationship Specialty Start Date End Date Caridad Louis MD [address] [place] [address] PCP - General Internal Medicine 05/01/18 documented as of this encounter Additional Source Comments The information contained in this document represents components of the legal health record. It is not the complete legal health record.[facility]
--- OUTSIDE RECORDS SUMMARY | 2025-05-12 15:26 | XMS_ITS | Encounter Summary ---
Author Organization [facility] Address [address] [place] [address] [place] [phone] Phone Care Team Providers Care Oracle Scm Consultant Name Role Phone Caridad Louis MD Primary Care Provider + Reason for Referral * Consultation (Elective) - Closed Specialty Diagnoses / Procedures Referred By Megha franco Referred To Contact Neurology Diagnoses Encounter for consultation System, Provider Not In, PhD [address] [address] Phone: tel: Referral ID Status Reason Start Date Expiration Date Visits Re quested Visits Authorized [id number] Closed 10/29/2018 10/29/2019 1 1 Encounter Details Date Type Department Care Team (Late st Contact Info) Description 10/29/2018 Transcribe Orders [facility] Department of Neurology [address] [facility], 8th Floor, [address] [place] [address] Caridad Louis MD [address] [place] [address] Encounter for consultation (Primary Dx) Social History Tobacco Use Types Packs/Day Years Used Date Smoking Tobacco: Never Assessed Comments Unknown Sex and Gender Information Value Date Recorded Sex Assigned at Not on file Legal Sex Female 2:34 PM EDT Gender Identity Not on file Sexual Orientation Not on file documented as of this encounter Plan of Treatment Scheduled Referrals Name Type Priority Associated Diagnoses Orde r Schedule Ambulatory referral to [facility] Neurology Outpatient Referral Routine Encounter for consultation Ordered: 10/29/2018 documented as of this encounter Visit Diagnoses Diagnosis Encounter for consultation- Primary documented in this encounter Care Teams Oracle Scm Consultant Relationship Specialty Start Date End Date Caridad Louis MD [address] [place] [address] PCP - General Internal Medicine 05/01/18 documented as of this encounter Additional Source Comments The information contained in this document represents components of the legal health record. It is not the complete legal health record.[facility]
--- OUTSIDE RECORDS SUMMARY | 2025-05-12 15:26 | XMS_ITS | Encounter Summary ---
Author Organization [facility] Address [address] [place] [address] Care Team Providers Care Stonecutter Name Role Phone Caridad Louis MD Primary Care Provider +1- [phone] Encounter Details Date Type Department Care Team (Late st Contact Info) Description 09/03/2024 [employer] Message [facility] Financial Counseling Department [address] [place] [address] Mychart, Generic Provider [address] [place], [place] [id number] Financial Assistance Social History Tobacco Use Types [...] on filedocumented in this encounter Care Teams Stonecutter Relationship Specialty Start Date End Date Caridad Louis MD [address] [place] [address] PCP - General Internal Medicine 05/05/24 documented as of this encounter
--- OUTSIDE RECORDS SUMMARY | 2025-05-12 15:27 | XMS_ITS | Clinical Summary ---
Author Organization [facility] Address [address] [place] [address] Care Team Providers Care Subpoena Server Name Role Phone Caridad Louis MD Primary [...] Vaccine, 23 Valent 07/16/2017 Pneumococcal conjugate PCV20,polysaccharide [id number] conjugate, adjuvant, PF (Prevnar 20) 12/20/2022 Tetanus [...] 64 10/27/2024 4:07 PM EST Temperature 36.6 C (97.9 F) 10/27/2024 4:07 PM EST Respiratory Rate 16 10/27/2024 4:07 PM EST [...] Pap Smear 1974 Sigmoidoscopy 1974 Mammogram 2014 Alcohol/Substance Use Screening 09/02/2024 Depression Screening and Follow-Up 09/02/2024 Social Drivers of Health Jaycee ual Screening 09/02/2024 Zoster Vaccines (1 of 2) 2024 COVID-19 Vaccine (4 - 2024-2 6 season) 2025 06/24/2021, 09/20/2020, 08/30/2020 Influenza Vaccine (#1) 2025 3, 06/12/2021, 06/04/2020, Additional history exists Diabetes Screening 10/27/2027 10/27/2024, 0 10/12/2024, 08/04/2024 DTaP,Tdap,and Td Vaccines (4 - Td or Tdap) 12/20/2032 12/20/2022, 11/26/2011, 05/16/2000 RSV Vaccine (60+ years old a nd patients) (1 - 1-dose 75+ series) 2049 Hepatitis B Vaccines Completed 11/04/2012, 05/08/2012, 04/10/2012 Pneumococcal Vaccine: 50+ Years Completed 3, 07/16/2017 Procedures * Due to [place] state law, this organization might not be sharing negative HIV tests. Procedure Name Priority Date/Time Associated Diagnosis Comments POCT GLUCOSE Routine 10/27/2024 10:01 AM EST from Last 3 Months or Most Recently Relevant to Health Maintenance Results * Due to [place] [employer] law, this organization might not be sharing negative HIV tests. * (ABNORMAL) POCT Glucose, interfaced (10/27/2024 10:01 AM EST) [facility] Signature Glucose, POCT 105(H) 70 - 99 mg/dL 10/27/2024 10:02 AM EST [facility], [facility] Comment: The wool hat forming machine tender has not determined the efficacy of this test in Critically ill patients. [facility] defines Critically ill patients for the purpose of blood glucose monitoring (BGM) by glucometer, as patients meeting one or more of the following criteria: Hypotension- non-ICU patients (systolic blood pressure Less than 90 mmHg) due to shock Hypotension -ICU patients (Mean Arterial Pressure (MAP) <60 mmHg or systolic [...] LAB POCT ORDERABLES - DEVICE Final Result [facility], [facility] [address] [place] [address], [place] from Last 3 Months or Most Recently Relevant to Health Maintenance [place] [address] [place] [address] Advance Directives * Presumed Full Code (Latest Code Status on File) Date Activated Date Inactivated Comments 10/27/2024 10:29 AM 10/27/2024 9:21 PM * Presumed Full Code Date Activated Date Inactivated Comments 08/04/2024 8:56 AM 08/04/2024 3:36 PM Care Teams Subpoena Server Relationship Specialty Start Date End Date Caridad Louis MD [address] [place] [address] PCP - General Internal Medicine 05/05/24
--- OUTSIDE RECORDS SUMMARY | 2025-05-12 15:27 | XMS_ITS | Clinical Summary ---
Author Organization [facility] it Address [address] [place] [address] Care Team Providers Care Licensed Dispensing Optician Name Role Phone Caridad Louis MD Primary Care Provider +1- [phone] Encounters Date Type Department Care Team Description 03/18/2025 Telephone Bariatric Surgery - [place] [address] [facility] [address] [place] [address] Cielo Gabriel RN from Last 3 Months Surgical History Surgery Date Site/Laterality Comments COLONOSCOPY PROCEDURE: HISTORICAL COLONOSCOPY; COMMENT: 08/24/20, 11/27/16, 04/2013, 2007 ESOPHAGOGASTRODUODENOSCOPY 10/24/2018 PROCEDURE: [facility] ESOPHAGOGASTRODUODENOSCOPY TRANSORAL DIAGNOSTIC OTHER SURGICAL HISTORY 03/10/2018 PROCEDURE: [facility] RPR PARAESOPH HIATAL HERNIA W/LAPT W/O MESH OTHER SURGICAL HISTORY 05/23/2017 PROCEDURE: [facility] ENDOSCOPY UPPER SMALL INTESTINE BLADDER SURGERY 2016 PROCEDURE: HISTORICAL BLADDER SURGERY; COMMENT: Implantation of electronic stimulator ESOPHAGOGASTRODUODENOSCOPY 02/20/2016 PROCEDURE: [facility] ESOPHAGOGASTRODUODENOSCOPY TRANSORAL DIAGNOSTIC OTHER SURGICAL HISTORY 11/27/2016 PROCEDURE: [facility] ENDOSCOPY UPPER SMALL INTESTINE OTHER SURGICAL HISTORY 05/01/2012 PROCEDURE: [facility] EGD FLEXIBLE TRANSNASAL W/BIOPSY SINGLE/MULTIPLE CHOLECYSTECTOMY 06/02/2010 PROCEDURE: [facility] LAPAROSCOPY SURG CHOLECYSTECTOMY OTHER SURGICAL HISTORY 2000 PROCEDURE: [facility] LAPS GSTR RSTCV PX W/BYP ANDREW-EN-Y LIMB <150 CM EYE SURGERY 1979 Right PROCEDURE: HISTORICAL EYE SURGERY; COMMENT: Right eye strabismus surgery for amblyopia GASTRIC BYPASS PROCEDURE: [facility] GASTRIC RSTCV W/BYP W/SM INT RCNSTJ LIMIT [...] swelling LUQ pain DX:LUQ pain Mood disorder ([facility] V24) DX:M ood disorder ([facility]) Nausea DX:Nausea Neuropathy DX:Neuropathy Obstructive sleep apnea DX:Obstr uctive sleep apnea Otitis media of left ear DX:Otit is media of left ear Pneumonia DX:Pneumonia Recurrent UTI DX:Recurrent UTI Seasonal allergic rhinitis DX:Se asonal allergic rhinitis Severe obesity (CMS/HCC V24, CMS/HCC V28) DX:Severe obesity ([facility]) Thrombocytopenia (CMS/HCC V24) D X:Thrombocytopenia ([facility]) Vaginal discharge DX:Vaginal dis charge Weight gain following gastri c bypass surgery DX:Weight gain following gas tric bypass surgery Chest pain DX:Chest pain Non-cardiac chest pain DX:Non-ca rdiac chest pain Rectovaginal fistula DX:Rectovag inal fistula Low back pain DX:Low back pain Morbid obesity with BMI of 5 0.0-59.9, adult (CMS/HCC V24, CMS/HCC V28) DX:Morbid obesity wit h BMI of 50.0-59.9, adult ([facility]) Family History Medical History Relation Name Comments [...] 10/02/2019 Social Influencers of Health Screening 10/02/2019 Depression Screening 09/02/2024 Zoster Vaccines (1 of 2) 2024 COVID-19 Vaccine (4 - season) 2025 06/24/2021, 09/20/2020, 08/30/2020 Influenza Vaccine [...] age to complete this topic Care Teams Licensed Dispensing Optician Relationship Specialty Start Date End Date Caridad Louis MD [address] [place] [phone] PCP - General Internal Medicine 08/28/21
== END 2025-05-12 12:50 | disposition home or self-care (01) ==
LOC: HO.HOS 12:25
PROVIDERS: PCP Internal Medicine; Visit Provider Orthopaedic Surgery
DX: M25.311 Other instability, right shoulder (principal)
CPT/HCPCS: 99213

== ENCOUNTER 2025-05-24 08:27 | Outpatient (AMB) | payer OTHER, SELFPAY ==
[2025-05-24 08:31] VITALS: BP 117/66; PULSE 79; BMI 65.3
--- NOTE | 2025-05-24 08:31 | A.OFFVIS_ITS ---
Vital Signs 05/24/25 08:31 Height 5 ft 2 in Weight 357 lb 2.382 oz BMI 65.3 BP 117/66 Blood Pressure Location Lt radial Position Sitting Pulse 79 Intake Visit Reasons: f/u Intake Note: Lisa presents in the office as a follow up for nausea. CC: state that she has nausea and vomiting with pains in the stomach. Constipation every now and again. She states that she will go a couple days with no BM. Human Resources Benefits Administrator Required: No Allergies nitrofurantoin (From MACROBID) Allergy (Unknown, Verified 05/24/25 08:33) respiratory symptoms NSAIDS (Non-Steroidal Anti-Inflamma Adverse Reaction (Mild, Verified 05/24/25 08:33) Stomach issues Adhesive Tape Allergy (Intermediate, Uncoded 05/24/25 08:33) Hives SEASONAL ALLERGIES Allergy (Intermediate, Uncoded 05/24/25 08:33) respiratory symptoms HPI HPI f/u: Details: 49 yr old f w/ hx of gastric bypass, anastomotic ulcer, chronci gerd s/p hiatal hernia repair, DARRIUS< hypothyroidism, asthma seen for f/u RECAP; Main issue is ongoing nausea going on for years, can have vomiting 2-3 times/week, bilious colored no obvious provoking factors she also has luq pain goes to shoulder blade like a sharp pain, like someone grabbing on, sometimes burning no obvious trigger urine is normal after bladder stimulator stool is soft and normal no blood in stool appetite is not so good weight si stable due to ongoing sx tried her on lidocaine,benadryl/malloax mix she did have kenalog.lido injection didnt help she was given gabapentin small bowel series pending she was recovering from fistula surgery done 09/2020 gabapentin was given IX; CT A/P: 06/[address] EGD 10/2018--normal u/s doppler 08/2019-- poor quality due to habitus, but appeared normal capsule study negative push enteroscopy/colonoscopy--09/14/20-- some induration around GJ anastomosis I repeated an EGD 04/2022 due to worsening sx of abdominal pain and nausea/vomiting revealed a large anastomotic ulcer hiatal hernia Repeat EGD: 10/02/22 with ongoing presence of ulcer and erosion, erythema --carafate was increased INTERIM: She has been sick for 6 months now she has nausea and vomiting prior to that she had epigastric pain for 4 weeks seems to be triggered by foods, but it can vary from day to day headaches usu frontal no diplopia no focal weakness sometimes off balance denies tremor no speech problems toilet is variable, but usu goes daily stool looks normal, no blood she had gastric bypass, 1999 she is on oxycodone but only taken 3 days a week unable to go for GES she was tried on motegrity with mild improvement EGD 02/24 Impression/Findings: esophagitis patulous GEJ mild gastritis possible dysmotility colo 04/25 mild diverticulosis, polyps Imaging: CT 03/10/25: constipation, liver steatosis CT: 04/26 no acute changes EXAM: GENERAL: The patient is well developed and nontoxic. VITAL SIGNS:see workflow HEENT: Nonicteric sclerae, PERRLA, EOMI. Oropharynx clear. Moist mucous membranes. Conjunctivae appear well perfused. No thyroid mass. CHEST: Chest wall is nontender. HEART: Regular rate and rhythm without murmurs. LUNGS: Clear to auscultation bilaterally. ABDOMEN: Soft, positive bowel sounds, nontender, no organomegaly.no flank tenderness SKIN: No rash, no excessive bruising, petechiae, or purpura. NEUROLOGIC: Cranial nerves II-XII intact without motor/sensory deficit. unstable gait, mild intention tremor, KENDALL, unsteady with heel to toe, mild dyspraxia Psych: normal affect Assessments 1. Persistent nausea, also has gait instability and poor co ordination, headaches, r/o central causea, also vitamin defc like thiamine PLAN: 1/ cont esomeprazole, open capsule and mix with apple sauce, 2/ cont with motegrity 3/ vitamin levels 4/ MRI brain [facility] Medical History (Updated 05/24/25 @ 09:14 by Yvon Gomez MD) Urinary retention Obesity Recurrent UTI DARRIUS (obstructive sleep apnea) Neuropathy Hyperplastic adenomatous polyp of stomach Erosive esophagitis Chronic foot pain Chondromalacia patellae Cervical radiculopathy GERD (gastroesophageal reflux disease) Nausea & vomiting Skin ulcer of abdomen Asthma Encounter for insertion of mirena IUD DARRIUS on CPAP Urinary bladder disorder Hiatal hernia with GERD Rectovaginal fistula Contusion of right knee Gastritis Vomiting Heart murmur Bipolar depression Moderate asthma Surgical History (Updated 05/24/25 @ 08:34 by APARNA Macias) H/O eye surgery S/P implantation of urinary electronic stimulator device H/O hernia repair History of esophagogastroduodenoscopy (EGD) History of open reduction and internal fixation (ORIF) procedure History of colonoscopy H/O dilation and curettage Hx laparoscopic cholecystectomy Gastric bypass status for obesity (~1999) Family History Father Hx of type 1 diabetes mellitus Mother Hx of colon cancer, stage IV Social History Household Members: Spouse Are you a primary rn complex care to a significant other at home: No Do you presently have visiting nurse or other home services: No Alcohol intake: current Alcohol intake frequency: does not drink Comment: RIGHT KNEE CONTUSION Patient Tobacco Use Status: Former Tobacco user Tobacco use type: Cigarette Second Hand Smoke Exposure: No Physical Exam Vital Signs: Last Vital Signs Pulse 79 05/24/25 08:31 BP 117/66 05/24/25 08:31 BMI result Body Mass Index 65.3 Assessment & Plan Assessment & Plan (1) Gait instability: Code(s): R26.81 - Unsteadiness on feet Category: Medical Plan: as above (2) Nausea: Code(s): R11.0 - Nausea Category: Medical Plan: as above (3) Diarrhea: Code(s): R19.7 - Diarrhea, unspecified Category: Medical Plan: as above Orders: Orders MR head/brain wo/w con Today R11.0 - Nausea, R19.7 - Diarrhea, unspecified, R26.81 - Unsteadiness on feet Vitamin B12 and Folate Today R11.0 - Nausea, R19.7 - Diarrhea, unspecified Vitamin B5 (Pantothenic Acid) Today R11.0 - Nausea, R19.7 - Diarrhea, unspecified Vitamin D 25-OH Total Today R11.0 - Nausea, R19.7 - Diarrhea, unspecified Vitamin K1 Today E46 - Unspecified protein-calorie malnutrition, R11.0 - Nausea, R19.7 - Diarrhea, unspecified Ferritin Today R11.0 - Nausea, R19.7 - Diarrhea, unspecified Creatine Kinase Total Today R11.0 - Nausea, R19.7 - Diarrhea, unspecified Vitamin A Today R11.0 - Nausea, R19.7 - Diarrhea, unspecified Vitamin B1 Today R11.0 - Nausea, R19.7 - Diarrhea, unspecified Vitamin B3 (Niacin) Today R11.0 - Nausea, R19.7 - Diarrhea, unspecified Vitamin B6 Today R11.0 - Nausea, R19.7 - Diarrhea, unspecified Vitamin C Today R11.0 - Nausea, R19.7 - Diarrhea, unspecified Vitamin E Today R11.0 - Nausea, R19.7 - Diarrhea, unspecified Zinc Today R11.0 - Nausea, R19.7 - Diarrhea, unspecified Phosphorus Today E83.52 - Hypercalcemia, R11.0 - Nausea, R19.7 - Diarrhea, unspecified Magnesium Today R11.0 - Nausea, R19.7 - Diarrhea, unspecified Coding Level of Care Code Est Pt Level 4 (94155) Diagnoses Gait instability R26.81 Nausea R11.0 Diarrhea R19.7
--- OUTSIDE RECORDS SUMMARY | 2025-05-24 09:40 | XMS_ITS | Encounter Summary ---
Author Organization [facility] Address [address] [place] [phone] Phone Care Team Providers Care Nip Wrapper Name Role Phone Caridad Louis MD Primary Care Provider + Encounter Details Date Type Department Care Team (Late st Contact Info) Description 03/10/2019 Procedure Pass [facility] ENDO DEPT [address] [facility], 4th [place] [address] Social History Tobacco Use Types Packs/Day Years [...] on filedocumented in this encounter Care Teams Nip Wrapper Relationship Specialty Start Date End Date Caridad Louis MD [address] [place] [address] PCP - General Internal Medicine 05/01/18 documented as of this encounter Additional Source Comments The information contained in this document represents components of the legal health record. It is not the complete legal health record.[facility]
--- OUTSIDE RECORDS SUMMARY | 2025-05-24 09:40 | XMS_ITS | Clinical Summary ---
Author Organization [facility] Address [address] [facility] [address] [place] [address] Phone Care Team Providers Care Motor Vehicle Dispatcher Name Role Phone Caridad Louis MD Primary [...] GENERIC COMMERCIAL [place] [address] [place] [address] GENERIC COMMERCIAL GENERIC COMMERCIAL GENERIC COMMERCIAL GENERIC COMMERCIAL Care Teams Motor Vehicle Dispatcher Relationship Specialty Start Date End Date Caridad Louis MD [address] [place] [phone] PCP - General Internal Medicine 05/01/18 Additional Source Comments The information contained in this document represents components of the legal health record. It is not the complete legal health record.[facility]
--- OUTSIDE RECORDS SUMMARY | 2025-05-24 09:40 | XMS_ITS | Encounter Summary ---
Author Organization [facility] Address [address] [place] [address] Care Team Providers Care Cashier Checker Name Role Phone Caridad Louis MD Primary Care Provider +1- [phone] Encounter Details Date Type Department Care Team (Late st Contact Info) Description 09/03/2024 [place] Message [facility] Financial Counseling Department [address] [place] [id number] Mychart, Generic Provider [address] [place], [place] [id number] Financial Assistance Social History Tobacco Use Types [...] on filedocumented in this encounter Care Teams Cashier Checker Relationship Specialty Start Date End Date Caridad Louis MD [address] [place] [address] PCP - General Internal Medicine 05/05/24 documented as of this encounter
--- OUTSIDE RECORDS SUMMARY | 2025-05-24 09:41 | XMS_ITS | Encounter Summary ---
Author Organization [facility] Address [address] [address] Phone Care Team Providers Care Playground Director Name Role Phone Caridad Louis MD Primary Care Provider + Reason for Referral * Consultation (Within 1 month) - Closed Specialty Diagnoses / Procedures Referred By Megha franco Referred To Contact Gastroenterology Diagnoses Abdominal pain, unspecified abdominal location Persistent vomiting Caridad Louis MD [address] [place] [address] Phone: tel: fax: Soto Noble MD, PhD Phone: tel: fax: mailto:[email or web address] Referral ID Status Reason Start Date Expiration Date Visits Re quested Visits Authorized [id number] Closed 12/15/2018 12/16/2019 1 1 Encounter Details Date Type Department Care Team (Latest Contact Info) Description 12/15/2018 Transcribe Orders [facility] [address] [place] [address], [address] [place] [address] Caridad Louis MD [address] [place] [address] Abdominal pain, unspecified abdominal location (Primary Dx); [...] Associated Diagnoses Order Schedule Ambulatory referral to [facility] (Consult Requests Only) Outpatient Referral Routine Abdominal pain, unspecified abdominal location Persistent vomiting Ordered: 12/15/2018 documented as of this encounter Visit Diagnoses Diagnosis Abdominal pain, unspecified abdominal location- Primary Persistent vomiting documented in this encounter Care Teams Playground Director Relationship Specialty Start Date End Date Caridad Louis MD [address] [place] [address] PCP - General Internal Medicine 05/01/18 documented as of this encounter Additional Source Comments The information contained in this document represents components of the legal health record. It is not the complete legal health record.[facility]
--- OUTSIDE RECORDS SUMMARY | 2025-05-24 09:41 | XMS_ITS | Clinical Summary ---
Author Organization [facility] Address [address] [place] [address] Care Team Providers Care Document Control Specialist Name Role Phone Caridad Louis MD Primary Care Provider +1- [phone] Allergies Active Allergy Reactions Criticality Noted Date [...] age to complete this topic Care Teams Document Control Specialist Relationship Specialty Start Date End Date Caridad Louis MD [address] [place] [phone] PCP - General Internal Medicine 12/21/21
--- OUTSIDE RECORDS SUMMARY | 2025-05-24 09:41 | XMS_ITS | Encounter Summary ---
Author Organization [facility] Address [address] [place] [address] [place] [address] Phone Care Team Providers Care Returns Processor Name Role Phone Caridad Louis MD Primary Care Provider + Reason for Referral * Consultation (Elective) - Closed Specialty Diagnoses / Procedures Referred By Megha franco Referred To Contact Neurology Diagnoses Encounter for consultation System, Provider Not In, PhD [address] [address] Phone: tel: Referral ID Status Reason Start Date Expiration Date Visits Re quested Visits Authorized [id number] Closed 10/29/2018 10/29/2019 1 1 Encounter Details Date Type Department Care Team (Late st Contact Info) Description 10/29/[address] [facility] Department of Neurology [address] [facility], 8th Floor, [address] [place] [address] Caridad Louis MD [address] [place] [address] Encounter for consultation (Primary Dx) Social History [...] Diagnoses Orde r Schedule Ambulatory referral to [facility] Neurology Outpatient Referral Routine Encounter for consultation Ordered: 10/29/2018 documented as of this encounter Visit Diagnoses Diagnosis Encounter for consultation- Primary documented in this encounter Care Teams Returns Processor Relationship Specialty Start Date End Date Caridad Louis MD [address] [place] [address] PCP - General Internal Medicine 05/01/18 documented as of this encounter Additional Source Comments The information contained in this document represents components of the legal health record. It is not the complete legal health record.[facility]
--- OUTSIDE RECORDS SUMMARY | 2025-05-24 09:42 | XMS_ITS | Patient Health Record ---
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) Active confirmed Problem Osteoarthritis of left subtalar joint (0427868713395815 6) 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) Active confirmed Problem Body mass index 40+ - morbidly obese (282735386) Body mass index [BMI] 50.0-59.9, adult (Z68.43) Active confirmed Plan Of Treatment No Information Insurance Providers Payer Name Payer Address Payer Phone Subscriber Number Group Number Insured Name Patient Relationship to Insured Coverage Start Date Coverage End Date [employer] [address] [address] [place] [address] [id number] Lisa Foss Self - patient is the [...] following gastric bypass COVID vaccinated X 2 (Cignis) and [address] (Cignis) Surgical History Surgery Date(Month/Year) colonoscopy 08/24/2020, 11/27/2016, [...]
--- OUTSIDE RECORDS SUMMARY | 2025-05-24 09:42 | XMS_ITS | Clinical Summary ---
Author Organization [facility] Address [address] [place] [address] Care Team Providers Care President Celebrity Acquistion Name Role Phone Caridad Louis MD Primary [...] Vaccine, 23 Valent 07/16/2017 Pneumococcal conjugate PCV20,polysaccharide ADP522 conjugate, adjuvant, PF (Prevnar 20) 12/20/2022 Tetanus [...] Completed 3, 07/16/2017 Procedures * Due to [place] state law, this organization might not be sharing negative HIV tests. Procedure Name Priority Date/Time Associated Diagnosis Comments POCT GLUCOSE Routine 10/27/2024 10:01 AM EST from Last 3 Months or Most Recently Relevant to Health Maintenance Results * Due to [place] [employer] law, this organization might not be sharing negative HIV tests. * (ABNORMAL) POCT Glucose, interfaced (10/27/2024 10:01 AM EST) [facility] Signature Glucose, POCT 105(H) 70 - 99 mg/dL 10/27/2024 10:02 AM EST [facility], P[facility] Comment: The tripe scraper has not determined the efficacy of this test in Critically ill patients. [facility] defines Critically ill patients for the [...] POCT ORDERABLES - DEVICE Final Result [facility] [address] [place] [address], [place] from Last 3 Months or Most Recently Relevant to Health Maintenance Insurance [place] [address] [employer]EFIT [employer]MINISTRAT[employer] Advance Directives * Presumed Full Code (Latest Code Status on File) Date Activated Date Inactivated Comments 10/27/2024 10:29 AM 10/27/2024 9:21 PM * Presumed Full Code Date Activated Date Inactivated Comments 08/04/2024 8:56 AM 08/04/2024 3:36 PM Care Teams President Celebrity Acquistion Relationship Specialty Start Date End Date Caridad Louis MD [address] [place] [address] PCP - General Internal Medicine 05/05/24
--- OUTSIDE RECORDS SUMMARY | 2025-05-24 09:42 | XMS_ITS | Clinical Summary ---
Author Organization [facility] Address [address] [place] [address] Care Team Providers Care Press Loader Name Role Phone Caridad Louis MD Primary Care Provider +1- [phone] Encounters Date Type Department Care Team Description 03/18/2025 Telephone Bariatric Surgery - [place] [address] [facility] [address] [place] [address] Cielo Gabriel RN from Last 3 Months Surgical History Surgery Date Site/Laterality Comments COLONOSCOPY PROCEDURE: HISTORICAL COLONOSCOPY; COMMENT: 08/24/20, 11/27/16, 04/2013, 2007 ESOPHAGOGASTRODUODENOSCOPY 10/24/2018 PROCEDURE: ID ESOPHAGOGASTRODUODENOSCOPY TRANSORAL DIAGNOSTIC OTHER SURGICAL HISTORY 03/10/2018 PROCEDURE: ID RPR PARAESOPH HIATAL HERNIA W/LAPT W/O MESH OTHER SURGICAL HISTORY 05/23/2017 PROCEDURE: ID ENDOSCOPY UPPER SMALL INTESTINE BLADDER SURGERY 2016 PROCEDURE: HISTORICAL BLADDER SURGERY; COMMENT: Implantation of electronic stimulator ESOPHAGOGASTRODUODENOSCOPY 02/20/2016 PROCEDURE: ID ESOPHAGOGASTRODUODENOSCOPY TRANSORAL DIAGNOSTIC OTHER SURGICAL HISTORY 11/27/2016 PROCEDURE: ID ENDOSCOPY UPPER SMALL INTESTINE OTHER SURGICAL HISTORY 05/01/2012 PROCEDURE: ID EGD FLEXIBLE TRANSNASAL W/BIOPSY SINGLE/MULTIPLE CHOLECYSTECTOMY 06/02/2010 PROCEDURE: ID LAPAROSCOPY SURG CHOLECYSTECTOMY OTHER SURGICAL HISTORY 2000 PROCEDURE: ID LAPS GSTR RSTCV PX W/BYP ANDREW-EN-Y LIMB <150 CM EYE SURGERY 1979 Right PROCEDURE: HISTORICAL EYE SURGERY; COMMENT: Right eye strabismus surgery for amblyopia GASTRIC BYPASS PROCEDURE: ID GASTRIC RSTCV W/BYP W/SM INT RCNSTJ LIMIT [...] swelling LUQ pain DX:LUQ pain Mood disorder ([facility] V24) DX:M ood disorder ([facility]) Nausea DX:Nausea Neuropathy DX:Neuropathy Obstructive sleep apnea DX:Obstr uctive sleep apnea Otitis media of left ear DX:Otit is media of left ear Pneumonia DX:Pneumonia Recurrent UTI DX:Recurrent UTI Seasonal allergic rhinitis DX:Se asonal allergic rhinitis Severe obesity (CMS/HCC V24, CMS/HCC V28) DX:Severe obesity ([facility]) Thrombocytopenia (CMS/HCC V24) D X:Thrombocytopenia ([facility]) Vaginal discharge DX:Vaginal dis charge Weight gain following gastri c bypass surgery DX:Weight gain following gas tric bypass surgery Chest pain DX:Chest pain Non-cardiac chest pain DX:Non-ca rdiac chest pain Rectovaginal fistula DX:Rectovag inal fistula Low back pain DX:Low back pain Morbid obesity with BMI of 5 0.0-59.9, adult (CMS/HCC V24, CMS/HCC V28) DX:Morbid obesity wit h BMI of 50.0-59.9, adult ([facility]) Family History Medical History Relation Name [...] age to complete this topic Care Teams Press Loader Relationship Specialty Start Date End Date Caridad Louis MD [address] [place] [address] PCP - General Internal Medicine 08/28/21
== END 2025-05-24 09:12 | disposition home or self-care (01) ==
PROVIDERS: PCP Internal Medicine; Visit Provider Internal Medicine Gastroenterology
DX: R26.81 Unsteadiness on feet (principal); R11.0 Nausea; R19.7 Diarrhea, unspecified
CPT/HCPCS: 99214

== ENCOUNTER 2025-06-02 09:46 | Outpatient (AMB) | payer OTHER, SELFPAY ==
--- NOTE | 2025-06-02 09:54 | A.OFFVIS_ITS ---
Intake Visit Reasons: Inj-Bilateral Knee Durolane Intake Note: Lisa is a 49 year old female who presents with complaints of bilateral knee pains. She describes her pains as sharp in nature. She has failed the last 3 months of conservative treatment which has included Tylenol, anti-inflammatory medicines, a home exercise program and physical therapy exercises. She has had cortisone injections in the past which gave her minimal relief. She has not had a viscosupplementation injection. Allergies nitrofurantoin (From MACROBID) Allergy (Unknown, Verified 06/02/25 09:58) respiratory symptoms NSAIDS (Non-Steroidal Anti-Inflamma Adverse Reaction (Mild, Verified 06/02/25 09:58) Stomach issues Adhesive Tape Allergy (Intermediate, Uncoded 05/24/25 08:33) Hives SEASONAL ALLERGIES Allergy (Intermediate, Uncoded 05/24/25 08:33) respiratory symptoms Medication List - Last Reconciled 06/02/25 by Bill Saunders MD albuterol sulfate 90 mcg/actuation inhalation aripiprazole 20 mg PO DAILY clonazepam 1 tab PO BID PRN cyclobenzaprine 1 to 2 orally bedtime PRN; diclofenac sodium 3% 1 appl topical BID diphenoxylate-atropine 2.5-0.025 mg (Lomotil) 1 tab PO BID PRN esomeprazole magnesium 40 mg PO DAILY famotidine 40 mg PO BEDTIME lamotrigine 200 mg PO BID 30 days lamotrigine 25 mg PO BID ondansetron 8 mg PO Q8H PRN pregabalin 100 mg PO TID 15 days promethazine 50 mg PO BID PRN 2 days prucalopride (Motegrity) 2 mg PO DAILY scopolamine base 1 patch transdermal Q3D PRN sertraline 50 mg PO DAILY sucralfate (Carafate) 1 g PO QID 30 days tizanidine 2 mg PO BID PRN PFSH Medical History (Updated 05/24/25 @ 09:14 by Yvon Gomez MD) Urinary retention Obesity Recurrent UTI DARRIUS (obstructive sleep apnea) Neuropathy Hyperplastic adenomatous polyp of stomach Erosive esophagitis Chronic foot pain Chondromalacia patellae Cervical radiculopathy GERD (gastroesophageal reflux disease) Nausea & vomiting Skin ulcer of abdomen Asthma Encounter for insertion of mirena IUD DARRIUS on CPAP Urinary bladder disorder Hiatal hernia with GERD Rectovaginal fistula Contusion of right knee Gastritis Vomiting Heart murmur Bipolar depression Moderate asthma Surgical History (Updated 05/24/25 @ 08:34 by APARNA Macias) H/O eye surgery S/P implantation of urinary electronic stimulator device H/O hernia repair History of esophagogastroduodenoscopy (EGD) History of open reduction and internal fixation (ORIF) procedure History of colonoscopy H/O dilation and curettage Hx laparoscopic cholecystectomy Gastric bypass status for obesity (~1999) Family History Father Hx of type 1 diabetes mellitus Mother Hx of colon cancer, stage IV Social History Household Members: Spouse Are you a primary career development associate to a significant other at home: No Do you presently have visiting nurse or other home services: No Alcohol intake: current Alcohol intake frequency: does not drink Comment: RIGHT KNEE CONTUSION Patient Tobacco Use Status: Former Tobacco user Tobacco use type: Cigarette Second Hand Smoke Exposure: No Physical Exam Const Other: Well-nourished well-developed very friendly female awake alert and oriented x3 in no acute distress Extrem Other: Bilateral knee examination shows minimal effusions, palpable crepitus with range of motion, pain with range motion, no instability Office Procedures AMB Joint Injection/Aspiration Joint Injection/Aspiration Primary Site: left knee Prep: site was prepped using aseptic technique Injected: 60 mg of (Durolane viscosupplementation) and 1% plain lidocaine Procedure: The patient tolerated the procedure well Coding 77962 - Large joint Procedure code (CPT) selection complete AMB Joint Injection/Aspiration Joint Injection/Aspiration Primary Site: right knee Prep: site was prepped using aseptic technique Injected: 60 mg of (Durolane viscosupplementation) and 1% plain lidocaine Procedure: The patient tolerated the procedure well Coding 44959 - Large joint Procedure code (CPT) selection complete Results Reviewed Results Reviewed: X-rays of the patient's bilateral knees taken previously show joint space narrowing, subchondral sclerosis, no acute bony abnormalities Assessment & Plan Assessment & Plan (1) Osteoarthritis of left knee: Code(s): M17.12 - Unilateral primary osteoarthritis, left knee Category: Medical (2) Osteoarthritis of right knee: Code(s): M17.11 - Unilateral primary osteoarthritis, right knee Category: Medical Plan Mrs. Foss presents with progressively worsening bilateral knee pains due to osteoarthritis. The risks and benefits of bilateral knee Durolane viscosupplementation injections were discussed at length with the patient. The patient wished to proceed. She tolerated the injections well. She will continue with her home exercise program. She will contact me prior to her follow-up appointment in 3 months should any questions or concerns arise. Feel free to call me at any time should questions regarding her orthopedic management arise. I spent 22 minutes in reviewing the patient's records and imaging studies, seeing the patient and documenting in the medical record. Orders: Orders AMB Joint Injection/Aspiration Today M17.12 - Unilateral primary osteoarthriti s, left knee AMB Joint Injection/Aspiration Today M17.11 - Unilateral primary osteoarthritis, right knee Coding Level of Care Code Est Pt Level 3 (87537) Complex EM visit Add On G2211 Diagnoses Osteoarthritis of left knee M17.12 Osteoarthritis of right knee M17.11 CPT Codes Coding - 89194 Large joint: 70504 - Large joint ([id number]) Coding - 97946 Large joint: 07306 - Large joint ([id number])
--- OUTSIDE RECORDS SUMMARY | 2025-06-02 10:41 | XMS_ITS | Encounter Summary ---
Author Organization [facility] Address [address] [place] [address] Care Team Providers Care Key Account Executive Name Role Phone Caridad Louis MD Primary Care Provider +1- [phone] Encounter Details Date Type Department Care Team (Late st Contact Info) Description 09/03/2024 [employer] Message [facility] Financial Counseling Department [address] [place] [id number] Mychart, Generic Provider [address] [place], [place] [id number] Financial Assistance Social History Tobacco Use Types [...] on filedocumented in this encounter Care Teams Key Account Executive Relationship Specialty Start Date End Date Caridad Louis MD [address] [place] [address] PCP - General Internal Medicine 05/05/24 documented as of this encounter
--- OUTSIDE RECORDS SUMMARY | 2025-06-02 10:41 | XMS_ITS | Clinical Summary ---
Author Organization [facility] Address [address] [facility] [address] [place] [phone] Phone Care Team Providers Care Dog Licenser Name Role Phone Caridad Louis MD Primary [...] GENERIC COMMERCIAL [place] [address] [place] [address] GENERIC COMMERCIAL GENERIC COMMERCIAL GENERIC COMMERCIAL GENERIC COMMERCIAL Care Teams Dog Licenser Relationship Specialty Start Date End Date Caridad Louis MD [address] [place] [id number] PCP - General Internal Medicine 05/01/18 Additional Source Comments The information contained in this document represents components of the legal health record. It is not the complete legal health record.[facility]
--- OUTSIDE RECORDS SUMMARY | 2025-06-02 10:42 | XMS_ITS | Clinical Summary ---
Author Organization [facility] Address [address] [place] [address] Care Team Providers Care Brain Wave Technician Name Role Phone Caridad Louis MD Primary Care Provider +1- [phone] Allergies Active Allergy Reactions Criticality Noted Date [...] age to complete this topic Care Teams Brain Wave Technician Relationship Specialty Start Date End Date Caridad Louis MD [address] [place] [phone] PCP - General Internal Medicine 12/21/21
--- OUTSIDE RECORDS SUMMARY | 2025-06-02 10:42 | XMS_ITS | Encounter Summary ---
Author Organization [facility] Address [address] [place] [phone] Phone Care Team Providers Care Loan Underwriter Name Role Phone Caridad Louis MD Primary Care Provider + Encounter Details Date Type Department Care Team (Late st Contact Info) Description 03/10/2019 Procedure Pass [facility] 4 ENDO DEPT [address] [facility], [address] [place] [address] Social History Tobacco Use Types Packs/Day Years [...] on filedocumented in this encounter Care Teams Loan Underwriter Relationship Specialty Start Date End Date Caridad Louis MD [address] [place] [address] PCP - General Internal Medicine 05/01/18 documented as of this encounter Additional Source Comments The information contained in this document represents components of the legal health record. It is not the complete legal health record.[facility]
--- OUTSIDE RECORDS SUMMARY | 2025-06-02 10:42 | XMS_ITS | Clinical Summary ---
Author Organization [facility] Address [address] [place] [address] Care Team Providers Care Check Grader Name Role Phone Caridad Louis MD Primary [...] Vaccine, 23 Valent 07/16/2017 Pneumococcal conjugate PCV20,polysaccharide [id number] conjugate, adjuvant, PF (Prevnar 20) 12/20/2022 Tetanus [...] Completed 3, 07/16/2017 Procedures * Due to [place] state law, this organization might not be sharing negative HIV tests. Procedure Name Priority Date/Time Associated Diagnosis Comments POCT GLUCOSE Routine 10/27/2024 10:01 AM EST from Last 3 Months or Most Recently Relevant to Health Maintenance Results * Due to [place] [employer] law, this organization might not be sharing negative HIV tests. * (ABNORMAL) POCT Glucose, interfaced (10/27/2024 10:01 AM EST) [facility] Signature Glucose, POCT 105(H) 70 - 99 mg/dL 10/27/2024 10:02 AM EST [facility], POC Comment: The dental sales representative has not determined the efficacy of this test in Critically ill patients. [facility] defines Critically ill patients for the [...] POCT ORDERABLES - DEVICE Final Result [facility], [facility] [address] [place] [address], [place] from Last 3 Months or Most Recently Relevant to Health Maintenance [place] [address] [place] [address] [employer] Advance Directives * Presumed Full Code (Latest Code Status on File) Date Activated Date Inactivated Comments 10/27/2024 10:29 AM 10/27/2024 9:21 PM * Presumed Full Code Date Activated Date Inactivated Comments 08/04/2024 8:56 AM 08/04/2024 3:36 PM Care Teams Check Grader Relationship Specialty Start Date End Date Caridad Louis MD [address] [place] [address] PCP - General Internal Medicine 05/05/24
--- OUTSIDE RECORDS SUMMARY | 2025-06-02 10:42 | XMS_ITS | Encounter Summary ---
Author Organization [facility] Address [address] [address] Phone Care Team Providers Care Hospital Education Coordinator Name Role Phone Caridad Louis MD Primary Care Provider + Reason for Referral * Consultation (Within 1 month) - Closed Specialty Diagnoses / Procedures Referred By Megha franco Referred To Contact Gastroenterology Diagnoses Abdominal pain, unspecified abdominal location Persistent vomiting Caridad Louis MD [address] [place] [address] Phone: tel: fax: Soto Noble MD, PhD Phone: tel: fax: [email or web address] Referral ID Status Reason Start Date Expiration Date Visits Re quested Visits Authorized [id number] Closed 12/15/2018 12/16/2019 1 1 Encounter Details Date Type Department Care Team (Latest Contact Info) Description 12/15/2018 Transcribe Orders [facility] [address] [place] [address], [address] [place] [address] Caridad Louis MD [address] [place] [address] Abdominal pain, unspecified abdominal location (Primary Dx); [...] Associated Diagnoses Order Schedule Ambulatory referral to [facility] Gastroenterology (Consult Requests Only) Outpatient Referral Routine Abdominal pain, unspecified abdominal location Persistent vomiting Ordered: 12/15/2018 documented as of this encounter Visit Diagnoses Diagnosis Abdominal pain, unspecified abdominal location- Primary Persistent vomiting documented in this encounter Care Teams Hospital Education Coordinator Relationship Specialty Start Date End Date Cardiad Louis MD [address] [place] [address] PCP - General Internal Medicine 05/01/18 documented as of this encounter Additional Source Comments The information contained in this document represents components of the legal health record. It is not the complete legal health record.[facility]
--- OUTSIDE RECORDS SUMMARY | 2025-06-02 10:42 | XMS_ITS | Data Portability ---
Author Organization [place] [facility] Conrado Osullivan [place] Address [address] [place] [address] Assessment Encounter Date Assessment Date Assessment LastModified by Organization Details LastModified Time 12/19/2022 12/19/2022 This is a pleasant 47-year-old female who suffered a twisting injury on 12/17/2022 with findings consistent of lateral collateral ligament sprain with arthritic flare and joint effusion. I had a lengthy discussion with the patient regarding management. We discussed holding off on cortisone injection due to the acute injury. She was amenable to aspiration for which she gave verbal consent the procedure was carried out. The patient tolerated the procedure well with notable improvement regarding her range of motion as well as her discomfort with ambulation and weightbearing. We did discuss double hinged knee brace for which she was amenable to she was appropriately fitted and noted significant improvement regarding her comfort level. We did discuss physical therapy for which we will hold at this time. We discussed rest, ice, compression and elevation. She will continue with Tylenol 1000 mg every 8 hours as needed for pain OTC. I like to reevaluate her in 2 weeks. I will give her a work note since her activity requires her to bend down in various positions. After reassessment we will change her work status as indicated. We will not exclude advanced imaging however her moderately severe arthritis is likely flared. We will consider cortisone injection if indicated. If her symptoms worsen or do not improve she should contact my office. She agrees with the above-noted plan. We did review the imaging studies and treatment plan in detail for which she agrees upon. Indirect care and treatment in conjunction with Dr. Kincaid Additional treatment plan discussed with the patient in detail included the following; - Provider focused nonsteroidal anti-inflammator y regimen (discussed were the pros, cons, benefits and risks as well as any black box warnings) - Analgesic pain medication for pain suppression (discussed were the pros, cons, benefits and risks as well as any black box warnings) - The use of topical pain relieving medication were discussed - The use of ice to decrease inflammation and pain - The use of assistive ambulatory devices for ambulation and fall prevention - Formal specific guided physical therapy program I reviewed my findings at length with the patient today. We discussed the nature and etiology of this problem along with current treatment options. We discussed the expected course and outcomes and what to expect. We also discussed risks and benefits. All of their questions were answered today, and there was exhibited understanding and comprehension of all that was discussed. 10 minutes were spent reviewing previous imaging and charting. 10 minutes were spent obtaining patient history. 5 minutes were spent on physical exam. 5minutes were spent explaining diagnosis and assessment. Today's documentation was made using voice recognition software. This note may contain grammatical errors secondary to the software. Not available 12/19/2022 19:54:25 01/02/2023 01/02/2023 47-year-old female at her 2-week follow-up after having a twisting injury of her right knee. She has had ongoing lingering symptoms. We discussed other treatment modalities such as the following; 1. Physical therapy 2 times a week x6 weeks she will hold at this time 2. Cortisone injection. She opted for cortisone injection after verbal consent was obtained. The procedure was carried out the right knee. The patient tolerated the procedure well. Aftercare instructions were discussed in detail. 3. Calf pain I will send her for stat duplex ultrasound to rule out DVT. The patient is aware if this is positive she has to go to the ER for further work-up. If it is negative she can go home. Appointment scheduled for 3:00 this afternoon at [facility]. Patient is in not in any acute distress and no shortness of breath. I will write her a work note for today since she will be going for the ultrasound which will take up the remainder of the day. Indirect care and treatment in conjunction with Dr. Kincaid Additional treatment plan discussed with the patient in detail included the following; - Provider focused nonsteroidal anti-inflammator y regimen (discussed were the pros, cons, benefits and risks as well as any black box warnings) in patients over 60 years old they should be very cautious in taking these medications due to potential decreased kidney function and or elevated blood pressure. - Analgesic pain medication for pain suppression (discussed were the pros, cons, benefits and risks as well as any black box warnings) - The use of topical pain relieving medication were discussed - The use of ice to decrease inflammation and pain - The use of assistive ambulatory devices for ambulation and fall prevention - Formal specific guided physical therapy program I reviewed my findings at length with the patient today. We discussed the nature and etiology of this problem along with current treatment options. We discussed the expected course and outcomes and what to expect. We also discussed risks and benefits. All of their questions were answered today, and there was exhibited understanding and comprehension of all that was discussed. 10 minutes were spent reviewing previous imaging and charting. 10 minutes were spent obtaining patient history. 5 minutes were spent on physical exam. 5minutes were spent explaining diagnosis and assessment. Today's documentation was made using voice recognition software. This note may contain grammatical errors secondary to the software. [email or web address] Not available 01/02/2023 13:20:25 Plan of Treatment Reminders Order Date Submit Date Provider Last Modified By Organization Details Last Modified Time Details Appointments None recorded. Lab None recorded. Referral None recorded. Procedures None recorded. Surgeries None recorded. Imaging US, duplex, venous, lower extremity - New onset right calf pain family history of DVT. If positive send patient to emergency department 2022 023 ANTWAN Not available 3 15:14:15 Medication Orders Kenalog 40 mg/mL suspension for injection 2022 023 [email or web address] [id number], [phone] [place], [address], 3 13:18:54 lidocaine (PF) 10 mg/mL (1 %) injection solution 2022 023 [email or web address] [id number], [phone] [place], [address], 3 13:18:54 Patient TargetsNo targets recorded. Patient Instructions Encounter Date Encounter Id Patient Instructions Last Modified By Organization Details Last Modified Time 12/19/2022 [id number] The patient's history and physical exam are consistent with a right LCL sprain. The nature of this injury and treatment options were discussed with the patient. The patient understands that most LCL injuries heal over time with conservative treatment. Initial symptoms may include pain with walking and bending, instability, and swelling. These symptoms are best treated with ice, rest, NSAIDs, and a knee brace. Most LCL injuries take at least 6 weeks to heal. Physical therapy is usually prescribed during the healing process to help strengthen the knee. Patients are often able to return to sports or their activities once there is no pain or instability. Not available 12/19/2022 19:55:23 Reason for Referral None Reported. Results Created Date Observation Date Name Description Value Unit Range Abnormal Flag Note LastModifiedBy Organization Detail LastModifiedTime 01/03/20 23 US, tyesha x, barbara s, lower extre mity No observ ation record ed. [email or web address] Not Available 01/02 15:14:15 Result Notes None recorded. Problems Name Problem SNOMED Code Status Onset Date Resolution Date Notes Provider Name and Address Organization Details Recorded Time Sprain of lateral collateral ligament of right knee joint 4468299020611 9104 Active 2022 EMELINA SANTOS PA-C [address],[place] [facility], [place], [address], [place] [facility] [place] 3 19:51:21 Pain of right calf 3593427100693 103 Active 2022 EMELINA SANTOS PA-C [address],[place] [facility], [place], [address], [place] [facility] [place], [facility] 3 13:11:32 Problem Notes None recorded. Procedures Surgical History Date Name Laterality Status Provider Name and Address Organization Details Recorded Time 01/02/2023 Knee Joint/Burs a Asp & Inj completed EMELINA SANTOS PA-C [address],[place] [facility], [place], [address], [place] [facility] [place], [facility] 01/02/2023 13:19:35 12/19/2022 Knee Joint/Burs a Asp & Inj completed EMELINA SANTOS PA-C [address], [place], [address], [place] [facility] [place], [facility] 12/19/2022 19:56:53 Imaging Results None recorded. Procedure Notes None recorded. Medical Equipment None Reported. Allergies Allergen ID Allergen Name Allergen Category Reaction Reaction Severity Criticality Documentation Date Start Date Code Code System Note Provider Name and Address Organization Details Recorded Time 125714 nitrofura ntoin medicatio n Not available Not available Not available 05/25/20252018 7454 RxNorm React ion: Anaph ylaxi s, sever ity: Unkno wn;Re actio n: Itchi ng, sever ity: Unkno wn;Re actio n: Other (See Comme nts), sever ity: Unkno wn;Di fficu lty breat noe Not Available [facility] 01:32:16 2631 Non-stero idal anti-infl ammatory agent (substanc e) medicatio n Not available Not available Not available 12/19/2022 86350 5008 SNOMED Nancy Anne null, [place] - [facility] [place], [facility] 3 14:47:20 2632 Macrobid medicatio n Not available Not available Not available 12/19/2022 26246 1 RxNorm Nancy Anne null, [place] - [facility] [place], [facility] 3 14:47:26 Medications Name Sig Start Date Stop Date Status Note LastModified by Organization Details LastModified Time amoxicillin 500 mg capsule TAKE 2 CAPSULES BY MOUTH NOW, THEN TAKE 1 CAPSULE BY MOUTH EVERY 8 HRS TILL FINISHED active Not Available Not Available No t Available furosemide 40 mg tablet Take 40 mg by mouth. 2020 active Not Available Not Available Not Avai lable metformin 500 mg tablet Take 1 tablet by mouth daily. active Not Available Not Available No t Available prednisone 10 mg tablet TAKE 4 TABS X 3 DAYS, THEN 3 TABS X 3 DAYS,THEN 2 TABS X 3 DAYS, THEN 1 TAB X 3 DAYS active Not Available Not Available No t Available ipratropium 0.5 mg-albutero l 3 mg (2.5 mg base)/3 mL nebulizatio n soln INHALE THE CONTENTS OF 1 VIAL VIA NEBULIZER 4 TIMES A DAY NEEDED WHEEZING/ SHORTNESS OF BREATH active Not Available Not Available No t Available tizanidine 2 mg tablet TAKE 1-2 TABLETS BY MOUTH 3 TIMES A DAY NEEDED FOR MODERATE PAIN active Not Available Not Available No t Available loperamide 2 mg capsule active Not Available Not Available Not Available trazodone 50 mg tablet TAKE 1 TABLET BY MOUTH AT BEDTIME NEEDED MAY REPEAT IF FIRST TABLET NOT EFFECTIVE active Not Available Not Available No t Available fluconazole 150 mg tablet TAKE 1 TABLET BY MOUTH EVERY 48 HOURS active Not Available Not Available No t Available Nystop 100,000 unit/gram topical powder APPLY TO AFFECTED AREA TWICE A DAY active Not Available Not Available No t Available prochlorper azine maleate 5 mg tablet TAKE 1 TABLET BY MOUTH 4 TIMES A DAY NEEDED FOR NAUSEA AND VOMITING active Not Available Not Available No t Available sucralfate 1 gram tablet TAKE 1 TABLET BY MOUTH TWICE A DAY active Not Available Not Available No t Available ondansetron HCl 4 mg tablet TAKE 1 TABLET BY MOUTH 3 TIMES A DAY X 5 DAYS NEEDED FOR NAUSEA active Not Available Not Available No t Available famotidine 40 mg tablet TAKE 1 TABLET BY MOUTH AT BEDTIME active Not Available Not Available No t Available prednisone 20 mg tablet TAKE 1 TABLET BY MOUTH EVERY DAY FOR 5 DAYS active Not Available Not Available No t Available clonazepam 1 mg tablet TAKE 1 TABLET BY MOUTH TWICE A DAY NEEDED FOR ANXIETY FOR 14 DAYS active Not Available Not Available No t Available loperamide 2 mg tablet Take 1 tablet by mouth 4 (four) times a day. 2020 active Not Available Not Available Not Avai lable cyanocobala min (vit B-12) 1,000 mcg tablet Take 1,000 mcg by mouth. 2019 active Not Available Not Available Not Avai lable metronidazo le 500 mg tablet TAKE 1 TABLET BY MOUTH EVERY 8 HOURS active Not Available Not Available No t Available ciprofloxac in 250 mg tablet TAKE 1 TABLET BY MOUTH TWICE A DAY FOR 7 DAYS WITH FOOD active Not Available Not Available No t Available sulfamethox azole 800 mg-trimetho prim 160 mg tablet TAKE 1 TABLET BY MOUTH TWICE A DAY active Not Available Not Available No t Available omeprazole 40 mg capsule,del ayed release MIX CONTENTS OF 1 CAPSULE INTO APPLESAUC E AND EAT. DO THIS TWICE DAILY active Not Available Not Available No t Available tramadol 50 mg tablet TAKE 1 TO 2 TABLETS BY MOUTH 3 TIMES A DAY NEEDED FOR PAIN active Not Available Not Available No t Available triamcinolo ne acetonide 0.1 % topical cream active Not Available Not Available Not Available ondansetron 8 mg disintegrat ing tablet DISSOLVE 1 TAB BY MOUTH EVERY 8 HOURS active Not Available Not Available No t Available lamotrigine 25 mg tablet TAKE 1 TABLET BY MOUTH EVERY MORNING AND TAKE 2 TABLETS EVERY EVENING active Not Available Not Available No t Available Kenalog 40 mg/mL suspension for injection Take 1 mL by injection route. 2022 active Not Available Not Available Not Avai lable oxycodone-a cetaminophe n 5 mg-325 mg tablet TAKE 1-2 TABLET BY MOUTH TWICE DAILY NEEDED FOR PAIN active Not Available Not Available No t Available hydromorpho ne 2 mg tablet TAKE 1 TABLET BY MOUTH 2 TIMES A DAY X 7 DAYS NEEDED FOR PAIN active Not Available Not Available No t Available sodium bicarbonate 650 mg tablet TAKE 1 TABLET BY MOUTH TWICE A DAY active Not Available Not Available No t Available meclizine 25 mg tablet TAKE 1 TABLET BY MOUTH 3 TIMES A DAY NEEDED FOR DIZZINESS active Not Available Not Available No t Available baclofen 10 mg tablet TAKE 1 TAB ONCE DAILY NEEDED FOR PAIN MAY CAUSE SEDATION DO NOT TAKE AT SAME TIME OXYCODONE active Not Available Not Available No t Available doxycycline monohydrate 100 mg capsule active Not Available Not Available Not Available cephalexin 500 mg capsule TAKE 1 CAPSULE BY MOUTH THREE TIMES A DAY FOR 7 DAYS active Not Available Not Available No t Available methylpredn isolone acetate 40 mg/mL suspension for injection 01/12 completed Not Available Not Available Not Available oseltamivir 75 mg capsule TAKE 1 CAPSULE BY MOUTH TWICE A DAY FOR 5 DAYS active Not Available Not Available No t Available esomeprazol e magnesium 40 mg capsule,del ayed release TAKE 1 CAPSULE BY MOUTH 2 TIMES A DAY OPEN CAPSULE AND MIX WITH APPLE SAUCE active Not Available Not Available No t Available betamethaso ne, augmented 0.05 % topical ointment APPLY TO AFFECTED AREA TWICE A DAY FOR 3 DAYS active Not Available Not Available No t Available gabapentin 300 mg capsule TAKE 2 CAPS BY MOUTH EVERY MORNING AND EVENING WELL 3 CAPS BY MOUTH EVERY DAY AT BEDTIME active Not Available Not Available No t Available sertraline 25 mg tablet Take 25 mg by mouth daily. active Not Available Not Available No t Available ibuprofen 600 mg tablet TAKE 1 TABLET BY MOUTH EVERY 6 HOURS NEEDED FOR PAIN MAX 2400 MG/DAY active Not Available Not Available No t Available scopolamine 1 mg over 3 days transdermal patch APPLY 1 PATCH TRANSDERM ALLY EVERY 3 DAYS NEEDED FOR NAUSEA AND VOMITING active Not Available Not Available No t Available methylpredn isolone 4 mg tablets in a dose pack active Not Available Not Available Not Available albuterol sulfate HFA 90 mcg/actuati on aerosol inhaler INHALE 2 PUFFS BY MOUTH 4 TIMES A DAY NEEDED FOR WHEEZING/ SHORTNESS OF BREATH (USE SPACER CHAMBER active Not Available Not Available No t Available clotrimazol e 1 % topical cream APPLY TO AFFECTED AREA TWICE A DAY FOR 14 DAYS active Not Available Not Available No t Available sertraline 50 mg tablet TAKE 1 TABLET BY MOUTH EVERY DAY active Not Available Not Available No t Available lamotrigine 100 mg tablet Take 100 mg by mouth. active Not Available Not Available No t Available diazepam 5 mg tablet active Not Available Not Available No t Available oxycodone 5 mg tablet TAKE 1 TABLET BY MOUTH EVERY 6 HOURS NEEDED FOR MODERATE POST-OP PAIN FOR 7 DAYS active Not Available Not Available No t Available aripiprazol e 15 mg tablet Take 15 mg by mouth daily. 2021 active Not Available Not Available Not Avai lable aripiprazol e 20 mg tablet TAKE 1 TABLET BY MOUTH EVERY DAY active Not Available Not Available No t Available aripiprazol e 5 mg tablet TAKE 1 TABLET BY MOUTH ONCE A DAY WITH 15 MG TAB FOR 20 MG TOTAL DAILY active Not Available Not Available No t Available lidocaine (PF) 10 mg/mL (1 %) injection solution Take 1 mL by injection route. 2022 active Not Available Not Available Not Avai lable Symbicort 160 mcg-4.5 mcg/actuati on HFA aerosol inhaler PLEASE SEE ATTACHED FOR DETAILED DIRECTION S active Not Available Not Available No t Available cholecalcif priscilla (vitamin D3) 1,250 mcg (50,000 unit) capsule TAKE 1 CAPSULE BY MOUTH ONCE WEEKLY FOR 12 DOSES active Not Available Not Available No t Available butalbital- acetaminoph en-caffeine 50 mg-300 mg-40 mg capsule TAKE 1 CAPSULE BY MOUTH EVERY 6 HOURS NEEDED. active Not Available Not Available No t Available Antacid-Ant igas 200 mg-200 mg-20 mg/5 mL oral suspension GIVE 10 ML 4 TIMES A DAY NEEDED FOR INDIGESTI ON ADMINISTE R BETWEEN MEALS AND AT BEDTIME active Not Available Not Available No t Available Vitals Date Recorded Body height Body mass index (BMI) Body weight Provider Name and Address Organization Details Last Updated DateTime 12/19/2022 157.48 cm 57.8 kg/m2 910538.[address] [place] [facility] 12/19/2022 14:48:12 Social History None recorded. Functional Status Question Answer Note LastModified by Organizat ion Details LastModified Time Do you use any illicit or recreational drugs? No [email or web address] Information not available 12/19/2022 Do you or have you ever used any other forms of tobacco or nicotine? No [email or web address] Information not available 12/19/2022 What is your level of alcohol consumption? None [email or web address] Information not available 12/19/2022 Mental Status None recorded. Family History Relationship Description Onset Age of this Age Resolved Age Notes LastModified by Organization Details LastModified Time Mother Family history of malignant neoplasm Not available 2022 14:48:51 Medical History Condition Response Anemia Y Asthma Y Hypertension Y Gynecological HistoryNo gynecological history recorded. Obstetrics History GPAL:G 0 P 0 0 0 0 Past Encounters Encounter ID Performer Location Encounter Start Date Encounter Closed Date Diagnosis/Indication Diagnosis SNOMED-CT Code Diagnosis ICD10 Code Diagnosis IMO Codes Diagnosis Note [id number] [facility] [address] [place] [address] 12/19/2022 14:32:55 12/19/2022 15:14:51 Sprain of lateral collateral ligament of right knee joint [id number] 5519289 S83.91XA [id number] [facility] [facility] [address] [place] [address] 01/02/2023 12:52:58 01/02/2023 13:20:33 Pain of right calf [id number] 782390 M79.661 Pain of ri ght knee joint [id number] 03160 M25.561 Health Concerns Section Related Observation LastModified by Organization Detai ls LastModified Time None Recorded Concern Status LastModified by Organization Details LastModified Time None Recorded Advance Directives Directive None Recorded Payers Insurance Date Sequence Insurance Name Policy Number Policy Canales Covered Member ID Canales Member ID Guarantor Name 01/27/2023 1 ARA (POS) [id number] Digna Foss [id number] Dign[employer] Foss Notes Date Note Type Note Provider Name and Address Organization Details Recorded Time 3 text/html This is a pleasant 47-year-old female that was last seen on 04/17/2022 with history of right knee pain due to osteoarthritis. She has been doing overall well up until recently for which she states she was leaving her house walking in which she twisted her right knee on 12/17/2021 for which she had severe pain which prompted her to go to [facility]'s ER. Patient states she was told that she had a sprain there is no obvious fracture. She states initially her pain was 10 out of 10 however has gone down to approximately a 7 out of 10. She is weightbearing without the use of crutches however they did give her a cane. She is taking Tylenol which gives her some symptomatic relief. She is unable to take nonsteroidal anti-inflammatories due to gastric bypass and history of gastric ulcers. She is here for evaluation treatment. I personally reviewed these x-rays in the [facility] PACS system and agree with the below noted findings. [facility] [address] [place] [address] Pat ient: DIGNA FOSS/Age/Sex: 1975 - FUnit#: [id number] Location/Status: SPER/PRE ERAccount#: [id number] Mnemonic/[facility]ing [facility] ER,DOC CR Knee RT 4 or More Views - 12/17/22 - 0801HISTORY: The patient is a 47-year-old female with right knee pain,nontraumatic.FINDINGS: AP, lateral, internal rotation, external rotation views of theright knee are obtained. The study demonstrates no fracture or dislocation.There is narrowing of both the medial and lateral compartments of thefemoral-tibial joint space as well as narrowing of the patellar-femoraljoint space. Osteophytes arise from the medial and lateral tibial plateaus,anterior and posterior aspects of the tibial plateau, medial femoralcondyle, upper and lower poles of the patella, and anterior and posteriorsupracondylar regions of the femur. These findings are consistent withmoderately severe osteoarthritis and have mildly progressed since the priorstudy of 04/20/2014. No joint effusion or other soft tissue abnormality isseen.IMPRESSION: No acute findings. Moderately severe osteoarthritis, mildlyprogressive since 04/20/2014.Code [id number] Physician: TAPAN LOVETT MDElectronically Signed by: TAPAN LOVETT [facility] Date/Time: 12/17/22804Sign date/Time: 12/17/22 08 EMELINA SANTOS PA-C [address] [place] [address], [address], [place] [facility] 12/19/2022 19:58:33 3 text/html Assessment & Plan: Date of visit 12/19/2022This is a pleasant 47-year-old female who suffered a twisting injury on 12/17/2022 with findings consistent of lateral collateral ligament sprain with arthritic flare and joint effusion. I had a lengthy discussion with the patient regarding management. We discussed holding off on cortisone injection due to the acute injury. She was amenable to aspiration for which she gave verbal consent the procedure was carried out. The patient tolerated the procedure well with notable improvement regarding her range of motion as well as her discomfort with ambulation and weightbearing. We did discuss double hinged knee brace for which she was amenable to she was appropriately fitted and noted significant improvement regarding her comfort level. We did discuss physical therapy for which we will hold at this time. We discussed rest, ice, compression and elevation. She will continue with Tylenol 1000 mg every 8 hours as needed for pain OTC. I like to reevaluate her in 2 weeks. I will give her a work note since her activity requires her to bend down in various positions. After reassessment we will change her work status as indicated. We will not exclude advanced imaging however her moderately severe arthritis is likely flared. We will consider cortisone injection if indicated. If her symptoms worsen or do not improve she should contact my office. She agrees with the above-noted plan. We did review the imaging studies and treatment plan in detail for which she agrees upon. HPI:Patient seen on the above-noted date of 12/19/2022 with a twisting injury of the right knee.Treatment at that time as follows; 1. Aspiration of the right knee2. Right knee bracing3. OTC Tylenol 1000 mg every 8 hours as needed4. Physical therapy (patient declined at that time) Patient has noted some improvement however she does have going lingering symptoms.She describes her pain is medial in nature with notable discomfort with any type of torsion or bending. She denies any fevers or chills or any warmth overlying the right knee joint here for follow-up evaluation and treatment plan. She denies shortness of breath however she does have intermittent posterior calf pain. She denies any history of DVT however she does have a strong family history of DVT. EMELINA SANTOS PA-C [address] [place] [address],[facility] [address], [place], [address], [place] - [facility], P 01/02/2023 13:20:34 OBGyn Episode No OBEpisode recorded.
--- OUTSIDE RECORDS SUMMARY | 2025-06-02 10:42 | XMS_ITS | Patient Health Record ---
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) Active confirmed Problem Body mass index 40+ - morbidly obese (067587114) Body mass index [BMI] 50.0-59.9, adult (Z68.43) Active confirmed Plan Of Treatment No Information Insurance Providers Payer Name Payer Address Payer Phone Subscriber Number Group Number Insured Name Patient Relationship to Insured Coverage Start Date Coverage End Date [employer] [address] [address] [place] [address] [phone] [id number] Lisa Foss Self - patient is the [...] following gastric bypass COVID vaccinated X 2 ([place]) and [address] ([place]) Surgical History Surgery Date(Month/Year) colonoscopy 08/24/2020, 11/27/2016, [...]
--- OUTSIDE RECORDS SUMMARY | 2025-06-02 10:42 | XMS_ITS | Clinical Summary ---
Author Organization [facility] it Address [address] [place] [address] Care Team Providers Care Grain Broker And Market Operator Name Role Phone Caridad Louis MD Primary Care Provider +1- [phone] Encounters Date Type Department Care Team Description 03/18/2025 Telephone Bariatric Surgery - [place] [address] [facility] [address] [place] [address] Cielo Gabriel RN from Last 3 Months Surgical History Surgery Date Site/Laterality Comments COLONOSCOPY PROCEDURE: HISTORICAL COLONOSCOPY; COMMENT: 08/24/20, 11/27/16, 04/2013, 2007 ESOPHAGOGASTRODUODENOSCOPY 10/24/2018 PROCEDURE: [place] ESOPHAGOGASTRODUODENOSCOPY TRANSORAL DIAGNOSTIC OTHER SURGICAL HISTORY 03/10/2018 PROCEDURE: [place] RPR PARAESOPH HIATAL HERNIA W/LAPT W/O MESH OTHER SURGICAL HISTORY 05/23/2017 PROCEDURE: [place] ENDOSCOPY UPPER SMALL INTESTINE BLADDER SURGERY 2016 PROCEDURE: HISTORICAL BLADDER SURGERY; COMMENT: Implantation of electronic stimulator ESOPHAGOGASTRODUODENOSCOPY 02/20/2016 PROCEDURE: AZ ESOPHAGOGASTRODUODENOSCOPY TRANSORAL DIAGNOSTIC OTHER SURGICAL HISTORY 11/27/2016 PROCEDURE: [place] ENDOSCOPY UPPER SMALL INTESTINE OTHER SURGICAL HISTORY 05/01/2012 PROCEDURE: [place] EGD FLEXIBLE TRANSNASAL W/BIOPSY SINGLE/MULTIPLE CHOLECYSTECTOMY 06/02/2010 PROCEDURE: [place] LAPAROSCOPY SURG CHOLECYSTECTOMY OTHER SURGICAL HISTORY 2000 PROCEDURE: [place] LAPS GSTR RSTCV PX W/BYP ANDREW-EN-Y LIMB <150 CM EYE SURGERY 1979 Right PROCEDURE: HISTORICAL EYE SURGERY; COMMENT: Right eye strabismus surgery for amblyopia GASTRIC BYPASS PROCEDURE: [place] GASTRIC RSTCV W/BYP W/SM INT RCNSTJ LIMIT [...] swelling LUQ pain DX:LUQ pain Mood disorder ([facility] V24) DX:M ood disorder ([facility]) Nausea DX:Nausea Neuropathy DX:Neuropathy Obstructive sleep apnea DX:Obstr uctive sleep apnea Otitis media of left ear DX:Otit is media of left ear Pneumonia DX:Pneumonia Recurrent UTI DX:Recurrent UTI Seasonal allergic rhinitis DX:Se asonal allergic rhinitis Severe obesity (CMS/HCC V24, CMS/HCC V28) DX:Severe obesity ([facility]) Thrombocytopenia (CMS/HCC V24) D X:Thrombocytopenia ([facility]) Vaginal discharge DX:Vaginal dis charge Weight gain following gastri c bypass surgery DX:Weight gain following gas tric bypass surgery Chest pain DX:Chest pain Non-cardiac chest pain DX:Non-ca rdiac chest pain Rectovaginal fistula DX:Rectovag inal fistula Low back pain DX:Low back pain Morbid obesity with BMI of 5 0.0-59.9, adult (CMS/HCC V24, CMS/HCC V28) DX:Morbid obesity wit h BMI of 50.0-59.9, adult ([facility]) Family History Medical History Relation Name Comments [...] of 2) 2024 COVID-19 Vaccine (4 - 2024- season) 2025 06/24/2021, 09/20/2020, 08/30/2020 Influenza Vaccine (#1) 2025 3, 06/12/2021, 06/04/2020, Additional history exists DTaP,Tdap,and Td Vaccines (4 - Td or Tdap) 12/20/2032 12/20/2022, 11/26/2011, 05/16/2000 RSV Immunization Adult Patients (1 - 1-dose 75+ series) 2049 Hepatitis [...] age to complete this topic Care Teams Grain Broker And Market Operator Relationship Specialty Start Date End Date Caridad Louis MD [address] [place] [address] PCP - General Internal Medicine 08/28/21
--- OUTSIDE RECORDS SUMMARY | 2025-06-02 10:42 | XMS_ITS | Encounter Summary ---
Author Organization [facility] Address [address] [place] [address] [place] [address] Phone Care Team Providers Care Home Staging Specialist Name Role Phone Caridad Louis MD Primary Care Provider + Reason for Referral * Consultation (Elective) - Closed Specialty Diagnoses / Procedures Referred By Megha franco Referred To Contact Neurology Diagnoses Encounter for consultation System, Provider Not In, PhD [address] [address] Phone: tel: Referral ID Status Reason Start Date Expiration Date Visits Re quested Visits Authorized [id number] Closed 10/29/2018 10/29/2019 1 1 Encounter Details Date Type Department Care Team (Late st Contact Info) Description 10/29/2018 Transcribe Orders [facility] Department of Neurology [address] [facility], 8th Floor, [address] [place] [address] Caridad Louis MD [address] [place] [address] Encounter for consultation (Primary Dx) Social History [...] Diagnoses Orde r Schedule Ambulatory referral to [facility] Neurology Outpatient Referral Routine Encounter for consultation Ordered: 10/29/2018 documented as of this encounter Visit Diagnoses Diagnosis Encounter for consultation- Primary documented in this encounter Care Teams Home Staging Specialist Relationship Specialty Start Date End Date Caridad Louis MD [address] [place] [address] PCP - General Internal Medicine 05/01/18 documented as of this encounter Additional Source Comments The information contained in this document represents components of the legal health record. It is not the complete legal health record.[facility]
== END 2025-06-02 10:30 | disposition home or self-care (01) ==
LOC: HO.HOS 09:46
PROVIDERS: PCP Internal Medicine; Visit Provider Orthopaedic Surgery
DX: M17.0 Bilateral primary osteoarthritis of knee (principal)
CPT/HCPCS: 20610; 99213

== ENCOUNTER → 2025-06-02 09:46 | Outpatient (BNVA) | payer OTHER, SELFPAY | PROVIDERS: PCP Internal Medicine; Visit Provider Orthopaedic Surgery | DX: M17.0 Bilateral primary osteoarthritis of knee (principal) | CPT/HCPCS: 20610; J2003; J7318 ==

== ENCOUNTER 2025-06-07 10:23 | Outpatient (REF) | payer OTHER, SELFPAY ==
--- OUTSIDE RECORDS SUMMARY | 2025-06-07 12:11 | XMS_ITS | Encounter Summary ---
Author Organization [facility] Address [address] [address] Phone Care Team Providers Care Vamp Seamer Name Role Phone Caridad Louis MD Primary Care Provider + Reason for Referral * Consultation (Within 1 month) - Closed Specialty Diagnoses / Procedures Referred By Megha franco Referred To Contact Gastroenterology Diagnoses Abdominal pain, unspecified abdominal location Persistent vomiting Caridad Louis MD [address] [place] [address] Phone: tel: fax: Soto Noble MD, PhD Phone: tel: fax: mailto:[email or web address] Referral ID Status Reason Start Date Expiration Date Visits Re quested Visits Authorized [id number] Closed 12/15/2018 12/16/2019 1 1 Encounter Details Date Type Department Care Team (Latest Contact Info) Description 12/15/2018 Transcribe Orders [facility] [address] [place] [address], 5th [place] [address] Caridad Louis MD [address] [place] [address] Abdominal pain, unspecified abdominal location (Primary Dx); [...] Associated Diagnoses Order Schedule Ambulatory referral to [facility] Gastroenterology (Consult Requests Only) Outpatient Referral Routine Abdominal pain, unspecified abdominal location Persistent vomiting Ordered: 12/15/2018 documented as of this encounter Visit Diagnoses Diagnosis Abdominal pain, unspecified abdominal location- Primary Persistent vomiting documented in this encounter Care Teams Vamp Seamer Relationship Specialty Start Date End Date Caridad Louis MD [address] [place] [address] PCP - General Internal Medicine 05/01/18 documented as of this encounter Additional Source Comments The information contained in this document represents components of the legal health record. It is not the complete legal health record.[facility]
--- OUTSIDE RECORDS SUMMARY | 2025-06-07 12:11 | XMS_ITS | Encounter Summary ---
Author Organization [facility] Address [address] [place] [address] Phone Care Team Providers Care E Commerce Solution Architect Name Role Phone Caridad Louis MD Primary Care Provider + Encounter Details Date Type Department Care Team (Late st Contact Info) Description 03/10/2019 Procedure Pass [facility] 4 ENDO DEPT [address] [facility], 4th [place] [address] Social History Tobacco Use Types Packs/Day Years [...] on filedocumented in this encounter Care Teams E Commerce Solution Architect Relationship Specialty Start Date End Date Caridad Louis MD [address] [place] [address] PCP - General Internal Medicine 05/01/18 documented as of this encounter Additional Source Comments The information contained in this document represents components of the legal health record. It is not the complete legal health record.[facility]
--- OUTSIDE RECORDS SUMMARY | 2025-06-07 12:11 | XMS_ITS | Clinical Summary ---
Author Organization [facility] Address [address] [place] [address] Care Team Providers Care Experimental Outboard Motors Mechanic Name Role Phone Caridad oLuis MD Primary Care Provider +1- [phone] Allergies Active Allergy Reactions Criticality Noted Date [...] age to complete this topic Care Teams Experimental Outboard Motors Mechanic Relationship Specialty Start Date End Date Caridad Louis MD [address] [place] [phone] PCP - General Internal Medicine 12/21/21
--- OUTSIDE RECORDS SUMMARY | 2025-06-07 12:11 | XMS_ITS | Encounter Summary ---
Author Organization [facility] Address [address] [place] [address] Care Team Providers Care Pipe And Tank Fabricator Name Role Phone Caridad Louis MD Primary Care Provider +1- [phone] Encounter Details Date Type Department Care Team (Late st Contact Info) Description 09/03/2024 [place] Message [facility] Financial Counseling Department [address] [place] [address] Mychart, Generic Provider [address] [place], [place] [id number] Financial Assistance Social History Tobacco Use Types [...] on filedocumented in this encounter Care Teams Pipe And Tank Fabricator Relationship Specialty Start Date End Date Caridad Louis MD [address] [place] [address] PCP - General Internal Medicine 05/05/24 documented as of this encounter
--- OUTSIDE RECORDS SUMMARY | 2025-06-07 12:11 | XMS_ITS | Clinical Summary ---
Author Organization [facility] Address [address] [employer] [facility] [address] [place] [address] Phone Care Team Providers Care Machine Fixer Name Role Phone Caridad Louis MD Primary [...] GENERIC COMMERCIAL [place] [address] [place] [address] GENERIC COMMERCIAL GENERIC COMMERCIAL GENERIC COMMERCIAL GENERIC COMMERCIAL Care Teams Machine Fixer Relationship Specialty Start Date End Date Caridad Louis MD [address] [place] [address] PCP - General Internal Medicine 05/01/18 Additional Source Comments The information contained in this document represents components of the legal health record. It is not the complete legal health record.[facility]
--- OUTSIDE RECORDS SUMMARY | 2025-06-07 12:11 | XMS_ITS | Encounter Summary ---
Author Organization [facility] Address [address] [place] [address] [place] [address] Phone Care Team Providers Care Coin Purse Assembler Name Role Phone Caridad Louis MD Primary Care Provider + Reason for Referral * Consultation (Elective) - Closed Specialty Diagnoses / Procedures Referred By Megha franco Referred To Contact Neurology Diagnoses Encounter for consultation System, Provider Not In, PhD [address] [address] Phone: tel: Referral ID Status Reason Start Date Expiration Date Visits Re quested Visits Authorized [id number] Closed 10/29/2018 10/29/2019 1 1 Encounter Details Date Type Department Care Team (Late st Contact Info) Description 10/29/2018 Transcribe Orders [facility] Department of Neurology [address] [facility], 8th Floor, [address] [place] [address] Caridad Louis MD [address] [place] [address] Encounter for consultation (Primary Dx) Social History [...] Diagnoses Orde r Schedule Ambulatory referral to [facility] Neurology Outpatient Referral Routine Encounter for consultation Ordered: 10/29/2018 documented as of this encounter Visit Diagnoses Diagnosis Encounter for consultation- Primary documented in this encounter Care Teams Coin Purse Assembler Relationship Specialty Start Date End Date Caridad Louis MD [address] [place] [address] PCP - General Internal Medicine 05/01/18 documented as of this encounter Additional Source Comments The information contained in this document represents components of the legal health record. It is not the complete legal health record.[facility]
--- OUTSIDE RECORDS SUMMARY | 2025-06-07 12:11 | XMS_ITS | Clinical Summary ---
Author Organization [facility] it Address [address] [place] [address] Care Team Providers Care Traveling Crane Operator Name Role Phone Caridad Louis MD Primary Care Provider +1- [phone] Encounters Date Type Department Care Team Description 03/18/2025 Telephone Bariatric Surgery - [place] [address] [facility] [address] [place] [address] Cielo Gabriel RN from Last [...] swelling LUQ pain DX:LUQ pain Mood disorder ([facility] V24) DX:M ood disorder ([facility]) Nausea DX:Nausea Neuropathy DX:Neuropathy Obstructive sleep apnea DX:Obstr uctive sleep apnea Otitis media of left ear DX:Otit is media of left ear Pneumonia DX:Pneumonia Recurrent UTI DX:Recurrent UTI Seasonal allergic rhinitis DX:Se asonal allergic rhinitis Severe obesity (CMS/HCC V24, CMS/HCC V28) DX:Severe obesity ([facility]) Thrombocytopenia (CMS/HCC V24) D X:Thrombocytopenia ([facility]) Vaginal discharge DX:Vaginal dis charge Weight gain following gastri c bypass surgery DX:Weight gain following gas tric bypass surgery Chest pain DX:Chest pain Non-cardiac chest pain DX:Non-ca rdiac chest pain Rectovaginal fistula DX:Rectovag inal fistula Low back pain DX:Low back pain Morbid obesity with BMI of 5 0.0-59.9, adult (CMS/HCC V24, CMS/HCC V28) DX:Morbid obesity wit h BMI of 50.0-59.9, adult ([facility]) Family History Medical History Relation Name Comments [...] Last Done Comments Breast Cancer Screening 1974 Colorectal Cancer Screening: Colonoscopy 1974 Cervical Cancer Screening: Pap Smear 12/02/1995 Cholesterol Screening (Lipid Panel) 10/02/2019 HIV Screening 10/02/2019 Hepatitis C Screening [...] age to complete this topic Care Teams Traveling Crane Operator Relationship Specialty Start Date End Date Caridad Louis MD [address] [place] [address] PCP - General Internal Medicine 08/28/21
--- OUTSIDE RECORDS SUMMARY | 2025-06-07 12:11 | XMS_ITS | Patient Health Record ---
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) Active confirmed Problem Body mass index 40+ - morbidly obese (267175422) Body mass index [BMI] 50.0-59.9, adult (Z68.43) Active confirmed Plan Of Treatment No Information Insurance Providers Payer Name Payer Address Payer Phone Subscriber Number Group Number Insured Name Patient Relationship to Insured Coverage Start Date Coverage End Date [employer] [address] [address] [place] [address] [id number] Lisa Foss Self - patient is the [...] following gastric bypass COVID vaccinated X 2 ([employer]) and [address] ([employer]) Surgical History Surgery Date(Month/Year) colonoscopy 08/24/2020, 11/27/2016, [...]
--- OUTSIDE RECORDS SUMMARY | 2025-06-07 12:12 | XMS_ITS | Clinical Summary ---
Author Organization [facility] Address [address] [place] [address] Care Team Providers Care Ship Steward Name Role Phone Caridad Louis MD Primary [...] Vaccine, 23 Valent 07/16/2017 Pneumococcal conjugate PCV20,polysaccharide [id number] conjugate, adjuvant, PF (Prevnar 20) 12/20/2022 Tetanus [...] Completed 3, 07/16/2017 Procedures * Due to [place] state law, this organization might not be sharing negative HIV tests. Procedure Name Priority Date/Time Associated Diagnosis Comments POCT GLUCOSE Routine 10/27/2024 10:01 AM EST from Last 3 Months or Most Recently Relevant to Health Maintenance Results * Due to [place] [employer] law, this organization might not be sharing negative HIV tests. * (ABNORMAL) POCT Glucose, interfaced (10/27/2024 10:01 AM EST) [facility] Signature Glucose, POCT 105(H) 70 - 99 mg/dL 10/27/2024 10:02 AM EST [facility], POC Comment: The science instructor has not determined the efficacy of this test in Critically ill patients. [facility] defines Critically ill patients for the purpose [...] POCT ORDERABLES - DEVICE Final Result [facility] [address] [place] [address], [place] from Last 3 Months or Most Recently Relevant to Health Maintenance [place] [address] [place] [address] [place] [address] Advance Directives * Presumed Full Code (Latest Code Status on File) Date Activated Date Inactivated Comments 10/27/2024 10:29 AM 10/27/2024 9:21 PM * Presumed Full Code Date Activated Date Inactivated Comments 08/04/2024 8:56 AM 08/04/2024 3:36 PM Care Teams Ship Steward Relationship Specialty Start Date End Date Caridad Louis MD [address] [place] [address] PCP - General Internal Medicine 05/05/24
== END 2025-06-07 10:24 | disposition home or self-care (01) ==
LOC: HO.MRI 10:23
PROVIDERS: Visit Provider Orthopaedic Surgery
DX: Z13.89 Encounter for screening for other disorder (principal)

== ENCOUNTER 2025-06-22 12:46 | Outpatient (AMB) | payer OTHER, SELFPAY ==
--- NOTE | 2025-06-22 13:01 | A.OFFPC_ITS ---
Vital Signs 06/22/25 13:03 Height 5 ft 2 in Weight 362 lb 2 oz BMI 66.2 BP 124/86 Blood Pressure Location Lt radial Position Sitting Respiration 16 Pulse 90 Pulse Source Pulse Oximeter Temp 97.9 F Temp Source Oral Pulse Oximetry (%) 96 Oxygen Delivery Method Room Air Intake Visit Reasons: Routine Mailing Machine Operator Required: No Accompanied by: Self / Same As Patient Allergies nitrofurantoin (From MACROBID) Allergy (Unknown, Verified 06/22/25 13:01) respiratory symptoms NSAIDS (Non-Steroidal Anti-Inflamma Adverse Reaction (Mild, Verified 06/22/25 13:01) Stomach issues Adhesive Tape Allergy (Intermediate, Uncoded 05/24/25 08:33) Hives SEASONAL ALLERGIES Allergy (Intermediate, Uncoded 05/24/25 08:33) respiratory symptoms Medication List - Last Reconciled 06/22/25 by Caridad Louis MD albuterol sulfate 90 mcg/actuation inhalation aripiprazole 20 mg PO DAILY clonazepam 1 tab PO BID PRN cyclobenzaprine 1 to 2 orally bedtime PRN; diclofenac sodium 3% 1 appl topical BID diphenoxylate-atropine 2.5-0.025 mg (Lomotil) 1 tab PO BID PRN esomeprazole magnesium 40 mg PO DAILY famotidine 40 mg PO BEDTIME lamotrigine 200 mg PO BID 30 days loperamide 2 mg PO Q6H PRN mirtazapine mg PO ondansetron 8 mg PO Q8H PRN pregabalin 100 mg PO TID 15 days promethazine 50 mg PO BID PRN 2 days scopolamine base 1 patch transdermal Q3D PRN sertraline 50 mg PO DAILY sucralfate (Carafate) 1 g PO QID 30 days Tobacco use date assessed: 06/22/25 Dental Screening Dental Screen Date: 06/22/25 Did you have a dental visit in the last 12 months?: Yes Did you have a dental problem in the last 6 months where you did not have access to dental care?: No Was dental information given to patient?: Patient has dentist HPI HPI Comments History of Present Illness Details History of Present Illness The patient is a 49-year-old female presenting with ongoing pain and fatigue as her primary reason for this follow-up visit. She reports chronic pain, and additionally highlights persistent fatigue despite utilizing her CPAP machine effectively. The patient mentions no significant sleep disturbances, although she is consistently tired. The patient is experiencing significant digestive issues attributed to suspected gastroparesis. She reports an inability to consume and retain food, leading to vomiting. This issue has worsened over time sometimes related to stress. The patient undergoes psychiatric treatment, currently prescribed clonazepam 1 mg twice daily as needed, Abilify 20 mg, lamotrigine 200 mg, mirtazapine 15 mg disintegrating tablets at nighttime. Patient continues with her regular therapy sessions, which are done through telehealth every week. She has been experiencing dizziness and imbalance,. Consequently, a head MRI has been ordered by GI specialist to explore potential neurological causes. Asthma-stable Anemia- ongoing fatigue symptoms noted Chronic bilateral foot pain/presumed small fiber neuropathy- uses percocet prn Care Team Dr. Rowland-[facility] pulmonology Dr. Booker- [facility] colorectal Past Medical History Gastritis, IBS, anxiety, depression, sleep apnea, recurrent nausea, possible small fiber neuropathy REVIEW OF SYSTEMS - General: Reports fatigue - HEENT: Denies headache - Respiratory: Reports no significant is sues - Gastrointestinal: Reports nausea, vomi ting, constipation alternating with diarrhea - Neurological: Reports dizziness, imbal ance - Psychiatric: Reports mood issues, on m ultiple psychiatric medications PHYSICAL EXAMINATION General: NAD Chest: CTABL. Card: normal s1, s2, no m/r/g Abd: SNTND, +BS Extremities: no edema Neuro: AOX3 Assessment and Plan 1. Chronic Pain Evaluated ongoing pain management approaches with current regimen and may consider other options. 2. Fatigue Investigated for possible adrenal/thyroid dysfunction with targeted lab tests. 3. Gastroparesis Continue nutritional support efforts and gastroenterological collaboration. 4. Depression Advised ongoing prescribed psychiatric medications and therapy. 5. Neurological Disorder Proceed with ordered MRI to rule out central issues causing dizziness and imbalance. 6. Nausea and Vomiting Maintain scopolamine patches and zofran 7. Dizziness ensure adequate hydration 8. Imbalance Pending MRI. Discussion Notes During the visit, I explained the significance of conducting a head MRI to determine any central causes for her dizziness and coordination issues, emphasizing the importance of such diagnostics in guided symptom alleviation. We discussed the care strategies for her symptoms of fatigue, suggesting chair installer cortisol testing to explore endocrine dysfunctions. I highlighted dietary solutions like Ensure Clear to support her gastroparesis management. Patient Instructions - Continue prescribed medications for pa in and psychiatric symptoms. - Attend MRI appointment for head evon g as scheduled. - Plan for chair installer lab work includ ing cortisol test - Maintain nutritional intake with appro myranda supplements like Ensure Clear. - Regular telehealth therapy sessions on ce a week. - Observe any changes in symptoms, parti cularly nausea, dizziness, and imbalance, and report promptly. - Schedule follow-up appointments and la b tests as discussed. [facility] Medical History (Updated 06/22/25 @ 14:48 by Caridad Louis MD) Chronic pain of both feet Fatigue Therapeutic drug monitoring Diarrhea LUQ pain RUQ pain Anemia Urinary retention Obesity Recurrent UTI DARRIUS (obstructive sleep apnea) Neuropathy Hyperplastic adenomatous polyp of stomach Erosive esophagitis Chronic foot pain Chondromalacia patellae Cervical radiculopathy GERD (gastroesophageal reflux disease) Nausea & vomiting Skin ulcer of abdomen Asthma Encounter for insertion of mirena IUD DARRIUS on CPAP Urinary bladder disorder Hiatal hernia with GERD Rectovaginal fistula Contusion of right knee Gastritis Vomiting Heart murmur Bipolar depression Moderate asthma Surgical History (Updated 05/24/25 @ 08:34 by APARNA Macias) H/O eye surgery S/P implantation of urinary electronic stimulator device H/O hernia repair History of esophagogastroduodenoscopy (EGD) History of open reduction and internal fixation (ORIF) procedure History of colonoscopy H/O dilation and curettage Hx laparoscopic cholecystectomy Gastric bypass status for obesity (~1999) Family History Father Hx of type 1 diabetes mellitus Mother Hx of colon cancer, stage IV Social History Household Members: Spouse Housing: House Are you a primary rn critical care to a significant other at home: No Do you presently have visiting nurse or other home services: No Alcohol intake: current Alcohol intake frequency: does not drink Comment: RIGHT KNEE CONTUSION Patient Tobacco Use Status: Former Tobacco user Tobacco use type: Cigarette Years Smoked: quit in 2003, only smoked for a couple years e-Cigarette/Vaping Use: Never Used Second Hand Smoke Exposure: No service: No Current occupational status: employed 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 How often do you have a drink containing alcohol?: Never 3. How often do you have six or more drinks on one occasion?: Never Total Score: 0 Physical exam (Primary Care) Vital Signs: Last Vital Signs Temp 97.9 F 06/22/25 13:03 Pulse 90 06/22/25 13:03 Resp 16 06/22/25 13:03 BP 124/86 06/22/25 13:03 Pulse Ox 96 06/22/25 13:03 Oxygen Delivery Method Room Air 06/22/25 13:03 BMI result Body Mass Index 66.2 Tobacco/Smoking Status: Tobacco use Status Tobacco use date assessed 06/22/25 06/22/25 13:11 Patient Tobacco Use Status Former Tobacco user 06/22/25 13:11 Tobacco use type Cigarette 06/22/25 13:11 e-Cigarette/Vaping Use Never Used 06/22/25 13:11 Coding Level of Care Code Est Pt Level 4 (88228) Complex EM visit Add On G2211 Diagnoses Fatigue R53.83 Nausea R11.0 Class 3 severe obesity with serious comorbidity and body mass index (BMI) of 60.0 to 69.9 in adult, unspecified obesity type E66.01; Z68.44; Z68.44 Body mass index: BMI 60.0-69.9 Obesity classification: adult class 3 (BMI >= 40) Obesity type: unspecified obesity type Serious obesity comorbidity presence: with serious comorbidity Therapeutic drug monitoring Z51.81 Anemia, unspecified type D64.9 Anemia type: unspecified type Chronic pain of both feet M79.671; M79.672; G89.29 Assessment & Plan Assessment & Plan (1) Fatigue: Code(s): R53.83 - Other fatigue Category: Medical (2) Nausea: Code(s): R11.0 - Nausea Category: Medical (3) Obesity: Code(s): E66.9 - Obesity, unspecified Category: Medical Qualifiers: Body mass index: BMI 60.0-69.9 Obesity classification: adult class 3 (BMI >= 40) Obesity type: unspecified obesity type Serious obesity comorbidity presence: with serious comorbidity Qualified Code(s): E66.01 - Morbid (severe) obesity due to excess calories; Z68.44 - Body mass index [BMI] 60.0-69.9, adult; Z68.44 - Body mass index [BMI] 60.0-69.9, adult Plan: due to ongoing GI symptoms cannot try newer weight loss agents (4) Therapeutic drug monitoring: Code(s): Z51.81 - Encounter for therapeutic drug level monitoring Category: Medical Plan: check tox screen (5) Anemia: Code(s): D64.9 - Anemia, unspecified Category: Medical Qualifiers: Anemia type: unspecified type Qualified Code(s): D64.9 - Anemia, unspecified (6) Chronic pain of both feet: Code(s): M79.671 - Pain in right foot; M79.672 - Pain in left foot; G89.29 - Other chronic pain Category: Medical Plan: contract renewed, tox screen obtained, percocet prn for severe pain Plan Our focus is a comprehensive, integrated treatment plan accounting for her diverse needs. Continue and optimize symptom control utilizing clonazepam and Abilify. Support potential endocrine and gastroparesis-related issues through nutritional and hormonal strategies, such as trying Ensure Clear and checking thyroid, A1c, cortisol, and other related labs. MRI is pivotal for addressing her neurological symptoms. Maintain psychiatric management plans alongside ongoing telehealth therapy. Regular review will ensure adaptations needed to her treatment based on response and test results. Orders: Orders Comprehensive Met. Panel Today E66.9 - Obesity, unspecified, R11.0 - Nausea Complete Blood Count Auto Diff Today D64.9 - Anemia, unspecified, E66.9 - Obesity, unspecified, R11.0 - Nausea Vitamin B12 Today E66.9 - Obesity, unspecified, R11.0 - Nausea IRON PROFILE Today E66.9 - Obesity, unspecified, R11.0 - Nausea Cocaine Screen Urine Today Z51.81 - Encounter for therapeutic drug level monitoring Alcohol, Ethyl Urine Screen Today Z51.81 - Encounter for therapeutic drug level monitoring Benzodiazepines Screen Urine Today Z51.81 - Encounter for therapeutic drug level monitoring Amphetamine Screen Urine Today Z51.81 - Encounter for therapeutic drug level monitoring Hemoglobin A1c Today E66.9 - Obesity, unspecified, R11.0 - Nausea TSH reflex Free T4 Today E66.9 - Obesity, unspecified, R11.0 - Nausea Opiate Screen Urine Today Z51.81 - Encounter for therapeutic drug level monitoring Cortisol Random Today R53.83 - Other fatigue
[2025-06-22 13:03] VITALS: BP 124/86; PULSE 90; RESP 16; TEMP 36.6; O2SAT 96; BMI 66.2
--- OUTSIDE RECORDS SUMMARY | 2025-06-22 16:20 | XMS_ITS | Encounter Summary ---
Author Organization [facility] Address [address] [place] [address] Care Team Providers Care Digital Performance Analyst Name Role Phone Caridad Louis MD Primary Care Provider [phone] Encounter Details Date Type Department Care Team (Late st Contact Info) Description 09/03/2024 Mojo Mobility Message [facility] Financial Counseling Department [address] [place] [phone] Mychart, Generic Provider [address] [place], [place] [id number] Financial Assistance Social History Tobacco Use Types [...] on filedocumented in this encounter Care Teams Digital Performance Analyst Relationship Specialty Start Date End Date Caridad Louis MD [address] [place] [address] PCP - General Internal Medicine 05/05/24 documented as of this encounter
--- OUTSIDE RECORDS SUMMARY | 2025-06-22 16:21 | XMS_ITS | Encounter Summary ---
Author Organization [facility] Address [address] [place] [address] Phone Care Team Providers Care Dental Assisting Instructor Name Role Phone Caridad Louis MD Primary Care Provider + Encounter Details Date Type Department Care Team (Late st Contact Info) Description 03/10/2019 Procedure Pass [facility] 4 ENDO DEPT [address] [facility], 4th [place] [address] Social History Tobacco Use Types Packs/Day Years [...] on filedocumented in this encounter Care Teams Dental Assisting Instructor Relationship Specialty Start Date End Date Caridad Louis MD [address] [place] [address] PCP - General Internal Medicine 05/01/18 documented as of this encounter Additional Source Comments The information contained in this document represents components of the legal health record. It is not the complete legal health record.[facility]
--- OUTSIDE RECORDS SUMMARY | 2025-06-22 16:21 | XMS_ITS | Encounter Summary ---
Author Organization [facility] Address [address] [place] [address] [place] [phone] Phone Care Team Providers Care Java Programming Professor Name Role Phone Caridad Louis MD Primary Care Provider + Reason for Referral * Consultation (Elective) - Closed Specialty Diagnoses / Procedures Referred By Megha franco Referred To Contact Neurology Diagnoses Encounter for consultation System, Provider Not In, PhD [address] [address] Phone: tel: Referral ID Status Reason Start Date Expiration Date Visits Re quested Visits Authorized [id number] Closed 10/29/2018 10/29/2019 1 1 Encounter Details Date Type Department Care Team (Late st Contact Info) Description 10/29/2018 Transcribe Orders [facility] [place] [address] [facility]th [address], [address] [place] [address] Caridad Louis MD [address] [place] [address] Encounter for consultation (Primary Dx) Social History [...] Diagnoses Orde r Schedule Ambulatory referral to [facility] [place] Outpatient Referral Routine Encounter for consultation Ordered: 10/29/2018 documented as of this encounter Visit Diagnoses Diagnosis Encounter for consultation- Primary documented in this encounter Care Teams Java Programming Professor Relationship Specialty Start Date End Date Caridad Louis MD [address] [place] [address] PCP - General Internal Medicine 05/01/18 documented as of this encounter Additional Source Comments The information contained in this document represents components of the legal health record. It is not the complete legal health record.[facility]
--- OUTSIDE RECORDS SUMMARY | 2025-06-22 16:21 | XMS_ITS | Clinical Summary ---
Author Organization [facility] Address [address] [place] [address] Care Team Providers Care Attendant Sales Name Role Phone Caridad Louis MD Primary Care Provider [phone] Allergies Active Allergy Reactions Criticality Noted Date [...] age to complete this topic Care Teams Attendant Sales Relationship Specialty Start Date End Date Caridad Louis MD [address] [place] [phone] PCP - General Internal Medicine 12/21/21
--- OUTSIDE RECORDS SUMMARY | 2025-06-22 16:21 | XMS_ITS | Data Portability ---
Author Organization [facility] Conrado Osullivan AONE Crandall Address [address] [place] [address] Assessment Encounter Date Assessment Date Assessment LastModified [...] Appointment scheduled for 3:00 this afternoon at [facility]. Patient is in not in any [...] suspension for injection 2022 023 [email or web address] [id number], [phone] [place], [address], 3 13:18:54 lidocaine (PF) 10 mg/mL (1 %) injection solution 2022 023 [email or web address] [id number], [phone] [place], [address], 3 13:18:54 Patient TargetsNo targets recorded. Patient [...] lateral collateral ligament of right knee joint 9222360649142 9104 Active 2022 EMELINA SANTOS PA-C [address],[place] [facility], [place], [address], [place] [facility] [place], P 3 19:51:21 Pain of right calf 4879070081377 103 Active 2022 EMELINA SANTOS PA-C [address],[place] [facility], [place], [address], [place] [facility] [place], P 3 13:11:32 Problem Notes None recorded. Procedures Surgical History Date Name Laterality Status Provider Name and Address Organization Details Recorded Time 01/02/2023 Knee Joint/Burs a Asp & Inj completed EMELINA SANTOS PA-C [address],[place] [facility], [place], [address], [place] [facility] [place], P 01/02/2023 13:19:35 12/19/2022 Knee Joint/Burs a Asp & Inj completed EMELINA SANTOS PA-C [address], [place], [address], [place] [facility] [place], P 12/19/2022 19:56:53 Imaging Results None recorded. Procedure Notes None recorded. Medical Equipment None Reported. Allergies Allergen ID Allergen Name Allergen Category Reaction Reaction Severity Criticality Documentation Date Start Date Code Code System Note Provider Name and Address Organization Details Recorded Time 558710 nitrofura ntoin medicatio n Not available Not available Not available 05/25/20252018 7454 RxNorm React ion: Anaph ylaxi s, sever ity: Unkno wn;Re actio n: Itchi ng, sever ity: Unkno wn;Re actio n: Other (See Comme nts), sever ity: Unkno wn;Di fficu lty breat noe Not Available [facility] 5 01:32:16 2631 Non-stero idal anti-infl ammatory agent (substanc e) medicatio n Not available Not available Not available 12/19/2022 08961 5008 SNOMED Nancy Anne null, [place] [facility] [place], P 3 14:47:20 2632 Macrobid medicatio n Not available Not available Not available 12/19/2022 01157 1 RxNorm Nancy Anne null, [place] [facility] [place], P 3 14:47:26 Medications Name Sig Start [...] Updated DateTime 12/19/2022 157.48 cm 57.8 kg/m2 145311.[address] [place] [facility] [place], P 12/19/2022 14:48:12 Social History None recorded. Functional Status Question Answer Note LastModified by Organizat ion Details LastModified Time Do you use any illicit or recreational drugs? No Information not available 12/19/2022 Do you or have you ever used any other forms of tobacco or nicotine? No [email or web address] Information not available 12/19/2022 What is your level of alcohol consumption? None Information not available 12/19/2022 Mental Status None recorded. Family History Relationship Description Onset Age of this Age Resolved Age Notes LastModified by Organization Details LastModified Time Mother Family history of malignant neoplasm [email or web address] Not available 2022 14:48:51 Medical History Condition Response Anemia Y Hypertension Y Asthma Y Gynecological HistoryNo gynecological history recorded. Obstetrics History GPAL:G 0 P 0 0 0 0 Past Encounters Encounter ID Performer Location Encounter Start Date Encounter Closed Date Diagnosis/Indication Diagnosis SNOMED-CT Code Diagnosis ICD10 Code Diagnosis IMO Codes Diagnosis Note [id number] [address] [facility] [address] [place] [address] 12/19/2022 14:32:55 12/19/2022 15:14:51 Sprain of lateral collateral ligament of right knee joint 0128548559 8838939 S83.91XA [id number] [facility] [address] [facility] [address] [place] [address] 01/02/2023 12:52:58 01/02/2023 13:20:33 Pain of right calf 3048949512 380723 M79.661 Pain of ri ght knee joint 1139279048 43553 M25.561 Health Concerns Section Related Observation LastModified by Organization Detai ls LastModified Time None Recorded Concern Status LastModified by Organization Details LastModified Time None Recorded Advance Directives Directive None Recorded Payers Insurance Date Sequence Insurance Name Policy Number Policy Canales Covered Member ID Canales Member ID Guarantor Name 01/27/2023 1 ARA (POS) [id number] Digna Foss [id number] Digna Foss Notes Date Note Type [...] pain which prompted her to go to [facility]'s ER. Patient states she was told [...] I personally reviewed these x-rays in the [facility] PACS system and agree with the below noted findings. [facility] [address] [place] [address] Pat ient: DIGNA FOSS/Age/Sex: 1975 - FUnit#: [id number] Location/Status: SPER/PRE ERAccount#: [id number] Mnemonic[facility] CR Knee RT 4 or [...] findings. Moderately severe osteoarthritis, mildlyprogressive since 04/20/2014.Code 76398Kbsopmryt Physician: TAPAN LOVETT MDElectronically Signed by: TAPAN LOVETT [facility] Date/Time: 12/17/22804Sign date/Time: 12/17/22 08 EMELINA SANTOS PA-C [address] [place] [address], [phone], [place] [facility] [place], P 12/19/2022 19:58:33 3 text/html Assessment & [...] family history of DVT. EMELINA SANTOS PA-C [address] [place] [address],[facility] [address], [place], [address], [place] [facility] [place], P 01/02/2023 13:20:34 OBGyn Episode No OBEpisode recorded.
--- OUTSIDE RECORDS SUMMARY | 2025-06-22 16:21 | XMS_ITS | Patient Health Record ---
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) Active confirmed Problem Body mass index 40+ - morbidly obese (200105192) Body mass index [BMI] 50.0-59.9, adult (Z68.43) Active confirmed Plan Of Treatment No Information Insurance Providers Payer Name Payer Address Payer Phone Subscriber Number Group Number Insured Name Patient Relationship to Insured Coverage Start Date Coverage End Date [employer] [address] [address] [place] [address] [id number] Lisa Foss Self - patient is the [...] following gastric bypass COVID vaccinated X 2 (Carrot[employer]mx) and [address] ([employer]) Surgical History Surgery Date(Month/Year) colonoscopy 08/24/2020, 11/27/2016, [...]
--- OUTSIDE RECORDS SUMMARY | 2025-06-22 16:21 | XMS_ITS | Encounter Summary ---
Author Organization [facility] Address [address] [address] Phone Care Team Providers Care Route Inspector Name Role Phone Caridad Louis MD Primary Care Provider + Reason for Referral * Consultation (Within 1 month) - Closed Specialty Diagnoses / Procedures Referred By Megha franco Referred To Contact Gastroenterology Diagnoses Abdominal pain, unspecified abdominal location Persistent vomiting Caridad Louis MD [address] [place] [address] Phone: tel: fax: Soto Noble MD, PhD Phone: tel: fax: [email or web address] Referral ID Status Reason Start Date Expiration Date Visits Re quested Visits Authorized [id number] Closed 12/15/2018 12/16/2019 1 1 Encounter Details Date Type Department Care Team (Latest Contact Info) Description 12/15/2018 Transcribe Orders [facility] [address] [place] [address], [address] [place] [address] Caridad Louis MD [address] [place] [address] Abdominal pain, unspecified abdominal location (Primary Dx); [...] Associated Diagnoses Order Schedule Ambulatory referral to [facility] Gastroenterology (Consult Requests Only) Outpatient Referral Routine Abdominal pain, unspecified abdominal location Persistent vomiting Ordered: 12/15/2018 documented as of this encounter Visit Diagnoses Diagnosis Abdominal pain, unspecified abdominal location- Primary Persistent vomiting documented in this encounter Care Teams Route Inspector Relationship Specialty Start Date End Date Caridad Louis MD [address] [place] [address] PCP - General Internal Medicine 05/01/18 documented as of this encounter Additional Source Comments The information contained in this document represents components of the legal health record. It is not the complete legal health record.[facility]
--- OUTSIDE RECORDS SUMMARY | 2025-06-22 16:21 | XMS_ITS | Data Portability ---
Author Organization [place] [facility] Address [address] [place] [phone] Care Team Providers Care Underwriting Clerk Name Role Phone JOÃO PLUNKETT Primary Care Provider [phone] Assessment Encounter Date Assessment Date Assessment LastModified [...] intermittent nausea. She has gone to the [facility] for IV fluids before. SHe is tolerating [...] ionized calcium, serum or plasma 019 [email or web address] [facility], [address] [place] [address], [phone], 9 14:46:59 Referral None recorded. Procedures None recorded. Surgeries None recorded. Imaging None recorded. Medication Orders None recorded. Patient TargetsNo targets recorded. Patient Instructions Encounter Date Encounter Id Patient Instructions Last Modified By Organization Details Last Modified Time 06/11/2019 [id number] Compufirst came to your home for evaluation of [...] with your PCP. You are seeing the automatic shirring machine operator tomorrow for further evaluation of your blood pressure concerns. We did not give you any prescriptions. Thank you for your visit with [facility] today. We cannot always find the exact cause of your symptoms during your initial visit. Please follow up with your primary care provider or specialist within 24-48 hours to be rechecked or seek medical attention if your symptoms do not go away or get worse. If you develop any new or worsening symptoms and need after hours care, please go to nearest ER and/or call 911. If you have additional concerns or develop a change in your condition between 8am-10pm, please call [facility] at [phone] to help navigate your care. Not available 06/11/2019 14:46:59 Reason for Referral None Reported. Results Created Date Observation Date Name Description Value Unit Range Abnormal Flag Note LastModifiedBy Organization Detail LastModifiedTime 06/11/2006/11/2019 BMP + ioniz ed calci um, serum or plasm a Na 142 mmol/ L 138-14 6 Not Available [facility] - [facility] [address] [place], [address], 06/11/2019 14:41:52 06/11/2006/11/2019 BMP + ioniz ed calci um, serum or plasm a K 3.9 mmol/ L 3.5-4. 9 Not Available [facility] [address] [place], [address], 06/11/2019 14:41:52 06/11/2006/11/2019 BMP + ioniz ed calci um, serum or plasm a cL 108 mmol/ L 98-109 Not Available [facility] - Home [address] [place], [address], 06/11/2019 14:41:52 06/11/2006/11/2019 BMP + ioniz ed calci um, serum or plasm a ica 1.18 mmol/ L 1.12-1 .32 Not Available [facility] - Home [address] [place], [address], 06/11/2019 14:41:52 06/11/2006/11/2019 BMP + ioniz ed calci um, serum or plasm a TCO2 22 mmol/ L 24-29 Not Available [facility] - Home [address] [place], [address], 06/11/2019 14:41:52 06/11/2006/11/2019 BMP + ioniz ed calci um, serum or plasm a glu 160 mg/dL 70-105 Not Available [facility] - Home [address] [place], [address], 06/11/2019 14:41:52 06/11/2006/11/2019 BMP + ioniz ed calci um, serum or plasm a BUN 20 mg/dL 8-26 Not Available [facility] - Home [address] [place], [address], 06/11/2019 14:41:52 06/11/2006/11/2019 BMP + ioniz ed calci um, serum or plasm a crea 0.5 mg/dL .6-1.3 Not Available [facility] - Home [address] [place], [address], 06/11/2019 14:41:52 06/11/2006/11/2019 BMP + ioniz ed calci um, serum or plasm a HCT 37 %_pcv 38-51 Not Available [facility] - Home [address] [place], [address], 06/11/2019 14:41:52 06/11/2006/11/2019 BMP + ioniz ed calci um, serum or plasm a Hb 12.6 g/dL 12-17 Not Available [facility] - Home [address], [place], [address], 06/11/2019 14:41:52 06/11/20 19 06/11/2019 BMP + ioniz ed calci um, serum or plasm a angap 17 mmol/ L 10- Not Available [facility] - Home [address], [place], [address], 06/11/2019 14:41:52 Result Notes None recorded. Procedures Surgical History Date Name Laterality Status Provider Name and Address Organization Details Recorded Time 06/11/20 19 Venipuncture - completed MOISES HINTON NP [address] [place], [address], [place] [facility] 06/11/2019 14:41:40 Imaging Results None recorded. Procedure Notes None recorded. Medical Equipment None Reported. Allergies Allergen ID Allergen Name Allergen Category Reaction Reaction Severity Criticality Documentation Date Start Date Code Code System Note Provider Name and Address Organization Details Recorded Time 47915 Macrobid medicatio n other Not available Not available 06/11/2019 61958 1 RxNorm MOISES HINTON NP [address] [place], [address], [place] [facility] 9 14:28:29 Medications Name Sig Start Date [...] Heart rate Body temperature Respiratory rate Systolic And Diastolic Provider Name and Address Organization Details Last Updated DateTime 9 98 % 98 % 68 /min 97.8 [degF] 16 /min 132/82 mm[Hg] Not Available [facility] 9 14:33:29 Social History Question Answer Notes LastModified by Organizat ion Details LastModified Time Tobacco Smoking Status Never Smoker MOISES HINTON NP [address] [place], [address], [place] [facility] 06/11/2019 14:31:22 What Was [...] ICD10 Code Diagnosis IMO Codes Diagnosis Note [id number] MOISES HINTON NP [facility] [address] [place] [address] 06/11/2019 14:25:37 06/11/2019 18:00:59 Dizziness [id number] Health Concerns Section Related Observation LastModified by Organization Detai ls LastModified Time None Recorded Concern Status LastModified by Organization Details LastModified Time None Recorded Advance Directives Directive None Recorded Payers Insurance Date Sequence Insurance Name Policy Number Policy Canales Covered Member ID Canales Member ID Guarantor Name 06/11/2019 1 [facility] Lisa Dewaynellato [id number] Lisa Dewaynellato 06/11/2019 1 *SELF PAY* Lisa Stellato [id number] Lisa Stellato 06/11/2019 1 [facility] Lisa Stellato [id number] Lisa Stellato Notes Date Note Type Note Provider Name and Address Organization Details Recorded Time 06/11/2019 text/html 43 year-old female with history of obesity, hypotension, asthma, who calls to her home for evaluation of possible low blood pressure. She has been having intermittent dizziness, weakness, fatigue, and not feeling herself. She usually feels like this and has to get IV fluids. She denies any fevers, chills. She has had intermittent nausea. She has gone to the [facility] for IV fluids before. SHe is tolerating PO fluids and food. No shortness of breath, chest pain, palpitations, abdominal pain.She has the merena and has only occasional irregular spotting with it.No real menses for the past 4 years. MOISES HINTON NP [address] [place], [address], [place] [facility] 06/11/2019 16:13:47 OBGyn Episode No OBEpisode recorded.
--- OUTSIDE RECORDS SUMMARY | 2025-06-22 16:22 | XMS_ITS | Clinical Summary ---
Author Organization [facility] Address [address] [place] [address] Care Team Providers Care Child Center Assistant Name Role Phone Caridad Louis MD [...] Vaccine, 23 Valent 07/16/2017 Pneumococcal conjugate PCV20,polysaccharide [id number] conjugate, adjuvant, PF (Prevnar 20) 12/20/2022 Tetanus [...] Completed 3, 07/16/2017 Procedures * Due to [place] state law, this organization might not be sharing negative HIV tests. Procedure Name Priority Date/Time Associated Diagnosis Comments POCT GLUCOSE Routine 10/27/2024 10:01 AM EST from Last 3 Months or Most Recently Relevant to Health Maintenance Results * Due to [place] law, this organization might not be sharing negative HIV tests. * (ABNORMAL) POCT Glucose, interfaced (10/27/2024 10:01 AM EST) [facility] Signature Glucose, POCT 105(H) 70 - 99 mg/dL 10/27/2024 10:02 AM EST [facility], [facility] Comment: The leases and land supervisor has not determined the efficacy of this test in Critically ill patients. [facility] defines Critically ill patients for [...] POCT ORDERABLES - DEVICE Final Result [facility] [address] [place] [address], [place] from Last 3 Months or Most Recently Relevant to Health Maintenance [place] [address] [place] [address] [employer] Advance Directives * Presumed Full Code (Latest Code Status on File) Date Activated Date Inactivated Comments 10/27/2024 10:29 AM 10/27/2024 9:21 PM * Presumed Full Code Date Activated Date Inactivated Comments 08/04/2024 8:56 AM 08/04/2024 3:36 PM Care Teams Child Center Assistant Relationship Specialty Start Date End Date Caridad Louis MD [address] [place] [address] PCP - General Internal Medicine 05/05/24
== END 2025-06-22 14:35 | disposition home or self-care (01) ==
LOC: HO.HMCHD 12:47
PROVIDERS: Visit Provider Internal Medicine
DX: R53.83 Other fatigue (principal); E66.01 Morbid (severe) obesity due to excess calories; Z68.44 Body mass index [BMI] 60.0-69.9, adult; R11.0 Nausea; Z51.81 Encounter for therapeutic drug level monitoring; D64.9 Anemia, unspecified; M79.671 Pain in right foot; M79.672 Pain in left foot; G89.29 Other chronic pain

== ENCOUNTER 2025-06-28 13:54 | Outpatient (AMB) | payer OTHER, SELFPAY ==
--- NOTE | 2025-06-28 14:07 | MHC.OFFVIS ---
Vital Signs 06/28/25 14:24 Height 5 ft 2 in Weight 362 lb BMI 66.2 Intake Visit Reasons: MRI review of right shoulder Intake Note: Lisa is a 49 year old female who presents with complaints of intermittent discomfort along the lateral aspect of her right shoulder. The patient continues with her home stretching program. She has been to formal physical therapy in the past which gave her fairly good relief. She wishes to go back to full unrestricted duty at work. Allergies nitrofurantoin (From MACROBID) Allergy (Unknown, Verified 06/28/25 14:23) respiratory symptoms NSAIDS (Non-Steroidal Anti-Inflamma Adverse Reaction (Mild, Verified 06/28/25 14:23) Stomach issues Adhesive Tape Allergy (Intermediate, Uncoded 06/28/25 14:23) Hives SEASONAL ALLERGIES Allergy (Intermediate, Uncoded 06/28/25 14:23) respiratory symptoms Medication List - Last Reconciled 06/28/25 by Bill Saunders MD albuterol sulfate 90 mcg/actuation inhalation aripiprazole 20 mg PO DAILY clonazepam 1 tab PO BID PRN cyclobenzaprine 1 to 2 orally bedtime PRN; diclofenac sodium 3% 1 appl topical BID diphenoxylate-atropine 2.5-0.025 mg (Lomotil) 1 tab PO BID PRN esomeprazole magnesium 40 mg PO DAILY famotidine 40 mg PO BEDTIME lamotrigine 200 mg PO BID 30 days loperamide 2 mg PO Q6H PRN mirtazapine mg PO ondansetron 8 mg PO Q8H PRN pregabalin 100 mg PO TID 15 days promethazine 50 mg PO BID PRN 2 days scopolamine base 1 patch transdermal Q3D PRN sertraline 50 mg PO DAILY sucralfate (Carafate) 1 g PO QID 30 days PFSH Medical History Chronic pain of both feet Fatigue Therapeutic drug monitoring Diarrhea LUQ pain RUQ pain Anemia Urinary retention Obesity Recurrent UTI DARRIUS (obstructive sleep apnea) Neuropathy Hyperplastic adenomatous polyp of stomach Erosive esophagitis Chronic foot pain Chondromalacia patellae Cervical radiculopathy GERD (gastroesophageal reflux disease) Nausea & vomiting Skin ulcer of abdomen Asthma Encounter for insertion of mirena IUD DARRIUS on CPAP Urinary bladder disorder Hiatal hernia with GERD Rectovaginal fistula Contusion of right knee Gastritis Vomiting Heart murmur Bipolar depression Moderate asthma Surgical History H/O eye surgery S/P implantation of urinary electronic stimulator device H/O hernia repair History of esophagogastroduodenoscopy (EGD) History of open reduction and internal fixation (ORIF) procedure History of colonoscopy H/O dilation and curettage Hx laparoscopic cholecystectomy Gastric bypass status for obesity (~1999) Family History Father Hx of type 1 diabetes mellitus Mother Hx of colon cancer, stage IV Social History Household Members: Spouse Housing: House Are you a primary careers adviser to a significant other at home: No Do you presently have visiting nurse or other home services: No Alcohol intake: current Alcohol intake frequency: does not drink Comment: RIGHT KNEE CONTUSION Patient Tobacco Use Status: Former Tobacco user Tobacco use type: Cigarette Years Smoked: quit in 2003, only smoked for a couple years e-Cigarette/Vaping Use: Never Used Second Hand Smoke Exposure: No service: No Current occupational status: employed 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 [employer] Physical Exam Vital Signs: BMI result Body Mass Index 66.2 Extrem Other: Right shoulder examination shows slightly decreased range of motion when compared to her left shoulder, 5/5 strength with supraspinatus testing, positive impingement signs, no instability Office Procedures AMB Joint Injection/Aspiration Joint Injection/Aspiration Primary Site: right shoulder Prep: site was prepped using aseptic technique Injected: 40 mg of, DepoMedrol, with 4 mL of and 1% plain lidocaine Procedure: The patient tolerated the procedure well Coding 98969 - Large joint Procedure code (CPT) selection complete Results Reviewed Results Reviewed: MRI of the patient's right shoulder shows signal change within the supraspinatus tendon most likely due to rotator cuff tendonitis, no full-thickness tear noted Assessment & Plan Assessment & Plan (1) Impingement syndrome of right shoulder: Code(s): M75.41 - Impingement syndrome of right shoulder Category: Medical Plan Mrs. Foss presents with right shoulder pain due to impingement syndrome and rotator cuff tendinitis. The risks and benefits of a right shoulder cortisone injection were discussed at length with the patient. The patient wished to proceed. She tolerated the injection well. She will continue with her home stretching program. I also referred her to the physical therapy department. The patient does not have any evidence of rotator cuff tearing. She can resume full duty at work when she chooses to do so. She will contact me prior to her follow-up appointment in 3 months should any questions or concerns arise. I spent 21 minutes in reviewing the patient's records and imaging studies, seeing the patient and documenting in the medical record. Orders: Orders AMB Joint Injection/Aspiration Today M75.41 - Impingement syndrome of right shoulder PT Evaluation and Treatment 06/29/25 M75.41 - Impingement syndrome of right shoulder Coding Level of Care Code Est Pt Level 3 (10990) Complex EM visit Add On G2211 Diagnoses Impingement syndrome of right shoulder M75.41 CPT Codes Coding - 15552 Large joint: 69850 - Large joint ([id number])
[2025-06-28 14:24] VITALS: BMI 66.2
--- OUTSIDE RECORDS SUMMARY | 2025-06-28 17:34 | XMS_ITS | Clinical Summary ---
Author Organization [facility] Address [address] [place] [address] Care Team Providers Care Online Services Manager Name Role Phone Caridad Louis MD Primary Care Provider [phone] Allergies Active Allergy Reactions Criticality Noted Date [...] age to complete this topic Care Teams Online Services Manager Relationship Specialty Start Date End Date Caridad Louis MD [address] [place] [phone] PCP - General Internal Medicine 12/21/21
--- OUTSIDE RECORDS SUMMARY | 2025-06-28 17:34 | XMS_ITS | Encounter Summary ---
Author Organization [facility] Address [address] [place] [address] [place] [address] Phone Care Team Providers Care Harm Reduction Worker Name Role Phone Caridad Louis MD Primary Care Provider + Reason for Referral * Consultation (Elective) - Closed Specialty Diagnoses / Procedures Referred By Megha franco Referred To Contact Neurology Diagnoses Encounter for consultation System, Provider Not In, PhD [address] [address] Phone: tel: Referral ID Status Reason Start Date Expiration Date Visits Re quested Visits Authorized [id number] Closed 10/29/2018 10/29/2019 1 1 Encounter Details Date Type Department Care Team (Late st Contact Info) Description 10/29/2018 Transcribe Orders [facility] Department of Neurology [address] [facility], [address]th [address], [address] [place] [address] Caridad Louis MD [address] [place] [address] Encounter for consultation (Primary Dx) Social History [...] Diagnoses Orde r Schedule Ambulatory referral to [facility] Neurology Outpatient Referral Routine Encounter for consultation Ordered: 10/29/2018 documented as of this encounter Visit Diagnoses Diagnosis Encounter for consultation- Primary documented in this encounter Care Teams Harm Reduction Worker Relationship Specialty Start Date End Date Caridad Louis MD [address] [place] [address] PCP - General Internal Medicine 05/01/18 documented as of this encounter Additional Source Comments The information contained in this document represents components of the legal health record. It is not the complete legal health record.[facility]
--- OUTSIDE RECORDS SUMMARY | 2025-06-28 17:34 | XMS_ITS | Data Portability ---
Author Organization [place] [facility] Conrado Osullivan [place] Address [address] [place] [address] Assessment Encounter Date Assessment Date Assessment LastModified [...] Appointment scheduled for 3:00 this afternoon at [facility]. Patient is in not in any acute [...] for injection 2022 023 [email or web address] [id number], [phone] [place], [address], 3 13:18:54 lidocaine (PF) 10 mg/mL (1 %) injection solution 2022 023 [email or web address] [id number], [phone] [place], [address], 3 13:18:54 Patient TargetsNo targets recorded. Patient [...] lateral collateral ligament of right knee joint 9154890942599 9104 Active 2022 EMELINA SANTOS PA-C [address],[place] [facility], [place], [address], [place] [facility] [place], P 3 19:51:21 Pain of right calf 5427966509778 103 Active 2022 EMELINA SANTOS PA-C [address],[place] [facility], [place], [address], [place] [facility] [place], P 3 13:11:32 Problem Notes None recorded. Procedures Surgical History Date Name Laterality Status Provider Name and Address Organization Details Recorded Time 01/02/2023 Knee Joint/Burs a Asp & Inj completed EMELINA SANTOS PA-C [address],[place] [facility], [place], [address], [place] [facility] [place], P 01/02/2023 13:19:35 12/19/2022 Knee Joint/Burs a Asp & Inj completed EMELINA SANTOS PA-C [address],[place] [address], [place], [address], [place] [facility] [place], P 12/19/2022 19:56:53 Imaging Results None recorded. Procedure Notes None recorded. Medical Equipment None Reported. Allergies Allergen ID Allergen Name Allergen Category Reaction Reaction Severity Criticality Documentation Date Start Date Code Code System Note Provider Name and Address Organization Details Recorded Time 777530 nitrofura ntoin medicatio n Not available Not available Not available 05/25/20252018 7454 RxNorm React ion: Anaph ylaxi s, sever ity: Unkno wn;Re actio n: Itchi ng, sever ity: Unkno wn;Re actio n: Other (See Comme nts), sever ity: Unkno wn;Di fficu lty breat noe Not Available [facility] 5 01:32:16 2631 Non-stero idal anti-infl ammatory agent (substanc e) medicatio n Not available Not available Not available 12/19/2022 32563 5008 SNOMED Nancy Anne null, [place] [facility] [place], P 3 14:47:20 2632 Macrobid medicatio n Not available Not available Not available 12/19/2022 84311 1 RxNorm Nancy Anne null, [place] [facility] [place], P 3 14:47:26 Medications Name Sig Start [...] Updated DateTime 12/19/2022 157.48 cm 57.8 kg/m2 740600.[address] [place] [facility] [place], P 12/19/2022 14:48:12 Social History None recorded. Functional Status Question Answer Note LastModified by Organizat ion Details LastModified Time Do you use any illicit or recreational drugs? No [email or web address] Information not available 12/19/2022 Do you or have you ever used any other forms of tobacco or nicotine? No [email or web address] Information not available 12/19/2022 What is your level of alcohol consumption? None [email or web address] Information not available 12/19/2022 Mental Status None recorded. Family History Relationship Description Onset Age of this Age Resolved Age Notes LastModified by Organization Details LastModified Time Mother Family history of malignant neoplasm [email or web address] Not available 2022 14:48:51 Medical History Condition Response Anemia Y Asthma Y Hypertension Y Gynecological HistoryNo gynecological history recorded. Obstetrics History GPAL:G 0 P 0 0 0 0 Past Encounters Encounter ID Performer Location Encounter Start Date Encounter Closed Date Diagnosis/Indication Diagnosis SNOMED-CT Code Diagnosis ICD10 Code Diagnosis IMO Codes Diagnosis Note [id number] SHANNAN SANDHU [facility] [address] [facility] [address] [place] [address] 12/19/2022 14:32:55 12/19/2022 15:14:51 Sprain of lateral collateral ligament of right knee joint 8910747126 3815218 S83.91XA [id number] SHANNAN SANDHU [facility] [address] [facility] [address] [place] [address] 01/02/2023 12:52:58 01/02/2023 13:20:33 Pain of right calf 2187366352 714847 M79.661 Pain of ri ght knee joint 5131095697 34191 M25.561 Health Concerns Section Related Observation LastModified by Organization Detai ls LastModified Time None Recorded Concern Status LastModified by Organization Details LastModified Time None Recorded Advance Directives Directive None Recorded Payers Insurance Date Sequence Insurance Name Policy Number Policy Canales Covered Member ID Canales Member ID Guarantor Name 01/27/2023 1 ARA (POS) [id number] Digna Foss [id number] Digna Foss Notes Date Note Type [...] pain which prompted her to go to [facility]'s ER. Patient states she was told that [...] and agree with the below noted findings. [facility] [address] [place] [address] Pat ient: DIGNA FOSS/Age/Sex: 1975 - FUnit#: [id number] Location/Status: SPER/PRE ERAccount#: [id number] Mnemonic/[facility]DOC CR Knee RT 4 or [...] findings. Moderately severe osteoarthritis, mildlyprogressive since 04/20/2014.Code 02844Szuwqguea Physician: TAPAN LOVETT MDElectronically Signed by: TAPAN LOVETT [facility] Date/Time: 12/17/22804Sign date/Time: 12/17/22 08 EMELINA SANTOS PA-C [address] [place] [address], [address], [place] [facility] [place], P 12/19/2022 19:58:33 3 text/html Assessment & [...] family history of DVT. EMELINA SANTOS PA-C [address] [place] [address],[facility] [address], [place], [address], [place] [facility] [place], P 01/02/2023 13:20:34 OBGyn Episode No OBEpisode recorded.
--- OUTSIDE RECORDS SUMMARY | 2025-06-28 17:34 | XMS_ITS | Data Portability ---
Author Organization [place] [facility] Address [address] [place] [address] Care Team Providers Care Rocket Motor Tester Name Role Phone JOÃO PLUNKETT Primary Care [...] ionized calcium, serum or plasma 019 [email or web address] [facility], [address] [place] [address], [address], 9 14:46:59 Referral None recorded. Procedures None recorded. Surgeries None recorded. Imaging None recorded. Medication Orders None recorded. Patient TargetsNo targets recorded. Patient Instructions Encounter Date Encounter Id Patient Instructions Last Modified By Organization Details Last Modified Time 06/11/2019 [id number] [employer] came to your home for evaluation of [...] with your PCP. You are seeing the tower loader operator tomorrow for further evaluation of your blood pressure concerns. We did not give you any prescriptions. Thank you for your visit with [facility] today. We cannot always find the exact [...] in your condition between 8am-10pm, please call [facility] at [phone] to help navigate your care. Not available 06/11/2019 14:46:59 Reason for Referral None Reported. Results Created Date Observation Date Name Description Value Unit Range Abnormal Flag Note LastModifiedBy Organization Detail LastModifiedTime 06/11/2006/11/2019 BMP + ioniz ed calci um, serum or plasm a Na 142 mmol/ L 138-14 6 Not Available [facility] - [address] [place], [address], 06/11/2019 14:41:52 06/11/2006/11/2019 BMP + ioniz ed calci um, serum or plasm a K 3.9 mmol/ L 3.5-4. 9 Not Available [facility] - [facility] [address] [place], [address], 06/11/2019 14:41:52 06/11/2006/11/2019 BMP + ioniz ed calci um, serum or plasm a cL 108 mmol/ L 98-109 Not Available [facility] - Home [address] [place], [address], 06/11/2019 14:41:52 06/11/2006/11/2019 BMP + ioniz ed calci um, serum or plasm a ica 1.18 mmol/ L 1.12-1 .32 Not Available [facility] - Home [address] [place], [address], 06/11/2019 14:41:52 06/11/2006/11/2019 BMP + ioniz ed calci um, serum or plasm a TCO2 22 mmol/ L 24-29 Not Available [facility] - Home [address] [place], [address], 06/11/2019 14:41:52 06/11/2006/11/2019 BMP + ioniz ed calci um, serum or plasm a glu 160 mg/dL 70-105 Not Available [facility] - Home [address] [place], [address], 06/11/2019 14:41:52 06/11/2006/11/2019 BMP + ioniz ed calci um, serum or plasm a BUN 20 mg/dL 8-26 Not Available [facility] - Home [address] [place], [address], 06/11/2019 14:41:52 06/11/2006/11/2019 BMP + ioniz ed calci um, serum or plasm a crea 0.5 mg/dL .6-1.3 Not Available [facility] - Home [address] [place], [address], 06/11/2019 14:41:52 06/11/2006/11/2019 BMP + ioniz ed calci um, serum or plasm a HCT 37 %_pcv 38-51 Not Available [facility] - Home [address] [place], [address], 06/11/2019 14:41:52 06/11/2006/11/2019 BMP + ioniz ed calci um, serum or plasm a Hb 12.6 g/dL 12-17 Not Available [facility] - Home [address], [place], [address], 06/11/2019 14:41:52 06/11/20 19 06/11/2019 BMP + ioniz ed calci um, serum or plasm a angap 17 mmol/ L 10- Not Available [facility] - Home [address], [place], [address], 06/11/2019 14:41:52 Result Notes None recorded. Procedures Surgical History Date Name Laterality Status Provider Name and Address Organization Details Recorded Time 06/11/20 19 Venipuncture - completed MOISES HINTON NP [address] [place], [address], [place] [facility] 06/11/2019 14:41:40 Imaging Results None recorded. Procedure Notes None recorded. Medical Equipment None Reported. Allergies Allergen ID Allergen Name Allergen Category Reaction Reaction Severity Criticality Documentation Date Start Date Code Code System Note Provider Name and Address Organization Details Recorded Time 97192 Macrobid medicatio n other Not available Not available 06/11/2019 61263 1 RxNorm MOISES HINTON NP [address] [place], [address], [place] [facility] 9 14:28:29 Medications Name Sig Start Date [...] Status Never Smoker MOISES HINTON NP [address] [place], [address], [place] [facility] 06/11/2019 14:31:22 What Was The Date Of Your Most Recent Tobacco Screening? 06/11/2019 Information not available 06/12/2019 Sex: Unknown Functional Status None recorded. Mental Status None recorded. Family History Nothing Reported. Medical History Condition Response Asthma Y High Cholesterol N Hypertension N Gynecological HistoryNo gynecological history recorded. Obstetrics History GPAL:G 0 P 0 0 0 0 Past Encounters Encounter ID Performer Location Encounter Start Date Encounter Closed Date Diagnosis/Indication Diagnosis SNOMED-CT Code Diagnosis ICD10 Code Diagnosis IMO Codes Diagnosis Note [id number] MOISES HINTON NP [facility] [address] [place] [address] 06/11/2019 14:25:37 06/11/2019 18:00:59 Dizziness 127065316 R42 Health Concerns Section Related Observation LastModified by Organization Detai ls LastModified Time None Recorded Concern Status LastModified by Organization Details LastModified Time None Recorded Advance Directives Directive None Recorded Payers Insurance Date Sequence Insurance Name Policy Number Policy Canales Covered Member ID Canales Member ID Guarantor Name 06/11/2019 1 [facility] Lisa Dewaynellato [id number] Lisa Dewaynellato 06/11/2019 1 *SELF PAY* Lisa Stellato [id number] Lisa Stellato 06/11/2019 1 [facility] Lisa Stellato [id number] Lisa Stellato Notes Date Note Type [...] intermittent nausea. She has gone to the [facility] for IV fluids before. SHe is tolerating PO fluids and food. No shortness of breath, chest pain, palpitations, abdominal pain.She has the merena and has only occasional irregular spotting with it.No real menses for the past 4 years. MOISES HINTON NP [address] [place], [address], [place] [facility] 06/11/2019 16:13:47 OBGyn Episode No OBEpisode recorded.
--- OUTSIDE RECORDS SUMMARY | 2025-06-28 17:34 | XMS_ITS | Encounter Summary ---
Author Organization [facility] Address [address] [place] [address] Care Team Providers Care Patient Insurance Clerk Name Role Phone Caridad Louis MD Primary Care Provider [phone] Encounter Details Date Type Department Care Team (Late st Contact Info) Description 09/03/2024 Finjan Message [facility] Financial Counseling Department [address] [place] [id number] Mychart, Generic Provider [address] [place], [place] [id number] Financial Assistance Social History Tobacco Use Types [...] on filedocumented in this encounter Care Teams Patient Insurance Clerk Relationship Specialty Start Date End Date Caridad Louis MD [address] [place] [address] PCP - General Internal Medicine 05/05/24 documented as of this encounter
--- OUTSIDE RECORDS SUMMARY | 2025-06-28 17:34 | XMS_ITS | Encounter Summary ---
Author Organization [facility] Address [address] [address] Phone Care Team Providers Care Information Technology Architect Name Role Phone Caridad Louis MD Primary Care Provider + Reason for Referral * Consultation (Within 1 month) - Closed Specialty Diagnoses / Procedures Referred By Megha franco Referred To Contact Gastroenterology Diagnoses Abdominal pain, unspecified abdominal location Persistent vomiting Caridad Louis MD [address] [place] [address] Phone: tel: fax: Soto Noble MD, PhD Phone: tel: fax: mailto:[email or web address] Referral ID Status Reason Start Date Expiration Date Visits Re quested Visits Authorized [id number] Closed 12/15/2018 12/16/2019 1 1 Encounter Details Date Type Department Care Team (Latest Contact Info) Description 12/15/2018 Transcribe Orders [facility] [address] [place] [address], [address] [place] [address] Caridad Louis MD [address] [place] [address] Abdominal pain, unspecified abdominal location (Primary Dx); [...] Associated Diagnoses Order Schedule Ambulatory referral to [facility] G[facility]ology (Consult Requests Only) Outpatient Referral Routine Abdominal pain, unspecified abdominal location Persistent vomiting Ordered: 12/15/2018 documented as of this encounter Visit Diagnoses Diagnosis Abdominal pain, unspecified abdominal location- Primary Persistent vomiting documented in this encounter Care Teams Information Technology Architect Relationship Specialty Start Date End Date Caridad Louis MD [address] [place] [address] PCP - General Internal Medicine 05/01/18 documented as of this encounter Additional Source Comments The information contained in this document represents components of the legal health record. It is not the complete legal health record.[facility]
--- OUTSIDE RECORDS SUMMARY | 2025-06-28 17:34 | XMS_ITS | Clinical Summary ---
Author Organization [facility] Address [address] [facility] [address] [place] [address] Phone Care Team Providers Care Assignment Editor Name Role Phone Caridad Louis MD Primary [...] VACCINE (#1) 2025 0, 06/05/2016 COVID-19 VACCINE (3 - 2024-2 6 season) 2025 09/20/2020, 08/30/2020 RSV VACCINE (1 - 1-dose 75+ series) 2049 SMOKING STATUS SCREENING (On ce After 26 [...] Devices Not on file Insurance GENERIC COMMERCIAL Member Subscriber Plan / Payer ( fective 2018-Present) Name:Lisa Foss Relation to Subscriber:Self Name:DewayneLisa huff Payer ID:Not on file Type:PPO Address: [place] [id number] GENERIC COMMERCIAL GENERIC COMMERCIAL GENERIC COMMERCIAL GENERIC COMMERCIAL GENERIC COMMERCIAL GENERIC COMMERCIAL GENERIC COMMERCIAL GENERIC COMMERCIAL Care Teams Assignment Editor Relationship Specialty Start Date End Date Caridad Louis MD [address] [place] [address] PCP - General Internal Medicine 05/01/18 Additional Source Comments The information contained in this document represents components of the legal health record. It is not the complete legal health record.[facility]
--- OUTSIDE RECORDS SUMMARY | 2025-06-28 17:34 | XMS_ITS | Patient Health Record ---
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) Active confirmed Problem Body mass index 40+ - morbidly obese (162039709) Body mass index [BMI] 50.0-59.9, adult (Z68.43) Active confirmed Plan Of Treatment No Information Insurance Providers Payer Name Payer Address Payer Phone Subscriber Number Group Number Insured Name Patient Relationship to Insured Coverage Start Date Coverage End Date [employer] [address] [address] [place] [address] [id number] Lisa Foss Self - patient is the [...] following gastric bypass COVID vaccinated X 2 ([employer]) and [address] ([employer]) Surgical History Surgery Date(Month/Year) colonoscopy 08/24/2020, 11/27/2016, [...]
--- OUTSIDE RECORDS SUMMARY | 2025-06-28 17:34 | XMS_ITS | Clinical Summary ---
Author Organization [facility] Address [address] [place] [address] Care Team Providers Care Zipper Trimmer Hand Name Role Phone Caridad Louis MD Primary Care Provider [phone] Allergies Active Allergy Reactions Criticality Noted Date [...] Vaccine, 23 Valent 07/16/2017 Pneumococcal conjugate PCV20,polysaccharide GLW181 conjugate, adjuvant, PF (Prevnar 20) 12/20/2022 Tetanus [...] Completed 3, 07/16/2017 Procedures * Due to [place] state law, this organization might not be sharing negative HIV tests. Procedure Name Priority Date/Time Associated Diagnosis Comments POCT GLUCOSE Routine 10/27/2024 10:01 AM EST from Last 3 Months or Most Recently Relevant to Health Maintenance Results * Due to [place] Remember The Member law, this organization might not be sharing negative HIV tests. * (ABNORMAL) POCT Glucose, interfaced (10/27/2024 10:01 AM EST) [facility] Signature Glucose, POCT 105(H) 70 - 99 mg/dL 10/27/2024 10:02 AM EST [facility], POC Comment: The credentialing assistant has not determined the efficacy of this test in Critically ill patients. [facility] defines Critically ill patients for [...] POCT ORDERABLES - DEVICE Final Result [facility], [facility]OC [address] [place] [address], [place] from Last 3 Months or Most Recently Relevant to Health Maintenance [place] [address] [place] [address] B[employer]EFIT ADMINISTRATORS Advance Directives * Presumed Full Code (Latest Code Status on File) Date Activated Date Inactivated Comments 10/27/2024 10:29 AM 10/27/2024 9:21 PM * Presumed Full Code Date Activated Date Inactivated Comments 08/04/2024 8:56 AM 08/04/2024 3:36 PM Care Teams Zipper Trimmer Hand Relationship Specialty Start Date End Date Caridad Louis MD [address] [place] [address] PCP - General Internal Medicine 05/05/24
--- OUTSIDE RECORDS SUMMARY | 2025-06-28 17:34 | XMS_ITS | Encounter Summary ---
Author Organization [facility] Address [address] [place] [address] Phone Care Team Providers Care Edi Programmer Analyst Name Role Phone Caridad Louis MD Primary Care Provider + Encounter Details Date Type Department Care Team (Late st Contact Info) Description 03/10/2019 Procedure Pass [facility] LALY 4 ENDO DEPT [address] [facility], 4th [place] [address] Social History Tobacco Use Types Packs/Day Years [...] on filedocumented in this encounter Care Teams Edi Programmer Analyst Relationship Specialty Start Date End Date Caridad Louis MD [address] [place] [address] PCP - General Internal Medicine 05/01/18 documented as of this encounter Additional Source Comments The information contained in this document represents components of the legal health record. It is not the complete legal health record.[facility]
--- OUTSIDE RECORDS SUMMARY | 2025-06-28 17:34 | XMS_ITS | Clinical Summary ---
Author Organization [facility] Address [address] [place] [address] Care Team Providers Care School Traffic Guard Name Role Phone Caridad Louis MD Primary Care Provider [phone] Surgical History Surgery Date Site/Laterality Comments COLONOSCOPY PROCEDURE: HISTORICAL COLONOSCOPY; COMMENT: 08/24/20, 11/27/16, 04/2013, 2007 ESOPHAGOGASTRODUODENOSCOPY 10/24/2018 PROCEDURE: [place] ESOPHAGOGASTRODUODENOSCOPY TRANSORAL DIAGNOSTIC OTHER SURGICAL HISTORY 03/10/2018 PROCEDURE: [place] RPR PARAESOPH HIATAL HERNIA W/LAPT W/O MESH OTHER SURGICAL HISTORY 05/23/2017 PROCEDURE: [place] ENDOSCOPY UPPER SMALL INTESTINE BLADDER SURGERY 2016 PROCEDURE: HISTORICAL BLADDER SURGERY; COMMENT: Implantation of electronic stimulator ESOPHAGOGASTRODUODENOSCOPY 02/20/2016 PROCEDURE: [place] ESOPHAGOGASTRODUODENOSCOPY TRANSORAL DIAGNOSTIC OTHER SURGICAL HISTORY 11/27/2016 PROCEDURE: [place] ENDOSCOPY UPPER SMALL INTESTINE OTHER SURGICAL HISTORY 05/01/2012 PROCEDURE: [place] EGD FLEXIBLE TRANSNASAL W/BIOPSY SINGLE/MULTIPLE CHOLECYSTECTOMY 06/02/2010 PROCEDURE: [place] LAPAROSCOPY SURG CHOLECYSTECTOMY OTHER SURGICAL HISTORY 2000 PROCEDURE: [place] LAPS GSTR RSTCV PX W/BYP ANDREW-EN-Y LIMB <150 CM EYE SURGERY 1979 Right PROCEDURE: HISTORICAL EYE SURGERY; COMMENT: Right eye strabismus surgery for amblyopia GASTRIC BYPASS PROCEDURE: [place] GASTRIC RSTCV W/BYP W/SM INT RCNSTJ LIMIT [...] swelling LUQ pain DX:LUQ pain Mood disorder ([facility] V24) DX:M ood disorder ([facility]) Nausea DX:Nausea Neuropathy DX:Neuropathy Obstructive sleep apnea DX:Obstr uctive sleep apnea Otitis media of left ear DX:Otit is media of left ear Pneumonia DX:Pneumonia Recurrent UTI DX:Recurrent UTI Seasonal allergic rhinitis DX:Se asonal allergic rhinitis Severe obesity ([facility] V24, [facility] V28) DX:Severe obesity ([facility]) Thrombocytopenia ([facility] V24) D X:Thrombocytopenia ([facility]) Vaginal discharge DX:Vaginal dis charge Weight gain following gastri c bypass surgery DX:Weight gain following gas tric bypass surgery Chest pain DX:Chest pain Non-cardiac chest pain DX:Non-ca rdiac chest pain Rectovaginal fistula DX:Rectovag inal fistula Low back pain DX:Low back pain Morbid obesity with BMI of 5 0.0-59.9, adult ([facility] V24, [facility] V28) DX:Morbid obesity wit h BMI of 50.0-59.9, adult ([facility]) Family History Medical History Relation Name [...] of Health Screening 10/02/2019 Depression Screening 09/02/2024 RSV Immunization Adult Patients (1 - Risk 50-74 years 1-dose series) 2024 Zoster Vaccines (1 of 2) 2024 COVID-19 Vaccine (4 - 2024- season) 2025 06/24/2021, 09/20/2020, 08/30/2020 Influenza Vaccine (#1) 2025 , 06/12/2021, 06/04/2020, Additional history exists DTaP,Tdap,and Td [...] age to complete this topic Care Teams School Traffic Guard Relationship Specialty Start Date End Date Caridad Louis MD [address] [place] [address] PCP - General Internal Medicine 08/28/21
== END 2025-06-28 14:47 | disposition home or self-care (01) ==
LOC: HO.HOS 13:54
PROVIDERS: PCP Internal Medicine; Visit Provider Orthopaedic Surgery
DX: M75.41 Impingement syndrome of right shoulder (principal)
CPT/HCPCS: 20610; 99213

== ENCOUNTER → 2025-06-28 13:54 | Outpatient (BNVA) | payer OTHER, SELFPAY | PROVIDERS: PCP Internal Medicine; Visit Provider Orthopaedic Surgery | DX: M25.511 Pain in right shoulder (principal); M75.41 Impingement syndrome of right shoulder | CPT/HCPCS: 20610; 99212; J1010; J2003 ==

== ENCOUNTER → 2025-07-01 07:45 | Outpatient (REF) | payer OTHER, SELFPAY ==
--- NOTE | ~2025-07-01 | NM_ITS ---
EXAMINATION: MN RADIONUCLIDE SOLID FOOD GASTRIC EMPTYING 4-HOUR STUDY CLINICAL INFORMATION: R68.81 - Early satiety. Status post gastric bypass procedure. COMPARISON: There are no prior studies available for comparison. TECHNIQUE: A meal consisting of 8 oz of Ensure tagged with 1.0 mCi Tc-99m Sulfur Colloid was administered orally to the patient. Images were obtained using a dual head gamma camera in the anterior and posterior projections over of the stomach immediately post ingestion and at hourly intervals up to 4 hours post ingestion. The anterior and posterior counts at each time interval were averaged using the geometric mean and expressed as percentage of the immediate post ingestion counts. FINDINGS: There is visualization of activity in the stomach immediately post ingestion. As the study progresses, there is clearance of activity from the stomach and visualization of progressively increasing small bowel activity. Retention in the stomach at each time interval was: 1 hour 51% (normal 37%-90%) 2 hours 25% (normal 30%-60%) 3 hours 20% 4 hours 15% (normal 0%-10%) MN/MN gastric emptying study IMPRESSION: Rapid emptying from the stomach consistent with a history of prior gastric bypass. No definite evidence of delayed gastric emptying. For solid meal, rapid gastric emptying is less than 30% at 60 minutes. Delayed gastric emptying criteria is more than 60% remaining at 120 minutes or more than 10% at 240 minutes. The 4-hour value is the best discriminator of a normal or abnormal result). Gastric emptying study grading per JNMT Consensus Recommendations in 2008 (https://tech.snmjournals.org/content/36/44) Grade 1 (mild retention): 11-20% at 4h Grade 2 (moderate retention): 21-35% at 4h Grade 3 (severe retention): 36-50% at 4h Grade 4 (very severe retention): >50% retention at 4h Electronically signed by: Graham Welsh MD 07/01/2025 03:24 PM EDT
--- OUTSIDE RECORDS SUMMARY | 2025-07-01 07:49 | XMS_ITS | Clinical Summary ---
Author Organization [facility] ity Address [address] [place] [address] Care Team Providers Care Resume Specialist Name Role Phone Caridad Louis MD Primary Care Provider +1- [phone] Surgical History Surgery Date Site/Laterality Comments COLONOSCOPY PROCEDURE: HISTORICAL COLONOSCOPY; COMMENT: 08/24/20, 11/27/16, 04/2013, 2007 ESOPHAGOGASTRODUODENOSCOPY 10/24/2018 PROCEDURE: LA ESOPHAGOGASTRODUODENOSCOPY TRANSORAL DIAGNOSTIC OTHER SURGICAL HISTORY 03/10/2018 PROCEDURE: LA RPR PARAESOPH HIATAL HERNIA W/LAPT W/O MESH OTHER SURGICAL HISTORY 05/23/2017 PROCEDURE: LA ENDOSCOPY UPPER SMALL INTESTINE BLADDER SURGERY 2016 PROCEDURE: HISTORICAL BLADDER SURGERY; COMMENT: Implantation of electronic stimulator ESOPHAGOGASTRODUODENOSCOPY 02/20/2016 PROCEDURE: LA ESOPHAGOGASTRODUODENOSCOPY TRANSORAL DIAGNOSTIC OTHER SURGICAL HISTORY 11/27/2016 PROCEDURE: LA ENDOSCOPY UPPER SMALL INTESTINE OTHER SURGICAL HISTORY 05/01/2012 PROCEDURE: LA EGD FLEXIBLE TRANSNASAL W/BIOPSY SINGLE/MULTIPLE CHOLECYSTECTOMY 06/02/2010 PROCEDURE: LA LAPAROSCOPY SURG CHOLECYSTECTOMY OTHER SURGICAL HISTORY 2000 PROCEDURE: LA LAPS GSTR RSTCV PX W/BYP ANDREW-EN-Y LIMB <150 CM EYE SURGERY 1979 Right PROCEDURE: HISTORICAL EYE SURGERY; COMMENT: Right eye strabismus surgery for amblyopia GASTRIC BYPASS PROCEDURE: LA GASTRIC RSTCV W/BYP W/SM INT RCNSTJ LIMIT [...] swelling LUQ pain DX:LUQ pain Mood disorder ([facility] V24) DX:M ood disorder ([facility]) Nausea DX:Nausea Neuropathy DX:Neuropathy Obstructive sleep apnea DX:Obstr uctive sleep apnea Otitis media of left ear DX:Otit is media of left ear Pneumonia DX:Pneumonia Recurrent UTI DX:Recurrent UTI Seasonal allergic rhinitis DX:Se asonal allergic rhinitis Severe obesity ([facility] V24, [facility] V28) DX:Severe obesity ([facility]) Thrombocytopenia ([facility] V24) D X:Thrombocytopenia ([facility]) Vaginal discharge DX:Vaginal dis charge Weight gain following gastri c bypass surgery DX:Weight gain following gas tric bypass surgery Chest pain DX:Chest pain Non-cardiac chest pain DX:Non-ca rdiac chest pain Rectovaginal fistula DX:Rectovag inal fistula Low back pain DX:Low back pain Morbid obesity with BMI of 5 0.0-59.9, adult ([facility]/HCC V24, [facility]/HCC V28) DX:Morbid obesity wit h BMI of 50.0-59.9, adult ([facility]) Family History Medical History Relation Name Comments [...] age to complete this topic Care Teams Resume Specialist Relationship Specialty Start Date End Date Caridad Louis MD [address] [place] [address] PCP - General Internal Medicine 08/28/21
--- OUTSIDE RECORDS SUMMARY | 2025-07-01 07:49 | XMS_ITS | Clinical Summary ---
Author Organization [facility] Address [address] [place] [address] Care Team Providers Care Barrel Loader Name Role Phone Caridad Louis MD [...] Vaccine, 23 Valent 07/16/2017 Pneumococcal conjugate PCV20,polysaccharide [id number] conjugate, adjuvant, PF (Prevnar 20) 12/20/2022 Tetanus [...] Completed 3, 07/16/2017 Procedures * Due to [place] state law, this organization might not be sharing negative HIV tests. Procedure Name Priority Date/Time Associated Diagnosis Comments POCT GLUCOSE Routine 10/27/2024 10:01 AM EST from Last 3 Months or Most Recently Relevant to Health Maintenance Results * Due to [place] [employer] law, this organization might not be sharing negative HIV tests. * (ABNORMAL) POCT Glucose, interfaced (10/27/2024 10:01 AM EST) [facility] Signature Glucose, POCT 105(H) 70 - 99 mg/dL 10/27/2024 10:02 AM EST [facility], POC Comment: The lead handler has not determined the efficacy of this test in Critically ill patients. [facility] defines Critically ill patients for [...] POCT ORDERABLES - DEVICE Final Result [facility], POC [address] [place] [address], [place] from Last 3 Months or Most Recently Relevant to Health Maintenance Insurance [place] [address] [employer] Advance Directives * Presumed Full Code (Latest Code Status on File) Date Activated Date Inactivated Comments 10/27/2024 10:29 AM 10/27/2024 9:21 PM * Presumed Full Code Date Activated Date Inactivated Comments 08/04/2024 8:56 AM 08/04/2024 3:36 PM Care Teams Barrel Loader Relationship Specialty Start Date End Date Caridad Louis MD [address] [place] [address] PCP - General Internal Medicine 05/05/24
--- OUTSIDE RECORDS SUMMARY | 2025-07-01 07:49 | XMS_ITS | Encounter Summary ---
Author Organization [facility] Address [address] [place] [address] [place] [address] Phone Care Team Providers Care School Psychology Professor Name Role Phone Caridad Louis MD Primary Care Provider + Reason for Referral * Consultation (Elective) - Closed Specialty Diagnoses / Procedures Referred By Megha franco Referred To Contact Neurology Diagnoses Encounter for consultation System, Provider Not In, PhD [address] [address] Phone: tel: Referral ID Status Reason Start Date Expiration Date Visits Re quested Visits Authorized [id number] Closed 10/29/2018 10/29/2019 1 1 Encounter Details Date Type Department Care Team (Late st Contact Info) Description 10/29/2018 Transcribe Orders [facility] Department of Neurology [address] [facility], 8th [address], [address] [place] [address] Caridad Louis MD [address] [place] [address] Encounter for consultation (Primary Dx) Social History [...] Diagnoses Orde r Schedule Ambulatory referral to [facility] Neurology Outpatient Referral Routine Encounter for consultation Ordered: 10/29/2018 documented as of this encounter Visit Diagnoses Diagnosis Encounter for consultation- Primary documented in this encounter Care Teams School Psychology Professor Relationship Specialty Start Date End Date Caridad Louis MD [address] [place] [address] PCP - General Internal Medicine 05/01/18 documented as of this encounter Additional Source Comments The information contained in this document represents components of the legal health record. It is not the complete legal health record.[facility]
--- OUTSIDE RECORDS SUMMARY | 2025-07-01 07:49 | XMS_ITS | Data Portability ---
Author Organization [place] [facility] Address [address] [place] [address] Care Team Providers Care Handle Sewer Name Role Phone JOÃO PULNKETT Primary Care Provider Assessment Encounter Date Assessment [...] ionized calcium, serum or plasma 019 [email or web address] [facility], [address] [place] [address], [address], 9 14:46:59 Referral None recorded. Procedures None recorded. Surgeries None recorded. Imaging None recorded. Medication Orders None recorded. Patient TargetsNo targets recorded. Patient Instructions Encounter Date Encounter Id Patient Instructions Last Modified By Organization Details Last Modified Time 06/11/2019 [id number] [facility] came to your home for evaluation of [...] with your PCP. You are seeing the dental ceramist helper tomorrow for further evaluation of your blood pressure concerns. We did not give you any prescriptions. Thank you for your visit with [facility] today. We cannot always find the exact [...] in your condition between 8am-10pm, please call [facility] at [phone] to help navigate your care. Not available 06/11/2019 14:46:59 Reason for Referral None Reported. Results Created Date Observation Date Name Description Value Unit Range Abnormal Flag Note LastModifiedBy Organization Detail LastModifiedTime 06/11/2006/11/2019 BMP + ioniz ed calci um, serum or plasm a Na 142 mmol/ L 138-14 6 Not Available [facility] - [address] [place], [address], 06/11/2019 14:41:52 06/11/2006/11/2019 BMP + ioniz ed calci um, serum or plasm a K 3.9 mmol/ L 3.5-4. 9 Not Available [facility] - [facility] [address] [place], [address], 06/11/2019 14:41:52 06/11/2006/11/2019 BMP + ioniz ed calci um, serum or plasm a cL 108 mmol/ L 98-109 Not Available [facility] - Home [address] [place], [address], 06/11/2019 14:41:52 06/11/2006/11/2019 BMP + ioniz ed calci um, serum or plasm a ica 1.18 mmol/ L 1.12-1 .32 Not Available [facility] - Home [address] [place], [address], 06/11/2019 14:41:52 06/11/2006/11/2019 BMP + ioniz ed calci um, serum or plasm a TCO2 22 mmol/ L 24-29 Not Available [facility] - Home [address] [place], [address], 06/11/2019 14:41:52 06/11/2006/11/2019 BMP + ioniz ed calci um, serum or plasm a glu 160 mg/dL 70-105 Not Available Spr - Home [address] [place], [address], 06/11/2019 14:41:52 06/11/2006/11/2019 BMP + ioniz ed calci um, serum or plasm a BUN 20 mg/dL 8-26 Not Available Spr - Home [address] [place], [address], 06/11/2019 14:41:52 06/11/2006/11/2019 BMP + ioniz ed calci um, serum or plasm a crea 0.5 mg/dL .6-1.3 Not Available Spr - Home [address] [place], [address], 06/11/2019 14:41:52 06/11/2006/11/2019 BMP + ioniz ed calci um, serum or plasm a HCT 37 %_pcv 38-51 Not Available Spr - Home [address] [place], [address], 06/11/2019 14:41:52 06/11/2006/11/2019 BMP + ioniz ed calci um, serum or plasm a Hb 12.6 g/dL 12-17 Not Available Spr - Home [address], [place], [address], 06/11/2019 14:41:52 06/11/20 19 06/11/2019 BMP + ioniz ed calci um, serum or plasm a angap 17 mmol/ L 10- Not Available Spr - Home [address], [place], [address], 06/11/2019 14:41:52 Result Notes None recorded. Procedures Surgical History Date Name Laterality Status Provider Name and Address Organization Details Recorded Time 06/11/20 19 Venipuncture - completed MOISES HINTON NP [address] [place], [address], [place] [facility] 06/11/2019 14:41:40 Imaging Results None recorded. Procedure Notes None recorded. Medical Equipment None Reported. Allergies Allergen ID Allergen Name Allergen Category Reaction Reaction Severity Criticality Documentation Date Start Date Code Code System Note Provider Name and Address Organization Details Recorded Time 16799 Macrobid medicatio n other Not available Not available 06/11/2019 83522 1 RxNorm MOISES HINTON NP [address] [place], [address], [place] [facility] 9 14:28:29 Medications Name Sig Start Date [...] Status Never Smoker MOISES HINTON NP [address] [place], [address], [place] [facility] 06/11/2019 14:31:22 What Was [...] ICD10 Code Diagnosis IMO Codes Diagnosis Note [id number] MOISES HINTON NP [facility] [address] [place] [address] 06/11/2019 14:25:37 06/11/2019 18:00:59 Dizziness 585864519 R42 Health Concerns Section Related Observation LastModified by Organization Detai ls LastModified Time None Recorded Concern Status LastModified by Organization Details LastModified Time None Recorded Advance Directives Directive None Recorded Payers Insurance Date Sequence Insurance Name Policy Number Policy Canales Covered Member ID Canales Member ID Guarantor Name 06/11/2019 1 [facility] Lisa Dewaynellato [id number] Lisa Dewaynellato 06/11/2019 1 *SELF PAY* Lisa Stellato [id number] Lisa Stellato 06/11/2019 1 [facility] Lisa Stellato [id number] Lisa Stellato Notes Date Note Type [...] She has gone to the [facility] for IV fluids before. SHe is tolerating PO fluids and food. No shortness of breath, chest pain, palpitations, abdominal pain.She has the merena and has only occasional irregular spotting with it.No real menses for the past 4 years. MOISES HINTON NP [address] [place], [address], [place] [facility] 06/11/2019 16:13:47 OBGyn Episode No OBEpisode recorded.
--- OUTSIDE RECORDS SUMMARY | 2025-07-01 07:49 | XMS_ITS | Clinical Summary ---
Author Organization [facility] Address [address] [facility] [address] [place] [address] Phone Care Team Providers Care Glue Bone Drier Name Role Phone Caridad Louis MD Primary [...] huff Payer ID:Not on file Type:PPO Address: [place] [id number] GENERIC COMMERCIAL GENERIC COMMERCIAL GENERIC COMMERCIAL GENERIC COMMERCIAL GENERIC COMMERCIAL GENERIC COMMERCIAL GENERIC COMMERCIAL GENERIC COMMERCIAL Care Teams Glue Bone Drier Relationship Specialty Start Date End Date Caridad Louis MD [address] [place] [address] PCP - General Internal Medicine 05/01/18 Additional Source Comments The information contained in this document represents components of the legal health record. It is not the complete legal health record.[facility]
--- OUTSIDE RECORDS SUMMARY | 2025-07-01 07:49 | XMS_ITS | Data Portability ---
Author Organization [facility] Conardo Osullivan [facility] [place] Address [address] [place] [address] Assessment Encounter Date Assessment Date Assessment LastModified [...] Appointment scheduled for 3:00 this afternoon at [facility]. Patient is in not in any [...] suspension for injection 2022 023 [email or web address] [id number], [phone] [place], [address], 3 13:18:54 lidocaine (PF) 10 mg/mL (1 %) injection solution 2022 023 [email or web address] [id number], [phone] [place], [address], 3 13:18:54 Patient TargetsNo targets recorded. Patient [...] lateral collateral ligament of right knee joint 1113476663626 9104 Active 2022 EMELINA SANTOS PA-C [address],[facility], [place], [address], [place] [facility] [place], P 3 19:51:21 Pain of right calf 7547045718422 103 Active 2022 EMELINA SANTOS PA-C [address],[facility], [place], [address], [place] [facility] [place], P 3 13:11:32 Problem Notes None recorded. Procedures Surgical History Date Name Laterality Status Provider Name and Address Organization Details Recorded Time 01/02/2023 Knee Joint/Burs a Asp & Inj completed EMELINA SANTOS PA-C [address],[facility], [place], [address], [place] [facility] [place], P 01/02/2023 13:19:35 12/19/2022 Knee Joint/Burs a Asp & Inj completed EMELINA SANTOS PA-C [address], [place], [address], [place] [facility] [place], P 12/19/2022 19:56:53 Imaging Results None recorded. Procedure Notes None recorded. Medical Equipment None Reported. Allergies Allergen ID Allergen Name Allergen Category Reaction Reaction Severity Criticality Documentation Date Start Date Code Code System Note Provider Name and Address Organization Details Recorded Time 656739 nitrofura ntoin medicatio n Not available Not available Not available 05/25/20252018 7454 RxNorm React ion: Anaph ylaxi s, sever ity: Unkno wn;Re actio n: Itchi ng, sever ity: Unkno wn;Re actio n: Other (See Comme nts), sever ity: Unkno wn;Di fficu lty breat noe Not Available [facility] 5 01:32:16 2631 Non-stero idal anti-infl ammatory agent (substanc e) medicatio n Not available Not available Not available 12/19/2022 09027 5008 SNOMED Nancy Anne null, [place] [facility] [place], P 3 14:47:20 2632 Macrobid medicatio n Not available Not available Not available 12/19/2022 59515 1 RxNorm Nancy Anne null, [place] [facility] [place], P 3 14:47:26 Medications Name Sig Start [...] Updated DateTime 12/19/2022 157.48 cm 57.8 kg/m2 675438.[address] [place] [facility] [place], P 12/19/2022 14:48:12 Social History None recorded. Functional Status Question Answer Note LastModified by Organizat ion Details LastModified Time Do you use any illicit or recreational drugs? No [email or web address] Information not available 12/19/2022 Do you or have you ever used any other forms of tobacco or nicotine? No [email or web address] Information not available 12/19/2022 What is your level of alcohol consumption? None [email or web address] Information not available 12/19/2022 Mental Status None recorded. Family History Relationship Description Onset Age of this Age Resolved Age Notes LastModified by Organization Details LastModified Time Mother Family history of malignant neoplasm [email or web address] Not available 2022 14:48:51 Medical History Condition Response Anemia Y Asthma Y Hypertension Y Gynecological HistoryNo gynecological history recorded. Obstetrics History GPAL:G 0 P 0 0 0 0 Past Encounters Encounter ID Performer Location Encounter Start Date Encounter Closed Date Diagnosis/Indication Diagnosis SNOMED-CT Code Diagnosis ICD10 Code Diagnosis IMO Codes Diagnosis Note [id number] SHANNAN SANDHU [facility] [address] [facility] [address] [place] [address] 12/19/2022 14:32:55 12/19/2022 15:14:51 Sprain of lateral collateral ligament of right knee joint 0585252848 8190886 S83.91XA [id number] SHANNAN SANDHU [facility] [address] [facility] [address] [place] [address] 01/02/2023 12:52:58 01/02/2023 13:20:33 Pain of right calf 3226816232 161896 M79.661 Pain of ri ght knee joint 8805983977 87653 M25.561 Health Concerns Section Related Observation LastModified by Organization Detai ls LastModified Time None Recorded Concern Status LastModified by Organization Details LastModified Time None Recorded Advance Directives Directive None Recorded Payers Insurance Date Sequence Insurance Name Policy Number Policy Canales Covered Member ID Canales Member ID Guarantor Name 01/27/2023 1 ARA (POS) [id number] Digna Foss [id number] Digna Foss Notes Date Note Type [...] pain which prompted her to go to [facility]'s ER. Patient states she was told [...] I personally reviewed these x-rays in the [facility] PACS system and agree with the below noted findings. [facility] [address] [place] [address] Pat ient: DIGNA FOSS/Age/Sex: 1975 - FUnit#: [id number] Location/Status: SPER/PRE ERAccount#: [id number] Mnemonic/Ordering [id number],DOC CR Knee RT 4 [...] findings. Moderately severe osteoarthritis, mildlyprogressive since 04/20/2014.Code 47215Eevflxfxx Physician: TAPAN LOVETT MDElectronically Signed by: TAPAN LOVETT [facility] Date/Time: 12/17/22804Sign date/Time: 12/17/22 08 EMELINA SANTOS PA-C [address] [place] [address], [address], [place] [facility] [place], P 12/19/2022 19:58:33 3 text/html Assessment & [...] family history of DVT. EMELINA SANTOS PA-C [address] [place] [address],[facility] [address], [place], [address], [place] [facility] [place], P 01/02/2023 13:20:34 OBGyn Episode No OBEpisode recorded.
--- OUTSIDE RECORDS SUMMARY | 2025-07-01 07:49 | XMS_ITS | Encounter Summary ---
Author Organization [facility] Address [address] [place] [address] Phone Care Team Providers Care Cop Examiner Name Role Phone Caridad Louis MD Primary Care Provider + Encounter Details Date Type Department Care Team (Late st Contact Info) Description 03/10/2019 Procedure Pass [facility] 4 ENDO DEPT [address] [facility], 4th [place] [address] Social History Tobacco Use Types Packs/Day Years [...] on filedocumented in this encounter Care Teams Cop Examiner Relationship Specialty Start Date End Date Caridad Louis MD [address] [place] [address] PCP - General Internal Medicine 05/01/18 documented as of this encounter Additional Source Comments The information contained in this document represents components of the legal health record. It is not the complete legal health record.[facility]
--- OUTSIDE RECORDS SUMMARY | 2025-07-01 07:49 | XMS_ITS | Clinical Summary ---
Author Organization [facility] Address [address] [place] [address] Care Team Providers Care Beef Cattle Grazier Name Role Phone Caridad Louis MD Primary Care Provider +1- [phone] Allergies Active Allergy Reactions Criticality Noted Date [...] age to complete this topic Care Teams Beef Cattle Grazier Relationship Specialty Start Date End Date Caridad Louis MD [address] [place] [address] PCP - General Internal Medicine 12/21/21
--- OUTSIDE RECORDS SUMMARY | 2025-07-01 07:49 | XMS_ITS | Encounter Summary ---
Author Organization [facility] Address [address] [place] [address] Care Team Providers Care Email Marketing Coordinator Name Role Phone Caridad Louis MD Primary Care Provider +1- [phone] Encounter Details Date Type Department Care Team (Late st Contact Info) Description 09/03/2024 [place] Message [facility] Financial Counseling Department [address] [place] [address] Mychart, Generic Provider [address] [place], [place] [id number] Financial Assistance Social History Tobacco Use Types [...] on filedocumented in this encounter Care Teams Email Marketing Coordinator Relationship Specialty Start Date End Date Caridad Louis MD [address] [place] [address] PCP - General Internal Medicine 05/05/24 documented as of this encounter
--- OUTSIDE RECORDS SUMMARY | 2025-07-01 07:49 | XMS_ITS | Encounter Summary ---
Author Organization [facility] Address [address] [address] Phone Care Team Providers Care Delivery Man Name Role Phone Caridad Louis MD Primary Care Provider + Reason for Referral * Consultation (Within 1 month) - Closed Specialty Diagnoses / Procedures Referred By Megha franco Referred To Contact Gastroenterology Diagnoses Abdominal pain, unspecified abdominal location Persistent vomiting Caridad Louis MD [address] [place] [address] Phone: tel: fax: Soto Noble MD, PhD Phone: tel: fax: [email or web address] Referral ID Status Reason Start Date Expiration Date Visits Re quested Visits Authorized [id number] Closed 12/15/2018 12/16/2019 1 1 Encounter Details Date Type Department Care Team (Latest Contact Info) Description 12/15/2018 Transcribe Orders [facility] [address] [place] [address], [address]th [place] [address] Caridad Louis MD [address] [place] [address] Abdominal pain, unspecified abdominal location (Primary Dx); [...] Associated Diagnoses Order Schedule Ambulatory referral to [facility] Gastroenterology (Consult Requests Only) Outpatient Referral Routine Abdominal pain, unspecified abdominal location Persistent vomiting Ordered: 12/15/2018 documented as of this encounter Visit Diagnoses Diagnosis Abdominal pain, unspecified abdominal location- Primary Persistent vomiting documented in this encounter Care Teams Delivery Man Relationship Specialty Start Date End Date Caridad Louis MD [address] [place] [address] PCP - General Internal Medicine 05/01/18 documented as of this encounter Additional Source Comments The information contained in this document represents components of the legal health record. It is not the complete legal health record.[facility]
--- OUTSIDE RECORDS SUMMARY | 2025-07-01 07:50 | XMS_ITS | Patient Health Record ---
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) Active confirmed Problem Body mass index 40+ - morbidly obese (811845420) Body mass index [BMI] 50.0-59.9, adult (Z68.43) Active confirmed Plan Of Treatment No Information Insurance Providers Payer Name Payer Address Payer Phone Subscriber Number Group Number Insured Name Patient Relationship to Insured Coverage Start Date Coverage End Date [employer] [address] [address] [place] [address] [phone] [id number] Lisa Foss Self - patient is the [...] following gastric bypass COVID vaccinated X 2 ([employer]) and [address] ([employer]) Surgical History Surgery Date(Month/Year) colonoscopy 08/24/2020, 11/27/2016, [...]
== END ==
LOC: HO.NUCMED 07:45
PROVIDERS: Visit Provider Internal Medicine Gastroenterology
DX: R68.81 Early satiety (principal)
CPT/HCPCS: 78264; A9541

== ENCOUNTER → 2025-07-01 07:46 | Outpatient (BNV) | payer OTHER, SELFPAY | PROVIDERS: Visit Provider Radiology Diagnostic Radiology | DX: R68.81 Early satiety (principal) | CPT/HCPCS: 78264 ==

== ENCOUNTER → 2025-07-02 09:57 | Outpatient (BNVA) | payer OTHER, SELFPAY | PROVIDERS: Visit Provider Physician Assistant | DX: Z13.89 Encounter for screening for other disorder (principal) | CPT/HCPCS: 99214 ==

== ENCOUNTER 2025-07-06 10:38 | Outpatient (AMB) | payer OTHER, SELFPAY ==
--- OUTSIDE RECORDS SUMMARY | 2025-07-03 08:08 | XMS_ITS | Encounter Summary ---
Author Organization [facility] Address [address] [place] [address] Care Team Providers Care Maintenance Mechanic Engine Name Role Phone Caridad Louis MD Primary Care Provider [phone] Reason for Referral * Imaging (Routine) - Pending Review Specialty Diagnoses / Procedures Referred By Megha franco Referred To Contact Cardiology Diagnoses Shortness of breath Procedures Transthoracic echocardiogram (TTE) complete with PRN contrast, bubble, strain, and 3D order panel SD TTE W 2D IMAGE COMPLETE W DOPPLER ECHO & COLOR FLOW DOPPLER ECHO SD PROSPER 2D COMPLETE W/CONTRAST OR W & WO CONTRAST WITH DOPPLER Caridad Berry PA [address] [place] [id number] Phone: tel: fax: [facility] Referral ID Status Reason Start Date Expiration Date V isits Requested Visits Authorized [id number] Pending Review 07/04/2025 07/04/2026 1 1 Reason for Visit * Reason Comments Shortness of Breath * Auth/Cert (Routine) Specialty Diagnoses / Procedures Referred By Megha franco Referred To Contact Diagnoses Shortness of breath Mild intermittent asthma with exacerbation Asthma exacerbation Bilateral lower extremity edema Procedures SD COMPREHENSIVE AUDIOMETRY THRESHOLD EVALUATION AND SPEECH RECOGNITION Brie Pollard MD [address] [place] [address] Phone: tel: fax: [facility] [address] [place] [address] Phone: tel: Referral ID Status Reason Start Date Expiration Date Visits Re quested Visits Authorized [id number] 1 1 Encounter Details Date Type Department Care Team (Latest Contact Info) Description 07/03/2025 9:08 AM EDT - 07/04/2025 11:29 AM EST Hospital Encounter [facility] [address] [place] [address] Jennifer Mendes MD [address] [place] [id number] Brie Pollard MD [address] [place] [address] [id number] Marimar Moncada MD [address] [place] [address] Mild intermittent asthma with exacerbation (Primary Dx); Shortness of breath; Bilateral lower extremity edema Discharge Disposition: Home or Self Care Social History Tobacco Use Types Packs/Day Years Used Date Smoking Tobacco: Former Cigarettes Alcohol Use Standard Drinks/Week Comments Yes 0 (1 standard drink = 0.6 oz pur e alcohol) Housing Instability Answer Date Recorde d Are you worried that in the next 2 months you may not have stable housing? No 07/03/2025 Food Access & Nutrition Answer Date Rec orded Do you have access to a vari ety of food including fruits and vegetables? Yes 07/03/2025 Financial Risk Answer Date Recorded How hard is it for you to pa y for the very basics like food, housing, medical care, and air conditioning / heating? Somewhat hard 07/03/2025 Transportation Answer Date Recorded Has the lack of transportati on kept you from meetings, work, or from getting things needed for daily living? No Has the lack of transportati on kept you from medical appointments or from getting medications? No 07/03/2025 Food Risk Answer Date Recorded Within the past 12 months we worried whether our food would run out before we got money to buy more. Never true 07/03/2025 Within the past 12 months th e food we bought just didn't last and we didn't have money to get more. Never true 07/03/2025 Living Situation Answer Date Recorded What is your living situation? Unrecognized valu e 07/03/2025 Interpersonal Safety Answer Date Record ed Physical Abuse Unrecognized value 07/03/2025 Verbal Abuse Unrecognized value 07/03/2025 Comments Unknown Sex and Gender Information Value Date Recorded Sex Assigned at Not on file Legal Sex Female 6:44 PM EST Gender Identity Not on file Sexual Orientation Not on file documented as of this encounter Last Filed Vital Signs Vital Sign Reading Time Taken Comments Blood Pressure 110/75 07/04/2025 7:57 AM EST Pulse 82 07/04/2025 7:57 AM EST Temperature 36.4 C (97.5 F) 07/04/2025 7:57 AM EST Respiratory Rate 18 07/04/2025 7:57 AM EST Oxygen Saturation 98% 07/04/2025 7:57 AM EST Inhaled Oxygen Concentration - - Weight 162 kg (357 lb 9.6 oz) 07/04/2025 6:28 AM EST Height 160 cm (5' 3 ) 07/03/2025 9:05 AM EDT Body Mass Index 63.35 07/03/2025 9:05 AM EDT documented in this encounter Functional Status * Calculated C-SSRS Risk Score (Lifetime/Recent) Answer Date of Assessment Author No Risk Indicated 07/03/2025 9:03 AM EDT Bobby Gray RN * Ada Suicide Severity Rating Scale (Screener/Recent Self-Report) Question Answer Date of Assessment Author 1. Wish to be (Past 1 Month) No 025 9:03 AM EDT Bobby Gray, RN 2. Non-Specific Active Suici efren Thoughts (Past 1 Month) No 07/03/2025 9:03 AM EDT Attila Gray, RN 6. Suicidal Behavior (Lifetime) No 9:03 AM EDT Bobby Gray, RN documented as of this encounter Discharge Summaries * COTY Flynn - 07/04/2025 11:13 AM EST Images from the original note were not included. JONATHAN DISCHARGE SUMMARY Patient Information Lisa Foss : 1975 [49 y.o.] Admitting Provider Brie Pollard MD Discharge Provider COTY Flynn, Marimar Moncada MD Primary Care Physician Caridad Louis MD Admission Date 07/03/2025 Discharge Date 07/04/2025 Summary of Hospital Problems Primary Discharge Diagnosis: Asthma exacerbation Secondary Discharge Diagnosis: Morbid obesity status post gastric bypass DARRIUS with CPAP compliance Moderate persistent asthma GERD Anemia Cardiomegaly Discharge Destination: Home Code Status at Discharge: Full Code - Default Hospital Course Summary LOS: 0 days This is a 49-year-old female past medical history of morbid obesity status post gastric bypass, asthma, anemia, GERD, arthritis, bilateral lower extremity edema, DARRIUS on CPAP, 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 She reports associated dry coughwhich feels like she is aspirating but denies any fevers or chills. Shortness of breath is occurring with exertion. She reports 40 pound weight gain since March, does follow with weight management. She also reports increased lower extremity swelling. Denies history of heart failure. She denies anychange in her diet or decrease in activity to account for her weight gain. She reports compliance with CPAP for her DARRIUS. She denies any episodes of chest pain. Reports history of severe psychosis when she has received steroids in the past for treatment of her asthma. She also reports recent diagnosis of gastroparesis. Upon arrival to the ED temperature 36.6 pulse 120 RR 25 BP 119/107 SpO2 97% on room air. Lab workupshowed sodium 142 potassium 4.1 chloride 111 glucose 120 creatinine 0.84 AST 17 ALT 22 ALP 137 lipase 15 BNP less than 2 high-sensitivity troponin 35, repeat 32. hCG negative WBC 7.4, H&H 11.8/38.6 platelet 201. D- dimer 230. Respiratory viral panel negative. Initial EKG in the ED suggested AV dual paced rhythm however she does not have pacemaker- Suspect this is due to her urinary electronic stimulator device. Bilateral venous duplex was negative for DVTs. Chest x-ray showed no definite acute pneumonia or edema with prominent cardiac silhouette. Chest CTA was negative for PE or acute pneumonia. In the ED she received 3 mL DuoNeb and she was subsequently admitted to the medical service for further observation and management. 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 Chest CTA in the ED was negative for PE or pneumonia. BNP WNL along with troponins. She was tachypneic in the ED and has a history of steroid-induced psychosis with steroids and therefore admission requested for further observation and management of her dyspnea on exertion/suspected asthma exacerbation. Dyspnea on exertion Suspected OHS. Dyspnea may be due to some volume overload versus acute asthma exacerbation versus restrictive lungdisease in the setting of suspected obesity hypoventilation syndrome vs chronic aspiration. As above CTA negative for PE/pneumonia. Full viral panel negative Patient treated with DuoNeb 4 times daily and initiated on IV Lasix 20 mg BID This morning she is evaluated after ambulating back from the bathroom and being off the oxygen for several minutes. She continues to saturate 100% on room air. Patient with good air movement and no crackles on exam this morning. She points out that she feels labored breathing. Question an anxiety component. Unclear cause of her dyspnea on exertion at this time. She is followed by Dr. Rowland at [facility] pulmonary. She will require additional outpatient evaluation. --Outpatient f/u with pulmonology Cardiomegaly BNP WNL however can be falsely low in obese patients --Outpatient echocardiogram ordered Mild acute asthma exacerbation With history of steroid-induced psychosis Had some wheezing per ED provider, resolved after nebulizer. She reports that she takes Advair 500/50 1 puff twice daily and Combivent Respimat 4 times daily. She reports better tolerance to a MedrolDosepak over prednisone. I will prescribe a Medrol Dosepak and resume Singulair 10 mg p.o. nightly.Again, short- term follow-up with primary global program director. Bilateral lower extremity edema Venous duplex negative for DVTs. I cannot appreciate significant lower extremity edema due to body habitus and morbid obesity. She received IV Lasix 20 mg twice daily while here with good urine output. Will prescribe 40 mg of Lasix p.o. daily x 7 days with short-term follow-up from PCP at that time. DARRIUS --CPAP bedtime. She reports good compliance however the machine is over 5 years old and has not hadany titration study since that time. Question if her settings may be insufficient at this point based on weight gain. Patient to contact Alex to evaluate her machine and settings. Morbid obesity BMI 58 Status post gastric bypass Reports 40 pound weight gain since March Follows with weight management GERD --Pepcid 20 mg twice daily no evidence of aspiration here. Anemia H&H stable 11.8/38.6 Follow-Up Instructions and Recommendations Alecia Rowland MD [address] [facility] PUL[facility] [id number] Contact your global program director for hospital follow up appointment Discharge Procedure Orders Provider: Order Specific Question Answer Comments Instructions for follow-up: Contact your global program director for hospital follow up appointment Transthoracic echocardiogram (TTE) complete with PRN contrast, bubble, strain, and 3D order panel Standing Status: Future Standing Exp. Date: 07/04/26 Scheduling Instructions: PREFERRED SCHEDULE LOCATION: Order Specific Question Answer Comments Contrast Enhancement (Bubble Study or Definity) may be used if criteria listed in established evidence-based protocol has been identified. Contrast and bubble study per evidence based protocol In what REGION should this be scheduled? [facility] [[id number]] Release to patient Immediate [1] There are no outpatient Patient Instructions on file for this admission. Discharge Medications Your medication list START taking these medications Instructions Last Dose Given Next Dose Due furosemide 40 mg tablet Commonly known as: LASIX Take 1 tablet (40 mg total) by mouth 1 (one) time each day for 7 days. methylPREDNISolone 4 mg tablet Commonly known as: MEDROL DOSPAK Take as directed on package. montelukast 10 mg tablet Commonly known as: SINGULAIR Take 1 tablet (10 mg total) by mouth at bedtime. CONTINUE taking these medications Instructions Last Dose Given Next Dose Due ARIPiprazole 20 mg tablet Commonly known as: ABILIFY Take 1 tablet (20 mg total) by mouth 1 (one) time each day. clonazePAM 1 mg tablet Commonly known as: KlonoPIN Take 1 tablet (1 mg total) by mouth 2 (two) times a day. lamoTRIgine 200 mg tablet Commonly known as: LaMICtal Take 1 tablet (200 mg total) by mouth 2 (two) times a day. mirtazapine 15 mg disintegrating tablet Commonly known as: REMERON ADA-TAB Dissolve 1 tablet (15 mg total) on top of the tongue at bedtime. nortriptyline 10 mg capsule Commonly known as: PAMELOR Take 1 capsule (10 mg total) by mouth at bedtime. pregabalin 100 mg capsule Commonly known as: LYRICA Take 1 capsule (100 mg total) by mouth 3 (three) times a day. sertraline 50 mg tablet Commonly known as: ZOLOFT Take 1 tablet (50 mg total) by mouth 1 (one) time each day. Where to Get Your Medications These medications were sent to [facility][id number] - [address] AT [address] [address] Hours: 24-hours furosemide 40 mg tablet methylPREDNISolone 4 mg tablet montelukast 10 mg tablet Physical Exam at time of Discharge Physical Exam Constitutional: Appearance: Normal appearance. She is obese. HENT: Head: Normocephalic and atraumatic. Mouth/Throat: Mouth: Mucous membranes are moist. Eyes: Extraocular Movements: Extraocular movements intact. Conjunctiva/sclera: Conjunctivae normal. Pupils: Pupils are equal, round, and reactive to light. Cardiovascular: Rate and Rhythm: Normal rate and regular rhythm. Heart sounds: Normal heart sounds. Pulmonary: Effort: Pulmonary effort is normal. Breath sounds: Normal breath sounds. No wheezing, rhonchi or rales. Abdominal: General: Bowel sounds are normal. There is no distension. Palpations: Abdomen is soft. There is no mass. Tenderness: There is no abdominal tenderness. There is no guarding. Musculoskeletal: General: Normal range of motion. Cervical back: Normal range of motion. Skin: General: Skin is warm and dry. Neurological: General: No focal deficit present. Mental Status: She is alert and oriented to person, place, and time. Psychiatric: Mood and Affect: Mood normal. Behavior: Behavior normal. Vitals Visit Vitals BP 110/75 (BP Location: Right arm, Patient Position: Lying) Pulse 82 Temp 36.4 ??C (97.5 ??F) (Temporal) Resp 18 Temp (24hrs), Av.6 ??C (97.8 ??F), Min:36.4 ??C (97.5 ??F), Max:37.1 ??C (98.8 ??F) Body mass index is 63.35 kg/m??. No results found for: PTWT , PTHT Latest Reference Range & Units Most Recent Sodium 133 - 145 mmol/L 140 07/04/25 05:42 Potassium 3.5 - 5.5 mmol/L 4.4 07/04/25 05:42 Chloride 96 - 110 mmol/L 106 07/04/25 05:42 CO2 21 - 32 mmol/L 28 07/04/25 05:42 Anion Gap 3 - 11 6 07/04/25 05:42 Glucose 70 - 100 mg/dL 106 (H) 07/04/25 05:42 BUN 5 - 25 mg/dL 14 07/04/25 05:42 Creatinine 0.50 - 1.10 mg/dL 0.76 07/04/25 05:42 Calculated GFR >=60 mL/min/1.73m2 96 07/04/25 05:42 BUN/Creatinine Ratio - 18.4 07/04/25 05:42 Calcium 8.5 - 10.5 mg/dL 8.9 07/04/25 05:42 AST (SGOT) 10 - 42 unit/L 17 07/03/25 09:41 ALT (SGPT) 10 - 60 unit/L 22 07/03/25 09:41 Alkaline Phosphatase 42 - 121 unit/L 137 (H) 07/03/25 09:41 Total Protein 6.0 - 8.0 g/dL 7.0 07/03/25 09:41 Albumin 3.2 - 5.0 g/dL 3.6 07/03/25 09:41 Total Bilirubin 0.0 - 1.4 mg/dL 0.4 07/03/25 09:41 Magnesium 1.9 - 2.6 mg/dL 2.3 07/03/25 09:41 Lipase 13 - 75 unit/L 15 07/03/25 09:41 B Type Natriuretic Peptide <=100 pcg/mL <2 07/03/25 09:41 TROPONIN I, HIGH SENSITIVITY <=54 ng/L 32 07/03/25 11:12 hCG Qual Negative Negative 07/03/25 09:41 Auto WBC 4.8 - 10.8 K/mcL 7.4 07/03/25 09:41 RBC 3.80 - 4.80 M/mcL 4.50 07/03/25 09:41 Hemoglobin 11.5 - 16.0 g/dL 11.8 07/03/25 09:41 Hematocrit 35.0 - 47.0 % 38.6 07/03/25 09:41 MCV 79.0 - 98.0 FL 85.6 07/03/25 09:41 MCH 27.0 - 32.0 pcg 26.2 (L) 07/03/25 09:41 MCHC 32.0 - 37.0 g/dL 30.6 (L) 07/03/25 09:41 RDW 11.0 - 15.0 % 14.5 07/03/25 09:41 Platelets 130 - 400 K/mcL 201 07/03/25 09:41 MPV 7.0 - 11.0 FL 10.2 07/03/25 09:41 (H): Data is abnormally high (L): Data is abnormally low Latest Reference Range & Units Most Recent Adenovirus Detection by PCR Not Detected Not Detected 07/03/25 10:33 Bordetella pertussis Not Detected Not Detected 07/03/25 10:33 Coronavirus 229E Not Detected Not Detected 07/03/25 10:33 Coronavirus HKU1 Not Detected Not Detected 07/03/25 10:33 Coronavirus NL63 Not Detected Not Detected 07/03/25 10:33 Coronavirus OC43 Not Detected Not Detected 07/03/25 10:33 Human Metapneumovirus A and B Not Detected Not Detected 07/03/25 10:33 Flu A PCR Not Detected Not Detected 07/03/25 10:33 Flu B PCR Not Detected Not Detected 07/03/25 10:33 Mycoplasma pneumo by PCR Not Detected Not Detected 07/03/25 10:33 Parainfluenza Virus 1 Not Detected Not Detected 07/03/25 10:33 Parainfluenza Virus 2 Not Detected Not Detected 07/03/25 10:33 Parainfluenza Virus 3 Not Detected Not Detected 07/03/25 10:33 Parainfluenza Virus 4 Not Detected Not Detected 07/03/25 10:33 Respiratory virus panel molecular study Rpt 07/03/25 10:33 Respiratory Syncytial Virus Not Detected Not Detected 07/03/25 10:33 Human Rhinovirus/ Enterovirus Not Detected Not Detected 07/03/25 10:33 SARS-CoV-2 Qual RT PCR Not Detected Not Detected 07/03/25 10:33 Specific [place], Urine 1.003 - 1.030 1.018 07/03/25 16:40 pH, Urine 5.0 - 8.0 pH 6.0 07/03/25 16:40 Protein, Urine <=Trace mg/dL Negative 07/03/25 16:40 Glucose, Urine Negative mg/dL Negative 07/03/25 16:40 Ketones, Urine Negative mg/dL Negative 07/03/25 16:40 Bilirubin, Urine Negative Negative 07/03/25 16:40 Blood, Urine Negative Negative 07/03/25 16:40 Urobilinogen, Urine 0.2 - 1.0 mg/dL 0.2 07/03/25 16:40 Nitrite, Urine Negative Negative 07/03/25 16:40 Leukocytes, Urine Negative Small ! 07/03/25 16:40 WBC, Urine 0 - 4 /HPF 3.1 07/03/25 16:40 RBC, Urine 0 - 4 /HPF 9.5 (H) 07/03/25 16:40 Squamous Epithelial, Urine 0 - 60 /LPF 53 07/03/25 16:40 Bacteria, Urine Negative /HPF Few ! 07/03/25 16:40 Hyaline Casts, Urine 0 - 3 /LPF 0.8 07/03/25 16:40 !: Data is abnormal (H): Data is abnormally high Rpt: View report in Results Review for more information CTA CHEST WITH CONTRAST CLINICAL INFORMATION: Clinical suspicion of pulmonary embolus. COMPARISON: None TECHNIQUE: CT angiography using pulmonary embolus timing Multidetector CT. Examination of the chest. Examination of the chest following the IV administration of nonionic contrast. Reformatting in the coronal and sagittal planes. DLP: 1580 mGy-cm Dose optimization was performed including the use of low-dose iterative reconstruction technique with automatic exposure control based on patient size. Type of contrast: ISOVUE 370 Volume of IV contrast: 155 mL Volume of contrast discarded: 0 mL FINDINGS: QUALITY: Adequate PULMONARY ARTERIES: No pulmonary embolus demonstrated LUNG: No suspicious abnormality of the trachea or mainstem bronchi. Expiratory result. No large area of pneumonia. Hypoinflation. I doubt alveolar edema. MEDIASTINUM: There are no enlarged mediastinal or hilar lymph nodes. No suspicious abdominal evaluate the esophagus CARDIAC: The heart appears enlarged but there is no pericardial fluid. There is no CT evidence of elevated right heart pressures. CORONARY CALCIFICATION: None VASCULAR: No thoracic aortic aneurysm or dissection. The central pulmonary arteries are prominent. PLEURAL: There is no pleural fluid or pneumothorax AXILLA/CHEST WALL: There are no enlarged axillary lymph nodes. No chest wall mass demonstrated MUSCULOSKELETAL: No focal bony lesion. Suspect anomalies of the upper right ribs VISUALIZED UPPER ABDOMEN: Reveals bariatric surgery. Fatty change in the liver. Fairly circumscribed nonspecific 2 cm low attenuating lesion in the right lobe. There is no reflux of contrast into theIVC or hepatic veins. Impression: No pulmonary embolus demonstrated. No acute pneumonia. -------- FINAL REPORT -------- Dictated By: Lion Lee Dictated Date: 07/03/2025 11:08 ET Assigned Physician: Lion Lee Reviewed and Electronically Signed By: Lion Lee Signed Date: 07/03/2025 11:16 ET Workstation ID: [id number] Transcribed By: Self Edit Transcribed Date: 07/03/2025 11:08 ET XR Chest 2 Views [[id number]] Collected: 07/03/25 1049 Order Status: Completed Updated: 07/03/25 1055 Narrative: EXAMINATION: CHEST CLINICAL INFORMATION: Chest pain COMPARISON: Frontal view 07/11/23 TECHNIQUE: Sitting frontal and lateral views of the chest FINDINGS: Habitus limits the exam. Devices overlie the patient. Prominent cardiac silhouette which is accentuated by positioning. No large hilar mass. No alveolar edema. No lobar segmental consolidation. No significant pleural fluid or pneumothorax. I suspect a developmental abnormality in the upper right ribs which is likely unchanged. Impression: Limited study. No definite acute pneumonia or edema. -------- FINAL REPORT -------- Dictated By: Lion Lee Dictated Date: 07/03/2025 10:49 ET Assigned Physician: Lion Lee Reviewed and Electronically Signed By: Lion Lee Signed Date: 07/03/2025 10:50 ET Workstation ID: [id number] Transcribed By: Self Edit Transcribed Date: 07/03/2025 10:49 ET Vascular US Duplex Lower Extremity Venous Bilateral [[id number]] Collected: 07/03/25 1009 Order Status: Completed Updated: 07/03/25 1021 Narrative: EXAM: DUPLEX ULTRASOUND LOWER, BILATERAL HISTORY: Bilateral lower extremity edema. Clinical concern for deep venous thrombosis The report of duplex of the right lower extremity 01/02/23 was-no DVT TECHNIQUE: Real-time ultrasonography of the venous system from the groin to the proximal calf is performed. Compression and augmentation were used as needed. Color mapping was performed. Doppler spectral analysis was performed. FINDINGS: The venous system from the groin into the proximal calf was visualized and compressible. The caliber appears within normal limits. The visualized venous system is compressible. There is appropriate color saturation of the lumen. Appropriate spectral waveforms were obtained during augmentation and compression. No other significant findings. Impression: No deep venous thrombosis demonstrated. -------- FINAL REPORT -------- Dictated By: Lion Lee Dictated Date: 07/03/2025 10:09 ET 40 minutes spent reviewing medical record, evaluating the patient, coordinating care with ICC, RN and attending physician to facilitate today's discharge. Cosigned by Marimar Moncada MD at 07/04/2025 11:33 AM EST Associated attestation - Marimar Moncada MD - 07/04/2025 11:33 AM EST Patient is seen and examined , imaging, labs and medications were discussed in detail with the midlevel Plan of care was established and agreed upon as outlined by the midlevel note. I agree with thegeneral content of the note above unless stated otherwise. I conducted an independent review of themedical chart and formulated the care plan in its entirety. 49-year-old DARRIUS on CPAP came in with shortness of and was admitted for acute patient. On arrival chest CTA was also done was negative for any PE Or an infiltrate. Patient did not required any oxygen. She does not have and no need for antibiotics she follows with [facility] pulmonology. No evidence of hypoxia currently oxygen saturation is 100% on room air. Patient will continue home inhalers we cannot give prednisone as patient has history ofsteroid-induced psychosis. documented in this encounter Discharge Instructions * Discharge Instructions* COTY Flynn - 07/03/2025 11:31 AM EDT Continue taking Advair 500/50 1 puff twice daily and Combivent 4x daily. Singulair has been re-prescribed for your. Steroids may be beneficial but may increase your rene. Contact your global program director for hospital follow up appointment. Also please contact [facility] to evaluate your CPAP machine. You may need a change of settings. An echocardiogram has been ordered. They will contact you Saturday to schedule this. Recommend Low salt diet to help decrease water retention. Instructions above. * Attachments The following attachments cannot be sent through Care Everywhere. * Asthma: General Info (Cuban) * Dealing With Asthma Triggers: Video (Cuban) * Asthma: Myths About Inhaled Steroids: Video (Cuban) * Low Sodium Diet (Cuban) * Low Sodium Foods: General Info (Cuban) documented in this encounter Medications at Time of Discharge ARIPiprazole (ABILIFY) 20 mg tablet Take 1 tablet (20 mg total) by mouth 1 (one) time each day. clonazePAM (KlonoPIN) 1 mg tablet Take 1 tablet (1 mg total) by mouth 2 (two) times a day. lamoTRIgine (LaMICtal) 200 mg tablet Take 1 tablet (200 mg total) by mouth 2 (two) times a day. mirtazapine (REMERON ADA-TAB) 15 mg disintegrating tablet Dissolve 1 tablet (15 mg total) on top of the tongue at bedtime. nortriptyline (PAMELOR) 10 mg capsule Take 1 capsule (10 mg total) by mouth at bedtime. pregabalin (LYRICA) 100 mg capsule Take 1 capsule (100 mg total) by mouth 3 (three) times a day. sertraline (ZOLOFT) 50 mg tablet Take 1 tablet (50 mg total) by mouth 1 (one) time each day. furosemide (LASIX) 40 mg tablet Take 1 tablet (40 mg total) by mouth 1 (one) time each day for 7 days. 7 each 07/04/2025 5 methylPREDNISolone (MEDROL DOSPAK) 4 mg tablet Take as directed on package. 21 tablet 07/04/2025 5 montelukast (SINGULAIR) 10 mg tablet Take 1 tablet (10 mg total) by mouth at bedtime. 30 each 07/04/2025 5 documented as of this encounter Ordered Prescriptions Prescription Sig Dispense Quantity Refills Last Filled Start Date End Date methylPREDNISolone (MEDROL DOSPAK) 4 mg tablet Take as directed on package. 21 tablet 07/04/2025 5 montelukast (SINGULAIR) 10 mg tablet Take 1 tablet (10 mg total) by mouth at bedtime. 30 each 07/04/2025 5 furosemide (LASIX) 40 mg tablet Take 1 tablet (40 mg total) by mouth 1 (one) time each day for 7 days. 7 each 07/04/2025 5 documented in this encounter Discharge Disposition Disposition Code Departure Means Destination Comment s Home or Self Care Car Home documented in this encounter Progress Notes * Nguyen Saleh RN - 07/04/2025 11:10 AM EST Education provided with regards to scripts/meds and f/u appointments. Patient acknowledged. * Zhanna Bedoya RN - 07/04/2025 10:22 AM EST Problem: Respiratory: Gas Exchange Impairment Goal: Levels of oxygenation will improve Outcome: Adequate for Discharge Problem: Respiratory: Breathing Pattern Impairment Goal: Ability to maintain normal pulse oximetry readings will improve Outcome: Adequate for Discharge Goals: Identify possible barriers to meeting goals/advancing plan of care: none Stability of the patient: Moderately Stable - Low risk of patient condition declining or worsening End of Shift Summary: patient VSS. Plan of care explained to patient. Patient discharged today. Care on going. * Florencia Kim RN - 07/04/2025 10:20 AM EST 07/04/25 1019 Transportation Transportation at discharge Other (comment) What day is the transport expected? 07/04/25 Final Discharge Disposition Home or Self Care * Megan Chen RN - 07/04/2025 3:14 AM EST Goals: Problem: Respiratory: Gas Exchange Impairment Goal: Levels of oxygenation will improve Outcome: Progressing Identify possible barriers to meeting goals/advancing plan of care: await symptoms to improve Stability of the patient: Moderately Stable - Low risk of patient condition declining or worsening End of Shift Summary: vss afebrile. Pt unable to tolerate cpap. O2 2 l ordered for supplemental. Cont to c/o dyspnea. Denies c/p * Corinne Villagomez RN - 07/03/2025 3:10 PM EDT 07/03/25 1506 Initial Transition Plan Initial Transition Plan Home Back up Transition Plan Back up Transition plan Home Discharge Planning Contact (Name, Phone #, Relationship) for DC Planning [place] spouse [phone] Living Arrangements Spouse/significant other Type of Residence Private residence (one story with 3 steps to enter home) Assistive Devices Other (Comment) (CPAP at night) Support Systems Spouse/significant other Medication Coverage Has Med Coverage Under Insurance Plan Yes Medication Affordability No concerns related to payment for meds Informed Choice Informed Choice Given? Yes (choice form completed) Transportation Transportation at discharge Other (comment) (self if able) Met with pt in regards to discharge planning, demographics, PCP, insurance reviewed. [facility]ses [facility]. Pt is not a . No current in home services. Pt declines need for home care referral at this time independent at baseline. * Alisson Dee RN - 07/03/2025 2:30 PM EDT ED RN HANDOFF (All Agrawal Below Must Be Completed) Reason/Diagnosis for Admission: Mild intermittent asthma with exacerbation Type of Admission: [x] Medsurg, [] Telemetry Already in a Hospital Bed: [] Yes / [x] No Room Considerations/Precautions (ex: fever, diarrhea, or any infectious concerns): [] Yes / [x] No Licensed Funeral Director And Embalmer: [] Yes / [x] No If YES, Cardiac Rhythm: [] NSR, [] SB, [] ST, [] A-FIB, [] A-Flutter, [] Pacemaker, [] 1st Degree HB, [] 2nd Degree HB, [] 3rd Degree HB Reason for Licensed Funeral Director And Embalmer: VS: Visit Vitals BP 98/69 (Patient Position: Sitting) Pulse 55 Temp 37.1 ??C (98.8 ??F) (Oral) Resp 16 Ht 1.6 m (63 ) Wt 150 kg (330 lb) SpO2 97% BMI 58.46 kg/m?? Smoking Status Former BSA 2.39 m?? Current Mental Status: A/O x [x]4, []3, []2, []1 Current Ambulation Status: steady gait IV Access: [x] Yes / [] No Field IV present: [] Yes / [x] No Hx of Violence: [] Yes / [x] No / [] Unknown Fall Risk:[] Yes / [x] No Yellow Bracelet Applied [] Yes / [] No Yellow Socks Applied [] Yes / [] No Patient Belongings inventoried and BL completed: [x] Yes / [] No Patient belongings stored in the security closet: [] Yes (If Yes please supply Security bag #): [x] No Patient Medications stored in Pharmacy: [] Yes (If Yes please supply Medication Security bag #): [x] No ED Summary of Care: [Medical History] [Medical History] Past Medical History Diagnosis Date Acid reflux DX:Acid reflux Acute back pain DX:Acute back pain Anxiety DX:Anxiety Asthma exacerbation DX:Asthma exacerbation Asthma, moderate persistent, poorly-controlled DX:Asthma, moderate persistent, poorly-controlled Bloating DX:Bloating Cervical radiculopathy DX:Cervical radiculopathy Chest pain DX:Chest pain Chondromalacia patellae DX:Chondromalacia patellae COVID-19 DX:COVID-19 Depression DX:Depression Fatigue DX:Fatigue Flank pain DX:Flank pain Foot pain DX:Foot pain Hematuria DX:Hematuria Hiatal hernia DX:Hiatal hernia History of gastric bypass DX:History of gastric bypass Hyperglycemia DX:Hyperglycemia Hyperplastic adenomatous polyp of stomach DX:Hyperplastic adenomatous polyp of stomach Hypothyroidism DX:Hypothyroidism IFG (impaired fasting glucose) DX:IFG (impaired fasting glucose) Iron deficiency anemia DX:Iron deficiency anemia Knee pain DX:Knee pain Leg pain DX:Leg pain Leg swelling DX:Leg swelling Low back pain DX:Low back pain LUQ pain DX:LUQ pain Mood disorder (CMS/HCC V24) DX:Mood disorder (HCC) Morbid obesity with BMI of 50.0-59.9, adult (CMS/HCC V24, CMS/HCC V28) DX:Morbid obesity with BMI of 50.0-59.9, adult (HCC) Nausea DX:Nausea Neuropathy DX:Neuropathy Non-cardiac chest pain DX:Non-cardiac chest pain Obstructive sleep apnea DX:Obstructive sleep apnea Otitis media of left ear DX:Otitis media of left ear Pneumonia DX:Pneumonia Rectovaginal fistula DX:Rectovaginal fistula Recurrent UTI DX:Recurrent UTI Seasonal allergic rhinitis DX:Seasonal allergic rhinitis Severe obesity (CMS/HCC V24, CMS/HCC V28) DX:Severe obesity (HCC) Thrombocytopenia (CMS/HCC V24) DX:Thrombocytopenia (HCC) Vaginal discharge DX:Vaginal discharge Weight gain following gastric bypass surgery DX:Weight gain following gastric bypass surgery [Surgical History] [Surgical History] Past Surgical History Procedure Laterality Date BLADDER SURGERY 2016 PROCEDURE: HISTORICAL BLADDER SURGERY; COMMENT: Implantation of electronic stimulator CHOLECYSTECTOMY 06/02/2010 PROCEDURE: SD LAPAROSCOPY SURG CHOLECYSTECTOMY COLONOSCOPY PROCEDURE: HISTORICAL COLONOSCOPY; COMMENT: 08/24/20, 11/27/16, 04/2013, 2007 ESOPHAGOGASTRODUODENOSCOPY 10/24/2018 PROCEDURE: SD ESOPHAGOGASTRODUODENOSCOPY TRANSORAL DIAGNOSTIC ESOPHAGOGASTRODUODENOSCOPY 02/20/2016 PROCEDURE: SD ESOPHAGOGASTRODUODENOSCOPY TRANSORAL DIAGNOSTIC EYE SURGERY Right 1979 PROCEDURE: HISTORICAL EYE SURGERY; COMMENT: Right eye strabismus surgery for amblyopia GASTRIC BYPASS PROCEDURE: SD GASTRIC RSTCV W/BYP W/SM INT RCNSTJ LIMIT ABSRPJ OTHER SURGICAL HISTORY 03/10/2018 PROCEDURE: SD RPR PARAESOPH HIATAL HERNIA W/LAPT W/O MESH OTHER SURGICAL HISTORY 05/23/2017 PROCEDURE: SD ENDOSCOPY UPPER SMALL INTESTINE OTHER SURGICAL HISTORY 11/27/2016 PROCEDURE: SD ENDOSCOPY UPPER SMALL INTESTINE OTHER SURGICAL HISTORY 05/01/2012 PROCEDURE: SD EGD FLEXIBLE TRANSNASAL W/BIOPSY SINGLE/MULTIPLE OTHER SURGICAL HISTORY 2000 PROCEDURE: SD LAPS GSTR RSTCV PX W/BYP ANDREW-EN-Y LIMB <150 CM [Family History] [Family History] Problem Relation Name Age of Onset COPD Mother Colon cancer Mother Lung cancer Mother Hypertension Mother Other (Other: Kidney Disease) Mother Diabetes Father type 2 Other (Other: Congenital Heart Disease) Sister Bipolar disorder Sister Other (Other: Hepatitis) Sister Seizures Brother Colon cancer Maternal Grandmother Lung cancer Maternal Grandmother Hyperthyroidism Maternal Grandmother Coronary artery disease Maternal Grandfather Social History Tobacco Use Smoking status: Former Current packs/day: 0.50 Types: Cigarettes Smokeless tobacco: Not on file Substance Use Topics Alcohol use: Yes Drug use: Never Review of Systems Physical Exam ED Triage Vitals [07/03/25 0906] Temp Heart Rate Resp BP 36.6 ??C (97.9 ??F) (!) 120 25 (!) 119/107 SpO2 Temp Source Heart Rate Source Patient Position 97 % Oral Radial Sitting BP Location FiO2 (%) Left arm -- Physical Exam Vitals and nursing note reviewed. Constitutional: General: She is not in acute distress. Appearance: She is not ill-appearing, toxic-appearing or diaphoretic. Interventions: She is not intubated. HENT: Head: Normocephalic and atraumatic. Eyes: Extraocular Movements: Extraocular movements intact. Cardiovascular: Rate and Rhythm: Normal rate and regular rhythm. No extrasystoles are present. Pulses: Normal pulses. No decreased pulses. Heart sounds: Normal heart sounds. No murmur heard. No friction rub. No gallop. Pulmonary: Effort: Tachypnea present. No bradypnea, accessory muscle usage or respiratory distress. She is notintubated. Breath sounds: No stridor. Examination of the right-upper field reveals wheezing. Examination of the left-upper field reveals wheezing. Wheezing present. No decreased breath sounds, rhonchi or rales. Comments: Mildly increased pulmonary effort, tachypneic, lung sounds are tight however no stridor appreciated Chest: Chest wall: No mass, deformity or tenderness. Abdominal: Palpations: Abdomen is soft. Tenderness: There is no abdominal tenderness. Comments: Large abdominal pannus however no evidence of ascites Musculoskeletal: General: Normal range of motion. Right lower leg: No tenderness. Edema present. Left lower leg: No tenderness. Edema present. Skin: General: Skin is warm and dry. Capillary Refill: Capillary refill takes less than 2 seconds. Neurological: Mental Status: She is alert. ED Course & MDM ED Course as of 07/03/25 1331 Sat Jul 03, 2025 0937 ECG 12 lead Independent interpretation of ECG is normal sinus rhythm with ventricular rate of 85 bpm. Normal intervals. Machine reading is AV dual paced rhythm, however there appears to be no patient products. Suspect this is mechanical error and may be due to her bladder stimulator [SO] 0955 CBC and differential(!) Reviewed, no leukocytosis or anemia. [SO] 1001 D-dimer, quantitative Reviewed, < 500 [SO] 1009 Vascular US Duplex Lower Extremity Venous Bilateral Bilateral US negative for DVT [SO] 1025 Troponin I high sensitivity 34, will obtain repeat troponin. Patient remains without chest pain [SO] 1026 Lipase Nonelevated [SO] 1036 B-type natriuretic peptide BnP <2, do not suspect acute heart failure [SO] 1101 Comprehensive metabolic panel(!) Reviewed, significant for mild elevation that can be likely attributed to normal physiological variance/ nonfasting lab for hyperglycemia [SO] 1102 hCG, serum, qualitative Reviewed, negative for pregancy [SO] 1104 XR Chest 2 Views Limited secondary to body habitus, however no prominent consolidation that be suggestive of pneumonia, no evidence of pneumothorax. [SO] 1108 On reevaluation, patient with diffuse wheezing, saturating at 96%, will order duoneb and reevaluate [SO] 1125 CT Angio Chest wo and/or w Contrast CT chest angiography with no evidence of pulmonary embolus within the pulmonary arteries. Cardiac silhouette is enlarged however there is no pericardial fluid and no CT evidence of elevated right heart pressures. No thoracic aortic aneurysm or dissection. No pleural fluid or pneumothorax. There is a fairly circumscribed mass of 72 cm lower situated lesion in the right lobe. [SO] 1150 Respiratory virus panel molecular study Reviewed and negative [SO] 1235 Troponin I high sensitivity Reviewed, repeat troponin flat, less likely to be ACS in light of flat delta troponin and nonischemic ECG [SO] 1250 Reevaluated patient at this time, continues to saturate 97% on room air with no additional oxygen supplementation. Patient reports concern for inability to ambulate at home and reports exacerbation of her bipolar disorder with psychosis especially steroid induced psychosis whenever she is discharged home after receiving medications [SO] 1328 49-year-old female presenting due to shortness of breath, does have history of asthma/COPD. Has mild swelling of bilateral lower extremities, tight lungs on exam with scant wheezing after initial nebulizer. Satting well but tachypneic at rest. Patient has a history of steroid-induced psychosis. Patient does require steroids at this time based on her presentation and exam postbronchodilator therapy. Will give Solu-Medrol, IV mag, additional albuterol. Plan for admission for further management of asthma exacerbation [AM] ED Course User Index [AM] Jennifer Mendes MD [SO] COTY Smalls Clinical Impressions as of 07/03/25 1331 Shortness of breath Bilateral lower extremity edema Mild intermittent asthma with exacerbation Medical Decision Making This is a 49-year-old female with history of gastric bypass surgery, rectovaginal fistula s/p implantation of urinary electronic stimulator device, , anemia, arthritis, asthma, GERD, chronic leg swelling, obesity, DARRIUS, presenting today for evaluation of worsening shortness of breath over the past 3days. On physical exam she appears well however significant for tachypnea and tachycardia. No signs of overload including JVD or crackles. ProBNP and x-ray to evaluate- no signs of fluid overload. Differential diagnosis includes but is not limited to acute congestive heart failure, PE, DVT, acute viral respiratory illness, ACS, pneumonia, pneumothorax, obesity hypoventilation syndrome, COPD, asthma exacerbation. CXR enlarged cardiac silhouette however no obvious signs of pneumothorax, no pleural effusion, or pneumonia. D-dimer nonelevated at 230 however threshold for exclusion. Proceeded with CT chest and bilateral ultrasound to further evaluate, which was negative for pulmonary embolism or acute pulmonary or cardiac cause. Less likely to be ACS patient is asymptomatic without chest pain-ECG is nonischemic, pending troponin. Do not suspect pericardial tamponade CT chest without evidence of pericardial fluid. Do not suspect acute sepsis as patient is nontoxic appearing and afebrile. On reevaluation, patient has diffuse wheezing and continues to saturate 97% on room air. Ordered DuoNeb at this time. At this time patient's physical exam and reassuring laboratory workup most consistent with an acuteasthma exacerbation. Mild improvement in symptoms after first initial DuoNeb. However she reports continuance of shortness of breath. On reevaluation her lung sounds are tight, she is tachypneic however still saturating at 97% on room air. Will administer hour-long albuterol treatment as well as magnesium and IV methylprednisolone. She reports history of psychosis that is steroid-induced and exacerbated by her bipolar disorder. Patient ultimately not safe for discharge at this time and will be admission to inpatient team for observation for administration of medications in a controlled environment. Submitted by and Phone Extension: * Bobby Gray RN - 07/03/2025 9:04 AM EDT Pt comes in with c/o shortness of breath and swelling x 3 days; pt reports difficulty laying flat while trying to sleep as well. Pt denies chest pain, reports no known cardiac hx. Pt also reports 40lb weight gain in the last 4 months. * COTY Smalls - 07/03/2025 8:59 AM EDT HPI Chief Complaint Patient presents with Shortness of Breath HPI This is a 49-year-old female with history of gastric bypass surgery, rectovaginal fistula s/p implantation of urinary electronic stimulator device, anemia, arthritis, asthma, GERD, chronic leg swelling, obesity, DARRIUS, presenting today for evaluation of worsening shortness of breath over the past 3 days. Per at bedside he reports that the shortness of breath is happening more over the span of the length. Patient reports shortness of breath that is present nearly all the time, most notablywhen laying flat and sleeping. She reports that she uses a CPAP at nighttime and has been experiencing shortness of breath while using this as well. She has had episodes of waking up due to coughingfits. She also notes a weight gain of approximately 40 pounds since March. She denies any changes in her day-to-day life attributed to this weight gain. Notes that she has noticed increased swelling in her bilateral lower extremities. No hemoptysis. No history of malignancy. No recent surgery or malignancy. No recent prolonged travel. Denies any alcohol, smoking. No data recorded Patient History Medical History[1] Surgical History[2] Family History[3] Social History Tobacco Use Smoking status: Former Current packs/day: 0.50 Types: Cigarettes Smokeless tobacco: Not on file Substance Use Topics Alcohol use: Yes Drug use: Never Review of Systems Physical Exam ED Triage Vitals [07/03/25 0906] Temp Heart Rate Resp BP 36.6 ??C (97.9 ??F) (!) 120 25 (!) 119/107 SpO2 Temp Source Heart Rate Source Patient Position 97 % Oral Radial Sitting BP Location FiO2 (%) Left arm -- Physical Exam Vitals and nursing note reviewed. Constitutional: General: She is not in acute distress. Appearance: She is not ill-appearing, toxic-appearing or diaphoretic. Interventions: She is not intubated. HENT: Head: Normocephalic and atraumatic. Eyes: Extraocular Movements: Extraocular movements intact. Cardiovascular: Rate and Rhythm: Normal rate and regular rhythm. No extrasystoles are present. Pulses: Normal pulses. No decreased pulses. Heart sounds: Normal heart sounds. No murmur heard. No friction rub. No gallop. Pulmonary: Effort: Tachypnea present. No bradypnea, accessory muscle usage or respiratory distress. She is notintubated. Breath sounds: No stridor. Examination of the right-upper field reveals wheezing. Examination of the left-upper field reveals wheezing. Wheezing present. No decreased breath sounds, rhonchi or rales. Comments: Mildly increased pulmonary effort, tachypneic, lung sounds are tight however no stridor appreciated Chest: Chest wall: No mass, deformity or tenderness. Abdominal: Palpations: Abdomen is soft. Tenderness: There is no abdominal tenderness. Comments: Large abdominal pannus however no evidence of ascites Musculoskeletal: General: Normal range of motion. Right lower leg: No tenderness. Edema present. Left lower leg: No tenderness. Edema present. Skin: General: Skin is warm and dry. Capillary Refill: Capillary refill takes less than 2 seconds. Neurological: Mental Status: She is alert. ED Course & MDM ED Course as of 07/03/25 1331 Sat Jul 03, 2025 0937 ECG 12 lead Independent interpretation of ECG is normal sinus rhythm with ventricular rate of 85 bpm. Normal intervals. Machine reading is AV dual paced rhythm, however there appears to be no patient products. Suspect this is mechanical error and may be due to her bladder stimulator [SO] 0955 CBC and differential(!) Reviewed, no leukocytosis or anemia. [SO] 1001 D-dimer, quantitative Reviewed, < 500 [SO] 1009 Vascular US Duplex Lower Extremity Venous Bilateral Bilateral US negative for DVT [SO] 1025 Troponin I high sensitivity 34, will obtain repeat troponin. Patient remains without chest pain [SO] 1026 Lipase Nonelevated [SO] 1036 B-type natriuretic peptide BnP <2, do not suspect acute heart failure [SO] 1101 Comprehensive metabolic panel(!) Reviewed, significant for mild elevation that can be likely attributed to normal physiological variance/ nonfasting lab for hyperglycemia [SO] 1102 hCG, serum, qualitative Reviewed, negative for pregancy [SO] 1104 XR Chest 2 Views Limited secondary to body habitus, however no prominent consolidation that be suggestive of pneumonia, no evidence of pneumothorax. [SO] 1108 On reevaluation, patient with diffuse wheezing, saturating at 96%, will order duoneb and reevaluate [SO] 1125 CT Angio Chest wo and/or w Contrast CT chest angiography with no evidence of pulmonary embolus within the pulmonary arteries. Cardiac silhouette is enlarged however there is no pericardial fluid and no CT evidence of elevated right heart pressures. No thoracic aortic aneurysm or dissection. No pleural fluid or pneumothorax. There is a fairly circumscribed mass of 72 cm lower situated lesion in the right lobe. [SO] 1150 Respiratory virus panel molecular study Reviewed and negative [SO] 1235 Troponin I high sensitivity Reviewed, repeat troponin flat, less likely to be ACS in light of flat delta troponin and nonischemic ECG [SO] 1250 Reevaluated patient at this time, continues to saturate 97% on room air with no additional oxygen supplementation. Patient reports concern for inability to ambulate at home and reports exacerbation of her bipolar disorder with psychosis especially steroid induced psychosis whenever she is discharged home after receiving medications [SO] 1328 49-year-old female presenting due to shortness of breath, does have history of asthma/COPD. Has mild swelling of bilateral lower extremities, tight lungs on exam with scant wheezing after initial nebulizer. Satting well but tachypneic at rest. Patient has a history of steroid-induced psychosis. Patient does require steroids at this time based on her presentation and exam postbronchodilator therapy. Will give Solu-Medrol, IV mag, additional albuterol. Plan for admission for further management of asthma exacerbation [AM] ED Course User Index [AM] Jennifer Mendes MD [SO] COTY Smalls Clinical Impressions as of 07/03/25 1331 Shortness of breath Bilateral lower extremity edema Mild intermittent asthma with exacerbation Medical Decision Making This is a 49-year-old female with history of gastric bypass surgery, rectovaginal fistula s/p implantation of urinary electronic stimulator device, , anemia, arthritis, asthma, GERD, chronic leg swelling, obesity, DARRIUS, presenting today for evaluation of worsening shortness of breath over the past 3days. On physical exam she appears well however significant for tachypnea and tachycardia. No signs of overload including JVD or crackles. ProBNP and x-ray to evaluate- no signs of fluid overload. Differential diagnosis includes but is not limited to acute congestive heart failure, PE, DVT, acute viral respiratory illness, ACS, pneumonia, pneumothorax, obesity hypoventilation syndrome, COPD, asthma exacerbation. CXR enlarged cardiac silhouette however no obvious signs of pneumothorax, no pleural effusion, or pneumonia. D-dimer nonelevated at 230 however threshold for exclusion. Proceeded with CT chest and bilateral ultrasound to further evaluate, which was negative for pulmonary embolism or acute pulmonary or cardiac cause. Less likely to be ACS patient is asymptomatic without chest pain-ECG is nonischemic, pending troponin. Do not suspect pericardial tamponade CT chest without evidence of pericardial fluid. Do not suspect acute sepsis as patient is nontoxic appearing and afebrile. On reevaluation, patient has diffuse wheezing and continues to saturate 97% on room air. Ordered DuoNeb at this time. At this time patient's physical exam and reassuring laboratory workup most consistent with an acuteasthma exacerbation. Mild improvement in symptoms after first initial DuoNeb. However she reports continuance of shortness of breath. On reevaluation her lung sounds are tight, she is tachypneic however still saturating at 97% on room air. Will administer hour-long albuterol treatment as well as magnesium and IV methylprednisolone. She reports history of psychosis that is steroid-induced and exacerbated by her bipolar disorder. Patient ultimately not safe for discharge at this time and will be admission to inpatient team for observation for administration of medications in a controlled environment. Procedures COTY Smalls 07/03/25 1305 [1] Past Medical History: Diagnosis Date Acid reflux DX:Acid reflux Acute back pain DX:Acute back pain Anxiety DX:Anxiety Asthma exacerbation DX:Asthma exacerbation Asthma, moderate persistent, poorly-controlled DX:Asthma, moderate persistent, poorly-controlled Bloating DX:Bloating Cervical radiculopathy DX:Cervical radiculopathy Chest pain DX:Chest pain Chondromalacia patellae DX:Chondromalacia patellae COVID-19 DX:COVID-19 Depression DX:Depression Fatigue DX:Fatigue Flank pain DX:Flank pain Foot pain DX:Foot pain Hematuria DX:Hematuria Hiatal hernia DX:Hiatal hernia History of gastric bypass DX:History of gastric bypass Hyperglycemia DX:Hyperglycemia Hyperplastic adenomatous polyp of stomach DX:Hyperplastic adenomatous polyp of stomach Hypothyroidism DX:Hypothyroidism IFG (impaired fasting glucose) DX:IFG (impaired fasting glucose) Iron deficiency anemia DX:Iron deficiency anemia Knee pain DX:Knee pain Leg pain DX:Leg pain Leg swelling DX:Leg swelling Low back pain DX:Low back pain LUQ pain DX:LUQ pain Mood disorder ([facility] V24) DX:Mood disorder ([facility]) Morbid obesity with BMI of 50.0-59.9, adult ([facility] V24, [facility] V28) DX:Morbid obesity with BMI of 50.0-59.9, adult ([facility]) Nausea DX:Nausea Neuropathy DX:Neuropathy Non-cardiac chest pain DX:Non-cardiac chest pain Obstructive sleep apnea DX:Obstructive sleep apnea Otitis media of left ear DX:Otitis media of left ear Pneumonia DX:Pneumonia Rectovaginal fistula DX:Rectovaginal fistula Recurrent UTI DX:Recurrent UTI Seasonal allergic rhinitis DX:Seasonal allergic rhinitis Severe obesity ([facility] V24, [facility]/HCC V28) DX:Severe obesity (HCC) Thrombocytopenia (CMS/HCC V24) DX:Thrombocytopenia (HCC) Vaginal discharge DX:Vaginal discharge Weight gain following gastric bypass surgery DX:Weight gain following gastric bypass surgery [2] Past Surgical History: Procedure Laterality Date BLADDER SURGERY 2016 PROCEDURE: HISTORICAL BLADDER SURGERY; COMMENT: Implantation of electronic stimulator CHOLECYSTECTOMY 06/02/2010 PROCEDURE: SD LAPAROSCOPY SURG CHOLECYSTECTOMY COLONOSCOPY PROCEDURE: HISTORICAL COLONOSCOPY; COMMENT: 08/24/20, 11/27/16, 04/2013, 2007 ESOPHAGOGASTRODUODENOSCOPY 10/24/2018 PROCEDURE: SD ESOPHAGOGASTRODUODENOSCOPY TRANSORAL DIAGNOSTIC ESOPHAGOGASTRODUODENOSCOPY 02/20/2016 PROCEDURE: SD ESOPHAGOGASTRODUODENOSCOPY TRANSORAL DIAGNOSTIC EYE SURGERY Right 1979 PROCEDURE: HISTORICAL EYE SURGERY; COMMENT: Right eye strabismus surgery for amblyopia GASTRIC BYPASS PROCEDURE: SD GASTRIC RSTCV W/BYP W/SM INT RCNSTJ LIMIT ABSRPJ OTHER SURGICAL HISTORY 03/10/2018 PROCEDURE: SD RPR PARAESOPH HIATAL HERNIA W/LAPT W/O MESH OTHER SURGICAL HISTORY 05/23/2017 PROCEDURE: SD ENDOSCOPY UPPER SMALL INTESTINE OTHER SURGICAL HISTORY 11/27/2016 PROCEDURE: SD ENDOSCOPY UPPER SMALL INTESTINE OTHER SURGICAL HISTORY 05/01/2012 PROCEDURE: SD EGD FLEXIBLE TRANSNASAL W/BIOPSY SINGLE/MULTIPLE OTHER SURGICAL HISTORY 2000 PROCEDURE: SD LAPS GSTR RSTCV PX W/BYP ANDREW-EN-Y LIMB <150 CM [3] Family History Problem Relation Name Age of Onset COPD Mother Colon cancer Mother Lung cancer Mother Hypertension Mother Other (Other: Kidney Disease) Mother Diabetes Father type 2 Other (Other: Congenital Heart Disease) Sister Bipolar disorder Sister Other (Other: Hepatitis) Sister Seizures Brother Colon cancer Maternal Grandmother Lung cancer Maternal Grandmother Hyperthyroidism Maternal Grandmother Coronary artery disease Maternal Grandfather COTY Smalls 07/03/25 1332 Cosigned by Jennifer Mendes MD at 07/03/2025 2:45 PM EDT Associated attestation - Jennifer Mendes MD - 07/03/2025 2:45 PM EDT I performed a history and physical examination and discussed the patient management with preceding Advanced Practice Provider. I agree with the history and physical assessment and plan of care, with the following exceptions: None I was present for the following muhammad procedures: None Jennifer Mendes MD documented in this encounter H&P Notes * COTY Armstrong - 07/03/2025 1:42 PM EDT Images from the original note were not included. .. JONATHAN HISTORY AND PHYSICAL Please contact author [COTY Armstrong] via [employer]. Patient: Lisa Foss Admission Date/Time: 07/03/2025 9:08 AM : 1975 [49 y.o.] Patient's PCP: Caridad Louis MD Attending Provider: Jennifer Mendes MD CHIEF COMPLAINT Shortness of breath HISTORY OF PRESENT ILLNESS This is a 49-year-old female past medical history of morbid obesity status post gastric bypass, asthma, anemia, GERD, arthritis, bilateral lower extremity edema, DARRIUS on CPAP, 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 She reports associated dry cough which feels like she is aspirating but denies any fevers or chills. Shortness of breath is occurring with exertion. She reports 40 pound weight gain since March, does follow with weight management. She also reports increased lower extremity swelling. Denies history of heart failure. She denies any change in her diet or decrease in activity to account for her weight gain. She reports compliance with CPAP for her DARRIUS. She denies any episodes of chest pain. 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 She also reports recent diagnosis of gastroparesis. Upon arrival to the ED temperature 36.6 pulse 120 RR 25 BP 119/107 SpO2 97% on room air. Lab workupshowed sodium 142 potassium 4.1 chloride 111 glucose 120 creatinine 0.84 AST 17 ALT 22 ALP 137 lipase 15 BNP less than 2 high-sensitivity troponin 35, repeat 32. hCG negative WBC 7.4, H&H 11.8/38.6 platelet 201. D- dimer 230. Respiratory viral panel negative. Initial EKG in the ED suggested AV dual paced rhythm however she does not have pacemaker- Suspect this is due to her urinary electronic stimulator device. Bilateral venous duplex was negative for DVTs. Chest x-ray showed no definite acute pneumonia or edema with prominent cardiac silhouette. Chest CTA was negative for PE or acute pneumonia. In the ED she received 3 mL DuoNeb and she was subsequently admitted to the medical service for further observation and management. Review of Systems 12 point ROS negative aside from what is stated above. MEDICAL HISTORY Past Medical History Medical History[1] Past Surgical History Surgical History[2] Social History reports that she has quit smoking. Her smoking use included cigarettes. She does not have any smokeless tobacco history on file. She reports current alcohol use. She reports that she does not use drugs. Family History family history includes Bipolar disorder in her sister; COPD in her mother; Colon cancer in her maternal grandmother and mother; Coronary artery disease in her maternal grandfather; Diabetes in her father; Hypertension in her mother; Hyperthyroidism in her maternal grandmother; Lung cancer in her maternal grandmother and mother; Other: Congenital Heart Disease in her sister; Other: Hepatitis in her sister; Other: Kidney Disease in her mother; Seizures in her brother. Allergies is allergic to nitrofurantoin, nitrofurantoin monohyd/m-cryst, adhesive, nsaids (non-steroidal anti-inflammatory drug), and pollen extracts. Home Medications Medications Ordered Prior to Encounter[3] OBJECTIVE Vitals Visit Vitals BP (!) 129/93 (BP Location: Right arm, Patient Position: Sitting) Pulse 80 Temp 37.1 ??C (98.7 ??F) (Oral) Resp 20 Temp (24hrs), Av.8 ??C (98.3 ??F), Min:36.6 ??C (97.9 ??F), Max:37.1 ??C (98.7 ??F) Body mass index is 58.46 kg/m??. No results found for: PTWT , PTHT Physical Examination General Exam: Age-appropriate female, awake, cooperative, sitting in the chair at bedside in the [place] no acute distress. Skin Exam: Warm, dry and intact without diaphoresis. No rash noted. HEENT exam: Head appears atraumatic. No scleral icterus. Respiratory Exam: Diminished throughout all lung agarwal. No wheezing or crackles Cardiovascular Exam: Regular rate and rhythm. Gastrointestinal Exam: Abdomen is soft, nontender, and nondistended. Musculoskeletal Exam: Bilateral nonpitting lower extremity edema is appreciated. Neurological Exam: Alert and oriented x 3. No focal weakness, slurred speech or facial droop noted. Psychiatric: Stable mood and affect. LAB RESULTS (most recent) HEMATOLOGY Lab Results Component Value Date WBC 7.4 07/03/2025 HGB 11.8 07/03/2025 HCT 38.6 07/03/2025 MCV 85.6 07/03/2025 PLT 201 07/03/2025 CHEMISTRY Lab Results Component Value Date GLUCOSE 120 (H) 07/03/2025 NA 142 07/03/2025 K 4.1 07/03/2025 CO2 26 07/03/2025 CL 111 (H) 07/03/2025 BUN 18 07/03/2025 CREATININE 0.84 07/03/2025 EGFR 85 07/03/2025 CALCIUM 8.6 07/03/2025 MG 2.3 07/03/2025 ANIONGAP 5 07/03/[address] Angio Chest wo and/or w Contrast Final Result No pulmonary embolus demonstrated. No acute pneumonia. -------- FINAL REPORT -------- Dictated By: Lion Lee Dictated Date: 07/03/2025 11:08 ET Assigned Physician: Lion Lee Reviewed and Electronically Signed By: Lion Lee Signed Date: 07/03/2025 11:16 ET Workstation ID: [id number] Transcribed By: Self Edit Transcribed Date: 07/03/2025 11:08 ET XR Chest 2 Views Final Result Limited study. No definite acute pneumonia or edema. -------- FINAL REPORT -------- Dictated By: Lion Lee Dictated Date: 07/03/2025 10:49 ET Assigned Physician: Lion Lee Reviewed and Electronically Signed By: Lion Lee Signed Date: 07/03/2025 10:50 ET Workstation ID: [id number] Transcribed By: Self Edit Transcribed Date: 07/03/2025 10:49 ET Vascular US Duplex Lower Extremity Venous Bilateral Final Result No deep venous thrombosis demonstrated. -------- FINAL REPORT -------- Dictated By: Lion Lee Dictated Date: 07/03/2025 10:09 ET Assigned Physician: Lion Lee Reviewed and Electronically Signed By: Lion Lee Signed Date: 07/03/2025 10:11 ET Workstation ID: [id number] Transcribed By: Self Edit Transcribed Date: 07/03/2025 10:09 ET ASSESSMENT & PLAN 49-year-old female past medical history morbid obesity status post gastric bypass, asthma, anemia, GERD, arthritis, bilateral lower extremity edema, DARRIUS on CPAP, rectovaginal fistula status post urinary electronic stimulator device presenting to the ED due to shortness of breath. Chest CTA in the ED was negative for PE or pneumonia. BNP WNL along with troponins. She was tachypneic in the ED and has a history of steroid-induced psychosis with steroids and therefore admission requested for further observation and management of her dyspnea on exertion/suspected asthma exacerbation. Dyspnea on exertion Suspected OHS Dyspnea may be due to some volume overload versus acute asthma exacerbation versus restrictive lungdisease in the setting of suspected obesity hypoventilation syndrome vs chronic aspiration As above CTA negative for PE/pneumonia. RVP negative --DuoNeb 4 times daily --IV Lasix 20 mg BID --Outpatient f/u with pulmonology --INDUSTRIAL TECHNICIAN eval due to pt feeling as though she may be aspirating w/ recent dx of gastroparesis Cardiomegaly BNP WNL however can be falsely low in obese patients --Outpatient echocardiogram recommended Mild acute asthma exacerbation With history of steroid-induced psychosis Had some wheezing per ED provider, resolved after nebulizer --Hold IV steroids for now --DuoNeb 4 times daily Bilateral lower extremity edema Venous duplex negative for DVTs --Lasix 20 mg IV twice daily DARRIUS --CPAP bedtime Morbid obesity BMI 58 Status post gastric bypass Reports 40 pound weight gain since March Follows with weight management GERD --Pepcid 20 mg twice daily Anemia H&H stable 11.8/38.6 Admission checklist [x] Code status: Full Code - Default [x] VTE Prophylaxis: Lovenox [x] Diet order on admission: Dietary Orders (From admission, onward) Start Ordered 07/03/25 1330 Adult diet [facility]; Cardiac; Sodium 2 gm Restriction Diet effective now Question Answer Comment Location [facility] Diet Type (req) Cardiac Diet Type (cardiac) Sodium 2 gm Restriction 07/03/25 1331 [x] Medication reconciliation Health Care proxy with Phone number Neva Hannah [phone] Total time spent performing chart review, assessing the patient, documenting, work order detailer, discussing with attending MD/bedside RN/ICC, arranging care and performing a high level of medical decision making approximately 60 minutes. Case discussed with Dr. Pollard [1] Past Medical History: Diagnosis Date Acid reflux DX:Acid reflux Acute back pain DX:Acute back pain Anxiety DX:Anxiety Asthma exacerbation DX:Asthma exacerbation Asthma, moderate persistent, poorly-controlled DX:Asthma, moderate persistent, poorly-controlled Bloating DX:Bloating Cervical radiculopathy DX:Cervical radiculopathy Chest pain DX:Chest pain Chondromalacia patellae DX:Chondromalacia patellae COVID-19 DX:COVID-19 Depression DX:Depression Fatigue DX:Fatigue Flank pain DX:Flank pain Foot pain DX:Foot pain Hematuria DX:Hematuria Hiatal hernia DX:Hiatal hernia History of gastric bypass DX:History of gastric bypass Hyperglycemia DX:Hyperglycemia Hyperplastic adenomatous polyp of stomach DX:Hyperplastic adenomatous polyp of stomach Hypothyroidism DX:Hypothyroidism IFG (impaired fasting glucose) DX:IFG (impaired fasting glucose) Iron deficiency anemia DX:Iron deficiency anemia Knee pain DX:Knee pain Leg pain DX:Leg pain Leg swelling DX:Leg swelling Low back pain DX:Low back pain LUQ pain DX:LUQ pain Mood disorder ([facility] V24) DX:Mood disorder (HCC) Morbid obesity with BMI of 50.0-59.9, adult (CMS/HCC V24, CMS/HCC V28) DX:Morbid obesity with BMI of 50.0-59.9, adult ([facility]) Nausea DX:Nausea Neuropathy DX:Neuropathy Non-cardiac chest pain DX:Non-cardiac chest pain Obstructive sleep apnea DX:Obstructive sleep apnea Otitis media of left ear DX:Otitis media of left ear Pneumonia DX:Pneumonia Rectovaginal fistula DX:Rectovaginal fistula Recurrent UTI DX:Recurrent UTI Seasonal allergic rhinitis DX:Seasonal allergic rhinitis Severe obesity (CMS/HCC V24, CMS/HCC V28) DX:Severe obesity (HCC) Thrombocytopenia (CMS/HCC V24) DX:Thrombocytopenia (HCC) Vaginal discharge DX:Vaginal discharge Weight gain following gastric bypass surgery DX:Weight gain following gastric bypass surgery [2] Past Surgical History: Procedure Laterality Date BLADDER SURGERY 2016 PROCEDURE: HISTORICAL BLADDER SURGERY; COMMENT: Implantation of electronic stimulator CHOLECYSTECTOMY 06/02/2010 PROCEDURE: SD LAPAROSCOPY SURG CHOLECYSTECTOMY COLONOSCOPY PROCEDURE: HISTORICAL COLONOSCOPY; COMMENT: 08/24/20, 11/27/16, 04/2013, 2007 ESOPHAGOGASTRODUODENOSCOPY 10/24/2018 PROCEDURE: SD ESOPHAGOGASTRODUODENOSCOPY TRANSORAL DIAGNOSTIC ESOPHAGOGASTRODUODENOSCOPY 02/20/2016 PROCEDURE: SD ESOPHAGOGASTRODUODENOSCOPY TRANSORAL DIAGNOSTIC EYE SURGERY Right 1980 PROCEDURE: HISTORICAL EYE SURGERY; COMMENT: Right eye strabismus surgery for amblyopia GASTRIC BYPASS PROCEDURE: SD GASTRIC RSTCV W/BYP W/SM INT RCNSTJ LIMIT ABSRPJ OTHER SURGICAL HISTORY 03/10/2018 PROCEDURE: SD RPR PARAESOPH HIATAL HERNIA W/LAPT W/O MESH OTHER SURGICAL HISTORY 05/23/2017 PROCEDURE: SD ENDOSCOPY UPPER SMALL INTESTINE OTHER SURGICAL HISTORY 11/27/2016 PROCEDURE: SD ENDOSCOPY UPPER SMALL INTESTINE OTHER SURGICAL HISTORY 05/01/2012 PROCEDURE: SD EGD FLEXIBLE TRANSNASAL W/BIOPSY SINGLE/MULTIPLE OTHER SURGICAL HISTORY 2000 PROCEDURE: SD LAPS GSTR RSTCV PX W/BYP ANDREW-EN-Y LIMB <150 CM [3] No current facility-administered medications on file prior to encounter. No current outpatient medications on file prior to encounter. Cosigned by Brie Pollard MD at 07/03/2025 2:46 PM EDT Associated attestation - Brie Pollard MD - 07/03/2025 2:46 PM EDT This is a split/shared visit with COTY Armstrong. I personally performed the medical decision making (MDM) for the care of this patient on 07/03/25 as documented below I have seen and examined this patient and I have personally reviewed and interpreted her medical records, vital signs, labs and radiology data. I discussed case with Cynthia and I agree with physical exam assessment plan as outlined in her note. This is a morbidly obese female with body mass index of 58.46 kg/m?? with history of gastric bypasssurgery obstructive sleep apnea CPAP currently presenting with worsening shortness of breath as well as cough but also 40 pound weight gain. I have reviewed and interpreted her chest x-ray which shows restricted lungs and morbidly obese habitus but no pulmonary vascular congestion or infiltrates. The patient will be placed in observation and given a trial of IV Lasix with strict inputs and outputs and follow-up of creatinine as well as potassium. No indication for antibiotics. DuoNeb updrafts as needed. No indication for steroids. Chronic management as below Brie Pollard MD 07/03/25 2:44 PM EDT documented in this encounter Plan of Treatment Scheduled Orders Name Type Priority Associated Diagnoses Order Schedule Transthoracic echocardiogram (TTE) complete with PRN contrast, bubble, strain, and 3D order panel Echocardiography Routine Shortness of breath 1 Occurrences starting 07/04/2025 until 07/04/2026 documented as of this encounter Procedures Procedure Name Priority Date/Time Associated Diagnosis Comments ECG ANNOTATED 07/05/2025 EXTRA TUBES Routine 07/04/2025 5:42 AM EST LAVENDER - EDTA Routine 07/04/2025 5:42 AM EST BASIC METABOLIC PANEL Routine 07/04/2025 5:42 AM EST OXYGEN THERAPY, ADULT Routine 07/04/2025 1:42 AM EDT OXYGEN THERAPY, ADULT Routine 07/04/2025 1:42 AM EDT URINALYSIS WITH REFLEX MICROSCOPIC AND CULTURE STAT 07/03/2025 4:40 PM EDT GOLDBERG URINE CULTURE TUBE STAT 07/03/2025 4:40 PM EDT URINALYSIS WITH REFLEX MICROSCOPIC AND CULTURE STAT 07/03/2025 4:40 PM EDT CULTURE URINE STAT 07/03/2025 4:40 PM EDT ECG 12-LEAD Routine 07/03/2025 3:48 PM EDT CPAP NIV Routine 07/03/2025 2:21 PM EDT TROPONIN I HIGH SENSITIVITY STAT 07/03/2025 11:[address] ANGIO CHEST WO AND/OR W CONTRAST STAT 07/03/2025 11:01 AM EDT Shortness of breath RESPIRATORY VIRUS PANEL MOLECULAR STUDY STAT 07/03/2025 10:33 AM EDT XR CHEST 2 VIEWS STAT 07/03/2025 10:1 2 AM EDT VAS US DUPLEX LOWER EXT VENOUS BILAT STAT 07/03/2025 10:10 AM EDT Bilateral lower extremity edema TROPONIN I HIGH SENSITIVITY Timed 07/03/2025 9:41 AM EDT TROPONIN I HIGH SENSITIVITY Timed 07/03/2025 9:41 AM EDT CBC WITH AUTO DIFFERENTIAL STAT 07/03/2025 9:41 AM EDT D-DIMER STAT 07/03/2025 9:41 AM EDT CBC AND DIFFERENTIAL STAT 07/03/2025 9:41 AM EDT HCG, SERUM, QUALITATIVE STAT Add-on 07/03/2025 9:41 AM EDT B-TYPE NATRIURETIC PEPTIDE STAT 07/03/2025 9:41 AM EDT MAGNESIUM STAT 07/03/2025 9:41 AM EDT LIPASE STAT 07/03/2025 9:41 AM EDT COMPREHENSIVE METABOLIC PANEL STAT 07/03/2025 9:41 AM EDT ECG 12-LEAD STAT 07/03/2025 9:21 AM EDT documented in this encounter Results * ECG-Annotated (07/05/2025) us Provider Onbase ECG ORDERABLES Final Result * Lavender tube (07/04/2025 5:42 AM EST) [facility] Extra Tube Hold for add-ons. 07/04/2025 8:01 AM EST [facility] Comment:Auto resulted. Blood Venous blood specimen / Unknown Venipuncture / Unknown 07/04/2025 5:42 AM EST 07/04/2025 6:49 AM EST Marimar Moncada MD LAB BLOOD ORDERABLES Final Resul t [facility] [address] [place] [address], [place] [phone] * (ABNORMAL) Basic metabolic panel (07/04/2025 5:42 AM EST) [facility] Sodium 140 133 - 145 mmol/L LAB CHEMISTRY METHOD 07/04/2025 7:33 AM [facility] Potassium 4.4 3.5 - 5.5 mmol/L LAB CHEMISTRY METHOD 07/04/2025 7:33 AM [facility] Chloride 106 96 - 110 mmol/L LAB CHEMISTRY METHOD 07/04/2025 7:33 AM [facility] CO2 28 21 - 32 mmol/L LAB CHEMISTRY METHOD 07/04/2025 7:33 AM [facility] Anion Gap 6 3 - 11 LAB CHEMISTRY METHOD 07/04/2025 7:33 AM [facility] Glucose 106(H) 70 - 100 mg/dL LAB CHEMISTRY METHOD 07/04/2025 7:33 AM EST [facility] BUN 14 5 - 25 mg/dL LAB CHEMISTRY METHOD 07/04/2025 7:33 AM [facility] Creatinine 0.76 0.50 - 1.10 mg/dL LAB CHEMISTRY METHOD 07/04/2025 7:33 AM [facility] eGFR 96 >=60 mL/min/1. 73m2 LAB CHEMISTRY METHOD 07/04/2025 7:33 AM [facility] Comment:Calculation based on the Chronic Kidney Disease Epidemiology Collaboration (CKD-EPI) equation refit without adjustment for race. BUN/Creatinine Ratio 18.4 LAB CHEMISTRY METHOD 07/04/2025 7:33 AM [facility] Calcium 8.9 8.5 - 10.5 mg/dL LAB CHEMISTRY METHOD 07/04/2025 7:33 AM [facility] Blood Venous blood specimen / Unknown Venipuncture / Unknown 07/04/2025 5:42 AM EST 07/04/2025 6:47 AM EST us Cynthia ANSARI LAB BLOOD ORDERABLES Final Result [facility] [address] [place] [address], [place] [phone] * (ABNORMAL) Culture urine (07/03/2025 4:40 PM EDT) Culture, Urine >=100,000 CFU/mL Escherichia coli(A) SOTO 07/05/2025 11:25 AM [facility] Comment: This is an edited result. Previous organism was Gram negative bacilli on 07/04/2025 at 1248 EST. Urine Urine specimen obtained by clean catch procedure / Unknown Non-blood Collection / Unknown 07/03/2025 4:40 PM EDT 07/03/2025 5:15 PM EDT Narrative [facility] - 07/05/2025 11:25 AM EST Additional colony types present in insignificant amounts. Organism Antibiotic Method Susceptibility Escherichia coli Amoxicillin/Clavulanate SOTO 4 ug/ml: Susceptible Escherichia coli Ampicillin/Sulbactam SOTO <=2 ug/ml: Susceptible Escherichia coli Piperacillin/Tazobactam SOTO <=4 ug/ml: Susceptible Escherichia coli Cefazolin (Urine) SOTO <=1 ug/ml: Susceptible Escherichia coli Cefoxitin SOTO <=4 ug/ml: Susceptible Escherichia coli Ceftazidime SOTO <=0.5 ug/ml: Susceptible Escherichia coli Ceftriaxone SOTO <=0.25 ug/ml: Susceptible Escherichia coli Cefepime SOTO <=0.12 ug/ml: Susceptible Escherichia coli Meropenem SOTO <=0.25 ug/ml: Susceptible Escherichia coli Amikacin SOTO 4 ug/ml: Susceptible Escherichia coli Gentamicin SOTO <=1 ug/ml: Susceptible Escherichia coli Ciprofloxacin SOTO >=4 ug/ml: Resistant Escherichia coli Levofloxacin SOTO >=8 ug/ml: Resistant Escherichia coli Nitrofurantoin SOTO <=16 ug/ml: Susceptible Escherichia coli Trimethoprim/Sulfamethoxazole SOTO <=20 ug/ml: Susceptible Anisa ANSARI LAB MICROBIOLOGY - GENERAL O RDERABLES Final Result Performing Organization Address City/[facility]/ZIP Co de Phone Number [facility] [address] [place] [address], * Goldberg urine culture tube (07/03/2025 4:40 PM EDT) Extra Tube Hold for add-ons. 07/03/2025 7:01 PM EDT [facility] Comment:Auto resulted. Urine Urine specimen obtained by clean catch procedure / Unknown Non-blood Collection / Unknown 07/03/2025 4:40 PM EDT 07/03/2025 5:05 PM EDT Anisa ANSARI LAB URINE ORDERABLES Final R esult Performing Organization Address [facility]/ZIP Co de Phone Number [facility] [address] [place] [address], [place] [phone] * (ABNORMAL) Urinalysis with reflex microscopic and culture (07/03/2025 4:40 PM EDT) Specific [place] Urine 1.018 1.003 - 1.030 LAB URINALYSIS - AUTOMATED METHOD 07/03/2025 5:15 PM [facility] pH, Urine 6.0 5.0 - 8.0 pH LAB URINALYSIS - AUTOMATED METHOD 07/03/2025 5:15 PM [facility] Leukocytes, Urine Small(A) Negative LAB URINALYSIS - AUTOMATED METHOD 07/03/2025 5:15 PM [facility] Nitrite, Urine Negative Negative LAB URINALYSIS - AUTOMATED METHOD 07/03/2025 5:15 PM [facility] Protein, Urine Negative <=Trace mg/dL LAB URINALYSIS - AUTOMATED METHOD 07/03/2025 5:15 PM [facility] Glucose, Urine Negative Negative mg/dL LAB URINALYSIS - AUTOMATED METHOD 07/03/2025 5:15 PM [facility] Ketones, Urine Negative Negative mg/dL LAB URINALYSIS - AUTOMATED METHOD 07/03/2025 5:15 PM [facility] Urobilinogen, Urine 0.2 0.2 - 1.0 mg/dL LAB URINALYSIS - AUTOMATED METHOD 07/03/2025 5:15 PM [facility] Bilirubin, Urine Negative Negative LAB URINALYSIS - AUTOMATED METHOD 07/03/2025 5:15 PM [facility] Blood, Urine Negative Negative LAB URINALYSIS - AUTOMATED METHOD 07/03/2025 5:15 PM [facility] RBC, Urine 9.5(H) 0 - 4 /HPF LAB URINALYSIS - AUTOMATED METHOD 07/03/2025 5:15 PM [facility] WBC, Urine 3.1 0 - 4 /HPF LAB URINALYSIS - AUTOMATED METHOD 07/03/2025 5:15 PM EDT [facility] Squamous Epithelial, Urine 53 0 - 60 /LPF LAB URINALYSIS - AUTOMATED METHOD 07/03/2025 5:15 PM EDT [facility] Bacteria, Urine Few(A) Negative /HPF LAB URINALYSIS - AUTOMATED METHOD 07/03/2025 5:15 PM EDT [facility] Hyaline Casts, Urine 0.8 0 - 3 /LPF LAB URINALYSIS - AUTOMATED METHOD 07/03/2025 5:15 PM EDT [facility] Urine Urine specimen obtained by clean catch procedure / Unknown Non-blood Collection / Unknown 07/03/2025 4:40 PM EDT 07/03/2025 5:05 PM EDT Anisa ANSARI LAB URINE ORDERABLES Final R esult [facility] [address] [place] [address], [place] [phone] * ECG 12 lead (07/03/2025 3:48 PM EDT) Ventricular Rate ECG 91 BPM GEMUSE Atrial Rate 91 BPM GEMUSE P-R Interval 178 ms GEMUSE QRS Duration 92 ms GEMUSE Q-T Interval 362 ms GEMUSE QTc 445 ms GEMUSE P Wave [place] 42 degrees GEMUSE R [place] -20 degrees GEMUSE T [place] 9 degrees GEMUSE ECG Interpretation Normal sinus rhythm Voltage criteria for left ventricular hypertrophy Abnormal ECG When compared with ECG of 03-JUL-2025 09:21, (unconfirmed) Poor data quality in current ECG precludes serial comparison Confirmed by Tigre SANDERS JOHN ([id number]) on 07/04/2025 4:35:00 PM GEMUSE 07/03/2025 3:48 PM EDT 07/04/2025 4:35 PM EST Cynthia ANSARI ECG ORDERABLES Final Resul t Performing Organization Address [facility] de Phone Number GEMUSE * Troponin I high sensitivity (07/03/2025 11:12 AM EDT) High Sensitivity Troponin I 32 <=54 ng/L LAB CHEMISTRY METHOD 07/03/2025 12:31 PM EDT [facility] Blood Venous blood specimen / Unknown Venipuncture / Unknown 07/03/2025 11:12 AM EDT 07/03/2025 11:56 AM EDT Narrative [facility] - 07/03/2025 12:31 PM EDT High levels of biotin in samples may falsely decrease hsTroponin values. Use caution when interpreting hsTroponin results in patients taking biotin who exhibit renal impairment (eGFR <60) or in patients taking more than 20 mg/day of biotin. Anisa ANSARI LAB BLOOD ORDERABLES Final R esult Performing Organization Address [facility] Co de Phone Number [facility] [address] [place] [address], [place] [phone] * CT Angio Chest wo and/or w Contrast (07/03/2025 11:01 AM EDT) Anatomical Region Laterality Modality Body Computed Tomogra phy 07/03/2025 11:0 8 AM EDT Impressions 07/03/2025 11:16 AM EDT No pulmonary embolus demonstrated. No acute pneumonia. -------- FINAL REPORT -------- Dictated By: Lion Lee Dictated Date: 07/03/2025 11:08 ET Assigned Physician: Lion Lee Reviewed and Electronically Signed By: Lion Lee Signed Date: 07/03/2025 11:16 ET Workstation ID: [id number] Transcribed By: Self Edit Transcribed Date: 07/03/2025 11:08 ET Narrative 07/03/2025 11:16 AM EDT EXAMINATION: CTA CHEST WITH CONTRAST CLINICAL INFORMATION: Clinical suspicion of pulmonary embolus. COMPARISON: None TECHNIQUE: CT angiography using pulmonary embolus timing Multidetector CT. Examination of the chest. Examination of the chest following the IV administration of nonionic contrast. Reformatting in the coronal and sagittal planes. DLP: 1580 mGy-cm Dose optimization was performed including the use of low-dose iterative reconstruction technique with automatic exposure control based on patient size. Type of contrast: ISOVUE 370 Volume of IV contrast: 155 mL Volume of contrast discarded: 0 mL FINDINGS: QUALITY: Adequate PULMONARY ARTERIES: No pulmonary embolus demonstrated LUNG: No suspicious abnormality of the trachea or mainstem bronchi. Expiratory result. No large area of pneumonia. Hypoinflation. I doubt alveolar edema. MEDIASTINUM: There are no enlarged mediastinal or hilar lymph nodes. No suspicious abdominal evaluate the esophagus CARDIAC: The heart appears enlarged but there is no pericardial fluid. There is no CT evidence of elevated right heart pressures. CORONARY CALCIFICATION: None VASCULAR: No thoracic aortic aneurysm or dissection. The central pulmonary arteries are prominent. PLEURAL: There is no pleural fluid or pneumothorax AXILLA/CHEST WALL: There are no enlarged axillary lymph nodes. No chest wall mass demonstrated MUSCULOSKELETAL: No focal bony lesion. Suspect anomalies of the upper right ribs VISUALIZED UPPER ABDOMEN: Reveals bariatric surgery. Fatty change in the liver. Fairly circumscribed nonspecific 2 cm low attenuating lesion in the right lobe. There is no reflux of contrast into the IVC or hepatic veins. Procedure Note Lion Lee MD - 07/03/2025 EXAMINATION: CTA CHEST WITH CONTRAST CLINICAL INFORMATION: Clinical suspicion of pulmonary embolus. COMPARISON: None TECHNIQUE: CT angiography using pulmonary embolus timing Multidetector CT. Examination of the chest. Examination of the chest following the IV administration of nonioniccontrast. Reformatting in the coronal and sagittal planes. DLP: 1580 mGy-cm Dose optimization was performed including the use of low-dose iterativereconstruction technique with automatic exposure control based on patientsize. Type of contrast: ISOVUE 370 Volume of IV contrast: 155 mL Volume of contrast discarded: 0 mL FINDINGS: QUALITY: Adequate PULMONARY ARTERIES: No pulmonary embolus demonstrated LUNG: No suspicious abnormality of the trachea or mainstem bronchi. Expiratory result. No large area of pneumonia. Hypoinflation. I doubt alveolar edema. MEDIASTINUM: There are no enlarged mediastinal or hilar lymph nodes. Nosuspicious abdominal evaluate the esophagus CARDIAC: The heart appears enlarged but there is no pericardial fluid. There is no CT evidence of elevated right heart pressures. CORONARY CALCIFICATION: None VASCULAR: No thoracic aortic aneurysm or dissection. The central pulmonaryarteries are prominent. PLEURAL: There is no pleural fluid or pneumothorax AXILLA/CHEST WALL: There are no enlarged axillary lymph nodes. No chestwall mass demonstrated MUSCULOSKELETAL: No focal bony lesion. Suspect anomalies of the upperright ribs VISUALIZED UPPER ABDOMEN: Reveals bariatric surgery. Fatty change in theliver. Fairly circumscribed nonspecific 2 cm low attenuating lesion in theright lobe. There is no reflux of contrast into the IVC or hepaticveins. IMPRESSION: No pulmonary embolus demonstrated. No acute pneumonia. -------- FINAL REPORT -------- Dictated By: Lion Lee Dictated Date: 07/03/2025 11:08 ET Assigned Physician: Lion Lee Reviewed and Electronically Signed By: Lion Lee Signed Date: 07/03/2025 11:16 ET Workstation ID: [id number] Transcribed By: Self Edit Transcribed Date: 07/03/2025 11:08 ET Anisa ANSARI IMG CT PROCEDURES Final Resu lt * Respiratory virus panel molecular study (07/03/2025 10:33 AM EDT) Adenovirus Detection by PCR Not Detected Not Detected LAB MICROBIOLOGY METHOD 07/03/2025 11:44 AM EDT [facility] Influenza A PCR Not Detected Not Detected LAB MICROBIOLOGY METHOD 07/03/2025 11:44 AM EDT [facility] Influenza B PCR Not Detected Not Detected LAB MICROBIOLOGY METHOD 07/03/2025 11:44 AM EDT [facility] Coronavirus 229E Not Detected Not Detected LAB MICROBIOLOGY METHOD 07/03/2025 11:44 AM EDT [facility] Coronavirus HKU1 Not Detected Not Detected LAB MICROBIOLOGY METHOD 07/03/2025 11:44 AM EDT [facility] Coronavirus OC43 Not Detected Not Detected LAB MICROBIOLOGY METHOD 07/03/2025 11:44 AM EDT [facility] Coronavirus NL63 Not Detected Not Detected LAB MICROBIOLOGY METHOD 07/03/2025 11:44 AM EDT [facility] Parainfluenza Virus 1 Not Detected Not Detected LAB MICROBIOLOGY METHOD 07/03/2025 11:44 AM EDT [facility] Parainfluenza Virus 2 Not Detected Not Detected LAB MICROBIOLOGY METHOD 07/03/2025 11:44 AM EDT [facility] Parainfluenza Virus 3 Not Detected Not Detected LAB MICROBIOLOGY METHOD 07/03/2025 11:44 AM EDT [facility] Parainfluenza Virus 4 Not Detected Not Detected LAB MICROBIOLOGY METHOD 07/03/2025 11:44 AM EDT [facility] RSV PCR Not Detected Not Detected LAB MICROBIOLOGY METHOD 07/03/2025 11:44 AM EDT [facility] Human Metapneumovirus A and B Not Detected Not Detected LAB MICROBIOLOGY METHOD 07/03/2025 11:44 AM EDT [facility] Rhinovirus/Entero virus Not Detected Not Detected LAB MICROBIOLOGY METHOD 07/03/2025 11:44 AM EDT [facility] Bordetella pertussis Not Detected Not Detected LAB MICROBIOLOGY METHOD 07/03/2025 11:44 AM EDT [facility] Bordetella parapertussis Not Detected Not Detected LAB MICROBIOLOGY METHOD 07/03/2025 11:44 AM EDT [facility] Mycoplasma pneumo by PCR Not Detected Not Detected LAB MICROBIOLOGY METHOD 07/03/2025 11:44 AM EDT [facility] Chlamydia pneumoniae Not Detected Not Detected LAB MICROBIOLOGY METHOD 07/03/2025 11:44 AM EDT [facility] SARS COV-2 Not Detected Not Detected LAB MICROBIOLOGY METHOD 07/03/2025 11:44 AM EDT [facility] Swab Both anterior nares / Unknown Non-blood Collection / Unknown 07/03/2025 10:33 AM EDT 07/03/2025 10:54 AM EDT Narrative [facility] - 07/03/2025 11:44 AM EDT Testing was performed using the [employer] Respiratory Pathogen PCR Assay. All results must be correlated with the clinical findings. Results should not be used as the sole basis for diagnosis. False Negative results may occur from the presence of sequence variants in the region targeted by the assay or the presence of inhibitors. Results may be affected by concurrent antiviral/antimicrobial therapy or levels of organisms that are below the limit of detection. us Anisa ANSARI LAB MICROBIOLOGY - GENERAL O RDERABLES Final Result [facility] ([facility]) [facility] [address] [place] [address], * XR Chest 2 Views (07/03/2025 10:12 AM EDT) Anatomical Region Laterality Modality Body Radiographic Kelsey ging 07/03/2025 10:4 9 AM EDT Impressions 07/03/2025 10:50 AM EDT Limited study. No definite acute pneumonia or edema. -------- FINAL REPORT -------- Dictated By: Lion Lee Dictated Date: 07/03/2025 10:49 ET Assigned Physician: Lion Lee Reviewed and Electronically Signed By: Lion Lee Signed Date: 07/03/2025 10:50 ET Workstation ID: [id number] Transcribed By: Self Edit Transcribed Date: 07/03/2025 10:49 ET Narrative 07/03/2025 10:50 AM EDT EXAMINATION: CHEST CLINICAL INFORMATION: Chest pain COMPARISON: Frontal view 07/11/23 TECHNIQUE: Sitting frontal and lateral views of the chest FINDINGS: Habitus limits the exam. Devices overlie the patient. Prominent cardiac silhouette which is accentuated by positioning. No large hilar mass. No alveolar edema. No lobar segmental consolidation. No significant pleural fluid or pneumothorax. I suspect a developmental abnormality in the upper right ribs which is likely unchanged. Procedure Note Jesus, Lion F, MD - 07/03/2025 EXAMINATION: CHEST CLINICAL INFORMATION: Chest pain COMPARISON: Frontal view 07/11/23 TECHNIQUE: Sitting frontal and lateral views of the chest FINDINGS: Habitus limits the exam. Devices overlie the patient. Prominent cardiac silhouette which is accentuated by positioning. No largehilar mass. No alveolar edema. No lobar segmental consolidation. No significant pleural fluid or pneumothorax. I suspect a developmental abnormality in the upper right ribs which islikely unchanged. IMPRESSION: Limited study. No definite acute pneumonia or edema. -------- FINAL REPORT -------- Dictated By: Lion Lee Dictated Date: 07/03/2025 10:49 ET Assigned Physician: Lion Lee Reviewed and Electronically Signed By: Lion Lee Signed Date: 07/03/2025 10:50 ET Workstation ID: [id number] Transcribed By: Self Edit Transcribed Date: 07/03/2025 10:49 ET us Jennifer Mendes MD IMG XR PROCEDURES Final Result * Vascular US Duplex Lower Extremity Venous Bilateral (07/03/2025 10:10 AM EDT) Anatomical Region Laterality Modality Vascular, Abdomen Ultrasound 07/03/2025 10:0 9 AM EDT Impressions 07/03/2025 10:11 AM EDT No deep venous thrombosis demonstrated. -------- FINAL REPORT -------- Dictated By: Loin Lee Dictated Date: 07/03/2025 10:09 ET Assigned Physician: Lion Lee Reviewed and Electronically Signed By: Lion Lee Signed Date: 07/03/2025 10:11 ET Workstation ID: [id number] Transcribed By: Self Edit Transcribed Date: 07/03/2025 10:09 ET Narrative 07/03/2025 10:11 AM EDT EXAM: DUPLEX ULTRASOUND LOWER, BILATERAL HISTORY: Bilateral lower extremity edema. Clinical concern for deep venous thrombosis The report of duplex of the right lower extremity 01/02/23 was-no DVT TECHNIQUE: Real-time ultrasonography of the venous system from the groin to the proximal calf is performed. Compression and augmentation were used as needed. Color mapping was performed. Doppler spectral analysis was performed. FINDINGS: The venous system from the groin into the proximal calf was visualized and compressible. The caliber appears within normal limits. The visualized venous system is compressible. There is appropriate color saturation of the lumen. Appropriate spectral waveforms were obtained during augmentation and compression. No other significant findings. Procedure Note Lion Lee MD - 07/03/2025 EXAM: DUPLEX ULTRASOUND LOWER, BILATERAL HISTORY: Bilateral lower extremity edema. Clinical concern for deepvenous thrombosis The report of duplex of the right lower extremity 01/02/23 was-no DVT TECHNIQUE: Real-time ultrasonography of the venous system from the grointo the proximal calf is performed. Compression and augmentation were usedas needed. Color mapping was performed. Doppler spectral analysis wasperformed. FINDINGS: The venous system from the groin into the proximal calf wasvisualized and compressible. The caliber appears within normal limits. The visualized venous system is compressible. There is appropriate colorsaturation of the lumen. Appropriate spectral waveforms were obtained during augmentation andcompression. No other significant findings. IMPRESSION: No deep venous thrombosis demonstrated. -------- FINAL REPORT -------- Dictated By: Lion Lee Dictated Date: 07/03/2025 10:09 ET Assigned Physician: Lion Lee Reviewed and Electronically Signed By: Lion Lee Signed Date: 07/03/2025 10:11 ET Workstation ID: [id number] Transcribed By: Self Edit Transcribed Date: 07/03/2025 10:09 ET us Anisa ANSARI CV VASCULAR PROCEDURES Final Result * hCG, serum, qualitative (07/03/2025 9:41 AM EDT) hCG Qual Negative Negative 07/03/2025 10:11 AM EDT [facility] Blood Venous blood specimen / Unknown Venipuncture / Unknown 07/03/2025 9:41 AM EDT 07/03/2025 9:47 AM EDT Anisa ANSARI LAB BLOOD ORDERABLES Final R esult Performing Organization Address City/[facility]/ZIP Co de Phone Number [facility] [address] [place] [address], [place] [phone] * D-dimer, quantitative (07/03/2025 9:41 AM EDT) Pathologist [facility] D-Dimer, Quant (D-DU) 230 <=230 ng/mL DDU LAB COAGULATION METHOD 07/03/2025 9:59 AM EDT [facility] Blood Venous blood specimen / Unknown Venipuncture / Unknown 07/03/2025 9:41 AM EDT 07/03/2025 9:47 AM EDT Narrative [facility] - 07/03/2025 9:59 AM EDT D-Dimer <230 ng/mL (D-Dimer units) is the threshold for exclusion of DVT/PE. D-Dimer may be elevated in: Critically ill, severely infected, trauma patients, DIC, acute CVA, acute VT, unstable angina, AF, old age, , and smoking. D-Dimer may be decreased with: Initiation of heparin therapy and oral anticoagulants. Anisa ANSARI LAB BLOOD ORDERABLES Final R esult Performing Organization Address City/[facility]/ZIP Co de Phone Number [facility] [address] [place] [address], [place] [phone] * (ABNORMAL) CBC auto differential (07/03/2025 9:41 AM EDT) Pathologist [facility] WBC 7.4 4.8 - 10.8 K/mcL LAB HEMETOLOGY METHOD 07/03/2025 9:55 AM EDT [facility] RBC 4.50 3.80 - 4.80 M/mcL LAB HEMETOLOGY METHOD 07/03/2025 9:55 AM EDT [facility] Hemoglobin 11.8 11.5 - 16.0 g/dL LAB HEMETOLOGY METHOD 07/03/2025 9:55 AM [facility] Hematocrit 38.6 35.0 - 47.0 % LAB HEMETOLOGY METHOD 07/03/2025 9:55 AM [facility] MCV 85.6 79.0 - 98.0 FL LAB HEMETOLOGY METHOD 07/03/2025 9:55 AM [facility] MCH 26.2(L) 27.0 - 32.0 pcg LAB HEMETOLOGY METHOD 07/03/2025 9:55 AM [facility] MCHC 30.6(L) 32.0 - 37.0 g/dL LAB HEMETOLOGY METHOD 07/03/2025 9:55 AM [facility] RDW 14.5 11.0 - 15.0 % LAB HEMETOLOGY METHOD 07/03/2025 9:55 AM [facility] Platelets 201 130 - 400 K/mcL LAB HEMETOLOGY METHOD 07/03/2025 9:55 AM [facility] MPV 10.2 7.0 - 11.0 FL LAB HEMETOLOGY METHOD 07/03/2025 9:55 AM [facility] NRBC 0.0 <1.0 % LAB HEMETOLOGY METHOD 07/03/2025 9:55 AM [facility] NRBC Absolute 0.00 <0.10 K/mcL LAB HEMETOLOGY METHOD 07/03/2025 9:55 AM [facility] Neutrophils Relative 62.2 % LAB HEMETOLOGY METHOD 07/03/2025 9:55 AM [facility] Lymphocytes Relative 27.9 % LAB HEMETOLOGY METHOD 07/03/2025 9:55 AM [facility] Monocytes Relative 6.9 % LAB HEMETOLOGY METHOD 07/03/2025 9:55 AM EDT [facility] Eosinophils Relative 2.0 % LAB HEMETOLOGY METHOD 07/03/2025 9:55 AM EDT [facility] Basophils Relative 0.5 % LAB HEMETOLOGY METHOD [facility]/03[facility]25 [facility] Immature Granulocytes Relative 0.5 % LAB HEMETOLOGY METHOD 07/03/2025 9:55 AM EDT [facility] Neutrophils Absolute 4.57 1.50 - 7.00 K/mcL LAB HEMETOLOGY METHOD 07/03/2025 9:55 AM EDT [facility] Lymphocytes Absolute 2.05 1.00 - 5.00 K/mcL LAB HEMETOLOGY METHOD 07/03/2025 9:55 AM [facility] Monocytes Absolute 0.51 0.20 - 1.00 K/mcL LAB HEMETOLOGY METHOD 07/03/2025 9:55 AM EDT [facility] Eosinophils Absolute 0.15 0.00 - 0.50 K/mcL LAB HEMETOLOGY METHOD 07/03/2025 9:55 AM EDT [facility] Basophils Absolute 0.04 0.00 - 0.20 K/mcL LAB HEMETOLOGY METHOD 07/03/2025 9:55 [facility] Immature Granulocytes Absolute 0.04(H) 0.00 - 0.03 K/mcL LAB HEMETOLOGY METHOD 07/03/2025 9:55 AM EDT [facility] Blood Venous blood specimen / Unknown Venipuncture / Unknown 07/03/2025 9:41 AM EDT 07/03/2025 9:47 AM EDT us Jennifer Mendes MD LAB BLOOD ORDERABLES Final Resul t [facility] [address] [place] [address], * B-type natriuretic peptide (07/03/2025 9:41 AM EDT) BNP <2 <=100 pcg/mL LAB CHEMISTRY METHOD 07/03/2025 10:34 AM EDT [facility] Blood Venous blood specimen / Unknown Venipuncture / Unknown 07/03/2025 9:41 AM EDT 07/03/2025 9:47 AM EDT us Jennifer Mendes MD LAB BLOOD ORDERABLES Final Resul t [facility] [address] [place] [address], * Magnesium (07/03/2025 9:41 AM EDT) Pathologist [facility] Magnesium 2.3 1.9 - 2.6 mg/dL LAB CHEMISTRY METHOD 07/03/2025 10:24 AM EDT [facility] Blood Venous blood specimen / Unknown Venipuncture / Unknown 07/03/2025 9:41 AM EDT 07/03/2025 9:47 AM EDT us Jennifer Mendes MD LAB BLOOD ORDERABLES Final Resul t [facility] [address] [place] [address], [place] [phone] * Lipase (07/03/2025 9:41 AM EDT) Pathologist [facility] Lipase 15 13 - 75 unit/L LAB CHEMISTRY METHOD 07/03/2025 10:24 AM EDT [facility] Blood Venous blood specimen / Unknown Venipuncture / Unknown 07/03/2025 9:41 AM EDT 07/03/2025 9:47 AM EDT us Jennifer Mendes MD LAB BLOOD ORDERABLES Final Resul t [facility] [address] [place] [address], * (ABNORMAL) Comprehensive metabolic panel (07/03/2025 9:41 AM EDT) Sodium 142 133 - 145 mmol/L LAB CHEMISTRY METHOD 07/03/2025 10:24 AM EDT [facility] Potassium 4.1 3.5 - 5.5 mmol/L LAB CHEMISTRY METHOD 07/03/2025 10:24 AM [facility] Chloride 111(H) 96 - 110 mmol/L LAB CHEMISTRY METHOD 07/03/2025 10:24 AM [facility] CO2 26 21 - 32 mmol/L LAB CHEMISTRY METHOD 07/03/2025 10:24 AM [facility] Anion Gap 5 3 - 11 LAB CHEMISTRY METHOD 07/03/2025 10:24 AM [facility] Glucose 120(H) 70 - 100 mg/dL LAB CHEMISTRY METHOD 07/03/2025 10:24 AM [facility] BUN 18 5 - 25 mg/dL LAB CHEMISTRY METHOD 07/03/2025 10:24 AM [facility] Creatinine 0.84 0.50 - 1.10 mg/dL LAB CHEMISTRY METHOD 07/03/2025 10:24 AM [facility] eGFR 85 >=60 mL/min/1. 73m2 LAB CHEMISTRY METHOD 07/03/2025 10:24 AM [facility] Comment:Calculation based on the Chronic Kidney Disease Epidemiology Collaboration (CKD-EPI) equation refit without adjustment for race. BUN/Creatinine Ratio 21.4 LAB CHEMISTRY METHOD 07/03/2025 10:24 AM [facility] Calcium 8.6 8.5 - 10.5 mg/dL LAB CHEMISTRY METHOD 07/03/2025 10:24 [facility] AST (SGOT) 17 10 - 42 unit/L LAB CHEMISTRY METHOD 07/03/2025 10:24 AM EDT [facility] ALT (SGPT) 22 10 - 60 unit/L LAB CHEMISTRY METHOD 07/03/2025 10:24 AM [facility] Alkaline Phosphatase 137(H) 42 - 121 unit/L LAB CHEMISTRY METHOD 07/03/2025 10:24 AM EDT [facility] Total Protein 7.0 6.0 - 8.0 g/dL LAB CHEMISTRY METHOD 07/03/2025 10:24 AM T [facility] Albumin 3.6 3.2 - 5.0 g/dL LAB CHEMISTRY METHOD 07/03/2025 10:24 [facility] Total Bilirubin 0.4 0.0 - 1.4 mg/dL LAB CHEMISTRY METHOD 07/03/2025 10:24 AM EDT [facility] Blood Venous blood specimen / Unknown Venipuncture / Unknown 07/03/2025 9:41 AM EDT 07/03/2025 9:47 AM EDT Jennifer Mendes MD LAB BLOOD ORDERABLES Final Resul t [facility] [address] [place] [address], * Troponin I high sensitivity (07/03/2025 9:41 AM EDT) High Sensitivity Troponin I 34 <=54 ng/L LAB CHEMISTRY METHOD 07/03/2025 10:21 AM EDT [facility] Blood Venous blood specimen / Unknown Venipuncture / Unknown 07/03/2025 9:41 AM EDT 07/03/2025 9:47 AM EDT Narrative [facility] - 07/03/2025 10:21 AM EDT High levels of biotin in samples may falsely decrease hsTroponin values. Use caution when interpreting hsTroponin results in patients taking biotin who exhibit renal impairment (eGFR <60) or in patients taking more than 20 mg/day of biotin. us Jennifer Mendes MD LAB BLOOD ORDERABLES Final Resul t Performing Organization Address [facility] de Phone Number [facility] [address] [place] [address], * Troponin I high sensitivity (07/03/2025 9:41 AM EDT) [facility] High Sensitivity Troponin I 35 <=54 ng/L LAB CHEMISTRY METHOD 07/03/2025 10:21 AM EDT [facility] Blood Venous blood specimen / Unknown Venipuncture / Unknown 07/03/2025 9:41 AM EDT 07/03/2025 9:47 AM EDT Narrative [facility] - 07/03/2025 10:21 AM EDT High levels of biotin in samples may falsely decrease hsTroponin values. Use caution when interpreting hsTroponin results in patients taking biotin who exhibit renal impairment (eGFR <60) or in patients taking more than 20 mg/day of biotin. us Jennifer Mendes MD LAB BLOOD ORDERABLES Final Resul t Performing Organization Address [facility] Phone Number [facility] [address] [place] [address], * ECG 12 lead (07/03/2025 9:21 AM EDT) [facility] Ventricular Rate ECG 85 BPM GEMUSE Atrial Rate 85 BPM GEMUSE P-R Interval 330 ms GEMUSE QRS Duration 86 ms GEMUSE Q-T Interval 356 ms GEMUSE QTc 423 ms GEMUSE P Wave [place] 45 degrees GEMUSE R [place] -23 degrees GEMUSE T [place] 2 degrees GEMUSE ECG Interpretation Poor data quality, interpretation may be adversely affected Normal sinus rhythm Abnormal ECG When compared with ECG of 11-JUL-2023 16:08, Electronic ventricular pacemaker has replaced Sinus rhythm Confirmed by Tigre SANDERS JOHN ([id number]) on 07/04/2025 4:33:00 PM GEMUSE 07/03/2025 9:21 AM EDT 07/04/2025 4:33 PM EST us Jennifer Mendes MD ECG ORDERABLES Final Result [id number] documented in this encounter Visit Diagnoses Diagnosis Asthma exacerbation- Primary Shortness of breath Bilateral lower extremity edema Mild intermittent asthma with exacerbation Unspecified asthma, with exacerbation documented in this encounter Admitting Diagnoses Diagnosis Asthma exacerbation documented in this encounter Administered Medications Inactive Administered Medications - up to 3 most recent administrations Medication Order MAR Action Action Date Dose Rate Site acetaminophen (TYLENOL) tablet 650 mg 650 mg, oral, Every 6 hours PRN, mild pain, fever - temperature GREATER than 38 C (100.4 F), Starting on 07/03/25 at 1322 albuterol 2.5 mg /3 mL (0.083 %) nebulizer solution 2.5 mg 2.5 mg, nebulization, Every 4 hours PRN, wheezing, shortness of breath, Starting on 07/03/25 at 1322 Given 07/04/2025 1:17 AM EDT 2.5 mg Given 07/03/2025 2:41 PM EDT 2.5 mg Ot her aluminum-magnesium hydroxide-simethicone (MAALOX) 200-200-20 mg/5 mL suspension 15 mL 15 mL, oral, 4 times daily PRN, heartburn, Starting on 07/03/25 at 1322 ARIPiprazole (ABILIFY) tablet 20 mg 20 mg, oral, Daily, First dose on 07/04/25 at 0900 Given 07/04/2025 8:05 AM EST 20 mg clonazePAM (KlonoPIN) tablet 1 mg 1 mg, oral, 2 times daily PRN, anxiety, Starting on 07/03/25 at 1522, Hazardous Medication Intact: - Single pair of ASTM standard [id number] certified gloves - Eye/face protection if vomit or potential to spit up Manipulated: - Double pair of ASTM standard [id number] certified gloves - Eye/face protection if vomit or potential to spit up - Staff at reproductive risk must also wear a hazardous gown - Crushing must be performed in sealed closed pouch - Splitting/cutting should be performed by pharmacy, if possible Given 07/03/2025 9:23 PM EDT 1 mg enoxaparin (LOVENOX) injection 40 mg 40 mg, subcutaneous, Every 12 hours scheduled, First dose on 07/03/25 at 2100, Indication: VTE/PE Prophylaxis Given 07/04/2025 8:04 AM EST 40 mg Right Lower Abdomen Given 07/03/2025 9:23 PM EDT 40 mg Le ft Upper Abdomen famotidine (PEPCID) tablet 20 mg 20 mg, oral, 2 times daily, First dose on 07/03/25 at 1336 Given 07/04/2025 8:06 AM EST 20 mg Given 07/03/2025 9:23 PM EDT 20 mg Given 07/03/2025 2:41 PM EDT 20 mg furosemide (LASIX) injection 20 mg 20 mg, intravenous, BID Diuretic, First dose on 07/03/25 at 1430 Given 07/04/2025 8:05 AM EST 20 mg Given 07/03/2025 2:41 PM EDT 20 mg Ot her iopamidoL (ISOVUE-370) 370 mg iodine /mL (76 %) injection 90 mL 90 mL, intravenous, Once in imaging, Starting on 07/03/25 at 1055, For 1 dose Given 07/03/2025 10:58 AM EDT 155 mL ipratropium-albuteroL (DUONEB) 0.5-2.5 mg/3 mL nebulizer solution 3 mL 3 mL, nebulization, Once, On 07/03/25 at 1110, For 1 dose Given 07/03/2025 11:24 AM EDT 3 mL ipratropium-albuteroL (DUONEB) 0.5-2.5 mg/3 mL nebulizer solution 3 mL 3 mL, nebulization, 4 times daily, First dose on 07/03/25 at 1600 Given 07/04/2025 7:54 AM EST 3 mL Given 07/03/2025 8:54 PM EDT 3 mL Given 07/03/2025 4:16 PM EDT 3 mL lamoTRIgine (LaMICtal) tablet 200 mg 200 mg, oral, 2 times daily, First dose on 07/03/25 at 2100 Given 07/04/2025 8:06 AM EST 200 mg Given 07/03/2025 9:24 PM EDT 200 mg magnesium sulfate 2 gram/50 mL (4 %) IVPB 2 g 2 g, intravenous, at 100 mL/hr, Administer over 30 Minutes, Once, On 07/03/25 at 1305, For 1 dose New Bag 07/03/2025 2:49 PM EDT 2 g 100 mL/hr metoclopramide (REGLAN) injection 5 mg 5 mg, intravenous, Once, On 07/03/25 at 1800, For 1 dose, Doses LESS than or equal to 10 mg can be given IV push undiluted over 1 minute Given 07/03/2025 6:02 PM EDT 5 mg mirtazapine (REMERON ADA-TAB) disintegrating tablet 15 mg 15 mg, oral, Nightly, First dose on 07/03/25 at 2100 Given 07/03/2025 9:23 PM EDT 15 mg nortriptyline (PAMELOR) capsule 10 mg 10 mg, oral, Nightly, First dose on 07/03/25 at 2100 Given 07/03/2025 9:23 PM EDT 10 mg ondansetron (PF) (ZOFRAN) injection 4 mg 4 mg, intravenous, Every 6 hours PRN, vomiting, nausea, Starting on 07/03/25 at 1743 Given 07/03/2025 8:11 PM EDT 4 mg polyethylene glycol (MIRALAX) packet 17 g 17 g, oral, Daily PRN, constipation, Starting on 07/03/25 at 1322 pregabalin (LYRICA) capsule 100 mg 100 mg, oral, 3 times daily, First dose on 07/03/25 at 1523 Given 07/04/2025 8:05 AM EST 100 mg Given 07/03/2025 9:23 PM EDT 100 mg Given 07/03/2025 4:09 PM EDT 100 mg sertraline (ZOLOFT) tablet 50 mg 50 mg, oral, Daily, First dose on 07/04/25 at 0900 Given 07/04/2025 8:06 AM EST 50 mg sodium chloride 0.9 % flush 10 mL 10 mL, intravenous, Once, On 07/03/25 at 1056, For 1 dose Given 07/03/2025 10:58 AM EDT 10 mL sodium chloride 0.9 % flush 10 mL 10 mL, intravenous, 2 times daily, First dose on 07/03/25 at 1334 Given 07/04/2025 8:04 AM EST 10 mL Given 07/03/2025 8:11 PM EDT 10 mL sodium chloride 0.9 % flush 10 mL 10 mL, intravenous, As needed, line care, Starting on 07/03/25 at 1332 documented in this encounter Historical Medications * This list may reflect changes made after this encounter. sertraline (ZOLOFT) 50 mg tablet Take 1 tablet (50 mg total) by mouth 1 (one) time each day. pregabalin (LYRICA) 100 mg capsule Take 1 capsule (100 mg total) by mouth 3 (three) times a day. nortriptyline (PAMELOR) 10 mg capsule Take 1 capsule (10 mg total) by mouth at bedtime. mirtazapine (REMERON ADA-TAB) 15 mg disintegrating tablet Dissolve 1 tablet (15 mg total) on top of the tongue at bedtime. lamoTRIgine (LaMICtal) 200 mg tablet Take 1 tablet (200 mg total) by mouth 2 (two) times a day. clonazePAM (KlonoPIN) 1 mg tablet Take 1 tablet (1 mg total) by mouth 2 (two) times a day. ARIPiprazole (ABILIFY) 20 mg tablet Take 1 tablet (20 mg total) by mouth 1 (one) time each day. added in this encounter Active and Recently Administered Medications Due to Daylight Saving Time, this section may contain times in both EDT and EST. Scheduled Medication Order 07/02/2025 07/03/2025 07/04/2025 albuterol 2.5 mg /3 mL (0.083 %) nebulizer solution 10 mg 10 mg, nebulization, Once, On 07/03/25 at 1305, For 1 dose 1445 (Not Given - Provider: Alisson Dee RN - Reason: Patient/Resident/Agent refused - education provided ) ARIPiprazole (ABILIFY) tablet 20 mg 20 mg, oral, Daily, First dose on 07/04/25 at 0900 0805 (Given - Provid er: Zhanna Bedoya RN) enoxaparin (LOVENOX) injection 40 mg 40 mg, subcutaneous, Every 12 hours scheduled, First dose on 07/03/25 at 2100, Indication: VTE/PE Prophylaxis 2123 (Given - Provider: Megan Chen, GILLIAN) 0804 (Given - Provider: Zhanna Bedoya, GILLIAN) famotidine (PEPCID) tablet 20 mg 20 mg, oral, 2 times daily, First dose on 07/03/25 at 1336 1441 (Given - Provider: Alisson Dee RN)2123 (Given - Provider: Megan Chen RN) 0806 (Given - Provider: Zhanna Bedoya, GILLIAN) furosemide (LASIX) injection 20 mg 20 mg, intravenous, BID Diuretic, First dose on 07/03/25 at 1430 1441 (Given - Provider: Alisson Dee RN) 0805 (Given - Provider: Zhanna Bedoya RN) iopamidoL (ISOVUE-370) 370 mg iodine /mL (76 %) injection 90 mL (COMPLETED) 90 mL, intravenous, Once in imaging, Starting on 07/03/25 at 1055, For 1 dose 1058 (Given - Provider: Jocelin Ferraro) ipratropium-albuteroL (DUONEB) 0.5-2.5 mg/3 mL nebulizer solution 3 mL (COMPLETED) 3 mL, nebulization, Once, On 07/03/25 at 1110, For 1 dose 1124 (Given - Provider: Alisson Dee RN) ipratropium-albuteroL (DUONEB) 0.5-2.5 mg/3 mL nebulizer solution 3 mL 3 mL, nebulization, 4 times daily, First dose on 07/03/25 at 1600 1616 (Given - Provider: Tamara Alexis, NATHALIA)2054 (Given - Provider: Shirin Ocampo) 0754 (Given - Provider: Rosalba Walden, NATHALIA)1200 (Canceled Entry - Provider: Automatic Discharge Provider - Comment: Automatically canceled at discontinue of medication order) lamoTRIgine (LaMICtal) tablet 200 mg 200 mg, oral, 2 times daily, First dose on 07/03/25 at 2100 212 (Given - Provider: Megan Chen RN) 08 (Given - Provider: Zhanna Bedoya, GILLIAN) magnesium sulfate 2 gram/50 mL (4 %) IVPB 2 g (COMPLETED) 2 g, intravenous, at 100 mL/hr, Administer over 30 Minutes, Once, On 07/03/25 at 1305, For 1 dose 1449 (New Bag - Provider: Alisson Dee RN)1551 (Stopped - Provider: Xavier Burnett RN) metoclopramide (REGLAN) injection 5 mg (COMPLETED) 5 mg, intravenous, Once, On 07/03/25 at 1800, For 1 dose, Doses LESS than or equal to 10 mg can be given IV push undiluted over 1 minute 1802 (Given - Provider: Xavier Burnett RN) mirtazapine (REMERON ADA-TAB) disintegrating tablet 15 mg 15 mg, oral, Nightly, First dose on 07/03/25 at 2099 2122 (Given - Provider: Megan Chen RN) nortriptyline (PAMELOR) capsule 10 mg 10 mg, oral, Nightly, First dose on 07/03/25 at 2100 2122 (Given - Provider: Megan Chen RN) pregabalin (LYRICA) capsule 100 mg 100 mg, oral, 3 times daily, First dose on 07/03/25 at 1523 1609 (Given - Provider: Oc Breaux RN)2123 (Given - Provider: Megan Chen RN) 0805 (Given - Provider: Zhanna Bedoya, GILLIAN) sertraline (ZOLOFT) tablet 50 mg 50 mg, oral, Daily, First dose on 07/04/25 at 0900 0806 (Given - Provid er: Zhanna Bedoya RN) sodium chloride 0.9 % flush 10 mL (COMPLETED) 10 mL, intravenous, Once, On 07/03/25 at 1056, For 1 dose 1058 (Given - Provider: Jocelin Ferraro) sodium chloride 0.9 % flush 10 mL(Linked Group 1) 10 mL, intravenous, 2 times daily, First dose on 07/03/25 at 1334 1406 (Not Given - Provider: Alisson Dee RN - Reason: Patient/Resident/Agent refused - education provided )2010 (Given - Provider: Megan Chen RN) 0804 (Given - Provider: Zhanna Bedoya RN) PRN Medication Order 07/02/2025 07/03/2025 07/04/2025 acetaminophen (TYLENOL) tablet 650 mg 650 mg, oral, Every 6 hours PRN, mild pain, fever - temperature GREATER than 38 C (100.4 F), Starting on 07/03/25 at 1322 albuterol 2.5 mg /3 mL (0.083 %) nebulizer solution 2.5 mg 2.5 mg, nebulization, Every 4 hours PRN, wheezing, shortness of breath, Starting on 07/03/25 at 1322 1441 (Given - Provider: Alisson Dee RN) 0117 (Given - Provider: Meka Ayala) aluminum-magnesium hydroxide-simethicone (MAALOX) 200-200-20 mg/5 mL suspension 15 mL 15 mL, oral, 4 times daily PRN, heartburn, Starting on 07/03/25 at 1322 clonazePAM (KlonoPIN) tablet 1 mg 1 mg, oral, 2 times daily PRN, anxiety, Starting on 07/03/25 at 1522, Hazardous Medication Intact: - Single pair of ASTM standard [id number] certified gloves - Eye/face protection if vomit or potential to spit up Manipulated: - Double pair of ASTM standard [id number] certified gloves - Eye/face protection if vomit or potential to spit up - Staff at reproductive risk must also wear a hazardous gown - Crushing must be performed in sealed closed pouch - Splitting/cutting should be performed by pharmacy, if possible 2122 (Given - Provider: Megan Chen RN) ondansetron (PF) (ZOFRAN) injection 4 mg 4 mg, intravenous, Every 6 hours PRN, vomiting, nausea, Starting on 07/03/25 at 1743 2010 (Given - Provider: Megan Chen RN) polyethylene glycol (MIRALAX) packet 17 g 17 g, oral, Daily PRN, constipation, Starting on 07/03/25 at 1322 sodium chloride 0.9 % flush 10 mL(Linked Group 1) 10 mL, intravenous, As needed, line care, Starting on 07/03/25 at 1332 Linked Groups Order Group 1: Insert peripheral IV (CANCELED) STAT, Once, On 07/03/25 at 1333, For 1 occurrence And Maintain IV access (CANCELED) Until discontinued, Starting on 07/03/25 at 1333, Until Specified And Saline lock IV (CANCELED) Routine, Once, On 07/03/25 at 1333, For 1 occurrence And sodium chloride 0.9 % flush 10 mLJump to med 10 mL, intravenous, 2 times daily, First dose on 07/03/25 at 1334 And sodium chloride 0.9 % flush 10 mLJump to med 10 mL, intravenous, As needed, line care, Starting on 07/03/25 at 1332 documented in this encounter Orders Medications Ordered That Trent ht Not Have Been Administered Count Last Ordered Date First Ordered Date acetaminophen (TYLENOL) tablet 650 mg 1 09/2024 albuterol 2.5 mg /3 mL (0.08 3 %) nebulizer solution 10 mg 1 07/03/2025 aluminum-magnesium hydroxide -simethicone (MAALOX) 200-200-20 mg/5 mL suspension 15 mL 1 07/03/2025 ipratropium-albuteroL (DUONE B) 0.5-2.5 mg/3 mL nebulizer solution 3 mL 1 07/03/2025 methylPREDNISolone sodium malhotra cc (SOLU-Medrol) injection 125 mg 1 07/03/2025 methylPREDNISolone sodium malhotra cc (SOLU-Medrol) injection 60 mg 1 07/03/2025 polyethylene glycol (MIRALAX) packet 17 g 1 07/03/2025 sodium chloride 0.9 % flush 10 mL 1 025 EKG Orders Without Results Count Last Ordered D ate First Ordered Date ECG 12-LEAD 1 07/03/2025 Nursing Count Last Ordered Date First Orde red Date FOLLOW UP WITH PROVIDER 1 07/04/2025 CHECK PULSE OXIMETRY WHILE AMBULATING 1 09/2024 Respiratory Care Count Last Ordered Date First Ordered Date OXYGEN THERAPY, ADULT 2 07/04/2025 CPAP NIV 1 07/03/2025 Admission Count Last Ordered Date First Orde red Date INITIATE OBSERVATION STATUS 2 07/03/2025 Transfer Count Last Ordered Date First Orde red Date ED TO FLOOR BED REQUEST 1 07/03/2025 Discharge Count Last Ordered Date First Orde red Date DISCHARGE PATIENT 1 07/04/2025 documented in this encounter Additional Health Concerns Infection Onset Date Last Indicated Resolved Time Respiratory Rule-Out 07/03/2025 07/03/2025 025 11:44 AM EDT COVID-19 Rule-Out 07/03/2025 07/03/2025 07/03/2025 11:44 AM EDT documented as of this encounter 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
--- NOTE | 2025-07-06 10:46 | MHC.OFFVIS ---
Intake Visit Reasons: OV f/u Rt shoulder pain Intake Note: Lisa is a 49 year old female who presents with complaints of intermittent discomfort along the lateral aspect of her right shoulder. She continues with her physical therapy exercises. At her last visit she requested to go back on full unrestricted duty at work. She then contacted the office and asked whether or not she could be on light duty. Allergies nitrofurantoin (From MACROBID) Allergy (Unknown, Verified 07/06/25 10:49) respiratory symptoms NSAIDS (Non-Steroidal Anti-Inflamma Adverse Reaction (Mild, Verified 07/06/25 10:49) Stomach issues Adhesive Tape Allergy (Intermediate, Uncoded 07/06/25 10:49) Hives SEASONAL ALLERGIES Allergy (Intermediate, Uncoded 07/06/25 10:49) respiratory symptoms Medication List - Last Reconciled 07/06/25 by Bill Saunders MD albuterol sulfate 90 mcg/actuation inhalation aripiprazole 20 mg PO DAILY clonazepam 1 tab PO BID PRN cyclobenzaprine 1 to 2 orally bedtime PRN; diclofenac sodium 3% 1 appl topical BID diphenoxylate-atropine 2.5-0.025 mg (Lomotil) 1 tab PO BID PRN esomeprazole magnesium 40 mg PO DAILY famotidine 40 mg PO BEDTIME fluconazole 150 mg PO QWEEK 4 weeks lamotrigine 200 mg PO BID 30 days loperamide 2 mg PO Q6H PRN mirtazapine mg PO nortriptyline 10 mg PO BEDTIME ondansetron 8 mg PO Q8H PRN pregabalin 100 mg PO TID 15 days promethazine 50 mg PO BID PRN 2 days scopolamine base 1 patch transdermal Q3D PRN sertraline 50 mg PO DAILY sucralfate (Carafate) 1 g PO QID 30 days PFSH Medical History Dyspnea on exertion Chronic pain of both feet Fatigue Therapeutic drug monitoring Diarrhea LUQ pain RUQ pain Anemia Urinary retention Obesity Recurrent UTI DARRIUS (obstructive sleep apnea) Neuropathy Hyperplastic adenomatous polyp of stomach Erosive esophagitis Chronic foot pain Chondromalacia patellae Cervical radiculopathy GERD (gastroesophageal reflux disease) Nausea & vomiting Skin ulcer of abdomen Asthma Encounter for insertion of mirena IUD DARRIUS on CPAP Urinary bladder disorder Hiatal hernia with GERD Rectovaginal fistula Contusion of right knee Gastritis Vomiting Heart murmur Bipolar depression Moderate asthma Surgical History H/O eye surgery S/P implantation of urinary electronic stimulator device H/O hernia repair History of esophagogastroduodenoscopy (EGD) History of open reduction and internal fixation (ORIF) procedure History of colonoscopy H/O dilation and curettage Hx laparoscopic cholecystectomy Gastric bypass status for obesity (~1999) Family History Father Hx of type 1 diabetes mellitus Mother Hx of colon cancer, stage IV Social History Household Members: Spouse Housing: House Are you a primary clinical care coordinator to a significant other at home: No Do you presently have visiting nurse or other home services: No Alcohol intake: current Alcohol intake frequency: does not drink Comment: RIGHT KNEE CONTUSION Patient Tobacco Use Status: Former Tobacco user Tobacco use type: Cigarette Years Smoked: quit in 2003, only smoked for a couple years e-Cigarette/Vaping Use: Never Used Second Hand Smoke Exposure: No service: No Current occupational status: employed 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 Foss presents with intermittent right shoulder discomfort due to deconditioning and rotator cuff tendinosis. The patient's right shoulder MRI shows no evidence of rotator cuff or labral tearing. There is no indication for surgical intervention. The patient can continue with her physical therapy exercises. At this point I have no reason to keep the patient on light duty at work. She is cleared from my standpoint for full unrestricted work duties. This was discussed at length with the patient. She will follow up on an as-needed basis. I spent 20 minutes in reviewing the patient's records and imaging studies, seeing the patient and documenting in the medical record. Coding Level of Care Code Est Pt Level 3 (64187) Complex EM visit Add On G2211 Diagnoses Right shoulder pain M25.511
--- OUTSIDE RECORDS SUMMARY | 2025-07-06 12:34 | XMS_ITS | Clinical Summary ---
Author Organization [facility] Address [address] [place] [address] Care Team Providers Care Float Remover Name Role Phone Caridad Louis MD Primary [...] Vaccine, 23 Valent 07/16/2017 Pneumococcal conjugate PCV20,polysaccharide DLX911 conjugate, adjuvant, PF (Prevnar 20) 12/20/2022 Tetanus [...] Completed 3, 07/16/2017 Procedures * Due to [place] state law, this organization might not be sharing negative HIV tests. Procedure Name Priority Date/Time Associated Diagnosis Comments POCT GLUCOSE Routine 10/27/2024 10:01 AM EST from Last 3 Months or Most Recently Relevant to Health Maintenance Results * Due to [place] [employer] law, this organization might not be sharing negative HIV tests. * (ABNORMAL) POCT Glucose, interfaced (10/27/2024 10:01 AM EST) [facility] Signature Glucose, POCT 105(H) 70 - 99 mg/dL 10/27/2024 10:02 AM EST [facility], [facility] Comment: The sequins stringer has not determined the efficacy of this test in Critically ill patients. [facility] defines Critically ill patients for the purpose [...] POCT ORDERABLES - DEVICE Final Result [facility] [address] [place] [address], [place] from Last 3 Months or Most Recently Relevant to Health Maintenance [place] [address] [place] [address] [employer] Advance Directives * Presumed Full Code (Latest Code Status on File) Date Activated Date Inactivated Comments 10/27/2024 10:29 AM 10/27/2024 9:21 PM * Presumed Full Code Date Activated Date Inactivated Comments 08/04/2024 8:56 AM 08/04/2024 3:36 PM Care Teams Float Remover Relationship Specialty Start Date End Date Caridad Louis MD [address] [place] [address] PCP - General Internal Medicine 05/05/24
--- OUTSIDE RECORDS SUMMARY | 2025-07-06 12:34 | XMS_ITS | Encounter Summary ---
Author Organization [facility] Address [address] [place] [address] Care Team Providers Care Payroll Master Name Role Phone Caridad Louis MD Primary Care Provider [phone]- [phone] Encounter Details Date Type Department Care Team (Late st Contact Info) Description 09/03/2024 [place] Message [facility] Financial Counseling Department [address] [place] [id number] Mychart, Generic Provider [address] [place], [place] [id number] Financial Assistance Social History Tobacco Use Types [...] on filedocumented in this encounter Care Teams Payroll Master Relationship Specialty Start Date End Date Caridad Louis MD [address] [place] [address] PCP - General Internal Medicine 05/05/24 documented as of this encounter
--- OUTSIDE RECORDS SUMMARY | 2025-07-06 12:34 | XMS_ITS | Clinical Summary ---
Author Organization [facility] Address [address] [place] [address] Care Team Providers Care Resolution Analyst Name Role Phone Caridad Louis MD Primary Care Provider [phone]- [phone] Allergies Active Allergy Reactions Criticality Noted Date [...] age to complete this topic Care Teams Resolution Analyst Relationship Specialty Start Date End Date Caridad Louis MD [address] [place] [id number] PCP - General Internal Medicine 12/21/21
--- OUTSIDE RECORDS SUMMARY | 2025-07-06 12:34 | XMS_ITS | Patient Health Record ---
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) Active confirmed Problem Body mass index 40+ - morbidly obese (085059672) Body mass index [BMI] 50.0-59.9, adult (Z68.43) Active confirmed Plan Of Treatment No Information Insurance Providers Payer Name Payer Address Payer Phone Subscriber Number Group Number Insured Name Patient Relationship to Insured Coverage Start Date Coverage End Date [employer] [address] [address] [place] [address] [id number] Lisa Foss Self - patient is the [...] following gastric bypass COVID vaccinated X 2 ([employer]) and [address] ([employer]) Surgical History Surgery Date(Month/Year) colonoscopy 08/24/2020, 11/27/2016, [...]
--- OUTSIDE RECORDS SUMMARY | 2025-07-06 12:35 | XMS_ITS | Clinical Summary ---
Author Organization [facility] Address [address] [place] [address] Phone Care Team Providers Care Green Pipefitter Name Role Phone aCridad Louis MD Primary Care Provider [phone] Allergies Active Allergy Reactions Criticality Noted Date Comments Adhesive Rash 06/18/2024 Nitrofurantoin Anaphylaxis,Itching, Rash High 01/06/2019 Difficulty breathing Nitrofurantoin Monohyd/M-Cryst Anaphylaxis,Itching High 01/06/2019 Other Reaction(s): breathing difficulty,itching Difficulty breathing Nsaids (Non-Steroidal Anti-Inflammatory Drug) GI intolerance 06/18/2024 Other Reaction(s): Peptic Ulcer Disease, SEVERE GASTRITIS Pollen Extracts Unknown 06/18/2024 Medications ARIPiprazole (ABILIFY) 20 mg tablet Take 1 tablet (20 mg total) by mouth 1 (one) time each day. Active clonazePAM (KlonoPIN) 1 mg tablet Take 1 tablet (1 mg total) by mouth 2 (two) times a day. Active lamoTRIgine (LaMICtal) 200 mg tablet Take 1 tablet (200 mg total) by mouth 2 (two) times a day. Active mirtazapine (REMERON ADA-TAB) 15 mg disintegrating tablet Dissolve 1 tablet (15 mg total) on top of the tongue at bedtime. Active nortriptyline (PAMELOR) 10 mg capsule Take 1 capsule (10 mg total) by mouth at bedtime. Active pregabalin (LYRICA) 100 mg capsule Take 1 capsule (100 mg total) by mouth 3 (three) times a day. Active sertraline (ZOLOFT) 50 mg tablet Take 1 tablet (50 mg total) by mouth 1 (one) time each day. Active furosemide (LASIX) 40 mg tablet Take 1 tablet (40 mg total) by mouth 1 (one) time each day for 7 days. 7 each 5 07/11/20 25 Active montelukast (SINGULAIR) 10 mg tablet Take 1 tablet (10 mg total) by mouth at bedtime. 30 each 5 08/03/20 25 Active methylPREDNISolone (MEDROL DOSPAK) 4 mg tablet Take as directed on package. 21 tablet 5 07/10/20 25 Active Active Problems Problem Noted Date Diagnosed Date Asthma exacerbation 07/03/2025 Encounters Date Type Department Care Team Description 07/03/2025 9:08 AM EDT - 07/04/2025 11:29 AM EST Hospital Encounter [facility] [address] [place] [address] Jennifer Mendes MD Bukalo, Nermina, MD Alam, MD Marimar Mild intermittent asthma with exacerbation (Primary Dx); Shortness of breath; Bilateral lower extremity edema Discharge Disposition: Home or Self Care from Last 3 Months Surgical History Surgery Date Site/Laterality Comments COLONOSCOPY PROCEDURE: HISTORICAL COLONOSCOPY; COMMENT: 08/24/20, 11/27/16, 04/2013, 2007 ESOPHAGOGASTRODUODENOSCOPY 10/24/2018 PROCEDURE: MD ESOPHAGOGASTRODUODENOSCOPY TRANSORAL DIAGNOSTIC OTHER SURGICAL HISTORY 03/10/2018 PROCEDURE: MD RPR PARAESOPH HIATAL HERNIA W/LAPT W/O MESH OTHER SURGICAL HISTORY 05/23/2017 PROCEDURE: MD ENDOSCOPY UPPER SMALL INTESTINE BLADDER SURGERY 2016 PROCEDURE: HISTORICAL BLADDER SURGERY; COMMENT: Implantation of electronic stimulator ESOPHAGOGASTRODUODENOSCOPY 02/20/2016 PROCEDURE: MD ESOPHAGOGASTRODUODENOSCOPY TRANSORAL DIAGNOSTIC OTHER SURGICAL HISTORY 11/27/2016 PROCEDURE: MD ENDOSCOPY UPPER SMALL INTESTINE OTHER SURGICAL HISTORY 05/01/2012 PROCEDURE: MD EGD FLEXIBLE TRANSNASAL W/BIOPSY SINGLE/MULTIPLE CHOLECYSTECTOMY 06/02/2010 PROCEDURE: MD LAPAROSCOPY SURG CHOLECYSTECTOMY OTHER SURGICAL HISTORY 2000 PROCEDURE: MD LAPS GSTR RSTCV PX W/BYP ANDREW-EN-Y LIMB <150 CM EYE SURGERY 1979 Right PROCEDURE: HISTORICAL EYE SURGERY; COMMENT: Right eye strabismus surgery for amblyopia GASTRIC BYPASS PROCEDURE: MD GASTRIC RSTCV W/BYP W/SM INT RCNSTJ LIMIT [...] swelling LUQ pain DX:LUQ pain Mood disorder ([facility] V24) DX:M ood disorder ([facility]) Nausea DX:Nausea Neuropathy DX:Neuropathy Obstructive sleep apnea DX:Obstr uctive sleep apnea Otitis media of left ear DX:Otit is media of left ear Pneumonia DX:Pneumonia Recurrent UTI DX:Recurrent UTI Seasonal allergic rhinitis DX:Se asonal allergic rhinitis Severe obesity ([facility] V24, [facility] V28) DX:Severe obesity (HCC) Thrombocytopenia ([facility] V24) D X:Thrombocytopenia ([facility]) Vaginal discharge DX:Vaginal dis charge Weight gain following gastri c bypass surgery DX:Weight gain following gas tric bypass surgery Chest pain DX:Chest pain Non-cardiac chest pain DX:Non-ca rdiac chest pain Rectovaginal fistula DX:Rectovag inal fistula Low back pain DX:Low back pain Morbid obesity with BMI of 5 0.0-59.9, adult ([facility] V24, [facility] V28) DX:Morbid obesity wit h BMI of 50.0-59.9, adult ([facility]) Family History Medical History Relation Name [...] Mass Index 63.35 07/03/2025 9:05 AM EDT Plan of Treatment Health Maintenance Due Date Last Done Comments Breast Cancer Screening 1974 Colorectal Cancer Screening: Colonoscopy 1974 Cervical Cancer Screening: Pap Smear 12/02/1995 Cholesterol Screening (Lipid Panel) 10/02/2019 HIV Screening 10/02/2019 Hepatitis C Screening 10/02/2019 Depression Screening 09/02/2024 RSV Immunization Adult Patients (1 - Risk 50-74 years 1-dose series) 2024 Zoster Vaccines (1 of 2) 2024 COVID-19 Vaccine (4 - season) 2025 06/24/2021, 09/20/2020, 08/30/2020 Influenza Vaccine (#1) 2025 3, 06/12/2021, 06/04/2020, Additional history exists Social Influencers of Health Screening 07/03/2026 07/03/2025 DTaP,Tdap,and Td Vaccines (4 - Td or [...] on patient's age to complete this topic Procedures Procedure Name Priority Date/Time Associated Diagnosis Comments ECG ANNOTATED 07/05/2025 LAVENDER - EDTA Routine 07/04/2025 5:42 AM EST EXTRA TUBES Routine 07/04/2025 5:42 AM EST BASIC METABOLIC PANEL Routine 07/04/2025 5:42 AM EST OXYGEN THERAPY, ADULT Routine 07/04/2025 1:42 AM EDT OXYGEN THERAPY, ADULT Routine 07/04/2025 1:42 AM EDT GOLDBERG URINE CULTURE TUBE STAT 07/03/2025 4:40 PM EDT URINALYSIS WITH REFLEX MICROSCOPIC AND CULTURE STAT 07/03/2025 4:40 PM EDT URINALYSIS WITH [...] 10:10 AM EDT Bilateral lower extremity edema HCG, SERUM, QUALITATIVE STAT Add-on 07/03/2025 9:41 AM EDT D-DIMER STAT 07/03/2025 9:41 AM EDT CBC WITH AUTO DIFFERENTIAL STAT 07/03/2025 9:41 AM EDT B-TYPE NATRIURETIC PEPTIDE STAT 07/03/2025 9:41 AM EDT MAGNESIUM STAT 07/03/2025 9:41 AM EDT LIPASE STAT 07/03/2025 9:41 AM EDT COMPREHENSIVE METABOLIC PANEL STAT 07/03/2025 9:41 AM EDT CBC AND DIFFERENTIAL STAT 07/03/2025 9:41 AM EDT TROPONIN I HIGH SENSITIVITY Timed 07/03/2025 9:41 AM EDT TROPONIN I HIGH SENSITIVITY Timed 07/03/2025 9:41 AM EDT ECG 12-LEAD STAT 07/03/2025 9:21 AM EDT from Last 3 Months Results * ECG-Annotated (07/05/2025) us Provider Onbase MD ECG ORDERABLES Final Result * Lavender tube (07/04/2025 5:42 AM EST) Extra Tube Hold for add-ons. 07/04/2025 8:01 AM EST [facility] ([facility] Comment:Auto resulted. Blood Venous blood specimen / Unknown Venipuncture / Unknown 07/04/2025 5:42 AM EST 07/04/2025 6:49 AM EST us Marimar Moncada MD LAB BLOOD ORDERABLES Final Resul t [facility] [address] [place] [address], * (ABNORMAL) Basic metabolic panel (07/04/2025 5:42 AM EST) Sodium 140 133 - 145 mmol/L LAB CHEMISTRY METHOD 07/04/2025 7:[address] [facility] Potassium 4.4 3.5 - 5.5 mmol/L LAB CHEMISTRY METHOD 07/04/2025 7:[address] [facility] Chloride 106 96 - 110 mmol/L LAB CHEMISTRY METHOD 07/04/2025 7:[address] [facility] CO2 28 21 - 32 mmol/L LAB CHEMISTRY METHOD 07/04/2025 7:[address] [facility] Anion Gap 6 3 - 11 LAB CHEMISTRY METHOD 07/04/2025 7:[address] [facility] Glucose 106(H) 70 - 100 mg/dL LAB CHEMISTRY METHOD 07/04/2025 7:[address] [facility] BUN 14 5 - 25 mg/dL LAB CHEMISTRY METHOD 07/04/2025 7:[address] [facility] Creatinine 0.76 0.50 - 1.10 mg/dL LAB CHEMISTRY METHOD 07/04/2025 7:[address] [facility] eGFR 96 >=60 mL/min/1. 73m2 LAB CHEMISTRY METHOD 07/04/2025 7:[address] [facility] Comment:Calculation based on the Chronic Kidney Disease Epidemiology Collaboration (CKD-EPI) equation refit without adjustment for race. BUN/Creatinine Ratio 18.4 LAB CHEMISTRY METHOD 07/04/2025 7:[address] [facility] Calcium 8.9 8.5 - 10.5 mg/dL LAB CHEMISTRY METHOD 07/04/2025 7:[address] [facility] Blood Venous blood specimen / Unknown Venipuncture / Unknown 07/04/2025 5:42 AM EST 07/04/2025 6:47 AM EST Cynthia ANSARI LAB BLOOD ORDERABLES Final Result [facility] [address] [place] [address], [place] [phone] * (ABNORMAL) Urinalysis with reflex microscopic and culture (07/03/2025 4:40 PM EDT) Specific Curlew Urine 1.018 1.003 - 1.030 LAB URINALYSIS - AUTOMATED METHOD 07/03/2025 5:15 PM EDT [facility] pH, Urine 6.0 5.0 - 8.0 pH LAB URINALYSIS - AUTOMATED METHOD 07/03/2025 5:15 PM [facility] Leukocytes, Urine Small(A) Negative LAB URINALYSIS - AUTOMATED METHOD 07/03/2025 5:15 PM [facility] Nitrite, Urine Negative Negative LAB URINALYSIS - AUTOMATED METHOD 07/03/2025 5:15 PM [facility] Protein, Urine Negative <=Trace mg/dL LAB [facility]ALYSIS - [facility]OMATED [facility] Glucose, Urine Negative Negative mg/dL LAB URINALYSIS - AUTOMATED METHOD 07/03/2025 5:15 PM [facility] Ketones, Urine Negative Negative mg/dL LAB URINALYSIS - AUTOMATED METHOD 07/03/2025 5:15 PM [facility] Urobilinogen, Urine 0.2 0.2 - 1.0 mg/dL LAB URINALYSIS - AUTOMATED METHOD 07/03/2025 5:15 PM [facility] Bilirubin, Urine Negative Negative LAB URINALYSIS - AUTOMATED METHOD 07/03/2025 5:15 PM EDT [facility] Blood, Urine Negative Negative LAB URINALYSIS - AUTOMATED METHOD 07/03/2025 5:15 PM EDT [facility] RBC, Urine 9.5(H) 0 - 4 /HPF LAB URINALYSIS - AUTOMATED METHOD 07/03/2025 5:15 PM EDT [facility] WBC, Urine 3.1 0 - 4 /HPF LAB URINALYSIS - AUTOMATED METHOD 07/03/2025 5:15 PM EDT [facility] Squamous Epithelial, Urine 53 0 - 60 /LPF LAB URINALYSIS - AUTOMATED METHOD 07/03/2025 5:15 PM EDT [facility] Bacteria, Urine Few(A) Negative /HPF LAB URINALYSIS - AUTOMATED METHOD 07/03/2025 5:15 PM EDT [facility] Hyaline Casts, Urine 0.8 0 - 3 /LPF LAB URINALYSIS - AUTOMATED METHOD 07/03/2025 5:15 PM EDT [facility] Urine Urine specimen obtained by clean catch procedure / Unknown Non-blood Collection / Unknown 07/03/2025 4:40 PM EDT 07/03/2025 5:05 PM EDT Anisa ANSARI LAB URINE ORDERABLES Final R esult [facility] [address] [place] [address], * Goldberg urine culture tube (07/03/2025 4:40 PM EDT) Extra Tube Hold for add-ons. 07/03/2025 7:01 PM EDT [facility] Comment:Auto resulted. Urine Urine specimen obtained by clean catch procedure / Unknown Non-blood Collection / Unknown 07/03/2025 4:40 PM EDT 07/03/2025 5:05 PM EDT Anisa ANSARI LAB URINE ORDERABLES Final R esult [facility] [address] [place] [address], [place] [phone] * (ABNORMAL) Culture urine (07/03/2025 4:40 PM EDT) Culture, Urine >=100,000 CFU/mL Escherichia coli(A) SOTO 07/05/2025 11:25 AM EST [facility] Comment: This is an edited result. Previous organism was Gram negative bacilli on 07/04/2025 at 1248 EST. Urine Urine specimen obtained by clean catch procedure / Unknown Non-blood Collection / Unknown 07/03/2025 4:40 PM EDT 07/03/2025 5:15 PM EDT Narrative [facility] - 07/05/2025 11:25 AM EST [...] MICROBIOLOGY - GENERAL O RDERABLES Final Result [facility] [address] [place] [address], * ECG 12 lead (07/03/2025 3:48 PM EDT) Only the most recent of2 resultswithin the time period is included. [facility] Ventricular Rate ECG 91 BPM [facility] Atrial Rate 91 BPM [facility] P-R Interval 178 ms GEMUSE QRS Duration 92 ms G[facility] Q-T Interval 362 ms GEMUSE QTc 445 ms GEMUSE P Wave Industry 42 degrees GEMUSE R Industry -20 degrees GEMUSE T Industry 9 degrees GEMUSE ECG Interpretation Normal sinus rhythm Voltage criteria for left ventricular hypertrophy Abnormal ECG When compared with ECG of 03-JUL-2025 09:21, (unconfirmed) Poor data quality in current ECG precludes serial comparison Confirmed by Tigre SANDERS JOHN ([id number]) on 07/04/2025 4:35:00 PM G[facility] 07/03/2025 3:48 PM EDT 07/04/2025 4:35 PM EST Cynthia ANSARI ECG ORDERABLES Final Resul t Performing Organization Address City/[facility]/ZIP Co de Phone Number GEMUSE * Troponin I high sensitivity (07/03/2025 11:12 AM EDT) Only the most recent of3 resultswithin the time period is included. [facility] High Sensitivity Troponin I 32 <=54 ng/L LAB CHEMISTRY METHOD 07/03/2025 12:31 PM EDT [facility] Blood Venous blood specimen / Unknown Venipuncture / Unknown 07/03/2025 11:12 AM EDT 07/03/2025 11:56 AM EDT Narrative [facility] - 07/03/2025 12:31 PM EDT High levels of biotin in samples may falsely decrease hsTroponin values. Use caution when interpreting hsTroponin results in patients taking biotin who exhibit renal impairment (eGFR <60) or in patients taking more than 20 mg/day of biotin. Anisa ANSARI LAB BLOOD ORDERABLES Final R esult [facility] [address] [place] [address], * CT Angio Chest wo and/or w [...] Signed Date: 07/03/2025 11:16 ET Workstation ID: [id number] Transcribed By: Self Edit Transcribed Date: 07/03/2025 [...] Signed Date: 07/03/2025 11:16 ET Workstation ID: [id number] Transcribed By: Self Edit Transcribed Date: 07/03/2025 11:08 ET Anisa ANSARI IMG CT PROCEDURES Final Resu lt * Respiratory virus panel molecular study (07/03/2025 10:33 AM EDT) Adenovirus Detection by PCR Not Detected Not Detected LAB MICROBIOLOGY METHOD 07/03/2025 11:44 AM EDT [facility] Influenza A PCR Not Detected Not Detected LAB MICROBIOLOGY METHOD 07/03/2025 11:44 AM EDT [facility] Influenza B PCR Not Detected Not Detected LAB MICROBIOLOGY METHOD 07/03/2025 11:44 AM EDT [facility] Coronavirus 229E Not Detected Not Detected LAB MICROBIOLOGY METHOD 07/03/2025 11:44 AM EDT [facility] Coronavirus HKU1 Not Detected Not Detected LAB MICROBIOLOGY METHOD 07/03/2025 11:44 AM EDT [facility] Coronavirus OC43 Not Detected Not Detected LAB MICROBIOLOGY METHOD 07/03/2025 11:44 AM EDT [facility] Coronavirus NL63 Not Detected Not Detected LAB MICROBIOLOGY METHOD 07/03/2025 11:44 AM EDT [facility] Parainfluenza Virus 1 Not Detected Not Detected LAB MICROBIOLOGY METHOD 07/03/2025 11:44 AM EDT [facility] Parainfluenza Virus 2 Not Detected Not Detected LAB MICROBIOLOGY METHOD 07/03/2025 11:44 AM EDT [facility] Parainfluenza Virus 3 Not Detected Not Detected LAB MICROBIOLOGY METHOD 07/03/2025 11:44 AM EDT [facility] Parainfluenza Virus 4 Not Detected Not Detected LAB MICROBIOLOGY METHOD 07/03/2025 11:44 AM EDT [facility] RSV PCR Not Detected Not Detected LAB MICROBIOLOGY METHOD 07/03/2025 11:44 AM EDT [facility] Human Metapneumovirus A and B Not Detected Not Detected LAB MICROBIOLOGY METHOD 07/03/2025 11:44 AM EDT [facility] Rhinovirus/Entero virus Not Detected Not Detected LAB MICROBIOLOGY METHOD 07/03/2025 11:44 AM EDT [facility] Bordetella pertussis Not Detected Not Detected LAB MICROBIOLOGY METHOD 07/03/2025 11:44 AM EDT [facility] Bordetella parapertussis Not Detected Not Detected LAB MICROBIOLOGY METHOD 07/03/2025 11:44 AM EDT [facility] Mycoplasma pneumo by PCR Not Detected Not Detected LAB MICROBIOLOGY METHOD 07/03/2025 11:44 AM EDT [facility] Chlamydia pneumoniae Not Detected Not Detected LAB MICROBIOLOGY METHOD 07/03/2025 11:44 AM EDT [facility] SARS COV-2 Not Detected Not Detected LAB MICROBIOLOGY METHOD 07/03/2025 11:44 AM EDT [facility] Swab Both anterior nares / Unknown Non-blood Collection / Unknown 07/03/2025 10:33 AM EDT 07/03/2025 10:54 AM EDT [facility] - 07/03/2025 11:44 AM EDT Testing was performed using the Gu[place]illappse Respiratory Pathogen PCR Assay. All results must [...] that are below the limit of detection. Anisa ANSARI LAB MICROBIOLOGY - GENERAL O RDERABLES Final Result [facility] ([facility] [address] [place] [address], * XR Chest 2 Views (07/03/2025 10:12 [...] Signed Date: 07/03/2025 10:50 ET Workstation ID: [id number] Transcribed By: Self Edit Transcribed Date: 07/03/2025 [...] ribs which is likely unchanged. Procedure Note Lion Lee MD - 07/03/2025 EXAMINATION: CHEST CLINICAL INFORMATION: [...] Signed Date: 07/03/2025 10:50 ET Workstation ID: [id number] Transcribed By: Self Edit Transcribed Date: 07/03/2025 [...] Signed Date: 07/03/2025 10:11 ET Workstation ID: [id number] Transcribed By: Self Edit Transcribed Date: 07/03/2025 [...] Signed Date: 07/03/2025 10:11 ET Workstation ID: [id number] Transcribed By: Self Edit Transcribed Date: 07/03/2025 10:09 ET Anisa ANSARI CV VASCULAR PROCEDURES Final Result * (ABNORMAL) CBC auto differential (07/03/2025 9:41 AM EDT) [facility] WBC 7.4 4.8 - 10.8 K/mcL LAB HEMETOLOGY [facility] RBC 4.50 3.80 - 4.80 M/mcL LAB HEMETOLOGY METHOD 07/03/2025 9:55 AM [facility] Hemoglobin 11.8 11.5 - 16.0 g/dL LAB HEMETOLOGY METHOD 07/03/2025 9:[facility] Hematocrit 38.6 35.0 - 47.0 % LAB HEMETOLOGY METHOD 07/03/2025 9:55 AM [facility] MCV 85.6 79.0 - 98.0 FL LAB HEMETOLOGY METHOD 07/03/2025 9:55 AM [facility] MCH 26.2(L) 27.0 - 32.0 pcg LAB HEMETOLOGY METHOD 07/03/2025 9:55 AM [facility] MCHC 30.6(L) 32.0 - 37.0 g/dL LAB HEMETOLOGY METHOD 07/03/2025 9:55 AM [facility] RDW 14.5 11.0 - 15.0 % LAB HEMETOLOGY METHOD 07/03/2025 9:55 AM [facility] Platelets 201 130 - 400 K/mcL LAB HEMETOLOGY METHOD 07/03/2025 9:55 AM [facility] MPV 10.2 7.0 - 11.0 FL LAB HEMETOLOGY METHOD 07/03/2025 9:55 AM [facility] NRBC 0.0 <1.0 % LAB HEMETOLOGY METHOD 07/03/2025 9:55 AM [facility] NRBC Absolute 0.00 <0.10 K/mcL LAB HEMETOLOGY METHOD 07/03/2025 9:55 AM [facility] Neutrophils Relative 62.2 % LAB HEMETOLOGY METHOD 07/03/2025 9:55 AM [facility] Lymphocytes Relative 27.9 % LAB HEMETOLOGY METHOD 07/03/2025 9:55 AM [facility] Monocytes Relative 6.9 % LAB HEMETOLOGY METHOD 07/03/2025 9:55 AM [facility] Eosinophils Relative 2.0 % LAB HEMETOLOGY METHOD 07/03/2025 9:55 AM [facility] Basophils Relative 0.5 % LAB HEMETOLOGY METHOD 07/03/2025 9:55 AM [facility] Immature Granulocytes Relative 0.5 % LAB HEMETOLOGY METHOD 07/03/2025 9:55 AM [facility] Neutrophils Absolute 4.57 1.50 - 7.00 K/mcL LAB HEMETOLOGY METHOD 07/03/2025 9:55 AM EDT [facility] Lymphocytes Absolute 2.05 1.00 - 5.00 K/[facility] LAB HEMETOLOGY METHOD 07/03/2025 9:55 AM EDT [facility] Monocytes Absolute 0.51 0.20 - 1.00 K/[facility] LAB HEMETOLOGY METHOD 07/03/2025 9:55 AM EDT [facility] Eosinophils Absolute 0.15 0.00 - 0.50 K/[facility] LAB HEMETOLOGY METHOD 07/03/2025 9:55 AM EDT [facility] Basophils Absolute 0.04 0.00 - 0.20 K/[facility] LAB HEMETOLOGY METHOD 07/03/2025 9:55 AM EDT [facility] Immature Granulocytes Absolute 0.04(H) 0.00 - 0.03 K/[facility] LAB HEMETOLOGY METHOD 07/03/2025 9:55 AM EDT [facility] Blood Venous blood specimen / Unknown Venipuncture / Unknown 07/03/2025 9:41 AM EDT 07/03/2025 9:47 AM EDT Jennifer Mendes MD LAB BLOOD ORDERABLES Final Resul t [facility] [address] [place] [address], * D-dimer, quantitative (07/03/2025 9:41 AM EDT) D-Dimer, Quant (D-DU) 230 <=230 ng/mL DDU LAB COAGULATION METHOD 07/03/2025 9:59 AM EDT [facility] Blood Venous blood specimen / Unknown Venipuncture / Unknown 07/03/2025 9:41 AM EDT 07/03/2025 9:47 AM EDT Narrative [facility] - 07/03/2025 9:59 AM EDT D-Dimer <230 ng/mL (D-Dimer units) is the threshold for exclusion of DVT/PE. D-Dimer may be elevated in: Critically ill, severely infected, trauma patients, DIC, acute CVA, acute [place], unstable angina, AF, old age, , and smoking. D-Dimer may be decreased with: Initiation of heparin therapy and oral anticoagulants. us Anisa ANSARI LAB BLOOD ORDERABLES Final R esult Performing Organization Address [facility]/ZIP Co de Phone Number [facility] [address] [place] [address], [place] [phone] * hCG, serum, qualitative (07/03/2025 9:41 AM EDT) Pathologist [facility] hCG Qual Negative Negative 07/03/2025 10:11 AM EDT [facility] Blood Venous blood specimen / Unknown Venipuncture / Unknown 07/03/2025 9:41 AM EDT 07/03/2025 9:47 AM EDT us Anisa ANSARI LAB BLOOD ORDERABLES Final R esult Performing Organization Address [facility] Co de Phone Number [facility] [address] [place] [address], [place] [phone] * B-type natriuretic peptide (07/03/2025 9:41 AM EDT) [facility] BNP <2 <=100 pcg/mL LAB CHEMISTRY METHOD 07/03/2025 10:34 AM EDT [facility] Blood Venous blood specimen / Unknown Venipuncture / Unknown 07/03/2025 9:41 AM EDT 07/03/2025 9:47 AM EDT us Jennifer Mendes MD LAB BLOOD ORDERABLES Final Resul t Performing Organization Address City/[facility] Co de Phone Number [facility] [address] [place] [address], [place] [phone] * Magnesium (07/03/2025 9:41 AM EDT) Pathologist [facility] Magnesium 2.3 1.9 - 2.6 mg/dL LAB CHEMISTRY METHOD 07/03/2025 10:24 AM EDT [facility] Blood Venous blood specimen / Unknown Venipuncture / Unknown 07/03/2025 9:41 AM EDT 07/03/2025 9:47 AM EDT us Jennifer Mendes MD LAB BLOOD ORDERABLES Final Resul t Performing Organization Address City/[facility]/ZIP Co de Phone Number [facility] [address] [place] [address], [place] [phone] * Lipase (07/03/2025 9:41 AM EDT) [facility] Lipase 15 13 - 75 unit/L LAB CHEMISTRY METHOD 07/03/2025 10:24 AM EDT [facility] Blood Venous blood specimen / Unknown Venipuncture / Unknown 07/03/2025 9:41 AM EDT 07/03/2025 9:47 AM EDT us Jennifer Mendes MD LAB BLOOD ORDERABLES Final Resul t Performing Organization Address [facility]/ZIP Co de Phone Number [facility] [address] [place] [address], [place] [phone] * (ABNORMAL) Comprehensive metabolic panel (07/03/2025 9:41 AM EDT) Pathologist [facility] Sodium 142 133 - 145 mmol/L LAB CHEMISTRY METHOD 07/03/2025 10:24 AM EDT [facility] Potassium 4.1 3.5 - 5.5 mmol/L LAB CHEMISTRY METHOD 07/03/2025 10:24 AM EDT [facility] Chloride 111(H) 96 - 110 mmol/L LAB CHEMISTRY METHOD 07/03/2025 10:24 AM [facility] CO2 26 21 - 32 mmol/L LAB CHEMISTRY METHOD 07/03/2025 10:24 AM [facility] Anion Gap 5 3 - 11 LAB CHEMISTRY METHOD 07/03/2025 10:24 AM [facility] Glucose 120(H) 70 - 100 mg/dL LAB CHEMISTRY METHOD 07/03/2025 10:24 AM [facility] BUN 18 5 - 25 mg/dL LAB CHEMISTRY METHOD 07/03/2025 10:24 AM [facility] Creatinine 0.84 0.50 - 1.10 mg/dL LAB CHEMISTRY METHOD 07/03/2025 10:24 AM [facility] eGFR 85 >=60 mL/min/1. 73m2 LAB CHEMISTRY METHOD 07/03/2025 10:24 AM [facility] Comment:Calculation based on the Chronic Kidney Disease Epidemiology Collaboration (CKD-EPI) equation refit without adjustment for race. BUN/Creatinine Ratio 21.4 LAB CHEMISTRY METHOD 07/03/2025 10:24 AM [facility] Calcium 8.6 8.5 - 10.5 mg/dL LAB CHEMISTRY METHOD 07/03/2025 10:24 AM [facility] AST (SGOT) 17 10 - 42 unit/L LAB CHEMISTRY METHOD 07/03/2025 10:24 AM [facility] ALT (SGPT) 22 10 - 60 unit/L LAB CHEMISTRY METHOD 07/03/2025 10:24 AM [facility] Alkaline Phosphatase 137(H) 42 - 121 unit/L LAB CHEMISTRY METHOD 07/03/2025 10:24 AM [facility] Total Protein 7.0 6.0 - 8.0 g/dL LAB CHEMISTRY METHOD 07/03/2025 10:24 AM [facility] Albumin 3.6 3.2 - 5.0 g/dL LAB CHEMISTRY METHOD 07/03/2025 10:24 AM EDT [facility] Total Bilirubin 0.4 0.0 - 1.4 mg/dL LAB CHEMISTRY METHOD 07/03/2025 10:24 AM EDT [facility] Blood Venous blood specimen / Unknown Venipuncture / Unknown 07/03/2025 9:41 AM EDT 07/03/2025 9:47 AM EDT us Jennifer Mendes MD LAB BLOOD ORDERABLES Final Resul t [facility] ([facility] [address] [place] [address], from Last 3 Months Insurance [employer] [facility] Advance Directives * Full Code - Default (Latest Code Status on File) Date Activated Date Inactivated Comments 07/03/2025 1:33 PM 07/04/2025 1:34 PM This is orde r is used when code status has not been discussed with the patient, or code status is otherwise unknown/unconfirmed To update the patient's code status, place a code status order. Do not modify or discontinue any currently active code status orders. Care Teams Green Pipefitter Relationship Specialty Start Date End Date Caridad Louis MD [address] [place] [address] PCP - General Internal Medicine 08/28/21
== END 2025-07-06 10:59 | disposition home or self-care (01) ==
LOC: HO.HOS 10:38
PROVIDERS: PCP Internal Medicine; Visit Provider Orthopaedic Surgery
DX: M25.511 Pain in right shoulder (principal)
CPT/HCPCS: 99213

== ENCOUNTER 2025-07-09 07:51 | Outpatient (AMB) | payer OTHER, SELFPAY ==
--- OUTSIDE RECORDS SUMMARY | 2025-07-03 08:08 | XMS_ITS | Encounter Summary ---
Author Organization [facility] Address [address] [place] [address] Care Team Providers Care Equipment Cleaner Name Role Phone Caridad Louis MD Primary Care Provider [phone] Reason for Referral * Imaging (Routine) - Pending Review Specialty Diagnoses / Procedures Referred By Megha franco Referred To Contact Cardiology Diagnoses Shortness of breath Procedures Transthoracic echocardiogram (TTE) complete with PRN contrast, bubble, strain, and 3D order panel FL TTE W 2D IMAGE COMPLETE W DOPPLER ECHO & COLOR FLOW DOPPLER ECHO FL PROSPER 2D COMPLETE W/CONTRAST OR W & WO CONTRAST WITH DOPPLER Caridad Berry PA [address] [place] [id number] Phone: tel: fax: [facility] Referral ID Status Reason Start Date Expiration Date V isits Requested Visits Authorized [id number] Pending Review 07/04/2025 07/04/2026 1 1 Reason for Visit * Reason Comments Shortness of Breath * Auth/Cert (Routine) Specialty Diagnoses / Procedures Referred By Megha franco Referred To Contact Diagnoses Shortness of breath Mild intermittent asthma with exacerbation Asthma exacerbation Bilateral lower extremity edema Procedures FL COMPREHENSIVE AUDIOMETRY THRESHOLD EVALUATION AND SPEECH RECOGNITION Brie Pollard MD [address] [place] [address] Phone: tel: fax: [facility]rology [address] [place] [address] Phone: tel: Referral ID Status Reason Start Date Expiration Date Visits Re quested Visits Authorized [id number] 1 1 Encounter Details Date Type Department Care Team (Latest Contact Info) Description 07/03/2025 9:08 AM EDT - 07/04/2025 11:29 AM EST Hospital Encounter [facility] [address] [place] [address] Jennifer Mendes MD [address] [place] [id number] Brie Pollard MD [address] [place] [phone] Marimar Mnocada MD [address] [place] [address] Mild intermittent asthma with exacerbation (Primary Dx); [...] 9:03 AM EDT Bobby Gray RN * Bremer Suicide Severity Rating Scale (Screener/Recent Self-Report) Question [...] She is followed by Dr. Rowland at [facility] pulmonary. She will require additional outpatient [...] p.o. nightly.Again, short- term follow-up with primary supervisor floor assembly. Bilateral lower extremity edema Venous duplex negative [...] Follow-Up Instructions and Recommendations Alecia Rowland MD [address] [facility] PULMONARY [facility] [address] Contact your supervisor floor assembly for hospital follow up appointment Discharge Procedure Orders Provider: Order Specific Question Answer Comments Instructions for follow-up: Contact your supervisor floor assembly for hospital follow up appointment Transthoracic echocardiogram [...] In what REGION should this be scheduled? [facility] [[id number]] Release to patient Immediate [1] There are [...] Your Medications These medications were sent to [id number] - [address] AT [address] [address] Hours: 24-hours furosemide 40 mg tablet methylPREDNISolone [...] Not Detected Not Detected 07/03/25 10:33 Specific [place], Urine 1.003 - 1.030 1.018 07/03/25 16:40 [...] Signed Date: 07/03/2025 11:16 ET Workstation ID: [id number] Transcribed By: Self Edit Transcribed Date: 07/03/2025 11:08 ET XR Chest 2 Views [[id number]] Collected: 07/03/25 1049 Order Status: Completed Updated: [...] Signed Date: 07/03/2025 10:50 ET Workstation ID: [id number] Transcribed By: Self Edit Transcribed Date: 07/03/2025 10:49 ET Vascular US Duplex Lower Extremity Venous Bilateral [[id number]] Collected: 07/03/25 1009 Order Status: Completed Updated: [...] no need for antibiotics she follows with [facility] pulmonology. No evidence of hypoxia currently [...] but may increase your rene. Contact your supervisor floor assembly for hospital follow up appointment. Also please contact [facility] to evaluate your CPAP machine. You may need a change of settings. An echocardiogram has been ordered. They will contact you Saturday to schedule this. Recommend Low salt diet to help decrease water retention. Instructions above. * Attachments The following attachments cannot be sent through Care Everywhere. * Asthma: General Info (Croatian) * Dealing With Asthma Triggers: Video (Croatian) * Asthma: Myths About Inhaled Steroids: Video (Croatian) * Low Sodium Diet (Croatian) * Low Sodium Foods: General Info (Croatian) documented in this encounter Medications at Time of Discharge ARIPiprazole (ABILIFY) 20 mg tablet Take 1 tablet (20 mg total) by mouth 1 (one) time each day. clonazePAM (KlonoPIN) 1 mg tablet Take 1 tablet (1 mg total) by mouth 2 (two) times a day. furosemide (LASIX) 40 mg tablet Take 1 tablet (40 mg total) by mouth 1 (one) time each day for 7 days. 7 each 07/04/2025 5 lamoTRIgine (LaMICtal) 200 mg tablet Take 1 tablet (200 mg total) by mouth 2 (two) times a day. methylPREDNISolone (MEDROL DOSPAK) 4 mg tablet Take as directed on package. 21 tablet 07/04/2025 5 mirtazapine (REMERON ADA-TAB) 15 mg disintegrating tablet Dissolve 1 tablet (15 mg total) on top of the tongue at bedtime. montelukast (SINGULAIR) 10 mg tablet Take 1 tablet (10 mg total) by mouth at bedtime. 30 each 07/04/2025 5 nortriptyline (PAMELOR) 10 mg capsule Take 1 capsule (10 mg total) by mouth at bedtime. pregabalin (LYRICA) 100 mg capsule Take 1 capsule (100 mg total) by mouth 3 (three) times a day. sertraline (ZOLOFT) 50 mg tablet Take 1 tablet (50 mg total) by mouth 1 (one) time each day. documented as of this encounter Ordered Prescriptions [...] Relationship) for DC Planning [place] Foss spouse [phone] Living Arrangements Spouse/significant other Type of Residence [...] infectious concerns): [] Yes / [x] No Data Base Administrator: [] Yes / [x] No If YES, Cardiac Rhythm: [] NSR, [] SB, [] ST, [] A-FIB, [] A-Flutter, [] Pacemaker, [] 1st Degree HB, [] 2nd Degree HB, [] 3rd Degree HB Reason for Data Base Administrator: VS: Visit Vitals BP 98/69 (Patient Position: [...] Implantation of electronic stimulator CHOLECYSTECTOMY 06/02/2010 PROCEDURE: FL LAPAROSCOPY SURG CHOLECYSTECTOMY COLONOSCOPY PROCEDURE: HISTORICAL COLONOSCOPY; COMMENT: 08/24/20, 11/27/16, 04/2013, 2007 ESOPHAGOGASTRODUODENOSCOPY 10/24/2018 PROCEDURE: FL ESOPHAGOGASTRODUODENOSCOPY TRANSORAL DIAGNOSTIC ESOPHAGOGASTRODUODENOSCOPY 02/20/2016 PROCEDURE: FL ESOPHAGOGASTRODUODENOSCOPY TRANSORAL DIAGNOSTIC EYE SURGERY Right 1979 PROCEDURE: HISTORICAL EYE SURGERY; COMMENT: Right eye strabismus surgery for amblyopia GASTRIC BYPASS PROCEDURE: FL GASTRIC RSTCV W/BYP W/SM INT RCNSTJ LIMIT ABSRPJ OTHER SURGICAL HISTORY 03/10/2018 PROCEDURE: FL RPR PARAESOPH HIATAL HERNIA W/LAPT W/O MESH OTHER SURGICAL HISTORY 05/23/2017 PROCEDURE: FL ENDOSCOPY UPPER SMALL INTESTINE OTHER SURGICAL HISTORY 11/27/2016 PROCEDURE: FL ENDOSCOPY UPPER SMALL INTESTINE OTHER SURGICAL HISTORY 05/01/2012 PROCEDURE: FL EGD FLEXIBLE TRANSNASAL W/BIOPSY SINGLE/MULTIPLE OTHER SURGICAL HISTORY 2000 PROCEDURE: FL LAPS GSTR RSTCV PX W/BYP ANDREW-EN-Y LIMB [...] pain LUQ pain DX:LUQ pain Mood disorder ([facility] V24) DX:Mood disorder ([facility]) Morbid obesity with BMI of 50.0-59.9, adult ([facility] V24, [facility] V28) DX:Morbid obesity with BMI of 50.0-59.9, adult ([facility]) Nausea DX:Nausea Neuropathy DX:Neuropathy Non-cardiac chest pain DX:Non-cardiac chest pain Obstructive sleep apnea DX:Obstructive sleep apnea Otitis media of left ear DX:Otitis media of left ear Pneumonia DX:Pneumonia Rectovaginal fistula DX:Rectovaginal fistula Recurrent UTI DX:Recurrent UTI Seasonal allergic rhinitis DX:Seasonal allergic rhinitis Severe obesity ([facility] V24, [facility]/HCC V28) DX:Severe obesity (HCC) Thrombocytopenia (CMS/HCC V24) DX:Thrombocytopenia (HCC) Vaginal discharge DX:Vaginal discharge Weight gain following gastric bypass surgery DX:Weight gain following gastric bypass surgery [2] Past Surgical History: Procedure Laterality Date BLADDER SURGERY 2016 PROCEDURE: HISTORICAL BLADDER SURGERY; COMMENT: Implantation of electronic stimulator CHOLECYSTECTOMY 06/02/2010 PROCEDURE: FL LAPAROSCOPY SURG CHOLECYSTECTOMY COLONOSCOPY PROCEDURE: HISTORICAL COLONOSCOPY; COMMENT: 08/24/20, 11/27/16, 04/2013, 2007 ESOPHAGOGASTRODUODENOSCOPY 10/24/2018 PROCEDURE: FL ESOPHAGOGASTRODUODENOSCOPY TRANSORAL DIAGNOSTIC ESOPHAGOGASTRODUODENOSCOPY 02/20/2016 PROCEDURE: FL ESOPHAGOGASTRODUODENOSCOPY TRANSORAL DIAGNOSTIC EYE SURGERY Right 1979 PROCEDURE: HISTORICAL EYE SURGERY; COMMENT: Right eye strabismus surgery for amblyopia GASTRIC BYPASS PROCEDURE: FL GASTRIC RSTCV W/BYP W/SM INT RCNSTJ LIMIT ABSRPJ OTHER SURGICAL HISTORY 03/10/2018 PROCEDURE: FL RPR PARAESOPH HIATAL HERNIA W/LAPT W/O MESH OTHER SURGICAL HISTORY 05/23/2017 PROCEDURE: FL ENDOSCOPY UPPER SMALL INTESTINE OTHER SURGICAL HISTORY 11/27/2016 PROCEDURE: FL ENDOSCOPY UPPER SMALL INTESTINE OTHER SURGICAL HISTORY 05/01/2012 PROCEDURE: FL EGD FLEXIBLE TRANSNASAL W/BIOPSY SINGLE/MULTIPLE OTHER SURGICAL HISTORY 2000 PROCEDURE: FL LAPS GSTR RSTCV PX W/BYP ANDREW-EN-Y LIMB [...] Grandmother Coronary artery disease Maternal Grandfather COTY Samlls 07/03/25 1332 Cosigned by Jennifer Mendes MD [...] PHYSICAL Please contact author [COTY Armstrong] via Audiotoniq/iAgree. Patient: Lisa Foss Admission Date/Time: 07/03/2025 9:08 [...] icterus. Respiratory Exam: Diminished throughout all lung agrawal. No wheezing or crackles Cardiovascular Exam: Regular [...] Signed Date: 07/03/2025 11:16 ET Workstation ID: [id number] Transcribed By: Self Edit Transcribed Date: 07/03/2025 11:08 ET XR Chest 2 Views Final Result Limited study. No definite acute pneumonia or edema. -------- FINAL REPORT -------- Dictated By: Lion Lee Dictated Date: 07/03/2025 10:49 ET Assigned Physician: Lion Lee Reviewed and Electronically Signed By: Lion Lee Signed Date: 07/03/2025 10:50 ET Workstation ID: [id number] Transcribed By: Self Edit Transcribed Date: 07/03/2025 10:49 ET Vascular US Duplex Lower Extremity Venous Bilateral Final Result No deep venous thrombosis demonstrated. -------- FINAL REPORT -------- Dictated By: Lion Lee Dictated Date: 07/03/2025 10:09 ET Assigned Physician: Lion Lee Reviewed and Electronically Signed By: Lion Lee Signed Date: 07/03/2025 10:11 ET Workstation ID: [id number] Transcribed By: Self Edit Transcribed Date: 07/03/2025 [...] 20 mg BID --Outpatient f/u with pulmonology --COMPUTED TOMOGRAPHY TECHNOLOGIST eval due to pt feeling as though [...] onward) Start Ordered 07/03/25 1330 Adult diet [facility]; Cardiac; Sodium 2 gm Restriction Diet effective now Question Answer Comment Location [facility] Diet Type (req) Cardiac Diet Type (cardiac) Sodium 2 gm Restriction 07/03/25 1331 [x] Medication reconciliation Health Care proxy with Phone number Neva Hannah [phone] Total time spent performing chart review, assessing the patient, documenting, order editor, discussing with attending MD/bedside RN/ICC, arranging care [...] pain LUQ pain DX:LUQ pain Mood disorder ([facility] V24) DX:Mood disorder (HCC) Morbid obesity with BMI of 50.0-59.9, adult (CMS/HCC V24, CMS/HCC V28) DX:Morbid obesity with BMI of 50.0-59.9, adult ([facility]) Nausea DX:Nausea Neuropathy DX:Neuropathy Non-cardiac chest pain [...] Implantation of electronic stimulator CHOLECYSTECTOMY 06/02/2010 PROCEDURE: FL LAPAROSCOPY SURG CHOLECYSTECTOMY COLONOSCOPY PROCEDURE: HISTORICAL COLONOSCOPY; COMMENT: 08/24/20, 11/27/16, 04/2013, 2007 ESOPHAGOGASTRODUODENOSCOPY 10/24/2018 PROCEDURE: FL ESOPHAGOGASTRODUODENOSCOPY TRANSORAL DIAGNOSTIC ESOPHAGOGASTRODUODENOSCOPY 02/20/2016 PROCEDURE: FL ESOPHAGOGASTRODUODENOSCOPY TRANSORAL DIAGNOSTIC EYE SURGERY Right 1980 PROCEDURE: HISTORICAL EYE SURGERY; COMMENT: Right eye strabismus surgery for amblyopia GASTRIC BYPASS PROCEDURE: FL GASTRIC RSTCV W/BYP W/SM INT RCNSTJ LIMIT ABSRPJ OTHER SURGICAL HISTORY 03/10/2018 PROCEDURE: FL RPR PARAESOPH HIATAL HERNIA W/LAPT W/O MESH OTHER SURGICAL HISTORY 05/23/2017 PROCEDURE: FL ENDOSCOPY UPPER SMALL INTESTINE OTHER SURGICAL HISTORY 11/27/2016 PROCEDURE: FL ENDOSCOPY UPPER SMALL INTESTINE OTHER SURGICAL HISTORY 05/01/2012 PROCEDURE: FL EGD FLEXIBLE TRANSNASAL W/BIOPSY SINGLE/MULTIPLE OTHER SURGICAL HISTORY 2000 PROCEDURE: FL LAPS GSTR RSTCV PX W/BYP ANDREW-EN-Y LIMB [...] * Lavender tube (07/04/2025 5:42 AM EST) [facility] Extra Tube Hold for add-ons. 07/04/2025 8:01 AM EST [facility] Comment:Auto resulted. Blood Venous blood specimen / Unknown Venipuncture / Unknown 07/04/2025 5:42 AM EST 07/04/2025 6:49 AM EST Marimar Moncada MD LAB BLOOD ORDERABLES Final Resul t [facility] [address] [place] [address], [place] [phone] * (ABNORMAL) Basic metabolic panel (07/04/2025 5:42 AM EST) [facility] Sodium 140 133 - 145 mmol/L LAB CHEMISTRY METHOD 07/04/2025 7:33 AM [facility] Potassium 4.4 3.5 - 5.5 mmol/L LAB CHEMISTRY METHOD 07/04/2025 7:33 AM [facility] Chloride 106 96 - 110 mmol/L LAB CHEMISTRY METHOD 07/04/2025 7:33 AM [facility] CO2 28 21 - 32 mmol/L LAB CHEMISTRY METHOD 07/04/2025 7:33 AM [facility] Anion Gap 6 3 - 11 LAB CHEMISTRY METHOD 07/04/2025 7:33 AM [facility] Glucose 106(H) 70 - 100 mg/dL LAB CHEMISTRY METHOD 07/04/2025 7:33 AM EST [facility] BUN 14 5 - 25 mg/dL LAB CHEMISTRY METHOD 07/04/2025 7:33 AM [facility] Creatinine 0.76 0.50 - 1.10 mg/dL LAB CHEMISTRY METHOD 07/04/2025 7:33 AM [facility] eGFR 96 >=60 mL/min/1. 73m2 LAB CHEMISTRY METHOD 07/04/2025 7:33 AM [facility] Comment:Calculation based on the Chronic Kidney Disease Epidemiology Collaboration (CKD-EPI) equation refit without adjustment for race. BUN/Creatinine Ratio 18.4 LAB CHEMISTRY METHOD 07/04/2025 7:33 AM [facility] Calcium 8.9 8.5 - 10.5 mg/dL LAB CHEMISTRY METHOD 07/04/2025 7:33 AM [facility] Blood Venous blood specimen / Unknown Venipuncture / Unknown 07/04/2025 5:42 AM EST 07/04/2025 6:47 AM EST us Cynthia ANSARI LAB BLOOD ORDERABLES Final Result [facility] [address] [place] [address], [place] [phone] * (ABNORMAL) Culture urine (07/03/2025 4:40 PM EDT) Culture, Urine >=100,000 CFU/mL Escherichia coli(A) SOTO 07/05/2025 11:25 AM [facility] Comment: This is an edited result. Previous organism was Gram negative bacilli on 07/04/2025 at 1248 EST. Urine Urine specimen obtained by clean catch procedure / Unknown Non-blood Collection / Unknown 07/03/2025 4:40 PM EDT 07/03/2025 5:15 PM EDT Narrative [facility] - 07/05/2025 11:25 AM EST Additional [...] O RDERABLES Final Result Performing Organization Address City/[facility]/ZIP Co de Phone Number [facility] [address] [place] [address], * Goldberg urine culture tube (07/03/2025 4:40 PM EDT) Extra Tube Hold for add-ons. 07/03/2025 7:01 PM EDT [facility] Comment:Auto resulted. Urine Urine specimen obtained by clean catch procedure / Unknown Non-blood Collection / Unknown 07/03/2025 4:40 PM EDT 07/03/2025 5:05 PM EDT Anisa ANSARI LAB URINE ORDERABLES Final R esult Performing Organization Address [facility]/ZIP Co de Phone Number [facility] [address] [place] [address], [place] [phone] * (ABNORMAL) Urinalysis with reflex microscopic and culture (07/03/2025 4:40 PM EDT) Specific [place] Urine 1.018 1.003 - 1.030 LAB URINALYSIS - AUTOMATED METHOD 07/03/2025 5:15 PM [facility] pH, Urine 6.0 5.0 - 8.0 pH LAB URINALYSIS - AUTOMATED METHOD 07/03/2025 5:15 PM [facility] Leukocytes, Urine Small(A) Negative LAB URINALYSIS - AUTOMATED METHOD 07/03/2025 5:15 PM [facility] Nitrite, Urine Negative Negative LAB URINALYSIS - AUTOMATED METHOD 07/03/2025 5:15 PM [facility] Protein, Urine Negative <=Trace mg/dL LAB URINALYSIS - AUTOMATED METHOD 07/03/2025 5:15 PM [facility] Glucose, Urine Negative Negative mg/dL LAB URINALYSIS - AUTOMATED METHOD 07/03/2025 5:15 PM [facility] Ketones, Urine Negative Negative mg/dL LAB URINALYSIS - AUTOMATED METHOD 07/03/2025 5:15 PM [facility] Urobilinogen, Urine 0.2 0.2 - 1.0 mg/dL LAB URINALYSIS - AUTOMATED METHOD 07/03/2025 5:15 PM [facility] Bilirubin, Urine Negative Negative LAB URINALYSIS - AUTOMATED METHOD 07/03/2025 5:15 PM [facility] Blood, Urine Negative Negative LAB URINALYSIS - AUTOMATED METHOD 07/03/2025 5:15 PM [facility] RBC, Urine 9.5(H) 0 - 4 /HPF LAB URINALYSIS - AUTOMATED METHOD 07/03/2025 5:15 PM [facility] WBC, Urine 3.1 0 - 4 /HPF LAB URINALYSIS - AUTOMATED METHOD 07/03/2025 5:15 PM EDT [facility] Squamous Epithelial, Urine 53 0 - 60 /LPF LAB URINALYSIS - AUTOMATED METHOD 07/03/2025 5:15 PM EDT [facility] Bacteria, Urine Few(A) Negative /HPF LAB URINALYSIS - AUTOMATED METHOD 07/03/2025 5:15 PM EDT [facility] Hyaline Casts, Urine 0.8 0 - 3 /LPF LAB URINALYSIS - AUTOMATED METHOD 07/03/2025 5:15 PM EDT [facility] Urine Urine specimen obtained by clean catch procedure / Unknown Non-blood Collection / Unknown 07/03/2025 4:40 PM EDT 07/03/2025 5:05 PM EDT Anisa ANSARI LAB URINE ORDERABLES Final R esult [facility] [address] [place] [address], [place] [phone] * ECG 12 lead (07/03/2025 3:48 PM EDT) Ventricular Rate ECG 91 BPM GEMUSE Atrial Rate 91 BPM GEMUSE P-R Interval 178 ms GEMUSE QRS Duration 92 ms GEMUSE Q-T Interval 362 ms GEMUSE QTc 445 ms GEMUSE P Wave Vernon 42 degrees GEMUSE R Vernon -20 degrees GEMUSE T Vernon 9 degrees GEMUSE ECG Interpretation Normal sinus rhythm Voltage criteria for left ventricular hypertrophy Abnormal ECG When compared with ECG of 03-JUL-2025 09:21, (unconfirmed) Poor data quality in current ECG precludes serial comparison Confirmed by Tigre SANDERS JOHN ([id number]) on 07/04/2025 4:35:00 PM GEMUSE 07/03/2025 3:48 PM EDT 07/04/2025 4:35 PM EST Cynthia ANSARI ECG ORDERABLES Final Resul t Performing Organization Address [facility] de Phone Number GEMUSE * Troponin I high sensitivity (07/03/2025 11:12 AM EDT) High Sensitivity Troponin I 32 <=54 ng/L LAB CHEMISTRY METHOD 07/03/2025 12:31 PM EDT [facility] Blood Venous blood specimen / Unknown Venipuncture / Unknown 07/03/2025 11:12 AM EDT 07/03/2025 11:56 AM EDT Narrative [facility] - 07/03/2025 12:31 PM EDT High levels of biotin in samples may falsely decrease hsTroponin values. Use caution when interpreting hsTroponin results in patients taking biotin who exhibit renal impairment (eGFR <60) or in patients taking more than 20 mg/day of biotin. Anisa ANSARI LAB BLOOD ORDERABLES Final R esult Performing Organization Address [facility] Co de Phone Number [facility] [address] [place] [address], [place] [phone] * CT Angio Chest wo and/or w [...] Signed Date: 07/03/2025 11:16 ET Workstation ID: [id number] Transcribed By: Self Edit Transcribed Date: 07/03/2025 [...] Signed Date: 07/03/2025 11:16 ET Workstation ID: [id number] Transcribed By: Self Edit Transcribed Date: 07/03/2025 11:08 ET Anisa ANSARI IMG CT PROCEDURES Final Resu lt * Respiratory virus panel molecular study (07/03/2025 10:33 AM EDT) Adenovirus Detection by PCR Not Detected Not Detected LAB MICROBIOLOGY METHOD 07/03/2025 11:44 AM EDT [facility] Influenza A PCR Not Detected Not Detected LAB MICROBIOLOGY METHOD 07/03/2025 11:44 AM EDT [facility] Influenza B PCR Not Detected Not Detected LAB MICROBIOLOGY METHOD 07/03/2025 11:44 AM EDT [facility] Coronavirus 229E Not Detected Not Detected LAB MICROBIOLOGY METHOD 07/03/2025 11:44 AM EDT [facility] Coronavirus HKU1 Not Detected Not Detected LAB MICROBIOLOGY METHOD 07/03/2025 11:44 AM EDT [facility] Coronavirus OC43 Not Detected Not Detected LAB MICROBIOLOGY METHOD 07/03/2025 11:44 AM EDT [facility] Coronavirus NL63 Not Detected Not Detected LAB MICROBIOLOGY METHOD 07/03/2025 11:44 AM EDT [facility] Parainfluenza Virus 1 Not Detected Not Detected LAB MICROBIOLOGY METHOD 07/03/2025 11:44 AM EDT [facility] Parainfluenza Virus 2 Not Detected Not Detected LAB MICROBIOLOGY METHOD 07/03/2025 11:44 AM EDT [facility] Parainfluenza Virus 3 Not Detected Not Detected LAB MICROBIOLOGY METHOD 07/03/2025 11:44 AM EDT [facility] Parainfluenza Virus 4 Not Detected Not Detected LAB MICROBIOLOGY METHOD 07/03/2025 11:44 AM EDT [facility] RSV PCR Not Detected Not Detected LAB MICROBIOLOGY METHOD 07/03/2025 11:44 AM EDT [facility] Human Metapneumovirus A and B Not Detected Not Detected LAB MICROBIOLOGY METHOD 07/03/2025 11:44 AM EDT [facility] Rhinovirus/Entero virus Not Detected Not Detected LAB MICROBIOLOGY METHOD 07/03/2025 11:44 AM EDT [facility] Bordetella pertussis Not Detected Not Detected LAB MICROBIOLOGY METHOD 07/03/2025 11:44 AM EDT [facility] Bordetella parapertussis Not Detected Not Detected LAB MICROBIOLOGY METHOD 07/03/2025 11:44 AM EDT [facility] Mycoplasma pneumo by PCR Not Detected Not Detected LAB MICROBIOLOGY METHOD 07/03/2025 11:44 AM EDT [facility] Chlamydia pneumoniae Not Detected Not Detected LAB MICROBIOLOGY METHOD 07/03/2025 11:44 AM EDT [facility] SARS COV-2 Not Detected Not Detected LAB MICROBIOLOGY METHOD 07/03/2025 11:44 AM EDT [facility] Swab Both anterior nares / Unknown Non-blood Collection / Unknown 07/03/2025 10:33 AM EDT 07/03/2025 10:54 AM EDT Narrative [facility] - 07/03/2025 11:44 AM EDT Testing was performed using the [employer] Respiratory Pathogen PCR Assay. All results must [...] MICROBIOLOGY - GENERAL O RDERABLES Final Result [facility] ([facility]) [facility] [address] [place] [address], * XR Chest 2 Views (07/03/2025 10:12 [...] Signed Date: 07/03/2025 10:50 ET Workstation ID: [id number] Transcribed By: Self Edit Transcribed Date: 07/03/2025 [...] Signed Date: 07/03/2025 10:50 ET Workstation ID: [id number] Transcribed By: Self Edit Transcribed Date: 07/03/2025 [...] Signed Date: 07/03/2025 10:11 ET Workstation ID: [id number] Transcribed By: Self Edit Transcribed Date: 07/03/2025 [...] Signed Date: 07/03/2025 10:11 ET Workstation ID: [id number] Transcribed By: Self Edit Transcribed Date: 07/03/2025 10:09 ET us Anisa ANSARI CV VASCULAR PROCEDURES Final Result * hCG, serum, qualitative (07/03/2025 9:41 AM EDT) hCG Qual Negative Negative 07/03/2025 10:11 AM EDT [facility] ([facility]) [facility] Blood Venous blood specimen / Unknown Venipuncture / Unknown 07/03/2025 9:41 AM EDT 07/03/2025 9:47 AM EDT Anisa ANSARI LAB BLOOD ORDERABLES Final R esult Performing Organization Address City/[facility]/ZIP Co de Phone Number [facility] [address] [place], [place] [address], [place] [phone] * D-dimer, quantitative (07/03/2025 9:41 AM EDT) Pathologist [facility] D-Dimer, Quant (D-DU) 230 <=230 ng/mL DDU LAB COAGULATION METHOD 07/03/2025 9:59 AM EDT [facility] Blood Venous blood specimen / Unknown Venipuncture / Unknown 07/03/2025 9:41 AM EDT 07/03/2025 9:47 AM EDT Narrative [facility] - 07/03/2025 9:59 AM EDT D-Dimer <230 ng/mL (D-Dimer units) is the threshold for exclusion of DVT/PE. D-Dimer may be elevated in: Critically ill, severely infected, trauma patients, DIC, acute CVA, acute [place], unstable angina, AF, old age, , and smoking. D-Dimer may be decreased with: Initiation of heparin therapy and oral anticoagulants. Anisa ANSARI LAB BLOOD ORDERABLES Final R esult Performing Organization Address City/[facility]/ZIP Co de Phone Number [facility] [address] [place] [address], [place] [phone] * (ABNORMAL) CBC auto differential (07/03/2025 9:41 AM EDT) Pathologist [facility] WBC 7.4 4.8 - 10.8 K/mcL LAB HEMETOLOGY METHOD 07/03/2025 9:55 AM EDT [facility] RBC 4.50 3.80 - 4.80 M/mcL LAB HEMETOLOGY METHOD 07/03/2025 9:55 AM EDT [facility] Hemoglobin 11.8 11.5 - 16.0 g/dL LAB HEMETOLOGY METHOD 07/03/2025 9:55 AM [facility] Hematocrit 38.6 35.0 - 47.0 % LAB HEMETOLOGY METHOD 07/03/2025 9:55 AM [facility] MCV 85.6 79.0 - 98.0 FL LAB HEMETOLOGY METHOD 07/03/2025 9:55 AM [facility] MCH 26.2(L) 27.0 - 32.0 pcg LAB HEMETOLOGY METHOD 07/03/2025 9:55 AM [facility] MCHC 30.6(L) 32.0 - 37.0 g/dL LAB HEMETOLOGY METHOD 07/03/2025 9:55 AM [facility] RDW 14.5 11.0 - 15.0 % LAB HEMETOLOGY METHOD 07/03/2025 9:55 AM [facility] Platelets 201 130 - 400 K/mcL LAB HEMETOLOGY METHOD 07/03/2025 9:55 AM [facility] MPV 10.2 7.0 - 11.0 FL LAB HEMETOLOGY METHOD 07/03/2025 9:55 AM [facility] NRBC 0.0 <1.0 % LAB HEMETOLOGY METHOD 07/03/2025 9:55 AM [facility] NRBC Absolute 0.00 <0.10 K/mcL LAB HEMETOLOGY METHOD 07/03/2025 9:55 AM [facility] Neutrophils Relative 62.2 % LAB HEMETOLOGY METHOD 07/03/2025 9:55 AM [facility] Lymphocytes Relative 27.9 % LAB HEMETOLOGY METHOD 07/03/2025 9:55 AM [facility] Monocytes Relative 6.9 % LAB HEMETOLOGY METHOD 07/03/2025 9:55 AM EDT [facility] Eosinophils Relative 2.0 % LAB HEMETOLOGY METHOD 07/03/2025 9:55 AM EDT [facility] Basophils Relative 0.5 % LAB HEMETOLOGY METHOD [facility]/03[facility]2025 9:[facility] Immature Granulocytes Relative 0.5 % LAB HEMETOLOGY METHOD 07/03/2025 9:55 AM EDT [facility] Neutrophils Absolute 4.57 1.50 - 7.00 K/mcL LAB HEMETOLOGY METHOD 07/03/2025 9:55 AM EDT [facility] Lymphocytes Absolute 2.05 1.00 - 5.00 K/mcL LAB HEMETOLOGY METHOD 07/03/2025 9:55 AM [facility] Monocytes Absolute 0.51 0.20 - 1.00 K/mcL LAB HEMETOLOGY METHOD 07/03/2025 9:55 AM EDT [facility] Eosinophils Absolute 0.15 0.00 - 0.50 K/mcL LAB HEMETOLOGY METHOD 07/03/2025 9:55 AM EDT [facility] Basophils Absolute 0.04 0.00 - 0.20 K/mcL LAB HEMETOLOGY METHOD 07/03/2025 9:55 [facility] Immature Granulocytes Absolute 0.04(H) 0.00 - 0.03 K/mcL LAB HEMETOLOGY METHOD 07/03/2025 9:55 AM EDT [facility] Blood Venous blood specimen / Unknown Venipuncture / Unknown 07/03/2025 9:41 AM EDT 07/03/2025 9:47 AM EDT us Jennifer Mendes MD LAB BLOOD ORDERABLES Final Resul t [facility] [address] [place] [address], * B-type natriuretic peptide (07/03/2025 9:41 AM EDT) BNP <2 <=100 pcg/mL LAB CHEMISTRY METHOD 07/03/2025 10:34 AM EDT [facility] Blood Venous blood specimen / Unknown Venipuncture / Unknown 07/03/2025 9:41 AM EDT 07/03/2025 9:47 AM EDT us Jennifer Mendes MD LAB BLOOD ORDERABLES Final Resul t [facility] [address] [place] [address], * Magnesium (07/03/2025 9:41 AM EDT) Pathologist [facility] Magnesium 2.3 1.9 - 2.6 mg/dL LAB CHEMISTRY METHOD 07/03/2025 10:24 AM EDT [facility] Blood Venous blood specimen / Unknown Venipuncture / Unknown 07/03/2025 9:41 AM EDT 07/03/2025 9:47 AM EDT us Jennifer Mendes MD LAB BLOOD ORDERABLES Final Resul t [facility] [address] [place] [address], [place] [phone] * Lipase (07/03/2025 9:41 AM EDT) Pathologist [facility] Lipase 15 13 - 75 unit/L LAB CHEMISTRY METHOD 07/03/2025 10:24 AM EDT [facility] Blood Venous blood specimen / Unknown Venipuncture / Unknown 07/03/2025 9:41 AM EDT 07/03/2025 9:47 AM EDT us Jennifer Mendes MD LAB BLOOD ORDERABLES Final Resul t [facility] [address] [place] [address], * (ABNORMAL) Comprehensive metabolic panel (07/03/2025 9:41 AM EDT) Sodium 142 133 - 145 mmol/L LAB CHEMISTRY METHOD 07/03/2025 10:24 AM EDT [facility] Potassium 4.1 3.5 - 5.5 mmol/L LAB CHEMISTRY METHOD 07/03/2025 10:24 AM [facility] Chloride 111(H) 96 - 110 mmol/L LAB CHEMISTRY METHOD 07/03/2025 10:24 AM [facility] CO2 26 21 - 32 mmol/L LAB CHEMISTRY METHOD 07/03/2025 10:24 AM [facility] Anion Gap 5 3 - 11 LAB CHEMISTRY METHOD 07/03/2025 10:24 AM [facility] Glucose 120(H) 70 - 100 mg/dL LAB CHEMISTRY METHOD 07/03/2025 10:24 AM [facility] BUN 18 5 - 25 mg/dL LAB CHEMISTRY METHOD 07/03/2025 10:24 AM [facility] Creatinine 0.84 0.50 - 1.10 mg/dL LAB CHEMISTRY METHOD 07/03/2025 10:24 AM [facility] eGFR 85 >=60 mL/min/1. 73m2 LAB CHEMISTRY METHOD 07/03/2025 10:24 AM [facility] Comment:Calculation based on the Chronic Kidney Disease Epidemiology Collaboration (CKD-EPI) equation refit without adjustment for race. BUN/Creatinine Ratio 21.4 LAB CHEMISTRY METHOD 07/03/2025 10:24 AM [facility] Calcium 8.6 8.5 - 10.5 mg/dL LAB CHEMISTRY METHOD 07/03/2025 10:24 [facility] AST (SGOT) 17 10 - 42 unit/L LAB CHEMISTRY METHOD 07/03/2025 10:24 AM EDT [facility] ALT (SGPT) 22 10 - 60 unit/L LAB CHEMISTRY METHOD 07/03/2025 10:24 AM [facility] Alkaline Phosphatase 137(H) 42 - 121 unit/L LAB CHEMISTRY METHOD 07/03/2025 10:24 AM EDT [facility] Total Protein 7.0 6.0 - 8.0 g/dL LAB CHEMISTRY METHOD 07/03/2025 10:24 AM T [facility] Albumin 3.6 3.2 - 5.0 g/dL LAB CHEMISTRY METHOD 07/03/2025 10:24 AM [facility] Total Bilirubin 0.4 0.0 - 1.4 mg/dL LAB CHEMISTRY METHOD 07/03/2025 10:24 AM EDT [facility] Blood Venous blood specimen / Unknown Venipuncture / Unknown 07/03/2025 9:41 AM EDT 07/03/2025 9:47 AM EDT Jennifer Mendes MD LAB BLOOD ORDERABLES Final Resul t [facility] [address] [place] [address], * Troponin I high sensitivity (07/03/2025 9:41 AM EDT) High Sensitivity Troponin I 34 <=54 ng/L LAB CHEMISTRY METHOD 07/03/2025 10:21 AM EDT [facility] Blood Venous blood specimen / Unknown Venipuncture / Unknown 07/03/2025 9:41 AM EDT 07/03/2025 9:47 AM EDT Narrative [facility] - 07/03/2025 10:21 AM EDT High levels of biotin in samples may falsely decrease hsTroponin values. Use caution when interpreting hsTroponin results in patients taking biotin who exhibit renal impairment (eGFR <60) or in patients taking more than 20 mg/day of biotin. us Jennifer Mendes MD LAB BLOOD ORDERABLES Final Resul t Performing Organization Address [facility] de Phone Number [facility] [address] [place] [address], * Troponin I high sensitivity (07/03/2025 9:41 AM EDT) [facility] High Sensitivity Troponin I 35 <=54 ng/L LAB CHEMISTRY METHOD 07/03/2025 10:21 AM EDT [facility] Blood Venous blood specimen / Unknown Venipuncture / Unknown 07/03/2025 9:41 AM EDT 07/03/2025 9:47 AM EDT Narrative [facility] - 07/03/2025 10:21 AM EDT High levels of biotin in samples may falsely decrease hsTroponin values. Use caution when interpreting hsTroponin results in patients taking biotin who exhibit renal impairment (eGFR <60) or in patients taking more than 20 mg/day of biotin. us Jennifer Mendes MD LAB BLOOD ORDERABLES Final Resul t Performing Organization Address [facility] Phone Number [facility] [address] [place] [address], * ECG 12 lead (07/03/2025 9:21 AM EDT) [facility] Ventricular Rate ECG 85 BPM GEMUSE Atrial Rate 85 BPM GEMUSE P-R Interval 330 ms GEMUSE QRS Duration 86 ms GEMUSE Q-T Interval 356 ms GEMUSE QTc 423 ms GEMUSE P Wave Vernon 45 degrees GEMUSE R Vernon -23 degrees GEMUSE T Vernon 2 degrees GEMUSE ECG Interpretation Poor data quality, interpretation may be adversely affected Normal sinus rhythm Abnormal ECG When compared with ECG of 11-JUL-2023 16:08, Electronic ventricular pacemaker has replaced Sinus rhythm Confirmed by Tigre SANDERS JOHN ([id number]) on 07/04/2025 4:33:00 PM GEMUSE 07/03/2025 9:21 [...] documented as of this encounter Care Teams Equipment Cleaner Relationship Specialty Start Date End Date Caridad Louis MD [address] [place] [address] PCP - General Internal Medicine 08/28/21 documented as of this encounter
--- OUTSIDE RECORDS SUMMARY | 2025-07-09 07:53 | XMS_ITS | Encounter Summary ---
Author Organization [facility] Address [address] [place] [address] Care Team Providers Care Return To Vendor Name Role Phone Caridad Louis MD Primary Care Provider +1- [phone] Encounter Details Date Type Department Care Team (Late st Contact Info) Description 09/03/2024 Co.Import Message [facility] Financial Counseling Department [address] [place] [phone] Mychart, Generic Provider [address] [place], [place] [id number] Financial Assistance Social History Tobacco Use Types [...] on filedocumented in this encounter Care Teams Return To Vendor Relationship Specialty Start Date End Date Caridad Louis MD [address] [place] [address] PCP - General Internal Medicine 05/05/24 documented as of this encounter
--- OUTSIDE RECORDS SUMMARY | 2025-07-09 07:53 | XMS_ITS | Clinical Summary ---
Author Organization [facility] Address [address] [facility] [address] [place] [address] Phone Care Team Providers Care Leather Staker Name Role Phone Caridad Louis MD Primary [...] huff Payer ID:Not on file Type:PPO Address: [place] [id number] GENERIC COMMERCIAL GENERIC COMMERCIAL GENERIC COMMERCIAL GENERIC COMMERCIAL GENERIC COMMERCIAL GENERIC COMMERCIAL GENERIC COMMERCIAL GENERIC COMMERCIAL Care Teams Leather Staker Relationship Specialty Start Date End Date Caridad Louis MD PCP - General Internal Medicine 05/01/18 Additional Source Comments The information contained in this document represents components of the legal health record. It is not the complete legal health record.[facility]
--- OUTSIDE RECORDS SUMMARY | 2025-07-09 07:54 | XMS_ITS | Encounter Summary ---
Author Organization [facility] Address [address] [place] [address] Phone Care Team Providers Care Regulatory Affairs Analyst Name Role Phone Caridad Louis MD Primary Care Provider + Encounter Details Date Type Department Care Team (Late st Contact Info) Description 03/10/2019 Procedure Pass [facility]PT [address] [facility], 4th [place] [address] Social History Tobacco Use Types Packs/Day Years [...] on filedocumented in this encounter Care Teams Regulatory Affairs Analyst Relationship Specialty Start Date End Date Caridad Louis MD PCP - General Internal Medicine 05/01/18 documented as of this encounter Additional Source Comments The information contained in this document represents components of the legal health record. It is not the complete legal health record.[facility]
--- OUTSIDE RECORDS SUMMARY | 2025-07-09 07:54 | XMS_ITS | Encounter Summary ---
Author Organization [facility] Address [address] [facility] [address] [place] [address] Phone Care Team Providers Care Mirror Silverer Name Role Phone Caridad Louis MD Primary Care Provider + Reason for Referral * Consultation (Within 1 month) - Closed Specialty Diagnoses / Procedures Referred By Megha franco Referred To Contact Gastroenterology Diagnoses Abdominal pain, unspecified abdominal location Persistent vomiting Caridad Louis MD Phone: tel: Soto Noble MD, PhD Phone: tel: fax: mailto:[email or web address] Referral ID Status Reason Start Date Expiration Date Visits Re quested Visits Authorized [id number] Closed 12/15/2018 12/16/2019 1 1 Encounter Details Date Type Department Care Team (Latest Contact Info) Description 12/15/2018 Transcribe Orders [facility] [address] [facility], 5th [place] [address] Caridad Louis MD [address] [place] [phone] Abdominal pain, unspecified abdominal location (Primary Dx); [...] vomiting documented in this encounter Care Teams Mirror Silverer Relationship Specialty Start Date End Date Caridad Louis MD PCP - General Internal Medicine 05/01/18 documented as of this encounter Additional Source Comments The information contained in this document represents components of the legal health record. It is not the complete legal health record.[facility]
--- OUTSIDE RECORDS SUMMARY | 2025-07-09 07:54 | XMS_ITS | Encounter Summary ---
Author Organization [facility] Address [address] [facility] [address] [place] [address] Phone Care Team Providers Care Plant Control Operator Name Role Phone Caridad Louis MD Primary Care Provider + Reason for Referral * Consultation (Elective) - Closed Specialty Diagnoses / Procedures Referred By Megha franco Referred To Contact Neurology Diagnoses Encounter for consultation System, Provider Not In, PhD [id number] [place] [phone] Phone: tel: Referral ID Status Reason Start Date Expiration Date Visits Re quested Visits Authorized [id number] Closed 10/29/2018 10/29/2019 1 1 Encounter Details Date Type Department Care Team (Late st Contact Info) Description 10/29/2018 Transcribe Orders [facility] Department of Neurology [address] [place] [address], 8th Floor, [address] [place] [address] Caridad Louis MD [address] [place] [address] [phone] Encounter for consultation (Primary Dx) Social History [...] Diagnoses Orde r Schedule Ambulatory referral to [facility] Neurology Outpatient Referral Routine Encounter for consultation Ordered: 10/29/2018 documented as of this encounter Visit Diagnoses Diagnosis Encounter for consultation- Primary documented in this encounter Care Teams Plant Control Operator Relationship Specialty Start Date End Date Caridad Louis MD PCP - General Internal Medicine 05/01/18 documented as of this encounter Additional Source Comments The information contained in this document represents components of the legal health record. It is not the complete legal health record.[facility]
--- OUTSIDE RECORDS SUMMARY | 2025-07-09 07:54 | XMS_ITS | Clinical Summary ---
Author Organization [facility] Address [address] [place] [address] Care Team Providers Care Insulation Helper Name Role Phone Caridad Louis MD Primary Care Provider +1- [phone] Allergies Active Allergy Reactions Criticality Noted Date [...] age to complete this topic Care Teams Insulation Helper Relationship Specialty Start Date End Date Caridad Louis MD [address] [place] [phone] PCP - General Internal Medicine 12/21/21
--- OUTSIDE RECORDS SUMMARY | 2025-07-09 07:54 | XMS_ITS | Data Portability ---
Author Organization [facility] Address [address] [place] [address] Assessment Encounter Date Assessment Date Assessment LastModified [...] Appointment scheduled for 3:[address] [facility]. Patient is in not in any acute [...] for injection 2022 023 [email or web address] [id number], [phone] [place], [address], 3 13:18:54 lidocaine (PF) 10 mg/mL (1 %) injection solution 2022 023 [email or web address] [id number], [phone] [place], [address], 3 13:18:54 Patient TargetsNo targets recorded. Patient [...] lateral collateral ligament of right knee joint 2214219982581 9104 Active 2022 EMELINA SANTOS PA-C [address],[facility], [place], [address], [place] [facility] [place], P 3 19:51:21 Pain of right calf 4861097430904 103 Active 2022 EMELINA SANTOS PA-C [address],[facility], [place], [address], [place] [facility] [place], P 3 13:11:32 Problem Notes None recorded. Procedures Surgical History Date Name Laterality Status Provider Name and Address Organization Details Recorded Time 01/02/2023 Knee Joint/Burs a Asp & Inj completed EMELINA SANTOS PA-C [address],[facility], [place], [address], [place] [facility] [place], P 01/02/2023 13:19:35 12/19/2022 Knee Joint/Burs a Asp & Inj completed EMELINA SANTOS PA-C [address], [place], [address], [place] [facility] [place], P 12/19/2022 19:56:53 Imaging Results None recorded. Procedure Notes None recorded. Medical Equipment None Reported. Allergies Allergen ID Allergen Name Allergen Category Reaction Reaction Severity Criticality Documentation Date Start Date Code Code System Note Provider Name and Address Organization Details Recorded Time 457424 nitrofura ntoin medicatio n Not available Not available Not available 05/25/20252018 7454 RxNorm React ion: Anaph ylaxi s, sever ity: Unkno wn;Re actio n: Itchi ng, sever ity: Unkno wn;Re actio n: Other (See Comme nts), sever ity: Unkno wn;Di fficu lty breat noe Not Available [facility] 5 01:32:16 2631 Non-stero idal anti-infl ammatory agent (substanc e) medicatio n Not available Not available Not available 12/19/2022 85559 5008 SNOMED Nancy Anne null, [place] [facility] [place], P 3 14:47:20 2632 Macrobid medicatio n Not available Not available Not available 12/19/2022 05499 1 RxNorm Nancy Anne null, [place] [facility] [place], P 3 14:47:26 Medications Name Sig Start [...] Updated DateTime 12/19/2022 157.48 cm 57.8 kg/m2 484556.[address] [facility] [place], P 12/19/2022 14:48:12 Social History None recorded. Functional Status Question Answer Note LastModified by Organizat ion Details LastModified Time Do you use any illicit or recreational drugs? No [email or web address] Information not available 12/19/2022 Do you or have you ever used any other forms of tobacco or nicotine? No [email or web address] Information not available 12/19/2022 What is your level of alcohol consumption? None [email or web address] Information not available 12/19/2022 Mental Status None [...] IMO Codes Diagnosis Note 6177 SHANNAN SANDHU Girls [facility] [address] [facility] [address] [place] [address] 12/19/2022 14:32:55 12/19/2022 15:14:51 Sprain of lateral collateral ligament of right knee joint [id number] 8610545 S83.91XA 8112 SHANNAN SANDHU [facility] [address] [facility] [address] [place] [address] 01/02/2023 12:52:58 01/02/2023 13:20:33 Pain of right calf 7735784661 040726 M79.661 Pain of ri ght knee joint 0888386075 66935 M25.561 Health Concerns Section Related Observation LastModified by Organization Detai ls LastModified Time None Recorded Concern Status LastModified by Organization Details LastModified Time None Recorded Advance Directives Directive None Recorded Payers Insurance Date Sequence Insurance Name Policy Number Policy Canales Covered Member ID Canales Member ID Guarantor Name 01/27/2023 1 ARA (POS) [id number] Digna Foss [id number] Digna Foss Notes Date Note Type [...] pain which prompted her to go to [facility]'s ER. Patient states she was told that [...] I personally reviewed these x-rays in the [facility] PACS system and agree with the below noted findings. Diagnostic Imaging [id number] [place] [address] Pat ient: DIGNA FOSS/Age/Sex: 1975 - FUnit#: [id number] Location/Status: SPER/PRE ERAccount#: [id number] Mnemonic/Ordering [facility] ER,DOC CR Knee RT 4 or [...] findings. Moderately severe osteoarthritis, mildlyprogressive since 04/20/2014.Code 96153Xraugdnto Physician: TAPAN LOVETT MDElectronically Signed by: TAPAN LOVETT [facility] Date/Time: 12/17/22804Sign date/Time: 12/17/22 08 EMELINA SANTOS PA-C [address] [place] [address], [address], [place] [facility] [place], P 12/19/2022 19:58:33 3 text/html Assessment & [...] family history of DVT. EMELINA SANTOS PA-C [address] [place] [address],[facility] [address], [place], [address], [place] [facility] [place], P 01/02/2023 13:20:34 OBGyn Episode No OBEpisode recorded.
--- OUTSIDE RECORDS SUMMARY | 2025-07-09 07:54 | XMS_ITS | Clinical Summary ---
Author Organization [facility] Address [address] [place] [address] Care Team Providers Care Cloth Bleaching Range Tender Name Role Phone Caridad Louis MD [...] Vaccine, 23 Valent 07/16/2017 Pneumococcal conjugate PCV20,polysaccharide DER615 conjugate, adjuvant, PF (Prevnar 20) 12/20/2022 Tetanus [...] 2025 , 06/12/2021, 06/04/2020, Additional history exists Diabetes Screening 10/27/2027 10/27/2024, 0 10/12/2024, 08/04/2024 DTaP,Tdap,and Td Vaccines (4 - Td or Tdap) 12/20/2032 12/20/2022, 11/26/2011, 05/16/2000 Hepatitis B Vaccines Completed 11/04/2012, 05/08/2012, 04/10/2012 Pneumococcal Vaccine: 50+ Years Completed , 07/16/2017 Procedures * Due to [place] MiTio law, this organization might not be sharing negative HIV tests. Procedure Name Priority Date/Time Associated Diagnosis Comments POCT GLUCOSE Routine 10/27/2024 10:01 AM EST from Last 3 Months or Most Recently Relevant to Health Maintenance Results * Due to [place] MiTio law, this organization might not be sharing negative HIV tests. * (ABNORMAL) POCT Glucose, interfaced (10/27/2024 10:01 AM EST) [facility] Signature Glucose, POCT 105(H) 70 - 99 mg/dL 10/27/2024 10:02 AM EST [facility] Comment: The logistics system engineer has not determined the efficacy of this test in Critically ill patients. [facility] defines Critically ill patients for the [...] POCT ORDERABLES - DEVICE Final Result [facility] [address] [place] [address], [place] from Last 3 Months or Most Recently Relevant to Health Maintenance Insurance [employer] Advance Directives * Presumed Full Code (Latest Code Status on File) Date Activated Date Inactivated Comments 10/27/2024 10:29 AM 10/27/2024 9:21 PM * Presumed Full Code Date Activated Date Inactivated Comments 08/04/2024 8:56 AM 08/04/2024 3:36 PM Care Teams Cloth Bleaching Range Tender Relationship Specialty Start Date End Date Caridad Louis MD [address] [place] [address] PCP - General Internal Medicine 05/05/24
--- OUTSIDE RECORDS SUMMARY | 2025-07-09 07:54 | XMS_ITS | Patient Health Record ---
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) Active confirmed Problem Body mass index 40+ - morbidly obese (997379566) Body mass index [BMI] 50.0-59.9, adult (Z68.43) Active confirmed Plan Of Treatment No Information Insurance Providers Payer Name Payer Address Payer Phone Subscriber Number Group Number Insured Name Patient Relationship to Insured Coverage Start Date Coverage End Date [employer] [address] [address] [place] [address] [id number] Lisa Foss Self - patient is the [...] following gastric bypass COVID vaccinated X 2 ([employer]) and [address] ([employer]) Surgical History Surgery Date(Month/Year) colonoscopy 08/24/2020, [...]
--- OUTSIDE RECORDS SUMMARY | 2025-07-09 07:54 | XMS_ITS | Data Portability ---
Author Organization [place] [facility] Address [address] [place] [address] Care Team Providers Care Retail Grocer Name Role Phone JOÃO PLUNKETT Primary Care [...] plasma 019 [email or web address] [facility], [address] [place] [address], [address], 9 14:46:59 Referral None recorded. Procedures None recorded. Surgeries None recorded. Imaging None recorded. Medication Orders None recorded. Patient TargetsNo targets recorded. Patient Instructions Encounter Date Encounter Id Patient Instructions Last Modified By Organization Details Last Modified Time 06/11/2019 [id number] [employer] came to your home for evaluation of [...] with your PCP. You are seeing the kitchen work supervisor tomorrow for further evaluation of your blood pressure concerns. We did not give you any prescriptions. Thank you for your visit with [facility] today. We cannot always find the exact [...] in your condition between 8am-10pm, please call [employer] at [phone] to help navigate your care. Not available 06/11/2019 14:46:59 Reason for Referral None Reported. Results Created Date Observation Date Name Description Value Unit Range Abnormal Flag Note LastModifiedBy Organization Detail LastModifiedTime 06/11/2006/11/2019 BMP + ioniz ed calci um, serum or plasm a Na 142 mmol/ L 138-14 6 Not Available [facility] - [address] [place], [address], 06/11/2019 14:41:52 06/11/2006/11/2019 BMP + ioniz ed calci um, serum or plasm a K 3.9 mmol/ L 3.5-4. 9 Not Available [facility] [address] [place], [address], 06/11/2019 14:41:52 06/11/2006/11/2019 BMP + ioniz ed calci um, serum or plasm a cL 108 mmol/ L 98-109 Not Available [facility] Home [address] [place], [address], 06/11/2019 14:41:52 06/11/2006/11/2019 BMP + ioniz ed calci um, serum or plasm a ica 1.18 mmol/ L 1.12-1 .32 Not Available [facility] - Home [address] [place], [address], 06/11/2019 14:41:52 06/11/2006/11/2019 BMP + ioniz ed calci um, serum or plasm a TCO2 22 mmol/ L 24-29 Not Available [facility] - Home [address] [place], [address], 06/11/2019 14:41:52 06/11/2006/11/2019 BMP + ioniz ed calci um, serum or plasm a glu 160 mg/dL 70-105 Not Available [facility] - Home [address] [place], [address], 06/11/2019 14:41:52 06/11/2006/11/2019 BMP + ioniz ed calci um, serum or plasm a BUN 20 mg/dL 8-26 Not Available [facility] - Home [address] [place], [address], 06/11/2019 14:41:52 06/11/2006/11/2019 BMP + ioniz ed calci um, serum or plasm a crea 0.5 mg/dL .6-1.3 Not Available [facility] - Home [address] [place], [address], 06/11/2019 14:41:52 06/11/2006/11/2019 BMP + ioniz ed calci um, serum or plasm a HCT 37 %_pcv 38-51 Not Available [facility] - Home [address] [place], [address], 06/11/2019 14:41:52 06/11/2006/11/2019 BMP + ioniz ed calci um, serum or plasm a Hb 12.6 g/dL 12-17 Not Available [facility] - Home [address], [place], [address], 06/11/2019 14:41:52 06/11/20 19 06/11/2019 BMP + ioniz ed calci um, serum or plasm a angap 17 mmol/ L 10- Not Available [facility] - [address], [place], [address], 06/11/2019 14:41:52 Result Notes None recorded. Procedures Surgical History Date Name Laterality Status Provider Name and Address Organization Details Recorded Time 06/11/20 19 Venipuncture - completed MOISES HINTON NP [address] [place], [address], [place] [facility] 06/11/2019 14:41:40 Imaging Results None recorded. Procedure Notes None recorded. Medical Equipment None Reported. Allergies Allergen ID Allergen Name Allergen Category Reaction Reaction Severity Criticality Documentation Date Start Date Code Code System Note Provider Name and Address Organization Details Recorded Time 64269 Macrobid medicatio n other Not available Not available 06/11/2019 24169 1 RxNorm MOISES HINTON NP [address] [place], [address], [place] [facility] 9 14:28:29 Medications Name Sig Start [...] Status Never Smoker MOISES HINTON NP [address] [place], [address], [place] [facility] 06/11/2019 14:31:22 What Was [...] ICD10 Code Diagnosis IMO Codes Diagnosis Note [id number] MOISES HINTON NP [facility] [address] [place] [address] 06/11/2019 14:25:37 06/11/2019 18:00:59 Dizziness 907041599 R42 Health Concerns Section Related Observation LastModified by Organization Detai ls LastModified Time None Recorded Concern Status LastModified by Organization Details LastModified Time None Recorded Advance Directives Directive None Recorded Payers Insurance Date Sequence Insurance Name Policy Number Policy Canales Covered Member ID Canales Member ID Guarantor Name 06/11/2019 1 [facility] Lisa Dewaynellato [id number] Lisa Dewaynellato 06/11/2019 1 *SELF PAY* Lisa Stellato [id number] Lisa Stellato 06/11/2019 1 [facility] Lisa Stellato [id number] Lisa Stellato Notes Date Note Type [...] intermittent nausea. She has gone to [facility] before. SHe is tolerating PO fluids and food. No shortness of breath, chest pain, palpitations, abdominal pain.She has the merena and has only occasional irregular spotting with it.No real menses for the past 4 years. MOISES HINTON NP [address] [place], [address], [place] [facility] 06/11/2019 16:13:47 OBGyn Episode No OBEpisode recorded.
--- OUTSIDE RECORDS SUMMARY | 2025-07-09 07:55 | XMS_ITS | Clinical Summary ---
Author Organization [facility] Address [address] [place] [address] Phone Care Team Providers Care Traffic Counter Name Role Phone Caridad Louis MD Primary Care Provider [phone]- [phone] Allergies Active Allergy Reactions Criticality Noted Date [...] - 07/04/2025 11:29 AM EST Hospital Encounter [facility] Urology Unit [address] [place] [address] Jennifer Mendes MD Bukalo, Nermina, MD Alam, MD Marimar Mild intermittent asthma with exacerbation (Primary Dx); Shortness of breath; Bilateral lower extremity edema Discharge Disposition: Home or Self Care from Last 3 Months Surgical History Surgery Date Site/Laterality Comments COLONOSCOPY PROCEDURE: HISTORICAL COLONOSCOPY; COMMENT: 08/24/20, 11/27/16, 04/2013, 2007 ESOPHAGOGASTRODUODENOSCOPY 10/24/2018 PROCEDURE: FL ESOPHAGOGASTRODUODENOSCOPY TRANSORAL DIAGNOSTIC OTHER SURGICAL HISTORY 03/10/2018 PROCEDURE: FL RPR PARAESOPH HIATAL HERNIA W/LAPT W/O MESH OTHER SURGICAL HISTORY 05/23/2017 PROCEDURE: FL ENDOSCOPY UPPER SMALL INTESTINE BLADDER SURGERY 2016 PROCEDURE: HISTORICAL BLADDER SURGERY; COMMENT: Implantation of electronic stimulator ESOPHAGOGASTRODUODENOSCOPY 02/20/2016 PROCEDURE: FL ESOPHAGOGASTRODUODENOSCOPY TRANSORAL DIAGNOSTIC OTHER SURGICAL HISTORY 11/27/2016 PROCEDURE: FL ENDOSCOPY UPPER SMALL INTESTINE OTHER SURGICAL HISTORY 05/01/2012 PROCEDURE: FL EGD FLEXIBLE TRANSNASAL W/BIOPSY SINGLE/MULTIPLE CHOLECYSTECTOMY 06/02/2010 PROCEDURE: FL LAPAROSCOPY SURG CHOLECYSTECTOMY OTHER SURGICAL HISTORY 2000 PROCEDURE: FL LAPS [...] swelling LUQ pain DX:LUQ pain Mood disorder ([facility] V24) DX:M ood disorder ([facility]) Nausea DX:Nausea Neuropathy DX:Neuropathy Obstructive sleep apnea DX:Obstr uctive sleep apnea Otitis media of left ear DX:Otit is media of left ear Pneumonia DX:Pneumonia Recurrent UTI DX:Recurrent UTI Seasonal allergic rhinitis DX:Se asonal allergic rhinitis Severe obesity ([facility] V24, [facility] V28) DX:Severe obesity (HCC) Thrombocytopenia ([facility] V24) D X:Thrombocytopenia ([facility]) Vaginal discharge DX:Vaginal dis charge Weight gain following gastri c bypass surgery DX:Weight gain following gas tric bypass surgery Chest pain DX:Chest pain Non-cardiac chest pain DX:Non-ca rdiac chest pain Rectovaginal fistula DX:Rectovag inal fistula Low back pain DX:Low back pain Morbid obesity with BMI of 5 0.0-59.9, adult ([facility] V24, [facility] V28) DX:Morbid obesity wit h BMI of 50.0-59.9, adult ([facility]) Family History Medical History Relation Name Comments [...] Hold for add-ons. 07/04/2025 8:01 AM EST [facility] Comment:Auto resulted. Blood Venous blood specimen / Unknown Venipuncture / Unknown 07/04/2025 5:42 AM EST 07/04/2025 6:49 AM EST us Marimar Moncada MD LAB BLOOD ORDERABLES Final Resul t [facility] [address] [place] [address], * (ABNORMAL) Basic metabolic panel (07/04/2025 5:42 AM EST) Sodium 140 133 - 145 mmol/L LAB CHEMISTRY METHOD 07/04/2025 7:33 AM [facility] Potassium 4.4 3.5 - 5.5 mmol/L LAB CHEMISTRY METHOD 07/04/2025 7:33 AM [facility] Chloride 106 96 - 110 mmol/L LAB CHEMISTRY METHOD 07/04/2025 7:33 AM [facility] CO2 28 21 - 32 mmol/L LAB CHEMISTRY METHOD 07/04/2025 7:33 AM [facility] Anion Gap 6 3 - 11 LAB CHEMISTRY METHOD 07/04/2025 7:33 AM [facility] Glucose 106(H) 70 - 100 mg/dL LAB CHEMISTRY METHOD 07/04/2025 7:33 AM [facility] BUN 14 5 - 25 mg/dL LAB CHEMISTRY METHOD 07/04/2025 7:33 AM [facility] Creatinine 0.76 0.50 - 1.10 mg/dL LAB CHEMISTRY METHOD 07/04/2025 7:33 AM [facility] eGFR 96 >=60 mL/min/1. 73m2 LAB CHEMISTRY METHOD 07/04/2025 7:33 AM [facility] Comment:Calculation based on the Chronic Kidney Disease Epidemiology Collaboration (CKD-EPI) equation refit without adjustment for race. BUN/Creatinine Ratio 18.4 LAB CHEMISTRY METHOD 07/04/2025 7:33 AM [facility] Calcium 8.9 8.5 - 10.5 mg/dL LAB CHEMISTRY METHOD 07/04/2025 7:33 AM [facility] Blood Venous blood specimen / Unknown Venipuncture / Unknown 07/04/2025 5:42 AM EST 07/04/2025 6:47 AM EST Cynthia ANSARI LAB BLOOD ORDERABLES Final Result [facility] [address] [place] [address], [place] [phone] * (ABNORMAL) Urinalysis with reflex microscopic and culture (07/03/2025 4:40 PM EDT) [place] Urine 1.018 1.003 - 1.030 LAB URINALYSIS - AUTOMATED METHOD 07/03/2025 5:15 PM EDT [facility] pH, Urine 6.0 5.0 - 8.0 pH LAB URINALYSIS - AUTOMATED METHOD 07/03/2025 5:15 PM [facility] Leukocytes, Urine Small(A) Negative LAB URINALYSIS - AUTOMATED METHOD 07/03/2025 5:15 PM [facility] Nitrite, Urine Negative Negative LAB URINALYSIS - AUTOMATED METHOD 07/03/2025 5:15 PM [facility] Protein, Urine Negative <=Trace mg/dL LAB URINALYSIS - AUTOMATED METHOD [facility] Glucose, Urine Negative Negative mg/dL LAB URINALYSIS - AUTOMATED METHOD 07/03/2025 5:15 PM [facility] Ketones, Urine Negative Negative mg/dL LAB URINALYSIS - AUTOMATED METHOD 07/03/2025 5:15 PM [facility] Urobilinogen, Urine 0.2 0.2 - 1.0 mg/dL LAB URINALYSIS - AUTOMATED METHOD 07/03/2025 5:15 PM [facility] Bilirubin, Urine Negative Negative LAB URINALYSIS - AUTOMATED METHOD 07/03/2025 5:15 PM EDT [facility] Blood, Urine Negative Negative LAB URINALYSIS - AUTOMATED METHOD 07/03/2025 5:15 PM EDT [facility] RBC, Urine 9.5(H) 0 - 4 /HPF LAB URINALYSIS - AUTOMATED METHOD 07/03/2025 5:15 PM EDT [facility] WBC, Urine 3.1 0 - 4 /HPF LAB URINALYSIS - AUTOMATED METHOD 07/03/2025 5:15 PM EDT [facility] Squamous Epithelial, Urine 53 0 - 60 /LPF LAB URINALYSIS - AUTOMATED METHOD 07/03/2025 5:15 PM EDT [facility] Bacteria, Urine Few(A) Negative /HPF LAB URINALYSIS - AUTOMATED METHOD 07/03/2025 5:15 PM EDT [facility] Hyaline Casts, Urine 0.8 0 - 3 /LPF LAB URINALYSIS - AUTOMATED METHOD 07/03/2025 5:15 PM EDT [facility] Urine Urine specimen obtained by clean catch procedure / Unknown Non-blood Collection / Unknown 07/03/2025 4:40 PM EDT 07/03/2025 5:05 PM EDT Anisa ANSARI LAB URINE ORDERABLES Final R esult [facility] [address] [place] [address], * Goldberg urine culture tube (07/03/2025 4:40 PM EDT) Extra Tube Hold for add-ons. 07/03/2025 7:01 PM EDT [facility] Comment:Auto resulted. Urine Urine specimen obtained by clean catch procedure / Unknown Non-blood Collection / Unknown 07/03/2025 4:40 PM EDT 07/03/2025 5:05 PM EDT Anisa ANSARI LAB URINE ORDERABLES Final R esult [facility] [address] [place] [address], [place] [phone] * (ABNORMAL) Culture urine (07/03/2025 4:40 PM EDT) Culture, Urine >=100,000 CFU/mL Escherichia coli(A) SOTO 07/05/2025 11:25 AM EST [facility] Comment: This is an edited result. Previous organism was Gram negative bacilli on 07/04/2025 at 1248 EST. Urine Urine specimen obtained by clean catch procedure / Unknown Non-blood Collection / Unknown 07/03/2025 4:40 PM EDT 07/03/2025 5:15 PM EDT Narrative [facility] - 07/05/2025 11:25 [...] MICROBIOLOGY - GENERAL O RDERABLES Final Result [facility] [address] [place] [address], * ECG 12 lead (07/03/2025 3:48 PM EDT) Only the most recent of2 resultswithin the time period is included. [facility] Ventricular Rate ECG 91 BPM GEMUSE Atrial Rate 91 BPM GEMUSE P-R Interval 178 ms GEMUSE QRS Duration 92 ms GEMUSE Q-T Interval 362 ms GEMUSE QTc 445 ms GEMUSE P Wave Franklin 42 degrees GEMUSE R Franklin -20 degrees GEMUSE T Franklin 9 degrees GEMUSE ECG Interpretation Normal sinus rhythm Voltage criteria for left ventricular hypertrophy Abnormal ECG When compared with ECG of 03-JUL-2025 09:21, (unconfirmed) Poor data quality in current ECG precludes serial comparison Confirmed by Tigre SANDERS JOHN ([id number]) on 07/04/2025 4:35:00 PM GEMUSE 07/03/2025 3:48 PM EDT 07/04/2025 4:35 PM EST Cynthia ANSARI ECG ORDERABLES Final Resul t Performing Organization Address City/[facility]/ZIP Co de Phone Number GEMUSE * Troponin I high sensitivity (07/03/2025 11:12 AM EDT) Only the most recent of3 resultswithin the time period is included. [facility] High Sensitivity Troponin I 32 <=54 ng/L LAB CHEMISTRY METHOD 07/03/2025 12:31 PM EDT [facility] Blood Venous blood specimen / Unknown Venipuncture / Unknown 07/03/2025 11:12 AM EDT 07/03/2025 11:56 AM EDT Narrative [facility] - 07/03/2025 12:31 PM EDT High levels of biotin in samples may falsely decrease hsTroponin values. Use caution when interpreting hsTroponin results in patients taking biotin who exhibit renal impairment (eGFR <60) or in patients taking more than 20 mg/day of biotin. Anisa ANSARI LAB BLOOD ORDERABLES Final R esult [facility] [address] [place] [address], * CT Angio Chest wo and/or w [...] Signed Date: 07/03/2025 11:16 ET Workstation ID: [id number] Transcribed By: Self Edit Transcribed Date: 07/03/2025 [...] Signed Date: 07/03/2025 11:16 ET Workstation ID: [id number] Transcribed By: Self Edit Transcribed Date: 07/03/2025 11:08 ET Anisa ANSARI IMG CT PROCEDURES Final Resu lt * Respiratory virus panel molecular study (07/03/2025 10:33 AM EDT) Adenovirus Detection by PCR Not Detected Not Detected LAB MICROBIOLOGY METHOD 07/03/2025 11:44 AM EDT [facility] Influenza A PCR Not Detected Not Detected LAB MICROBIOLOGY METHOD 07/03/2025 11:44 AM EDT [facility] Influenza B PCR Not Detected Not Detected LAB MICROBIOLOGY METHOD 07/03/2025 11:44 AM EDT [facility] Coronavirus 229E Not Detected Not Detected LAB MICROBIOLOGY METHOD 07/03/2025 11:44 AM EDT [facility] Coronavirus HKU1 Not Detected Not Detected LAB MICROBIOLOGY METHOD 07/03/2025 11:44 AM EDT [facility] Coronavirus OC43 Not Detected Not Detected LAB MICROBIOLOGY METHOD 07/03/2025 11:44 AM EDT [facility] Coronavirus NL63 Not Detected Not Detected LAB MICROBIOLOGY METHOD 07/03/2025 11:44 AM EDT [facility] Parainfluenza Virus 1 Not Detected Not Detected LAB MICROBIOLOGY METHOD 07/03/2025 11:44 AM EDT [facility] Parainfluenza Virus 2 Not Detected Not Detected LAB MICROBIOLOGY METHOD 07/03/2025 11:44 AM EDT [facility] Parainfluenza Virus 3 Not Detected Not Detected LAB MICROBIOLOGY METHOD 07/03/2025 11:44 AM EDT [facility] Parainfluenza Virus 4 Not Detected Not Detected LAB MICROBIOLOGY METHOD 07/03/2025 11:44 AM EDT [facility] RSV PCR Not Detected Not Detected LAB MICROBIOLOGY METHOD 07/03/2025 11:44 AM EDT [facility] Human Metapneumovirus A and B Not Detected Not Detected LAB MICROBIOLOGY METHOD 07/03/2025 11:44 AM EDT [facility] Rhinovirus/Entero virus Not Detected Not Detected LAB MICROBIOLOGY METHOD 07/03/2025 11:44 AM EDT [facility] Bordetella pertussis Not Detected Not Detected LAB MICROBIOLOGY METHOD 07/03/2025 11:44 AM EDT [facility] Bordetella parapertussis Not Detected Not Detected LAB MICROBIOLOGY METHOD 07/03/2025 11:44 AM EDT [facility] Mycoplasma pneumo by PCR Not Detected Not Detected LAB MICROBIOLOGY METHOD 07/03/2025 11:44 AM EDT [facility] Chlamydia pneumoniae Not Detected Not Detected LAB MICROBIOLOGY METHOD 07/03/2025 11:44 AM EDT [facility] SARS COV-2 Not Detected Not Detected LAB MICROBIOLOGY METHOD 07/03/2025 11:44 AM EDT [facility] Swab Both anterior nares / Unknown Non-blood Collection / Unknown 07/03/2025 10:33 AM EDT 07/03/2025 10:[address] [facility] - 07/03/2025 11:44 AM EDT Testing was performed using the [employer] Respiratory Pathogen PCR Assay. All results must [...] - GENERAL O RDERABLES Final Result [facility] [address] [place] [address], * XR Chest 2 Views (07/03/2025 10:12 [...] Signed Date: 07/03/2025 10:50 ET Workstation ID: [id number] Transcribed By: Self Edit Transcribed Date: 07/03/2025 [...] Signed Date: 07/03/2025 10:50 ET Workstation ID: [id number] Transcribed By: Self Edit Transcribed Date: 07/03/2025 [...] Signed Date: 07/03/2025 10:11 ET Workstation ID: [id number] Transcribed By: Self Edit Transcribed Date: 07/03/2025 [...] Signed Date: 07/03/2025 10:11 ET Workstation ID: [id number] Transcribed By: Self Edit Transcribed Date: 07/03/2025 10:09 ET Anisa ANSARI CV VASCULAR PROCEDURES Final Result * (ABNORMAL) CBC auto differential (07/03/2025 9:41 AM EDT) [facility] WBC 7.4 4.8 - 10.8 K/mcL LAB HEMETOLOGY METHOD [facility]/03[facility]2025 9[facility] RBC 4.50 3.80 - 4.80 M/mcL LAB HEMETOLOGY METHOD 07/03/2025 9:55 AM [facility] Hemoglobin 11.8 11.5 - 16.0 g/dL LAB HEMETOLOGY METHOD 07/03/2025 9:[facility] Hematocrit 38.6 35.0 - 47.0 % LAB HEMETOLOGY METHOD 07/03/2025 9:55 AM [facility] MCV 85.6 79.0 - 98.0 FL LAB HEMETOLOGY METHOD 07/03/2025 9:55 AM [facility] MCH 26.2(L) 27.0 - 32.0 pcg LAB HEMETOLOGY METHOD 07/03/2025 9:55 AM [facility] MCHC 30.6(L) 32.0 - 37.0 g/dL LAB HEMETOLOGY METHOD 07/03/2025 9:55 AM [facility] RDW 14.5 11.0 - 15.0 % LAB HEMETOLOGY METHOD 07/03/2025 9:55 AM [facility] Platelets 201 130 - 400 K/mcL LAB HEMETOLOGY METHOD 07/03/2025 9:55 AM [facility] MPV 10.2 7.0 - 11.0 FL LAB HEMETOLOGY METHOD 07/03/2025 9:55 AM [facility] NRBC 0.0 <1.0 % LAB HEMETOLOGY METHOD 07/03/2025 9:55 AM [facility] NRBC Absolute 0.00 <0.10 K/mcL LAB HEMETOLOGY METHOD 07/03/2025 9:55 AM [facility] Neutrophils Relative 62.2 % LAB HEMETOLOGY METHOD 07/03/2025 9:55 AM [facility] Lymphocytes Relative 27.9 % LAB HEMETOLOGY METHOD 07/03/2025 9:55 AM [facility] Monocytes Relative 6.9 % LAB HEMETOLOGY METHOD 07/03/2025 9:55 AM [facility] Eosinophils Relative 2.0 % LAB HEMETOLOGY METHOD 07/03/2025 9:55 AM [facility] Basophils Relative 0.5 % LAB HEMETOLOGY METHOD 07/03/2025 9:55 AM [facility] Immature Granulocytes Relative 0.5 % LAB HEMETOLOGY METHOD 07/03/2025 9:55 AM [facility] Neutrophils Absolute 4.57 1.50 - 7.00 K/mcL LAB HEMETOLOGY METHOD 07/03/2025 9:55 AM EDT [facility] Lymphocytes Absolute 2.05 1.00 - 5.00 K/[facility] LAB HEMETOLOGY METHOD 07/03/2025 9:55 AM EDT [facility] Monocytes Absolute 0.51 0.20 - 1.00 K/[facility] LAB HEMETOLOGY METHOD 07/03/2025 9:55 AM EDT [facility] Eosinophils Absolute 0.15 0.00 - 0.50 K/[facility] LAB HEMETOLOGY METHOD 07/03/2025 9:55 AM EDT [facility] Basophils Absolute 0.04 0.00 - 0.20 K/[facility] LAB HEMETOLOGY METHOD 07/03/2025 9:55 AM EDT [facility] Immature Granulocytes Absolute 0.04(H) 0.00 - 0.03 K/[facility] LAB HEMETOLOGY METHOD 07/03/2025 9:55 AM EDT [facility] Blood Venous blood specimen / Unknown Venipuncture / Unknown 07/03/2025 9:41 AM EDT 07/03/2025 9:47 AM EDT Jennifer Mendes MD LAB BLOOD ORDERABLES Final Resul t [facility] [address] [place] [address], * D-dimer, quantitative (07/03/2025 9:41 AM EDT) D-Dimer, Quant (D-DU) 230 <=230 ng/mL DDU LAB COAGULATION METHOD 07/03/2025 9:59 AM EDT [facility] Blood Venous blood specimen / Unknown Venipuncture / Unknown 07/03/2025 9:41 AM EDT 07/03/2025 9:47 AM EDT Narrative [facility] - 07/03/2025 9:59 AM EDT D-Dimer <230 ng/mL (D-Dimer units) is the threshold for exclusion of DVT/PE. D-Dimer may be elevated in: Critically ill, severely infected, trauma patients, DIC, acute CVA, acute IA, unstable angina, AF, old age, , and smoking. D-Dimer may be decreased with: Initiation of heparin therapy and oral anticoagulants. us Anisa ANSARI LAB BLOOD ORDERABLES Final R esult Performing Organization Address [facility]/ZIP Co de Phone Number [facility] [address] [place] [address], [place] [phone] * hCG, serum, qualitative (07/03/2025 9:41 AM EDT) Pathologist [facility] hCG Qual Negative Negative 07/03/2025 10:11 AM EDT [facility] Blood Venous blood specimen / Unknown Venipuncture / Unknown 07/03/2025 9:41 AM EDT 07/03/2025 9:47 AM EDT us Anisa ANSARI LAB BLOOD ORDERABLES Final R esult Performing Organization Address [facility] Co de Phone Number [facility] [address] [place] [address], [place] [phone] * B-type natriuretic peptide (07/03/2025 9:41 AM EDT) [facility] BNP <2 <=100 pcg/mL LAB CHEMISTRY METHOD 07/03/2025 10:34 AM EDT [facility] Blood Venous blood specimen / Unknown Venipuncture / Unknown 07/03/2025 9:41 AM EDT 07/03/2025 9:47 AM EDT us Jennifer Mendes MD LAB BLOOD ORDERABLES Final Resul t Performing Organization Address City/[facility] Co de Phone Number [facility] [address] [place] [address], [place] [phone] * Magnesium (07/03/2025 9:41 AM EDT) Pathologist [facility] Magnesium 2.3 1.9 - 2.6 mg/dL LAB CHEMISTRY METHOD 07/03/2025 10:24 AM EDT [facility] Blood Venous blood specimen / Unknown Venipuncture / Unknown 07/03/2025 9:41 AM EDT 07/03/2025 9:47 AM EDT us Jennifer Mendes MD LAB BLOOD ORDERABLES Final Resul t Performing Organization Address [facility]/ZIP Co de Phone Number [facility] [address] [place] [address], [place] [phone] * Lipase (07/03/2025 9:41 AM EDT) [facility] Lipase 15 13 - 75 unit/L LAB CHEMISTRY METHOD 07/03/2025 10:24 AM EDT [facility] Blood Venous blood specimen / Unknown Venipuncture / Unknown 07/03/2025 9:41 AM EDT 07/03/2025 9:47 AM EDT us Jennifer Mendes MD LAB BLOOD ORDERABLES Final Resul t Performing Organization Address [facility]/ZIP Co de Phone Number [facility] [address] [place] [address], [place] [phone] * (ABNORMAL) Comprehensive metabolic panel (07/03/2025 9:41 AM EDT) Pathologist [facility] Sodium 142 133 - 145 mmol/L LAB CHEMISTRY METHOD 07/03/2025 10:24 AM EDT [facility] Potassium 4.1 3.5 - 5.5 mmol/L LAB CHEMISTRY METHOD 07/03/2025 10:24 AM EDT [facility] Chloride 111(H) 96 - 110 mmol/L LAB CHEMISTRY METHOD 07/03/2025 10:24 AM [facility] CO2 26 21 - 32 mmol/L LAB CHEMISTRY METHOD 07/03/2025 10:24 AM [facility] Anion Gap 5 3 - 11 LAB CHEMISTRY METHOD 07/03/2025 10:24 AM [facility] Glucose 120(H) 70 - 100 mg/dL LAB CHEMISTRY METHOD 07/03/2025 10:24 AM [facility] BUN 18 5 - 25 mg/dL LAB CHEMISTRY METHOD 07/03/2025 10:24 AM [facility] Creatinine 0.84 0.50 - 1.10 mg/dL LAB CHEMISTRY METHOD 07/03/2025 10:24 AM [facility] eGFR 85 >=60 mL/min/1. 73m2 LAB CHEMISTRY METHOD 07/03/2025 10:24 AM [facility] Comment:Calculation based on the Chronic Kidney Disease Epidemiology Collaboration (CKD-EPI) equation refit without adjustment for race. BUN/Creatinine Ratio 21.4 LAB CHEMISTRY METHOD 07/03/2025 10:24 AM [facility] Calcium 8.6 8.5 - 10.5 mg/dL LAB CHEMISTRY METHOD 07/03/2025 10:24 AM [facility] AST (SGOT) 17 10 - 42 unit/L LAB CHEMISTRY METHOD 07/03/2025 10:24 AM [facility] ALT (SGPT) 22 10 - 60 unit/L LAB CHEMISTRY METHOD 07/03/2025 10:24 AM [facility] Alkaline Phosphatase 137(H) 42 - 121 unit/L LAB CHEMISTRY METHOD 07/03/2025 10:24 AM [facility] Total Protein 7.0 6.0 - 8.0 g/dL LAB CHEMISTRY METHOD 07/03/2025 10:24 AM [facility] Albumin 3.6 3.2 - 5.0 g/dL LAB CHEMISTRY METHOD 07/03/2025 10:24 AM EDT [facility] Total Bilirubin 0.4 0.0 - 1.4 mg/dL LAB CHEMISTRY METHOD 07/03/2025 10:24 AM EDT [facility] Blood Venous blood specimen / Unknown Venipuncture / Unknown 07/03/2025 9:41 AM EDT 07/03/2025 9:47 AM EDT us Jennifer Mendes MD LAB BLOOD ORDERABLES Final Resul t [facility] [address] [place] [address], from Last 3 Months Insurance [employer] [facility] Advance Directives * Full Code - [...] currently active code status orders. Care Teams Traffic Counter Relationship Specialty Start Date End Date Caridad Louis MD [address] [place] [address] PCP - General Internal Medicine 08/28/21
--- NOTE | 2025-07-09 08:00 | MHC.PC.OV ---
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 Batch Maker Required: No Accompanied by: Self / Same As Patient Allergies nitrofurantoin (From MACROBID) Allergy (Unknown, Verified 07/09/25 08:00) respiratory symptoms NSAIDS (Non-Steroidal Anti-Inflamma Adverse Reaction (Mild, Verified 07/09/25 08:00) Stomach issues Adhesive Tape Allergy (Intermediate, Uncoded 07/06/25 10:49) Hives SEASONAL ALLERGIES Allergy (Intermediate, Uncoded 07/06/25 10:49) respiratory symptoms Medication List - Last Reconciled 07/09/25 by Caridad Louis MD albuterol sulfate 90 mcg/actuation inhalation aripiprazole 20 mg PO DAILY clonazepam 1 tab PO BID PRN cyclobenzaprine 1 to 2 orally bedtime PRN; diclofenac sodium 3% 1 appl topical BID diphenoxylate-atropine 2.5-0.025 mg (Lomotil) 1 tab PO BID PRN esomeprazole magnesium 40 mg PO DAILY famotidine 40 mg PO BEDTIME fluconazole 150 mg PO QWEEK 4 weeks furosemide 40 mg PO DAILY lamotrigine 200 mg PO BID 30 days loperamide 2 mg PO Q6H PRN mirtazapine mg PO nortriptyline 10 mg PO BEDTIME ondansetron 8 mg PO Q8H PRN pregabalin 100 mg PO TID 15 days promethazine 50 mg PO BID PRN 2 days scopolamine base 1 patch transdermal Q3D PRN sertraline 50 mg PO DAILY sucralfate (Carafate) 1 g PO QID 30 days Tobacco use date assessed: 06/22/25 Dental Screening Dental Screen Date: 06/22/25 HPI HPI Comments History of Present Illness Details The patient is a 49 year old female presenting with weight gain and shortness of breath. Recent hospitalization at [facility], awaiting records, was given IV diuresis and discharged on furosemide 40mg and medrol dose joe. Patient's weight has decreased by about 11 lbs in 7 days. Shortness of breath: Persistent despite diuretic therapy. Onset in hospital; unchanged post-discharge. Diuretic efficacy: Limited; negligible urinary increase. Electrolyte imbalance: Magnesium supplemented previously. Anxiety/depression- stable Review of Systems - General: Reports recent weight gain- - Respiratory: Reports shortness of breath - Gastrointestinal: Reports reduced eating due to nausea, also constipation with nortriptyline Physical Exam - Respiratory- Lungs clear, no wheezing, no crackles present - Cardiovascular- No abnormal heart sounds, soft murmur across precordium - Extremities- Minimal ankle swelling, trace edema present Assessment and Plan 1. Shortness of breath - Evaluate diuretic response and adjust if needed. Pending echocardiogram. Consider torsemide instead of furosemide. 2. Weight gain - monitor for change in setting of diuresis, check bnp, lytes 3. Depression/anxiety- continue current regimen Follow up as scheduled Discussion Notes I discussed with the patient her current symptomatology, including weight gain and shortness of breath, explained the potential need for switching diuretics based on lab findings and the rationale for monitoring her kidney function and electrolytes. Patient Instructions - Monitor any changes in weight and report significant changes. - Continue taking furosemide daily as prescribed until further advice after labs. Increase fluid intake and add prune juice to assist with bowel movements. - Be aware of any changes in shortness of breath and report them if persistent or worsening. - Consult further if experiencing any adverse effects from medications. [facility] Medical History (Updated 07/09/25 @ 08:09 by Caridad Louis MD) Weight gain Dyspnea on exertion Chronic pain of both feet Fatigue Therapeutic drug monitoring Diarrhea LUQ pain RUQ pain Anemia Urinary retention Obesity Recurrent UTI DARRIUS (obstructive sleep apnea) Neuropathy Hyperplastic adenomatous polyp of stomach Erosive esophagitis Chronic foot pain Chondromalacia patellae Cervical radiculopathy GERD (gastroesophageal reflux disease) Nausea & vomiting Skin ulcer of abdomen Asthma Encounter for insertion of mirena IUD DARRIUS on CPAP Urinary bladder disorder Hiatal hernia with GERD Rectovaginal fistula Contusion of right knee Gastritis Vomiting Heart murmur Bipolar depression Moderate asthma Surgical History (Updated 07/07/25 @ 16:32 by Jonelle Cox) H/O eye surgery S/P implantation of urinary electronic stimulator device H/O hernia repair History of esophagogastroduodenoscopy (EGD) History of open reduction and internal fixation (ORIF) procedure History of colonoscopy (~04/14/24) H/O dilation and curettage Hx laparoscopic cholecystectomy Gastric bypass status for obesity (~2000) Family History Father Hx of type 1 diabetes mellitus Mother Hx of colon cancer, stage IV Social History Household Members: Spouse Housing: House Are you a primary childcare director to a significant other at home: No Do you presently have visiting nurse or other home services: No Alcohol intake: current Alcohol intake frequency: does not drink Comment: RIGHT KNEE CONTUSION Patient Tobacco Use Status: Former Tobacco user Tobacco use type: Cigarette Years Smoked: quit in 2003, only smoked for a couple years e-Cigarette/Vaping Use: Never Used Second Hand Smoke Exposure: No service: No Current occupational status: employed 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 [employer] Physical exam (Primary Care) Vital Signs: Last Vital Signs Temp 96.6 F L 07/09/25 08:09 Pulse 114 H 07/09/25 08:09 Resp 16 07/09/25 08:09 BP 124/84 07/09/25 08:09 Pulse Ox 96 07/09/25 08:09 Oxygen Delivery Method Room Air 07/09/25 08:09 BMI result Body Mass Index 64.3 Tobacco/Smoking Status: Tobacco use Status Tobacco use date assessed 06/22/25 07/09/25 08:02 Patient Tobacco Use Status Former Tobacco user 07/09/25 08:02 Tobacco use type Cigarette 07/09/25 08:02 e-Cigarette/Vaping Use Never Used 07/09/25 08:02 Coding Level of Care Code Est Pt Level 4 (60985) Complex EM visit Add On G2211 Diagnoses Dyspnea on exertion R06.09 Weight gain R63.5 Time Spent (min) 35 Comment includes chart review, documentation,med adjustment , counseling and plan of care Assessment & Plan Assessment & Plan (1) Dyspnea on exertion: Code(s): R06.09 - Other forms of dyspnea Category: Medical (2) Weight gain: Code(s): R63.5 - Abnormal weight gain Category: Medical Plan - Alter diuretic therapy as needed - Continue weight monitoring - Ensure dietary adjustments Orders: Orders Magnesium Today R06.09 - Other forms of dyspnea, R63.5 - Abnormal weight gain Comprehensive Met. Panel Today R06.09 - Other forms of dyspnea, R63.5 - Abnormal weight gain NT Pro B Type Natriuretic Pept Today R06.09 - Other forms of dyspnea, R63.5 - Abnormal weight gain
[2025-07-09 08:09] VITALS: BP 124/84; PULSE 114; RESP 16; TEMP 35.9; O2SAT 96; BMI 64.3
== END 2025-07-09 08:21 | disposition home or self-care (01) ==
LOC: HO.HMCHD 07:52
PROVIDERS: Visit Provider Internal Medicine
DX: R06.09 Other forms of dyspnea (principal); R63.5 Abnormal weight gain

== ENCOUNTER 2025-07-09 08:24 | Outpatient (REF) | payer OTHER, SELFPAY ==
--- OUTSIDE RECORDS SUMMARY | 2025-07-03 22:59 | XMS_ITS | Continuity of Care Document ---
Author Organization [facility] Address [address] [address]- Care Team Providers Care Pattern Drum Maker Name Role Phone Caridad Louis MD Primary Care Physician [id number] Date(s): 06/03/25 - 07/03/25 [facility] [address], [place] [address] Encounter Type: Triage Allergies, Adverse Reactions, [...] diphtheria-tetanus toxoids (DT) 05/16/00 Given 1Result Comment: [facility] [id number] 2Result Comment: GIVEN @ [facility] 3Result Comment: [facility]# [id number] pt. tolerated inj. without complications....[place] 4Result Comment: [05/21/2018] [facility]# [id number] pt. tolerated inj. 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 Refills 0, Maintenance, as needed for pain, 05/18/25 1:45:00 PM EDT, Route to Pharmacy Electronically, [facility] #[id number] Tablet, Partial fill upon patient request if the prescription is for a schedule II opioid drug. fill when due; ok to pay out of pocket until PA is approved, fill when due, 158.5, cm, 03/16/25 9:21:00 EDT, Height, 159.3, kg, 03/16/25 9:21:00 EDT, Dry Weight Start Date: 05/18/25 Stop Date: 05/25/25 Status: Ordered Medication Dispense Status: Completed Quantity: 28.0 Unit: tablet Total Allowed Fills: 1 Fills Dispensed: 0 Albuterol (Eqv-ProAir HFA) 90 mcg/inh inhalation aerosol 2 inhalation = 180 mcg, Inhalation, Every 6 hours, # 18 Gm, 11 Refills, Maintenance, 01/07/25 2:01:00PM EDT, [facility] #[id number], 2 inhalation Inhalation Every 6 hours, 157, cm, 12/04/24 15:00:00 EDT, Height, 162.5, kg, 12/04/24 15:00:00 EDT, Dry Weight Start Date: 01/07/25 Status: Ordered Medication Dispense Status: Completed Quantity: 18.0 Unit: g Total Allowed Fills: 12 Fills Dispensed: 0 albuterol-ipratropium 3 mg-0.5 mg/3 ml inhalation solution 3 mL, Inhalation, 4 times a day, PRN Wheezing/Shortness of Breath, # 180 mL, 11 Refills, Maintenance, 04/29/23 9:48:00 AM EDT, Solution, [facility]/pharmacy #[id number], Asthma J 45.90, 3 mL Inhalation 4 times a day,x30 days,PRN:Wheezing/Shortness of Breath, 157, cm, 04/29/23 9:27:00 EDT, Height, 138.8, kg, 06/27/22 14:01:00 EDT, Dry Weight Start Date: 04/29/23 Stop Date: 04/23/24 Status: Ordered Medication Dispense Status: Completed Quantity: 180.0 Unit: mL Total Allowed Fills: 12 Fills Dispensed: 0 ARIPiprazole 20 mg oral tablet TAKE 1 TABLET BY MOUTH EVERY DAY Start Date: 04/09/22 Status: Ordered Medication Dispense Status: Completed Total Allowed Fills: 1 Fills Dispensed: 0 autoCPAP ([employer]) autoCPAP ([employer]), See Instructions, # 1 each, Refills 0, Tot. Refills 0, Maintenance, autoCPAP autoCPAP 11-15cm H2O with heated humidification, mask, tubing, filters, headgear, chin strap, and water chamber. Gregorio provider access to wireless compliance dataLength of need: Lifetime 99 months Dx G47.33, 08/01/22 2:15:00 PM EST, Supply Start Date: 08/01/22 Status: Ordered Medication Dispense Status: Completed Quantity: 1.0 Unit: each Total Allowed Fills: 1 Fills Dispensed: 0 Indications: Obstructive sleep apnea (adult) (pediatric); clonazePAM 1 mg oral tablet 1 tablet = 1 mg, By Mouth, 2 times a day, PRN Anxiety, fill when due, # 28 tablet, 1 Refills, Maintenance, 03/22/25 12:51:00 PM EDT, Tablet, [facility] #[id number], 158.5, cm, 03/16/25 9:21:00 EDT, Height, 159.3, kg, 03/16/25 9:21:00 EDT, Dry Weight Start Date: 03/22/25 Stop Date: 04/19/25 Status: Ordered Medication Dispense Status: Completed Quantity: 28.0 Unit: tablet Total Allowed Fills: 2 Fills Dispensed: 0 cloNIDine 0.1 mg oral tablet 0.1 mg, 1, tablet, By Mouth, Daily at supper, # 30 tablet, Refills 2, Tot. Refills 2, Maintenance, 01/20/25 3:38:00 PM EDT, Route to Pharmacy Electronically, [facility] #[id number], Partial fill upon patient request if the prescription is for a schedule II opioid drug., 158.5, cm, 01/20/25 11:18 :00 EDT, Height, 160.1, kg, 01/13/25 10:58:00 EDT, Dry Weight Start Date: 01/20/25 Status: Ordered Medication Dispense Status: Completed Quantity: 30.0 Unit: tablet Total Allowed Fills: 3 Fills Dispensed: 0 CPAP Equipment Maintenance, 10/14/19 3:16:00 PM EST, Compound Start Date: 10/14/19 Status: Ordered Medication Dispense Status: Completed Total Allowed Fills: 1 Fills Dispensed: 0 [facility] ANTACID-ANTIGAS LIQUID GIVE 10 ML 4 TIMES A DAY NEEDED FOR INDIGESTION ADMINISTER BETWEEN MEALS AND AT BEDTIME Start Date: 12/20/22 Status: Ordered Medication Dispense Status: Completed Total Allowed Fills: 1 Fills Dispensed: 0 esomeprazole 40 mg oral enteric coated capsule TAKE 1 CAPSULE BY MOUTH 2 TIMES A DAY OPEN CAPSULE AND MIX WITH APPLE SAUCE Start Date: 12/20/22 Status: Ordered Medication Dispense Status: Completed Total Allowed Fills: 1 Fills Dispensed: 0 furosemide 20 mg oral tablet 20 mg, 1, tablet, By Mouth, Daily, PRN, # 30 tablet, Refills 0, Tot. Refills 0, Maintenance, leg swelling, 01/13/25 11:43:00 AM EDT, Route to Pharmacy Electronically, [facility] #[id number], Partial fill upon patient request if the prescription is for a schedule II opioid drug., 158.5, cm, 01/13/25 11:42:00 EDT, Height, 160.1, kg, 01/13/25 10:58:00 EDT, Dry Weight Start Date: 01/13/25 Status: Ordered Medication Dispense Status: Completed Quantity: 30.0 Unit: tablet Total Allowed Fills: 1 Fills Dispensed: 0 Juxta Fit Compression Wraps 20-30 mm/Hg Juxta Fit Compression Wraps 20-30 mm/Hg, See Instructions, # 2 each, Refills 0, Tot. Refills 0, Maintenance, Dx: Lymphedema, Venous insufficiency, 10/25/20 11:15:00 AM EST, Supply Start Date: 10/25/20 Status: Ordered Medication Dispense Status: Completed Quantity: 2.0 Unit: each Total Allowed Fills: 1 Fills Dispensed: 0 LaMICtal 150 mg oral tablet 1 tablet = 150 mg, By Mouth, 2 times a day, # 60 tablet, 0 Refills, Maintenance, 12/24/23 1:05:00 PMEDT, Tablet, Partial fill upon patient request if the prescription is for a schedule II opioid drug. Start Date: 12/24/23 Status: Ordered Medication Dispense Status: Completed Quantity: 60.0 Unit: tablet Total Allowed Fills: 1 Fills Dispensed: 0 Mirena 52 mg intrauteral device 1 each = 52 mg, Once, 0 Refills, Maintenance, 02/21/17 3:23:25 PM EDT Start Date: 02/21/17 Status: Ordered Medication Dispense Status: Completed Total Allowed Fills: 1 Fills Dispensed: 0 mirtazapine 15 mg oral tablet 0.5 tablet = 7.5 mg, By Mouth, Daily, # 15 tablet, 0 Refills, Maintenance, 10/23/24 11:56:00 AM EST,Tablet, Partial fill upon patient request if the prescription is for a schedule II opioid drug. Start Date: 10/23/24 Status: Ordered Medication Dispense Status: Completed Quantity: 15.0 Unit: tablet Total Allowed Fills: 1 Fills Dispensed: 0 Naftin 2% topical gel 1 application, Topically, 2 times a day, # 45 Gm, 5 Refills, Maintenance, 09/23/24 2:53:00 PM EST, Gel, [facility] #[id number], Partial fill upon patient request if the prescription is for a schedule II opioid drug., 1 application Topically 2 times a day, 157, cm, 07/02/24 10:01:00 EDT, Height,144, kg, 07/02/24 10:01:00 EDT, Dry Weight Start Date: 09/23/24 Status: Ordered Medication Dispense Status: Completed Quantity: 45.0 Unit: g Total Allowed Fills: 6 Fills Dispensed: 0 Nasonex 50 mcg/inh nasal spray 1 sprays, Nares, Both, Daily, # 17 Gm, 0 Refills, Maintenance, 10/02/21 12:53:00 PM EST, [id number], Partial fill upon patient request if the prescription is for a schedule II opioid drug., 1 sprays Nares, Both Daily, 157, cm, 06/27/21 13:05:00 EDT, Height, 146.6, kg, 05/29/21 10:56:00 EDT, Dry Weight Start Date: 10/02/21 Status: Ordered Medication Dispense Status: Completed Quantity: 17.0 Unit: g Total Allowed Fills: 1 Fills Dispensed: 0 Nebulizer/Compressor See Instructions, # 1 each, Refills 11, Tot. Refills 11, Maintenance, E0570 Nebulizer A7003 Neb Disp Set A7014 Neb non-Disp Filter A7005 Neb Non-Disp set A7015 Aerosol Mask A7013 Neb Disp Filter length of need lifetime 99 months for home use, 10/10/22 5:08:00 PM EST, Supply Start Date: 10/10/22 Status: Ordered Medication Dispense Status: Completed Quantity: 1.0 Unit: each Total Allowed Fills: 12 Fills Dispensed: 0 nystatin topical 902559 u/gm powder 1 application, Topically, 2 times a day, # 60 Gm, 5 Refills, Maintenance, 01/18/23 3:57:00 PM EDT, Powder, [facility] #[id number], Partial fill upon patient request if the prescription is for a schedule II opioid drug., 1 application Topically 2 times a day, 157, cm, 12/20/22 8:47:00 EDT, Height, 138.8, kg, 06/27/22 14:01:00 EDT, Dry Weight Start Date: 01/18/23 Status: Ordered Medication Dispense Status: Completed Quantity: 60.0 Unit: g Total Allowed Fills: 6 Fills Dispensed: 0 predniSONE 5 mg oral tablet See Instructions, 02/05-5/5-4/4-3/3-2/2-1/1 tablets 2 days each, # 42 tablet, 0 Refills, Maintenance,03/30/25 1:11:00 PM EDT, [facility] #[id number], Partial fill upon patient request if the prescription is for a schedule II opioid drug., 158.5, cm, 03/16/25 9:21:00 EDT, Height, 159.3, kg, 03/16/25 9:21:00 EDT, Dry Weight Start Date: 03/30/25 Status: Ordered Medication Dispense Status: Completed Quantity: 42.0 Unit: tablet Total Allowed Fills: 1 Fills Dispensed: 0 pregabalin 100 mg oral capsule 1 capsule = 100 mg, By Mouth, 2 times a day, temporary rx until psychiatrist is back, # 180 capsule, 0 Refills, Maintenance, 10/23/24 11:55:00 AM EST, Capsule, Partial fill upon patient request if theprescription is for a schedule II opioid drug. Start Date: 10/23/24 Status: Ordered Medication Dispense Status: Completed Quantity: 180.0 Unit: capsule Total Allowed Fills: 1 Fills Dispensed: 0 scopolamine 1 mg/72 hr transdermal film, extended release 1 film, Topically, Every 72 hours, 0 Refills, Maintenance, 06/01/22 2:28:00 PM EDT, Partial fill upon patient request if the prescription is for a schedule II opioid drug. Start Date: 06/01/22 Status: Ordered Medication Dispense Status: Completed Total Allowed Fills: 1 Fills Dispensed: 0 sertraline 50 mg oral tablet TAKE 1 TABLET BY MOUTH EVERY DAY Start Date: 12/20/22 Status: Ordered Medication Dispense Status: Completed Total Allowed Fills: 1 Fills Dispensed: 0 Spiriva Respimat 1.25 mcg/inh inhalation aerosol 2 puffs, Inhalation, Daily, # 1 each, 11 Refills, Maintenance, 02/04/23 10:33:00 AM EDT, Aerosol, [facility]/pharmacy #1130, asthma j45.9, 157, cm, 02/04/23 10:16:00 EDT, Height, 138.8, kg, 06/27/22 14:01:00 EDT, Dry Weight Start Date: 02/04/23 Stop Date: 01/30/24 Status: Ordered Medication Dispense Status: Completed Quantity: 1.0 Unit: each Total Allowed Fills: 12 Fills Dispensed: 0 Symbicort 160mcg/4.5mcg Inhaler 2, puffs, Inhalation, 2 times a day, in the morning and the evening use with spacer chamber rinse mouth and throat after use, # 1 each, Refills 11, Tot. Refills 11, Maintenance, 02/04/23 10:33:00 AM EDT, Aerosol, Route to Pharmacy Electronically, [id number][id number], 157, cm, 02/04/23 10:16:00 EDT, Height, 138.8, kg, 06/27/22 14:01:00 EDT, Dry Weight Start Date: 02/04/23 Stop Date: 01/30/24 Status: Ordered Medication Dispense Status: Completed Quantity: 1.0 Unit: each Total Allowed Fills: 12 Fills Dispensed: 0 thiamine 100 mg oral tablet 100 mg, 1, tablet, By Mouth, Daily in AM, Refills 0, Maintenance, 10/10/19 4:21:00 AM EST Start Date: 10/10/19 Status: Ordered Medication Dispense Status: Completed Total Allowed Fills: 1 Fills Dispensed: 0 turmeric 500 mg oral capsule 1 capsule = 500 mg, By Mouth, Daily, # 60 capsule, 0 Refills, Maintenance, 01/13/25 11:24:00 AM EDT,Capsule, Partial fill upon patient request if the prescription is for a schedule II opioid drug. Start Date: 01/13/25 Status: Ordered Medication Dispense Status: Completed Quantity: 60.0 Unit: capsule Total Allowed Fills: 1 Fills Dispensed: 0 Voltaren 1% topical gel 1 application, Topically, 4 times a day, # 100 Gm, 0 Refills, Maintenance, 12/20/22 8:43:00 AM EDT, Gel, Partial fill upon patient request if the prescription is for a schedule II opioid drug. Start Date: 12/20/22 Status: Ordered Medication Dispense Status: Completed Quantity: 100.0 Unit: g Total Allowed Fills: 1 Fills Dispensed: 0 Zepbound 2.5 mg/0.5 mL subcutaneous solution = 2.5 mg, Subcutaneous Injection, Every week, rotate injection sites, # 2 mL, 1 Refills, Maintenance, 07/27/24 12:41:00 PM EST, Solution, [facility] #[id number], Partial fill upon patient request if the prescription is for a schedule II opioid drug. LET ME KNOW IF PA IS NEEDED, 157, cm, 07/02/24 10:01:00 EDT, Height, 144, kg, 07/02/24 10:01:00 EDT, Dry Weight Start Date: 07/27/24 Status: Ordered Medication Dispense Status: Completed Quantity: 2.0 Unit: mL Total Allowed Fills: 2 Fills Dispensed: 0 zinc oxide 40% topical ointment 1 application, Topically, 4 times a day, PRN Rash, Apply to affected skin, # 454 Gm, 0 Refills, Maintenance, 08/06/24 1:30:00 PM EST, Ointment, [facility] #[id number], Partial fill upon patient request if the prescription is for a schedule II opioid drug., 1 application Topically 4 times a day,P RN:Rash,Instr:Apply to affected skin, 157, cm, 07/02/24 10:01:00 EDT, Height, 144, kg, 07/02/24 10:01:00 EDT, Dry Weight Start Date: 08/06/24 Status: Ordered Medication Dispense Status: Completed Quantity: 454.0 Unit: g Total Allowed Fills: 1 Fills Dispensed: 0 Problem List Condition Confirmation Course Effective Dates [...] Smoking Status Former smoker entered on: 05/30/15 Sexual Orientation Self described orien tation: ; Straight or heterosexual Sex Female Sex Representation Female (finding) Patient Care team information Care Team Personnel Name: Caitie Sinha RN Position: [facility] Nurse Member Role: Primary Care Nurse Name: Shannan Winston RN Position: [facility] RN Member Role: Primary Care Nurse Name: Alicia Mcclellan RN Position: [facility] Outreach Member Role: Primary Care Nurse Name: Caridad Louis MD Position: Reference Physician Member Role: PCP Address: [address] [place] [address] [address] [facility] [place] [address]- Telecom: Name: Heather Zavala RN Position: [facility] SN RN Member Role: Primary Care Nurse Name: Jennifer Martinez RN Position: [facility] OB RN Member Role: Primary Care Nurse Name: Kristin Shaw RN Position: [facility] SN RN Member Role: Primary Care Nurse Name: Jo-Ann Glass RN Position: [facility] AMB Nurse Member Role: Primary Care Nurse Name: Desi Garcia RN Position: [facility] RN Member Role: Primary Care Nurse Name: Lolly Chapman RN Position: [facility] RN Member Role: Primary Care Nurse Name: Zhanna De Souza RN Position: [facility] RN Member Role: Primary Care Nurse Name: Allison Lundy RN Position: [facility] RN Member Role: Primary Care Nurse Care Team Related Persons Name: DUSTY QUAN Name: KIZZY QUAN Insurance Providers Guarantor name: DIGNA [facility] Information #: 1 Payer: BLUE BENEFIT [employer] PPO Payer Identifier: NA Member Number: [id number] Group Number: [id number] Subscriber Identifier: NA Relationship to Subscriber: self Coverage Type: BLUE CROSS/BLUE SHIELD Coverage Verification Date: NA Telecom: NA Address: NA
[2025-07-09 09:34] LABS: Alanine Aminotransferase 19 U/L (0-31); Albumin Level 5.0 g/dL (3.5-5.0); Alkaline Phosphatase 132 U/L (39-117); Anion Gap 16 (12-20); Aspartate Amino Transferase 25 U/L (5-31); Blood Urea Nitrogen 27 mg/dL (9-16); Calcium 9.4 mg/dL (8.4-10.2); Carbon Dioxide 25 mmol/L (22-29); Chloride 105 mmol/L (96-108); Estimated Glomerular Filt Rate > 60; Magnesium 2.7 mg/dL (1.6-2.6); Potassium 3.8 mmol/L (3.3-5.1); Sodium 142 mmol/L (135-145); Total Protein 8.4 g/dL (6.5-8.0)
[2025-07-09 09:38] LABS: NT Pro B Type Natriuretic Pept 45.0 pg/mL (<300)
== END 2025-07-09 08:25 | disposition home or self-care (01) ==
LOC: HO.LAB 08:24
PROVIDERS: Visit Provider Internal Medicine
DX: R06.09 Other forms of dyspnea (principal); R63.5 Abnormal weight gain; R73.09 Other abnormal glucose
CPT/HCPCS: 36415; 80053; 83735; 83880

== ENCOUNTER → 2025-07-19 08:32 | Outpatient (REF) | payer OTHER, SELFPAY ==
--- NOTE | 2025-07-19 09:05 | CA_ITS ---
Transthoracic Echocardiogram Patient (Last, First, Middle): Lisa Foss, Gender: F Date of : 1975 Age: 49 Procedure Date: 07/19/2025 Procedure Type: Transthoracic Echocardiogram Location: OP Height: 157. cm Weight: 157.85 kg BSA: 2.41 m2 Heart Rate: 80 bpm BP: 110 / 65 mmHg Gang Knife Fish Chopper: DAFNE Referring MD: Caridad Louis MD Symptoms: R06.09 - Other forms of dyspnea Study Quality: Adequate ECG Rhythm: Sinus Conclusions: - The left ventricular systolic function is normal. The visually estimated ejection fraction is between 65-70%. - No obvious valvular pathology seen on this study. Findings Left Ventricle Normal left ventricular cavity size. The left ventricular systolic function is normal. The visually estimated ejection fraction is between 65-70%. There is no evidence of regional wall motion abnormalities. Diastolic function is normal for age. There is mild septal asymmetric hypertrophy. Right Ventricle Normal right ventricular cavity size and systolic function. Atria Both atria are normal in size. Aortic Valve There is mild calcification of the aortic valve. There is no aortic valve stenosis. There is no aortic valve regurgitation. Mitral Valve The mitral valve appears normal. There is no mitral valve regurgitation. There is no mitral valve stenosis. Pulmonic Valve The pulmonic valve is likely normal. Tricuspid Valve There is no tricuspid valve regurgitation. Tricuspid regurgitation envelope is inadequate for calculation of right ventricular systolic pressure. Great Vessels The sinuses of valsalva is normal in size. Venous The inferior vena cava is normal in size and collapses greater than 50% with inspiration. Pericardium/Pleural There is no evidence of pericardial effusion. Prior Study Comparison No significant change compared to prior study dated: 09/16/2019. In some views, wire like structure seen traversing across, suspect extracardiac. Recommendations, Care & Conclusions No obvious valvular pathology seen on this study. Measurements 2D Linear Measurements IVSd: 1.13 0.6-0.9/0.6-1.0 cm LVIDd: 4.66 3.9-5.3/4.2-5.9 cm LVIDd Index: 1.93 2.4-3.2/2.2-3.1 cm/m2 LVIDs: 2.64 2.0-3.6 cm LVPWd: 0.94 0.7-1.1 cm LA Diam: 4.10 2.7-3.8/3.0-4.0 cm LAIDs Index: 1.70 1.5-2.3 cm/m2 LV Mass: 212.20 67-162/88-224 g LV Mass Index: 88.05 43-95/49-115 g/m2 LVOT Diam: 2.20 3.0+(-)1.3 cm 2D Systolic Function EF 4C: 73.00 >55% EF 2C: 66.60 >55% EF BiP: 70.10 >55% Mitral Valve MV Pk E: 0.66 MV PK A: 0.91 MV Decel Time: 247.00 E/A: 0.70 E'Lateral: 9.03 E'Medial: 7.51 E/E' Med: 8.80 E/E' Lat: 7.40 PHT: 72.00 MVA PHT: 3.06 Decel Faulkner: 2.69 Aortic Valve AoV Pk Dorian: 1.66 AoV Mn Dorian: 1.11 AoV VTI: 0.29 AoV Pk Grad: 11.00 Aov Mn Grad: 6.00 JILLIAN Cont.VTI: 2.77 LVOT LVOT Pk Dorian: 1.11 LVOT Mn Dorian: 0.78 LVOT VTI: 0.21 LVOT Pk Grad: 5.00 LVOT Mn Grad: 3.00 LVOT Diam: 2.20 LVOT Area: 3.80 Diastolic Function MV Pk E: 0.66 MV Pk A: 0.91 E/A: 0.70 E'Medial: 7.51 E/E' Med: 8.80 E' Laterial: 9.03 E/E' Lat: 7.40 Right Ventricle TAPSE (mm): 32.30 TVS' Dorian: 16.10 Great Vessels Aorta Sinus of Valsalva: 3.00 2.0-3.5 cm Ao Asc: 3.70 2.1-3.4 cm Ao Arch: 2.90 Pulmonary Valve PV Pk Dorian: 1.14 Peak PV Grad: 5.00 Updated in Other Vendor System with Status of Final Maverick Gabriel MD electronically signed on 07/19/2025 10:53:52 AM with status of Final
== END ==
LOC: HO.CARD 08:32
PROVIDERS: PCP Internal Medicine; Visit Provider Internal Medicine
DX: R06.09 Other forms of dyspnea (principal)
CPT/HCPCS: 93306

== ENCOUNTER → 2025-07-19 09:05 | Outpatient (BNV) | payer OTHER, SELFPAY | PROVIDERS: PCP Internal Medicine; Visit Provider Internal Medicine | DX: I42.2 Other hypertrophic cardiomyopathy (principal); R06.09 Other forms of dyspnea | CPT/HCPCS: 93306 ==

== ENCOUNTER 2025-07-21 06:07 | Outpatient (REF) | payer OTHER, SELFPAY ==
[2025-07-21 07:52] LABS: Magnesium 2.2 mg/dL (1.6-2.6)
[2025-07-21 08:04] LABS: Ferritin 26 ng/mL (10-250)
[2025-07-21 08:20] LABS: Folate 10.4 ng/mL (> or = 4.0); Vitamin B12 275 pg/mL (200-900)
--- OUTSIDE RECORDS SUMMARY | 2025-07-21 14:39 | XMS_ITS | Data Portability ---
Author Organization [place] [facility] Conrado Osullivan AONE [place] Address [address] [place] [address] Assessment Encounter Date Assessment Date Assessment LastModified [...] suspension for injection 2022 023 [email or web address] [id number], [phone] [place], [address], 3 13:18:54 lidocaine (PF) 10 mg/mL (1 %) injection solution 2022 023 [email or web address] [id number], [phone] [place], [address], 3 13:18:54 Patient TargetsNo targets recorded. Patient [...] lateral collateral ligament of right knee joint 5880400939438 9104 Active 2022 EMELINA SANTOS PA-C [address],[place] [facility], [place], [address], [place] [facility] [place], P 3 19:51:21 Pain of right calf 4350501275761 103 Active 2022 EMELINA SANTOS PA-C [address],[place] [facility], [place], [address], [place] [facility] [place], P 3 13:11:32 Problem Notes None recorded. Procedures Surgical History Date Name Laterality Status Provider Name and Address Organization Details Recorded Time 01/02/2023 Knee Joint/Burs a Asp & Inj completed EMELINA SANTOS PA-C [address],[place] [facility], [place], [address], [place] [facility] [place], P 01/02/2023 13:19:35 12/19/2022 Knee Joint/Burs a Asp & Inj completed EMELINA SANTOS PA-C [address], [place], [address], [place] [facility] [place], [facility] 12/19/2022 19:56:53 Imaging Results None recorded. Procedure Notes None recorded. Medical Equipment None Reported. Allergies Allergen ID Allergen Name Allergen Category Reaction Reaction Severity Criticality Documentation Date Start Date Code Code System Note Provider Name and Address Organization Details Recorded Time 141311 nitrofura ntoin medicatio n Not available Not available Not available 05/25/20252018 7454 RxNorm React ion: Anaph ylaxi s, sever ity: Unkno wn;Re actio n: Itchi ng, sever ity: Unkno wn;Re actio n: Other (See Comme nts), sever ity: Unkno wn;Di fficu lty breat noe Not Available [facility] 5 01:32:16 2631 Non-stero idal anti-infl ammatory agent (substanc e) medicatio n Not available Not available Not available 12/19/2022 11866 5008 SNOMED Nancy Anne null, [place] [facility] [place], P 3 14:47:20 2632 Macrobid medicatio n Not available Not available Not available 12/19/2022 74544 1 RxNorm Nancy Anne null, [place] [facility] [place], P 3 14:47:26 Medications Name Sig Start [...] Updated DateTime 12/19/2022 157.48 cm 57.8 kg/m2 554312.[address] [place] [facility] [place], P 12/19/2022 14:48:12 Social History None recorded. Functional Status Question Answer Note LastModified by Organizat ion Details LastModified Time Do you use any illicit or recreational drugs? No Information not available 12/19/2022 Do you or have you ever used any other forms of tobacco or nicotine? No [email or web address] Information not available 12/19/2022 What is your level of alcohol consumption? None [email or web address] Information not available 12/19/2022 Mental Status None recorded. Family History Relationship Description Onset Age of this Age Resolved Age Notes LastModified by Organization Details LastModified Time Mother Family history of malignant neoplasm [email or web address] Not available 2022 14:48:51 Medical History Condition Response Anemia Y Asthma Y Hypertension Y Gynecological HistoryNo gynecological history recorded. Obstetrics History GPAL:G 0 P 0 0 0 0 Past Encounters Encounter ID Performer Location Encounter Start Date Encounter Closed Date Diagnosis/Indication Diagnosis SNOMED-CT Code Diagnosis ICD10 Code Diagnosis IMO Codes Diagnosis Note [id number] SHANNAN SANDHU [facility] [address] [facility] [address] [place] [address] 12/19/2022 14:32:55 12/19/2022 15:14:51 Sprain of lateral collateral ligament of right knee joint [id number] 7806356 S83.91XA [id number] SHANNAN SANDHU [facility] [address] [facility] [address] [place] [address] 01/02/2023 12:52:58 01/02/2023 13:20:33 Pain of right calf 2641327770 073737 M79.661 Pain of ri ght knee joint 9237203127 89137 M25.561 Health Concerns Section Related Observation LastModified by Organization Detai ls LastModified Time None Recorded Concern Status LastModified by Organization Details LastModified Time None Recorded Advance Directives Directive None Recorded Payers Insurance Date Sequence Insurance Name Policy Number Policy Canales Covered Member ID Canales Member ID Guarantor Name 01/27/2023 1 ARA (POS) [id number] Digna Foss [id number] Digna Foss Notes Date Note Type [...] I personally reviewed these x-rays in the [facility] PACS system and agree with the below noted findings. [facility] [address] [place] [address] Pat ient: DIGNA FOSS/Age/Sex: 1975 - FUnit#: [id number] Location/Status: SPER/PRE ERAccount#: [id number] Mnemonic/Ordering Site: [facility] Phys[facility]: ER,DOC CR Knee RT 4 or [...] findings. Moderately severe osteoarthritis, mildlyprogressive since 04/20/2014.Code 55224Aosxhuiyd Physician: TAPAN LOVETT MDElectronically Signed by: TAPAN LOVETT [facility] Date/Time: 12/17/22804Sign date/Time: 12/17/22 08 EMELINA SANTOS PA-C [address] [place] [address], [address], [place] [facility] [place], P 12/19/2022 19:58:33 3 text/html Assessment & [...] family history of DVT. EMELINA SANTOS PA-C [address] [place] [address],[facility] [address], [place], [address], [place] [facility] [place], P 01/02/2023 13:20:34 OBGyn Episode No OBEpisode recorded.
--- OUTSIDE RECORDS SUMMARY | 2025-07-21 14:39 | XMS_ITS | Data Portability ---
Author Organization [place] [facility] Address [address] [place] [address] Care Team Providers Care Retail Pricing Coordinator Name Role Phone JOÃO PLUNKETT Primary Care [...] ionized calcium, serum or plasma 019 [email or web address] [facility], [address] [place] [address], [address], 9 14:46:59 Referral None recorded. Procedures None recorded. Surgeries None recorded. Imaging None recorded. Medication Orders None recorded. Patient TargetsNo targets recorded. Patient Instructions Encounter Date Encounter Id Patient Instructions Last Modified By Organization Details Last Modified Time 06/11/2019 [id number] [facility] came to your home for evaluation of [...] with your PCP. You are seeing the automation test developer tomorrow for further evaluation of your blood pressure concerns. We did not give you any prescriptions. Thank you for your visit with [facility] today. We cannot always find the exact [...] in your condition between 8am-10pm, please call [facility] at [phone] to help navigate your care. Not available 06/11/2019 14:46:59 Reason for Referral None Reported. Results Created Date Observation Date Name Description Value Unit Range Abnormal Flag Note LastModifiedBy Organization Detail LastModifiedTime 06/11/2006/11/2019 BMP + ioniz ed calci um, serum or plasm a Na 142 mmol/ L 138-14 6 Not Available [facility] - [facility] [address] [place], [address], 06/11/2019 14:41:52 06/11/2006/11/2019 BMP + ioniz ed calci um, serum or plasm a K 3.9 mmol/ L 3.5-4. 9 Not Available [facility] [address] [place], [address], 06/11/2019 14:41:52 06/11/2006/11/2019 BMP + ioniz ed calci um, serum or plasm a cL 108 mmol/ L 98-109 Not Available [facility] - Home [address] [place], [address], 06/11/2019 14:41:52 06/11/2006/11/2019 BMP + ioniz ed calci um, serum or plasm a ica 1.18 mmol/ L 1.12-1 .32 Not Available [facility] - Home [address] [place], [address], 06/11/2019 14:41:52 06/11/2006/11/2019 BMP + ioniz ed calci um, serum or plasm a TCO2 22 mmol/ L 24-29 Not Available [facility] - Home [address] [place], [address], 06/11/2019 14:41:52 06/11/2006/11/2019 BMP + ioniz ed calci um, serum or plasm a glu 160 mg/dL 70-105 Not Available [facility] - Home [address] [place], [address], 06/11/2019 14:41:52 06/11/2006/11/2019 BMP + ioniz ed calci um, serum or plasm a BUN 20 mg/dL 8-26 Not Available [facility] - Home [address] [place], [address], 06/11/2019 14:41:52 06/11/2006/11/2019 BMP + ioniz ed calci um, serum or plasm a crea 0.5 mg/dL .6-1.3 Not Available [facility] - Home [address] [place], [address], 06/11/2019 14:41:52 06/11/2006/11/2019 BMP + ioniz ed calci um, serum or plasm a HCT 37 %_pcv 38-51 Not Available [facility] - Home [address] [place], [address], 06/11/2019 14:41:52 06/11/2006/11/2019 BMP + ioniz ed calci um, serum or plasm a Hb 12.6 g/dL 12-17 Not Available Spr - Home [address], [place], [address], 06/11/2019 14:41:52 06/11/20 19 06/11/2019 BMP + ioniz ed calci um, serum or plasm a angap 17 mmol/ L 10- Not Available Spr - Home [address], [place], [address], 06/11/2019 14:41:52 Result Notes None recorded. Procedures Surgical History Date Name Laterality Status Provider Name and Address Organization Details Recorded Time 06/11/20 19 Venipuncture - completed MOISES HINTON NP [address] [place], [address], [place] [facility] 06/11/2019 14:41:40 Imaging Results None recorded. Procedure Notes None recorded. Medical Equipment None Reported. Allergies Allergen ID Allergen Name Allergen Category Reaction Reaction Severity Criticality Documentation Date Start Date Code Code System Note Provider Name and Address Organization Details Recorded Time 24985 Macrobid medicatio n other Not available Not available 06/11/2019 40768 1 RxNorm MOISES HINTON NP [address] [place], [address], [place] [facility] 9 14:28:29 Medications Name Sig Start [...] Status Never Smoker MOISES HINTON NP [address] [place], [address], [place] [facility] 06/11/2019 14:31:22 What Was The Date Of Your Most Recent Tobacco Screening? 06/11/2019 Information not available 06/12/2019 Sex: Unknown Functional Status None recorded. Mental Status None recorded. Family History Nothing Reported. Medical History Condition Response High Cholesterol N Asthma Y Hypertension N Gynecological HistoryNo gynecological history recorded. Obstetrics History GPAL:G 0 P 0 0 0 0 Past Encounters Encounter ID Performer Location Encounter Start Date Encounter Closed Date Diagnosis/Indication Diagnosis SNOMED-CT Code Diagnosis ICD10 Code Diagnosis IMO Codes Diagnosis Note [id number] MOISES HINTON NP [facility] [address] [place] [address] 06/11/2019 14:25:37 06/11/2019 18:00:59 Dizziness [id number] R42 Health Concerns Section Related Observation LastModified by Organization Detai ls LastModified Time None Recorded Concern Status LastModified by Organization Details LastModified Time None Recorded Advance Directives Directive None Recorded Payers Insurance Date Sequence Insurance Name Policy Number Policy Canales Covered Member ID Canales Member ID Guarantor Name 06/11/2019 1 [facility] Lisa Dewaynellato [id number] Lisa Dewaynellato 06/11/2019 1 *SELF PAY* Lisa Stellato [id number] Lisa Stellato 06/11/2019 1 [facility] Lisa Stellato [id number] Lisa Stellato Notes Date Note Type [...] intermittent nausea. She has gone to the [facility] for IV fluids before. SHe is tolerating PO fluids and food. No shortness of breath, chest pain, palpitations, abdominal pain.She has the merena and has only occasional irregular spotting with it.No real menses for the past 4 years. MOISES HINTON NP [address] [place], [address], [place] [facility] 06/11/2019 16:13:47 OBGyn Episode No OBEpisode recorded.
[2025-07-25 09:08] LABS: Vitamin B5 (Pantothenic Acid) <=40 ng/mL (<275)
[2025-07-25 20:48] LABS: Vit B3 - Nicotinic Acid <20 ng/mL (see note)
== END 2025-07-21 06:08 | disposition home or self-care (01) ==
LOC: HO.LAB 06:07
PROVIDERS: PCP Internal Medicine; Visit Provider Internal Medicine Gastroenterology
DX: E83.52 Hypercalcemia (principal); E46 Unspecified protein-calorie malnutrition; R11.0 Nausea; R19.7 Diarrhea, unspecified
CPT/HCPCS: 36415; 82306; 82550; 82607; 82728; 82746; 83735; 84100; 84207; 84425; 84446; 84590; 84591; 84597; 84630

== ENCOUNTER 2025-08-11 06:08 | Outpatient (REF) | payer OTHER, SELFPAY ==
--- OUTSIDE RECORDS SUMMARY | 2025-08-11 06:11 | XMS_ITS | Encounter Summary ---
Author Organization [facility] Address [address] [place] [address] Care Team Providers Care Financial Institution Branch Manager Name Role Phone Cariadd Louis MD Primary Care Provider [phone]- [phone] Encounter Details Date Type Department Care Team (Late st Contact Info) Description 09/03/2024 Quofore Message [facility] Financial Counseling Department [address] [place] [id number] Mychart, Generic Provider [address] [place], [place] [id number] Financial Assistance Social History Tobacco Use Types [...] on filedocumented in this encounter Care Teams Financial Institution Branch Manager Relationship Specialty Start Date End Date Caridad Louis MD [address] [place] [address] PCP - General Internal Medicine 05/05/24 documented as of this encounter
--- OUTSIDE RECORDS SUMMARY | 2025-08-11 06:11 | XMS_ITS | Clinical Summary ---
Author Organization [facility] Prior to 01/30/[address] [place] [address] Care Team Providers Care Bag Loader Name Role Phone Caridad Louis MD Primary Care Provider [phone]- [phone] Allergies Active Allergy Reactions Criticality Noted Date [...] age to complete this topic Care Teams Bag Loader Relationship Specialty Start Date End Date Caridad Louis MD [address] [place] [address] PCP - General Internal Medicine 12/21/21
--- OUTSIDE RECORDS SUMMARY | 2025-08-11 06:11 | XMS_ITS | Data Portability ---
Author Organization [place] [facility] Address [address] [place] [phone] Care Team Providers Care Lard Maker Name Role Phone JOÃO PLUNKETT Primary Care [...] ionized calcium, serum or plasma [id number] [email or web address] [facility], [address] [place] [address], [phone], 9 14:46:59 Referral None recorded. Procedures None recorded. Surgeries None recorded. Imaging None recorded. Medication Orders None recorded. Patient TargetsNo targets recorded. Patient Instructions Encounter Date Encounter Id Patient Instructions Last Modified By Organization Details Last Modified Time 06/11/2019 [id number] [facility] came to your home for evaluation of [...] with your PCP. You are seeing the technical sales associate tomorrow for further evaluation of your blood pressure concerns. We did not give you any prescriptions. Thank you for your visit with [facility] today. We cannot always find the exact [...] in your condition between 8am-10pm, please call [facility] at [phone] to help navigate your care. Not available 06/11/2019 14:46:59 Reason for Referral None Reported. Results Created Date Observation Date Name Description Value Unit Range Abnormal Flag Note LastModifiedBy Organization Detail LastModifiedTime 06/11/2006/11/2019 BMP + ioniz ed calci um, serum or plasm a Na 142 mmol/ L 138-14 6 Not Available [facility] - [facility] [address] [place], [address], 06/11/2019 14:41:52 06/11/2006/11/2019 BMP + ioniz ed calci um, serum or plasm a K 3.9 mmol/ L 3.5-4. 9 Not Available [facility] [address] [place], [address], 06/11/2019 14:41:52 06/11/2006/11/2019 BMP + ioniz ed calci um, serum or plasm a cL 108 mmol/ L 98-109 Not Available [facility] - [facility] [address] [place], [address], 06/11/2019 14:41:52 06/11/2006/11/2019 BMP + ioniz ed calci um, serum or plasm a ica 1.18 mmol/ L 1.12-1 .32 Not Available [facility] [address] [place], [address], 06/11/2019 14:41:52 06/11/2006/11/2019 BMP + ioniz ed calci um, serum or plasm a TCO2 22 mmol/ L 24-29 Not Available [facility] - Home [address] [place], [address], 06/11/2019 14:41:52 06/11/2006/11/2019 BMP + ioniz ed calci um, serum or plasm a glu 160 mg/dL 70-105 Not Available [facility] - [facility] [address] [place], [address], 06/11/2019 14:41:52 06/11/2006/11/2019 BMP + ioniz ed calci um, serum or plasm a BUN 20 mg/dL 8-26 Not Available [facility] - [facility] [address] [place], [address], 06/11/2019 14:41:52 06/11/2006/11/2019 BMP + ioniz ed calci um, serum or plasm a crea 0.5 mg/dL .6-1.3 Not Available [facility] - [facility] [address] [place], [address], 06/11/2019 14:41:52 06/11/2006/11/2019 BMP + ioniz ed calci um, serum or plasm a HCT 37 %_pcv 38-51 Not Available [facility] - Home [address] [place], [address], 06/11/2019 14:41:52 06/11/2006/11/2019 BMP + ioniz ed calci um, serum or plasm a Hb 12.6 g/dL 12-17 Not Available [facility] - [facility] [address], [place], [address], 06/11/2019 14:41:52 06/11/20 19 06/11/2019 BMP + ioniz ed calci um, serum or plasm a angap 17 mmol/ L 10- Not Available [facility] - Home [address], [place], [address], 06/11/2019 14:41:52 Result Notes None recorded. Procedures Surgical History Date Name Laterality Status Provider Name and Address Organization Details Recorded Time 06/11/20 Venipuncture - completed MOISES HINTON NP [address] [place], [address], [place] [facility] 06/11/2019 14:41:40 Imaging Results None recorded. Procedure Notes None recorded. Medical Equipment None Reported. Allergies Allergen ID Allergen Name Allergen Category Reaction Reaction Severity Criticality Documentation Date Start Date Code Code System Note Provider Name and Address Organization Details Recorded Time 25496 Macrobid medicatio n other Not available Not available 06/11/2019 70614 1 RxNorm MOISES HINTON NP [address] [place], [address], [place] [facility] 14:28:29 Medications Name Sig Start Date Stop [...] Not Available Vitals Date Recorded Oxygen saturation Heart rate Body temperature Respiratory rate Systolic And Diastolic Provider Name and Address Organization Details Last Updated DateTime 9 98 % 68 /min 97.8 [degF] 16 /min 132/82 mm[Hg] Not Available [facility] 14:33:29 Social History Question Answer Notes LastModified by Organizat ion Details LastModified Time Tobacco Smoking Status Never Smoker MOISES HINTON NP [address] [place], [address], [place] [facility] 06/11/2019 14:31:22 What Was The Date Of [...] ICD10 Code Diagnosis IMO Codes Diagnosis Note [id number] MOISES HINTON NP FORMER[facility] NAMED [facility] [address] [place] [address] 06/11/2019 14:25:37 06/11/2019 18:00:59 Dizziness 551200738 R42 Health Concerns Section Related Observation LastModified by Organization Detai ls LastModified Time None Recorded Concern Status LastModified by Organization Details LastModified Time None Recorded Advance Directives Directive None Recorded Payers Insurance Date Sequence Insurance Name Policy Number Policy Canales Covered Member ID Cnaales Member ID Guarantor Name 06/11/2019 1 [facility] Lisa Stellato [id number] Lisa Stellato 06/11/2019 1 *SELF PAY* Lisa Stellato [id number] Lisa Stellato 06/11/2019 1 [facility] Lisa Stellato [id number] Lisa Stellato Notes Date Note Type [...] menses for the past 4 years. MOISES HINTON, MEGHANA [address], [place], [address], [place] [facility] 06/11/2019 16:13:47 OBGyn Episode No OBEpisode recorded.
--- OUTSIDE RECORDS SUMMARY | 2025-08-11 06:12 | XMS_ITS | Encounter Summary ---
Author Organization [facility] Address [address] [facility] [address] [place] [phone] Phone Care Team Providers Care Certified Tower Climber Name Role Phone Caridad Louis MD Primary Care Provider + Reason for Referral * Consultation (Elective) - Closed Specialty Diagnoses / Procedures Referred By Megha franco Referred To Contact Neurology Diagnoses Encounter for consultation System, Provider Not In, PhD [id number] [place] [phone] Phone: tel: Referral ID Status Reason Start Date Expiration Date Visits Re quested Visits Authorized [id number] Closed 10/29/2018 10/29/2019 1 1 Encounter Details Date Type Department Care Team (Late st Contact Info) Description 10/29/2018 Transcribe Orders [facility] Department of Neurology [address] [place] [address], [address] Floor, [address] [place] [address] Caridad Louis MD [address] [place] [phone] Encounter for consultation (Primary Dx) Social History [...] Diagnoses Orde r Schedule Ambulatory referral to [facility] Neurology Outpatient Referral Routine Encounter for consultation Ordered: 10/29/2018 documented as of this encounter Visit Diagnoses Diagnosis Encounter for consultation- Primary documented in this encounter Care Teams Certified Tower Climber Relationship Specialty Start Date End Date Caridad Louis MD PCP - General Internal Medicine 05/01/18 documented as of this encounter Additional Source Comments The information contained in this document represents components of the legal health record. It is not the complete legal health record.[facility]
--- OUTSIDE RECORDS SUMMARY | 2025-08-11 06:12 | XMS_ITS | Patient Health Record ---
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) Active confirmed Problem Body mass index 40+ - morbidly obese (557521961) Body mass index [BMI] 50.0-59.9, adult (Z68.43) Active confirmed Plan Of Treatment No Information Insurance Providers Payer Name Payer Address Payer Phone Subscriber Number Group Number Insured Name Patient Relationship to Insured Coverage Start Date Coverage End Date [employer] [address] [address] [place] [phone] [id number] Lisa Foss Self - patient is the [...] following gastric bypass COVID vaccinated X 2 ([employer]) and [address] ([employer]) Surgical History Surgery Date(Month/Year) colonoscopy 08/24/2020, 11/27/2016, [...]
--- OUTSIDE RECORDS SUMMARY | 2025-08-11 06:12 | XMS_ITS | Clinical Summary ---
Author Organization [facility] Address [address] [facility] [address] [place] [phone] Phone Care Team Providers Care Supervisor Shipping Name Role Phone Caridad Louis MD Primary [...] huff Payer ID:Not on file Type:PPO Address: [place] [id number] GENERIC COMMERCIAL GENERIC COMMERCIAL GENERIC COMMERCIAL GENERIC COMMERCIAL GENERIC COMMERCIAL GENERIC COMMERCIAL GENERIC COMMERCIAL GENERIC COMMERCIAL Care Teams Supervisor Shipping Relationship Specialty Start Date End Date Caridad Louis MD PCP - General Internal Medicine 05/01/18 Additional Source Comments The information contained in this document represents components of the legal health record. It is not the complete legal health record.[facility]
--- OUTSIDE RECORDS SUMMARY | 2025-08-11 06:12 | XMS_ITS | Clinical Summary ---
Author Organization [facility] Address [address] [place] [address] Phone Care Team Providers Care Functional Mental Disability Teacher Name Role Phone Caridad Louis MD Primary Care Provider [phone] Allergies Active Allergy Reactions Criticality Noted Date [...] day for 7 days. 7 each 5 Active montelukast (SINGULAIR) 10 mg tablet Take 1 tablet (10 mg total) by mouth at bedtime. 30 each 5 Active Active Problems Problem Noted Date Diagnosed Date Asthma exacerbation 07/03/2025 Encounters Date Type Department Care Team Description 07/03/2025 9:08 AM EDT - 07/04/2025 11:29 AM EST Hospital Encounter [facility] Urology Unit [address] [place] [id number] Jennifer Mendes MD Bukalo, Nermina, MD Alam, Aroosa, MD Mild intermittent asthma with exacerbation (Primary Dx); Shortness of breath; Bilateral lower extremity edema Discharge Disposition: Home or Self Care from Last 3 Months Surgical History Surgery Date Site/Laterality Comments COLONOSCOPY PROCEDURE: HISTORICAL COLONOSCOPY; COMMENT: 08/24/20, 11/27/16, 04/2013, 2007 ESOPHAGOGASTRODUODENOSCOPY 10/24/2018 PROCEDURE: VT ESOPHAGOGASTRODUODENOSCOPY TRANSORAL DIAGNOSTIC OTHER SURGICAL HISTORY 03/10/2018 PROCEDURE: VT RPR PARAESOPH HIATAL HERNIA W/LAPT W/O MESH OTHER SURGICAL HISTORY 05/23/2017 PROCEDURE: VT ENDOSCOPY UPPER SMALL INTESTINE BLADDER SURGERY 2016 PROCEDURE: HISTORICAL BLADDER SURGERY; COMMENT: Implantation of electronic stimulator ESOPHAGOGASTRODUODENOSCOPY 02/20/2016 PROCEDURE: VT ESOPHAGOGASTRODUODENOSCOPY TRANSORAL DIAGNOSTIC OTHER SURGICAL HISTORY 11/27/2016 PROCEDURE: VT ENDOSCOPY UPPER SMALL INTESTINE OTHER SURGICAL HISTORY 05/01/2012 PROCEDURE: VT EGD FLEXIBLE TRANSNASAL W/BIOPSY SINGLE/MULTIPLE CHOLECYSTECTOMY 06/02/2010 PROCEDURE: VT LAPAROSCOPY SURG CHOLECYSTECTOMY OTHER SURGICAL HISTORY 2000 PROCEDURE: VT LAPS GSTR RSTCV PX W/BYP ANDREW-EN-Y LIMB <150 CM EYE SURGERY 1979 Right PROCEDURE: HISTORICAL EYE SURGERY; COMMENT: Right eye strabismus surgery for amblyopia GASTRIC BYPASS PROCEDURE: VT GASTRIC RSTCV W/BYP W/SM INT RCNSTJ LIMIT [...] swelling LUQ pain DX:LUQ pain Mood disorder ([facility] V24) DX:M ood disorder ([facility]) Nausea DX:Nausea Neuropathy DX:Neuropathy Obstructive sleep apnea DX:Obstr uctive sleep apnea Otitis media of left ear DX:Otit is media of left ear Pneumonia DX:Pneumonia Recurrent UTI DX:Recurrent UTI Seasonal allergic rhinitis DX:Se asonal allergic rhinitis Severe obesity ([facility] V24, [facility] V28) DX:Severe obesity ([facility]) Thrombocytopenia ([facility] V24) D X:Thrombocytopenia ([facility]) Vaginal discharge DX:Vaginal dis charge Weight gain following gastri c bypass surgery DX:Weight gain following gas tric bypass surgery Chest pain DX:Chest pain Non-cardiac chest pain DX:Non-ca rdiac chest pain Rectovaginal fistula DX:Rectovag inal fistula Low back pain DX:Low back pain Morbid obesity with BMI of 5 0.0-59.9, adult ([facility] V24, [facility] V28) DX:Morbid obesity wit h BMI of 50.0-59.9, adult ([facility]) Family History Medical History Relation Name [...] 07/03/2025 9:05 AM EDT Plan of Treatment Upcoming Encounters Date Type Department Care Team (Late st Contact Info) Description 09/08/2025 2:30 PM EST Ancillary Procedure [facility] [address] [place] [address] Health Maintenance Due Date Last Done Comments [...] Hold for add-ons. 07/04/2025 8:01 AM EST [facility] Comment:Auto resulted. Blood Venous blood specimen / Unknown Venipuncture / Unknown 07/04/2025 5:42 AM EST 07/04/2025 6:49 AM EST us Marimar Moncada MD LAB BLOOD ORDERABLES Final Resul t [facility] [address] [place] [address], [place] [phone] * (ABNORMAL) Basic metabolic panel (07/04/2025 5:42 AM EST) Sodium 140 133 - 145 mmol/L LAB CHEMISTRY METHOD 07/04/2025 7:33 AM [facility] Potassium 4.4 3.5 - 5.5 mmol/L LAB CHEMISTRY METHOD 07/04/2025 7:33 AM [facility] Chloride 106 96 - 110 mmol/L LAB CHEMISTRY METHOD 07/04/2025 7:33 AM [facility] CO2 28 21 - 32 mmol/L LAB CHEMISTRY METHOD 07/04/2025 7:33 AM [facility] Anion Gap 6 3 - 11 LAB CHEMISTRY METHOD 07/04/2025 7:33 AM [facility] Glucose 106(H) 70 - 100 mg/dL LAB CHEMISTRY METHOD 07/04/2025 7:33 AM [facility] BUN 14 5 - 25 mg/dL LAB CHEMISTRY METHOD 07/04/2025 7:33 AM [facility] Creatinine 0.76 0.50 - 1.10 mg/dL LAB CHEMISTRY METHOD 07/04/2025 7:33 AM [facility] eGFR 96 >=60 mL/min/1. 73m2 LAB CHEMISTRY METHOD 07/04/2025 7:33 AM [facility] Comment:Calculation based on the Chronic Kidney Disease Epidemiology Collaboration (CKD-EPI) equation refit without adjustment for race. BUN/Creatinine Ratio 18.4 LAB CHEMISTRY METHOD 07/04/2025 7:33 AM [facility] Calcium 8.9 8.5 - 10.5 mg/dL LAB CHEMISTRY METHOD 07/04/2025 7:33 AM EST [facility] Blood Venous blood specimen / Unknown Venipuncture / Unknown 07/04/2025 5:42 AM EST 07/04/2025 6:47 AM EST us Cynthia ANSARI LAB BLOOD ORDERABLES Final Result [facility] [address] [place] [address], [place] [phone] * (ABNORMAL) Urinalysis with reflex microscopic and culture (07/03/2025 4:40 PM EDT) Specific [place] Urine 1.018 1.003 - 1.030 LAB URINALYSIS - AUTOMATED METHOD [facility]03[facility]2025 5:15 PM [facility] pH, Urine 6.0 5.0 - [...] - AUTOMATED METHOD 07/03/2025 5:15 PM EDT [facility] Blood, Urine Negative Negative LAB URINALYSIS - AUTOMATED METHOD 07/03/2025 5:15 PM EDT [facility] RBC, Urine 9.5(H) 0 - 4 /HPF LAB URINALYSIS - AUTOMATED METHOD 07/03/2025 5:15 PM EDT [facility] WBC, Urine 3.1 0 - 4 /HPF LAB URINALYSIS - AUTOMATED METHOD 07/03/2025 5:15 PM EDT [facility] Squamous Epithelial, Urine 53 0 - 60 /LPF LAB URINALYSIS - AUTOMATED METHOD 07/03/2025 5:15 PM T [facility] Bacteria, Urine Few(A) Negative /HPF LAB URINALYSIS - AUTOMATED METHOD 07/03/2025 5:15 PM [facility] Hyaline Casts, Urine 0.8 0 - 3 /LPF LAB URINALYSIS - AUTOMATED METHOD 07/03/2025 5:15 PM T [facility] Urine Urine specimen obtained by clean catch procedure / Unknown Non-blood Collection / Unknown 07/03/2025 4:40 PM EDT 07/03/2025 5:05 PM EDT Anisa ANSARI LAB URINE ORDERABLES Final R esult [facility] [address] [place] [address], * Goldberg urine culture tube (07/03/2025 4:40 PM EDT) Extra Tube Hold for add-ons. 07/03/2025 7:01 PM EDT [facility] Comment:Auto resulted. Urine Urine specimen obtained by clean catch procedure / Unknown Non-blood Collection / Unknown 07/03/2025 4:40 PM EDT 07/03/2025 5:05 PM EDT Anisa ANSARI LAB URINE ORDERABLES Final R esult [facility] [address] [place] [address], * (ABNORMAL) Culture urine (07/03/2025 4:40 PM EDT) Culture, Urine >=100,000 CFU/mL Escherichia coli(A) SOTO 07/05/2025 11:25 AM EST [facility] Comment: This is an edited result. Previous organism was Gram negative bacilli on 07/04/2025 at 1248 EST. Urine Urine specimen obtained by clean catch procedure / Unknown Non-blood Collection / Unknown 07/03/2025 4:40 PM EDT 07/03/2025 5:15 PM EDT Narrative [facility] - 07/05/2025 11:25 [...] MICROBIOLOGY - GENERAL O RDERABLES Final Result [facility] [address] [place] [address], [place] [phone] * ECG 12 lead (07/03/2025 3:48 PM EDT) Only the most recent of2 resultswithin the time period is included. Pathologist [facility] Ventricular Rate ECG 91 BPM GEMUSE Atrial Rate 91 BPM GEMUSE P-R Interval 178 ms GEMUSE QRS Duration 92 ms GEMUSE Q-T Interval 362 ms GEMUSE QTc 445 ms GEMUSE P Wave [place] 42 degrees GEMUSE R [place] -20 degrees GEMUSE T [place] 9 degrees GEMUSE ECG Interpretation Normal sinus rhythm Voltage criteria for left ventricular hypertrophy Abnormal ECG When compared with ECG of 03-JUL-2025 09:21, (unconfirmed) Poor data quality in current ECG precludes serial comparison Confirmed by Tigre SANDERS JOHN ([id number]) on 07/04/2025 4:35:00 PM GEMUSE 07/03/2025 3:48 PM EDT 07/04/2025 4:35 PM EST Cynthia ANSARI ECG ORDERABLES Final Resul t Performing Organization Address City/[facility]/ZIP Co de Phone Number GEMUSE * Troponin I high sensitivity (07/03/2025 11:12 AM EDT) Only the most recent of3 resultswithin the time period is included. [facility] High Sensitivity Troponin I 32 <=54 ng/L LAB CHEMISTRY METHOD 07/03/2025 12:31 PM EDT [facility] Blood Venous blood specimen / Unknown Venipuncture / Unknown 07/03/2025 11:12 AM EDT 07/03/2025 11:56 AM EDT Narrative [facility] - 07/03/2025 12:31 PM EDT High levels of biotin in samples may falsely decrease hsTroponin values. Use caution when interpreting hsTroponin results in patients taking biotin who exhibit renal impairment (eGFR <60) or in patients taking more than 20 mg/day of biotin. Anisa ANSARI LAB BLOOD ORDERABLES Final R esult [facility] [address] [place] [address], * CT Angio Chest wo and/or w [...] Signed Date: 07/03/2025 11:16 ET Workstation ID: [id number] Transcribed By: Self Edit Transcribed Date: 07/03/2025 [...] Signed Date: 07/03/2025 11:16 ET Workstation ID: [id number] Transcribed By: Self Edit Transcribed Date: 07/03/2025 11:08 ET Anisa ANSARI IMG CT PROCEDURES Final Resu lt * Respiratory virus panel molecular study (07/03/2025 10:33 AM EDT) Adenovirus Detection by PCR Not Detected Not Detected LAB MICROBIOLOGY METHOD 07/03/2025 11:44 AM EDT [facility] Influenza A PCR Not Detected Not Detected LAB MICROBIOLOGY METHOD 07/03/2025 11:44 AM EDT [facility] Influenza B PCR Not Detected Not Detected LAB MICROBIOLOGY METHOD 07/03/2025 11:44 AM EDT [facility] Coronavirus 229E Not Detected Not Detected LAB MICROBIOLOGY METHOD 07/03/2025 11:44 AM EDT [facility] Coronavirus HKU1 Not Detected Not Detected LAB MICROBIOLOGY METHOD 07/03/2025 11:44 AM EDT [facility] Coronavirus OC43 Not Detected Not Detected LAB MICROBIOLOGY METHOD 07/03/2025 11:44 AM EDT [facility] Coronavirus NL63 Not Detected Not Detected LAB MICROBIOLOGY METHOD 07/03/2025 11:44 AM EDT [facility] Parainfluenza Virus 1 Not Detected Not Detected LAB MICROBIOLOGY METHOD 07/03/2025 11:44 AM EDT [facility] Parainfluenza Virus 2 Not Detected Not Detected LAB MICROBIOLOGY METHOD 07/03/2025 11:44 AM EDT [facility] Parainfluenza Virus 3 Not Detected Not Detected LAB MICROBIOLOGY METHOD 07/03/2025 11:44 AM EDT [facility] Parainfluenza Virus 4 Not Detected Not Detected LAB MICROBIOLOGY METHOD 07/03/2025 11:44 AM EDT [facility] RSV PCR Not Detected Not Detected LAB MICROBIOLOGY METHOD 07/03/2025 11:44 AM EDT [facility] Human Metapneumovirus A and B Not Detected Not Detected LAB MICROBIOLOGY METHOD 07/03/2025 11:44 AM EDT [facility] Rhinovirus/Entero virus Not Detected Not Detected LAB MICROBIOLOGY METHOD 07/03/2025 11:44 AM EDT [facility] Bordetella pertussis Not Detected Not Detected LAB MICROBIOLOGY METHOD 07/03/2025 11:44 AM EDT [facility] Bordetella parapertussis Not Detected Not Detected LAB MICROBIOLOGY METHOD 07/03/2025 11:44 AM [facility] Mycoplasma pneumo by PCR Not Detected Not Detected LAB MICROBIOLOGY METHOD 07/03/2025 11:44 AM EDT [facility] Chlamydia pneumoniae Not Detected Not Detected LAB MICROBIOLOGY METHOD 07/03/2025 11:44 AM [facility] SARS COV-2 Not Detected Not Detected LAB MICROBIOLOGY METHOD 07/03/2025 11:44 AM [facility] Swab Both anterior nares / Unknown Non-blood Collection / Unknown 07/03/2025 10:33 AM EDT 07/03/2025 10:54 AM EDT [facility] - 07/03/2025 11:44 AM EDT Testing was performed using the [employer] Respiratory Pathogen PCR Assay. All results must [...] MICROBIOLOGY - GENERAL O RDERABLES Final Result [facility] [address] [place] [address], * XR Chest 2 Views (07/03/2025 10:12 [...] Signed Date: 07/03/2025 10:50 ET Workstation ID: [id number] Transcribed By: Self Edit Transcribed Date: 07/03/2025 [...] Signed Date: 07/03/2025 10:50 ET Workstation ID: [id number] Transcribed By: Self Edit Transcribed Date: 07/03/2025 [...] Signed Date: 07/03/2025 10:11 ET Workstation ID: [id number] Transcribed By: Self Edit Transcribed Date: 07/03/2025 [...] of duplex of the right lower extremity 5/3/23 was-no DVT TECHNIQUE: Real-time ultrasonography of the [...] Signed Date: 07/03/2025 10:11 ET Workstation ID: [id number] Transcribed By: Self Edit Transcribed Date: 07/03/2025 10:09 ET Anisa ANSARI CV VASCULAR PROCEDURES Final Result * (ABNORMAL) CBC auto differential (07/03/2025 9:41 AM EDT) WBC 7.4 4.8 - 10.8 K/mcL LAB HEMETOLOGY METHOD 07/03/2025 9:55 AM [facility] RBC 4.50 3.80 - 4.80 M/mcL LAB HEMETOLOGY METHOD 07/03/2025 9:55 AM [facility] Hemoglobin 11.8 11.5 - [...] 9:55 AM [facility] Eosinophils Relative 2.0 % LAB HEMETOLOGY METHOD 07/03/2025 9:55 AM [facility] Basophils Relative 0.5 % LAB HEMETOLOGY METHOD 07/03/2025 9:55 AM [facility] Immature Granulocytes Relative 0.5 % LAB HEMETOLOGY METHOD 07/03/2025 9:55 AM [facility] Neutrophils Absolute 4.57 1.50 - 7.00 K/mcL LAB HEMETOLOGY METHOD 07/03/2025 9:55 AM EDT [facility] Lymphocytes Absolute 2.05 1.00 - 5.00 K[facility] HEMETOLOGY METHOD 07/03/2025 9:55 AM EDT [facility] Monocytes Absolute 0.51 0.20 - 1.00 [facility] HEMETOLOGY METHOD 07/03/2025 9:55 AM EDT [facility] Eosinophils Absolute 0.15 0.00 - 0.50 [facility] HEMETOLOGY METHOD 07/03/2025 9:55 AM EDT [facility] Basophils Absolute 0.04 0.00 - 0.20 [facility] HEMETOLOGY METHOD 07/03/2025 9:55 AM EDT [facility] Immature Granulocytes Absolute 0.04(H) 0.00 - 0.03 [facility] HEMETOLOGY METHOD 07/03/2025 9:55 AM EDT [facility] Blood Venous blood specimen / Unknown Venipuncture / Unknown 07/03/2025 9:41 AM EDT 07/03/2025 9:47 AM EDT Jennifer Mendes MD LAB BLOOD ORDERABLES Final Resul t [facility] [address] [place] [address], * D-dimer, quantitative (07/03/2025 9:41 AM EDT) D-Dimer, Quant (D-DU) 230 <=230 ng/mL DDU LAB COAGULATION METHOD 07/03/2025 9:59 AM EDT [facility] Blood Venous blood specimen / Unknown Venipuncture / Unknown 07/03/2025 9:41 AM EDT 07/03/2025 9:47 AM EDT Narrative [facility] - 07/03/2025 9:59 AM EDT D-Dimer <230 ng/mL (D-Dimer units) is the threshold for exclusion of DVT/PE. D-Dimer may be elevated in: Critically ill, severely infected, trauma patients, DIC, acute CVA, acute [place], unstable angina, AF, old age, , and smoking. D-Dimer may be decreased with: Initiation of heparin therapy and oral anticoagulants. Anisa ANSARI LAB BLOOD ORDERABLES Final R esult Performing Organization Address [facility]/ZIP Co de Phone Number [facility] [address] [place] [address], [place] [phone] * hCG, serum, qualitative (07/03/2025 9:41 AM EDT) Pathologist [facility] hCG Qual Negative Negative 07/03/2025 10:11 AM EDT [facility] Blood Venous blood specimen / Unknown Venipuncture / Unknown 07/03/2025 9:41 AM EDT 07/03/2025 9:47 AM EDT Anisa ANSARI LAB BLOOD ORDERABLES Final R esult Performing Organization Address [facility] Co de Phone Number [facility] [address] [place] [address], [place] [phone] * B-type natriuretic peptide (07/03/2025 9:41 AM EDT) BNP <2 <=100 pcg/mL LAB CHEMISTRY METHOD 07/03/2025 10:34 AM EDT [facility] Blood Venous blood specimen / Unknown Venipuncture / Unknown 07/03/2025 9:41 AM EDT 07/03/2025 9:47 AM EDT Jennifer Mendes MD LAB BLOOD ORDERABLES Final Resul t Performing Organization Address City/[facility]/ZIP Co de Phone Number [facility] [address] [place] [address], [place] [phone] * Magnesium (07/03/2025 9:41 AM EDT) [facility] Magnesium 2.3 1.9 - 2.6 mg/dL LAB CHEMISTRY METHOD 07/03/2025 10:24 AM EDT [facility] Blood Venous blood specimen / Unknown Venipuncture / Unknown 07/03/2025 9:41 AM EDT 07/03/2025 9:47 AM EDT us Jennifer Mendes MD LAB BLOOD ORDERABLES Final Resul t Performing Organization Address City/[facility]/ZIP Co de Phone Number [facility] [address] [place] [address], [place] [phone] * Lipase (07/03/2025 9:41 AM EDT) [facility] Lipase 15 13 - 75 unit/L LAB CHEMISTRY METHOD 07/03/2025 10:24 AM EDT [facility] Blood Venous blood specimen / Unknown Venipuncture / Unknown 07/03/2025 9:41 AM EDT 07/03/2025 9:47 AM EDT us Jennifer Mendes MD LAB BLOOD ORDERABLES Final Resul t Performing Organization Address City/[facility]/ZIP Co de Phone Number [facility] [address] [place] [address], [place] [phone] * (ABNORMAL) Comprehensive metabolic panel (07/03/2025 9:41 AM EDT) [facility] Sodium 142 133 - 145 mmol/L LAB CHEMISTRY METHOD 07/03/2025 10:24 AM EDT [facility] Potassium 4.1 3.5 - 5.5 mmol/L LAB CHEMISTRY METHOD 07/03/2025 10:24 AM EDT [facility] Chloride 111(H) 96 [...] 10:24 AM [facility] AST (SGOT) 17 10 - 42 unit/L LAB CHEMISTRY METHOD 07/03/2025 10:24 AM [facility] ALT (SGPT) 22 10 - 60 unit/L LAB CHEMISTRY METHOD 07/03/2025 10:24 AM [facility] Alkaline Phosphatase 137(H) 42 - 121 unit/L LAB CHEMISTRY METHOD 07/03/2025 10:24 AM [facility] Total Protein 7.0 6.0 - 8.0 g/dL LAB CHEMISTRY METHOD 07/03/2025 10:24 AM [facility] Albumin 3.6 3.2 - 5.0 g/dL LAB CHEMISTRY METHOD 07/03/2025 10:24 AM EDT [facility] Total Bilirubin 0.4 0.0 - 1.4 mg/dL LAB CHEMISTRY METHOD 07/03/2025 10:24 AM EDT [facility] Blood Venous blood specimen / Unknown Venipuncture / Unknown 07/03/2025 9:41 AM EDT 07/03/2025 9:47 AM EDT us Jennifer Mendes MD LAB BLOOD ORDERABLES Final Resul t [facility] [address] [place] [address], from Last 3 Months Insurance [employer] [facility] Advance Directives * Full Code - Default [...] currently active code status orders. Care Teams Functional Mental Disability Teacher Relationship Specialty Start Date End Date Caridad Louis MD [address] [place] [address] PCP - General Internal Medicine 08/28/21
--- OUTSIDE RECORDS SUMMARY | 2025-08-11 06:12 | XMS_ITS | Encounter Summary ---
Author Organization [facility] Address [address] [place] [phone] Phone Care Team Providers Care Product Developer Name Role Phone Caridad Louis MD Primary Care Provider + Encounter Details Date Type Department Care Team (Late st Contact Info) Description 03/10/2019 Procedure Pass [facility] ENDO DEPT [address] [facility] [place] [address] Social History Tobacco Use Types Packs/Day Years [...] on filedocumented in this encounter Care Teams Product Developer Relationship Specialty Start Date End Date Caridad Louis MD PCP - General Internal Medicine 05/01/18 documented as of this encounter Additional Source Comments The information contained in this document represents components of the legal health record. It is not the complete legal health record.[facility]
--- OUTSIDE RECORDS SUMMARY | 2025-08-11 06:12 | XMS_ITS | Clinical Summary ---
Author Organization [facility] Address [address] [place] [address] Care Team Providers Care Properties Supervisor Name Role Phone Caridad Louis MD Primary Care Provider [phone] Allergies Active Allergy Reactions Criticality Noted Date [...] Vaccine, 23 Valent 07/16/2017 Pneumococcal conjugate PCV20,polysaccharide [id number] conjugate, adjuvant, PF (Prevnar 20) 12/20/2022 Tetanus [...] 2025 3, 06/12/2021, 06/04/2020, Additional history exists COVID-19 Vaccine (4 - 2024-2 6 season) 2025 06/24/2021, 09/20/2020, 08/30/2020 Diabetes Screening 10/27/2027 10/27/2024, 0 10/12/2024, 08/04/2024 DTaP,Tdap,and Td Vaccines (4 - Td or Tdap) 12/20/2032 12/20/2022, 11/26/2011, 05/16/2000 Hepatitis B Vaccines Completed 11/04/2012, 05/08/2012, 04/10/2012 Pneumococcal Vaccine: 50+ Years Completed 3, 07/16/2017 Procedures * Due to [place] [employer] law, this organization might not be sharing negative HIV tests. Procedure Name Priority Date/Time Associated Diagnosis Comments POCT GLUCOSE Routine 10/27/2024 10:01 AM EST from Last 3 Months or Most Recently Relevant to Health Maintenance Results * Due to [place] [employer] law, this organization might not be sharing negative HIV tests. * (ABNORMAL) POCT Glucose, interfaced (10/27/2024 10:01 AM EST) [facility] Signature Glucose, POCT 105(H) 70 - 99 mg/dL 10/27/2024 10:02 AM EST [facility], POC Comment: The document control supervisor has not determined the efficacy of this test in Critically ill patients. [facility] defines Critically ill patients for the [...] POCT ORDERABLES - DEVICE Final Result [facility], [facility] [address] [place] [address], [place] from Last 3 Months or Most Recently Relevant to Health Maintenance Insurance [employer] Advance Directives * Presumed Full Code (Latest Code Status on File) Date Activated Date Inactivated Comments 10/27/2024 10:29 AM 10/27/2024 9:21 PM * Presumed Full Code Date Activated Date Inactivated Comments 08/04/2024 8:56 AM 08/04/2024 3:36 PM Care Teams Properties Supervisor Relationship Specialty Start Date End Date Caridad Louis MD [address] [place] [address] PCP - General Internal Medicine 05/05/24
--- OUTSIDE RECORDS SUMMARY | 2025-08-11 06:12 | XMS_ITS | Data Portability ---
Author Organization [facility] Conrado Osullivan AONE [place] Address [address] [place] [address] Assessment Encounter Date Assessment Date Assessment LastModified [...] scheduled for 3:00 this afternoon at [facility]. Patient is in not in [...] suspension for injection 2022 023 [email or web address] [facility], [phone] [place], [address], 3 13:18:54 lidocaine (PF) 10 mg/mL (1 %) injection solution 2022 023 [email or web address] [facility], [phone] [place], [address], 3 13:18:54 Patient TargetsNo targets recorded. Patient [...] lateral collateral ligament of right knee joint 2989302068647 9104 Active 2022 EMELINA SANTOS PA-C [address] [facility], [place], [address], [place] [facility] [place], P 3 19:51:21 Pain of right calf 7219672617966 103 Active 2022 EMELINA SANTOS PA-C [address],[place] [facility], [place], [address], [place] [facility] [place], P 3 13:11:32 Problem Notes None recorded. Procedures Surgical History Date Name Laterality Status Provider Name and Address Organization Details Recorded Time 01/02/2023 Knee Joint/Burs a Asp & Inj completed EMELINA SANTOS PA-C [address] [facility], [place], [address], [place] [facility] [place], P 01/02/2023 13:19:35 12/19/2022 Knee Joint/Burs a Asp & Inj completed EMELINA SANTOS PA-C [address], [place], [address], [place] [facility] [place], P 12/19/2022 19:56:53 Imaging Results None recorded. Procedure Notes None recorded. Medical Equipment None Reported. Allergies Allergen ID Allergen Name Allergen Category Reaction Reaction Severity Criticality Documentation Date Start Date Code Code System Note Provider Name and Address Organization Details Recorded Time 230646 nitrofura ntoin medicatio n Not available Not available Not available 05/25/20252018 7454 RxNorm React ion: Anaph ylaxi s, sever ity: Unkno wn;Re actio n: Itchi ng, sever ity: Unkno wn;Re actio n: Other (See Comme nts), sever ity: Unkno wn;Di fficu lty breat noe Not Available [facility] 5 01:32:16 2631 Non-stero idal anti-infl ammatory agent (substanc e) medicatio n Not available Not available Not available 12/19/2022 97933 5008 SNOMED Nancy Anne null, [facility] [place], P 3 14:47:20 2632 Macrobid medicatio n Not available Not available Not available 12/19/2022 72857 1 RxNorm Nancy Anne null, [place] [facility] [place], P 3 14:47:26 Medications Name Sig Start [...] Updated DateTime 12/19/2022 157.48 cm 57.8 kg/m2 308780.[address] [place] [facility] [place], P 12/19/2022 14:48:12 Social History None recorded. Functional Status Question Answer Note LastModified by Organizat ion Details LastModified Time Do you use any illicit or recreational drugs? No [email or web address] Information not available 12/19/2022 Do you or have you ever used any other forms of tobacco or nicotine? No [email or web address] Information not available 12/19/2022 What is your level of alcohol consumption? None [email or web address] Information not available 12/19/2022 Mental Status None recorded. Family History Relationship Description Onset Age of this Age Resolved Age Notes LastModified by Organization Details LastModified Time Mother Family history of malignant neoplasm [email or web address] Not available 2022 14:48:51 Medical History Condition Response Anemia Y Hypertension Y Asthma Y Gynecological HistoryNo gynecological history recorded. Obstetrics History GPAL:G 0 P 0 0 0 0 Past Encounters Encounter ID Performer Location Encounter Start Date Encounter Closed Date Diagnosis/Indication Diagnosis SNOMED-CT Code Diagnosis ICD10 Code Diagnosis IMO Codes Diagnosis Note [id number] SHANNAN SANDHU [facility] [address] [facility] [address] [place] [address] 12/19/2022 14:32:55 12/19/2022 15:14:51 Sprain of lateral collateral ligament of right knee joint [id number] 8146300 S83.91XA [id number] SHANNAN SANDHU [facility] [address] [facility] [address] [place] [address] 01/02/2023 12:52:58 01/02/2023 13:20:33 Pain of right calf 3392282227 273172 M79.661 Pain of ri ght knee joint 9743428611 71288 M25.561 Health Concerns Section Related Observation LastModified by Organization Detai ls LastModified Time None Recorded Concern Status LastModified by Organization Details LastModified Time None Recorded Advance Directives Directive None Recorded Payers Insurance Date Sequence Insurance Name Policy Number Policy Canales Covered Member ID Canales Member ID Guarantor Name 01/27/2023 1 ARA (POS) [id number] Digna Foss [id number] Digna Foss Notes Date Note Type [...] which prompted her to go to [facility]'s ER. Patient states she was [...] I personally reviewed these x-rays in the [facility] PACS system and agree with the below noted findings. [facility] [address] [place] [address] Pat ient: DIGNA FOSS/Age/Sex: 1975 - FUnit#: [id number] Location/Status: SPER/PRE ERAccount#: [id number] Mnemonic[facility]DOC CR Knee RT 4 [...] findings. Moderately severe osteoarthritis, mildlyprogressive since 04/20/2014.Code 95212Kybmfzgro Physician: TAPAN LOVETT MDElectronically Signed by: TAPAN LOVETT [facility] Date/Time: 12/17/22804Sign date/Time: 12/17/22 08 EMELINA SANTOS PA-C [address] [place] [address], [address], [place] [facility] [place], P 12/19/2022 19:58:33 3 text/html Assessment & [...] family history of DVT. EMELINA SANTOS PA-C [address] [place] [address],[facility] [address], [place], [address], [place] [facility] [place], P 01/02/2023 13:20:34 OBGyn Episode No OBEpisode recorded.
--- OUTSIDE RECORDS SUMMARY | 2025-08-11 06:12 | XMS_ITS | Encounter Summary ---
Author Organization [facility] Address [address] [facility] [address] [place] [address] Phone Care Team Providers Care Rigging Up Worker Name Role Phone Caridad Louis MD Primary Care Provider + Reason for Referral * Consultation (Within 1 month) - Closed Specialty Diagnoses / Procedures Referred By Megha franco Referred To Contact Gastroenterology Diagnoses Abdominal pain, unspecified abdominal location Persistent vomiting Caridad Louis MD Phone: tel: Soto Noble MD, PhD Phone: tel: fax: mailto:[email or web address] Referral ID Status Reason Start Date Expiration Date Visits Re quested Visits Authorized [id number] Closed 12/15/2018 12/16/2019 1 1 Encounter Details Date Type Department Care Team (Latest Contact Info) Description 12/15/2018 Transcribe Orders [facility] [address] [facility], 5th [place] [address] Caridad Louis MD [address] [place] [address] [phone] Abdominal pain, unspecified abdominal location (Primary Dx); [...] Associated Diagnoses Order Schedule Ambulatory referral to [facility] Gastroenterology (Consult Requests Only) Outpatient Referral Routine Abdominal pain, unspecified abdominal location Persistent vomiting Ordered: 12/15/2018 documented as of this encounter Visit Diagnoses Diagnosis Abdominal pain, unspecified abdominal location- Primary Persistent vomiting documented in this encounter Care Teams Rigging Up Worker Relationship Specialty Start Date End Date Caridad Louis MD PCP - General Internal Medicine 05/01/18 documented as of this encounter Additional Source Comments The information contained in this document represents components of the legal health record. It is not the complete legal health record.[facility]
[2025-08-11 06:32] LABS: MANUAL DIFF FLAG NO
[2025-08-11 07:15] LABS: Hematocrit 40.6 % (37.0-47.0); Hemoglobin 12.7 g/dl (12.0-16.0); Imm Gran Abs Auto 0.03 X10*3/uL (0.00-0.03); Imm Gran Pct Auto 0.4 % (0.0-0.4); Lymphocytes Absolute Auto 1.8 X10*3/uL (1.2-4.9); Mean Corpuscular HGB Conc 31.3 g/dl (31.0-35.0); Mean Corpuscular Hemoglobin 26.1 pg (27.0-33.0); Mean Corpuscular Volume 83.5 fL (80.0-98.0); NRBC Abs Auto 0.000 X10*3/uL (0.0-0.012); NRBC Pct Auto 0.0 /100WBC (0.0-0.2); Platelet Count 210 X10*3/uL (160-400); Red Blood Count 4.86 X10*6/uL (4.20-5.50); White Blood Count 6.8 X10*3/uL (4.8-10.8)
[2025-08-11 07:49] LABS: Alanine Aminotransferase 35 U/L (0-31); Albumin Level 4.2 g/dL (3.5-5.0); Alkaline Phosphatase 130 U/L (39-117); Anion Gap 12 (12-20); Aspartate Amino Transferase 30 U/L (5-31); Blood Urea Nitrogen 21 mg/dL (9-16); Calcium 8.5 mg/dL (8.4-10.2); Carbon Dioxide 23 mmol/L (22-29); Chloride 110 mmol/L (96-108); Estimated Glomerular Filt Rate > 60; Iron 59 mcg/dL (30-160); Percent Iron Saturation 17 % (15-50); Potassium 4.1 mmol/L (3.3-5.1); Sodium 141 mmol/L (135-145); Total Iron Binding Capacity 340 mcg/dL (228-428); Total Protein 7.2 g/dL (6.5-8.0); Unsaturated Iron Binding 281 ug/dL
[2025-08-11 08:10] LABS: Vitamin B12 289 pg/mL (200-900)
== END 2025-08-11 06:09 | disposition home or self-care (01) ==
LOC: HO.LAB 06:08
PROVIDERS: PCP Internal Medicine; Visit Provider Internal Medicine
DX: R11.0 Nausea (principal); R73.09 Other abnormal glucose; R53.83 Other fatigue; E66.9 Obesity, unspecified; D64.9 Anemia, unspecified
CPT/HCPCS: 36415; 80053; 82533; 82607; 83036; 83540; 84443; 85025

== ENCOUNTER 2025-08-23 08:07 | Outpatient (AMB) | payer OTHER, SELFPAY ==
--- OUTSIDE RECORDS SUMMARY | 2025-08-23 08:13 | XMS_ITS | Encounter Summary ---
Author Organization [facility] Address [address] [place] [address] Care Team Providers Care Picker/Puller Name Role Phone Caridad Louis MD Primary Care Provider [phone] Encounter Details Date Type Department Care Team (Late st Contact Info) Description 09/03/2024 [employer] Message [facility] Financial Counseling Department [address] [place] [address] Mychart, Generic Provider [address] [place], [place] [id number] Financial Assistance Social History Tobacco Use Types [...] on filedocumented in this encounter Care Teams Picker/Puller Relationship Specialty Start Date End Date Caridad Louis MD [address] [place] [address] PCP - General Internal Medicine 05/05/24 documented as of this encounter
--- OUTSIDE RECORDS SUMMARY | 2025-08-23 08:14 | XMS_ITS | Data Portability ---
Author Organization [place] [facility] Address [address] [place] [address] Care Team Providers Care Blade Sharpener Name Role Phone JOÃO PLUNKETT Primary Care [...] ionized calcium, serum or plasma 019 [email or web address] [facility], [address] [place] [address], [address], 9 14:46:59 Referral None recorded. Procedures None recorded. Surgeries None recorded. Imaging None recorded. Medication Orders None recorded. Patient TargetsNo targets recorded. Patient Instructions Encounter Date Encounter Id Patient Instructions Last Modified By Organization Details Last Modified Time 06/11/2019 [id number] [employer] came to your home for evaluation of [...] with your PCP. You are seeing the lozenge maker tomorrow for further evaluation of your blood pressure concerns. We did not give you any prescriptions. Thank you for your visit with [facility] today. We cannot always find the exact [...] in your condition between 8am-10pm, please call [facility] at [phone] to help navigate your care. Not available 06/11/2019 14:46:59 Reason for Referral None Reported. Results Created Date Observation Date Name Description Value Unit Range Abnormal Flag Note LastModifiedBy Organization Detail LastModifiedTime 06/11/2006/11/2019 BMP + ioniz ed calci um, serum or plasm a Na 142 mmol/ L 138-14 6 Not Available Spr - [address] [place], [address], 06/11/2019 14:41:52 06/11/2006/11/2019 BMP + ioniz ed calci um, serum or plasm a K 3.9 mmol/ L 3.5-4. 9 Not Available [facility] - [facility] [address] [place], [address], 06/11/2019 14:41:52 06/11/2006/11/2019 BMP + ioniz ed calci um, serum or plasm a cL 108 mmol/ L 98-109 Not Available [facility] - Home [address] [place], [address], 06/11/2019 14:41:52 06/11/2006/11/2019 BMP + ioniz ed calci um, serum or plasm a ica 1.18 mmol/ L 1.12-1 .32 Not Available [facility] - Home [address] [place], [address], 06/11/2019 14:41:52 06/11/2006/11/2019 BMP + ioniz ed calci um, serum or plasm a TCO2 22 mmol/ L 24-29 Not Available [facility] - Home [address] [place], [address], 06/11/2019 14:41:52 06/11/2006/11/2019 BMP + ioniz ed calci um, serum or plasm a glu 160 mg/dL 70-105 Not Available [facility] - Home [address] [place], [address], 06/11/2019 14:41:52 06/11/2006/11/2019 BMP + ioniz ed calci um, serum or plasm a BUN 20 mg/dL 8-26 Not Available [facility] - Home [address] [place], [address], 06/11/2019 14:41:52 06/11/2006/11/2019 BMP + ioniz ed calci um, serum or plasm a crea 0.5 mg/dL .6-1.3 Not Available [facility] - Home [address] [place], [address], 06/11/2019 14:41:52 06/11/2006/11/2019 BMP + ioniz ed calci um, serum or plasm a HCT 37 %_pcv 38-51 Not Available Spr - Home [address] [place], [address], 06/11/2019 14:41:52 06/11/2006/11/2019 BMP + ioniz ed calci um, serum or plasm a Hb 12.6 g/dL 12-17 Not Available Spr - Home [address], [place], [address], 06/11/2019 14:41:52 06/11/20 19 06/11/2019 BMP + ioniz ed calci um, serum or plasm a angap 17 mmol/ L 10- Not Available Spr - Home [address], [place], [address], 06/11/2019 14:41:52 Result Notes None recorded. Procedures Surgical History Date Name Laterality Status Provider Name and Address Organization Details Recorded Time 06/11/20 Venipuncture - completed MOISES HINTON NP [address] [place], [address], [place] [facility] 06/11/2019 14:41:40 Imaging Results None recorded. Procedure Notes None recorded. Medical Equipment None Reported. Allergies Allergen ID Allergen Name Allergen Category Reaction Reaction Severity Criticality Documentation Date Start Date Code Code System Note Provider Name and Address Organization Details Recorded Time 76956 Macrobid medicatio n other Not available Not available 06/11/2019 85546 1 RxNorm MOISES HINTON NP [address] [place], [address], [place] [facility] 14:28:29 Medications Name Sig Start Date [...] Status Never Smoker MOISES HINTON NP [address] [place], [address], [place] [facility] 06/11/2019 14:31:22 What Was The Date Of [...] ICD10 Code Diagnosis IMO Codes Diagnosis Note [id number] MOISES HINTON NP [facility] [address] [place] [address] 06/11/2019 14:25:37 06/11/2019 18:00:59 Dizziness 141928173 R42 Health Concerns Section Related Observation LastModified by Organization Detai ls LastModified Time None Recorded Concern Status LastModified by Organization Details LastModified Time None Recorded Advance Directives Directive None Recorded Payers Insurance Date Sequence Insurance Name Policy Number Policy Canales Covered Member ID Canales Member ID Guarantor Name 06/11/2019 1 [facility] Lisa Stellato [id number] Lisa Stellato 06/11/2019 1 *SELF PAY* Lisa Stellato [id number] Lisa Stellato 06/11/2019 1 [facility] Lisa Stellato [id number] Lisa Stellato Notes Date Note Type [...] past 4 years. MOISES HINTON, MEGHANA [address], [place], [address], [place] [facility] 06/11/2019 16:13:47 OBGyn Episode No OBEpisode recorded.
--- OUTSIDE RECORDS SUMMARY | 2025-08-23 08:14 | XMS_ITS | Clinical Summary ---
Author Organization [facility] Address [address] [place] [address] Care Team Providers Care Kitchen Steward/Stewardess Name Role Phone Caridad Louis MD Primary Care Provider [phone] Allergies Active Allergy Reactions Criticality Noted Date [...] Vaccine, 23 Valent 07/16/2017 Pneumococcal conjugate PCV20,polysaccharide ZYX598 conjugate, adjuvant, PF (Prevnar 20) 12/20/2022 Tetanus [...] Completed 3, 07/16/2017 Procedures * Due to [place] Angella Joy law, this organization might not be sharing negative HIV tests. Procedure Name Priority Date/Time Associated Diagnosis Comments POCT GLUCOSE Routine 10/27/2024 10:01 AM EST from Last 3 Months or Most Recently Relevant to Health Maintenance Results * Due to [place] Angella Joy law, this organization might not be sharing negative HIV tests. * (ABNORMAL) POCT Glucose, interfaced (10/27/2024 10:01 AM EST) [facility] Signature Glucose, POCT 105(H) 70 - 99 mg/dL 10/27/2024 10:02 AM EST [facility], POC Comment: The before school babysitter has not determined the efficacy of this test in Critically ill patients. [facility] defines Critically ill patients for the [...] POCT ORDERABLES - DEVICE Final Result [facility] [address] [place] [address], [place] from Last 3 Months or Most Recently Relevant to Health Maintenance Insurance [employer] Advance Directives * Presumed Full Code (Latest Code Status on File) Date Activated Date Inactivated Comments 10/27/2024 10:29 AM 10/27/2024 9:21 PM * Presumed Full Code Date Activated Date Inactivated Comments 08/04/2024 8:56 AM 08/04/2024 3:36 PM Care Teams Kitchen Steward/Stewardess Relationship Specialty Start Date End Date Caridad Louis MD [address] [place] [address] PCP - General Internal Medicine 05/05/24
--- OUTSIDE RECORDS SUMMARY | 2025-08-23 08:14 | XMS_ITS | Data Portability ---
Author Organization [facility] Conrado Osullivan AONE [place] Address [address] [place] [address] Assessment Encounter Date Assessment Date Assessment LastModified [...] Appointment scheduled for 3:00 this afternoon at [facility]. Patient is in not in any [...] for injection 2022 023 [email or web address] [facility], [phone] [place], [address], 3 13:18:54 lidocaine (PF) 10 mg/mL (1 %) injection solution 2022 023 [email or web address] [facility], [phone] [place], [address], 3 13:18:54 Patient TargetsNo targets recorded. Patient [...] lateral collateral ligament of right knee joint 2949550481723 9104 Active 2022 EMELINA SANTOS PA-C [address] [facility], [place], [address], [facility] [place], P 3 19:51:21 Pain of right calf 6336649408327 103 Active 2022 EMELINA SANTOS PA-C [address] [facility], [place], [address], [place] [facility] [place], P 3 13:11:32 Problem Notes None recorded. Procedures Surgical History Date Name Laterality Status Provider Name and Address Organization Details Recorded Time 01/02/2023 Knee Joint/Burs a Asp & Inj completed EMELINA SANTOS PA-C [address] [facility], [place], [address], [place] [facility] [place], P 01/02/2023 13:19:35 12/19/2022 Knee Joint/Burs a Asp & Inj completed EMELINA SANTOS PA-C [address], [place], [address], [place] [facility] [place], P 12/19/2022 19:56:53 Imaging Results None recorded. Procedure Notes None recorded. Medical Equipment None Reported. Allergies Allergen ID Allergen Name Allergen Category Reaction Reaction Severity Criticality Documentation Date Start Date Code Code System Note Provider Name and Address Organization Details Recorded Time 059602 nitrofura ntoin medicatio n Not available Not available Not available 05/25/20252018 7454 RxNorm React ion: Anaph ylaxi s, sever ity: Unkno wn;Re actio n: Itchi ng, sever ity: Unkno wn;Re actio n: Other (See Comme nts), sever ity: Unkno wn;Di fficu lty breat noe Not Available [facility] 5 01:32:16 2631 Non-stero idal anti-infl ammatory agent (substanc e) medicatio n Not available Not available Not available 12/19/2022 88591 5008 SNOMED Nancy Anne null, [place] [facility] [place], P 3 14:47:20 2632 Macrobid medicatio n Not available Not available Not available 12/19/2022 77826 1 RxNorm Nancy Anne null, [place] [facility] [place], P 3 14:47:26 Medications Name Sig Start [...] Updated DateTime 12/19/2022 157.48 cm 57.8 kg/m2 864536.[address] [place] [facility] [place], P 12/19/2022 14:48:12 Social History None recorded. Functional Status Question Answer Note LastModified by Organizat ion Details LastModified Time Do you use any illicit or recreational drugs? No [email or web address] Information not available 12/19/2022 Do you or have you ever used any other forms of tobacco or nicotine? No [email or web address] Information not available 12/19/2022 What is your level of alcohol consumption? None [email or web address] Information not available 12/19/2022 Mental Status None recorded. Family History Relationship Description Onset Age of this Age Resolved Age Notes LastModified by Organization Details LastModified Time Mother Family history of malignant neoplasm [email or web address] Not available 2022 14:48:51 Medical History Condition Response Anemia Y Hypertension Y Asthma Y Gynecological HistoryNo gynecological history recorded. Obstetrics History GPAL:G 0 P 0 0 0 0 Past Encounters Encounter ID Performer Location Encounter Start Date Encounter Closed Date Diagnosis/Indication Diagnosis SNOMED-CT Code Diagnosis ICD10 Code Diagnosis IMO Codes Diagnosis Note [id number] SHANNAN SANDHU [facility] [address] [facility] [address] [place] [address] 12/19/2022 14:32:55 12/19/2022 15:14:51 Sprain of lateral collateral ligament of right knee joint 9801157031 9225809 S83.91XA [id number] SHANNAN SANDHU [facility] [address] [facility] [address] [place] [address] 01/02/2023 12:52:58 01/02/2023 13:20:33 Pain of right calf 5944238407 470363 M79.661 Pain of ri ght knee joint 5301863667 17121 M25.561 Health Concerns Section Related Observation LastModified by Organization Detai ls LastModified Time None Recorded Concern Status LastModified by Organization Details LastModified Time None Recorded Advance Directives Directive None Recorded Payers Insurance Date Sequence Insurance Name Policy Number Policy Canales Covered Member ID Canales Member ID Guarantor Name 01/27/2023 1 ARA (POS) [id number] Digna Foss [id number] Digna Foss Notes Date Note Type [...] pain which prompted her to go to [facility]'s ER. Patient states she was told [...] x-rays in the [facility] PACS system and agree with the below noted findings. [facility] [address] [place] [address] Pat ient: DIGNA FOSS/Age/Sex: 1975 - FUnit#: [id number] Location/Status: SPER/PRE ERAccount#: [id number] Mnemonic[facility],DOC CR Knee RT 4 or [...] findings. Moderately severe osteoarthritis, mildlyprogressive since 04/20/2014.Code 57084Yoboxnpbb Physician: TAPAN LOVETT MDElectronically Signed by: TAPAN LOVETT [facility] Date/Time: 12/17/22804Sign date/Time: 12/17/22 08 EMELINA SANTOS PA-C [address] [place] [address], [address], [place] [facility] [place], P 12/19/2022 19:58:33 3 text/html Assessment & [...] history of DVT. EMELINA SANTOS PA-C [address] [place] [address],[facility] [address], [place], [address], [place] [facility] [place], P 01/02/2023 13:20:34 OBGyn Episode No OBEpisode recorded.
--- OUTSIDE RECORDS SUMMARY | 2025-08-23 08:14 | XMS_ITS | Encounter Summary ---
Author Organization [facility] Address [address] [facility] [address] [place] [address] Phone Care Team Providers Care Instructional Materials Director Name Role Phone Caridad Louis MD Primary Care Provider + Reason for Referral * Consultation (Within 1 month) - Closed Specialty Diagnoses / Procedures Referred By Megha franco Referred To Contact Gastroenterology Diagnoses Abdominal pain, unspecified abdominal location Persistent vomiting Caridad Louis MD Phone: tel: Soto Noble MD, PhD Phone: tel: fax: mailto:[email or web address] Referral ID Status Reason Start Date Expiration Date Visits Re quested Visits Authorized [id number] Closed 12/15/2018 12/16/2019 1 1 Encounter Details Date Type Department Care Team (Latest Contact Info) Description 12/15/2018 Transcribe Orders [facility] [address] [facility], 5th [place] [address] Caridad Louis MD [address] [place] [address] [id number] Abdominal pain, unspecified abdominal location (Primary Dx); [...] Associated Diagnoses Order Schedule Ambulatory referral to [facility] (Consult Requests Only) Outpatient Referral Routine Abdominal pain, unspecified abdominal location Persistent vomiting Ordered: 12/15/2018 documented as of this encounter Visit Diagnoses Diagnosis Abdominal pain, unspecified abdominal location- Primary Persistent vomiting documented in this encounter Care Teams Instructional Materials Director Relationship Specialty Start Date End Date Caridad Louis MD PCP - General Internal Medicine 05/01/18 documented as of this encounter Additional Source Comments The information contained in this document represents components of the legal health record. It is not the complete legal health record.[facility]
--- OUTSIDE RECORDS SUMMARY | 2025-08-23 08:14 | XMS_ITS | Patient Health Record ---
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) Active confirmed Problem Body mass index 40+ - morbidly obese (547028980) Body mass index [BMI] 50.0-59.9, adult (Z68.43) Active confirmed Plan Of Treatment No Information Insurance Providers Payer Name Payer Address Payer Phone Subscriber Number Group Number Insured Name Patient Relationship to Insured Coverage Start Date Coverage End Date [employer] [address] [address] [place] [address] [phone] [id number] Lisa Foss Self - patient is the [...] following gastric bypass COVID vaccinated X 2 ([employer]) and [address] ([employer]) Surgical History Surgery Date(Month/Year) colonoscopy 08/24/2020, 11/27/2016, [...]
--- OUTSIDE RECORDS SUMMARY | 2025-08-23 08:14 | XMS_ITS | Clinical Summary ---
Author Organization [facility] Prior to 01/30/[address] [place] [address] Care Team Providers Care Solar Sales Rep Name Role Phone Caridad Louis MD Primary Care Provider +1- [phone] Allergies Active Allergy Reactions Criticality Noted Date [...] age to complete this topic Care Teams Solar Sales Rep Relationship Specialty Start Date End Date Caridad Louis MD [address] [place] [address] PCP - General Internal Medicine 12/21/21
--- OUTSIDE RECORDS SUMMARY | 2025-08-23 08:14 | XMS_ITS | Encounter Summary ---
Author Organization [facility] Address [address] [facility] [address] [place] [address] Phone Care Team Providers Care Electrical Sign Wirer Name Role Phone Caridad Louis MD Primary Care Provider + Reason for Referral * Consultation (Elective) - Closed Specialty Diagnoses / Procedures Referred By Megha franco Referred To Contact Neurology Diagnoses Encounter for consultation System, Provider Not In, PhD [id number] [place] [phone] Phone: tel: Referral ID Status Reason Start Date Expiration Date Visits Re quested Visits Authorized [id number] Closed 10/29/2018 10/29/2019 1 1 Encounter Details Date Type Department Care Team (Late st Contact Info) Description 10/29/2018 Transcribe Orders [facility] [address] [place] [address], 8th Floor, [address] [place] [address] Caridad Louis MD [address] [place] [address] Encounter for consultation (Primary Dx) Social History [...] Diagnoses Orde r Schedule Ambulatory referral to [facility] Neurology Outpatient Referral Routine Encounter for consultation Ordered: 10/29/2018 documented as of this encounter Visit Diagnoses Diagnosis Encounter for consultation- Primary documented in this encounter Care Teams Electrical Sign Wirer Relationship Specialty Start Date End Date Caridad Louis MD PCP - General Internal Medicine 05/01/18 documented as of this encounter Additional Source Comments The information contained in this document represents components of the legal health record. It is not the complete legal health record.[facility]
--- OUTSIDE RECORDS SUMMARY | 2025-08-23 08:14 | XMS_ITS | Encounter Summary ---
Author Organization [facility] Address [address] [place] [address] Phone Care Team Providers Care Briar Cutter Name Role Phone Caridad Louis MD Primary Care Provider + Encounter Details Date Type Department Care Team (Late st Contact Info) Description 03/10/2019 Procedure Pass [facility] ENDO DEPT [address] [facility], 4th [place] [address] Social History Tobacco Use Types Packs/Day Years [...] on filedocumented in this encounter Care Teams Briar Cutter Relationship Specialty Start Date End Date Caridad Louis MD PCP - General Internal Medicine 05/01/18 documented as of this encounter Additional Source Comments The information contained in this document represents components of the legal health record. It is not the complete legal health record.[facility]
--- OUTSIDE RECORDS SUMMARY | 2025-08-23 08:14 | XMS_ITS | Clinical Summary ---
Author Organization [facility] Address [address] [facility] [address] [place] [address] Phone Care Team Providers Care Data Entry Technician Name Role Phone Caridad Louis MD [...] huff Payer ID:Not on file Type:PPO Address: [place] [phone] GENERIC COMMERCIAL GENERIC COMMERCIAL GENERIC COMMERCIAL GENERIC COMMERCIAL GENERIC COMMERCIAL GENERIC COMMERCIAL GENERIC COMMERCIAL GENERIC COMMERCIAL Care Teams Data Entry Technician Relationship Specialty Start Date End Date Caridad Louis MD PCP - General Internal Medicine 05/01/18 Additional Source Comments The information contained in this document represents components of the legal health record. It is not the complete legal health record.[facility]
--- OUTSIDE RECORDS SUMMARY | 2025-08-23 08:15 | XMS_ITS | Clinical Summary ---
Author Organization [facility] Address [address] [place] [address] Phone Care Team Providers Care Pearl Digger Name Role Phone Caridad Louis MD Primary Care Provider +1- [phone] Allergies Active Allergy Reactions Criticality Noted Date [...] - 07/04/2025 11:29 AM EST Hospital Encounter [facility] [address] [place] [id number] Jennifer Mendes MD Bukalo, Nermina, MD Alam, Aroosa, MD Mild intermittent asthma with exacerbation (Primary Dx); Shortness of breath; Bilateral lower extremity edema Discharge Disposition: Home or Self Care from Last 3 Months Surgical History Surgery Date Site/Laterality Comments COLONOSCOPY PROCEDURE: HISTORICAL COLONOSCOPY; COMMENT: 08/24/20, 11/27/16, 04/2013, 2007 ESOPHAGOGASTRODUODENOSCOPY 10/24/2018 PROCEDURE: PA ESOPHAGOGASTRODUODENOSCOPY TRANSORAL DIAGNOSTIC OTHER SURGICAL HISTORY 03/10/2018 PROCEDURE: PA RPR PARAESOPH HIATAL HERNIA W/LAPT W/O MESH OTHER SURGICAL HISTORY 05/23/2017 PROCEDURE: PA ENDOSCOPY UPPER SMALL INTESTINE BLADDER SURGERY 2016 PROCEDURE: HISTORICAL BLADDER SURGERY; COMMENT: Implantation of electronic stimulator ESOPHAGOGASTRODUODENOSCOPY 02/20/2016 PROCEDURE: PA ESOPHAGOGASTRODUODENOSCOPY TRANSORAL DIAGNOSTIC OTHER SURGICAL HISTORY 11/27/2016 PROCEDURE: PA ENDOSCOPY UPPER SMALL INTESTINE OTHER SURGICAL HISTORY 05/01/2012 PROCEDURE: PA EGD FLEXIBLE TRANSNASAL W/BIOPSY SINGLE/MULTIPLE CHOLECYSTECTOMY 06/02/2010 PROCEDURE: PA LAPAROSCOPY SURG CHOLECYSTECTOMY OTHER SURGICAL HISTORY 2000 PROCEDURE: PA LAPS GSTR RSTCV PX W/BYP ANDREW-EN-Y LIMB <150 CM EYE SURGERY 1979 Right PROCEDURE: HISTORICAL EYE SURGERY; COMMENT: Right eye strabismus surgery for amblyopia GASTRIC BYPASS PROCEDURE: PA GASTRIC RSTCV W/BYP W/SM INT RCNSTJ LIMIT [...] swelling LUQ pain DX:LUQ pain Mood disorder ([facility] V24) DX:M ood disorder ([facility]) Nausea DX:Nausea Neuropathy DX:Neuropathy Obstructive sleep apnea DX:Obstr uctive sleep apnea Otitis media of left ear DX:Otit is media of left ear Pneumonia DX:Pneumonia Recurrent UTI DX:Recurrent UTI Seasonal allergic rhinitis DX:Se asonal allergic rhinitis Severe obesity ([facility] V24, [facility] V28) DX:Severe obesity ([facility]) Thrombocytopenia ([facility] V24) D X:Thrombocytopenia ([facility]) Vaginal discharge DX:Vaginal dis charge Weight gain following gastri c bypass surgery DX:Weight gain following gas tric bypass surgery Chest pain DX:Chest pain Non-cardiac chest pain DX:Non-ca rdiac chest pain Rectovaginal fistula DX:Rectovag inal fistula Low back pain DX:Low back pain Morbid obesity with BMI of 5 0.0-59.9, adult ([facility] V24, [facility] V28) DX:Morbid obesity wit h BMI of 50.0-59.9, adult ([facility]) Family History Medical History Relation [...] Description 09/08/2025 2:30 PM EST Ancillary Procedure [facility] [address] [place] [address] Health Maintenance Due Date Last Done Comments Breast Cancer Screening 1974 Colorectal Cancer Screening: Colonoscopy 1974 Drug Screen 1974 Non-Opioid Controlled Substance Agreement 1974 Cervical Cancer Screening: Pap Smear 12/02/1995 [...] Hold for add-ons. 07/04/2025 8:01 AM EST [facility] Comment:Auto resulted. Blood Venous blood specimen / Unknown Venipuncture / Unknown 07/04/2025 5:42 AM EST 07/04/2025 6:49 AM EST us Marimar Moncada MD LAB BLOOD ORDERABLES Final Resul t [facility] [address] [place] [address], [place] [phone] * (ABNORMAL) Basic metabolic panel (07/04/2025 5:42 AM EST) Sodium 140 133 - 145 mmol/L LAB CHEMISTRY METHOD 07/04/2025 7:33 AM [facility] Potassium 4.4 3.5 - 5.5 mmol/L LAB CHEMISTRY METHOD 07/04/2025 7:33 AM [facility] Chloride 106 96 - 110 mmol/L LAB CHEMISTRY METHOD 07/04/2025 7:33 AM [facility] CO2 28 21 - 32 mmol/L LAB CHEMISTRY METHOD 07/04/2025 7:33 AM [facility] Anion Gap 6 3 - 11 LAB CHEMISTRY METHOD 07/04/2025 7:33 AM [facility] Glucose 106(H) 70 - 100 mg/dL LAB CHEMISTRY METHOD 07/04/2025 7:33 AM [facility] BUN 14 5 - 25 mg/dL LAB CHEMISTRY METHOD 07/04/2025 7:33 AM [facility] Creatinine 0.76 0.50 - 1.10 mg/dL LAB CHEMISTRY METHOD 07/04/2025 7:33 AM [facility] eGFR 96 >=60 mL/min/1. 73m2 LAB CHEMISTRY METHOD 07/04/2025 7:33 AM [facility] Comment:Calculation based on the Chronic Kidney Disease Epidemiology Collaboration (CKD-EPI) equation refit without adjustment for race. BUN/Creatinine Ratio 18.4 LAB CHEMISTRY METHOD 07/04/2025 7:33 AM [facility] Calcium 8.9 8.5 - 10.5 mg/dL LAB CHEMISTRY METHOD 07/04/2025 7:33 AM EST [facility] Blood Venous blood specimen / Unknown Venipuncture / Unknown 07/04/2025 5:42 AM EST 07/04/2025 6:47 AM EST Cynthia ANSARI LAB BLOOD ORDERABLES Final Result [facility] [address] [place] [address], [place] [phone] * (ABNORMAL) Urinalysis with reflex microscopic and culture (07/03/2025 4:40 PM EDT) Specific [place] Urine 1.018 1.003 - 1.030 LAB URINALYSIS - AUTOMATED METHOD 07/03/2025 5:15 PM EDT [facility] pH, Urine 6.0 5.0 - 8.0 pH LAB URINALYSIS - AUTOMATED METHOD 07/03/2025 5:15 PM [facility] Leukocytes, Urine Small(A) Negative LAB URINALYSIS - AUTOMATED METHOD 07/03/2025 5:[address] [facility] Nitrite, Urine Negative Negative LAB URINALYSIS - AUTOMATED METHOD 07/03/2025 5:15 PM [facility] Protein, Urine Negative <=Trace mg/dL LAB URINALYSIS - AUTOMATED METHOD 07/03/2025 5:15 PM [facility] Glucose, Urine Negative Negative mg/dL LAB URINALYSIS - AUTOMATED METHOD 07/03/2025 5:15 PM [facility] Ketones, Urine Negative Negative mg/dL LAB URINALYSIS - AUTOMATED METHOD 07/03/2025 5:15 PM [facility] Urobilinogen, Urine 0.2 0.2 - 1.0 mg/dL LAB URINALYSIS - AUTOMATED METHOD 07/03/2025 5:15 PM EDT [facility] Bilirubin, Urine Negative Negative LAB [...] - AUTOMATED METHOD 07/03/2025 5:15 PM T [facility] Bacteria, Urine Few(A) Negative /HPF LAB URINALYSIS - AUTOMATED METHOD 07/03/2025 5:[address] [facility] Hyaline Casts, Urine 0.8 0 - 3 /LPF LAB URINALYSIS - AUTOMATED METHOD 07/03/2025 5:15 PM T [facility] Urine Urine specimen obtained by clean catch procedure / Unknown Non-blood Collection / Unknown 07/03/2025 4:40 PM EDT 07/03/2025 5:05 PM EDT us Anisa ANSARI LAB URINE ORDERABLES Final R esult [facility] [address] [place] [address], * Goldberg urine culture tube (07/03/2025 4:40 PM EDT) Extra Tube Hold for add-ons. 07/03/2025 7:01 PM EDT [facility] Comment:Auto resulted. Urine Urine specimen obtained by clean catch procedure / Unknown Non-blood Collection / Unknown 07/03/2025 4:40 PM EDT 07/03/2025 5:05 PM EDT Anisa ANSARI LAB URINE ORDERABLES Final R esult [facility] [address] [place] [address], * (ABNORMAL) Culture urine (07/03/2025 4:40 PM [...] O RDERABLES Final Result Performing Organization Address City/[facility]/ZIP Co de Phone Number [facility] [address] [place] [address], [place] [phone] * ECG 12 lead (07/03/2025 3:48 PM EDT) Only the most recent of2 resultswithin the time period is included. Ventricular Rate ECG 91 BPM [facility] Atrial Rate 91 BPM [facility] P-R Interval 178 ms [facility] QRS Duration 92 ms [facility] Q-T Interval 362 ms G[facility] QTc 445 ms GEM[facility] P Wave Townsend 42 degrees GEMUSE R Townsend -20 degrees GEMUSE T Townsend 9 degrees GEMUSE ECG Interpretation Normal sinus rhythm Voltage criteria for left ventricular hypertrophy Abnormal ECG When compared with ECG of 03-JUL-2025 09:21, (unconfirmed) Poor data quality in current ECG precludes serial comparison Confirmed by Tigre SANDERS JOHN ([id number]) on 07/04/2025 4:35:00 PM G[facility] 07/03/2025 3:48 PM EDT 07/04/2025 4:35 PM EST Cynthia ANSARI ECG ORDERABLES Final Resul t Performing Organization Address City/[facility]/ZIP Co de Phone Number G[facility] * Troponin I high sensitivity (07/03/2025 11:12 AM EDT) Only the most recent of3 resultswithin the time period is included. Pathologist [facility] High Sensitivity Troponin I 32 <=54 ng/L [...] LAB BLOOD ORDERABLES Final R esult [facility]) [facility] [address] [place] [address], * CT Angio Chest wo and/or w [...] Signed Date: 07/03/2025 11:16 ET Workstation ID: [id number] Transcribed By: Self Edit Transcribed Date: 07/03/2025 [...] Signed Date: 07/03/2025 11:16 ET Workstation ID: [id number] Transcribed By: Self Edit Transcribed Date: 07/03/2025 [...] Detected LAB MICROBIOLOGY METHOD 07/03/2025 11:44 AM [facility] Bordetella parapertussis Not Detected Not Detected LAB MICROBIOLOGY METHOD 07/03/2025 11:44 AM [facility] Mycoplasma pneumo by PCR Not Detected Not Detected LAB MICROBIOLOGY METHOD 07/03/2025 11:44 AM EDT [facility] Chlamydia pneumoniae Not Detected Not Detected LAB MICROBIOLOGY METHOD 07/03/2025 11:[address] [facility] SARS COV-2 Not Detected Not Detected LAB MICROBIOLOGY METHOD 07/03/2025 11:[address] [facility] Swab Both anterior nares / Unknown Non-blood Collection / Unknown 07/03/2025 10:33 AM EDT 07/03/2025 10:54 AM EDT [facility] - 07/03/2025 11:44 AM EDT Testing was performed using the Cibando Respiratory Pathogen PCR Assay. All results must [...] - GENERAL O RDERABLES Final Result [facility] [address] [place] [address], * XR Chest 2 Views (07/03/2025 10:12 [...] Signed Date: 07/03/2025 10:50 ET Workstation ID: [id number] Transcribed By: Self Edit Transcribed Date: 07/03/2025 [...] Signed Date: 07/03/2025 10:50 ET Workstation ID: [id number] Transcribed By: Self Edit Transcribed Date: 07/03/2025 [...] Signed Date: 07/03/2025 10:11 ET Workstation ID: [id number] Transcribed By: Self Edit Transcribed Date: 07/03/2025 [...] Signed Date: 07/03/2025 10:11 ET Workstation ID: [id number] Transcribed By: Self Edit Transcribed Date: 07/03/2025 10:09 ET Anisa ANSARI CV VASCULAR PROCEDURES Final Result * (ABNORMAL) CBC auto differential (07/03/2025 9:41 AM EDT) [facility] WBC 7.4 4.8 - 10.8 K/mcL LAB HEMETOLOGY METHOD 07/03/2025 9:55 AM [facility] RBC 4.50 3.80 - 4.80 M/mcL LAB HEMETOLOGY METHOD 07/03/2025 9:55 AM [facility] Hemoglobin 11.8 11.5 - 16.0 g/dL LAB HEMETOLOGY METHOD 07/03/2025 9:[address] [facility] Hematocrit 38.6 35.0 - 47.0 % LAB HEMETOLOGY METHOD 07/03/2025 9:[address] [facility] MCV 85.6 79.0 - 98.0 FL LAB HEMETOLOGY METHOD 07/03/2025 9:[address] [facility] MCH 26.2(L) 27.0 - 32.0 pcg LAB HEMETOLOGY METHOD 07/03/2025 9:[address] [facility] MCHC 30.6(L) 32.0 - 37.0 g/dL LAB HEMETOLOGY METHOD 07/03/2025 9:[address] [facility] RDW 14.5 11.0 - 15.0 % LAB HEMETOLOGY METHOD 07/03/2025 9:55 AM EDT [facility] Platelets 201 130 - 400 K/mcL LAB HEMETOLOGY METHOD 07/03/2025 9:[address] [facility] MPV 10.2 7.0 - 11.0 FL LAB HEMETOLOGY METHOD 07/03/2025 9:[address] [facility] NRBC 0.0 <1.0 % LAB HEMETOLOGY METHOD 07/03/2025 9:[address] [facility] NRBC Absolute 0.00 <0.10 K/mcL LAB HEMETOLOGY METHOD 07/03/2025 9:[address] [facility] Neutrophils Relative 62.2 % LAB HEMETOLOGY METHOD 07/03/2025 9:[address] [facility] Lymphocytes Relative 27.9 % LAB HEMETOLOGY METHOD 07/03/2025 9:[address] [facility] Monocytes Relative 6.9 % LAB HEMETOLOGY METHOD 07/03/2025 9:[address] [facility] Eosinophils Relative 2.0 % LAB HEMETOLOGY METHOD 07/03/2025 9:[address] [facility] Basophils Relative 0.5 % LAB HEMETOLOGY METHOD 07/03/2025 9:[address] [facility] Immature Granulocytes Relative 0.5 % LAB HEMETOLOGY METHOD 07/03/2025 9:[address] [facility] Neutrophils Absolute 4.57 1.50 - 7.00 K/[facility] LAB HEMETOLOGY METHOD 07/03/2025 9:55 AM EDT [facility] Lymphocytes Absolute 2.05 1.00 - 5.00 K/[facility] HEMETOLOGY METHOD 07/03/2025 9:55 AM EDT [facility] Monocytes Absolute 0.51 0.20 - 1.00 K/mcL LAB HEMETOLOGY METHOD 07/03/2025 9:55 AM EDT [facility] Eosinophils Absolute 0.15 0.00 - 0.50 K/[facility] HEMETOLOGY METHOD 07/03/2025 9:55 AM EDT [facility] Basophils Absolute 0.04 0.00 - 0.20 K/mcL LAB HEMETOLOGY METHOD 07/03/2025 9:55 AM EDT [facility] Immature Granulocytes Absolute 0.04(H) 0.00 - 0.03 K/[facility] HEMETOLOGY METHOD 07/03/2025 9:55 AM EDT [facility] Blood Venous blood specimen / Unknown Venipuncture / Unknown 07/03/2025 9:41 AM EDT 07/03/2025 9:47 AM EDT Jennifer Mendes MD LAB BLOOD ORDERABLES Final Resul t [facility] [address] [place] [address], * D-dimer, quantitative (07/03/2025 9:41 AM EDT) [...] infected, trauma patients, DIC, acute CVA, acute OH, unstable angina, AF, old age, , and smoking. D-Dimer may be decreased with: Initiation of heparin therapy and oral anticoagulants. Anisa ANSARI LAB BLOOD ORDERABLES Final R esult Performing Organization Address [facility]/ZIP Co de Phone Number [facility] [address] [place] [address], [place] [phone] * hCG, serum, qualitative (07/03/2025 9:41 AM EDT) hCG Qual Negative Negative 07/03/2025 10:11 AM EDT [facility] Blood Venous blood specimen / Unknown Venipuncture / Unknown 07/03/2025 9:41 AM EDT 07/03/2025 9:47 AM EDT Anisa ANSARI LAB BLOOD ORDERABLES Final R esult Performing Organization Address [facility]/ZIP Co de Phone Number [facility] [address] [place] [address], [place] [phone] * B-type natriuretic peptide (07/03/2025 9:41 AM EDT) BNP <2 <=100 pcg/mL LAB CHEMISTRY METHOD 07/03/2025 10:34 AM EDT [facility] Blood Venous blood specimen / Unknown Venipuncture / Unknown 07/03/2025 9:41 AM EDT 07/03/2025 9:47 AM EDT Jennifer Mendes MD LAB BLOOD ORDERABLES Final Resul t Performing Organization Address [facility] de Phone Number [facility] [address] [place] [address], [place] [phone] * Magnesium (07/03/2025 9:41 AM EDT) [facility] Magnesium 2.3 1.9 - 2.6 mg/dL LAB CHEMISTRY METHOD 07/03/2025 10:24 AM EDT [facility] Blood Venous blood specimen / Unknown Venipuncture / Unknown 07/03/2025 9:41 AM EDT 07/03/2025 9:47 AM EDT us Jennifer Mendes MD LAB BLOOD ORDERABLES Final Resul t Performing Organization Address [facility] de Phone Number [facility] [address] [place] [address], * Lipase (07/03/2025 9:41 AM EDT) [facility] Lipase 15 13 - 75 unit/L LAB CHEMISTRY METHOD 07/03/2025 10:24 AM EDT [facility] Blood Venous blood specimen / Unknown Venipuncture / Unknown 07/03/2025 9:41 AM EDT 07/03/2025 9:47 AM EDT us Jennifer Mendes MD LAB BLOOD ORDERABLES Final Resul t Performing Organization Address [facility] de Phone Number [facility] [address] [place] [address], [place] [phone] * (ABNORMAL) Comprehensive metabolic panel (07/03/2025 9:41 AM EDT) [facility] Sodium 142 133 - 145 mmol/L LAB CHEMISTRY METHOD 07/03/2025 10:24 AM EDT [facility] Potassium 4.1 3.5 - 5.5 mmol/L LAB CHEMISTRY METHOD 07/03/2025 10:[address] [facility] Chloride 111(H) 96 - 110 mmol/L LAB CHEMISTRY METHOD 07/03/2025 10:[address] [facility] CO2 26 21 - 32 mmol/L LAB CHEMISTRY METHOD 07/03/2025 10:[address] [facility] Anion Gap 5 3 - 11 LAB CHEMISTRY METHOD 07/03/2025 10:[address] [facility] Glucose 120(H) 70 - 100 mg/dL LAB CHEMISTRY METHOD 07/03/2025 10:[address] [facility] BUN 18 5 - 25 mg/dL LAB CHEMISTRY METHOD 07/03/2025 10:[address] [facility] Creatinine 0.84 0.50 - 1.10 mg/dL LAB CHEMISTRY METHOD 07/03/2025 10:[address] [facility] eGFR 85 >=60 mL/min/1. 73m2 LAB CHEMISTRY METHOD 07/03/2025 10:[address] [facility] Comment:Calculation based on the Chronic Kidney Disease Epidemiology Collaboration (CKD-EPI) equation refit without adjustment for race. BUN/Creatinine Ratio 21.4 LAB CHEMISTRY METHOD 07/03/2025 10:[address] [facility] Calcium 8.6 8.5 - 10.5 mg/dL LAB CHEMISTRY METHOD 07/03/2025 10:[address] [facility] AST (SGOT) 17 10 - 42 unit/L LAB CHEMISTRY METHOD 07/03/2025 10:[address] [facility] ALT (SGPT) 22 10 - 60 unit/L LAB CHEMISTRY METHOD 07/03/2025 10:[address] [facility] Alkaline Phosphatase 137(H) 42 - 121 unit/L LAB CHEMISTRY METHOD 07/03/2025 10:[address] [facility] Total Protein 7.0 6.0 - 8.0 g/dL LAB CHEMISTRY METHOD 07/03/2025 10:24 AM EDT [facility] Albumin 3.6 3.2 - 5.0 [...] MD LAB BLOOD ORDERABLES Final Resul t [facility] ([facility]) [facility] [address] [place] [address], [place] [phone] from Last 3 Months Insurance [employer] [facility] Advance Directives * Full Code - [...] currently active code status orders. Care Teams Pearl Digger Relationship Specialty Start Date End Date Caridad Louis MD [address] [place] [id number] PCP - General Internal Medicine 08/28/21
--- NOTE | 2025-08-23 11:17 | MHC.OFFVISWM ---
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 Allergies nitrofurantoin (From MACROBID) Allergy (Unknown, Verified 08/23/25 11:18) respiratory symptoms NSAIDS (Non-Steroidal Anti-Inflamma Adverse Reaction (Mild, Verified 08/23/25 11:18) Stomach issues Adhesive Tape Allergy (Intermediate, Uncoded 08/23/25 11:18) Hives SEASONAL ALLERGIES Allergy (Intermediate, Uncoded 08/23/25 11:18) respiratory symptoms Medication List - Last Reconciled 08/23/25 by Kris Tinoco MD albuterol sulfate 90 mcg/actuation inhalation aripiprazole 20 mg PO DAILY cholecalciferol (vitamin D3) 1,250 mcg PO QWEEK clonazepam 1 tab PO BID PRN cyanocobalamin (vitamin B-12) 1,000 mcg IM QMONTH 90 days diphenoxylate-atropine 2.5-0.025 mg (Lomotil) 1 tab PO BID PRN esomeprazole magnesium 40 mg PO DAILY famotidine 40 mg PO BEDTIME fluconazole 150 mg PO QWEEK 4 weeks insulin syringe-needle U-100 ([facility] Syringes) use once per month for b12 injection lamotrigine 200 mg PO BID 30 days loperamide 2 mg PO Q6H PRN mirtazapine mg PO nortriptyline 10 mg PO BEDTIME ondansetron 8 mg PO Q8H PRN pregabalin 100 mg PO TID 15 days pyridoxine (vitamin B6) 50 mg PO DAILY scopolamine base 1 patch transdermal Q3D PRN sertraline 50 mg PO DAILY sucralfate (Carafate) 1 g PO QID 30 days HPI HPI 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 BMI: Details: Start time: 11.10am, End time: 12.04pm ?I spent 49 minutes speaking with the patient on the phone plus an additional 5 minutes reviewing and updating records for a total of 54 minutes HPI Comments Details: Previous weight loss efforts: open gastric bypass (pre bypass wt: 405lbs, lowest: 250lbs) Wakes up: 5am-6.30am, Sleeps: 9pm Breakfast: skips Lunch: 12pm (Premier and a fruit) Dinner: 5pm (chicken, burger, salads) Snacks: 7-8pm (popcorn) Exercise: has a home elliptical and treadmill (inclines and tracks calories) Beverages: Coffee: (2 cups/d with creamer), Tea: none, Soda: none, Juice: fruit smoothie, ETOH: none PFSH Medical History (Updated 08/23/25 @ 11:36 by Kris Tinoco MD) DJD (degenerative joint disease) Morbid obesity B12 deficiency Weight gain Dyspnea on exertion Chronic pain of both feet Fatigue Therapeutic drug monitoring Diarrhea LUQ pain RUQ pain Anemia Urinary retention Obesity Recurrent UTI DARRIUS (obstructive sleep apnea) Neuropathy Hyperplastic adenomatous polyp of stomach Erosive esophagitis Chronic foot pain Chondromalacia patellae Cervical radiculopathy GERD (gastroesophageal reflux disease) Nausea & vomiting Skin ulcer of abdomen Asthma Encounter for insertion of mirena IUD DARRIUS on CPAP Urinary bladder disorder Hiatal hernia with GERD Rectovaginal fistula Contusion of right knee Gastritis Vomiting Heart murmur Bipolar depression Moderate asthma Surgical History (Updated 07/07/25 @ 16:32 by Jonelle Cox) H/O eye surgery S/P implantation of urinary electronic stimulator device H/O hernia repair History of esophagogastroduodenoscopy (EGD) History of open reduction and internal fixation (ORIF) procedure History of colonoscopy (~04/14/24) H/O dilation and curettage Hx laparoscopic cholecystectomy Gastric bypass status for obesity (~1999) Family History Father Hx of type 1 diabetes mellitus Mother Hx of colon cancer, stage IV Social History Household Members: Spouse Housing: House Are you a primary acute care certified nursing assistant to a significant other at home: No Do you presently have visiting nurse or other home services: No Alcohol intake: current Alcohol intake frequency: does not drink Comment: RIGHT KNEE CONTUSION Patient Tobacco Use Status: Former Tobacco user Tobacco use type: Cigarette Years Smoked: quit in 2003, only smoked for a couple years e-Cigarette/Vaping Use: Never Used Second Hand Smoke Exposure: No service: No Current occupational status: employed 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 Nutritional counseling. Start with one premade PREMIER protein (buy at [employer] or [employer]) shake (8oz of Premier and NOT the whole bottle) at 7am-9am, one protein bar (Fit Crunch protein bar, buy at [employer], or [employer]) at 10am-12pm, another premade PREMIER protein shake (8oz of Premier and NOT the whole bottle) at 1pm-3pm, another Fit Crunch protein bar,? dinner at 7pm (6 forks of protein and 6 forks of salad/vegetables). So you do 2 protein shakes, 2 protein bars and one meal per day. Meal to include lean meat (beef, fish, pork, turkey, chicken), or georgian yogurt, or egg whites, or beans with a salad with olive oil and fruits (berries, pears, apples, kiwi). Avoid salt, breads, potatoes, rice, pasta, desserts. 3. Each shake would be drunk slowly, like coffee in a period of 2 hours. 4. Cut each bar in 4 pieces and eat each piece in 30min ?to make each bar last 2 hours. 5. I emphasized the importance of measuring accurately the food portion and measure it when serving the food in plate 6. The meal portions include 6 full-size forks of meat and 6 full-size forks of salad. You always eat the meat portion but you can replace up to 3 forks for salad/vegetables with rice, potatoes or pasta, or a fruit ?if you like. The less you do it the better weight loss will be. 7. One full-size fork is what it can be scooped on the fork without falling aside and not what can be bit with the fork. Use regular forks like those you find in a typical restaurant. 8.? Please buy the body composition scale we discussed and send me weight measurements as soon as possible and then once a week. Always include your diet and exercise plan. 9. Start treadmill with an incline of 0.0 and speed of 2.0mph. Increase incline by 1 every 3 min to a max incline of 6.0, stay 3min at 6.0 and then return to 0.0 and repeat same steps until calorie goal is met. Goal is to burn 2000 calories per week on exercise, which means either 300 calories daily. 10.?I ordered a medication to help you with the weight loss which is called Zepbound. My office will try to authorize it. Please let me know when you receive it so I can give you a meal and exercise plan. Common side effects include nausea, vomiting, constipation, diarrhea, abdominal pain. Please let me know if you develop any of these symptoms. 11. Goal is to lose at least 1.5-2lbs per week 12. Goal to lose at least 10% of your weight, which is about 36lbs. Minimum weight goal: 310lbs 13. Please follow the diet plan exactly without any change. If you don't like something about the plan or you feel hungry you need to communicate with me so I can help you revise the plan. You should not change the plan yourself 14. To be scheduled for EGD to assess the stomach's anatomy. The possibility of biopsies was discussed. Patient needs to avoid use of NSAIDs and aspirin for 1 week prior to EGD. You must be on liquids only the day before your endoscopy. Risks of perforation and bleeding was discussed with the patient. This will be an outpatient procedure with IV sedation. Medications: New tirzepatide (weight loss) (Zepbound) for 4 weeks 2.5 mg (0.5 mL) subcut QWEEK 2 mL 0RF E66.01 - Morbid (severe) obesity due to excess calories, G47.33 - Obstructive sleep apnea (adult) (pediatric)
[2025-08-23 12:03] VITALS: BMI 63.3
== END 2025-08-23 12:05 | disposition home or self-care (01) ==
LOC: HO.HBS 08:07
PROVIDERS: PCP Internal Medicine; Visit Provider Surgery
DX: E66.01 Morbid (severe) obesity due to excess calories (principal); Z68.44 Body mass index [BMI] 60.0-69.9, adult
CPT/HCPCS: 99204